=== PATIENT | male | born 1940 | race Caucasian/White ===

== ENCOUNTER → 2017-03-09 | Outpatient (CLI) | payer OTHER ==
[~2017-03-09] MED LIST: ACYC1CAP8 PO; ADVIN50050 INH; ALBU2SYP9 INH; CHOL1CAP PO; DOXA8TAB2 PO; ERYT250C PO; FLUO20CA35 PO; INSU100I SQ; LABE1TAB28 PO; MAGNESIUM CHLORIDE PO; MYCO180T PO; OMEG12006 PO; PANT40TA PO; POSA1TAB PO; PRED-301 PO; ROSU40TA PO; SODI650T8 PO; SULF1TAB92 PO; TACR0.5C3 PO; TOBR1NEB INH; [UNRECOGNIZED DRUG - CODE] SQ
[2017-03-09 14:47] LABS: URINE APPEARANCE CLOUDY (CLEAR); URINE BILIRUBIN NEG (NEG); URINE COLOR YELLOW; URINE EPITHELIAL CELL AUTO >30 /lpf (0-5); URINE NITRITE NEG (NEG); URINE SPECIFIC GRAVITY 1.021 (1.000-1.030); UROBILINOGEN NEG (NEG)
[2017-03-09 14:48] LABS: HEMATOCRIT 27.9 % (42-52); MEAN CELL VOLUME 104.1 fL (80-100); MEAN CORPUSCULAR HGB CONC 32.6 g/dl (32-36); MEAN PLATELET VOLUME 11.2 fL (7.4-10.4); PLATELET COUNT 232 K/uL (130-400); RED BLOOD COUNT 2.68 M/uL (4.7-6.1); WHITE BLOOD COUNT 5.87 K/uL (4.8-10.8)
[2017-03-09 14:51] LABS: MANUAL MICROSCOPIC REQUIRED? NO; REVIEW REQ? YES
[2017-03-09 15:21] LABS: BLOOD UREA NITROGEN 51 mg/dl (7-18); BUN/CREATININE RATIO 11.4 (10-20); CARBON DIOXIDE 24 mmol/L (21-32); CHLORIDE 107 mmol/L (98-107); FERRITIN 34.7 ng/ml (8.0-388.0); GLUCOSE 113 mg/dl (70-99); PHOSPHORUS 3.4 mg/dl (2.5-4.9); POTASSIUM 4.9 mmol/L (3.5-5.1); SODIUM 140 mmol/L (136-145); TOTAL IRON BINDING CAPACITY 326 mcg/dl (250-450)
[2017-03-09 15:27] LABS: URINE PROTIEN/CREAT RATIO 0.5 (0-0.2); URINE TOTAL PROTEIN 91.9 mg/dl (0-11.9)
== END | disposition home or self-care (01) ==
LOC: C.LAB1850 13:49
PROVIDERS: ATTEND Internal Medicine Nephrology
DX: N18.4 Chronic kidney disease, stage 4 (severe) (principal)

== ENCOUNTER → 2017-03-16 | Outpatient (CLI) | payer OTHER ==
[~2017-03-16] MED LIST changes: +PATIENT'S ALLERGY INFO NEEDS ENTERED SCH; +SODIUM CHLORIDE 0.9% 1000ML 1,000 ML IV SCH
--- NOTE | 2017-03-16 11:53 | DIAGNOSTIC IMAGING REPORT ---
RETROPERITONEAL COMPLETE, DUPLEX RENAL ARTERY HISTORY: 76 years-old Male 17.9 ADEEL (acute kidney injury)[id number] acute kidney injury. COMPARISON: None available. TECHNIQUE: Multiple real-time sonographic images of the bilateral kidneys and urinary bladder were obtained assessing grayscale appearance and color flow. Spectral and color Doppler waveform analysis was also obtained. FINDINGS: RIGHT KIDNEY: Length is 10.1 cm. Mild diffuse cortical thinning with increased renal parenchymal echogenicity is noted. No renal calculi, hydronephrosis or focal mass identified. LEFT KIDNEY: Length is 9.7 cm. Mild/moderate cortical thinning with increased echogenicity is also seen on the left. No renal calculi, hydronephrosis or focal mass identified. Urinary bladder is partially collapsed with bilateral ureteral jets documented. DUPLEX ANALYSIS: RIGHT: No evidence of renal artery stenosis. The main renal vein is patent. LEFT: No evidence renal artery stenosis. There is limited visualization of the renal artery. The main renal vein appears patent. Plug flow is noted within the aorta with peak systolic velocity of 88 cm/s. IMPRESSION: 1. Moderate cortical thinning with increased echogenicity of the bilateral kidneys suggests chronic medical renal disease. No hydronephrosis, renal calculi or focal mass identified. 2. No evidence of renal artery stenosis. 3. Partially collapsed urinary bladder lumen. The above report was generated using voice recognition software. It may contain grammatical, syntax or spelling errors. Electronically signed by: Nathaniel Dan M.D. 03/16/2017 11:51 AM Dictated Date/Time: 03/16/2017 11:46 AM
[2017-03-16 12:41] LABS: BLOOD UREA NITROGEN 51 mg/dl (7-18); BUN/CREATININE RATIO 11.4 (10-20); CALCIUM 8.9 mg/dl (8.5-10.1); CARBON DIOXIDE 20 mmol/L (21-32); CHLORIDE 108 mmol/L (98-107); GLUCOSE 116 mg/dl (70-99); PHOSPHORUS 3.4 mg/dl (2.5-4.9); POTASSIUM 4.7 mmol/L (3.5-5.1); SODIUM 140 mmol/L (136-145)
== END | disposition home or self-care (01) ==
LOC: C.ULTR 09:58
PROVIDERS: ATTEND Internal Medicine Nephrology
DX: N17.9 Acute kidney failure, unspecified (principal)

== ENCOUNTER → 2017-04-09 | Outpatient (CLI) | payer OTHER ==
[~2017-04-09] MED LIST changes: +ACYC-57 PO; -ACYC1CAP8 PO; -PATIENT'S ALLERGY INFO NEEDS ENTERED SCH; -SODIUM CHLORIDE 0.9% 1000ML 1,000 ML IV SCH
[2017-04-09 15:51] LABS: HEMATOCRIT 29.8 % (42-52); MEAN CELL VOLUME 107.6 fL (80-100); MEAN CORPUSCULAR HGB CONC 32.6 g/dl (32-36); MEAN PLATELET VOLUME 11.2 fL (7.4-10.4); PLATELET COUNT 183 K/uL (130-400); RED BLOOD COUNT 2.77 M/uL (4.7-6.1)
[2017-04-09 16:23] LABS: BLOOD UREA NITROGEN 43 mg/dl (7-18); BUN/CREATININE RATIO 12.7 (10-20); CALCIUM 8.4 mg/dl (8.5-10.1); CARBON DIOXIDE 26 mmol/L (21-32); CHLORIDE 110 mmol/L (98-107); CREATININE 3.39 mg/dl (0.60-1.40); GLUCOSE 101 mg/dl (70-99); POTASSIUM 3.6 mmol/L (3.5-5.1); SODIUM 143 mmol/L (136-145)
== END | disposition home or self-care (01) ==
LOC: C.LAB1850 14:52
PROVIDERS: ATTEND Internal Medicine Nephrology
DX: N18.5 Chronic kidney disease, stage 5 (principal)

== ENCOUNTER → 2017-05-28 | Day surgery (SDC) | payer OTHER ==
[2017-05-06 14:51] VITALS: BMI 24.0
--- NOTE | 2017-05-06 15:45 | PAT Medication Instructions ---
Service Date May 06, 2017. Current Home Medication List Acyclovir (Zovirax), 400 MG PO DAILY Albuterol Sulf (Ventolin), 2.5 MG INH Q12 Aspirin (Aspirin Ec), 81 MG PO QAM Azithromycin (Zithromax), 250 MG PO 3XWEEK Cholecalciferol (Kp Vitamin D), 1 CAP PO QAM Darbepoetin Jimenez-Polysorbate 8 (Aranesp Albumin Free), 0.3 ML SQ WK Doxazosin Mesylate (Cardura), 1 TAB PO HS Erythromycin Base (Erythromycin), 250 MG PO 3XWK Fluoxetine (Prozac), 20 MG PO QAM Fluticasone Prop/Salmeterol (Advair Diskus 500-50 Mcg/Dose), 1 INHA INH Q12 Furosemide (Lasix), 40 MG PO QAM Insulin Lispro (Human) (Humalog), Unknown Dose SQ AC PRN for BSG >140 Labetalol (Normodyne), 200 MG PO BID Montelukast Sodium (Singulair), 10 MG PO HS Mycophenolate Sodium (Myfortic), 3 TABS PO BID [place]-3 Fatty Acids ([place] 3), 2 CAP PO BID Pantoprazole (Protonix), 40 MG PO BID Posaconazole (Noxafil), 300 MG PO DAILY Prednisone (Prednisone), 5 MG PO QAM Rosuvastatin Calcium (Crestor), 40 MG PO HS Sulfamethoxazole-Trimethoprim (Bactrim 400MG/80MG), 1 TAB PO 2XWEEK Tacrolimus (Prograf), 0.5 MG PO QAM Tacrolimus (Prograf), 0.5 MG PO 3XWEEK Tobramycin (Bethkis), 300 MG INH Q12 [Slo Mag], 2 TAB PO QPM Medication Instructions For Your Scheduled Surgery -Continue as directed: Darbepoetin Jimenez-Polysorbate 8 (Aranesp Albumin Free), 0.3 ML SQ WK Azithromycin (Zithromax), 250 MG PO 3XWEEK Erythromycin Base (Erythromycin), 250 MG PO 3XWK Sulfamethoxazole-Trimethoprim (Bactrim 400MG/80MG), 1 TAB PO 2XWEEK Tacrolimus (Prograf), 0.5 MG PO 3XWEEK - Hold the following medications 2 weeks prior to surgery: [place]-3 Fatty Acids ([place] 3), 2 CAP PO BID - Contact your surgeon for instructions for: Aspirin (Aspirin Ec), 81 MG PO QAM - Hold the following medications the morning of surgery: Furosemide (Lasix), 40 MG PO QAM Cholecalciferol (Kp Vitamin D), 1 CAP PO QAM Insulin Lispro (Human) (Humalog), Unknown Dose SQ AC PRN for BSG >140 - Take the following medications the morning of surgery with a sip of water: Tobramycin (Bethkis), 300 MG INH Q12 Tacrolimus (Prograf), 0.5 MG PO QAM Prednisone (Prednisone), 5 MG PO QAM Pantoprazole (Protonix), 40 MG PO BID Mycophenolate Sodium (Myfortic), 3 TABS PO BID Fluoxetine (Prozac), 20 MG PO QAM Fluticasone Prop/Salmeterol (Advair Diskus 500-50 Mcg/Dose), 1 INHA INH Q12 Labetalol (Normodyne), 200 MG PO BID Acyclovir (Zovirax), 400 MG PO DAILY Albuterol Sulf (Ventolin), 2.5 MG INH Q12 - Take the following medications as scheduled the night before surgery: [Slo Mag], 2 TAB PO QPM Tobramycin (Bethkis), 300 MG INH Q12 Rosuvastatin Calcium (Crestor), 40 MG PO HS Posaconazole (Noxafil), 300 MG PO DAILY Mycophenolate Sodium (Myfortic), 3 TABS PO BID Fluticasone Prop/Salmeterol (Advair Diskus 500-50 Mcg/Dose), 1 INHA INH Q12 Labetalol (Normodyne), 200 MG PO BID Montelukast Sodium (Singulair), 10 MG PO HS Doxazosin Mesylate (Cardura), 1 TAB PO HS Albuterol Sulf (Ventolin), 2.5 MG INH Q12 If you have any questions please call us at [phone] or [phone] or [phone]
[2017-05-06 16:24] LABS: COMPLETE YES; EOS % 0.3 %; HEMATOCRIT 32.6 % (42-52); IG% 1.5 %; LYMPH ABS # 0.12 K/uL (1.2-3.4); MEAN CELL VOLUME 104.2 fL (80-100); MEAN CORPUSCULAR HEMOGLOBIN 34.2 pg (25-34); MEAN CORPUSCULAR HGB CONC 32.8 g/dl (32-36); MEAN PLATELET VOLUME 11.9 fL (7.4-10.4); MONO % 2.6 %; NEUT % 93.6 %; PLATELET COUNT 173 K/uL (130-400); RED BLOOD COUNT 3.13 M/uL (4.7-6.1); WHITE BLOOD COUNT 6.06 K/uL (4.8-10.8)
[2017-05-06 16:30] LABS: BUN/CREATININE RATIO 22.5 (10-20); CALCIUM 8.8 mg/dl (8.5-10.1); CREATININE 3.65 mg/dl (0.60-1.40); POTASSIUM 4.6 mmol/L (3.5-5.1)
[2017-05-06 16:40] LABS: INR 1.1 (0.9-1.1); PARTIAL THROMBOPLASTIN RATIO 0.9; PROTHROMBIN TIME (PATIENT) 11.5 SECONDS (9.0-12.0)
--- NOTE | 2017-05-06 17:04 | DIAGNOSTIC IMAGING REPORT ---
CHEST PREADMISSION(PA/LAT) HISTORY: Preop. COMPARISON: None. FINDINGS: Lucency within the right upper lung zone appears to be due to a large bulla. No definite pneumothorax. No pleural effusions. Interstitial thickening within the right mid to lower lung zone with mild elevation of the right hemidiaphragm. The left lung is clear. The heart is normal in size. An atrial septal closure device is noted. IMPRESSION: 1. Lucency within the right upper lung zone which is likely due to a large bulla. No definite pneumothorax. 2. Interstitial thickening within the right mid to lower lung zone which is age indeterminate due to the lack of a comparison study but is likely chronic. There is associated volume loss within the right hemithorax. Comparison to old studies will be helpful to evaluate for stability. Electronically signed by: Alexandro Frye M.D. 05/06/2017 5:02 PM Dictated Date/Time: 05/06/2017 4:59 PM
[~2017-05-28] VITALS: Ht 182.9 cm; Wt 80.9 kg
[~2017-05-28] MED LIST changes: +ASPI81TA28 PO; +ATROPINE SULFATE 0.1 MG/ML 5ML SYR IV PRN; +AZIT250T PO; +BUPIVACAINE/EPINEPHRINE 0.5% MPF 1:200,000 30 ML VIAL ONE; +CEFAZOLIN 2000MG IV PUSH 10 ML IV SCH; +EpHEDrine SULFATE INJ 50 MG/ML AMP IV PRN; +FENTANYL CITRATE INJ 50 MCG/1 ML 2 ML VIAL IV PRN; +FENTANYL CITRATE INJ 50 MCG/1 ML 2 ML VIAL ONE; +FRS/40 PO; +GELATIN SPONGE 12-7MM ONE; +HEPARIN SOD (PORCINE) 1000 UNIT/ML 10 ML VIAL ONE; +HydrALAZINE HCL 20 MG/ML VIAL ONE; +LIDOCAINE HCL 1% 20 ML VIAL ONE; +LIDOCAINE HCL 2% 2 ML VIAL (20MG/ML) ONE; +LIDOCAINE/EPINEPHRINE 1% 20 ML VIAL ONE; -MAGNESIUM CHLORIDE PO; +MIDAZOLAM HCL 1 MG/ML 2ML VIAL ONE; +MONT1TAB3 PO; +PROPOFOL IV EMULSION 10 MG/ML 20 ML VIAL IV ONE; +SLO MAG PO; -SODI650T8 PO; +SODIUM CHLORIDE 0.9% 1000ML 1,000 ML IV SCH; -SULF1TAB92 PO; +SULF400T7 PO; +THROMBIN FOR SOLN 20000 UNIT KIT ONE; +TRAM-10 PO; +TRAMADOL HCL 50 MG HOME PACK PO SCH
--- NOTE | 2017-05-28 06:04 | History and Physical ---
History & Physical Date of Service May 28, 2017. History & Physical CC: End stage renal disease HPI: Mr. 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 He does have renal insufficiency and may need dialysis in the future. He is here for evaluation for fistula placement. ALLERGIES: LEVOFLOXACIN, OXYCODONE. MEDICATIONS: Acyclovir, Advair Diskus, albuterol, Aranesp, and Aspir. He is also on azithromycin, Bactrim, Bethkis, Crestor, doxazosin, insulin, labetalol , Lovaza, Myfortic, Noxafil, pantoprazole, prednisone, magnesium, sodium bicarbonate, tacrolimus, vitamin D3. PAST MEDICAL HISTORY: Positive for high blood pressure, diabetes, stroke, kidney disease, and lung disease. PAST SURGICAL HISTORY: Include tonsillectomy, hernia repair, and lung transplant. He also had an eye removal in 1990, had a heart surgery in 2014 to replace a septal defect. FAMILY HISTORY: Positive for high blood pressure and cancer. REVIEW OF SYSTEMS: Ten systems reviewed. Positive findings are cold intolerance, irregular heartbeat, frequent cough, joint swelling of his legs, nausea, loss of appetite, diarrhea, occasional incontinence, ulcer in the second toe of right foot, and pain in the legs with walking. PHYSICAL EXAMINATION: The patient is awake, oriented x3. He is in no apparent distress. He has normal body habitus. Blood pressure is 172/82 on the left, 172/80 on the right. Head and neck within normal limits. I could not appreciate carotid bruits. Lungs: Distant breath sounds. Heart had a regular rate and rhythm. Abdominal exam is benign. Vascular exam of his radials, carotids, supratemporal arteries +2 bilaterally. Femorals are +2. Pedal pulses are +1 bilaterally. There is good capillary refill in both feet. Extremity exam shows a scar on the tip of the right second toe. No evidence of infection is noted. Neurologic exam is grossly intact. He does have good cephalic veins in both arms both by ultrasound and physical exam. IMPRESSION: 1. End-stage renal disease. 2. Right toe ulcer. PLAN AND RECOMMENDATIONS: At this point, we recommended a right wrist AV fistula being he is left-handed. He understood the risks, options, benefits and agreed to this procedure
[2017-05-28 12:20] VITALS: BP 190/94; PULSE 67; TEMP 36.5; O2SAT 95
[2017-05-28 12:54] VITALS: Ht 182.9 cm; Wt 80.9 kg
[2017-05-28 13:31] LABS: BUN/CREATININE RATIO 15.9 (10-20); CALCIUM 8.5 mg/dl (8.5-10.1); CREATININE 4.78 mg/dl (0.60-1.40); POTASSIUM 5.3 mmol/L (3.5-5.1)
--- NOTE | 2017-05-28 14:25 | History & Physical Bridge Note ---
H&P Re-Evaluation Bridge Note: I have examined the patient, reviewed the History & Physical and in the interval since the performance of the History & Physical I have noted the following changes of clinical significance: No changes noted
--- NOTE | 2017-05-28 16:07 | [facility] Post Operative Brief Note ---
Immediate Operative Summary Operative Date May 28, 2017. Pre-Operative Diagnosis End-stage renal disease. Post-Operative Diagnosis Same Procedure(s) Performed Right wrist anteriovenous fistula Surgeon Dr Oconnell Jack Winder Surgeon(s) Miroslava Ellison MD, Judith ESQUIVEL Estimated Blood Loss 5ml Findings good thrill Specimens none per surgeon Anesthesia MAC Complication(s) None Disposition Recovery Room / PACU
--- NOTE | 2017-05-28 16:11 | Discharge Instructions ---
Discharge Instructions Date of Service May 28, 2017. Visit Reason for Visit: End Stage Renal Disease Discharge Discharge Diagnosis / Problem: End stage renal disease Discharge Goals Goal(s): Therapeutic intervention Activity Recommendations Activity Limitations: per Instructions/Follow-up section Anesthesia . Post Anesthesia Instructions: If you have had General Anesthesia or IV Sedation: * Do not drive today. * Resume driving when surgeon permits. * Do not make important decisions or sign legal documents today. * Call surgeon for: 1. Temperature elevations greater than 101 degrees F. 2. Uncontrollable pain. 3. Excessive bleeding. 4. Persistent nausea and vomiting. 5. Medication intolerance (nausea, vomiting or rash). * For nausea and vomiting use only clear liquids such as: tea, soda, bouillon until nausea subsides, then gradually increase diet as tolerated. * If you have any concerns or questions, call your surgeon's office. If physician is unavailable and it is an emergency, call 911 or go to the nearest emergency room. . Instructions / Follow-Up Instructions / Follow-Up Call [phone] to schedule a follow up appointment if one not already scheduled. ACTIVITY RECOMMENDATIONS: See Above SPECIAL CARE INSTRUCTIONS: Call your doctor if: * Temperature above 101 degrees * Pain not relieved by pain medicine ordered * There is increased drainage or redness from any incision * You have any unanswered questions or concerns. Diet Recommendations Recommended Home Diet: resume previous diet Procedures Procedures Performed: Right wrist anteriovenous fistula Pending Studies Studies pending at discharge: no Medical Emergencies . Who to Call and When: Medical Emergencies: If at any time you feel your situation is an emergency, please call 911 immediately. . Non-Emergent Contact Non-Emergency issues call your: Surgeon . . "Provider Documentation" section prepared by Fran Oconnell. .
--- NOTE | 2017-05-28 16:22 | OPERATIVE REPORT ---
DATE OF OPERATION: 05/28/2017 PREOPERATIVE DIAGNOSIS: End-stage renal disease in need of permanent hemodialysis access. POSTOPERATIVE DIAGNOSIS: Same. PROCEDURE: Right upper extremity radiocephalic AV fistula creation. SURGEON: Dr. Fran Oconnell. GROCERY CHECKER: Dr. Miroslava Ellison and IRA Golden. ANESTHESIA: Local plus conscious sedation. INTRAVENOUS FLUIDS: 150 mL. URINE OUTPUT: Not recorded. COMPLICATIONS: None apparent. CONDITION: Stable to PACU. INDICATIONS: Mr. Bill is a 76-year-old male with end-stage renal disease, not yet on hemodialysis. He presents for placement of a permanent hemodialysis access. He was advised risks of having an AV fistula placed and he agreed to undergo the procedure. PROCEDURE: The patient was brought into the operative suite. He was prepped and draped in usual fashion. Timeout occurred. Local anesthetic with lidocaine was instilled on lateral aspect of his distal right arm. A vertical incision was made in between the cephalic vein and radial artery. Cephalic artery was dissected out. There appeared to be of adequate caliber. Next, the attention was turned to the radial artery. This was dissected out. This was found to be small; however, had appeared soft without significant calcification. It was decided that it would be adequate for fistula creation. Attention was returned to the vein. All branches were tied and the vein was transected distally. This was swung over to the radial artery. The vein was dilated with heparinized saline and found to be very distant easily. Angled bulldog clamps were applied to the radial artery. Arteriotomy was performed. The end of the vein was cut to size and an end-to-side anastomosis was made with 7-0 Prolene. Hemostasis was obtained. There was a good thrill in the graft. There was a distal pulse in the radial artery. The incision was then closed with running Vicryl sutures and subcuticular stitch. The patient tolerated the procedure well and was transferred to PACU in stable condition. Dr. Fran Oconnell was present and scrubbed for the entire case. I attest to the content of the Intraoperative Record and any orders documented therein. Any exceptions are noted below. [facility]
--- NOTE | 2017-05-28 16:35 | Anesthesiology Progress Note ---
Anesthesia Post Op Note Date & Time May 28, 2017 at 16:35 Vital Signs Pain Intensity: 0 Vital Signs Past 12 Hours Date Time Temp Pulse Resp B/P (MAP) Pulse Ox O2 Delivery O2 Flow Rate FiO2 05/28/17 16:25 36.0 66 18 155/75 99 Room Air 05/28/17 16:15 66 10 161/79 100 Oxymask 10 05/28/17 16:08 36.2 71 18 170/135 100 Oxymask 10 05/28/17 12:20 36.5 67 20 190/94 (126) 95 Room Air Notes Mental Status: alert / awake / arousable, participated in evaluation Pt Amnestic to Procedure: Yes Nausea / Vomiting: adequately controlled Pain: adequately controlled Airway Patency, RR, SpO2: stable & adequate BP & HR: stable & adequate Hydration State: stable & adequate Anesthetic Complications: no major complications apparent
[2017-05-28 16:40] VITALS: BP 162/75; PULSE 66; TEMP 36.6; O2SAT 99
== END ==
LOC: C.ACU 11:24
PROVIDERS: ATTEND Surgery Vascular Surgery
DX: N18.6 End stage renal disease (principal); L97.519 Non-pressure chronic ulcer of other part of right foot with unspecified severity; I10 Essential (primary) hypertension; E11.9 Type 2 diabetes mellitus without complications; Z86.73 Personal history of transient ischemic attack (TIA), and cerebral infarction without residual deficits; J98.4 Other disorders of lung; Z90.89 Acquired absence of other organs; Z94.2 Lung transplant status; Z90.01 Acquired absence of eye; Z79.4 Long term (current) use of insulin; I48.91 Unspecified atrial fibrillation; E78.00 Pure hypercholesterolemia, unspecified; Z95.0 Presence of cardiac pacemaker; K21.9 Gastro-esophageal reflux disease without esophagitis; Z79.82 Long term (current) use of aspirin; M19.90 Unspecified osteoarthritis, unspecified site

== ENCOUNTER → 2017-07-13 | Outpatient (CLI) | payer OTHER ==
[~2017-07-13] MED LIST changes: -ATROPINE SULFATE 0.1 MG/ML 5ML SYR IV PRN; -BUPIVACAINE/EPINEPHRINE 0.5% MPF 1:200,000 30 ML VIAL ONE; -CEFAZOLIN 2000MG IV PUSH 10 ML IV SCH; -EpHEDrine SULFATE INJ 50 MG/ML AMP IV PRN; -FENTANYL CITRATE INJ 50 MCG/1 ML 2 ML VIAL IV PRN; -FENTANYL CITRATE INJ 50 MCG/1 ML 2 ML VIAL ONE; -GELATIN SPONGE 12-7MM ONE; -HEPARIN SOD (PORCINE) 1000 UNIT/ML 10 ML VIAL ONE; -HydrALAZINE HCL 20 MG/ML VIAL ONE; -LIDOCAINE HCL 1% 20 ML VIAL ONE; -LIDOCAINE HCL 2% 2 ML VIAL (20MG/ML) ONE; -LIDOCAINE/EPINEPHRINE 1% 20 ML VIAL ONE; -MIDAZOLAM HCL 1 MG/ML 2ML VIAL ONE; -PROPOFOL IV EMULSION 10 MG/ML 20 ML VIAL IV ONE; -SODIUM CHLORIDE 0.9% 1000ML 1,000 ML IV SCH; -THROMBIN FOR SOLN 20000 UNIT KIT ONE; -TRAMADOL HCL 50 MG HOME PACK PO SCH
[2017-07-13 14:35] LABS: MEAN CELL VOLUME 107.3 fL (80-100); MEAN CORPUSCULAR HEMOGLOBIN 34.7 pg (25-34); MEAN CORPUSCULAR HGB CONC 32.4 g/dl (32-36); MEAN PLATELET VOLUME 11.6 fL (7.4-10.4); PLATELET COUNT 158 K/uL (130-400); RED CELL DISTRIBUTION WIDTH CV 13.8 % (11.5-14.5); RED CELL DISTRIBUTION WIDTH SD 54.4 fL (36.4-46.3); WHITE BLOOD COUNT 8.88 K/uL (4.8-10.8)
[2017-07-13 14:43] LABS: ALBUMIN 3.4 gm/dl (3.4-5.0); BLOOD UREA NITROGEN 60 mg/dl (7-18); CARBON DIOXIDE 23 mmol/L (21-32); CREATININE 3.22 mg/dl (0.60-1.40); GLUCOSE 103 mg/dl (70-99); POTASSIUM 5.2 mmol/L (3.5-5.1); SODIUM 138 mmol/L (136-145)
[2017-07-13 14:48] LABS: PHOSPHORUS 3.2 mg/dl (2.5-4.9); TRANSFERRIN 192 mg/dl (200-360)
== END | disposition home or self-care (01) ==
LOC: C.LAB1850 12:40
PROVIDERS: ATTEND Internal Medicine Nephrology
DX: E55.9 Vitamin D deficiency, unspecified (principal); N18.4 Chronic kidney disease, stage 4 (severe); D64.9 Anemia, unspecified

== ENCOUNTER → 2017-09-10 | Outpatient (CLI) | payer OTHER ==
[2017-09-10 15:05] LABS: ALBUMIN 3.6 gm/dl (3.4-5.0); BLOOD UREA NITROGEN 88 mg/dl (7-18); CALCIUM 8.9 mg/dl (8.5-10.1); CARBON DIOXIDE 21 mmol/L (21-32); CREATININE 3.23 mg/dl (0.60-1.40); GLUCOSE 88 mg/dl (70-99); PHOSPHORUS 3.8 mg/dl (2.5-4.9); POTASSIUM 4.2 mmol/L (3.5-5.1); SODIUM 137 mmol/L (136-145)
== END | disposition home or self-care (01) ==
LOC: C.LAB1850 13:17
PROVIDERS: ATTEND Internal Medicine Nephrology
DX: N18.4 Chronic kidney disease, stage 4 (severe) (principal); E55.9 Vitamin D deficiency, unspecified

== ENCOUNTER → 2018-01-05 | Outpatient (CLI) | payer OTHER ==
[~2018-01-05] MED LIST changes: -TRAM-10 PO
[2018-01-05 14:33] LABS: HEMATOCRIT 38.1 % (42-52); HEMOGLOBIN 12.3 g/dL (14.0-18.0)
== END | disposition home or self-care (01) ==
LOC: C.LAB1850 12:31
PROVIDERS: ATTEND Internal Medicine Nephrology
DX: D64.9 Anemia, unspecified (principal); N18.5 Chronic kidney disease, stage 5

== ENCOUNTER → 2018-02-11 | Outpatient (CLI) | payer OTHER ==
[2018-02-11 15:29] LABS: HEMATOCRIT 34.6 % (42-52); HEMOGLOBIN 11.4 g/dL (14.0-18.0); MEAN CELL VOLUME 106.1 fL (80-100); MEAN CORPUSCULAR HGB CONC 32.9 g/dl (32-36); MEAN PLATELET VOLUME 12.4 fL (7.4-10.4); PLATELET COUNT 148 K/uL (130-400); RED CELL DISTRIBUTION WIDTH CV 12.9 % (11.5-14.5)
[2018-02-11 15:42] LABS: ALBUMIN 3.3 gm/dl (3.4-5.0); BLOOD UREA NITROGEN 89 mg/dl (7-18); CALCIUM 8.8 mg/dl (8.5-10.1); CARBON DIOXIDE 25 mmol/L (21-32); GLUCOSE 120 mg/dl (70-99); PHOSPHORUS 3.9 mg/dl (2.5-4.9); POTASSIUM 3.7 mmol/L (3.5-5.1); SODIUM 140 mmol/L (136-145)
== END | disposition home or self-care (01) ==
LOC: C.LABBC 13:42
PROVIDERS: ATTEND Internal Medicine Nephrology
DX: N18.5 Chronic kidney disease, stage 5 (principal)

== ENCOUNTER 2018-10-04 07:38 | Inpatient (IN) ==
[~2018-10-04 07:38] MED LIST changes: -ACYC-57 PO; -ADVIN50050 INH; -ALBU2SYP9 INH; -ASPI81TA28 PO; -AZIT250T PO; -CHOL1CAP PO; -DOXA8TAB2 PO; -ERYT250C PO; -FLUO20CA35 PO; -FRS/40 PO; +HEPARIN (PORCINE) 1000 UNIT/ML 10 ML (CATH LAB USE ONLY) ONE; -INSU100I SQ; -LABE1TAB28 PO; +MIDAZOLAM HCL 1 MG/ML 2ML VIAL ONE; -MONT1TAB3 PO; -MYCO180T PO; +NITROGLYCERIN/D5W 100MCG/ML 20ML SYR ONE; +NiCARDipine HCL INJ 2.5 MG/ML 10 ML AMP ONE; -OMEG12006 PO; -PANT40TA PO; -POSA1TAB PO; -PRED-301 PO; -ROSU40TA PO; -SLO MAG PO; -SULF400T7 PO; -TACR0.5C3 PO; -TOBR1NEB INH; -[UNRECOGNIZED DRUG - CODE] SQ; +fentaNYL citrate 100 MCG/2 ML VIAL ONE
[2018-10-04] MEDS ORDERED: SODIUM CHLORIDE 0.9% 500 ML IV SCH (08:00)
[2018-10-04] MEDS ORDERED: MIDAZOLAM HCL 1 MG/ML 2ML VIAL ONE (08:02)
[2018-10-04] MEDS ORDERED: fentaNYL citrate 100 MCG/2 ML VIAL ONE (08:03)
[2018-10-04 08:15] LABS: Basophils # (auto) 0.04 K/uL (0-0.2); Basophils % (auto) 0.4 %; Eosinophils # (auto) 0.26 K/uL (0-0.5); Eosinophils % (auto) 2.7 %; Hematocrit (blood only) 36.3 % (42-52); Immature Granulocytes # (auto) 0.03 K/uL (0.00-0.02); Immature Granulocytes % (auto) 0.3 %; Lymphocytes # (auto) 1.85 K/uL (1.2-3.4); Lymphocytes % (auto) 18.9 %; Mean Corpuscular Hgb Conc 33.1 g/dL (32-36); Mean Corpuscular Volume 105.2 fL (80-100); Mean Platelet Volume 11.6 fL (7.4-10.4); Monocytes # (auto) 1.02 K/uL (0.11-0.59); Monocytes % (auto) 10.4 %; Neutrophils % (auto) 67.3 %; Platelet Count 190 K/uL (130-400); RDW Standard Deviation 53.4 fL (36.4-46.3); Red Blood Count 3.45 M/uL (4.7-6.1)
[2018-10-04 08:28] LABS: Partial Thromboplastin Ratio 0.8; Partial Thromboplastin Time 21.1 Seconds (21.0-31.0); Prothrombin Time 10.6 Seconds (9.0-12.0)
[2018-10-04] MEDS ORDERED: CLOPIDOGREL BISULFATE 300 MG TAB ONE (08:41)
[2018-10-04 08:43] LABS: Albumin Level 3.2 gm/dl (3.4-5.0); BUN Creatinine Ratio 11.9 (10-20); Calcium 10.8 mg/dl (8.5-10.1); Est GFR (African American) 26.2; Est GFR (Non-African American) 22.6; Magnesium 2.3 mg/dl (1.8-2.4); Potassium 3.8 mmol/L (3.5-5.1)
[2018-10-04 08:59] LABS: Albumin Globulin Ratio 0.8 (0.9-2); Bilirubin,Total 1.1 mg/dl (0.2-1); Globulin 3.9 gm/dl (2.5-4.0); Phosphorus 3.1 mg/dl (2.5-4.9); Total Protein 7.1 gm/dl (6.4-8.2); Troponin I 0.068 ng/ml (0-0.045)
[2018-10-04] MEDS ORDERED: ICU PROTOCOL FOR HYPERGLYCEMIA PRN ×2 (09:12→09:13)
--- NOTE | 2018-10-04 09:22 | Pre Anesthesia Assessment ---
Date of Service October 04, 2018 Pre Sedation Assessment Vital Signs Temp Pulse Resp BP Pulse Ox 10/04/18 07:47 100 10/04/18 07:35 37.8 C H 74 24 163/92 H 100 Cardiovascular RRR, no murmur, no edema Respiratory normal respiratory effort, lungs clear to auscultation Pre-Sedation Airway Assessment Smoking Status: Current every day smoker Hx Sleep Apnea: No Hx Difficult Intubation: No Short, Thick Neck: No Thyromental Distance: > or= 3.5 Finger Breadths Oral Cavity: + WNL Mallampati Class: III Procedure Planning Contraindications for Sedation: none Current Medications Reviewed: Yes Notes The planned sedation has been discussed with the patient. Informed Consent was obtained. I have identified the patient, determined the appropriateness of sedation and have assessed the patient immediately prior to the procedure. All medicine(s) and interventions are by my order.
--- NOTE | 2018-10-04 09:23 | Post Anesthesia Assessment ---
Date of Service October 04, 2018 Post Sedation Assessment Vital Signs Temp Pulse Resp BP Pulse Ox 10/04/18 07:47 100 10/04/18 07:35 37.8 C H 74 24 163/92 H 100 Recovery Score Activity: Moves 4 extremities Respiration: Deep Breath/Cough Circulation: +/-20% PreAnes Value Consciousness: Fully Awake Oxygen Saturation: O2 needed for >90% Discharge Sedation Level of Care: Fast Track Phase II Post Sedation Plan On clinical assessment, the patient appears to have tolerated the sedation without complications. Patient is recovering as anticipated. Patient will continue to be monitored by nursing and may be discharged when sedation discharge criteria are met per below protocol. Upon Completions of procedure and additional 15 minutes continue every 5 minute vital signs and the P.A.R. score; then discharge to a Phase I or Fast Track to Phase II per the following guidelines: * Discharge Patient to appropriate Phase II area if PAR is 8 or greater or return to pre- procedure baseline. The post - procedure orders will be as directed. * If PAR score is less than 8 or not return to pre-procedure baseline then patient will follow Phase I monitoring till PAR is reached for Phase II. The Phase I may be done in procedure room or may call to secure a Phase I area. * If naloxone or flumazenil are used for reversal, hold in Phase I for continued monitoring from when last reversal dose was given for a minimum of 60 minutes or longer pending the nurse and/or physician discretion of patient condition before discharge to Phase II. Please call the Sedation Physician to re-evaluate and complete post-note for discharge to Phase II area. Do NOT discharge from procedure sedation or Phase 1 until post- sedation evaluation note is complete by procedure /sedation MD Sedation Discharge Instructions to be given to the patient at discharge to home.
--- NOTE | 2018-10-04 09:30 | Cardiac Catheterization ---
Cardiac Cath Procedure Full Procedure Date October 04, 2018 Pre-Procedure Diagnosis Pre-Procedure Diagnosis: STEMI AUC Score AUC Score: 9 Post-Procedure Diagnosis Post-Procedure Diagnosis: Severe CAD, Successful PCI and Normal Intracardiac Pressures Procedure(s) Performed Procedure(s) Performed: Coronary Angiography, Left Heart Cath, Drug Eluting Stent and IVUS Sail Cutter Chidi Blair MD Printing Services Coordinator(s) De Luna Estimated Blood Loss Estimated Blood Loss: 15 Medication(s) Medication(s): Clopidogrel, Fentanyl, Heparin, Lidocaine 1%, Nicardipine, Nitroglycerin and Versed Summary of Findings Indication: STEMI/Heart Alert 77-year-old man with a history of single lung transplant for IPF in 2012, advanced chronic kidney disease with right upper extremity fistula in preparation for dialysis, coronary artery disease post prior PCI with stents to LAD and circumflex in 04/2018, prior PFO closure who presented with acute chest pain beginning several hours before arrival. EKG in route showed impressive anterior ST elevations and heart alert activated from the field. Access: 6 Fr right common femoral artery Catheters: EBU 3.5 guide; JR4, AR-1, pigtail diagnostics Findings: LM -luminal irregularities LAD - 30% proximal stenosis, patent proximal to mid prior stents, distal aspect of prior stent underexpanded. Immediately after prior stents 99% hazy stenosis just before takeoff of second diagonal. Mid, distal luminal irregularities as wraps around apex. CAN II flow in distal LAD, second diagonal. Circumflex -large caliber vessel, 20-30% mid segment disease, 30-40% disease in large OM 2 RCA -dominant, 50% ostial stenosis (no pressure dampening with catheter engagement), 40% mid segment disease. 30% distal disease. PDA, PLB is without significant disease LVEDP -15 -- PCI -- Antithrombotic therapy: Heparin, clopidogrel Procedure: Left main cannulated with EBU 3.5 guide and guide liner Mortar Carrier 50 wire passed across lesion into distal vessel Mid LAD lesion predilated with 2.0 compliant balloon Distal aspect of prior stent postdilated to high atmospheres with 3.0 NC balloon IVUS used to assess extent of disease inside stent and stent expansion. Dilated mid LAD lesion stented with 3.0 x 15 mm Jarrod drug-eluting stent. Proximal aspect of stent overlapped with distal aspect of prior stent Stent post-dilated with 3.0 noncompliant balloon IC vasodilators administered for spasm Post procedure CAN 3 flow, stent well expanded with minimal residual stenosis and no apparent cardiac complications. Arterial Closure: TR band Summary: 1. Anterior STEMI/subtotal occlusion of mid LAD just after prior stent 2. Moderate non-culprit coronary artery disease -50% ostial RCA 3. Normal intracardiac filling pressure 4. Successful PCI of mid LAD with single drug-eluting stent (3.0 x 15 mm Onyxoverlapped with distal aspect of prior stent). Recommendations: Admit to ICU for continued monitoring Loaded with clopidogrel 600 mg Continue dual-antiplatelet therapy for at least 1 year, likely indefinitely. Trend troponins until peak, Check Echo Consult cardiac Rehab Hemodynamics Rest Ao:: 182/93/131 Final Ao: 179/94/131 LV: 150/50 Recommendations Recommendations: PCI without planned CABG Specimens Specimens: None Radiation Exposure (mGy) 3804 Contrast (mls) 140 Fluids (cc crystalloids) Fluids (cc crystalloids): 31 Drains Drains: none Anesthesia moderate Procedural Complication(s) None Disposition ICU ACC Data: Mobile [employer] Cardiac Status Clinical evaluation leading to the procedure CAD Presenation: STEMI Anginal Classification: CCS IV Heart Failure: No Cardiogenic Shock within 24 Hours: No Cardiac Arrest within 24 Hours: No Imaging Studies Past 6 Months: No Stress Studies Past 6 Months: No Diagnostic Physicians Name: Chidi Blair MD Status: Emergency Closure Device Percutaneous Entry Location: Radial Closure Device: Radial Band Recommendations: PCI without planned CABG PCI Indication: Immediate PCI for STEMI First Noted: First EKG Lesion Segment Name: mid LAD Culprit Artery: Yes Stenosis Prior to Rx (%): 99 Chronic Total Occlusion: No IVUS: No FFR: No Pre-Procedure CAN Flow: 2 Previously Treated Lesion: Timeframe: 1-5 months Treated with Stent: Yes In- Stent Restenosis: Yes Stent Type: MITCHELL Yes Lesion Complexity: High/C Lesion Length (mm): 12 Thrombus Present: Yes Bifurcation Lesion: Yes Guidewire Across Lesion: Stenosis Post-Procedure (%): 0 Post-Procedure CAN Flow: 3 Devices(s) Deployed: Yes Yes Intraprocedure Events Significant Disection: No Perforation: No
[2018-10-04] MEDS ORDERED: GLUCOSE 10 TABS/TUBE PO PRN (09:37)
[2018-10-04] MEDS ORDERED: CARBOHYDRATES FOR HYPOGLYCEMIA PO PRN (09:37)
[2018-10-04] MEDS ORDERED: DEXTROSE 50% 50 ML SYRINGE IV PRN (09:37)
[2018-10-04] MEDS ORDERED: GLUCOSE 40% GEL 15 GM TUBE PO PRN (09:37)
[2018-10-04] MEDS ORDERED: GLUCAGON FOR INJ 1 MG VIAL SQ PRN (09:37)
[2018-10-04] MEDS ORDERED: ONDANSETRON INJ 2 MG/ML 2 ML VIAL IV PRN (09:45)
--- NOTE | 2018-10-04 09:53 | History & Physical Report ---
Date of Service October 04, 2018 Assessment & Plan (1) ST elevation (STEMI) myocardial infarction: Patient presented to the ER today with complaint of chest pain, left jaw pain, vomiting and diaphoresis. Was found to have STEMI. Initial troponin: 0.068. Patient was taken emergently to the [facility]. Cardiac cath: LAD - 30% proximal stenosis, patent proximal to mid prior stents, distal aspect of prior stent underexpanded. Immediately after prior stents 99% hazy stenosis just before takeoff of second diagonal. -Pt s/p stent to LAD -Admit to ICU for continued monitoring -Loaded with clopidogrel 600 mg -Continue aspirin and plavix for at least 1 year, likely indefinitely per cardiology. -Trend troponin -Check echo -Consult cardiology -Cardiac rehab consult (2) CAD (coronary artery disease): Hx CAD. S/P MITCHELL to LAD and circumflex in 05/2018. Follows with Dr Chopra -plavix, aspirin, statin, labetalol -further plan as above (3) Elevated temperature: Initial temperature in ER 37.8C. Reported that pt was diaphoretic with CP. Current temp: 36.9 Pt reports chronic diarrhea. Hx C-diff in 05/2018 and finished 14 day course of oral vancomycin. CXR: No significant change compared to the prior study. No acute process. Stable chronic changes within the right hemithorax as described above. -pending blood cultures -pending UA and urine culture -will monitor for any further diarrhea -monitor for further fevers -continue pt's prophylaxis antibiotics, antivirals (4) Paroxysmal atrial fibrillation: Off anticoagulation secondary to reported bleeding and anemia Current sinus rhythm -continue labetalol (5) Hyperglycemia: Hx hyperglycemia secondary to chronic steroid use A1c: 5.5 on 04/2018 -Hold home humalog sliding scale -Novolog sliding scale per protocol -A1c in am (6) HTN (hypertension): Current BP 151/84 -continue labetalol, cardura (7) CKD (chronic kidney disease) stage 5, GFR less than 15 ml/min: AV fistula in place. Not on HD yet. Follows with Dr Sterling Cr: 2.6. 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 [address] Rodriguez at [facility] Continue myfortic, tacrolimus, Advair, singulair, albuterol, inhaled tobramycin, prednisone, Bactrim, acyclovir, posaconazole, azithromycin (10) Hypomagnesemia: Chronic Magnesium: 2.3 -continue magnesium supplement (11) GERD (gastroesophageal reflux disease): -continue PPI (12) HLD (hyperlipidemia): Lipid panel on 07/25/18: total: 133, HDL: 54, LDL: 56, Triglycerides: 113 -Continue statin (13) Mood disorder: -Continue fluoxetine (14) Chronic anemia: Hgb: 12. Baseline 9-10 -monitor H&H (15) Thrombocytopenia: Chronic Plt: 190. Baseline ~140s -monitor CBC DVT Prophylaxis -SCDs Full Code as per discussion with pt Follows with Dr Lindo for routine care Pt was seen with Dr Beth. 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 Patient reports during the middle night started with anterior chest pain and left jaw pain with associated nausea and vomiting a couple of times. Also reports diaphoresis. Denies increased shortness of breath. Denies palpitations, dizziness. Pt with hx c-diff in 05/2018 and completed oral vancomycin. Patient reports chronic diarrhea with approximately 4 episodes daily. Denies fever/chills, HARRIS, syncope, vision changes, neck pain, orthopnea, cough, sore throat, choking, otalgia, rhinorrhea, abdominal pain, paresthesias, weakness, extremity edema, rashes, urinary symptoms. In ER pt found to have STEMI and was taken to the [facility] lab[facility]. Pt s/p stent to LAD and is in ICU and reports is currently CP free. Allergies Allergy/AdvReac Type Severity Reaction Status Date / Time levofloxacin Allergy Intermediate ANAPHYLAXIS Verified 10/03/18 11:27 oxycodone Allergy Intermediate ANAPHYLAXIS Verified 10/03/18 11:27 cat dander Allergy Unknown CHEST Verified 10/03/18 11:27 TIGHTNESS Home Medications Home Medications Medication Instructions Recorded Confirmed Type Bethkis 150 mg INHALATION Q12H 05/09/18 10/04/18 History Noxafil 300 mg PO HS 05/09/18 10/04/18 History acetaminophen [Tylenol Extra 500 mg PO Q6H PRN 05/09/18 10/04/18 History Strength] acyclovir 400 mg PO QAM 05/09/18 10/04/18 History albuterol sulfate 2.5 mg INHALATION BID 05/09/18 10/04/18 History aspirin 81 mg PO QAM 05/09/18 10/04/18 History azithromycin [Zithromax] 250 mg PO 3XWK 05/09/18 10/04/18 History calcitriol 0.25 mcg PO 3XWK 05/09/18 10/04/18 History cholecalciferol (vitamin D3) 1,000 unit PO QAM 05/09/18 10/04/18 History darbepoetin nicholas in polysorbat 1.01 ml SUBCUT WK 05/09/18 10/04/18 History doxazosin 8 mg PO QAM 05/09/18 10/04/18 History fluticasone propion-salmeterol 1 inh INHALATION Q12H 05/09/18 10/04/18 History [Advair Diskus] furosemide [Lasix] 40 mg PO QAM 05/09/18 10/04/18 History labetalol 100 mg PO BID 05/09/18 10/04/18 History montelukast [Singulair] 10 mg PO PM 05/09/18 10/04/18 History mycophenolate sodium [Myfortic] 360 mg PO BID 05/09/18 10/04/18 History omega-3 acid ethyl esters [Lovaza] 2 cap PO BID 05/09/18 10/04/18 History pantoprazole [Protonix] 40 mg PO BID 05/09/18 10/04/18 History prednisone 5 mg PO QAM 05/09/18 10/04/18 History rosuvastatin [Crestor] 40 mg PO HS 05/09/18 10/04/18 History sodium bicarbonate 650 mg PO BID 05/09/18 10/04/18 History sulfamethoxazole-trimethoprim 1 tab PO 2XWK 05/09/18 10/04/18 History [Bactrim] tacrolimus [Prograf] 0.5 mg PO BID 05/09/18 10/04/18 History clopidogrel 75 mg PO QAM 07/21/18 10/04/18 History ondansetron 4 mg disintegrating 4 mg PO TID PRN 08/10/18 10/04/18 History tablet insulin lispro (U- 100) 100 12 unit SUBCUT UD 10/03/18 10/04/18 History unit/mL subcutaneous pen fluoxetine 40 mg PO DAILY 10/04/18 10/04/18 History Past Med/Surg History Medical History Hyperglycemia (Chronic) Paroxysmal atrial fibrillation (Chronic) Idiopathic pulmonary fibrosis (Chronic) 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 GI CONCERNED AND FEELS SCOPE IS NECESSARY Surgical History S/P patent foramen ovale closure (Resolved) Lung transplant status (Chronic) Hx of heart artery stent (Chronic) S/P MITCHELL to LAD and circumflex after NSTEMI in 05/2018 History of cardiac cath [place]2 MAY 2018 [place] [facility] [place] Family History Father , in his seventies of cancer No problems noted. Mother , age 88 of CHF No problems noted. Daughter Age: 45 No problems noted. Son Age: 44 No problems noted. 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 Last drink Last night) Hx Substance Use: No well-balanced diet: daily or most days caffeine: Yes (1 cup in am) Review of Systems All systems reviewed & are unremarkable except as noted in HPI & below Physical Exam Vital Signs (Past 24 Hours): Last Vital Signs Temp 37.8 C H 10/04/18 07:35 Pulse 74 10/04/18 07:35 Resp 24 10/04/18 07:35 BP 163/92 H 10/04/18 07:35 Pulse Ox 100 10/04/18 07:47 Physical Exam: General: no acute distress, chronic ill appearing, non-toxic appearance, WDWN Head: normocephalic, atraumatic; Right forehead with erythema dry skin extending to right orbit (pt receiving radiation for squamous cell skin cancer) Eyes: L eye: PERRL, EOM's intact, conjunctiva non-injected, anicteric ENT: Hard of hearing, normal inspection external ears, nose, mucous membranes moist Neck: supple, trachea midline Lungs: no respiratory distress, scattered rhonchi to auscultation anteriorly, pt currently supine s/p cardiac cath to right groin. CV: RRR, no JVD, no pretibial edema Abd: normal BS, soft, non-tender Ext: no cyanosis, no calf tenderness Neuro: A&O x 3, no focal deficits noted, normal affect Skin: warm, dry, as above on face. R groin with dressing in place and is dry and intact Results & Data Laboratory Results Short CBC 10/04/18 Range/Units 07:53 WBC 9.80 (4.8-10.8) K/uL Hgb 12.0 L (14.0-18.0) g/dL Hct 36.3 L (42-52) % Plt Count 190 (130-400) K/uL BMP 10/04/18 07:53 Sodium 140 Potassium 3.8 Chloride 107 Carbon Dioxide 22 BUN 31 H Creatinine 2.63 H Glucose 148 H Calcium 10.8 H Cardiac Enzymes 10/04/18 Range/Units 07:53 Troponin I 0.068 H* (0-0.045) ng/ml Liver Function 10/04/18 Range/Units 07:53 Total Bilirubin 1.1 H (0.2-1) mg/dl AST 18 (15-37) U/L ALT 15 (12-78) U/L Alkaline Phosphatase 97 (45-117) U/L Albumin 3.2 L (3.4-5.0) gm/dl Diagnostic Findings CXR: IMPRESSION: No significant change compared to the prior study. No acute process. Stable chronic changes within the right hemithorax as described above. ECG Rhythm: sinus rhythm Findings: + ST elevation (septal, anterior, lateral) Supervising Physician Co-Signing Physician Notes Patient is a 77-year-old male with history of coronary artery disease status post PCI and other medical problems presents with history of retrosternal chest pain associated with left jaw pain, diaphoresis, nausea and vomiting. Patient was noted to have STEMI on EKG and was taken to cardiac [facility] emergently. Patient underwent cardiac catheterization and stent placement to LAD. Please review HPI for complete details of presentation. Patient is seen and examined at bedside. Patient is chronically appearing, no apparent distress after the cardiac catheterization. Normocephalic atraumatic, scattered rhonchi no auscultation, S1-S2, no murmur, no pedal edema. Patient is admitted in ICU for management of STEMI. Continue aspirin, Plavix, statin, beta-cally. Echo showed moderate concentric LVH, large area of severe hypokinesis to akinesis involving the entire septum and apex. EF is 30-35%. Trace aortic regurgitation, mild aortic root dilatation. Appreciate cardiology/critical care input. His Prozac is discontinued and started on Zoloft due to interaction with Plavix. I personally reviewed the record. Patient is interviewed and examined at bedside. Patient's care is coordinated with Bety Velazquez. Please refer to the documentation above for details of patient's presentation and for discussion of other issues. (1) ST elevation (STEMI) myocardial infarction Involved coronary artery: unspecified coronary artery Qualified Code(s): I21.3 - ST elevation (STEMI) myocardial infarction of unspecified site
[2018-10-04] MEDS ORDERED: SODIUM CHLORIDE 0.9% 1000ML 1,000 ML IV SCH (10:00)
--- NOTE | 2018-10-04 10:27 | Emergency Department Note ---
Entered by Fabi Child acting as a scribe for History of Present Illness General Chief complaint: Heart Alert Mode of arrival: EMS History of Present Illness Provider complaint: chest pain Onset (ago): hour(s) (several) Location: chest Radiation: non-radiation Pain Consistency: + constant Quality: + other (chest pain) Associated symptoms: + other (nausea, vomiting, diarrhea) Treatments prior to arrival: other (nitroglycerin, zofran) The patient is a 77 year old white male w/ PMHx of MT, HTN, Afib, diabetes, CVA, CKD, s/p lung transplant, s/p foramen ovale closure, s/p cardiac stent x2, who presents to the ED w/ CC of constant chest pain beginning several hours ago. He reports the pain is in the center of his chest, and does not radiate elsewhere. The patient reports nausea, vomiting, and diarrhea. 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 He reports the nitroglycerin did not improve his pain. I initiated a pre-hospital heart alert based on EKG that showed St elevations in V2 through V4. Home Medications Home Medications Medication Instructions Recorded Confirmed Type acetaminophen [Tylenol Extra 500 mg PO Q6H PRN 05/09/18 10/03/18 History Strength] acyclovir 400 mg PO QAM 05/09/18 10/03/18 History albuterol sulfate 2.5 mg INHALATION BID 05/09/18 10/03/18 History aspirin 81 mg PO QAM 05/09/18 10/03/18 History azithromycin [Zithromax] 250 mg PO 3XWK 05/09/18 10/03/18 History calcitriol 0.25 mcg PO 3XWK 05/09/18 10/03/18 History cholecalciferol (vitamin D3) 1,000 unit PO QAM 05/09/18 10/03/18 History darbepoetin nicholas in polysorbat 1.01 ml SUBCUT WK 05/09/18 10/03/18 History doxazosin 8 mg PO QAM 05/09/18 10/03/18 History fluoxetine [Prozac] 20 mg PO QAM 05/09/18 10/03/18 History fluticasone propion-salmeterol 1 inh INHALATION Q12H 05/09/18 10/03/18 History [Advair Diskus] furosemide [Lasix] 40 mg PO QAM 05/09/18 10/03/18 History labetalol 100 mg PO BID 05/09/18 10/03/18 History montelukast [Singulair] 10 mg PO PM 05/09/18 10/03/18 History mycophenolate sodium [Myfortic] 360 mg PO BID 05/09/18 10/03/18 History omega-3 acid ethyl esters [Lovaza] 2 cap PO BID 05/09/18 10/03/18 History pantoprazole [Protonix] 40 mg PO BID 05/09/18 10/03/18 History posaconazole [Noxafil] 300 mg PO HS 05/09/18 10/03/18 History prednisone 5 mg PO QAM 05/09/18 10/03/18 History rosuvastatin [Crestor] 40 mg PO HS 05/09/18 10/03/18 History sodium bicarbonate 650 mg PO BID 05/09/18 10/03/18 History sulfamethoxazole-trimethoprim 1 tab PO 2XWK 05/09/18 10/03/18 History [Bactrim] tacrolimus [Prograf] 0.5 mg PO BID 05/09/18 10/03/18 History tobramycin [Bethkis] 150 mg INHALATION Q12H 05/09/18 10/03/18 History clopidogrel 75 mg PO QAM 07/21/18 10/03/18 History acetazolamide ER 500 mg 500 mg PO BID 08/10/18 10/03/18 History capsule,extended release ondansetron 4 mg disintegrating 4 mg PO TID PRN 08/10/18 10/03/18 History tablet insulin lispro (U- 100) 100 12 unit SUBCUT UD 10/03/18 10/03/18 History unit/mL subcutaneous pen Allergies Allergy/AdvReac Type Severity Reaction Status Date / Time levofloxacin Allergy Intermediate ANAPHYLAXIS Verified 10/03/18 11:27 oxycodone Allergy Intermediate ANAPHYLAXIS Verified 10/03/18 11:27 cat dander Allergy Unknown CHEST Verified 10/03/18 11:27 TIGHTNESS Past Med/Surg History Medical History Idiopathic pulmonary fibrosis (Chronic) 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 GI CONCERNED AND FEELS SCOPE IS NECESSARY Surgical History S/P patent foramen ovale closure (Resolved) Lung transplant status (Chronic) Hx of heart artery stent (Chronic) S/P MITCHELL to LAD and circumflex after NSTEMI in 05/2018 History of cardiac cath STENTS X2 MAY 2018 (SEE [facility] [place] RECORD ) Family History Father , in his seventies of cancer No problems noted. Mother , age 88 of CHF No problems noted. Daughter Age: 45 No problems noted. Son Age: 44 No problems noted. Other No significant family history Social History Preferred Language: Macedonian Beliefs That Will Affect Care: None marital status: Current Living Situation: Spouse current occupational status: retired Feels Safe at Home: Yes Smoking Status: Current every day smoker Hx Alcohol Use: Yes Hx Substance Use: No well-balanced diet: daily or most days caffeine: Yes (1 cup in am) Review of Systems See HPI for pertinent positives & negatives. and A total of 10 systems reviewed and were otherwise negative Physical Exam Vital Signs Vital Signs - 24 hr 10/04/18 07:35 10/04/18 07:47 Temperature 37.8 C H Temperature Source Oral Sepsis Recent Fever Within 48 Hours No Sepsis New/Unexplained Change in Mental Status No Sepsis Action Taken by Nursing No Action Required Pulse Rate 74 Respiratory Rate 24 Respiratory Depth Normal Blood Pressure 163/92 H Blood Pressure Mean 115 Pulse Oximetry 100 100 Oxygen Delivery Method Nasal Cannula Nasal Cannula Oxygen Flow Rate 2 2 GENERAL: Moderate distress, in pain. EYE EXAM: Normal conjunctiva. PERRL, no anisocoria and EOM's grossly intact w/o pain. OROPHARYNX: Moist MM. NECK: Supple, no nuchal rigidity, no adenopathy, non-tender. No signs of meningismus. LUNGS: Clear to auscultation. Normal chest wall mechanics. HEART: NSR, no MRG. ABDOMEN: Epigastric discomfort. Abdomen soft, normo-active bowel sounds, no masses, no rebound or guarding. BACK: No CVA TTP. SKIN: No rashes and no bruising. UPPER EXTREMITIES: Upper extremities are grossly normal. LOWER EXTREMITIES: No pitting edema. No calf pain. NEURO EXAM: A and O x3. GCS 15. Moves all 4 extremities on command w/o issue. Course 0739: Past medical records reviewed. The patient was evaluated in room A1, and a complete history and physical examination were performed. 0749: I reviewed the patient's case with Dr. Blair, [facility] rn triage, at bedside. The patient will be taken to the catheterization lab. 0759: I discussed the patient's case with Dr. Cummings, [facility]. Consultations Consultation #1: Dr. Blair, [facility] rn triage Time: 07:49 Consultation #2: Dr. Cummings [facility] Time: 07:59 Administered Medications Discontinued Medications Clopidogrel Bisulfate (Plavix) Confirm Administered Dose 600 mg .ROUTE .STK-MED ONE Stop: 10/04/18 08:42 Last Admin: 10/04/18 09:02 Dose: 600 mg Documented by: [id number] Fentanyl Citrate (Fentanyl Citrate) Confirm Administered Dose 100 mcg .ROUTE .STK-MED ONE Stop: 10/04/18 07:38 Last Admin: 10/04/18 08:50 Dose: 100 mcg Documented by: [id number] Fentanyl Citrate (Fentanyl Citrate) Confirm Administered Dose 100 mcg .ROUTE .STK-MED ONE Stop: 10/04/18 08:04 Last Admin: 10/04/18 09:01 Dose: Not Given Documented by: [id number] Heparin Sodium (Porcine) (Heparin Iv Bolus (Occupational Health Nurse Manager Use Only)) Confirm Administered Dose 10,000 units .ROUTE .STK-MED ONE Stop: 10/04/18 07:38 Last Admin: 10/04/18 08:51 Dose: 11,000 units Documented by: [id number] Heparin Sodium/Sodium Chloride (Heparin/Nss 1000 Unit/500ml Flush Bag) Confirm Administered Dose 3,000 units IV .STK-MED ONE Stop: 10/04/18 07:39 Last Admin: 10/04/18 08:49 Dose: 3,000 units Documented by: [id number] Sodium Chloride (Nss) 500 mls @ 999 mls/hr IV .Q31M MARLYS Stop: 10/04/18 08:30 Last Admin: 10/04/18 10:01 Dose: Not Given Documented by: [id number] Midazolam HCl (Versed) Confirm Administered Dose 2 mg .ROUTE .STK-MED ONE Stop: 10/04/18 07:38 Last Admin: 10/04/18 08:51 Dose: 2 mg Documented by: [id number] Midazolam HCl (Versed) Confirm Administered Dose 2 mg .ROUTE .STK-MED ONE Stop: 10/04/18 08:03 Last Increment: 10/04/18 08:51 Dose: 1 mg Documented by: [id number] Nicardipine HCl (Cardene) Confirm Administered Dose 25 mg .ROUTE .STK-MED ONE Stop: 10/04/18 07:39 Last Admin: 10/04/18 08:49 Dose: 25 mg Documented by: [id number] Nitroglycerin/Dextrose (Nitroglycerin/D5w 100 Mcg/Ml 20ml Syringe) Confirm Administered Dose 2,000 mcg .ROUTE .STK-MED ONE Stop: 10/04/18 07:39 Last Admin: 10/04/18 08:50 Dose: 2,000 mcg Documented by: [id number] Medical Decision Making Medical Records Attestation: I reviewed the patient's medical records. Home Medications Current Medication List: was personally reviewed by me Laboratory Data Attestation: I reviewed the patient's lab results. Result diagrams: 10/04/18 07:53 10/04/18 07:53 Lab Results 10/04/18 10/04/18 10/04/18 Range/Units 07:17 07:53 07:53 WBC 9.80 (4.8-10.8) K/uL RBC 3.45 L (4.7-6.1) M/uL Hgb 12.0 L (14.0-18.0) g/dL Hct 36.3 L (42-52) % MCV 105.2 H (80-100) fL MCH 34.8 H (25-34) pg MCHC 33.1 (32-36) g/dL RDW Std Deviation 53.4 H (36.4-46.3) fL RDW Coeff of Ros 14.0 (11.5-14.5) % Plt Count 190 (130-400) K/uL MPV 11.6 H (7.4-10.4) fL Immature Gran % (Auto) 0.3 % Neut % (Auto) 67.3 % Lymph % (Auto) 18.9 % Ford % (Auto) 10.4 % Eos % (Auto) 2.7 % Baso % (Auto) 0.4 % Immature Gran # (Auto) 0.03 H (0.00-0.02) K/uL Neut # (Auto) 6.60 H (1.4-6.5) K/uL Lymph # (Auto) 1.85 (1.2-3.4) K/uL Ford # (Auto) 1.02 H (0.11-0.59) K/uL Eos # (Auto) 0.26 (0-0.5) K/uL Baso # (Auto) 0.04 (0-0.2) K/uL PT (9.0-12.0) Seconds INR (0.9-1.1) APTT (21.0-31.0) Seconds PTT Ratio Activ Coag Time Kaolin 252 H (94-140) SECONDS Sodium 140 (136-145) mmol/L Potassium 3.8 (3.5-5.1) mmol/L Chloride 107 (98-107) mmol/L Carbon Dioxide 22 (21-32) mmol/L Anion Gap 12.0 H (3-11) BUN 31 H (7-18) mg/dl Creatinine 2.63 H (0.6-1.4) mg/dl Est Cr Clr Drug Dosing 27.0 ml/min Est GFR ( Amer) 26.2 Est GFR (Non-Af Amer) 22.6 BUN/Creatinine Ratio 11.9 (10-20) Glucose 148 H (70-99) mg/dl Calcium 10.8 H (8.5-10.1) mg/dl Phosphorus 3.1 (2.5-4.9) mg/dl Magnesium 2.3 (1.8-2.4) mg/dl Total Bilirubin 1.1 H (0.2-1) mg/dl AST 18 (15-37) U/L ALT 15 (12-78) U/L Alkaline Phosphatase 97 (45-117) U/L Troponin I 0.068 H* (0-0.045) ng/ml Total Protein 7.1 (6.4-8.2) gm/dl Albumin 3.2 L (3.4-5.0) gm/dl Globulin 3.9 (2.5-4.0) gm/dl Albumin/Globulin Ratio 0.8 L (0.9-2) Lipase 220 (73-393) U/L 10/04/18 Range/Units 07:53 WBC (4.8-10.8) K/uL RBC (4.7-6.1) M/uL Hgb (14.0-18.0) g/dL Hct (42-52) % MCV (80-100) fL MCH (25-34) pg MCHC (32-36) g/dL RDW Std Deviation (36.4-46.3) fL RDW Coeff of Ros (11.5-14.5) % Plt Count (130-400) K/uL MPV (7.4-10.4) fL Immature Gran % (Auto) % Neut % (Auto) % Lymph % (Auto) % Ford % (Auto) % Eos % (Auto) % Baso % (Auto) % Immature Gran # (Auto) (0.00-0.02) K/uL Neut # (Auto) (1.4-6.5) K/uL Lymph # (Auto) (1.2-3.4) K/uL Ford # (Auto) (0.11-0.59) K/uL Eos # (Auto) (0-0.5) K/uL Baso # (Auto) (0-0.2) K/uL PT 10.6 (9.0-12.0) Seconds INR 1.0 (0.9-1.1) APTT 21.1 (21.0-31.0) Seconds PTT Ratio 0.8 Activ Coag Time Kaolin (94-140) SECONDS Sodium (136-145) mmol/L Potassium (3.5-5.1) mmol/L Chloride (98-107) mmol/L Carbon Dioxide (21-32) mmol/L Anion Gap (3-11) BUN (7-18) mg/dl Creatinine (0.6-1.4) mg/dl Est Cr Clr Drug Dosing ml/min Est GFR ( Amer) Est GFR (Non-Af Amer) BUN/Creatinine Ratio (10-20) Glucose (70-99) mg/dl Calcium (8.5-10.1) mg/dl Phosphorus (2.5-4.9) mg/dl Magnesium (1.8-2.4) mg/dl Total Bilirubin (0.2-1) mg/dl AST (15-37) U/L ALT (12-78) U/L Alkaline Phosphatase (45-117) U/L Troponin I (0-0.045) ng/ml Total Protein (6.4-8.2) gm/dl Albumin (3.4-5.0) gm/dl Globulin (2.5-4.0) gm/dl Albumin/Globulin Ratio (0.9-2) Lipase (73-393) U/L ECG Data Attestation: I personally reviewed and interpreted this ECG as follows: Indication: chest pain Rate (beats per minute): 79 Rhythm: normal sinus Findings: + other (normal intervals. ), + ST elevation (V2, V3, V4), + acute is chemic change and + left axis deviation Blood Pressure Blood Pressure Findings: Elevated blood pressure Blood Pressure Disposition: further management by hospitalist ANDREW Narrative The patient is a 77 year old white male w/ PMHx of MT, HTN, Afib, diabetes, CVA, CKD, s/p lung transplant, s/p foramen ovale closure, s/p cardiac stent x2, who presents to the ED w/ CC of constant chest pain beginning several hours ago. Etiologies such as shingles, musculoskeletal pain, pericarditis, myocarditis, cardiac ischemia, pericardial tamponade, pneumonia, pneumothorax, pleural effusion, hemothorax, pleurisy, aortic pathology, pulmonary embolism, intra- abdominal process, as well as others were considered. Patient was seen and evaluated the bedside. I did receive the prehospital EKG and made the patient a heart alert given the concern for ST changes in the anterior leads. Patient is a prior history of lung transplant hypertension hyperlipidemia and prior CAD status post stent x2. The patient is on aspirin and Plavix. The patient did receive 3 nitro in route and full dose aspirin. Upon assessment at the bedside the patient was still having chest pain associat ed nausea and vomiting. She is repeat EKG still shows ST changes. Patient was subsequently taken to the cardiac catheterization lab after the patient had been seen and evaluated by the information technology data analyst. They will order heparin as well as any other antiplatelet medication in the cardiac catheterization lab. Given that the patient was febrile on arrival blood cultures were also added in addition to other blood work. The patient was taken to cardiac catheterization lab prior to review of any blood work. Patient was subsequently taken to the cardiac catheterization lab. I did speak the on-call hospitalist who agreed to further evaluate treat the patient post cardiac catheterization. Impression & Plan ST elevation (STEMI) myocardial infarction, Chest pain, Fever, CKD (chronic kidney disease) stage 4, GFR 15-29 ml/min Critical Care Time I have personally spent greater than 35 minutes of critical care time in the direct management of this patient. This includes bedside care, interpretation of diagnostic studies, and testing, discussion with consultants, patient, and f amily members, and other required patient management activities. This 35 minutes is in excess of all separately billable procedures. Critical Care Time: Yes Total Critical Care Time: 35 Discharge Plan Visit Data *Final* Discharge Date/Time: 10/04/18 07:55 Chief Complaint: Heart Alert ED Provider: Braxton Tijerina Discharge Problem: ST elevation (STEMI) myocardial infarction, Chest pain, Fever, CKD (chronic kidney disease) stage 4, GFR 15-29 ml/min Patient Disposition: Being Evaluated by Surgeon Discharge Instructions Interventions: ED Discharge Assessment Last Done: 10/04/18 07:55 The scribe's documentation has been prepared under my direction and personally reviewed by me in its entirety. I confirm that the note above accurately reflects all work, treatment, procedures, and medical decision making performed by me.
[2018-10-04] MEDS ORDERED: TOBRAMYCIN INH SCH (10:45)
--- NOTE | 2018-10-04 10:51 | XRay Report ---
XR chest 1V portable HISTORY: Atypical chest pain. COMPARISON: Chest 05/09/2018. FINDINGS: No significant change in the chronic interstitial thickening within the right mid to lower lung zone with lucency at the right lung apex suggestive of bullous emphysema. There is stable volume loss within the right hemithorax. The heart is normal in size. The left lung is clear. No pleural ef fusions. IMPRESSION: No significant change compared to the prior study. No acute process. Stable chronic changes within th e right hemithorax as described above. Electronically signed by: Alexandro Frye M.D. 10/04/2018 10:50 AM
[2018-10-04] MEDS: LABETALOL HCL 100 MG TAB PO SCH ×2 (11:25→20:50)
[2018-10-04] MEDS: INSULIN ASPART 100 UNITS/ML 3 ML PEN SC SCH ×3 (11:38→20:56)
--- NOTE | 2018-10-04 12:57 | Critical Care Consultation ---
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 Need for ICU stay for post-PCI monitoring in an individual with s/p lung transplant on immunosuppressants. Neuro: Cam negative Cardiac/Vascular: Hx of CAD, HLD, HTN, paroxysmal afib, MO in 2018 with MITCHELL to LAD and Circumflex that is s/p post STEMI with successful PCI with MITCHELL to LAD. * Pulse with in normal limits 70s-80s and normal * Blood pressure and was hypertensive upon arrival to floor s/p PCI with systolic in the 150s-170s and diastolic values 79-106. But, had his home lebatolol dose restarted at 11:25am and had readings obtained this afternoon are WNL with 12:30pm 126/76 and 1:30pm 132/75. * Systolic readings support good contractility without signs of cardiogenic failure. * ASA 81mg PO qAM, Plavix 75mg PO qAM, Crestor 40mg PO qhs per cardiac recs. * Will monitor for signs of post MO cardiac complications. * Was off of his anticoagulation for paroxysmal afib because of reported bleeding and anemia. Currently in sinus rhythm. * Trop on presentation to ED prior to PCI was 0.068. Pulm: Lung transplant recipient in 2012 at [facility], following with Dr. Rodriguez at [facility]. H/O Idiopathic Pulmonary Fibrosis. * Continue treatment regimen which includes immunosuppressive medications. * Continue with myfortic, tacrolimus, advair, singulair, inhaled tobramycin, prednisone, bactrim, acyclovir, azithromycin. * Posaconazole not available by hospital pharmacy, however, spouse went home to get medication which is used for ppx for fungal infection. * Continue with home inhalers, Advair Diskus 500/50. Albuterol BID scheduled. 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 * Hx GERD, continue PPI Protonix 40mg PO BID * Diet: Heart healthy, carb consistent or DM2 Renal/electrolytes: * Reported Stage V CKD with AV fistula in place. * Electrolytes Na+, K+, Magnesium were WNL on ED labs. * ED labs this morning showed hypercalcemia with corrected mena of 11.44. :No das cath, urinating currently without difficulty Endo: DM II - ICU hyperglycemic protocol. A1C on 04/2018 was 5.5. * H/o hyperparathyroidism with elevated PTH intact on .19 of 91.5 per review of old EMR. ED labs this morning showed hypercalcemia with corrected mena of 11.44. Heme: History of chronic anemia, this morning Hgb =12. Baseline appears 9-10. * Platelets WNL 190. * Will continue to monitor for any signs of bleeding * Upon presentation to ED, WBC 9.8. On Pred, on immunosuppressants. 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 * Elevated temp this morning on presentation to ED of 37.8 degrees C. Suspect inflammatory cause from MO. However, concern for fever in an immunosuppressed individual. No recorded fevers since. * was able to bring Posaconazole from which is prophylactic treatment because of susceptibility for fungal infection. Our pharmacy does not have medication, will give home dose. * Continue with home Tobramycin 150mg inhaled BID * Continue with Zithromax 250mg M// prophylactic * Bactrim 1 tab PO Wednesday/ prophylactic Lines: peripheral lines intact DVT ppx: Dual anti-platelet therapy with plavix and ASA; SCDs. Resuscitation status: Full Code. Supervising Physician Co-Signing Physician Notes Dr. Calvo was resident physician during care of patient. I separately evaluate d patient for fleming portions of the history and the exam. I was present during the critical portion of medical decision making, and I discussed the case with the resident. I generally agree with the findings and plan. Patient was discussed with Dr. Chopra of cardiology, patient has significant drug drug interactions, with regards to Plavix versus Brilinta Dr. Chopra feels Plavix is better as he has been on this in the cardiac lesion is new and does not appear to be associated with failure of treatment. If we converted to Brilinta he would have different drug drug interactions and may require further modification of his therapy. He is on posaconazole which we do not carry this is a suppressive agent for previous Aspergillus infection. The family will be bringing that in for him to take while in the hospital. I have personally spent 40 minutes of critical care time in the direct management of this patient. This is a life/limb threatening event. This includes time spent evaluating patient, direct bedside care, chart review, placing orders, interpretation of diagnostic studies, discussion with consultants, patient, and/or family members regarding treatment decisions, as well as other required patient management activities. This time is exclusive of all separately billable procedures, and teaching time and separate from and in addition to any other critical care service time. There is a report for a fever, we do have blood cultures pending at this time. I have reviewed the chest x-ray dated October 04, 2018 and I reviewed the radiology report which was compared to May 09, 2018. No significant interval change. History of Present Illness Attending Physician: Dex Beth MD Allergies Allergy/AdvReac Type Severity Reaction Status Date / Time levofloxacin Allergy Intermediate ANAPHYLAXIS Verified 10/03/18 11:27 oxycodone Allergy Intermediate ANAPHYLAXIS Verified 10/03/18 11:27 cat dander Allergy Unknown CHEST Verified 10/03/18 11:27 TIGHTNESS Home Medications Home Medications Medication Instructions Recorded Confirmed Type Bethkis 150 mg INHALATION Q12H 05/09/18 10/04/18 History Noxafil 300 mg PO HS 05/09/18 10/04/18 History acetaminophen [Tylenol Extra 500 mg PO Q6H PRN 05/09/18 10/04/18 History Strength] acyclovir 400 mg PO QAM 05/09/18 10/04/18 History albuterol sulfate 2.5 mg INHALATION BID 05/09/18 10/04/18 History aspirin 81 mg PO QAM 05/09/18 10/04/18 History azithromycin [Zithromax] 250 mg PO 3XWK 05/09/18 10/04/18 History calcitriol 0.25 mcg PO 3XWK 05/09/18 10/04/18 History cholecalciferol (vitamin D3) 1,000 unit PO QAM 05/09/18 10/04/18 History darbepoetin nicholas in polysorbat 1.01 ml SUBCUT WK 05/09/18 10/04/18 History doxazosin 8 mg PO QAM 05/09/18 10/04/18 History fluticasone propion-salmeterol 1 inh INHALATION Q12H 05/09/18 10/04/18 History [Advair Diskus] furosemide [Lasix] 40 mg PO QAM 05/09/18 10/04/18 History labetalol 100 mg PO BID 05/09/18 10/04/18 History montelukast [Singulair] 10 mg PO PM 05/09/18 10/04/18 History mycophenolate sodium [Myfortic] 360 mg PO BID 05/09/18 10/04/18 History omega-3 acid ethyl esters [Lovaza] 2 cap PO BID 05/09/18 10/04/18 History pantoprazole [Protonix] 40 mg PO BID 05/09/18 10/04/18 History prednisone 5 mg PO QAM 05/09/18 10/04/18 History rosuvastatin [Crestor] 40 mg PO HS 05/09/18 10/04/18 History sodium bicarbonate 650 mg PO BID 05/09/18 10/04/18 History sulfamethoxazole-trimethoprim 1 tab PO 2XWK 05/09/18 10/04/18 History [Bactrim] tacrolimus [Prograf] 0.5 mg PO BID 05/09/18 10/04/18 History clopidogrel 75 mg PO QAM 07/21/18 10/04/18 History ondansetron 4 mg disintegrating 4 mg PO TID PRN 08/10/18 10/04/18 History tablet insulin lispro (U- 100) 100 12 unit SUBCUT UD 10/03/18 10/04/18 History unit/mL subcutaneous pen fluoxetine 40 mg PO DAILY 10/04/18 10/04/18 History Patient History Medical History Hyperglycemia (Chronic) Paroxysmal atrial fibrillation (Chronic) Idiopathic pulmonary fibrosis (Chronic) 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 GI CONCERNED AND FEELS SCOPE IS NECESSARY Surgical History S/P patent foramen ovale closure (Resolved) Lung transplant status (Chronic) Hx of heart artery stent (Chronic) S/P MITCHELL to LAD and circumflex after NSTEMI in 05/2018 History of cardiac cath STENTS X2 MAY 2018 (SEE [facility] RECORD ) Family History Father , in his seventies of cancer No problems noted. Mother , age 88 of CHF No problems noted. Daughter Age: 45 No problems noted. Son Age: 44 No problems noted. Other No significant family history Social History Preferred Language: Yoruba Communication Ability: Effective Ammonium Nitrate Crystallizer Required: No Beliefs That Will Affect Care: None marital status: Current Living Situation: Spouse current occupational status: retired Other Information That Helps Us Care for You: No Feels Safe at Home: Yes Safety Concerns: Feels Safe At This Time Smoking Status: Current every day smoker Hx Alcohol Use: Yes (3 drinks a day. Last drink Last night) Hx Substance Use: No well-balanced diet: daily or most days caffeine: Yes (1 cup in am) Review of Systems Respiratory: no dyspnea Physical Exam Vital Signs (Past 24 Hours): Last Vital Signs Temp 36.9 C 10/04/18 07:41 Pulse 76 10/04/18 12:30 Resp 18 10/04/18 12:30 BP 126/76 10/04/18 12:30 Pulse Ox 99 10/04/18 12:30 Constitutional: WD/WN, vitals as above cooperative and comfortable; no acute distress ENMT: erythema to right forehead from temporal to midline and from hairline to eyebrow with central linear old well healed scar consistent with history of moh's and radiation for SCC. Neck: normal visual inspection and trachea midline Cardiovascular: Rate/Rhythm: regular rate and regular rhythm distant heart sounds Gastrointestinal (Abdomen): Inspection/Auscultation: normal bowel sounds Percussion/Palpation: abdomen soft; abdomen nontender Neurologic: moves all extremities and awake Psychiatric: A+Ox3, euthymic affect Results & Data Laboratory Results Laboratory Results - last 24 hr 10/04/18 10/04/18 10/04/18 07:17 07:53 07:53 WBC 9.80 RBC 3.45 L Hgb 12.0 L Hct 36.3 L MCV 105.2 H MCH 34.8 H MCHC 33.1 RDW Std Deviation 53.4 H RDW Coeff of Ros 14.0 Plt Count 190 MPV 11.6 H Immature Gran % (Auto) 0.3 Neut % (Auto) 67.3 Lymph % (Auto) 18.9 Grand % (Auto) 10.4 Eos % (Auto) 2.7 Baso % (Auto) 0.4 Immature Gran # (Auto) 0.03 H Neut # (Auto) 6.60 H Lymph # (Auto) 1.85 Grand # (Auto) 1.02 H Eos # (Auto) 0.26 Baso # (Auto) 0.04 PT INR APTT PTT Ratio Activ Coag Time Kaolin 252 H Sodium 140 Potassium 3.8 Chloride 107 Carbon Dioxide 22 Anion Gap 12.0 H BUN 31 H Creatinine 2.63 H Est Cr Clr Drug Dosing 27.0 Est GFR ( Amer) 26.2 Est GFR (Non-Af Amer) 22.6 BUN/Creatinine Ratio 11.9 Glucose 148 H POC Glucose Calcium 10.8 H Phosphorus 3.1 Magnesium 2.3 Total Bilirubin 1.1 H AST 18 ALT 15 Alkaline Phosphatase 97 Troponin I 0.068 H* Total Protein 7.1 Albumin 3.2 L Globulin 3.9 Albumin/Globulin Ratio 0.8 L Lipase 220 Nasal Screen MRSA (PCR) 10/04/18 10/04/18 10/04/18 07:53 09:55 11:37 WBC RBC Hgb Hct MCV MCH MCHC RDW Std Deviation RDW Coeff of Ros Plt Count MPV Immature Gran % (Auto) Neut % (Auto) Lymph % (Auto) Grand % (Auto) Eos % (Auto) Baso % (Auto) Immature Gran # (Auto) Neut # (Auto) Lymph # (Auto) Grand # (Auto) Eos # (Auto) Baso # (Auto) PT 10.6 INR 1.0 APTT 21.1 PTT Ratio 0.8 Activ Coag Time Kaolin Sodium Potassium Chloride Carbon Dioxide Anion Gap BUN Creatinine Est Cr Clr Drug Dosing Est GFR ( Amer) Est GFR (Non-Af Amer) BUN/Creatinine Ratio Glucose POC Glucose 114 H Calcium Phosphorus Magnesium Total Bilirubin AST ALT Alkaline Phosphatase Troponin I Total Protein Albumin Globulin Albumin/Globulin Ratio Lipase Nasal Screen MRSA (PCR) Negative Medications Administered Sodium Chloride (Nss 1000ml) 1,000 mls @ 100 mls/hr IV .Q10H MARLYS Stop: 10/04/18 14:59 Last Admin: 10/04/18 10:49 Dose: 100 mls/hr Documented by: [id number] Insulin Aspart (Novolog Flexpen) 0 units SC ACHS MARLYS Stop: 11/03/18 11:29 Last Admin: 10/04/18 11:38 Dose: Not Given Documented by: [id number] Cosigned by: [id number] Labetalol HCl (Normodyne) 200 mg PO BID MARLYS Stop: 11/03/18 10:29 Last Admin: 10/04/18 11:25 Dose: 200 mg Documented by: [id number] Miscellaneous (Order Awaiting Action) 1 ea N/A QS MARLYS Stop: 11/03/18 15:59 Last Admin: 10/04/18 14:16 Dose: Not Given Documented by: [id number] Miscellaneous (Order Awaiting Action) 1 ea N/A QS MARLYS Stop: 11/03/18 15:59 Last Admin: 10/04/18 14:16 Dose: Not Given Documented by: [id number] Resident Activity Tracking Resident Involvement: Resident Care Provided Care Provided: Adult Hospital Medicine
--- NOTE | 2018-10-04 14:17 | Consultation Report ---
DATE OF CONSULTATION: 10/04/2018 INPATIENT CARDIOLOGY CONSULTATION CONSULTATION REQUESTED BY: Bety Weathers PA-C. REASON FOR CONSULTATION: Acute ST segment elevation myocardial infarction. HISTORY OF PRESENT ILLNESS: Mr. Bill is a very pleasant 77-year-old gentleman who normally follows with myself as an outpatient for his history of coronary artery disease and paroxysmal atrial fibrillation. He presented to [facility] early in the a.m. of 10/04/2018 with complaints of chest pain. The patient states he went to bed last night in his normal state of health when he woke up suddenly this morning with a sharp chest pain. He describes it as sharp pain going across his precordium with radiation up to his jaw. This was associated with some shortness of breath, diaphoresis, nausea, and vomiting. He also had some diarrhea with it. The patient was concerned because this was very similar in nature to the pain he had prior to his previous LAD stent in [place]; however, this pain seemed to be much more severe. His tried giving him nitroglycerin without any significant improvement and he was brought into the Emergency Department. In ____ Department, he was found to have an acute ST segment elevation myocardial infarction. He was taken emergently to the cardiac catheterization lab by Dr. Blair who was able to place a drug-eluting stent to the mid LAD just prior to his previous stent for a 99% occlusion. The patient has now been transferred to the intensive care unit. He is resting comfortably with his at his side and states he is now feeling much better and has not had any further chest discomfort since the catheterization. He has not yet received his normal morning meds though. PAST SURGICAL HISTORY: 1. Lung transplant. 2. PCI to the LAD and circumflex in the setting of a non-ST segment elevation myocardial infarction May 2018. 3. PFO status post closure. 4. Colonoscopy. 5. Left upper extremity fistula not yet used. MEDICAL ILLNESSES: 1. Coronary artery disease, status post non-ST segment elevation MA. 2. History of PFO, status post closure. 3. Paroxysmal atrial fibrillation. 4. History of GI bleed while on triple therapy. 5. Idiopathic pulmonary fibrosis, status post lung transplant. 6. Stage IV chronic kidney disease, not yet on hemodialysis. 7. GERD. 8. History of CVAs. 9. History of tobacco abuse. FAMILY HISTORY: Noncontributory. SOCIAL HISTORY: The patient is a former smoker. Drinks occasional alcohol. Denies any recreational drug use. He is and lives at home with his . REVIEW OF SYSTEMS: As per HPI. All other review of systems reviewed and negative at this time. ALLERGIES: 1. LEVOFLOXACIN. 2. OXYCODONE 3. CAT DANDER. MEDICATIONS AN OUTPATIENT: 1. Aspirin 81 mg daily. 2. Plavix 75 mg daily. 3. Labetalol 200 mg b.i.d. 4. Doxazosin 8 mg at bedtime. 5. Lasix 40 mg p.o. daily. 6. Protonix b.i.d. 7. Insulin as directed. 8. Crestor 40 mg daily. 9. Prozac daily. PHYSICAL EXAMINATION: VITALS: Temperature 37.8, pulse 82, respiratory rate 12, blood pressure 163/106. GENERAL: Awake, alert, oriented x3, in no acute distress, lying flat, feeling well. HEENT: Normocephalic, atraumatic. Pupils equal, round, reactive to light and accommodation. Extraocular muscles intact. Anicteric sclerae. Moist mucous membranes. Chronic red erythematous rash over his right orbit, unchanged. NECK: No JVD, no bruit. CARDIOVASCULAR: Regular. Positive S4. Normal S1 and S2. No S3. No murmurs or rubs. PULMONARY: Clear to auscultation bilaterally. No rales, rhonchi, or wheezing. ABDOMEN: Bowel sounds x4, soft. No rebound, guarding, tenderness. No organomegaly. EXTREMITIES: No clubbing, cyanosis or edema. +2 pedal pulses bilaterally. SKIN: Warm and dry. TEST RESULTS AND LABORATORY STUDIES OF SIGNIFICANCE: Sodium 140, potassium 3.8, BUN 31, creatinine 2.6, which is approximately his baseline creatinine. EKG upon presentation to the Emergency Room shows profound ST segment elevations across the anterior leads with tombstone appearing and reciprocal ST segment depressions in the inferior leads. Bedside echocardiogram is pending at this time. IMPRESSION: 1. Acute ST segment elevation myocardial infarction, status post PCI to the mid LAD. 2. History of coronary artery disease with previous LAD stenting along with stenting to the circumflex, May 2018. 3. History of idiopathic pulmonary fibrosis, status post double lung transplant. 4. Stage IV chronic kidney disease with left upper extremity fistula, not yet on dialysis. 5. Hypertension. 6. Dyslipidemia. 7. Diabetes. 8. Paroxysmal atrial fibrillation with a history of gastrointestinal bleed while on triple therapy. RECOMMENDATIONS: It was my pleasure to see Mr. Bill in consultation today. From a cardiac standpoint, the patient has already undergone successful PCI to the culprit lesion with great angiographic result. So at this point, we will reinstitute his oral medications. His blood pressure is elevated at this time as is heart rate, but he has not yet received his morning labetalol, so I will start that now. Ideally, I believe he would be better off on metoprolol for beta cally; however, given the acute event, I will hold off on making any changes at this juncture. Otherwise, we will need to follow his renal function very closely and consult nephrology, so we start seeing a significant downward trend, given his chronic history of stage IV chronic kidney disease. In regards to his history of paroxysmal atrial fibrillation, I am very hopeful that he will not go back in atrial fibrillation, given the fact he did have significant GI bleeding on triple anticoagulation in the past and we will follow him closely. The patient will be monitored in the intensive care unit for 24 hours and then transferred to telemetry for additional 48 afterwards.
[2018-10-04] MEDS: FLUTICASONE/SALMETEROL (ADVAIR) 500/50 INH 14 PUFF INH SCH ×2 (14:35→20:48)
[2018-10-04] MEDS: PANTOprazole 40 MG TAB PO SCH ×2 (15:20→20:51)
[2018-10-04 17:48] LABS: Appearance Urine Clear (Clear); Bacteria Urine Automated Negative (Negative); Bilirubin Urine Negative (Negative); Blood Urine 3+ (Negative); Color Urine Yellow; Epithelial Cell Urine Auto >30 /lpf (0-5); Glucose Urine UA Negative (Negative); Ketones Urine Negative (Negative); Leukocyte Esterase Urine Negative (Negative); Nitrite Urine Negative (Negative); Protein Urine 4+ (Negative); Specific Gravity Urine > 1.045 (1.000-1.030); Urobilinogen Urine Negative (Negative)
[2018-10-04] MEDS: ALBUTEROL 0.083% NEBU SOLN 3 ML VIAL INH SCH (20:01)
[2018-10-04] MEDS: ROSUVASTATIN CALCIUM 20 MG TAB PO SCH (20:48)
[2018-10-04] MEDS: MYCOPHENOLATE SODIUM 180 MG TAB PO SCH (20:49)
[2018-10-04] MEDS: POSACONAZOLE 100 MG PO SCH (20:50)
[2018-10-04] MEDS: TACROLIMUS 0.5 MG CAP PO SCH (20:51)
[2018-10-04] MEDS: MONTELUKAST SODIUM 10 MG TABLET PO SCH (20:52)
[2018-10-04] MEDS: SODIUM BICARBONATE 650 MG TAB PO SCH (20:52)
[2018-10-04] MEDS: TOBRAMYCIN SULFATE INH SCH (20:56)
[2018-10-04] MEDS ORDERED: LABETALOL HCL 100 MG TAB PO SCH (21:00)
[2018-10-05 04:22] LABS: Basophils # (auto) 0.03 K/uL (0-0.2); Basophils % (auto) 0.5 %; Eosinophils # (auto) 0.15 K/uL (0-0.5); Eosinophils % (auto) 2.6 %; Hematocrit (blood only) 31.1 % (42-52); Hemoglobin 10.2 g/dL (14.0-18.0); Immature Granulocytes # (auto) 0.01 K/uL (0.00-0.02); Immature Granulocytes % (auto) 0.2 %; Lymphocytes # (auto) 0.43 K/uL (1.2-3.4); Lymphocytes % (auto) 7.5 %; Mean Corpuscular Hgb Conc 32.8 g/dL (32-36); Mean Corpuscular Volume 105.1 fL (80-100); Monocytes # (auto) 1.05 K/uL (0.11-0.59); Monocytes % (auto) 18.4 %; Neutrophils # (auto) 4.04 K/uL (1.4-6.5); Neutrophils % (auto) 70.8 %; Platelet Count 144 K/uL (130-400); RDW Coefficient of Variation 14.3 % (11.5-14.5); RDW Standard Deviation 54.3 fL (36.4-46.3); Red Blood Count 2.96 M/uL (4.7-6.1); White Blood Count 5.71 K/uL (4.8-10.8)
[2018-10-05 04:47] LABS: BUN Creatinine Ratio 11.8 (10-20); Calcium 8.6 mg/dl (8.5-10.1); Creatinine Clr Calc Pharmacy 22.8 ml/min; Est GFR (Non-African American) 19.8; Phosphorus 4.3 mg/dl (2.5-4.9); Potassium 3.8 mmol/L (3.5-5.1)
--- NOTE | 2018-10-05 06:27 | Critical Care Progress Note ---
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 Need for ICU stay for post-PCI monitoring in an individual with s/p lung transplant on immunosuppressants. Neuro: Cam negative Cardiac/Vascular: Hx of CAD, HLD, HTN, paroxysmal afib, LA in 2018 with MITCHELL to LAD and Circumflex that is s/p post STEMI with successful PCI with MITCHELL to LAD. * Pulse with in normal limits * Blood pressure within normal limits * Systolic readings support good contractility without signs of cardiogenic failure. * ASA 81mg PO qAM, Plavix 75mg PO qAM, Crestor 40mg PO qhs per cardiac recs. * Will monitor for signs of post LA cardiac complications. * Was off of his anticoagulation for paroxysmal afib because of reported bleeding and anemia. Currently in sinus rhythm. * Trop on presentation to ED prior to PCI was 0.068. * Echocardiogram from 10/04/18 * LV normal in size; Moderate concentric LVH; EF=30-35% * Large area of severe hypokinesis to akinesis involving the entire septum and apex. There is mild expansion but no thinning of the myocardium. * Aortic valve sclerosis moderate, without significant aortic valve stenosis * Trace aortic regurg * Trace mitral regurg * Mild aortic root dilation Pulm: Lung transplant recipient in 2012 at [facility], following with Dr. Rodriguez at [facility]. H/O Idiopathic Pulmonary Fibrosis. * Continue treatment regimen which includes immunosuppressive medications. * Continue with myfortic, tacrolimus, advair, singulair, inhaled tobramycin, prednisone, bactrim, acyclovir, azithromycin. * Posaconazole not available by hospital pharmacy, however, spouse went home to get medication which is used for ppx for fungal infection. * Continue with home inhalers, Advair Diskus 500/50. Albuterol BID scheduled. 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 * Hx GERD, continue PPI Protonix 40mg PO BID * Diet: Heart healthy, carb consistent or DM2 Renal/electrolytes: * Reported Stage V CKD with AV fistula in place. * Electrolytes Na+, K+, Magnesium were WNL on ED labs. * ED labs this morning showed calcium within normal limits. :No das cath, urinating currently without difficulty Endo: DM II - ICU hyperglycemic protocol. A1C on 04/2018 was 5.5. * H/o hyperparathyroidism with elevated PTH intact on 07.22.18 of 91.5 per review of old EMR. Heme: History of chronic anemia, this morning Hgb =12. Baseline appears 9-10. * Platelets WNL 144. * Will continue to monitor for any signs of bleeding * Upon presentation to ED, WBC 9.8. On Pred, on immunosuppressants. 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 * Elevated temp this morning on presentation to ED of 37.8 degrees C. Suspect inflammatory cause from LA. However, concern for fever in an immunosuppressed individual. No recorded fevers since. * was able to bring Posaconazole from which is prophylactic treatment because of susceptibility for fungal infection. Our pharmacy does not have medication, will give home dose. * Continue with home Tobramycin 150mg inhaled BID * Continue with Zithromax 250mg // prophylactic * Bactrim 1 tab PO Wednesday/ prophylactic Lines: peripheral lines intact DVT ppx: Dual anti-platelet therapy with plavix and ASA; SCDs. Resuscitation status: Full Code. Stable for downgrade out of ICU. Supervising Physician Co-Signing Physician Notes Dr. Calvo was resident physician during care of patient. I separately evaluated patient for fleming portions of the history and the exam. I was present during the critical portion of medical decision making, and I discussed the case with the resident. I generally agree with the findings and plan. Patient was discussed on multidisciplinary rounds Holding labetalol per cardiology recommendations, mild ADEEL continue with normal medications. Supplemental potassium 40 M EQ's K-Dur today stable for downgrade out of the ICU. Echocardiogram reviewed Subjective Shaun states he is doing well this morning, is tolerating diet, no nausea, no vomiting, fever, chills, chest pain, shortness of breath, numbness. Physical Exam Vital Signs (Past 24 Hours): Last Vital Signs Temp 36.7 C 10/05/18 04:01 Pulse 74 10/05/18 04:31 Resp 25 H 10/05/18 04:31 BP 118/70 10/05/18 04:31 Pulse Ox 99 10/05/18 04:31 Constitutional: WD/WN, vitals as above cooperative and comfortable; no acute distress Neck: normal visual inspection and trachea midline Respiratory: normal respiratory effort, lungs clear to auscultation no respiratory distress Cardiovascular: Rate/Rhythm: regular rate and regular rhythm Gastrointestinal (Abdomen): Inspection/Auscultation: normal bowel sounds Percussion/Palpation: abdomen soft; abdomen nontender Neurologic: moves all extremities and awake Psychiatric: A+Ox3, euthymic affect Results & Data Laboratory Results Laboratory Results - last 24 hr 10/04/18 10/04/18 10/05/18 20:55 21:29 04:11 WBC 5.71 RBC 2.96 L Hgb 10.2 L Hct 31.1 L MCV 105.1 H MCH 34.5 H MCHC 32.8 RDW Std Deviation 54.3 H RDW Coeff of Ros 14.3 Plt Count 144 MPV 11.0 H Immature Gran % (Auto) 0.2 Neut % (Auto) 70.8 Lymph % (Auto) 7.5 Traverse % (Auto) 18.4 Eos % (Auto) 2.6 Baso % (Auto) 0.5 Immature Gran # (Auto) 0.01 Neut # (Auto) 4.04 Lymph # (Auto) 0.43 L Traverse # (Auto) 1.05 H Eos # (Auto) 0.15 Baso # (Auto) 0.03 Sodium Potassium Chloride Carbon Dioxide Anion Gap BUN Creatinine Est Cr Clr Drug Dosing Est GFR ( Amer) Est GFR (Non-Af Amer) BUN/Creatinine Ratio Glucose POC Glucose 117 H Estimat Average Glucose Hemoglobin A1c Calcium Phosphorus Magnesium Troponin I 63.800 H* Triglycerides Cholesterol LDL Cholesterol, Calc VLDL Cholesterol, Calc HDL Cholesterol Cholesterol/HDL Ratio 10/05/18 10/05/18 10/05/18 04:11 04:11 07:31 WBC RBC Hgb Hct MCV MCH MCHC RDW Std Deviation RDW Coeff of Ros Plt Count MPV Immature Gran % (Auto) Neut % (Auto) Lymph % (Auto) Traverse % (Auto) Eos % (Auto) Baso % (Auto) Immature Gran # (Auto) Neut # (Auto) Lymph # (Auto) Traverse # (Auto) Eos # (Auto) Baso # (Auto) Sodium 139 Potassium 3.8 Chloride 107 Carbon Dioxide 24 Anion Gap 8.0 BUN 35 H Creatinine 2.93 H D Est Cr Clr Drug Dosing 22.8 Est GFR ( Amer) 23.0 Est GFR (Non-Af Amer) 19.8 BUN/Creatinine Ratio 11.8 Glucose 118 H POC Glucose 126 H Estimat Average Glucose 111 Hemoglobin A1c 5.5 Calcium 8.6 D Phosphorus 4.3 D Magnesium 2.0 Troponin I Triglycerides 199 H Cholesterol 146 LDL Cholesterol, Calc 60 VLDL Cholesterol, Calc 40 HDL Cholesterol 46 Cholesterol/HDL Ratio 3 10/05/18 11:01 WBC RBC Hgb Hct MCV MCH MCHC RDW Std Deviation RDW Coeff of Ros Plt Count MPV Immature Gran % (Auto) Neut % (Auto) Lymph % (Auto) Traverse % (Auto) Eos % (Auto) Baso % (Auto) Immature Gran # (Auto) Neut # (Auto) Lymph # (Auto) Traverse # (Auto) Eos # (Auto) Baso # (Auto) Sodium Potassium Chloride Carbon Dioxide Anion Gap BUN Creatinine Est Cr Clr Drug Dosing Est GFR ( Amer) Est GFR (Non-Af Amer) BUN/Creatinine Ratio Glucose POC Glucose 173 H Estimat Average Glucose Hemoglobin A1c Calcium Phosphorus Magnesium Troponin I Triglycerides Cholesterol LDL Cholesterol, Calc VLDL Cholesterol, Calc HDL Cholesterol Cholesterol/HDL Ratio Medications Administered Acetaminophen (Tylenol) 650 mg PO Q4H PRN PRN Reason: Mild Pain (scale 1-3) Stop: 11/03/18 09:44 Last Admin: 10/05/18 14:43 Dose: 650 mg Documented by: [id number] Admin: 10/05/18 08:00 Dose: 650 mg Documented by: [id number] Acyclovir (Zovirax) 400 mg PO QAM [facility] Stop: 11/04/18 08:59 Last Admin: 10/05/18 07:51 Dose: 400 mg Documented by: [id number] Albuterol (Ventolin 0.083% 2.5mg/3ml) 2.5 mg INH BIDR [facility] Stop: 11/03/18 19:59 Last Admin: 10/05/18 07:22 Dose: 2.5 mg Documented by: [id number] Admin: 10/04/18 20:01 Dose: 2.5 mg Documented by: [id number] Aspirin (Ecotrin Ectab) 81 mg PO [facility] Stop: 11/04/18 08:59 Last Admin: 10/05/18 07:52 Dose: 81 mg Documented by: [id number] Azithromycin (Zithromax) 250 mg PO MoWeFr@0900 [facility] Stop: 11/04/18 08:59 Last Admin: 10/05/18 07:51 Dose: 250 mg Documented by: [id number] Calcitriol (Racaltrol) 0.25 mcg PO MoWeFr@0900 [facility] Stop: 11/04/18 08:59 Last Admin: 10/05/18 07:51 Dose: 0.25 mcg Documented by: [id number] Clopidogrel Bisulfate (Plavix) 75 mg PO [facility] Stop: 11/04/18 08:59 Last Admin: 10/05/18 07:52 Dose: 75 mg Documented by: [id number] Furosemide (Lasix) 40 mg PO [facility] Stop: 11/04/18 08:59 Last Admin: 10/05/18 07:52 Dose: 40 mg Documented by: [id number] Tobramycin Sulfate 150 mg/ (Syringe) 3.75 mls @ 0.033 mls/min INH BIDR [facility] Stop: 11/03/18 19:59 Last Admin: 10/05/18 07:23 Dose: 0.033 mls/min Documented by: [id number] Admin: 10/04/18 20:56 Dose: 0.033 mls/min Documented by: [id number] Insulin Aspart (Novolog Flexpen) 0 units SC ACHS [facility] Stop: 11/03/18 11:29 Last Admin: 10/05/18 17:30 Dose: 2 units Documented by: [id number] Cosigned by: [id number] Admin: 10/05/18 12:19 Dose: 2 units Documented by: [id number] Cosigned by: [id number] Admin: 10/05/18 07:45 Dose: Not Given Documented by: [id number] Cosigned by: [id number] Admin: 10/04/18 20:56 Dose: Not Given Documented by: [id number] Cosigned by: [id number] Admin: 10/04/18 17:07 Dose: 2 units Documented by: [id number] Cosigned by: [id number] Admin: 10/04/18 11:38 Dose: Not Given Documented by: [id number] Cosigned by: [id number] Metoprolol Succinate (Toprol Xl) 25 mg PO QAM [facility] Stop: 11/04/18 08:59 Last Admin: 10/05/18 08:54 Dose: 25 mg Documented by: [id number] Miscellaneous (Order Awaiting Action) 1 ea N/A QS [facility] Stop: 11/03/18 15:59 Last Admin: 10/05/18 15:30 Dose: Not Given Documented by: [id number] Admin: 10/05/18 07:45 Dose: Not Given Documented by: [id number] Admin: 10/04/18 22:18 Dose: Not Given Documented by: [id number] Admin: 10/04/18 14:16 Dose: Not Given Documented by: [id number] Montelukast Sodium (Singulair) 10 mg PO PM [facility] Stop: 11/03/18 20:59 Last Admin: 10/04/18 20:52 Dose: 10 mg Documented by: [id number] Mycophenolate Sodium (Myfortic) 360 mg PO BID [facility] Stop: 11/03/18 20:59 Last Admin: 10/05/18 07:51 Dose: 360 mg Documented by: [id number] Admin: 10/04/18 20:49 Dose: 360 mg Documented by: [id number] Pantoprazole Sodium (Protonix) 40 mg PO BID [facility] Stop: 11/03/18 20:59 Last Admin: 10/05/18 07:51 Dose: 40 mg Documented by: [id number] Admin: 10/04/18 20:51 Dose: 40 mg Documented by: [id number] Admin: 10/04/18 15:20 Dose: 40 mg Documented by: [id number] Posaconazole (Noxafil) 3 ea PO [facility] Stop: 11/03/18 20:59 Last Admin: 10/04/18 20:50 Dose: 3 ea Documented by: [id number] Prednisone (Prednisone) 5 mg PO QAM [facility] Stop: 11/04/18 08:59 Last Admin: 10/05/18 07:52 Dose: 5 mg Documented by: [id number] Rosuvastatin Calcium (Crestor) 40 mg PO HS [facility] Stop: 11/03/18 20:59 Last Admin: 10/04/18 20:48 Dose: 40 mg Documented by: [id number] Fluticasone/Salmeterol (Advair Diskus 500/50) 1 puffs INH Q12 [facility] Stop: 11/03/18 10:44 Last Admin: 10/05/18 07:52 Dose: 1 puffs Documented by: [id number] Admin: 10/04/18 20:48 Dose: 1 puffs Documented by: [id number] Admin: 10/04/18 14:35 Dose: 1 puffs Documented by: [id number] Sertraline HCl (Zoloft) 50 mg PO QAM [facility] Stop: 11/04/18 08:59 Last Admin: 10/05/18 07:52 Dose: 50 mg Documented by: [id number] Sodium Bicarbonate (Sodium Bicarbonate) 650 mg PO BID [facility] Stop: 11/03/18 20:59 Last Admin: 10/05/18 07:51 Dose: 650 mg Documented by: [id number] Admin: 10/04/18 20:52 Dose: 650 mg Documented by: [id number] Tacrolimus (Prograf) 0.5 mg PO BID [facility] Stop: 11/03/18 20:59 Last Admin: 10/05/18 07:52 Dose: 0.5 mg Documented by: [id number] Admin: 10/04/18 20:51 Dose: 0.5 mg Documented by: [id number] Vitamin D (Vitamin [facility]3) [facility] [place]: 11/04/18 08:59 Last Admin: 10/05/18 07:51 Dose: 1,000 units Documented by: [id number]
[2018-10-05] MEDS: ALBUTEROL 0.083% NEBU SOLN 3 ML VIAL INH SCH ×2 (07:22→19:13)
[2018-10-05] MEDS: TOBRAMYCIN SULFATE INH SCH ×2 (07:23→21:04)
[2018-10-05 07:32] LABS: Estimated Average Glucose 111 mg/dl; Hemoglobin A1C 5.5 % (4.5-5.6)
[2018-10-05] MEDS: INSULIN ASPART 100 UNITS/ML 3 ML PEN SC SCH ×4 (07:45→20:47)
[2018-10-05] MEDS: MYCOPHENOLATE SODIUM 180 MG TAB PO SCH ×2 (07:51→20:37)
[2018-10-05] MEDS: PANTOprazole 40 MG TAB PO SCH ×2 (07:51→20:42)
[2018-10-05] MEDS: CALCITRIOL 0.25 MCG CAPSULE PO SCH (07:51)
[2018-10-05] MEDS: CHOLECALCIFEROL 1,000 UNITS TAB PO SCH (07:51)
[2018-10-05] MEDS: ACYCLOVIR 400 MG TAB PO SCH (07:51)
[2018-10-05] MEDS: SODIUM BICARBONATE 650 MG TAB PO SCH ×2 (07:51→20:42)
[2018-10-05] MEDS: TACROLIMUS 0.5 MG CAP PO SCH ×2 (07:52→20:40)
[2018-10-05] MEDS: CLOPIDOGREL BISULFATE 75 MG TAB PO SCH (07:52)
[2018-10-05] MEDS: ASPIRIN 81 MG ECTAB PO SCH (07:52)
[2018-10-05] MEDS: predniSONE 5 MG TAB PO SCH (07:52)
[2018-10-05] MEDS: SERTRALINE HCL 50 MG TABLET PO SCH (07:52)
[2018-10-05] MEDS: FUROSEMIDE 40 MG TAB PO SCH (07:52)
[2018-10-05] MEDS: FLUTICASONE/SALMETEROL (ADVAIR) 500/50 INH 14 PUFF INH SCH ×2 (07:52→20:36)
[2018-10-05] MEDS: ACETAMINOPHEN 325 MG TAB PO PRN ×3 (08:00→23:16)
[2018-10-05] MEDS ORDERED: POTASSIUM CHLORIDE 20 MEQ TABCR PO SCH (08:45)
[2018-10-05] MEDS ORDERED: METOPROLOL SUCC 25MG EXT REL TAB PO SCH (09:00)
[2018-10-05] MEDS ORDERED: AZITHROMYCIN 250 MG TAB PO SCH (09:00)
[2018-10-05] MEDS ORDERED: DOXAZosin MESYLATE 4 MG TAB PO SCH ×2 (09:00→21:00)
[2018-10-05] MEDS ORDERED: FLUOXETINE HCL 20 MG CAP PO SCH (09:00)
--- NOTE | 2018-10-05 09:40 | Cardiology Progress Note ---
Date of Service October 05, 2018 Assessment & Plan (1) ST elevation (STEMI) myocardial infarction: pt remains symptom free s/p PCI EKG changes consistent with LAD STEMI evolution trop peaked at 69 concern was raised on interaction of prozac and plavix however, patient has been on combination and previous stents remain patent would be concerned to switch to Brillinta given his hx of GI bleed and drugs increased risk of bleeding as well as the cost of the med cont asa and plavix ok to d/c ICU and transfer to tele (2) CAD (coronary artery disease): previous stents patent (3) Paroxysmal atrial fibrillation: hx of significant GI bleed on triple therapy has remained in sinus cont dual antiplatelet therapy (4) HTN (hypertension): elevated initially but improved with resumption of labetalol in light of significant cardiomyopathy will now change labetalol to metoprolol succinate (5) Ischemic cardiomyopathy: (6) CKD (chronic kidney disease) stage 5, GFR less than 15 ml/min: creat rising follows with [facility] nephrology, will ask to follow along Subjective Review of Systems All systems reviewed & are unremarkable except as noted in HPI & below Pt seen and examined, oob in chair, states that he's feeling well. Denies cp, sob, palpitations, lightheadedness or dizziness. tele reviewed: sinus rhythm, ventricular ectopy initially but resolved with restarting beta cally. Physical Exam Vital Signs (Past 24 Hours): Last Vital Signs Temp 36.7 C 10/05/18 04:01 Pulse 68 10/05/18 07:24 Resp 14 10/05/18 07:24 BP 118/70 10/05/18 04:31 Pulse Ox 99 10/05/18 07:24 Physical Exam: General: Awake, alert and oriented x 3. No acute distress. HEENT: Normocephalic, atraumatic. Pupils equal, round and reactive to light and accommodation. Extraocular muscles are intact. Anicteric sclera. Moist mucous membranes. Neck: No JVD. No bruit. Cardiovascular: Regular. Positive S-4. Normal S-1 and S-2. No S-3. No murmurs or rubs. Pulmonary: Clear to auscultation B/L. No rales, rhonchi or wheezing Abdomen: Bowel sounds x 4, soft. No rebound, guarding or tenderness. No organomegaly. Extremities: No clubbing, cyanosis or edema. +2 pedal pulses bilaterally. Skin: Warm and dry. (1) ST elevation (STEMI) myocardial infarction Involved coronary artery: unspecified coronary artery Qualified Code(s): I21.3 - ST elevation (STEMI) myocardial infarction of unspecified site
--- NOTE | 2018-10-05 10:42 | Hospitalist Progress Note ---
Date of Service October 05, 2018 Assessment & Plan (1) ST elevation (STEMI) myocardial infarction: -admission on 09/24/18 for symptoms complaint of chest pain, left jaw pain, vomiting and diaphoresis and found to have ST Elevation myocardial infarction and patient was taken emergently to the [facility] and on cardiac cath was found to have Anterior STEMI/subtotal occlusion of mid LAD just after prior stent; Moderate non-culprit coronary artery disease (50% ostial RCA) and had PCI of mid LAD with single drug-eluting stent (3.0 x 15 mm Onyxoverlapped with distal aspect of prior stent) -patient received loading with clopidogrel 600 mg on 10/04/18 and recommended to continue clopidogrel 75 mg daily and aspirin 81 mg daily -due to concern for potential drug interactions with clopidogrel and home medication of fluoxetine 40 mg daily, the anti-depressant was switched to Zoloft (sertraline) 50 mg daily -continue aspirin and clopidogrel, cardiology service have switched patient's home dose labetalol to metoprolol succinate -continue statin (2) CAD (coronary artery disease): History of Coronary artery disease Ischemic cardiomyopathy -S/P MITCHELL to LAD and circumflex in 05/2018 -this hospital admission for ST elevation myocardial infarction with drug eluting stent to mid LAD, management as above -EF 30 to 35% (3) Elevated temperature: Initial temperature in ER 37.8C Reported that patient was diaphoretic with chest pain likely from myocardial infarction no signs of infection at this time and currently normal body temperatures (4) Paroxysmal atrial fibrillation: -Off anticoagulation secondary to reported bleeding and anemia in the past -10/04/18 to 10/05/18 sinus rhythm, ventricular ectopy initially but resolved with restarting beta cally -continue metoprolol as started by cardiology service (5) Hyperglycemia: History of hyperglycemia secondary to chronic steroid use HbA1c: 5.5 -Hold home humalog sliding scale -Novolog sliding scale per protocol -glucose controlled (6) HTN (hypertension): Essential Hypertension Blood pressure controlled -continue beta cally -continue home dose doxasozin 8 mg (7) CKD (chronic kidney disease) stage 5, GFR less than 15 ml/min: AV fistula in place. Not on HD yet. Follows with Dr Sterling Baseline 2.4-3.2 -Monitor renal functions -creatinine on 10/05/18 is 2.93 (8) Idiopathic pulmonary fibrosis: -history of lung transplant; S/P L lung transplant at [facility] in 2013. [address] Rodriguez at [facility] -Continue myfortic, tacrolimus, Advair, singulair, albuterol, inhaled tobramycin, prednisone, Bactrim, acyclovir, posaconazole, azithromycin (9) Lung transplant status: -history of lung transplant; S/P L lung transplant at [facility] in 2012. [address] Rodriguez at [facility] (10) Hypomagnesemia: Chronic Magnesium: 2 -continue magnesium supplement (11) GERD (gastroesophageal reflux disease): -continue PPI (12) HLD (hyperlipidemia): Lipid panel on 07/25/18: total: 133, HDL: 54, LDL: 56, Triglycerides: 113 -Continue statin (13) Mood disorder: -due to concern for potential drug interactions with clopidogrel and home medication of fluoxetine 40 mg daily, the anti-depressant was switched to Zoloft (sertraline) 50 mg daily (14) Chronic anemia: Baseline Hgb is 9 to 10 monitor H&H (15) Thrombocytopenia: Chronic Baseline ~140s DVT Prophylaxis -SCDs Full Code Subjective Patient seen and examined in the intensive care unit. Patient awake and alert and comfortable. denies chest pain. denies shortness of breath. breathing on room air. denies abdominal pain. no vomiting Physical Exam Vital Signs (Past 24 Hours): Last Vital Signs Temp 36.7 C 10/05/18 04:01 Pulse 68 10/05/18 07:24 Resp 14 10/05/18 07:24 BP 118/70 10/05/18 04:31 Pulse Ox 99 10/05/18 07:24 Constitutional: WD/WN, vitals as above Eyes: PERRL, conjunctivae normal, anicteric sclerae EOM intact bilaterally ENMT: external ear and nose normal, oropharynx normal Neck: normal visual inspection Respiratory: normal respiratory effort, lungs clear to auscultation Cardiovascular: Rate/Rhythm: regular rate and regular rhythm Gastrointestinal (Abdomen): normal bowel sounds, soft, nontender, no hepatosplenomegaly Musculoskeletal: Head/Neck/Chest: normocephalic and head atraumatic Skin: right groin cath site with dressing intact Neurologic: PERRL, EOMI, accommodation nl, no face palsy, no dysarthria CN's II-XI intact bilaterally Psychiatric: A+Ox3, euthymic affect (1) ST elevation (STEMI) myocardial infarction Involved coronary artery: unspecified coronary artery Qualified Code(s): I21.3 - ST elevation (STEMI) myocardial infarction of unspecified site
--- NOTE | 2018-10-05 12:25 | Nephrology Consultation ---
Date of Consultation October 05, 2018 Assessment & Plan (1) CKD (chronic kidney disease) stage 5, GFR less than 15 ml/min: -- Creatinine has increased since admission but remains within baseline range -- Volume status appears euvolemic -- Blood pressure is controlled -- Metabolic profile is otherwise acceptable -- Medications are appropriate for kidney function (no change in Prograf dosing) -- AVF is mature for use -- There is no emergent indication for ASE MASTER MECHANIC -- I/O's will be documented -- UA will be repeated -- No additional evaluation at this time -- Will monitor metabolic profile daily and continue to follow (2) ST elevation (STEMI) myocardial infarction: -- POD# 1 s/p PCI -- Symptoms resolved -- Medications appropriate for kidney function, labetalol switched to metoprolol and currently on dual antiplatelet therapy (3) CAD (coronary artery disease): -- Volume status acceptable -- No signs of decompensated CHF (4) Paroxysmal atrial fibrillation: -- Off anticoagulation secondary to reported bleeding and anemia in the past (5) HTN (hypertension): -- Treated with doxazosin and beta-cally therapy (6) Idiopathic pulmonary fibrosis: (7) Lung transplant status: -history of lung transplant; 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 Follow[address] with [address] Rodriguez at [facility] (8) Chronic anemia: -- Hgb stable -- No need for additional FELICIANO therapy at this time -- Will check iron profile with AM labs History of Present Illness Reason for Consultation: ADEEL/CKD Requesting Physician: Ángel Brown MD Attending Physician: Ángel Brown MD History of Present Illness Mr. Shaun Bill is a 77-year-old male with CKD IV-V. He follows in the nephrology clinic with Dr. Sterling. Shaun was seen in the clinic as recently as July 2018. Baseline creatinine has been 2.5-3.0 mg/dL. Metabolic profile has been acceptable. The patient has a well developed AVF which was placed by Dr. Oconnell in May 2017. He has not required dialysis. 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 Thankfully, he has done well with medical management. CKD has been attributed to a history of ATN as well as microvascular disease and calcineurin inhibitor nephropathy. Complications of his chronic kidney disease including anemia requiring FELICIANO therapy, as well as secondary parathyroidism. Medical history is notable for IPF. 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 He has a right eklutna lung. Immunotherapy includes MMF, prograf, and prednisone. Post transplant complications include recurrent pneumonia. 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 Shaun also has diabetes mellitus (no retinopathy or neuropathy), hypertension, a history of C diff colitis, facial SCC, as well as coronary artery disease. In April, he underwent PCI with MITCHELL placement to LAD and circumflex. Shaun presented to [facility] with a STEMI. HE underwent emergent catheterization without complications on October 04. PCI with MITCHELL to proximal LAD was performed. He is recovering in the ICU. Blood pressure has been acceptable. Overall, he feels well. Urine output is appropriate. Serum creatinine monet on admission from 2.5 to 2.9 mg/dL. Metabolic profile was notable for some hypercalcemia on calcitriol. Metabolic profile has been otherwise appropriate. Urine output is normal. UA demonstrated proteinuria and some RBC's. There were no WBC's or casts. Fluid balance is +800 ml for the admission. Allergies Allergy/AdvReac Type Severity Reaction Status Date / Time levofloxacin Allergy Intermediate ANAPHYLAXIS Verified 10/03/18 11:27 oxycodone Allergy Intermediate ANAPHYLAXIS Verified 10/03/18 11:27 cat dander Allergy Unknown CHEST Verified 10/03/18 11:27 TIGHTNESS Home Medications Home Medications Medication Instructions Recorded Confirmed Type Bethkis 150 mg INHALATION Q12H 05/09/18 10/04/18 History Noxafil 300 mg PO HS 05/09/18 10/04/18 History acetaminophen [Tylenol Extra 500 mg PO Q6H PRN 05/09/18 10/04/18 History Strength] acyclovir 400 mg PO QAM 05/09/18 10/04/18 History albuterol sulfate 2.5 mg INHALATION BID 05/09/18 10/04/18 History aspirin 81 mg PO QAM 05/09/18 10/04/18 History azithromycin [Zithromax] 250 mg PO 3XWK 05/09/18 10/04/18 History calcitriol 0.25 mcg PO 3XWK 05/09/18 10/04/18 History cholecalciferol (vitamin D3) 1,000 unit PO QAM 05/09/18 10/04/18 History darbepoetin nicholas in polysorbat 1.01 ml SUBCUT WK 05/09/18 10/04/18 History doxazosin 8 mg PO QAM 05/09/18 10/04/18 History fluticasone propion-salmeterol 1 inh INHALATION Q12H 05/09/18 10/04/18 History [Advair Diskus] furosemide [Lasix] 40 mg PO QAM 05/09/18 10/04/18 History labetalol 100 mg PO BID 05/09/18 10/04/18 History montelukast [Singulair] 10 mg PO PM 05/09/18 10/04/18 History mycophenolate sodium [Myfortic] 360 mg PO BID 05/09/18 10/04/18 History omega-3 acid ethyl esters [Lovaza] 2 cap PO BID 05/09/18 10/04/18 History pantoprazole [Protonix] 40 mg PO BID 05/09/18 10/04/18 History prednisone 5 mg PO QAM 05/09/18 10/04/18 History rosuvastatin [Crestor] 40 mg PO HS 05/09/18 10/04/18 History sodium bicarbonate 650 mg PO BID 05/09/18 10/04/18 History sulfamethoxazole-trimethoprim 1 tab PO 2XWK 05/09/18 10/04/18 History [Bactrim] tacrolimus [Prograf] 0.5 mg PO BID 05/09/18 10/04/18 History clopidogrel 75 mg PO QAM 07/21/18 10/04/18 History ondansetron 4 mg disintegrating 4 mg PO TID PRN 08/10/18 10/04/18 History tablet insulin lispro (U- 100) 100 12 unit SUBCUT UD 10/03/18 10/04/18 History unit/mL subcutaneous pen fluoxetine 40 mg PO DAILY 10/04/18 10/04/18 History Patient History Medical History Hyperglycemia (Chronic) Paroxysmal atrial fibrillation (Chronic) Idiopathic pulmonary fibrosis (Chronic) 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 GI CONCERNED AND FEELS SCOPE IS NECESSARY Surgical History S/P patent foramen ovale closure (Resolved) Lung transplant status (Chronic) Hx of heart artery stent (Chronic) S/P MITCHELL to LAD and circumflex after NSTEMI in 05/2018 History of cardiac cath STENTS X2 MAY 2018 (SEE [facility] [place]ORD ) Family History Father , in his seventies of cancer No problems noted. Mother , age 88 of CHF No problems noted. Daughter Age: 45 No problems noted. Son Age: 44 No problems noted. Other No significant family history Social History well-balanced diet: daily or most days caffeine: Yes (1 cup in am) Smoking Status: Current every day smoker second hand exposure: No substance use type: does not use Physical Exam Vital Signs (Past 24 Hours): Last Vital Signs Temp 36.7 C 10/05/18 04:01 Pulse 72 10/05/18 11:30 Resp 16 10/05/18 11:30 BP 122/55 L 10/05/18 11:21 Pulse Ox 99 10/05/18 11:01 Constitutional: well developed and + thin; no acute distress and not ill appearing Eyes: no scleral abnormality and no corneal abnormality ENMT: Mouth: no oral mucosal abnormality and oral mucous membranes not dry Neck: normal visual inspection and trachea midline Respiratory: normal respiratory effort Auscultation: lungs clear to auscultation bilaterally; no rales Cardiovascular: Rate/Rhythm: regular rate Heart Sounds: normal S1 and normal S2; no murmur and no cardiac rub Extremities: + AV fistula; no edema Gastrointestinal (Abdomen): Percussion/Palpation: abdomen soft; abdomen nontender Musculoskeletal: Extremities: no cyanosis, no clubbing and no petechiae Skin: normal turgor; no rashes Neurologic: Motor/Sensory: no tremor and no asterixis Psychiatric: Orientation: alert Affect: euthymic affect Results & Data Laboratory Results Laboratory Results - last 24 hr 10/04/18 10/04/18 10/04/18 15:50 16:41 17:35 WBC RBC Hgb Hct MCV MCH MCHC RDW Std Deviation RDW Coeff of Ros Plt Count MPV Immature Gran % (Auto) Neut % (Auto) Lymph % (Auto) [place] % (Auto) Eos % (Auto) Baso % (Auto) Immature Gran # (Auto) Neut # (Auto) Lymph # (Auto) [place] # (Auto) Eos # (Auto) Baso # (Auto) Sodium Potassium Chloride Carbon Dioxide Anion Gap BUN Creatinine Est Cr Clr Drug Dosing Est GFR ( Amer) Est GFR (Non-Af Amer) BUN/Creatinine Ratio Glucose POC Glucose 152 H Estimat Average Glucose Hemoglobin A1c Calcium Phosphorus Magnesium Troponin I 69.800 H* Triglycerides Cholesterol LDL Cholesterol, Calc VLDL Cholesterol, Calc HDL Cholesterol Cholesterol/HDL Ratio Urine Color Yellow Urine Appearance Clear Urine pH 5.0 Ur Specific [place] > 1.045 H Urine Protein 4+ H Urine Glucose (UA) Negative Urine Ketones Negative Urine Blood 3+ H Urine Nitrite Negative Urine Bilirubin Negative Urine Urobilinogen Negative Ur Leukocyte Esterase Negative Urine WBC (Auto) 1-5 Urine RBC (Auto) 5-10 H U Hyaline Cast (Auto) 5-10 H U Epithel Cells (Auto) >30 H Urine Bacteria (Auto) Negative 10/04/18 10/04/18 10/05/18 20:55 21:29 04:11 WBC 5.71 RBC 2.96 L Hgb 10.2 L Hct 31.1 L MCV 105.1 H MCH 34.5 H MCHC 32.8 RDW Std Deviation 54.3 H RDW Coeff of Ros 14.3 Plt Count 144 MPV 11.0 H Immature Gran % (Auto) 0.2 Neut % (Auto) 70.8 Lymph % (Auto) 7.5 [place] % (Auto) 18.4 Eos % (Auto) 2.6 Baso % (Auto) 0.5 Immature Gran # (Auto) 0.01 Neut # (Auto) 4.04 Lymph # (Auto) 0.43 L [place] # (Auto) 1.05 H Eos # (Auto) 0.15 Baso # (Auto) 0.03 Sodium Potassium Chloride Carbon Dioxide Anion Gap BUN Creatinine Est Cr Clr Drug Dosing Est GFR ( Amer) Est GFR (Non-Af Amer) BUN/Creatinine Ratio Glucose POC Glucose 117 H Estimat Average Glucose Hemoglobin A1c Calcium Phosphorus Magnesium Troponin I 63.800 H* Triglycerides Cholesterol LDL Cholesterol, Calc VLDL Cholesterol, Calc HDL Cholesterol Cholesterol/HDL Ratio Urine Color Urine Appearance Urine pH Ur Specific [place] Urine Protein Urine Glucose (UA) Urine Ketones Urine Blood Urine Nitrite Urine Bilirubin Urine Urobilinogen Ur Leukocyte Esterase Urine WBC (Auto) Urine RBC (Auto) U Hyaline Cast (Auto) U Epithel Cells (Auto) Urine Bacteria (Auto) 10/05/18 10/05/18 10/05/18 04:11 04:11 07:31 WBC RBC Hgb Hct MCV MCH MCHC RDW Std Deviation RDW Coeff of Ros Plt Count MPV Immature Gran % (Auto) Neut % (Auto) Lymph % (Auto) [place] % (Auto) Eos % (Auto) Baso % (Auto) Immature Gran # (Auto) Neut # (Auto) Lymph # (Auto) [place] # (Auto) Eos # (Auto) Baso # (Auto) Sodium 139 Potassium 3.8 Chloride 107 Carbon Dioxide 24 Anion Gap 8.0 BUN 35 H Creatinine 2.93 H D Est Cr Clr Drug Dosing 22.8 Est GFR ( Amer) 23.0 Est GFR (Non-Af Amer) 19.8 BUN/Creatinine Ratio 11.8 Glucose 118 H POC Glucose 126 H Estimat Average Glucose 111 Hemoglobin A1c 5.5 Calcium 8.6 D Phosphorus 4.3 D Magnesium 2.0 Troponin I Triglycerides 199 H Cholesterol 146 LDL Cholesterol, Calc 60 VLDL Cholesterol, Calc 40 HDL Cholesterol 46 Cholesterol/HDL Ratio 3 Urine Color Urine Appearance Urine pH Ur Specific [place] Urine Protein Urine Glucose (UA) Urine Ketones Urine Blood Urine Nitrite Urine Bilirubin Urine Urobilinogen Ur Leukocyte Esterase Urine WBC (Auto) Urine RBC (Auto) U Hyaline Cast (Auto) U Epithel Cells (Auto) Urine Bacteria (Auto) 10/05/18 11:01 WBC RBC Hgb Hct MCV MCH MCHC RDW Std Deviation RDW Coeff of Ros Plt Count MPV Immature Gran % (Auto) Neut % (Auto) Lymph % (Auto) [place] % (Auto) Eos % (Auto) Baso % (Auto) Immature Gran # (Auto) Neut # (Auto) Lymph # (Auto) [place] # (Auto) Eos # (Auto) Baso # (Auto) Sodium Potassium Chloride Carbon Dioxide Anion Gap BUN Creatinine Est Cr Clr Drug Dosing Est GFR ( Amer) Est GFR (Non-Af Amer) BUN/Creatinine Ratio Glucose POC Glucose 173 H Estimat Average Glucose Hemoglobin A1c Calcium Phosphorus Magnesium Troponin I Triglycerides Cholesterol LDL Cholesterol, Calc VLDL Cholesterol, Calc HDL Cholesterol Cholesterol/HDL Ratio Urine Color Urine Appearance Urine pH Ur Specific [place] Urine Protein Urine Glucose (UA) Urine Ketones Urine Blood Urine Nitrite Urine Bilirubin Urine Urobilinogen Ur Leukocyte Esterase Urine WBC (Auto) Urine RBC (Auto) U Hyaline Cast (Auto) U Epithel Cells (Auto) Urine Bacteria (Auto) (1) ST elevation (STEMI) myocardial infarction Involved coronary artery: unspecified coronary artery Qualified Code(s): I21.3 - ST elevation (STEMI) myocardial infarction of unspecified site
[2018-10-05] MEDS ORDERED: SODIUM CHLORIDE 0.9% 1000ML 250 ML IV ONE (14:48)
[2018-10-05] MEDS: ROSUVASTATIN CALCIUM 20 MG TAB PO SCH (20:38)
[2018-10-05] MEDS: POSACONAZOLE 100 MG PO SCH (20:39)
[2018-10-05] MEDS: MONTELUKAST SODIUM 10 MG TABLET PO SCH (20:41)
[2018-10-06] MEDS ORDERED: POTASSIUM CHLORIDE 20 MEQ TABCR PO STA (00:22)
[2018-10-06] MEDS ORDERED: MAGNESIUM SULFATE / D5W 1 GM/100 ML BAG IV ONE ×2 (00:22→01:10)
--- NOTE | 2018-10-06 00:33 | Hospitalist Progress Note ---
Date of Service October 06, 2018 Subjective Made aware by RN of transient wide-complex rhythm on telemetry strip, possible torsades as per RN. Patient asymptomatic as per RN EKG showed QTC greater than 600 AP Wide-complex tachycardia Prolonged QT A.m. beta-cally now Magnesium 2 g IV now check electrolytes Hold maintenance Azithromycin (antibacterial prophylaxis for lung transplant immunosuppression regimen) Consider Doxycycline replacement pending discussion with patient's [facility] transplant specialists. Would relay to AM provider. Results & Data Vital Signs (Past 12 Hours) Vital Signs Temp Pulse Pulse Pulse Resp BP Pulse Ox 10/06/18 00:24 36.8 C 77 19 143/71 H 97 10/06/18 00:03 36.4 C L 80 20 140/70 98 10/05/18 19:31 36.6 C 92 H 18 128/72 94 10/05/18 19:16 71 16 97 10/05/18 15:51 36.4 C L 71 20 130/71 100 10/05/18 15:15 68 10/05/18 14:24 99 10/05/18 12:38 36.3 C L 73 20 127/74 97
[2018-10-06 00:42] LABS: Eosinophils # (auto) 0.06 K/uL (0-0.5); Eosinophils % (auto) 1.1 %; Hematocrit (blood only) 29.2 % (42-52); Hemoglobin 9.6 g/dL (14.0-18.0); Immature Granulocytes # (auto) 0.01 K/uL (0.00-0.02); Immature Granulocytes % (auto) 0.2 %; Lymphocytes # (auto) 0.63 K/uL (1.2-3.4); Lymphocytes % (auto) 11.4 %; Mean Corpuscular Hgb Conc 32.9 g/dL (32-36); Mean Corpuscular Volume 103.5 fL (80-100); Mean Platelet Volume 10.8 fL (7.4-10.4); Monocytes # (auto) 0.47 K/uL (0.11-0.59); Monocytes % (auto) 8.5 %; Neutrophils # (auto) 4.34 K/uL (1.4-6.5); Neutrophils % (auto) 78.8 %; Platelet Count 134 K/uL (130-400); RDW Coefficient of Variation 14.1 % (11.5-14.5); RDW Standard Deviation 53.3 fL (36.4-46.3); Red Blood Count 2.82 M/uL (4.7-6.1); White Blood Count 5.51 K/uL (4.8-10.8)
[2018-10-06] MEDS: METOPROLOL SUCC 25MG EXT REL TAB PO SCH ×3 (00:53→20:35)
[2018-10-06 01:01] LABS: BUN Creatinine Ratio 13.4 (10-20); Calcium 8.3 mg/dl (8.5-10.1); Creatinine Clr Calc Pharmacy 21.4 ml/min; Est GFR (African American) 21.2; Est GFR (Non-African American) 18.3; Magnesium 1.8 mg/dl (1.8-2.4)
[2018-10-06 01:07] LABS: Phosphorus 2.9 mg/dl (2.5-4.9)
[2018-10-06] MEDS: TOBRAMYCIN SULFATE INH SCH ×2 (07:04→19:56)
[2018-10-06 08:02] LABS: BUN Creatinine Ratio 12.1 (10-20); Calcium 8.8 mg/dl (8.5-10.1); Creatinine Clr Calc Pharmacy 20.6 ml/min; Est GFR (African American) 20.3; Est GFR (Non-African American) 17.5; Magnesium 2.6 mg/dl (1.8-2.4); Potassium 4.3 mmol/L (3.5-5.1)
[2018-10-06] MEDS: ACETAMINOPHEN 325 MG TAB PO PRN ×3 (08:18→20:43)
[2018-10-06] MEDS: CHOLECALCIFEROL 1,000 UNITS TAB PO SCH (08:18)
[2018-10-06] MEDS: CLOPIDOGREL BISULFATE 75 MG TAB PO SCH (08:18)
[2018-10-06] MEDS: FLUTICASONE/SALMETEROL (ADVAIR) 500/50 INH 14 PUFF INH SCH ×2 (08:19→20:36)
[2018-10-06] MEDS: SERTRALINE HCL 50 MG TABLET PO SCH (08:19)
[2018-10-06] MEDS: FUROSEMIDE 40 MG TAB PO SCH (08:19)
[2018-10-06] MEDS: ACYCLOVIR 400 MG TAB PO SCH (08:19)
[2018-10-06] MEDS: SULFA/TRIMETH 400/80MG TAB PO SCH (08:19)
[2018-10-06] MEDS: SODIUM BICARBONATE 650 MG TAB PO SCH ×2 (08:19→20:35)
[2018-10-06] MEDS: MYCOPHENOLATE SODIUM 180 MG TAB PO SCH ×2 (08:19→20:35)
[2018-10-06] MEDS: TACROLIMUS 0.5 MG CAP PO SCH ×2 (08:19→20:37)
[2018-10-06] MEDS: ASPIRIN 81 MG ECTAB PO SCH (08:19)
[2018-10-06] MEDS: PANTOprazole 40 MG TAB PO SCH ×2 (08:20→20:35)
[2018-10-06] MEDS: predniSONE 5 MG TAB PO SCH (08:20)
[2018-10-06] MEDS: INSULIN ASPART 100 UNITS/ML 3 ML PEN SC SCH ×4 (08:25→21:13)
--- NOTE | 2018-10-06 10:22 | Nephrology Progress Note ---
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 -- I/O's will be documented -- Will monitor metabolic profile daily and continue to follow (2) ST elevation (STEMI) myocardial infarction: -- POD# 2 s/p PCI -- Symptoms resolved -- Medications appropriate for kidney function, labetalol switched to metoprolol and currently on dual antiplatelet therapy (3) CAD (coronary artery disease): -- Volume status acceptable -- No signs of decompensated CHF (4) Paroxysmal atrial fibrillation: -- Off anticoagulation secondary to reported bleeding and anemia in the past (5) HTN (hypertension): -- Treated with doxazosin and beta-cally therapy (6) Idiopathic pulmonary fibrosis: (7) Lung transplant status: -- History of lung transplant; S/P L lung transplant at [facility] in 2012. Follow[address] Rodriguez at [facility] (8) Chronic anemia: -- Hgb stable -- No need for additional FELICIANO therapy at this time -- Will check iron profile with AM labs Subjective Wide complex tachycardia noted on monitor overnight. Shaun states that he was asymptomatic. He denies chest pain or palpitations. He denies shortness of breath. QTc noted to be prolonged. Azithromycin held. 2 gm IV magnesium provided. Shaun feels well this morning. Review of Systems Review of Systems: All systems reviewed & are unremarkable except as noted in HPI & below Physical Exam Constitutional: well developed and + thin; no acute distress and not ill appearing Eyes: no scleral abnormality and no corneal abnormality ENMT: Mouth: no oral mucosal abnormality and oral mucous membranes not dry Neck: normal visual inspection and trachea midline Respiratory: normal respiratory effort Auscultation: lungs clear to auscultation bilaterally; no rales Cardiovascular: Rate/Rhythm: regular rate Heart Sounds: normal S1 and normal S2; no murmur and no cardiac rub Extremities: + AV fistula; no edema Gastrointestinal (Abdomen): Percussion/Palpation: abdomen soft; abdomen nontender Musculoskeletal: Extremities: no cyanosis, no clubbing and no petechiae Skin: normal turgor; no rashes Neurologic: Motor/Sensory: no tremor and no asterixis Psychiatric: Orientation: alert Affect: euthymic affect Results & Data Vital Signs (Past 12 Hours) Vital Signs Temp Pulse Pulse Resp BP Pulse Ox 10/06/18 07:27 36.4 C L 72 16 144/69 H 98 10/06/18 07:05 84 18 95 10/06/18 03:50 36.4 C L 97 H 18 134/72 99 10/06/18 00:24 36.8 C 77 19 143/71 H 97 10/06/18 00:03 36.4 C L 80 20 140/70 98 Laboratory Results Laboratory Results - last 24 hr 10/05/18 10/05/18 10/05/18 11:01 16:40 20:30 WBC RBC Hgb Hct MCV MCH MCHC RDW Std Deviation RDW Coeff of Ros Plt Count MPV Immature Gran % (Auto) Neut % (Auto) Lymph % (Auto) [place] % (Auto) Eos % (Auto) Baso % (Auto) Immature Gran # (Auto) Neut # (Auto) Lymph # (Auto) [place] # (Auto) Eos # (Auto) Baso # (Auto) Sodium Potassium Chloride Carbon Dioxide Anion Gap BUN Creatinine Est Cr Clr Drug Dosing Est GFR ( Amer) Est GFR (Non-Af Amer) BUN/Creatinine Ratio Glucose POC Glucose 173 H 136 H 197 H Calcium Phosphorus Magnesium 10/06/18 10/06/18 10/06/18 00:27 00:27 07:24 WBC 5.51 RBC 2.82 L Hgb 9.6 L Hct 29.2 L MCV 103.5 H MCH 34.0 MCHC 32.9 RDW Std Deviation 53.3 H RDW Coeff of Ros 14.1 Plt Count 134 MPV 10.8 H Immature Gran % (Auto) 0.2 Neut % (Auto) 78.8 Lymph % (Auto) 11.4 [place] % (Auto) 8.5 Eos % (Auto) 1.1 Baso % (Auto) 0.0 Immature Gran # (Auto) 0.01 Neut # (Auto) 4.34 Lymph # (Auto) 0.63 L [place] # (Auto) 0.47 Eos # (Auto) 0.06 Baso # (Auto) 0.00 Sodium 139 Potassium 4.0 Chloride 108 H Carbon Dioxide 23 Anion Gap 8.0 BUN 42 H Creatinine 3.13 H Est Cr Clr Drug Dosing 21.4 Est GFR ( Amer) 21.2 Est GFR (Non-Af Amer) 18.3 BUN/Creatinine Ratio 13.4 Glucose 133 H POC Glucose 122 H Calcium 8.3 L Phosphorus 2.9 D Magnesium 1.8 10/06/18 07:35 WBC RBC Hgb Hct MCV MCH MCHC RDW Std Deviation RDW Coeff of Ros Plt Count MPV Immature Gran % (Auto) Neut % (Auto) Lymph % (Auto) [place] % (Auto) Eos % (Auto) Baso % (Auto) Immature Gran # (Auto) Neut # (Auto) Lymph # (Auto) [place] # (Auto) Eos # (Auto) Baso # (Auto) Sodium 141 Potassium 4.3 Chloride 110 H Carbon Dioxide 21 Anion Gap 10.0 BUN 39 H Creatinine 3.25 H Est Cr Clr Drug Dosing 20.6 Est GFR ( Amer) 20.3 Est GFR (Non-Af Amer) 17.5 BUN/Creatinine Ratio 12.1 Glucose 116 H POC Glucose Calcium 8.8 Phosphorus Magnesium 2.6 H (1) ST elevation (STEMI) myocardial infarction Involved coronary artery: unspecified coronary artery Qualified Code(s): I21.3 - ST elevation (STEMI) myocardial infarction of unspecified site
--- NOTE | 2018-10-06 10:29 | Ultrasound Report ---
RENAL ULTRASOUND HISTORY: Acute kidney injury. COMPARISON: Renal ultrasound 03/16/2017. FINDINGS: Right kidney: 9.7 cm. No hydronephrosis. Moderate cortical thinning which has progressed. Normal jh icomedullary differentiation. Left kidney: 9.6 cm. No hydronephrosis. Moderate cortical thinning is again noted. There is a 2.4 x 2 .3 x 1.9 cm exophytic lesion which does not represent a simple cyst. This contains internal echoes an d possible calcification. Bladder: No bladder wall thickening. The bilateral ureteral jets were identified. IMPRESSION: 1. There is a 2.4 x 2.3 x 1.9 cm complex exophytic lesion within the left kidney. This was not descri bed on the prior studies and could represent a renal mass. Dedicated renal CT or renal MRI is recomme nded for further evaluation. 2. No hydronephrosis. 3. Moderate cortical renal thinning. 4. These findings were called/faxed to the referring physician's office following dictation. Electronically signed by: Alexandro Frye M.D. 10/06/2018 10:28 AM
--- NOTE | 2018-10-06 11:00 | Cardiology Progress Note ---
Date of Service October 06, 2018 Assessment & Plan (1) ST elevation (STEMI) myocardial infarction: pt remains symptom free s/p PCI EKG changes consistent with LAD STEMI evolution trop peaked at 69 concern was raised on interaction of prozac and plavix however, patient has been on combination and previous stents remain patent would be concerned to switch to Brillinta given his hx of GI bleed and drugs increased risk of bleeding as well as the cost of the med cont asa and plavix asymptomatic, sustained ventricular tachycardia last PM no further episodes after given magnesium and metoprolol obviously, this is a concern with LAD STEMI and resultant reduced EF no role for ICD given timeline unable to provide antiarrhythmics give QT prolongation my office will arrange for [employer] rep to fit patient will increase metoprolol to 25mg bid cont to monitor on tele (2) CAD (coronary artery disease): previous stents patent (3) Paroxysmal atrial fibrillation: hx of significant GI bleed on triple therapy has remained in sinus cont dual antiplatelet therapy (4) HTN (hypertension): elevated initially but improved with resumption of labetalol in light of significant cardiomyopathy will now change labetalol to metoprolol succinate (5) Ischemic cardiomyopathy: (6) CKD (chronic kidney disease) stage 5, GFR less than 15 ml/min: creat rising nephrology following Subjective Pt seen and examined, events of overnight reviewed. Pt states that he feels well. No complaints overnight. Denies cp, sob, palpitations, lightheadedness or dizziness. tele reviewed: sinus rhythm with run of NSVT (questionable Torsades pattern) at 0009 Review of Systems Review of Systems: All systems reviewed & are unremarkable except as noted in HPI & below Physical Exam Physical Exam: General: Awake, alert and oriented x 3. No acute distress. HEENT: Normocephalic, atraumatic. Pupils equal, round and reactive to light and accommodation. Extraocular muscles are intact. Anicteric sclera. Moist mucous membranes. Neck: No JVD. No bruit. Cardiovascular: Regular. Positive S-4. Normal S-1 and S-2. No S-3. No murmurs or rubs. Pulmonary: Clear to auscultation B/L. No rales, rhonchi or wheezing Abdomen: Bowel sounds x 4, soft. No rebound, guarding or tenderness. No organomegaly. Extremities: No clubbing, cyanosis or edema. +2 pedal pulses bilaterally. Skin: Warm and dry. Results & Data Vital Signs (Past 12 Hours) Vital Signs Temp Pulse Pulse Resp BP Pulse Ox 10/06/18 07:27 36.4 C L 72 16 144/69 H 98 10/06/18 07:05 84 18 95 10/06/18 03:50 36.4 C L 97 H 18 134/72 99 10/06/18 00:24 36.8 C 77 19 143/71 H 97 10/06/18 00:03 36.4 C L 80 20 140/70 98 (1) ST elevation (STEMI) myocardial infarction Involved coronary artery: unspecified coronary artery Qualified Code(s): I21.3 - ST elevation (STEMI) myocardial infarction of unspecified site
[2018-10-06] MEDS: LEVALBUTEROL TARTRATE 15 GM HFA.AER.AD INH SCH ×2 (12:19→20:36)
--- NOTE | 2018-10-06 16:21 | Hospitalist Progress Note ---
Date of Service October 06, 2018 Assessment & Plan (1) ST elevation (STEMI) myocardial infarction: -admission on 09/24/18 for symptoms complaint of chest pain, left jaw pain, vomiting and diaphoresis and found to have ST Elevation myocardial infarction and patient was taken emergently to the [facility] and on cardiac cath was found to have Anterior STEMI/subtotal occlusion of mid LAD just after prior stent; Moderate non-culprit coronary artery disease (50% ostial RCA) and had PCI of mid LAD with single drug-eluting stent (3.0 x 15 mm Onyxoverlapped with distal aspect of prior stent) -patient received loading with clopidogrel 600 mg on 10/04/18 and recommended to continue clopidogrel 75 mg daily and aspirin 81 mg daily -due to concern for potential drug interactions with clopidogrel and home medication of fluoxetine 40 mg daily, the anti-depressant was switched to Zoloft (sertraline) daily on this admission -continue aspirin and clopidogrel, continue metoprolol succinate 25 mg BID -continue statin (2) CAD (coronary artery disease): History of Coronary artery disease Ischemic cardiomyopathy -S/P MITCHELL to LAD and circumflex in 05/2018 -this hospital admission for ST elevation myocardial infarction with drug eluting stent to mid LAD, management as above -EF 30 to 35% (3) Elevated temperature: Initial temperature in ER 37.8C Reported that patient was diaphoretic with chest pain likely from myocardial infarction no signs of infection at this time and currently normal body temperatures (4) Paroxysmal atrial fibrillation: Paroxysmal atrial fibrillation Nonsustained ventricular tachycardia/Prolonged QTC on EKG -Off anticoagulation secondary to reported bleeding and anemia in the past -continue metoprolol as started by cardiology service -concern for nonsustained ventricular tachycardia overnight between 10/05/18 to 10/06/18 and because of prolonged QTC, azithromycin stopped, will also lower the dose of Zoloft (sertraline) from 50 mg to 25 mg starting on 10/07/18 -will monitor QTC daily for now (5) Hyperglycemia: History of hyperglycemia secondary to chronic steroid use HbA1c: 5.5 -Hold home humalog sliding scale -Novolog sliding scale per protocol -glucose controlled (6) HTN (hypertension): Essential Hypertension Blood pressure controlled -continue beta cally -continue home dose doxasozin 8 mg (7) CKD (chronic kidney disease) stage 5, GFR less than 15 ml/min: AV fistula in place. Not on HD yet. 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 Follow[address] Rodriguez at [facility] -Continue myfortic, tacrolimus, Advair, singulair, albuterol,prednisone, Bactrim, acyclovir, posaconazole, inhaled tobramycin is nonformulary and patient can use if brought from home -holding off azithromycin for now because of prolonged QTc, have phone numbers to patient's lung transplant medical team at [facility] and attempting to contact to discuss about holding off azithromycin; patient's provided phone numbers of [phone] and [phone] and medical team awaiting call back from their medical coordinator or Dr. 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 -holding off azithromycin for now because of prolonged QTc, have phone numbers to patient's lung transplant medical team at [facility] and attempting to contact to discuss about holding off azithromycin; patient's provided phone numbers of [phone] and [phone] and medical team awaiting call back from their medical coordinator or Dr. Vandana Rodriguez (10) Hypomagnesemia: serum magnesium 1.8 on 10/06/18 and after IV supplementation is 2.6. (11) GERD (gastroesophageal reflux disease): -continue PPI (12) HLD (hyperlipidemia): Lipid panel on 07/25/18: total: 133, HDL: 54, LDL: 56, Triglycerides: 113 -Continue statin (13) Mood disorder: -due to concern for potential drug interactions with clopidogrel and home medication of fluoxetine 40 mg daily, the anti-depressant was switched to Zoloft (sertraline) on this admission -will give Zoloft as lower dose starting on 10/07/18 to minimize potential interaction with QTC (14) Chronic anemia: Baseline Hgb is 9 to 10 monitor H&H (15) Thrombocytopenia: Chronic Baseline ~140s DVT Prophylaxis -SCDs Full Code Subjective episode of nonsustained tachyardia overnight. EKG noted to have prolonged QTC and azithromycin held. supplementary IV magnesium was given because serum magnesium was 1.8 at the time. Patient has been asymptomatic and generally in normal sinus rhythm. denies chest pain. on room air denies shortness of breath. no vomiting, no abdomen pain Physical Exam Constitutional: WD/WN, vitals as above Eyes: PERRL, conjunctivae normal, anicteric sclerae EOM intact bilaterally ENMT: external ear and nose normal, oropharynx normal Neck: normal visual inspection Respiratory: normal respiratory effort, lungs clear to auscultation Cardiovascular: Rate/Rhythm: regular rate and regular rhythm Gastrointestinal (Abdomen): normal bowel sounds, soft, nontender, no hepatosplenomegaly Musculoskeletal: Head/Neck/Chest: normocephalic and head atraumatic Neurologic: PERRL, EOMI, accommodation nl, no face palsy, no dysarthria CN's II-XI intact bilaterally Psychiatric: A+Ox3, euthymic affect Results & Data Vital Signs (Past 12 Hours) Vital Signs Temp Pulse Pulse Pulse Resp BP Pulse Ox 10/06/18 16:00 36.4 C L 68 20 133/74 98 10/06/18 11:10 36.3 C L 67 20 146/72 H 97 10/06/18 08:00 66 10/06/18 07:27 36.4 C L 72 16 144/69 H 98 10/06/18 07:05 84 18 95 (1) ST elevation (STEMI) myocardial infarction Involved coronary artery: unspecified coronary artery Qualified Code(s): I21.3 - ST elevation (STEMI) myocardial infarction of unspecified site
[2018-10-06] MEDS: MONTELUKAST SODIUM 10 MG TABLET PO SCH (20:36)
[2018-10-06] MEDS: ROSUVASTATIN CALCIUM 20 MG TAB PO SCH (20:36)
[2018-10-06] MEDS: POSACONAZOLE 100 MG PO SCH (20:37)
[2018-10-07] MEDS: TOBRAMYCIN SULFATE INH SCH ×2 (06:56→19:42)
[2018-10-07 07:07] LABS: Hemoglobin 9.4 g/dL (14.0-18.0); Mean Corpuscular Hgb Conc 32.4 g/dL (32-36); Mean Corpuscular Volume 105.8 fL (80-100); Platelet Count 149 K/uL (130-400); RDW Coefficient of Variation 14.1 % (11.5-14.5); RDW Standard Deviation 54.2 fL (36.4-46.3); Red Blood Count 2.74 M/uL (4.7-6.1); White Blood Count 6.64 K/uL (4.8-10.8)
[2018-10-07 07:40] LABS: Albumin Level 3.1 gm/dl (3.4-5.0); BUN Creatinine Ratio 11.9 (10-20); Calcium 8.6 mg/dl (8.5-10.1); Creatinine Clr Calc Pharmacy 18.7 ml/min; Est GFR (African American) 18.1; Est GFR (Non-African American) 15.6; Magnesium 2.4 mg/dl (1.8-2.4); Potassium 4.2 mmol/L (3.5-5.1)
[2018-10-07 07:44] LABS: Albumin Globulin Ratio 0.9 (0.9-2); Bilirubin,Total 0.5 mg/dl (0.2-1); Ferritin 114.9 ng/ml (8-388); Globulin 3.3 gm/dl (2.5-4.0); Total Protein 6.4 gm/dl (6.4-8.2)
[2018-10-07] MEDS ORDERED: SODIUM CHLORIDE 0.9% 1000ML 250 ML IV ONE (07:49)
[2018-10-07] MEDS: FLUTICASONE/SALMETEROL (ADVAIR) 500/50 INH 14 PUFF INH SCH ×2 (08:01→20:08)
[2018-10-07] MEDS: predniSONE 5 MG TAB PO SCH (08:02)
[2018-10-07] MEDS: ACYCLOVIR 400 MG TAB PO SCH (08:02)
[2018-10-07] MEDS: PANTOprazole 40 MG TAB PO SCH ×2 (08:02→20:10)
[2018-10-07] MEDS: SERTRALINE HCL 50 MG TABLET PO SCH (08:02)
[2018-10-07] MEDS: ASPIRIN 81 MG ECTAB PO SCH (08:03)
[2018-10-07] MEDS: METOPROLOL SUCC 25MG EXT REL TAB PO SCH (08:04)
[2018-10-07] MEDS: CHOLECALCIFEROL 1,000 UNITS TAB PO SCH (08:04)
[2018-10-07] MEDS: TACROLIMUS 0.5 MG CAP PO SCH ×2 (08:04→20:12)
[2018-10-07] MEDS: CLOPIDOGREL BISULFATE 75 MG TAB PO SCH (08:04)
[2018-10-07] MEDS: MYCOPHENOLATE SODIUM 180 MG TAB PO SCH ×2 (08:04→20:09)
[2018-10-07] MEDS: SODIUM BICARBONATE 650 MG TAB PO SCH ×2 (08:04→20:11)
[2018-10-07] MEDS: LEVALBUTEROL TARTRATE 15 GM HFA.AER.AD INH SCH ×2 (08:05→20:11)
[2018-10-07] MEDS: INSULIN ASPART 100 UNITS/ML 3 ML PEN SC SCH ×4 (08:08→21:35)
--- NOTE | 2018-10-07 08:52 | Cardiology Progress Note ---
Date of Service October 07, 2018 Assessment & Plan (1) ST elevation (STEMI) myocardial infarction: pt remains symptom free s/p PCI EKG changes consistent with LAD STEMI evolution trop peaked at 69 concern was raised on interaction of prozac and plavix however, patient has been on combination and previous stents remain patent would be concerned to switch to Brillinta given his hx of GI bleed and drugs increased risk of bleeding as well as the cost of the med cont asa and plavix asymptomatic, sustained ventricular tachycardia, resolved no further episodes after given magnesium and metoprolol obviously, this is a concern with LAD STEMI and resultant reduced EF no role for ICD given timeline unable to provide antiarrhythmics give QT prolongation my office will arrange for [facility] rep to fit patient will increase metoprolol to 50mg bid cont to monitor on tele from cardiac standpoint likely able to d/c tomorrow, obviously will need to see renal function as well (2) CAD (coronary artery disease): previous stents patent (3) Paroxysmal atrial fibrillation: hx of significant GI bleed on triple therapy has remained in sinus cont dual antiplatelet therapy HGB trending down? no obvious sign of bleed (4) HTN (hypertension): improving elevated this AM will increase metoprolol to 50bid obviously unable to add: acei, arb, spironolactone could consider hydralazine/nitrates should bp rise and hr decrease (5) Ischemic cardiomyopathy: (6) CKD (chronic kidney disease) stage 5, GFR less than 15 ml/min: creat rising nephrology following Subjective Pt seen and examined, events of overnight reviewed. Pt states that he feels well. No complaints overnight. Denies cp, sob, palpitations, lightheadedness or dizziness. tele reviewed: sinus rhythm without arrhythmia or significant ectopy. Review of Systems Review of Systems: All systems reviewed & are unremarkable except as noted in HPI & below Physical Exam Physical Exam: General: Awake, alert and oriented x 3. No acute distress. HEENT: Normocephalic, atraumatic. Pupils equal, round and reactive to light and accommodation. Extraocular muscles are intact. Anicteric sclera. Moist mucous membranes. Neck: No JVD. No bruit. Cardiovascular: Regular. Positive S-4. Normal S-1 and S-2. No S-3. No murmurs or rubs. Pulmonary: Clear to auscultation B/L. No rales, rhonchi or wheezing Abdomen: Bowel sounds x 4, soft. No rebound, guarding or tenderness. No organomegaly. Extremities: No clubbing, cyanosis or edema. +2 pedal pulses bilaterally. Skin: Warm and dry. Results & Data Vital Signs (Past 12 Hours) Vital Signs Temp Pulse Pulse Resp BP Pulse Ox 10/07/18 07:59 36.5 C 86 22 164/75 H 100 10/07/18 06:56 63 14 98 10/07/18 04:07 36.3 C L 68 18 142/65 H 98 10/06/18 23:49 74 10/06/18 23:46 36.8 C 75 17 136/66 97 (1) ST elevation (STEMI) myocardial infarction Involved coronary artery: unspecified coronary artery Qualified Code(s): I21.3 - ST elevation (STEMI) myocardial infarction of unspecified site
[2018-10-07] MEDS ORDERED: METOPROLOL SUCC 25MG EXT REL TAB PO SCH (09:00)
--- NOTE | 2018-10-07 10:08 | Nephrology Progress Note ---
Date of Service October 07, 2018 Assessment & Plan (1) CKD (chronic kidney disease) stage 5, GFR less than 15 ml/min: -- Creatinine with continued slight rise, 3.5 mg/dL today, consistent with ATN on CKD -- Volume status remains euvolemic -- Blood pressure is acceptable -- Metabolic profile is otherwise within normal limits -- Medications are appropriate for kidney function -- AVF is mature for use -- There is no emergent indication for [facility]CILL[facility] SPECIALIST -- I/O's will be documented -- Will monitor metabolic profile daily and continue to follow (2) ST elevation (STEMI) myocardial infarction: -- POD# 3 s/p PCI -- Possible DC home tomorrow from cardiac standpoint per report (3) CAD (coronary artery disease): -- Volume status acceptable -- No signs of decompensated CHF (4) Paroxysmal atrial fibrillation: -- Off anticoagulation secondary to reported bleeding and anemia in the past (5) HTN (hypertension): -- Treated with doxazosin and beta-cally therapy (6) Idiopathic pulmonary fibrosis: (7) Lung transplant status: -- History of lung transplant; 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 Follows with [address] Rodriguez at [facility] (8) Chronic anemia: -- Hgb stable -- Tsat slightly low, 200 mg IV Venofer daily started today Subjective No acute events overnight. Shaun denies chest pain or palpitations. No dyspnea. No additional events on Tele overnight. Voiding urine without difficulty. Out of bed with PT this morning. Ambulating with walker. Review of Systems Review of Systems: All systems reviewed & are unremarkable except as noted in HPI & below Physical Exam Constitutional: well developed and + thin; no acute distress and not ill appearing Eyes: no scleral abnormality and no corneal abnormality ENMT: Mouth: no oral mucosal abnormality and oral mucous membranes not dry Neck: normal visual inspection and trachea midline Respiratory: normal respiratory effort Auscultation: lungs clear to auscultation bilaterally; no rales Cardiovascular: Rate/Rhythm: regular rate Heart Sounds: normal S1 and normal S2; no murmur and no cardiac rub Extremities: + AV fistula; no edema Gastrointestinal (Abdomen): Percussion/Palpation: abdomen soft; abdomen nontender Musculoskeletal: Extremities: no cyanosis, no clubbing and no petechiae Skin: normal turgor; no rashes Neurologic: Motor/Sensory: no tremor and no asterixis Psychiatric: Orientation: alert Affect: euthymic affect Results & Data Vital Signs (Past 12 Hours) Vital Signs Temp Pulse Pulse Resp BP Pulse Ox 10/07/18 08:05 72 10/07/18 07:59 36.5 C 86 22 164/75 H 100 10/07/18 06:56 63 14 98 10/07/18 04:07 36.3 C L 68 18 142/65 H 98 10/06/18 23:49 74 10/06/18 23:46 36.8 C 75 17 136/66 97 Laboratory Results Laboratory Results - last 24 hr 10/06/18 10/06/18 10/06/18 11:33 16:34 21:00 WBC RBC Hgb Hct MCV MCH MCHC RDW Std Deviation RDW Coeff of Ros Plt Count MPV Sodium Potassium Chloride Carbon Dioxide Anion Gap BUN Creatinine Est Cr Clr Drug Dosing Est GFR ( Amer) Est GFR (Non-Af Amer) BUN/Creatinine Ratio Glucose POC Glucose 146 H 197 H 144 H Calcium Magnesium Iron TIBC Transferrin Transferrin % Sat Ferritin Total Bilirubin AST ALT Alkaline Phosphatase Total Protein Albumin Globulin Albumin/Globulin Ratio 10/07/18 10/07/18 10/07/18 06:46 06:46 07:22 WBC 6.64 RBC 2.74 L Hgb 9.4 L Hct 29.0 L MCV 105.8 H MCH 34.3 H MCHC 32.4 RDW Std Deviation 54.2 H RDW Coeff of Ros 14.1 Plt Count 149 MPV 11.0 H Sodium 139 Potassium 4.2 Chloride 109 H Carbon Dioxide 20 L Anion Gap 10.0 BUN 42 H Creatinine 3.57 H D Est Cr Clr Drug Dosing 18.7 Est GFR ( Amer) 18.1 Est GFR (Non-Af Amer) 15.6 BUN/Creatinine Ratio 11.9 Glucose 106 H POC Glucose 122 H Calcium 8.6 Magnesium 2.4 Iron 43 TIBC 235 L Transferrin 192 L Transferrin % Sat 16 L Ferritin 114.9 Total Bilirubin 0.5 AST 50 H ALT 20 Alkaline Phosphatase 70 Total Protein 6.4 Albumin 3.1 L Globulin 3.3 Albumin/Globulin Ratio 0.9 (1) ST elevation (STEMI) myocardial infarction Involved coronary artery: unspecified coronary artery Qualified Code(s): I21.3 - ST elevation (STEMI) myocardial infarction of unspecified site
[2018-10-07] MEDS: IRON SUCROSE 100 MG in 0.9 % SODIUM CHLORIDE 100 ML IV SCH (10:30)
[2018-10-07 13:08] LABS: Calcium 8.8 mg/dl (8.5-10.1); Creatinine Clr Calc Pharmacy 19.7 ml/min; Est GFR (African American) 19.2; Est GFR (Non-African American) 16.6; Potassium 4.5 mmol/L (3.5-5.1)
--- NOTE | 2018-10-07 18:48 | Hospitalist Progress Note ---
Date of Service October 07, 2018 Assessment & Plan (1) ST elevation (STEMI) myocardial infarction: -admission on 09/24/18 for symptoms complaint of chest pain, left jaw pain, vomiting and diaphoresis and found to have ST Elevation myocardial infarction and patient was taken emergently to the [facility] and on cardiac cath was found to have Anterior STEMI/subtotal occlusion of mid LAD just after prior stent; Moderate non-culprit coronary artery disease (50% ostial RCA) and had PCI of mid LAD with single drug-eluting stent (3.0 x 15 mm Onyxoverlapped with distal aspect of prior stent) -patient received loading with clopidogrel 600 mg on 10/04/18 and recommended to continue clopidogrel 75 mg daily and aspirin 81 mg daily -due to concern for potential drug interactions with clopidogrel and home medication of fluoxetine 40 mg daily, the anti-depressant was switched to Zoloft (sertraline) daily on this admission -continue aspirin and clopidogrel, metoprolol succinate 50 mg BID -continue statin -EF 30 to 35% -patient awaiting Life Vest as recommended by cardiology service before hospital discharge (2) CAD (coronary artery disease): History of Coronary artery disease Ischemic cardiomyopathy -S/P MITCHELL to LAD and circumflex in 05/2018 -this hospital admission for ST elevation myocardial infarction with drug eluting stent to mid LAD, management as above (3) Elevated temperature: Initial temperature in ER 37.8C Reported that patient was diaphoretic with chest pain likely from myocardial infarction no signs of infection at this time and currently normal body temperatures (4) Paroxysmal atrial fibrillation: Paroxysmal atrial fibrillation Nonsustained ventricular tachycardia/Prolonged QTC on EKG -Off anticoagulation secondary to reported bleeding and anemia in the past -continue metoprolol as started by cardiology service -concern for nonsustained ventricular tachycardia overnight between 10/05/18 to 10/06/18 and because of prolonged QTC, azithromycin stopped, lowered the dose of Zoloft (sertraline) from 50 mg to 25 mg starting on 10/07/18 -QTC less prolonged on 10/07/18 (5) Hyperglycemia: History of hyperglycemia secondary to chronic steroid use HbA1c: 5.5 -Hold home humalog sliding scale -Novolog sliding scale per protocol -glucose controlled (6) HTN (hypertension): Essential Hypertension Blood pressure controlled -continue beta cally -continue home dose doxasozin 8 mg (7) CKD (chronic kidney disease) stage 5, GFR less than 15 ml/min: AV fistula in place. Not on HD yet. 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 [address] Vandana Rodriguez at [facility], phone numbers of [phone] and [phone] for transplant center at [facility] -Continue myfortic, tacrolimus, Advair, singulair, albuterol,prednisone, Bactrim, acyclovir, posaconazole, inhaled tobramycin is nonformulary and patient can use if brought from home -holding off azithromycin for now because of prolonged QTc, -have spoke with [facility] administrative coordinator Ambar Cruz and discussed that azithromycin being held at this time and that patient will need close follow up with transplant team after this hospital admission (9) Lung transplant status: management as above (10) Hypomagnesemia: serum magnesium 1.8 on 10/06/18 and after IV supplementation is 2.6. (11) GERD (gastroesophageal reflux disease): -continue PPI (12) HLD (hyperlipidemia): Lipid panel on 07/25/18: total: 133, HDL: 54, LDL: 56, Triglycerides: 113 -Continue statin (13) Mood disorder: -due to concern for potential drug interactions with clopidogrel and home medication of fluoxetine 40 mg daily, the anti-depressant was switched to Zoloft (sertraline) on this admission -Zoloft as lower dose starting on 10/07/18 to minimize potential interaction with QTC (14) Chronic anemia: Baseline Hgb is 9 to 10 monitor H&H (15) Thrombocytopenia: Chronic Baseline ~140s DVT Prophylaxis -SCDs Full Code Subjective breathing on room air. denies chest pain. denies abdomen pain. telemetry is stable. no vomiting. no lightheadedness Physical Exam Constitutional: WD/WN, vitals as above Eyes: PERRL, conjunctivae normal, anicteric sclerae EOM intact bilaterally ENMT: external ear and nose normal, oropharynx normal Neck: normal visual inspection Respiratory: normal respiratory effort, lungs clear to auscultation Cardiovascular: Rate/Rhythm: regular rate and regular rhythm Gastrointestinal (Abdomen): normal bowel sounds, soft, nontender, no hepatosplenomegaly Musculoskeletal: Head/Neck/Chest: normocephalic and head atraumatic Neurologic: PERRL, EOMI, accommodation nl, no face palsy, no dysarthria CN's II-XI intact bilaterally Psychiatric: A+Ox3, euthymic affect Results & Data Vital Signs (Past 12 Hours) Vital Signs Temp Pulse Pulse Pulse Resp BP Pulse Ox 10/07/18 15:16 36.5 C 68 19 134/61 96 10/07/18 12:00 36.7 C 68 16 135/70 98 10/07/18 08:05 72 10/07/18 07:59 36.5 C 86 22 164/75 H 100 10/07/18 06:56 63 14 98 (1) ST elevation (STEMI) myocardial infarction Involved coronary artery: unspecified coronary artery Qualified Code(s): I21.3 - ST elevation (STEMI) myocardial infarction of unspecified site
[2018-10-07] MEDS: ROSUVASTATIN CALCIUM 20 MG TAB PO SCH (20:09)
[2018-10-07] MEDS: MONTELUKAST SODIUM 10 MG TABLET PO SCH (20:10)
[2018-10-07] MEDS: POSACONAZOLE 100 MG PO SCH (20:12)
[2018-10-07] MEDS ORDERED: METOPROLOL SUCC 50MG EXT REL TAB PO SCH (21:00)
[2018-10-08] MEDS ORDERED: XOPENEX/ATROVENT 1.25mg/0.5MG NEB COMBO NEB STA (06:07)
[2018-10-08 06:11] LABS: Hematocrit (blood only) 28.7 % (42-52); Hemoglobin 9.3 g/dL (14.0-18.0); Mean Corpuscular Hgb Conc 32.4 g/dL (32-36); Mean Corpuscular Volume 106.7 fL (80-100); Mean Platelet Volume 11.3 fL (7.4-10.4); Platelet Count 159 K/uL (130-400); RDW Coefficient of Variation 14.2 % (11.5-14.5); RDW Standard Deviation 54.9 fL (36.4-46.3); Red Blood Count 2.69 M/uL (4.7-6.1); White Blood Count 6.87 K/uL (4.8-10.8)
[2018-10-08] MEDS ORDERED: IPRATROPIUM BROMIDE NEB SOLN 0.02% 2.5 ML VIAL INH STA (06:11)
[2018-10-08] MEDS ORDERED: LEVALBUTEROL 1.25MG/0.5ML NEB INH STA (06:11)
[2018-10-08] MEDS ORDERED: methylPREDNISolone 20 MG in SYRINGE 0 ML IV STA (06:30)
[2018-10-08 06:39] LABS: BUN Creatinine Ratio 12.6 (10-20); Calcium 8.6 mg/dl (8.5-10.1); Creatinine Clr Calc Pharmacy 19.2 ml/min; Est GFR (African American) 18.6; Est GFR (Non-African American) 16.1; Magnesium 2.2 mg/dl (1.8-2.4); Potassium 4.1 mmol/L (3.5-5.1)
[2018-10-08] MEDS: METOPROLOL SUCC 50MG EXT REL TAB PO SCH ×2 (06:48→21:03)
[2018-10-08] MEDS: NITROGLYCERIN SL 0.4 MG/TAB TAB SL PRN ×2 (06:53→10:57)
[2018-10-08] MEDS ORDERED: TRAMADOL HCL 50 MG TABLET PO PRN (06:55)
--- NOTE | 2018-10-08 06:55 | Hospitalist Progress Note ---
Date of Service October 08, 2018 Assessment & Plan (1) Acute hypoxemic respiratory failure: Secondary to COPD/ILD exacerbation Supplemental O2 Doxycycline, nebs, Solu-Medrol 1 dose now May require increased daily prednisone dose pending response. Will relay to AM provider. Subjective Made aware by RN of patient complaints of dyspnea around 6 AM. O2 sats 85 on room air, patient noted be tachypneic. Bilateral coarse lung sounds as per RN. 2-day history of dry cough symptoms as per patient. Around 6:30 AM patient complained of midsternal chest pain, not relieved by 3 doses of nitroglycerin. Upon further query, patient says he gets "this chest discomfort from interstitial lung disease attack." Physical Exam Physical Exam: GENERAL: uncomfortable, anxious, tachypneic, minimal respiratory distress, hard of hearing SKIN: Pallor , warm HEENT: pale palpebral conjunctivae, no ptosis, dry buccal mucosa NECK : Supple, no tenderness CHEST : Decreased breath sounds right, bilateral rhonchi , no tenderness HEART : Diminished S1,S2, no obvious murmurs ABDOMEN: Some distention, nontender EXTREMITIES : minimal LE swelling/tenderness, no other conspicuous deformities noted NEUROLOGIC : Coherent, no facial asymmetry, no other gross focality except for mild hearing impairment Results & Data Vital Signs (Past 12 Hours) Vital Signs Temp Pulse Resp BP Pulse Ox 10/08/18 06:39 30 H 168/81 H 10/08/18 06:20 77 16 96 10/08/18 03:55 37.1 C 70 18 137/67 98 10/08/18 00:17 36.8 C 69 21 150/69 H 99 10/07/18 19:48 36.3 C L 72 19 157/79 H 98 10/07/18 19:42 79 16 98 Laboratory Results Chest x-ray showed infiltrate right similar to 10/04 CXR EKG as per my interpretation : Rate 75, NSR, first-degree block T wave flattening lateral leads, ST elevation, anterior leads (Of note, ST elevation present on most of patient's EKGs taken during confinement even without symptoms.)
[2018-10-08] MEDS: HYDROmorphone INJ 0.5 MG/0.5 ML SYR IV PRN (07:01)
--- NOTE | 2018-10-08 07:04 | XRay Report ---
XR chest 1V portable CLINICAL HISTORY: sob COMPARISON STUDY: 10/04/2018 FINDINGS: The heart remains enlarged. There is pulmonary emphysema. There are extensive right mid and lower lung zone airspace opacities. There is right hilar prominence. The findings remain similar to the prior study. IMPRESSION: 1. Stable right hilar and paramediastinal fullness. 2. Stable extensive right mid and lower lung zone interstitial airspace opacities 3. Right upper lung zone bullous emphysema Electronically signed by: Bon Ariza M.D. 10/08/2018 7:03 AM
[2018-10-08] MEDS: TOBRAMYCIN SULFATE INH SCH ×2 (07:13→19:07)
[2018-10-08] MEDS ORDERED: DOXYCYCLINE HYCLATE 100 MG in DEXTROSE 5% 100 ML IV STA (07:20)
[2018-10-08 07:26] LABS: HCO3 ABG 20 mmol/L (19-24); PCO2 ABG 33 mmHg (35-46); PO2 ABG 83 mm/Hg (80-95)
[2018-10-08 07:28] LABS: Allen Test Pos (Pos)
[2018-10-08] MEDS: LEVALBUTEROL 1.25MG/0.5ML NEB INH SCH ×3 (07:39→19:02)
[2018-10-08] MEDS: IPRATROPIUM BROMIDE NEB SOLN 0.02% 2.5 ML VIAL INH SCH ×3 (07:39→19:02)
[2018-10-08] MEDS: SERTRALINE HCL 50 MG TABLET PO SCH (07:46)
[2018-10-08] MEDS: PANTOprazole 40 MG TAB PO SCH ×2 (07:46→21:03)
[2018-10-08] MEDS: CLOPIDOGREL BISULFATE 75 MG TAB PO SCH (07:46)
[2018-10-08] MEDS: ACYCLOVIR 400 MG TAB PO SCH (07:47)
[2018-10-08] MEDS: predniSONE 5 MG TAB PO SCH (07:47)
[2018-10-08] MEDS: CHOLECALCIFEROL 1,000 UNITS TAB PO SCH (07:47)
[2018-10-08] MEDS: SODIUM BICARBONATE 650 MG TAB PO SCH ×2 (07:48→21:03)
[2018-10-08] MEDS: FLUTICASONE/SALMETEROL (ADVAIR) 500/50 INH 14 PUFF INH SCH ×2 (07:48→20:59)
[2018-10-08] MEDS: TACROLIMUS 0.5 MG CAP PO SCH ×2 (07:48→21:02)
[2018-10-08] MEDS: ASPIRIN 81 MG ECTAB PO SCH (07:48)
[2018-10-08] MEDS: MYCOPHENOLATE SODIUM 180 MG TAB PO SCH ×2 (07:48→21:01)
[2018-10-08] MEDS: LEVALBUTEROL TARTRATE 15 GM HFA.AER.AD INH SCH ×2 (07:51→21:04)
[2018-10-08] MEDS: INSULIN ASPART 100 UNITS/ML 3 ML PEN SC SCH ×4 (08:30→21:04)
--- NOTE | 2018-10-08 10:59 | Cardiology Progress Note ---
Date of Service October 08, 2018 Assessment & Plan (1) ST elevation (STEMI) myocardial infarction: once again with chest discomfort and sob, similar to presentation EKG showing evolutionary changes of anterior STEMI, no benefit at this time chest xray this AM reported as stable echo unlikely to be beneficial at this time given recent LAD STEMI question would be if symptoms are cardiac or pulmonary in nature concerned about lungs given hx of transplant, will order stat CT of chest without contrast if any significant abnormalities would transfer to [facility] transplant center if no abnormality on chest ct would likely have to repeat cardiac cath unfortunately further dye load will only worsen renal function that has already been declining (2) CAD (coronary artery disease): previous stents patent (3) Paroxysmal atrial fibrillation: hx of significant GI bleed on triple therapy has remained in sinus cont dual antiplatelet therapy HGB trending down? no obvious sign of bleed receiving iron supplementation (4) HTN (hypertension): controlled today (5) Ischemic cardiomyopathy: (6) CKD (chronic kidney disease) stage 5, GFR less than 15 ml/min: nephrology following Subjective Pt seen and examined, significant events overnight. Developed chest pain early this AM along with sob. States that the chest pain is similar to the pain that he presented with initially. Discomfort now only slight but still significantly sob. No improvement with nebs. tele reviewed: sinus rhythm without arrhythmia. Review of Systems Review of Systems: All systems reviewed & are unremarkable except as noted in HPI & below Physical Exam Physical Exam: General: Awake, alert and oriented x 3. No acute distress. HEENT: Normocephalic, atraumatic. Pupils equal, round and reactive to light and accommodation. Extraocular muscles are intact. Anicteric sclera. Moist mucous membranes. Neck: No JVD. No bruit. Cardiovascular: Regular. Positive S-4. Normal S-1 and S-2. No S-3. No murmurs or rubs. Pulmonary: Coarse with diffuse rhonchi Abdomen: Bowel sounds x 4, soft. No rebound, guarding or tenderness. No o rganomegaly. Extremities: No clubbing, cyanosis or edema. +2 pedal pulses bilaterally. Skin: Warm and dry. Results & Data Vital Signs (Past 12 Hours) Vital Signs Temp Pulse Pulse Resp BP Pulse Ox 10/08/18 08:00 77 10/08/18 07:13 75 20 94 10/08/18 06:58 117/69 04/20/19 06:50 134/73 10/08/18 06:45 152/77 H 10/08/18 06:39 30 H 168/81 H 10/08/18 06:20 77 16 96 10/08/18 03:55 37.1 C 70 18 137/67 98 10/08/18 00:17 36.8 C 69 21 150/69 H 99 (1) ST elevation (STEMI) myocardial infarction Involved coronary artery: unspecified coronary artery Qualified Code(s): I21.3 - ST elevation (STEMI) myocardial infarction of unspecified site
[2018-10-08] MEDS ORDERED: NITROGLYCERIN 2% OINTMENT 30GM TUBE EXT ONE (11:04)
[2018-10-08] MEDS ORDERED: FUROSEMIDE 10 MG/ML 10 ML VIAL IV ONE (11:04)
[2018-10-08] MEDS ORDERED: NITROGLYCERIN 2% OINTMENT 30GM TUBE ONE (11:06)
--- NOTE | 2018-10-08 11:13 | Nephrology Progress Note ---
Date of Service October 08, 2018 Assessment & Plan (1) CKD (chronic kidney disease) stage 5, GFR less than 15 ml/min: -- Creatinine stable at 3.4 (baseline has been ~ 3.0). Volume status & electrolyte balance remain acceptable. No acute indication for HD today -- AVF is mature for use -- Will monitor metabolic profile daily and continue to follow (2) ST elevation (STEMI) myocardial infarction: -- POD# 4 s/p PCI -- Patient to be fitted for Life Vest today (3) CAD (coronary artery disease): -- Volume status acceptable -- No signs of decompensated CHF (4) Paroxysmal atrial fibrillation: -- Off anticoagulation secondary to reported bleeding and anemia in the past (5) HTN (hypertension): -- Treated with doxazosin and beta-cally therapy (6) Idiopathic pulmonary fibrosis: (7) Lung transplant status: -- History of lung transplant; 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 [address] Rodriguez at [facility] (8) Chronic anemia: -- Hgb stable -- Tsat slightly low, 200 mg IV Venofer daily started 10/07 Subjective Mr. Pantoja was seen & examined in the PCU this morning. He reports continued chest discomfort at rest. He is scheduled to be fitted for a life vest this afternoon Review of Systems Constitutional: no fever Respiratory: no dyspnea Cardiovascular: + chest pain at rest Gastrointestinal: no diarrhea/loose stools Genitourinary: + urinary hesitancy Physical Exam Constitutional: + ill appearing Neck: trachea midline, no thyromegaly Respiratory: normal respiratory effort, lungs clear to auscultation Cardiovascular: Rate/Rhythm: regular rate and regular rhythm Gastrointestinal (Abdomen): normal bowel sounds, soft, nontender, no hepatosplenomegaly Results & Data Vital Signs (Past 12 Hours) Vital Signs Temp Pulse Pulse Resp BP Pulse Ox 10/08/18 10:58 81 168/81 H 92 10/08/18 08:00 77 10/08/18 07:13 75 20 94 10/08/18 06:58 117/69 10/08/18 06:50 134/73 10/08/18 06:45 152/77 H 10/08/18 06:39 30 H 168/81 H 10/08/18 06:20 77 16 96 10/08/18 03:55 37.1 C 70 18 137/67 98 10/08/18 00:17 36.8 C 69 21 150/69 H 99 Laboratory Tests 10/04/18 10/08/18 10/08/18 21:29 05:40 05:40 WBC 6.87 Hgb 9.3 L Hct 28.7 L Plt Count 159 Sodium 142 Potassium 4.1 Chloride 113 H Carbon Dioxide 20 L BUN 44 H Creatinine 3.49 H Glucose 100 H Troponin I 63.800 H* 10/08/18 07:04 WBC Hgb Hct Plt Count Sodium Potassium Chloride Carbon Dioxide BUN Creatinine Glucose Troponin I 13.900 H* (1) ST elevation (STEMI) myocardial infarction Involved coronary artery: unspecified coronary artery Qualified Code(s): I21.3 - ST elevation (STEMI) myocardial infarction of unspecified site
[2018-10-08] MEDS ORDERED: FUROSEMIDE 80 MG in SYRINGE 0 ML IV ONE (11:15)
[2018-10-08] MEDS: IRON SUCROSE 100 MG in 0.9 % SODIUM CHLORIDE 100 ML IV SCH (11:36)
--- NOTE | 2018-10-08 11:40 | CT Scan Report ---
CT chest wo con CLINICAL HISTORY: Shortness of breath. History of lung transplantation. COMPARISON STUDY: Chest x-ray dated 10/08/2018 CT DOSE: 458.28 mGy.cm TECHNIQUE: CT of the thorax was performed from the thoracic inlet to the lung bases. Images are revi ewed in the axial, sagittal, and coronal planes. IV contrast was not administered for this examinatio n. A dose lowering technique was utilized adhering to the principles of ALARA. FINDINGS: Thyroid: Imaged portions of the thyroid gland are normal in appearance. Thoracic aorta: The thoracic aorta is normal in course and caliber, noting standard 3 vessel arch jatin martin. Heart: The heart is mildly enlarged. There are moderately extensive coronary artery calcifications. Lungs and pleural spaces: There are small bilateral pleural effusions. There is right lung volume los s. There is extensive right lung interstitial lung disease with traction bronchiectasis and honeycomb ing. There is a 12 cm right apical bulla. There are multiple subcentimeter left lung nodules, several of which demonstrate associated groundglass halo. There are also scattered left lung groundglass opa cities. Mediastinum: There are mildly enlarged mediastinal lymph nodes measuring up to 12 mm in short axis. Dyan: There is no pathologic hilar adenopathy given the limitations of a noncontrast study Axilla: There is no pathologic axillary lymphadenopathy Upper abdomen: There is a hiatal hernia. Skeletal structures: There are no lytic or blastic osseous lesions. IMPRESSION: 1. 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 Right lung volume loss 3. 12 cm right apical bulla 4. Mild mediastinal lymphadenopathy 5. Numerous left lung pulmonary nodules, some of which demonstrate a groundglass halo. In addition th ere are scattered pure groundglass opacities. The findings are likely infectious, although post trans plantation lymphoproliferative disease cannot be excluded given history of a prior lung transplantati on. Atypical organisms must be considered. Clinical and radiographic follow-up is advocated. Electronically signed by: Bon Ariza M.D. 10/08/2018 11:38 AM
[2018-10-08] MEDS ORDERED: XOPENEX/ATROVENT 1.25mg/0.5MG NEB COMBO NEB SCH (12:00)
[2018-10-08] MEDS ORDERED: NiCARDipine HCL INJ 2.5 MG/ML 10 ML AMP ONE (12:12)
[2018-10-08] MEDS ORDERED: HEPARIN (PORCINE) 1000 UNIT/ML 10 ML (CATH LAB USE ONLY) ONE (12:12)
[2018-10-08] MEDS: ACETAMINOPHEN 325 MG TAB PO PRN (12:13)
[2018-10-08] MEDS ORDERED: fentaNYL citrate 100 MCG/2 ML VIAL ONE (12:13)
[2018-10-08] MEDS ORDERED: NITROGLYCERIN/D5W 100MCG/ML 20ML SYR ONE (12:13)
[2018-10-08] MEDS ORDERED: MIDAZOLAM HCL 1 MG/ML 2ML VIAL ONE (12:13)
--- NOTE | 2018-10-08 12:25 | Pre Anesthesia Assessment ---
Date of Service October 08, 2018 Pre Sedation Assessment Vital Signs Temp Pulse Pulse Resp BP Pulse Ox 10/08/18 10:58 81 168/81 H 92 10/08/18 08:00 77 10/08/18 07:13 75 20 94 10/08/18 06:58 117/69 10/08/18 06:50 134/73 10/08/18 06:45 152/77 H 10/08/18 06:39 30 H 168/81 H 10/08/18 06:20 77 16 96 10/08/18 03:55 37.1 C 70 18 137/67 98 10/08/18 00:17 36.8 C 69 21 150/69 H 99 10/07/18 19:48 36.3 C L 72 19 157/79 H 98 10/07/18 19:42 79 16 98 10/07/18 15:16 36.5 C 68 19 134/61 96 Cardiovascular + tachycardic Respiratory + respiratory distress Pre-Sedation Airway Assessment Smoking Status: Current every day smoker Hx Sleep Apnea: No Hx Difficult Intubation: No Short, Thick Neck: No Thyromental Distance: > or= 3.5 Finger Breadths Oral Cavity: + WNL Mallampati Class: III Procedure Planning Contraindications for Sedation: none Current Medications Reviewed: Yes Notes The planned sedation has been discussed with the patient. Informed Consent was obtained. I have identified the patient, determined the appropriateness of sedation and have assessed the patient immediately prior to the procedure. All medicine(s) and interventions are by my order.
--- NOTE | 2018-10-08 13:08 | Post Anesthesia Assessment ---
Date of Service October 08, 2018 Post Sedation Assessment Vital Signs Temp Pulse Pulse Resp BP Pulse Ox 10/08/18 10:58 81 168/81 H 92 10/08/18 08:00 77 10/08/18 07:13 75 20 94 10/08/18 06:58 117/69 10/08/18 06:50 134/73 10/08/18 06:45 152/77 H 10/08/18 06:39 30 H 168/81 H 10/08/18 06:20 77 16 96 10/08/18 03:55 37.1 C 70 18 137/67 98 10/08/18 00:17 36.8 C 69 21 150/69 H 99 10/07/18 19:48 36.3 C L 72 19 157/79 H 98 10/07/18 19:42 79 16 98 10/07/18 15:16 36.5 C 68 19 134/61 96 Recovery Score Activity: Moves 4 extremities Respiration: Deep Breath/Cough Circulation: +/-20% PreAnes Value Consciousness: Fully Awake Oxygen Saturation: O2 needed for >90% Discharge Sedation Level of Care: Fast Track Phase II Post Sedation Plan On clinical assessment, the patient appears to have tolerated the sedation without complications. Patient is recovering as anticipated. Patient will continue to be monitored by nursing and may be discharged when sedation discharge criteria are met per below protocol. Upon Completions of procedure and additional 15 minutes continue every 5 minute vital signs and the P.A.R. score; then discharge to a Phase I or Fast Track to Phase II per the following guidelines: * Discharge Patient to appropriate Phase II area if PAR is 8 or greater or return to pre- procedure baseline. The post - procedure orders will be as directed. * If PAR score is less than 8 or not return to pre-procedure baseline then patient will follow Phase I monitoring till PAR is reached for Phase II. The Phase I may be done in procedure room or may call to secure a Phase I area. * If naloxone or flumazenil are used for reversal, hold in Phase I for continued monitoring from when last reversal dose was given for a minimum of 60 minutes or longer pending the nurse and/or physician discretion of patient condition before discharge to Phase II. Please call the Sedation Physician to re-evaluate and complete post-note for discharge to Phase II area. Do NOT discharge from procedure sedation or Phase 1 until post- sedation evaluation note is complete by procedure /sedation MD Sedation Discharge Instructions to be given to the patient at discharge to home.
--- NOTE | 2018-10-08 13:08 | Cardiac Catheterization ---
Cardiac Cath Procedure Full Procedure Date October 08, 2018 Pre-Procedure Diagnosis Pre-Procedure Diagnosis: Acute Coronary Syndrome AUC Score AUC Score: 8 Post-Procedure Diagnosis Post-Procedure Diagnosis: Moderate CAD and Normal Intracardiac Pressures Procedure(s) Performed Procedure(s) Performed: Coronary Angiography and Left Heart Cath [facility] Chidi Blair MD Medical Instrument Technician(s) Wilberto Estimated Blood Loss Estimated Blood Loss: 5 Medication(s) Medication(s): Fentanyl, Lidocaine 1% and Versed Summary of Findings Indication: Heart Alert/Recurrent dyspnea and chest pain 77-year-old man with a history of single lung transplant for IPF in 2012, advanced chronic kidney disease with right upper extremity fistula in preparation for dialysis, prior PFO closure and CAD post Anterior STEMI 4 days ago treated with repeat MITCHELL to LAD who returned with recurrent chest pain and shortness of breath. Access: 6 Fr left common femoral artery Catheters: JL4, JR 4 Findings: LM -luminal irregularities LAD - 30-40% proximal stenosis, patent proximal to mid prior stents. Mid, distal luminal irregularities as wraps around apex. 2nd diagonal widely patent Circumflex -large caliber vessel, 20-30% mid segment disease, 30-40% disease in large OM 2 RCA -dominant, 50% ostial stenosis (no pressure dampening with catheter engagement), 40% mid segment disease. 30% distal disease. PDA, PLB is without significant disease LVEDP -12 Arterial Closure: Mynx/Manual hold Summary: 1. Moderate non-obstructive coronary artery disease - Widely patent prior LAD stents - 50% ostial RCA 2. Normal intracardiac filling pressure Recommendations: Return to telemetry for further evaluation of non-cardiac causes of acute dyspnea. Continue current DAPT likely indefinitely Hemodynamics Rest Ao:: 124/55/86 Final Ao: 143/64/97 LV: 137/12 Recommendations Recommendations: Medical Therapy and/or Counseling Specimens Specimens: None Radiation Exposure (mGy) 898 Contrast (mls) 70 Fluids (cc crystalloids) Fluids (cc crystalloids): 10 Drains Drains: none Anesthesia moderate Procedural Complication(s) None Disposition PCU ACC Data: [place] [place] Cardiac Status Clinical evaluation leading to the procedure CAD Presenation: Non STEMI Anginal Classification: CCS IV Heart Failure: No Cardiogenic Shock within 24 Hours: No Cardiac Arrest within 24 Hours: No Imaging Studies Past 6 Months: Yes Stress Studies Past 6 Months: No Diagnostic Physicians Name: Chidi Blair MD Status: Elective Closure Device Percutaneous Entry Location: Femoral Closure Device: Mynx Recommendations: Medical Therapy and/or Counseling Intraprocedure Events Significant Disection: No Perforation: No
[2018-10-08] MEDS ORDERED: SODIUM CHLORIDE 0.9% 1000ML 1,000 ML IV SCH (13:15)
--- NOTE | 2018-10-08 19:25 | Hospitalist Progress Note ---
Date of Service October 08, 2018 Assessment & Plan (1) ST elevation (STEMI) myocardial infarction: ST elevation (STEMI) myocardial infarction: -admission on 09/24/18 for symptoms complaint of chest pain, left jaw pain, vomiting and diaphoresis and found to have ST Elevation myocardial infarction and patient was taken emergently to the [facility] and on cardiac cath was found to have Anterior STEMI/subtotal occlusion of mid LAD just after prior stent; Moderate non-culprit coronary artery disease (50% ostial RCA) and had PCI of mid LAD with single drug-eluting stent (3.0 x 15 mm Onyxoverlapped with distal aspect of prior stent) and subsequent ejection fraction of 30 to 35% because of the ischemic myopathy and ischemic CAD -hospital course complicated by: Paroxysmal atrial fibrillation Nonsustained ventricular tachycardia and Prolonged QTC on EKG (concern for nonsustained ventricular tachycardia overnight between 10/05/18 to 10/06/18 and because of prolonged QTC, azithromycin stopped, lowered the dose of Zoloft (sertraline) from 50 mg to 25 mg starting on 10/07/18) and also complicated by episode on 10/08/18 of of recurrent chest pain and dyspnea (a second cardiac cath on 10/08/18 did not find evidence of re-infarction) -will continue aspirin and clopidogrel, metoprolol succinate 50 mg BID, will need Life Vest -will hold off further Lasix at this time Idiopathic pulmonary fibrosis history of left neeta transplant in 2012 right lung with fibrosis -Continue myfortic, tacrolimus, Advair, singulair, albuterol,prednisone, Bactrim, acyclovir, posaconazole -inhaled tobramycin is nonformulary and patient can use if brought from home -azithromycin was stopped on this hospital stay because of prolonged QTC -Follows with Dr. Vandana Rodriguez at [facility], phone numbers of [phone] and [phone] for transplant center at [facility]; hospitalist had spoken with [facility] corporate safety coordinator Ambar Cruz and discussed that azithromycin being held at this time and that patient will need close follow up with transplant team after this hospital admission -because of episode of chest pain and hypoxia on 10/08/[address] scan of the lungs was performed 1. 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 Right lung volume loss 3. 12 cm right apical bulla 4. Mild mediastinal lymphadenopathy 5. Numerous left lung pulmonary nodules, some of which demonstrate a groundglass halo. In addition there are scattered pure groundglass opacities. -doxycycline in place of azithromycin as respiratory antibiotic started on 10/08/18 CKD (chronic kidney disease) stage 5, GFR less than 15 ml/min: AV fistula in place. Not on HD yet. Follows with Dr Sterling Baseline 2.4-3.2 -Monitor renal functions -creatinine on 10/06/18 is 3.25 -creatinine on 10/07/18 as 3.57 and lasix was held and 250 cc of normal saline given with repeat creatinine 3.4 -creatinine 2.49 on 10/08/18 -continue to monitor creatinine with lasix held Essential Hypertension Blood pressure controlled -continue beta cally -continue home dose doxasozin 8 mg History of hyperglycemia secondary to chronic steroid use HbA1c: 5.5 -Hold home humalog sliding scale -Novolog sliding scale per protocol -glucose controlled Hypomagnesemia: resolved GERD (gastroesophageal reflux disease): -continue PPI Mood disorder: -due to concern for potential drug interactions with clopidogrel and home medication of fluoxetine 40 mg daily, the anti-depressant was switched to Zoloft (sertraline) on this admission -Zoloft as lower dose starting on 10/07/18 to minimize potential interaction with QTC Chronic anemia: stable Thrombocytopenia: improved DVT ppx: SCDs Full Code Subjective patient breathing on room air. sleepy but awake for physical exam. denies pain. no acute complaints. no shortness of breath at this time Physical Exam Constitutional: WD/WN, vitals as above Eyes: PERRL, conjunctivae normal, anicteric sclerae EOM intact bilaterally ENMT: external ear and nose normal, oropharynx normal Neck: normal visual inspection Respiratory: normal respiratory effort Cardiovascular: Rate/Rhythm: regular rhythm and + bradycardic Gastrointestinal (Abdomen): normal bowel sounds, soft, nontender, no hepatosplenomegaly Musculoskeletal: Head/Neck/Chest: normocephalic and head atraumatic Neurologic: PERRL, EOMI, accommodation nl, no face palsy, no dysarthria CN's II-XI intact bilaterally Psychiatric: A+Ox3, euthymic affect Results & Data Vital Signs (Past 12 Hours) Vital Signs Temp Pulse Pulse Resp BP Pulse Ox 10/08/18 19:03 60 16 96 10/08/18 17:53 36.7 C 71 18 138/78 93 10/08/18 16:53 36.7 C 67 18 138/78 93 10/08/18 15:53 36.5 C 72 17 139/74 93 10/08/18 15:39 36.3 C L 78 18 130/67 99 10/08/18 14:53 36.7 C 85 16 149/69 H 95 10/08/18 14:23 36.6 C 74 17 146/79 H 96 10/08/18 13:58 73 18 98 10/08/18 13:53 36.7 C 73 16 146/76 H 94 10/08/18 13:38 36.5 C 76 18 153/78 H 93 10/08/18 13:23 36.5 C 73 18 146/73 H 95 10/08/18 13:08 36.2 C L 79 18 164/76 H 96 10/08/18 10:58 81 168/81 H 92 10/08/18 08:00 77 (1) ST elevation (STEMI) myocardial infarction Involved coronary artery: unspecified coronary artery Qualified Code(s): I21.3 - ST elevation (STEMI) myocardial infarction of unspecified site
[2018-10-08] MEDS: ROSUVASTATIN CALCIUM 20 MG TAB PO SCH (21:02)
[2018-10-08] MEDS: POSACONAZOLE 100 MG PO SCH (21:02)
[2018-10-08] MEDS: MONTELUKAST SODIUM 10 MG TABLET PO SCH (21:03)
[2018-10-08] MEDS: DOXYCYCLINE HYCLATE 100 MG CAP PO SCH (21:04)
[2018-10-09] MEDS: LEVALBUTEROL 1.25MG/0.5ML NEB INH SCH ×2 (01:45→06:57)
[2018-10-09] MEDS: IPRATROPIUM BROMIDE NEB SOLN 0.02% 2.5 ML VIAL INH SCH ×2 (01:45→06:57)
[2018-10-09 06:12] LABS: Hematocrit (blood only) 27.2 % (42-52); Hemoglobin 8.9 g/dL (14.0-18.0); Mean Corpuscular Hgb Conc 32.7 g/dL (32-36); Mean Corpuscular Volume 104.2 fL (80-100); Mean Platelet Volume 11.3 fL (7.4-10.4); Platelet Count 160 K/uL (130-400); RDW Coefficient of Variation 14.4 % (11.5-14.5); Red Blood Count 2.61 M/uL (4.7-6.1); White Blood Count 7.96 K/uL (4.8-10.8)
[2018-10-09 06:52] LABS: BUN Creatinine Ratio 13.7 (10-20); Calcium 8.3 mg/dl (8.5-10.1); Creatinine Clr Calc Pharmacy 19.2 ml/min; Est GFR (African American) 18.6; Est GFR (Non-African American) 16.1
[2018-10-09] MEDS: TOBRAMYCIN SULFATE INH SCH ×2 (06:58→19:11)
[2018-10-09] MEDS: FLUTICASONE/SALMETEROL (ADVAIR) 500/50 INH 14 PUFF INH SCH ×2 (07:59→19:47)
[2018-10-09] MEDS: ACYCLOVIR 400 MG TAB PO SCH (08:00)
[2018-10-09] MEDS: METOPROLOL SUCC 50MG EXT REL TAB PO SCH ×2 (08:00→19:49)
[2018-10-09] MEDS: CHOLECALCIFEROL 1,000 UNITS TAB PO SCH (08:00)
[2018-10-09] MEDS: ASPIRIN 81 MG ECTAB PO SCH (08:00)
[2018-10-09] MEDS: DOXYCYCLINE HYCLATE 100 MG CAP PO SCH ×2 (08:00→19:50)
[2018-10-09] MEDS: PANTOprazole 40 MG TAB PO SCH ×2 (08:00→19:49)
[2018-10-09] MEDS: TACROLIMUS 0.5 MG CAP PO SCH ×2 (08:00→19:50)
[2018-10-09] MEDS: MYCOPHENOLATE SODIUM 180 MG TAB PO SCH ×2 (08:00→19:50)
[2018-10-09] MEDS: CLOPIDOGREL BISULFATE 75 MG TAB PO SCH (08:00)
[2018-10-09] MEDS: SODIUM BICARBONATE 650 MG TAB PO SCH ×2 (08:01→19:48)
[2018-10-09] MEDS: LEVALBUTEROL TARTRATE 15 GM HFA.AER.AD INH SCH (08:01)
[2018-10-09] MEDS: INSULIN ASPART 100 UNITS/ML 3 ML PEN SC SCH ×4 (08:05→21:01)
[2018-10-09] MEDS: SERTRALINE HCL 50 MG TABLET PO SCH (08:07)
--- NOTE | 2018-10-09 09:01 | Hospitalist Progress Note ---
Date of Service October 09, 2018 Assessment & Plan (1) ST elevation (STEMI) myocardial infarction: ST elevation (STEMI) myocardial infarction: -admission on 09/24/18 for symptoms complaint of chest pain, left jaw pain, vomiting and diaphoresis and found to have ST Elevation myocardial infarction and patient was taken emergently to the [facility] and on cardiac cath was found to have Anterior STEMI/subtotal occlusion of mid LAD just after prior stent; Moderate non-culprit coronary artery disease (50% ostial RCA) and had PCI of mid LAD with single drug-eluting stent (3.0 x 15 mm Onyxoverlapped with distal aspect of prior stent) and subsequent ejection fraction of 30 to 35% because of the ischemic myopathy and ischemic CAD -hospital course complicated by: Paroxysmal atrial fibrillation Nonsustained ventricular tachycardia and Prolonged QTC on EKG (concern for nonsustained ventricular tachycardia overnight between 10/05/18 to 10/06/18 and because of prolonged QTC, azithromycin stopped, lowered the dose of Zoloft (sertraline) from 50 mg to 25 mg starting on 10/07/18) and also complicated by episode on 10/08/18 of of recurrent chest pain and dyspnea a second cardiac cath on 10/08/18 did not find evidence of re-infarction review of telemetry that patient has been in atrial fibrillation since 1:30 PM on 10/08/18 and the timing coincides after the second cardiac cath on this admission - heart rate controlled; Prolong QTC above 500 but less than 600 -will continue aspirin and clopidogrel, metoprolol succinate 50 mg BID, will need Life Vest ([employer] phone number [phone]) -will hold off further Lasix at this time Idiopathic pulmonary fibrosis history of left neeta transplant in 2012 right lung with fibrosis -Continue myfortic, tacrolimus, Advair, singulair, albuterol,prednisone, Bactrim, acyclovir, posaconazole -inhaled tobramycin is nonformulary and patient can use if brought from home -azithromycin was stopped on this hospital stay because of prolonged QTC -Follows with Dr. Vandana Rodriguez at [facility], phone numbers of [phone] and [phone] for transplant center at [facility]; hospitalist had spoken with [facility] medical records coordinator Ambar Cruz and discussed that azithromycin being held at this time and that patient will need close follow up with transplant team after this hospital admission -because of episode of chest pain and hypoxia on 10/08/[address] scan of the lungs was performed 1. 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 Right lung volume loss 3. 12 cm right apical bulla 4. Mild mediastinal lymphadenopathy 5. Numerous left lung pulmonary nodules, some of which demonstrate a groundglass halo. In addition there are scattered pure groundglass opacities. -doxycycline in place of azithromycin as respiratory antibiotic started on 10/08/18 -given that hypoxia has resolved and patient breathing comfortably, the plan at this time is likely to have patient remain on doxycycline antibiotic until follow up with his lung transplant pulmonary team at [facility] CKD (chronic kidney disease) stage 5, GFR less than 15 ml/min: AV fistula in place. Not on HD yet. Follows with Dr Sterling Baseline 2.4-3.2 -Monitor renal functions -creatinine on 10/06/18 is 3.25 -creatinine on 10/07/18 as 3.57 and lasix was held and 250 cc of normal saline given with repeat creatinine 3.4 -creatinine 3.49 on 10/08/18 -creatinine stable at 3.49 on 10/09/18 -continue to monitor creatinine with lasix held Essential Hypertension Blood pressure controlled -continue beta cally -continue home dose doxasozin 8 mg History of hyperglycemia secondary to chronic steroid use HbA1c: 5.5 -Hold home humalog sliding scale -Novolog sliding scale per protocol -glucose controlled Hypomagnesemia: resolved GERD (gastroesophageal reflux disease): -continue PPI Mood disorder: -due to concern for potential drug interactions with clopidogrel and home medication of fluoxetine 40 mg daily, the anti-depressant was switched to Zoloft (sertraline) on this admission -Zoloft as lower dose starting on 10/07/18 to minimize potential interaction with QTC Chronic anemia: stable Thrombocytopenia: improved DVT ppx: SCDs Full Code Subjective review of telemetry that patient has been in atrial fibrillation since 1:30 PM but heart rate is regular. this timing coincides after the second cardiac cath on this admission. Patient otherwise comfortable this morning and breathing comf ortably on room air. denies chest pain or shortness of breath. no abdomen pain. no vomiting Physical Exam Constitutional: WD/WN, vitals as above Eyes: PERRL, conjunctivae normal, anicteric sclerae EOM intact bilaterally ENMT: external ear and nose normal, oropharynx normal Neck: normal visual inspection Respiratory: normal respiratory effort Auscultation: + crackles (mild crackles of right lung) Cardiovascular: Rate/Rhythm: regular rate Gastrointestinal (Abdomen): normal bowel sounds, soft, nontender, no hepatosplenomegaly Musculoskeletal: Head/Neck/Chest: normocephalic and head atraumatic Neurologic: PERRL, EOMI, accommodation nl, no face palsy, no dysarthria CN's II-XI intact bilaterally Psychiatric: A+Ox3, euthymic affect Results & Data Vital Signs (Past 12 Hours) Vital Signs Temp Pulse Resp BP Pulse Ox 10/09/18 07:10 36.4 C L 70 22 156/75 H 99 10/09/18 06:58 44 L 16 99 10/09/18 03:39 36.4 C L 74 20 128/77 100 10/09/18 01:46 71 20 98 10/08/18 23:25 36.6 C 69 20 143/61 H 100 (1) ST elevation (STEMI) myocardial infarction Involved coronary artery: unspecified coronary artery Qualified Code(s): I21.3 - ST elevation (STEMI) myocardial infarction of unspecified site
[2018-10-09] MEDS: IRON SUCROSE 100 MG in 0.9 % SODIUM CHLORIDE 100 ML IV SCH (10:00)
--- NOTE | 2018-10-09 10:41 | Nephrology Progress Note ---
Date of Service October 09, 2018 Assessment & Plan (1) CKD (chronic kidney disease) stage 5, GFR less than 15 ml/min: -- Creatinine stable at 3.4 (baseline has been ~ 3.0). Volume status & electrolyte balance remain acceptable. No acute indication for HD today -- AVF has + bruit (placed 06/[address] Oconnell) -- Will monitor metabolic profile daily and continue to follow (2) ST elevation (STEMI) myocardial infarction: -- POD# 5 s/p PCI. Cardiac catheterization 10/08 revealed moderate ASCVD -- Patient to be fitted for Life Vest (3) CAD (coronary artery disease): -- Volume status acceptable -- No signs of decompensated CHF (4) Paroxysmal atrial fibrillation: -- Off anticoagulation secondary to reported bleeding and anemia in the past (5) HTN (hypertension): -- Treated with doxazosin and beta-cally therapy (6) Idiopathic pulmonary fibrosis: (7) Lung transplant status: -- History of lung transplant; S/P L lung transplant at [facility] in [address]. [address] Rodriguez at [facility] (8) Chronic anemia: -- Hgb stable -- Tsat slightly low, 200 mg IV Venofer daily started 10/07 Subjective Mr. Bill was seen & examined in the PCU this morning. He had chest pain yesterday and underwent cardiac catheterization. He did not require PCI. This morning Mr. Bill is free of chest discomfort. He voices no new medical concerns. Review of Systems Constitutional: no fever Respiratory: no dyspnea Cardiovascular: no chest pain Genitourinary: no urinary hesitancy Physical Exam Constitutional: + ill appearing Neck: trachea midline, no thyromegaly Respiratory: normal respiratory effort, lungs clear to auscultation Cardiovascular: Rate/Rhythm: regular rate and regular rhythm Gastrointestinal (Abdomen): normal bowel sounds, soft, nontender, no hepatosplenomegaly Results & Data Vital Signs (Past 12 Hours) Vital Signs Temp Pulse Resp BP Pulse Ox 10/09/18 07:10 36.4 C L 70 22 156/75 H 99 10/09/18 06:58 44 L 16 99 10/09/18 03:39 36.4 C L 74 20 128/77 100 10/09/18 01:46 71 20 98 10/08/18 23:25 36.6 C 69 20 143/61 H 100 Laboratory Results Laboratory Tests 10/07/18 10/09/18 10/09/18 06:46 05:46 05:46 WBC 7.96 Hgb 8.9 L Hct 27.2 L Plt Count 160 Sodium 144 Potassium 4.0 Chloride 114 H Carbon Dioxide 20 L BUN 48 H Creatinine 3.49 H Glucose 115 H Transferrin % Sat 16 L Ferritin 114.9 (1) ST elevation (STEMI) myocardial infarction Involved coronary artery: unspecified coronary artery Qualified Code(s): I21.3 - ST elevation (STEMI) myocardial infarction of unspecified site
--- NOTE | 2018-10-09 11:38 | Cardiology Progress Note ---
Date of Service October 09, 2018 Assessment & Plan (1) ST elevation (STEMI) myocardial infarction: repeat cardiac cath on 10/08 unremarkable unclear source of symptoms but now resolved will cont asa, plavix, crestor metoprolol obviously cannot start acei/arb at this time if bp remains elevated would start hydralazine/nitrates for LifeVest likely d/c in AM from cardiac standpoint will repeat a limited echo prior to discharge to assess wall motion (2) CAD (coronary artery disease): previous stents patent (3) Paroxysmal atrial fibrillation: hx of significant GI bleed on triple therapy has remained in sinus cont dual antiplatelet therapy HGB trending down? no obvious sign of bleed receiving iron supplementation (4) HTN (hypertension): controlled today (5) Ischemic cardiomyopathy: (6) CKD (chronic kidney disease) stage 5, GFR less than 15 ml/min: luckily, creat stable today nephrology following Subjective Pt seen and examined, states that he feels well. Breathing improved after cardiac cath yesterday. No recurrence of chest heaviness either. Feels as though he could go home today. LifeVest rep coming in today to fit patient. tele reviewed: sinus rhythm without arrhythmia or signficant ectopy. Review of Systems Review of Systems: All systems reviewed & are unremarkable except as noted in HPI & below Physical Exam Physical Exam: General: Awake, alert and oriented x 3. No acute distress. HEENT: Normocephalic, atraumatic. Pupils equal, round and reactive to light and accommodation. Extraocular muscles are intact. Anicteric sclera. Moist mucous membranes. Neck: No JVD. No bruit. Cardiovascular: Regular. Positive S-4. Normal S-1 and S-2. No S-3. No murmurs or rubs. Pulmonary: Clear to auscultation B/L. No rales, rhonchi or wheezing Abdomen: Bowel sounds x 4, soft. No rebound, guarding or tenderness. No organomegaly. Extremities: No clubbing, cyanosis or edema. +2 pedal pulses bilaterally. Skin: Warm and dry. Results & Data Vital Signs (Past 12 Hours) Vital Signs Temp Pulse Resp BP Pulse Ox 10/09/18 11:21 36.6 C 55 L 18 145/64 H 95 10/09/18 07:10 36.4 C L 70 22 156/75 H 99 10/09/18 06:58 44 L 16 99 10/09/18 03:39 36.4 C L 74 20 128/77 100 10/09/18 01:46 71 20 98 (1) ST elevation (STEMI) myocardial infarction Involved coronary artery: unspecified coronary artery Qualified Code(s): I21.3 - ST elevation (STEMI) myocardial infarction of unspecified site
[2018-10-09] MEDS: ACETAMINOPHEN 325 MG TAB PO PRN (17:06)
[2018-10-09] MEDS ORDERED: NAPHAZOLIN/PHENIRAMIN OPH SOLN 75 DROPS/5 ML BTL OP PRN (17:14)
[2018-10-09] MEDS: MONTELUKAST SODIUM 10 MG TABLET PO SCH (19:49)
[2018-10-09] MEDS: ROSUVASTATIN CALCIUM 20 MG TAB PO SCH (19:51)
[2018-10-09] MEDS: POSACONAZOLE 100 MG PO SCH (19:52)
[2018-10-10] MEDS ORDERED: ALBUT/IPRATROP 3MG/0.5MG NEB 3 ML VIAL NEB PRN (01:57)
[2018-10-10] MEDS ORDERED: LEVALBUTEROL 1.25MG/0.5ML NEB NEB PRN (02:05)
[2018-10-10] MEDS: NITROGLYCERIN SL 0.4 MG/TAB TAB SL PRN (03:08)
[2018-10-10] MEDS: HYDROmorphone INJ 0.5 MG/0.5 ML SYR IV PRN (03:17)
[2018-10-10] MEDS: NITROGLYCERIN 2% OINTMENT 30GM TUBE EXT SCH ×4 (03:29→20:32)
[2018-10-10] MEDS ORDERED: ONDANSETRON INJ 2 MG/ML 2 ML VIAL IV PRN (03:47)
--- NOTE | 2018-10-10 06:34 | XRay Report ---
XR chest 1V portable HISTORY: 77 years-old Male sob acute shortness of breath COMPARISON: Chest radiograph and CT chest 10/08/2018 TECHNIQUE: Portable AP view of the chest FINDINGS: Cardiomediastinal and hilar silhouettes are unchanged. Electronic devices are noted overlying the mid chest. No pneumothorax, or overt pulmonary edema. Trace pleural effusions. Bolus emphysema redemonst rated. Mild interstitial coarsening throughout the right lung redemonstrated. Extensive mixed interst itial and alveolar opacities throughout the right lung appear unchanged. Degenerative changes are not ed about the shoulders and spine. IMPRESSION: 1. Bullous emphysema. 2. Extensive mixed interstitial and alveolar opacities throughout the right lung appear unchanged. 3. Trace bilateral pleural effusions persist. The above report was generated using voice recognition software. It may contain grammatical, syntax o r spelling errors. Electronically signed by: Nathaniel Dan M.D. 10/10/2018 6:32 AM
[2018-10-10] MEDS: TOBRAMYCIN SULFATE INH SCH ×2 (07:13→18:59)
[2018-10-10] MEDS ORDERED: LEVALBUTEROL 1.25MG/0.5ML NEB NEB SCH (07:15)
[2018-10-10] MEDS ORDERED: methylPREDNISolone 40 MG in SYRINGE 0 ML IV STA (07:25)
--- NOTE | 2018-10-10 08:43 | Hospitalist Progress Note ---
Date of Service October 10, 2018 Assessment & Plan (1) ST elevation (STEMI) myocardial infarction: ST elevation (STEMI) myocardial infarction: -admission on 09/24/18 for symptoms complaint of chest pain, left jaw pain, vomiting and diaphoresis and found to have ST Elevation myocardial infarction and patient was taken emergently to the [facility] and on cardiac cath was found to have Anterior STEMI/subtotal occlusion of mid LAD just after prior stent; Moderate non-culprit coronary artery disease (50% ostial RCA) and had PCI of mid LAD with single drug-eluting stent (3.0 x 15 mm Onyxoverlapped with distal aspect of prior stent) and subsequent ejection fraction of 30 to 35% because of the ischemic myopathy and ischemic CAD -hospital course complicated by: Paroxysmal atrial fibrillation Nonsustained ventricular tachycardia and Prolonged QTC on EKG (concern for nonsustained ventricular tachycardia overnight between 10/05/18 to 10/06/18 and because of prolonged QTC, azithromycin stopped, lowered the dose of Zoloft (sertraline) from 50 mg to 25 mg starting on 10/07/18) and also complicated by episode on 10/08/18 of of recurrent chest pain and dyspnea a second cardiac cath on 10/08/18 did not find evidence of re-infarction review of telemetry that patient has been in atrial fibrillation since 1:30 PM on 10/08/18 and the timing coincides after the second cardiac cath on this admission - heart rate controlled; Prolong QTC above 500 but less than 600 -has been on aspirin and clopidogrel, metoprolol succinate 50 mg BID -fitted with Life Vest ([employer] phone number [phone]) starting 10/09/18 -at night of 10/10/18 and to AM of 10/11/18: patient had symptoms of chest pain an d became tachypneic. continues to be in atrial fibrillation with heart rate controlled. Patient required supplementary oxygen and plans fro BIPAP but as per nursing patient only able to put of BIPAP in the AM. from nocturnalist. Blood pressure also noted to be high with the respiratory distress. Patient did receive a stat dose nitro. Patient on BIPAP this AM with labored breathing. Able to speak in full sentences. denies acute pain currently. 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 Vandana Rodriguez at [facility], phone numbers of [phone] and [phone] for transplant center at [facility]; hospitalist had spoken with [facility] edi coordinator Ambar Cruz and discussed that azithromycin being held at this time and that patient will need close follow up with transplant team after this hospital admission -because of episode of chest pain and hypoxia on 10/08/[address] scan of the lungs was performed 1. 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 Right lung volume loss 3. 12 cm right apical bulla 4. Mild mediastinal lymphadenopathy 5. Numerous left lung pulmonary nodules, some of which demonstrate a groundglass halo. In addition there are scattered pure groundglass opacities. -doxycycline in place of azithromycin as respiratory antibiotic started on 10/08/18 -possible aspiration pneumonia to left lung 10/10/18 and with respiratory distress and will send to ICU for further management of respiratory status with BIPAP, high risk for intubation, solumedrol 40 mg IV x 1 ordered CKD (chronic kidney disease) stage 5, GFR less than 15 ml/min: AV fistula in place. Not on HD yet. Follows with Dr Sterling Baseline 2.4-3.2 -Monitor renal functions -creatinine on 10/06/18 is 3.25 -creatinine on 10/07/18 as 3.57 and lasix was held and 250 cc of normal saline given with repeat creatinine 3.4 -creatinine 3.49 on 10/08/18 -creatinine stable at 3.49 on 10/09/18 -follow renal function Essential Hypertension -continue beta cally -continue home dose doxasozin 8 mg -may need additional anti-hypertensive medications if blood pressure still high once breathing is stable, will need further management of blood pressure in ICU History of hyperglycemia secondary to chronic steroid use HbA1c: 5.5 -Hold home humalog sliding scale -Novolog sliding scale per protocol -glucose controlled History of skin malignancy -gets radiation treatment to forehead from [facility] radiation oncology -hold radiation therapy for now History of right eye prosthetic Hypomagnesemia: resolved GERD (gastroesophageal reflux disease): -continue PPI Mood disorder: -due to concern for potential drug interactions with clopidogrel and home medication of fluoxetine 40 mg daily, the anti-depressant was switched to Zoloft (sertraline) on this admission -Zoloft as lower dose starting on 10/07/18 to minimize potential interaction with QTC Chronic anemia: stable Thrombocytopenia: improved DVT ppx: SCDs Full Code Subjective Overnight as per nocturnalist, patient had symptoms of chest pain and became tachypneic. continues to be in atrial fibrillation with heart rate controlled. Patient required supplementary oxygen and plans fro BIPAP but as per nursing patient only able to put of BIPAP in the AM. from nocturnalist. Blood pressure also noted to be high with the respiratory distress. Patient did receive a stat dose nitro. Patient on BIPAP this AM with labored breathing. Able to speak in full sentences. denies acute pain currently. Discussed case with ICU physician on further management of respiratory status, possible that patient had an aspira tion pneumonia to left lung, high risk for intubation, will need further blood pressure management. Physical Exam Constitutional: WD/WN, vitals as above Eyes: PERRL, conjunctivae normal, anicteric sclerae EOM intact bilaterally ENMT: external ear and nose normal, oropharynx normal Neck: normal visual inspection Respiratory: + labored breathing Auscultation: + crackles (mild crackles of right lung) Cardiovascular: Rate/Rhythm: regular rate Gastrointestinal (Abdomen): normal bowel sounds, soft, nontender, no hepatosplenomegaly Musculoskeletal: Head/Neck/Chest: normocephalic and head atraumatic Neurologic: PERRL, EOMI, accommodation nl, no face palsy, no dysarthria CN's II-XI intact bilaterally Psychiatric: A+Ox3, euthymic affect Results & Data Vital Signs (Past 12 Hours) Vital Signs Temp Pulse Pulse Resp BP Pulse Ox 10/10/18 07:16 92 H 28 H 92 10/10/18 06:55 44 H 90 10/10/18 06:53 36.7 C 92 H 44 H 195/98 H 83 L 10/10/18 03:05 37.2 C 85 35 H 199/92 H 99 10/10/18 02:49 84 38 H 100 10/10/18 00:00 68 10/09/18 23:49 36.7 C 74 23 170/67 H 95 10/09/18 21:00 72 (1) ST elevation (STEMI) myocardial infarction Involved coronary artery: unspecified coronary artery Qualified Code(s): I21.3 - ST elevation (STEMI) myocardial infarction of unspecified site
[2018-10-10 08:50] LABS: Hemoglobin 9.7 g/dL (14.0-18.0); Mean Corpuscular Hgb Conc 32.3 g/dL (32-36); Mean Corpuscular Volume 106.8 fL (80-100); Mean Platelet Volume 11.3 fL (7.4-10.4); Platelet Count 165 K/uL (130-400); RDW Coefficient of Variation 14.4 % (11.5-14.5); RDW Standard Deviation 56.3 fL (36.4-46.3); Red Blood Count 2.81 M/uL (4.7-6.1); White Blood Count 11.05 K/uL (4.8-10.8)
[2018-10-10] MEDS: INSULIN ASPART 100 UNITS/ML 3 ML PEN SC SCH ×4 (08:50→20:39)
[2018-10-10 08:52] LABS: HCO3 ABG 18 mmol/L (19-24); Oxygen Saturation ABG 93.1 % (90-95); PCO2 ABG 32 mmHg (35-46); PO2 ABG 70 mm/Hg (80-95); pH ABG 7.37 (7.35-7.45)
[2018-10-10 08:53] LABS: Allen Test Pos (Pos)
[2018-10-10 09:13] LABS: BUN Creatinine Ratio 16.8 (10-20); Calcium 8.5 mg/dl (8.5-10.1); Creatinine Clr Calc Pharmacy 22.1 ml/min; Est GFR (African American) 22.1; Est GFR (Non-African American) 19.1; Potassium 3.7 mmol/L (3.5-5.1)
[2018-10-10 09:23] LABS: Troponin I 3.85 ng/ml (0-0.045)
[2018-10-10] MEDS: METOPROLOL SUCC 50MG EXT REL TAB PO SCH (09:48)
[2018-10-10] MEDS: CHOLECALCIFEROL 1,000 UNITS TAB PO SCH (09:48)
[2018-10-10] MEDS: ACYCLOVIR 400 MG TAB PO SCH (09:48)
[2018-10-10] MEDS: CLOPIDOGREL BISULFATE 75 MG TAB PO SCH (09:48)
[2018-10-10] MEDS: ASPIRIN 81 MG ECTAB PO SCH (09:48)
[2018-10-10] MEDS: SODIUM BICARBONATE 650 MG TAB PO SCH ×2 (09:48→20:32)
[2018-10-10] MEDS: predniSONE 5 MG TAB PO SCH (09:48)
[2018-10-10] MEDS: SULFA/TRIMETH 400/80MG TAB PO SCH (09:49)
[2018-10-10] MEDS: MYCOPHENOLATE SODIUM 180 MG TAB PO SCH ×2 (09:49→20:32)
[2018-10-10] MEDS: DOXYCYCLINE HYCLATE 100 MG CAP PO SCH ×2 (09:50→20:33)
[2018-10-10] MEDS: FLUTICASONE/SALMETEROL (ADVAIR) 500/50 INH 14 PUFF INH SCH ×2 (09:50→20:31)
[2018-10-10] MEDS: TACROLIMUS 0.5 MG CAP PO SCH ×2 (09:50→20:31)
[2018-10-10] MEDS: PANTOprazole 40 MG TAB PO SCH ×2 (09:50→20:32)
[2018-10-10] MEDS: SERTRALINE HCL 50 MG TABLET PO SCH (09:51)
--- NOTE | 2018-10-10 09:56 | Nephrology Progress Note ---
Date of Service October 10, 2018 Assessment & Plan (1) CKD (chronic kidney disease) stage 5, GFR less than 15 ml/min: -- Creatinine stable (baseline has been ~ 3.0). Volume status & electrolyte balance remain acceptable. No acute indication for HD today -- AVF has + bruit (placed 06/[address] Oconnell) -- Will monitor metabolic profile daily and continue to follow (2) ST elevation (STEMI) myocardial infarction: -- POD# 6 s/p PCI. Cardiac catheterization 10/08 revealed moderate ASCVD -- Patient has been fitted for Life Vest (3) CAD (coronary artery disease): -- Volume status acceptable -- No signs of decompensated CHF (4) Paroxysmal atrial fibrillation: -- Off anticoagulation secondary to reported bleeding and anemia in the past (5) HTN (hypertension): -- Treated with doxazosin and beta-cally therapy -- Agree w/ adding IV NTG or hydralazine while in ICU (6) Idiopathic pulmonary fibrosis: (7) Lung transplant status: -- History of lung transplant; S/P L lung transplant at [facility] in 2012. [address] Rodriguez at [facility] -- Possible aspiration pneumonia requiring transfer to ICU 10/10 (8) Chronic anemia: -- Hgb stable -- Tsat slightly low, 200 mg IV Venofer daily started 10/07 (9) S/P admission to ICU (intensive care unit): -- Transferred to ICU this am due to respiratory distress, possible aspiration. Plan of care discussed w/ primary service and Cardiology. 30 min critical care time provided Subjective Mr. Pantoja was seen & examined in the ICU this morning. Plan of care discussed w/ primary service and Cardiology. Mr. Pantoja became acutely tachypneic this morning. There is concern that he may have suffered aspiration into his lungs. He is currently on BiPAP therapy w/ Life Vest in place. Review of Systems Review of Systems: Patient was unable to participate in ROS Physical Exam Constitutional: + ill appearing On BiPAP Neck: trachea midline, no thyromegaly Respiratory: + tachypneic Cardiovascular: Rate/Rhythm: regular rhythm and + tachycardic Extremities: + AV fistula (+ bruit); no edema Gastrointestinal (Abdomen): normal bowel sounds, soft, nontender, no hepatosplenomegaly Results & Data Vital Signs (Past 12 Hours) Vital Signs Temp Pulse Pulse Resp BP Pulse Ox 10/10/18 09:06 85 37 H 94 10/10/18 09:02 80 37 H 95 10/10/18 08:00 97 H 10/10/18 07:35 83 35 H 96 10/10/18 07:16 92 H 28 H 92 10/10/18 06:55 44 H 90 10/10/18 06:53 36.7 C 92 H 44 H 195/98 H 83 L 10/10/18 03:05 37.2 C 85 35 H 199/92 H 99 10/10/18 02:49 84 38 H 100 10/10/18 00:00 68 10/09/18 23:49 36.7 C 74 23 170/67 H 95 Laboratory Results Laboratory Tests 10/10/18 10/10/18 08:36 08:36 WBC 11.05 H Hgb 9.7 L Hct 30.0 L Plt Count 165 Sodium 142 Potassium 3.7 Chloride 113 H Carbon Dioxide 18 L BUN 51 H Creatinine 3.03 H D Glucose 143 H Diagnostic Findings CXR 10/10: 1. Bullous emphysema. 2. Extensive mixed interstitial and alveolar opacities throughout the right lung appear unchanged. 3. Trace bilateral pleural effusions persist. (1) ST elevation (STEMI) myocardial infarction Involved coronary artery: unspecified coronary artery Qualified Code(s): I21.3 - ST elevation (STEMI) myocardial infarction of unspecified site
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
[2018-10-10] MEDS: LEVALBUTEROL 1.25MG/0.5ML NEB NEB SCH ×2 (14:20→19:00)
--- NOTE | 2018-10-10 15:26 | Cardiology Progress Note ---
Date of Service October 10, 2018 Assessment & Plan (1) ST elevation (STEMI) myocardial infarction: repeat cardiac cath on 10/08 unremarkable will cont asa, plavix, crestor metoprolol obviously cannot start acei/arb at this time if bp remains elevated would start hydralazine/nitrates LifeVest to be worn upon discharge. no significant change on limited echo today (2) CAD (coronary artery disease): previous stents patent (3) Paroxysmal atrial fibrillation: hx of significant GI bleed on triple therapy now in afib rates controlled QT has normalized will start sotalol in attempt at rhythm control given desire to remain off anticoagulation will follow QT closely obviously, would not use amio given idiopathic pulmonary fibrosis (4) HTN (hypertension): controlled today (5) Ischemic cardiomyopathy: (6) CKD (chronic kidney disease) stage 5, GFR less than 15 ml/min: luckily, creat stable today nephrology following Subjective Pt seen and examined, events of this AM reviewed. Currently resting comfortable on NC. States that he's feeling well. Denies cp, sob, palpitations, lightheadedness or dizziness. tele reviewed: atrial fibrillation rate controlled. Review of Systems Review of Systems: All systems reviewed & are unremarkable except as noted in HPI & below Physical Exam Physical Exam: General: Awake, alert and oriented x 3. No acute distress. HEENT: Normocephalic, atraumatic. Pupils equal, round and reactive to light and accommodation. Extraocular muscles are intact. Anicteric sclera. Moist mucous membranes. Neck: No JVD. No bruit. Cardiovascular: irregularly irregular, unable to appreciate murmur, rub or gallop. Pulmonary: Coarse diffusely. no rales or wheezing Abdomen: Bowel sounds x 4, soft. No rebound, guarding or tenderness. No organomegaly. Extremities: No clubbing, cyanosis or edema. +2 pedal pulses bilaterally. Skin: Warm and dry. Results & Data Vital Signs (Past 12 Hours) Vital Signs Temp Pulse Pulse Resp BP BP Pulse Ox 10/10/18 14:20 80 28 H 94 10/10/18 14:00 84 24 151/83 H 94 10/10/18 13:00 77 18 151/85 H 93 10/10/18 12:00 37.2 C 73 24 150/82 H 94 10/10/18 11:00 79 20 149/75 H 92 10/10/18 10:05 78 35 H 91 10/10/18 10:00 86 32 H 150/83 H 90 10/10/18 09:30 37.2 C 84 165/85 H 92 10/10/18 09:06 85 37 H 94 10/10/18 09:02 80 37 H 95 10/10/18 08:00 97 H 10/10/18 07:35 83 35 H 96 10/10/18 07:16 92 H 28 H 92 10/10/18 06:55 44 H 90 10/10/18 06:53 36.7 C 92 H 44 H 195/98 H 83 L (1) ST elevation (STEMI) myocardial infarction Involved coronary artery: unspecified coronary artery Qualified Code(s): I21.3 - ST elevation (STEMI) myocardial infarction of unspecified site
[2018-10-10] MEDS: POSACONAZOLE 100 MG PO SCH (20:32)
[2018-10-10] MEDS: MONTELUKAST SODIUM 10 MG TABLET PO SCH (20:32)
[2018-10-10] MEDS: ROSUVASTATIN CALCIUM 20 MG TAB PO SCH (20:32)
[2018-10-10] MEDS: SOTALOL HCL 80 MG TAB PO SCH (20:32)
[2018-10-11] MEDS: LEVALBUTEROL 1.25MG/0.5ML NEB NEB SCH ×4 (02:03→19:46)
[2018-10-11] MEDS: NITROGLYCERIN 2% OINTMENT 30GM TUBE EXT SCH ×3 (03:39→16:29)
[2018-10-11 04:42] LABS: Hematocrit (blood only) 27.7 % (42-52); Mean Corpuscular Hgb Conc 32.5 g/dL (32-36); Mean Corpuscular Volume 104.5 fL (80-100); Mean Platelet Volume 11.7 fL (7.4-10.4); Platelet Count 180 K/uL (130-400); RDW Coefficient of Variation 14.4 % (11.5-14.5); RDW Standard Deviation 54.7 fL (36.4-46.3); Red Blood Count 2.65 M/uL (4.7-6.1)
[2018-10-11 05:02] LABS: BUN Creatinine Ratio 17.7 (10-20); Blood Urea Nitrogen 56 mg/dl (7-18); Calcium 8.4 mg/dl (8.5-10.1); Carbon Dioxide 21 mmol/L (21-32); Chloride 110 mmol/L (98-107); Creatinine Clr Calc Pharmacy 20.9 ml/min; Est GFR (African American) 20.7; Est GFR (Non-African American) 17.8; Glucose 136 mg/dl (70-99); Potassium 4.1 mmol/L (3.5-5.1); Sodium 138 mmol/L (136-145)
[2018-10-11 05:06] LABS: NT Pro B Type Natriuretic Pept > 35000 pg/ml (0-1800)
[2018-10-11] MEDS: FLUTICASONE/SALMETEROL (ADVAIR) 500/50 INH 14 PUFF INH SCH ×2 (07:46→20:27)
[2018-10-11] MEDS: ASPIRIN 81 MG ECTAB PO SCH (07:53)
[2018-10-11] MEDS: CLOPIDOGREL BISULFATE 75 MG TAB PO SCH (07:53)
[2018-10-11] MEDS: PANTOprazole 40 MG TAB PO SCH ×2 (07:54→20:30)
[2018-10-11] MEDS: ACYCLOVIR 400 MG TAB PO SCH (07:54)
[2018-10-11] MEDS: TACROLIMUS 0.5 MG CAP PO SCH ×2 (07:54→20:29)
[2018-10-11] MEDS: MYCOPHENOLATE SODIUM 180 MG TAB PO SCH ×2 (07:55→20:28)
[2018-10-11] MEDS: predniSONE 5 MG TAB PO SCH (07:55)
[2018-10-11] MEDS: SOTALOL HCL 80 MG TAB PO SCH (07:55)
[2018-10-11] MEDS: SERTRALINE HCL 50 MG TABLET PO SCH (07:56)
[2018-10-11] MEDS: CHOLECALCIFEROL 1,000 UNITS TAB PO SCH (07:56)
[2018-10-11] MEDS: DOXYCYCLINE HYCLATE 100 MG CAP PO SCH ×2 (07:56→20:29)
[2018-10-11] MEDS: SODIUM BICARBONATE 650 MG TAB PO SCH ×2 (07:56→20:28)
[2018-10-11] MEDS: INSULIN ASPART 100 UNITS/ML 3 ML PEN SC SCH ×4 (08:01→20:22)
--- NOTE | 2018-10-11 09:55 | Nephrology Progress Note ---
Date of Service October 11, 2018 Assessment & Plan (1) CKD (chronic kidney disease) stage 5, GFR less than 15 ml/min: -- Creatinine stable (baseline has been ~ 3.0). Volume status & electrolyte balance remain acceptable. No acute indication for HD today -- AVF has + bruit (placed 06/[address] Oconnell) -- Will monitor metabolic profile daily and continue to follow (2) ST elevation (STEMI) myocardial infarction: -- POD# 7 s/p PCI. Cardiac catheterization 10/08 revealed moderate ASCVD -- Patient has been fitted for Life Vest (3) Paroxysmal atrial fibrillation: -- Off anticoagulation secondary to reported bleeding and anemia in the past (4) HTN (hypertension): -- Treated with doxazosin and beta-cally therapy (5) Lung transplant status: -- History of IPF requiring L lung transplant at [facility] in [address]. [address] Rodriguez at [facility] -- Possible aspiration pneumonia requiring transfer to ICU 10/10 (6) Chronic anemia: -- Hgb stable -- Tsat slightly low, 200 mg IV Venofer daily started 10/07 Subjective Mr. Bill was seen and examined in the ICU this morning. He was sitting up in a chair breathing comfortably on high flow nasal cannula. He has a life vest in place. Mr. Bill currently denies fever, angina, productive cough or uremic symptoms. Review of Systems Constitutional: no fever Respiratory: no dyspnea Cardiovascular: no chest pain Gastrointestinal: no abdominal pain and no diarrhea/loose stools Physical Exam Constitutional: + ill appearing Neck: trachea midline, no thyromegaly Respiratory: normal respiratory effort, lungs clear to auscultation normal respiratory effort Cardiovascular: Rate/Rhythm: + tachycardic and + irregularly irregular Extremities: + AV fistula (+ bruit); no edema Gastrointestinal (Abdomen): normal bowel sounds, soft, nontender, no hepatosplenomegaly Results & Data Vital Signs (Past 12 Hours) Vital Signs Temp Pulse Pulse Resp BP Pulse Ox 10/11/18 07:34 62 26 H 100 10/11/18 05:00 61 61 31 H 150/75 H 99 10/11/18 04:00 36.7 C 66 66 20 145/71 H 90 10/11/18 03:00 37 C 69 69 24 137/60 93 10/11/18 02:04 66 18 96 10/11/18 02:00 61 61 22 106/67 92 10/11/18 01:00 62 62 25 H 100/54 L 98 10/11/18 00:00 36.8 C 61 61 31 H 104/54 L 98 10/10/18 23:00 55 L 55 L 16 127/66 97 10/10/18 22:00 56 L 56 L 17 136/69 94 Laboratory Results Laboratory Tests 10/11/18 10/11/18 04:25 04:25 WBC 9.70 Hgb 9.0 L Hct 27.7 L Plt Count 180 Sodium 138 Potassium 4.1 Chloride 110 H Carbon Dioxide 21 BUN 56 H Creatinine 3.20 H Glucose 136 H (1) ST elevation (STEMI) myocardial infarction Involved coronary artery: unspecified coronary artery Qualified Code(s): I21.3 - ST elevation (STEMI) myocardial infarction of unspecified site
--- NOTE | 2018-10-11 10:48 | Cardiology Progress Note ---
Date of Service October 11, 2018 Assessment & Plan (1) ST elevation (STEMI) myocardial infarction: repeat cardiac cath on 10/08 unremarkable will cont asa, plavix, crestor metoprolol obviously cannot start acei/arb at this time if bp remains elevated would start hydralazine/nitrates LifeVest to be worn upon discharge. no significant change on limited echo today (2) CAD (coronary artery disease): previous stents patent (3) Paroxysmal atrial fibrillation: hx of significant GI bleed on triple therapy now in afib rates controlled unfortunately, QTc has significantly increased had adjusted dose of sotalol for renal function, however, given QT prolongation will hold for now very hesitant to start anticoagulation given hx of GIB and need for uninterrupted dual antiplatelets (4) HTN (hypertension): controlled today (5) Ischemic cardiomyopathy: (6) CKD (chronic kidney disease) stage 5, GFR less than 15 ml/min: luckily, creat stable today nephrology following Subjective Pt seen and examined, oob in chair on high flow O2. States that he feels well. No sob, cp, palpitations, lightheadedness or dizziness. tele reviewed: afib rate controlled EKG: afib with QTc increased to 489ms from 408ms on 10/10 Review of Systems Review of Systems: All systems reviewed & are unremarkable except as noted in HPI & below Physical Exam Physical Exam: General: Awake, alert and oriented x 3. No acute distress. HEENT: Normocephalic, atraumatic. Pupils equal, round and reactive to light and accommodation. Extraocular muscles are intact. Anicteric sclera. Moist mucous membranes. Neck: No JVD. No bruit. Cardiovascular: irregularly irregular, unable to appreciate murmur, rub or gallop. Pulmonary: scattered rhonchi without wheeze or rales Abdomen: Bowel sounds x 4, soft. No rebound, guarding or tenderness. No organomegaly. Extremities: No clubbing, cyanosis or edema. +2 pedal pulses bilaterally. Skin: Warm and dry. Results & Data Vital Signs (Past 12 Hours) Vital Signs Temp Pulse Pulse Pulse Resp BP BP 10/11/18 09:00 63 10/11/18 08:02 64 129/63 10/11/18 08:00 36.4 C L 64 10/11/18 07:34 62 26 H 10/11/18 07:02 57 L 10/11/18 05:00 61 61 31 H 150/75 H 10/11/18 04:00 36.7 C 66 66 20 145/71 H 10/11/18 03:00 37 C 69 69 24 137/60 10/11/18 02:04 66 18 10/11/18 02:00 61 61 22 106/67 10/11/18 01:00 62 62 25 H 100/54 L 10/11/18 00:00 36.8 C 61 61 31 H 104/54 L 10/10/18 23:00 55 L 55 L 16 127/66 Pulse Ox 10/11/18 09:00 99 10/11/18 08:02 84 L 10/11/18 08:00 10/11/18 07:34 100 10/11/18 07:02 100 10/11/18 05:00 99 10/11/18 04:00 90 10/11/18 03:00 93 10/11/18 02:04 96 10/11/18 02:00 92 10/11/18 01:00 98 10/11/18 00:00 98 10/10/18 23:00 97 (1) ST elevation (STEMI) myocardial infarction Involved coronary artery: unspecified coronary artery Qualified Code(s): I21.3 - ST elevation (STEMI) myocardial infarction of unspecified site
[2018-10-11] MEDS: TOBRAMYCIN SULFATE INH SCH ×2 (14:26→20:00)
--- NOTE | 2018-10-11 16:33 | Hospitalist Progress Note ---
Date of Service October 11, 2018 Assessment & Plan (1) ST elevation (STEMI) myocardial infarction: ST elevation (STEMI) myocardial infarction: -admission on 09/24/18 for symptoms complaint of chest pain, left jaw pain, vomiting and diaphoresis and found to have ST Elevation myocardial infarction and patient was taken emergently to the [facility] and on cardiac cath was found to have Anterior STEMI/subtotal occlusion of mid LAD just after prior stent; Moderate non-culprit coronary artery disease (50% ostial RCA) and had PCI of mid LAD with single drug-eluting stent (3.0 x 15 mm Onyxoverlapped with distal aspect of prior stent) and subsequent ejection fraction of 30 to 35% because of the ischemic myopathy and ischemic CAD -hospital course complicated by: Paroxysmal atrial fibrillation Nonsustained ventricular tachycardia and Prolonged QTC on EKG (concern for nonsustained ventricular tachycardia overnight between 10/05/18 to 10/06/18 and because of prolonged QTC, azithromycin stopped, lowered the dose of Zoloft (sertraline) from 50 mg to 25 mg starting on 10/07/18) and also complicated by episode on 10/08/18 of of recurrent chest pain and dyspnea a second cardiac cath on 10/08/18 did not find evidence of re-infarction review of telemetry that patient has been in atrial fibrillation since 1:30 PM on 10/08/18 and the timing coincides after the second cardiac cath on this admission - heart rate controlled; Prolong QTC above 500 but less than 600 -has been on aspirin and clopidogrel, metoprolol succinate 50 mg BID -fitted with Life Vest ([employer] phone number [phone]) starting 10/09/18 -at night of 10/10/18 and to AM of 10/11/18: patient had symptoms of chest pain and became tachypneic. continues to be in atrial fibrillation with heart rate controlled. Patient required supplementary oxygen and plans fro BIPAP but as per nursing patient only able to put of BIPAP in the AM. patient was further managed in the ICU -10/11/18: aspiration pneumonia/pneumonitis to left lung 10/10/18 and with respiratory distress and was sent to the ICU, would continue doxycycline and adjust antibiotics based on clinical status and future lung imaging; patient on nasal cannula but not in distress can be transferred out of ICU Acute respiratory failure with hypoxia -multifactorial ST elevation (STEMI) myocardial infarction Idiopathic pulmonary fibrosis with fibrosis of right lung Transplanted left lung with aspiration pneumonia/pneumonitis -patient on room air at home, will need to determine whether patient needs home oxygen after medical stability Idiopathic pulmonary fibrosis history of left lung transplant in 2012 right lung with fibrosis -Continue myfortic, tacrolimus, Advair, singulair, albuterol,prednisone, Bactrim, acyclovir, posaconazole -inhaled tobramycin were given in hospital stay as part of patient's home medications -azithromycin was stopped on this hospital stay because of prolonged QTC -Follows with Dr. Vandana Rodriguez at [facility], phone numbers of [phone] and [phone] for transplant center at [facility]; hospitalist had spoken with [facility] early childhood services coordinator Ambar Cruz and discussed that azithromycin being held at this time and that patient will need close follow up with transplant team after this hospital admission -because of episode of chest pain and hypoxia on 10/08/[address] scan of the lungs was performed 1. 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 Right lung volume loss 3. 12 cm right apical bulla 4. Mild mediastinal lymphadenopathy 5. Numerous left lung pulmonary nodules, some of which demonstrate a groundglass halo. In addition there are scattered pure groundglass opacities. -doxycycline in place of azithromycin as respiratory antibiotic started on 10/08/18 -aspiration pneumonia/pneumonitis to left lung 10/10/18 and with respiratory distress and was sent to the ICU, would continue doxycycline and adjust antibiotics based on clinical status and future lung imaging CKD (chronic kidney disease) stage 5, GFR less than 15 ml/min: AV fistula in place. Not on HD yet. Follows with Dr Sterling Baseline 2.4-3.2 currently creatinine at baseline Essential Hypertension -continue beta claly -continue home dose doxasozin 8 mg -avoiding CRISSY inhibitor for now due to renal function, will defer to cardiology service on blood pressure medications and if further diuretic needed as ejection fraction is 30 to 35% History of hyperglycemia secondary to chronic steroid use HbA1c: 5.5 -Hold home humalog sliding scale -Novolog sliding scale per protocol -glucose controlled History of skin malignancy -gets radiation treatment to forehead from [facility] radiation oncology -hold radiation therapy for now History of right eye prosthetic Hypomagnesemia: resolved GERD (gastroesophageal reflux disease): -continue PPI Mood disorder: -due to concern for potential drug interactions with clopidogrel and home medication of fluoxetine 40 mg daily, the anti-depressant was switched to Zoloft (sertraline) on this admission -Zoloft as lower dose starting on 10/07/18 to minimize potential interaction with QTC Chronic anemia: stable Thrombocytopenia: improved DVT ppx: [facility]CD[facility] phone number: [phone] Full Code Subjective patient on nasal cannula. has Lifevest. watching TV comfortably while in ICU. denies acute pain. no vomiting. no lightheadedness. no dizziness Physical Exam Constitutional: WD/WN, vitals as above Eyes: PERRL, conjunctivae normal, anicteric sclerae EOM intact bilaterally ENMT: external ear and nose normal, oropharynx normal Neck: normal visual inspection Respiratory: normal respiratory effort, lungs clear to auscultation + labored breathing Auscultation: + crackles (mild crackles of right lung) Cardiovascular: Rate/Rhythm: regular rate Gastrointestinal (Abdomen): normal bowel sounds, soft, nontender, no hepatosplenomegaly Musculoskeletal: Head/Neck/Chest: normocephalic and head atraumatic Neurologic: PERRL, EOMI, accommodation nl, no face palsy, no dysarthria CN's II-XI intact bilaterally Psychiatric: A+Ox3, euthymic affect Results & Data Vital Signs (Past 12 Hours) Vital Signs Temp Pulse Pulse Pulse Resp BP BP 10/11/18 16:18 55 L 10/11/18 14:00 55 L 28 H 10/11/18 13:00 60 25 H 10/11/18 12:00 36.5 C 67 10/11/18 11:00 59 L 10/11/18 10:00 61 10/11/18 09:00 63 10/11/18 08:02 64 129/63 10/11/18 08:00 36.4 C L 64 10/11/18 07:34 62 26 H 10/11/18 07:02 57 L 10/11/18 05:00 61 61 31 H 150/75 H Pulse Ox 10/11/18 16:18 10/11/18 14:00 100 10/11/18 13:00 94 10/11/18 12:00 10/11/18 11:00 99 10/11/18 10:00 95 10/11/18 09:00 99 10/11/18 08:02 84 L 10/11/18 08:00 10/11/18 07:34 100 10/11/18 07:02 100 10/11/18 05:00 99 (1) ST elevation (STEMI) myocardial infarction Involved coronary artery: unspecified coronary artery Qualified Code(s): I21. 3 - ST elevation (STEMI) myocardial infarction of unspecified site
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
[2018-10-11] MEDS ORDERED: LEVALBUTEROL HCL 1.25 MG/3 ML NEB NEB PRN (19:57)
[2018-10-11] MEDS: POSACONAZOLE 100 MG PO SCH (20:27)
[2018-10-11] MEDS: ROSUVASTATIN CALCIUM 20 MG TAB PO SCH (20:28)
[2018-10-11] MEDS: MONTELUKAST SODIUM 10 MG TABLET PO SCH (20:28)
[2018-10-11] MEDS: LEVALBUTEROL HCL 1.25 MG/3 ML NEB NEB SCH (21:23)
[2018-10-12] MEDS: LEVALBUTEROL HCL 1.25 MG/3 ML NEB NEB SCH ×4 (01:32→19:54)
--- NOTE | 2018-10-12 06:31 | XRay Report ---
XR chest 1V portable HISTORY: 77 years-old Male sob acute shortness of breath COMPARISON: Chest radiograph 10/10/2018 TECHNIQUE: Portable AP view of the chest FINDINGS: Cardiomediastinal and hilar silhouettes are unchanged. Electronic devices are again noted projecting over the chest. Severe bullous emphysema redemonstrated. Suggestion of trace pleural effusions. Mixed interstitial and alveolar opacities throughout the right lung appear unchanged. Mild chronic interst itial coarsening throughout the left lung. Degenerative changes of the shoulders and spine. No pneumo thorax identified. IMPRESSION: 1. Severe bullous emphysema. 2. Mixed interstitial and alveolar opacities throughout the right lung appear unchanged. 3. Trace pleural effusions. The above report was generated using voice recognition software. It may contain grammatical, syntax o r spelling errors. Electronically signed by: Nathaniel Dan M.D. 10/12/2018 6:30 AM
[2018-10-12 07:14] LABS: Hematocrit (blood only) 29.4 % (42-52); Hemoglobin 9.5 g/dL (14.0-18.0); Mean Corpuscular Hgb Conc 32.3 g/dL (32-36); Mean Corpuscular Volume 104.3 fL (80-100); Mean Platelet Volume 11.6 fL (7.4-10.4); Platelet Count 204 K/uL (130-400); RDW Coefficient of Variation 14.3 % (11.5-14.5); RDW Standard Deviation 54.3 fL (36.4-46.3); Red Blood Count 2.82 M/uL (4.7-6.1); White Blood Count 9.41 K/uL (4.8-10.8)
[2018-10-12] MEDS: TOBRAMYCIN SULFATE INH SCH ×2 (07:20→20:07)
[2018-10-12 07:38] LABS: Calcium 8.9 mg/dl (8.5-10.1); Est GFR (African American) 18.4; Est GFR (Non-African American) 15.9; Potassium 3.9 mmol/L (3.5-5.1)
[2018-10-12] MEDS: INSULIN ASPART 100 UNITS/ML 3 ML PEN SC SCH ×3 (08:00→19:19)
[2018-10-12] MEDS ORDERED: SOTALOL HCL 80 MG TAB PO SCH ×2 (09:00)
[2018-10-12] MEDS ORDERED: SODIUM CHLORIDE 0.9% 1000ML 1,000 ML IV SCH (10:30)
--- NOTE | 2018-10-12 10:36 | Nephrology Progress Note ---
Date of Service October 12, 2018 Assessment & Plan (1) CKD (chronic kidney disease) stage 5, GFR less than 15 ml/min: -- Creatinine has risen from 3.0 to 3.5. Patient appears clinically volume contracted (poor skin turgor, dry MM). Pulmonary exam is difficult to interpret due to lung transplant. Patient does have bibasilar raled. CXR film reviewed today does show prominent pulmonary vasculature but this is improved compared to prior images. Will provide 1 L 0.9NS today and recheck PRP in am -- AVF has + bruit (placed 06/[address] Oconnell) (2) ST elevation (STEMI) myocardial infarction: -- POD# 8 s/p PCI. Cardiac catheterization 10/08 revealed moderate ASCVD -- Patient is wearing Life Vest due to LVEF 30 - 35% (3) Paroxysmal atrial fibrillation: -- Off anticoagulation secondary to reported bleeding and anemia in the past (4) HTN (hypertension): -- Treated with doxazosin and beta-cally therapy (5) Lung transplant status: -- History of IPF requiring L lung transplant at [facility] in [address]. [address] Rodriguez at [facility] -- Possible aspiration pneumonia requiring transfer to ICU 10/10 (6) Chronic anemia: -- Hgb stable -- Tsat slightly low, 200 mg IV Venofer daily started 10/07. Will d/c Venofer after next dose (1 g infusion completed) Subjective Mr. Bill was seen & examined in his hospital room this morning. He was acutely dyspneic overnight. This morning he is breathing comfortably on BiPAP therapy. Review of Systems Constitutional: no fever Respiratory: no cough and no chest congestion Cardiovascular: no chest pain at rest Gastrointestinal: no diarrhea/loose stools Physical Exam Constitutional: + ill appearing Neck: trachea midline, no thyromegaly Respiratory: normal respiratory effort, lungs clear to auscultation normal respiratory effort Cardiovascular: Rate/Rhythm: + tachycardic and + irregularly irregular Extremities: + AV fistula (+ bruit); no edema Gastrointestinal (Abdomen): normal bowel sounds, soft, nontender, no hepatosplenomegaly Results & Data Vital Signs (Past 12 Hours) Vital Signs Temp Pulse Pulse Resp BP Pulse Ox 10/12/18 07:12 62 62 32 H 94 10/12/18 06:53 36.4 C L 66 22 168/72 H 98 10/12/18 05:02 67 34 H 97 10/12/18 04:47 76 22 88 L 10/12/18 04:30 83 L 10/12/18 04:00 36.6 C 71 24 172/77 H 80 L 10/12/18 01:32 76 16 95 10/11/18 23:10 36.8 C 62 18 147/72 H 95 Laboratory Results Laboratory Tests 10/12/18 10/12/18 06:35 06:35 WBC 9.41 Hgb 9.5 L Hct 29.4 L Plt Count 204 Sodium 140 Potassium 3.9 Chloride 110 H Carbon Dioxide 19 L BUN 70 H Creatinine 3.52 H D Glucose 103 H (1) ST elevation (STEMI) myocardial infarction Involved coronary artery: unspecified coronary artery Qualified Code(s): I21.3 - ST elevation (STEMI) myocardial infarction of unspecified site
--- NOTE | 2018-10-12 12:00 | Cardiology Progress Note ---
Date of Service October 12, 2018 Assessment & Plan (1) ST elevation (STEMI) myocardial infarction: repeat cardiac cath on 10/08 unremarkable will cont asa, plavix, crestor metoprolol obviously cannot start acei/arb at this time if bp remains elevated would start hydralazine/nitrates LifeVest to be worn upon discharge. no significant change on limited echo today (2) CAD (coronary artery disease): previous stents patent (3) Paroxysmal atrial fibrillation: hx of significant GI bleed on triple therapy luckily has converted to sinus rhythm may consider sotalol 40mg daily if renal function improves but will hold off for now (4) HTN (hypertension): elevated today but has been labile will cont to monitor for now would use hydralzine and nitrates if remains elevated (5) Ischemic cardiomyopathy: (6) CKD (chronic kidney disease) stage 5, GFR less than 15 ml/min: luckily, creat stable today nephrology following Subjective Pt seen and examined, events of early this AM reviewed with nursing staff. Pt currently on bipap but states still having some difficulty breathing. Denies cp, palpitations, lightheadedness or dizziness. tele reviewed: converted to sinus, QTc of 465 Review of Systems Review of Systems: All systems reviewed & are unremarkable except as noted in HPI & below Physical Exam Physical Exam: General: Awake, alert and oriented x 3. No acute distress. HEENT: Normocephalic, atraumatic. Pupils equal, round and reactive to light and accommodation. Extraocular muscles are intact. Anicteric sclera. Moist mucous membranes. Neck: No JVD. No bruit. Cardiovascular: Regular. Positive S-4. Normal S-1 and S-2. No S-3. 3/6 mid to late systolic ejection murmur, greatest at the right sternal border, second intercostal space with radiation to the bilateral carotids. No rubs. Pulmonary: Poor air movement, scattered rhonchi diffusely Abdomen: Bowel sounds x 4, soft. No rebound, guarding or tenderness. No organomegaly. Extremities: No clubbing, cyanosis or edema. +2 pedal pulses bilaterally. Skin: Warm and dry. Results & Data Vital Signs (Past 12 Hours) Vital Signs Temp Pulse Pulse Resp BP Pulse Ox 10/12/18 07:12 62 62 32 H 94 10/12/18 06:53 36.4 C L 66 22 168/72 H 98 10/12/18 05:02 67 34 H 97 10/12/18 04:47 76 22 88 L 10/12/18 04:30 83 L 10/12/18 04:00 36.6 C 71 24 172/77 H 80 L 10/12/18 01:32 76 16 95 (1) ST elevation (STEMI) myocardial infarction Involved coronary artery: unspecified coronary artery Qualified Code(s): I21.3 - ST elevation (STEMI) myocardial infarction of unspecified site
--- NOTE | 2018-10-12 12:27 | Pulmonology Progress Note ---
Date of Service October 12, 2018 Assessment & Plan (1) Acute hypoxemic respiratory failure: Impression: 1. Acute on chronic hypoxic respiratory failure. The onset of deterioration was so quick to account for cardiac event. The patient had the symptoms after he had a breakfast. Patient is known to have a history of GERD. 2. Aspiration pneumonitis. 3. 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 4. Pulmonary fibrosis, status post single left-sided lung transplant 6 years ago, on mycophenolate, prednisone and Prograf. 5. Chronic kidney disease, at baseline GFR. 6. The patient is on chronic prophylactic acyclovir and azithromycin and voriconazole. 7. ST elevation NE status post PCI with MITCHELL to LAD. Plan: 1. The patient seems to relapse again with increasing shortness of breath, he had positive JVP, it is concerning for volume overload, chest x-ray continued to show pulmonary vascular congestion, however the patient does have reticulonodul ar pattern in his transplanted lung, also concerning for atypical infection versus lymphoproliferative disease. 2. Continue alternating BiPAP with oxygen. 3. Appreciate Dr. Flo Chopra's input. 4. Continue oral intake. 5. Continue post PCI medications. 6. The patient has been maintained on doxycycline twice daily, it can be stopped, this is likely chemical aspiration. 7. Continue immunotherapy and antibiotics for prophylaxis. 8. He would benefit from bronchoscopy, however he is on Plavix. He started to have blood-tinged sputum. I am concerned about his transplanted lung, [facility] hoscopy cannot be done under the circumstances given his increased oxygen requirement as well as blood-tinged sputum. 9. Elevated BNP is likely related to renal failure. 10. Consider referral to a transplant center. 11. Discussed with the nursing staff. 12. I will start the patient on higher dose of steroids for IPF and interstitial lung disease, bronchoscopy and evaluation of the left lung is ideal but cannot be done with the Plavix on board, he is high at high risk for postprocedure complication. 13. Discontinue prednisone and restarted once he completed his course of IV systemic steroids. 14. Obtain ABG. Thank you, will follow. Subjective The patient did have an uneventful night where he had episodes of hypoxia and tachypnea requiring placing him on the BiPAP. He denies any chest pain. When I saw him today he is comfortable on the BiPAP although his low settings were adequate to control his symptoms. Also saturation on the BiPAP was 94% on 35%. His respiratory rate has been variable but in the range of 30. No fever reported. He is negative balance in fluid. Review of Systems Review of Systems: Review of system was difficult however the patient continued to have shortness of breath, he denies any pain, no heartburn, denies any aspiration, the rest of his review of system including 10 systems was otherwise unremarkable. Physical Exam Physical Exam: Vital signs are stable, S1-S2 regular rate and rhythm, he is in normal sinus rhythm, he does have history of paroxysmal A. fib, crackles bilaterally, positive JVD, abdomen is benign, no edema. Neurologically he is intact. No oral lesion. Blood-tinged sputum was noted. Results & Data Vital Signs (Past 12 Hours) Vital Signs Temp Pulse Pulse Resp BP Pulse Ox 10/12/18 07:12 62 62 32 H 94 10/12/18 06:53 36.4 C L 66 22 168/72 H 98 10/12/18 05:02 67 34 H 97 10/12/18 04:47 76 22 88 L 10/12/18 04:30 83 L 10/12/18 04:00 36.6 C 71 24 172/77 H 80 L 10/12/18 01:32 76 16 95 Laboratory Results Labs were reviewed which showed no leukocytosis, hematocrit has been stable. BUN and creatinine slightly elevated since yesterday, but chronically elevated with creatinine range of 3.
[2018-10-12 12:41] LABS: HCO3 ABG 18 mmol/L (19-24); Oxygen Saturation ABG 92.4 % (90-95); PCO2 ABG 28 mmHg (35-46); PO2 ABG 68 mm/Hg (80-95); pH ABG 7.43 (7.35-7.45)
[2018-10-12 12:43] LABS: Allen Test Pos (Pos)
--- NOTE | 2018-10-12 13:01 | Hospitalist Progress Note ---
Date of Service October 12, 2018 Assessment & Plan (1) ST elevation (STEMI) myocardial infarction: ST elevation (STEMI) myocardial infarction: -Admitted for symptoms of chest pain, left jaw pain, vomiting and diaphoresis and found to have ST Elevation myocardial infarction and patient was taken emergently to the [facility]. -Cardiac cath: 10/04/18 -Anterior STEMI/subtotal occlusion of mid LAD just after prior stent; Moderate non-culprit coronary artery disease (50% ostial RCA) and had PCI of mid LAD with single drug-eluting stent (3.0 x 15 mm Onyxoverlapped with distal aspect of prior stent) and subsequent ejection fraction of 30 to 35% because of the ischemic myopathy and ischemic CAD -Hospital course complicated by: Paroxysmal atrial fibrillation Nonsustained ventricular tachycardia and Prolonged QTC on EKG (concern for nonsustained ventricular tachycardia overnight between 10/05/18 to 10/06/18 and because of prolonged QTC, azithromycin stopped, lowered the dose of Zoloft (sertraline) from 50 mg to 25 mg starting on 10/07/18) and also complicated by - Episode on 10/08/18 of of recurrent chest pain and dyspnea a second cardiac cath on 10/08/18 did not find evidence of re-infarction Review of telemetry that patient has been in atrial fibrillation since 1:30 PM on 10/08/18 and the timing coincides after the second cardiac cath on this admission - heart rate controlled; Prolonged QTC above 500 but less than 600 -Has been on aspirin and clopidogrel, metoprolol succinate 50 mg BID -Fitted with Life Vest ([employer] phone number [phone]) starting 10/09/18 -At night of 10/10/18 and to AM of 10/11/18: patient had symptoms of chest pain and became tachypneic. continues to be in atrial fibrillation with heart rate controlled. Patient required supplementary oxygen and plans for BIPAP but as per nursing patient only able to put of BIPAP in the AM. Patient was further managed in the ICU -10/11/18: aspiration pneumonia/pneumonitis to left lung 10/10/18 and with respiratory distress and was sent to the ICU--> on doxycycline, off BIPAP --> Transfered out of ICU on 10/11/18 Acute respiratory failure with hypoxia in setting of left lung transplant Improved and now again deteriorating. Overnight hypoxic , now on BIPAP. Discussed at length with pulmonary- Possible fluid overload (received IVF) , Post transplant Lymphoproliferative disease. Probable aspiration, STEMI -Transfer to higher level of care- [facility] [place] [facility] (Lung transplant was done by Dr Rodriguez) -Salon Manager discussed with pulmonary/cc physician = patient accepted to ICU by Dr Coombs -On BIPAP now. 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 Vandana Rodriguez at [facility], phone numbers of [phone] and [phone] for transplant center at [facility]; hospitalist had spoken with [facility] field care coordinator Ambar Crzu and discussed that azithromycin being held at this time and that patient will need close follow up with transplant team after this hospital admission -Because of episode of chest pain and hypoxia on 10/08/[address] scan of the lungs was performed 1. 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 Right lung volume loss 3. 12 cm right apical bulla 4. Mild mediastinal lymphadenopathy 5. Numerous left lung pulmonary nodules, some of which demonstrate a groundglass halo. In addition there are scattered pure groundglass opacities. -Doxycycline in place of azithromycin as respiratory antibiotic started on 10/08/18 -Aspiration pneumonia/pneumonitis to left lung 10/10/18 and with respiratory distress and was sent to the ICU, transferred back to Floor yesterday CKD (chronic kidney disease) stage 5, GFR less than 15 ml/min: AV fistula in place. Not on HD yet. Follows with Dr Sterling Baseline 2.4-3.2, today up to 3.52 Essential Hypertension -continue beta cally -continue home dose doxasozin 8 mg -avoiding CRISSY inhibitor for now due to renal function, will defer to cardiology service on blood pressure medications and if further diuretic needed as ejection fraction is 30 to 35% History of hyperglycemia secondary to chronic steroid use HbA1c: 5.5 -Hold home humalog sliding scale -Novolog sliding scale per protocol -glucose controlled History of skin malignancy -gets radiation treatment to forehead from [facility] radiation oncology -hold radiation therapy for now History of right eye prosthetic Hypomagnesemia: resolved GERD (gastroesophageal reflux disease): -continue PPI Mood disorder: -due to concern for potential drug interactions with clopidogrel and home medication of fluoxetine 40 mg daily, the anti-depressant was switched to Zoloft (sertraline) on this admission -Zoloft as lower dose starting on 10/07/18 to minimize potential interaction with QTC Chronic anemia: stable Thrombocytopenia: improved DVT ppx: SCDs phone number: [phone] Full Code Disposition Discussed with pulmonary at length- Concerned about Post lung transplant lymphoproliferative disease and with multiple comorbitidities, overnight deterioration, recommends transfer to [facility] = Dr Clark. -Decision made to transfer to [facility] . Patient accepted by Dr Miky Apodaca for ICU admission after case was discussed by our cane feeder with accepting physician. Subjective Patient had episodes of hypoxia and tachypnea overnight requiring BIPAP. On BIPAP now. SaO2 94% on 35%. Lethargic but arousable and able to answer questions. Denies any chest pain. No fever, chills Physical Exam Physical Exam: General: Lethargic, on BIPAP Neck: No JVD Cardiovascular: irregularly irregular, unable to appreciate murmur, rub or gallop. Pulmonary: Bilateral crackles + Abdomen: Bowel sounds x 4, soft. No rebound, guarding or tenderness. No organomegaly. Extremities: No clubbing, cyanosis or edema. +2 pedal pulses bilaterally. Results & Data Vital Signs (Past 12 Hours) Vital Signs Temp Pulse Pulse Resp BP Pulse Ox 10/12/18 07:12 62 62 32 H 94 10/12/18 06:53 36.4 C L 66 22 168/72 H 98 10/12/18 05:02 67 34 H 97 10/12/18 04:47 76 22 88 L 10/12/18 04:30 83 L 10/12/18 04:00 36.6 C 71 24 172/77 H 80 L 10/12/18 01:32 76 16 95 (1) ST elevation (STEMI) myocardial infarction Involved coronary artery: unspecified coronary artery Qualified Code(s): I21.3 - ST elevation (STEMI) myocardial infarction of unspecified site
[2018-10-12] MEDS ORDERED: methylPREDNISolone 40 MG in SYRINGE 0 ML IV SCH (14:00)
[2018-10-12] MEDS: FLUTICASONE/SALMETEROL (ADVAIR) 500/50 INH 14 PUFF INH SCH (14:57)
[2018-10-12] MEDS: SERTRALINE HCL 50 MG TABLET PO SCH (14:58)
[2018-10-12] MEDS: CHOLECALCIFEROL 1,000 UNITS TAB PO SCH (14:58)
[2018-10-12] MEDS: CLOPIDOGREL BISULFATE 75 MG TAB PO SCH (14:58)
[2018-10-12] MEDS: ACYCLOVIR 400 MG TAB PO SCH (14:58)
[2018-10-12] MEDS: PANTOprazole 40 MG TAB PO SCH (14:58)
[2018-10-12] MEDS: TACROLIMUS 0.5 MG CAP PO SCH (14:58)
[2018-10-12] MEDS: SODIUM BICARBONATE 650 MG TAB PO SCH (14:59)
[2018-10-12] MEDS: MYCOPHENOLATE SODIUM 180 MG TAB PO SCH (14:59)
[2018-10-12] MEDS: DOXYCYCLINE HYCLATE 100 MG CAP PO SCH (14:59)
[2018-10-12] MEDS: ASPIRIN 81 MG ECTAB PO SCH (15:16)
[2018-10-12] MEDS: CALCITRIOL 0.25 MCG CAPSULE PO SCH (15:16)
--- NOTE | 2018-10-12 15:47 | Discharge Summary ---
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 Patient reports during the middle night started with anterior chest pain and left jaw pain with associated nausea and vomiting a couple of times. Also reports diaphoresis. Denies increased shortness of breath. Denies palpitations, dizziness. Pt with hx c-diff in 05/2018 and completed oral vancomycin. Patient reports chronic diarrhea with approximately 4 episodes daily. Denies fever/chills, HARRIS, syncope, vision changes, neck pain, orthopnea, cough, sore throat, choking, otalgia, rhinorrhea, abdominal pain, paresthesias, weakness, extremity edema, rashes, uri nary symptoms. In ER pt found to have STEMI and was taken to the boat laborer. Pt s/p stent to LAD and is in ICU and reports is currently CP free. Principal Diagnosis 1. STEMI S/P Cardiac cath- PCI with 1 MITCHELL in mid LAD 2. Ischemic CMP with EF 30-35% 2. Paroxsymal Atrial fibrillation 3. Acute hypoxic respiratory failure, multifactorial Secondary diagnosis on discharge 1. Pulmonary fibrosis, Bilateral 2. Hx of left lung transplant 3. Hypomagnesemia 4. Hx of right eye prosthetic 5. GERD 6. Mood disorder 7. HTN 8. Chronic anemia 9. Thrombocytopenia Discharge Exam General: Awake, alert now Neck: No JVD Cardiovascular: irregularly irregular, unable to appreciate murmur, rub or gallop. Pulmonary: Bilateral crackles + Abdomen: Bowel sounds x 4, soft. No rebound, guarding or tenderness. No organomegaly. Extremities: No clubbing, cyanosis or edema. +2 pedal pulses bilaterally. Discharge Data Allergies Allergy/AdvReac Type Severity Reaction Status Date / Time levofloxacin Allergy Intermediate ANAPHYLAXIS Verified 10/03/18 11:27 oxycodone Allergy Intermediate ANAPHYLAXIS Verified 10/03/18 11:27 cat dander Allergy Unknown CHEST Verified 10/03/18 11:27 TIGHTNESS Consultations 10/04/18 07:59 ED Decision to Admit Stat 10/04/18 09:12 Consult Case Management - Discharge Planning Routine 10/04/18 09:13 Consult Fluorescent Lighting Model Maker Routine 10/04/18 09:19 Consult Cardiology Routine 10/04/18 09:48 Consult Cardiac Rehabilitation Routine 10/05/18 09:40 Consult Nephrology Routine 10/10/18 08:29 Consult Fluorescent Lighting Model Maker Stat Procedures Performed Operation Date: 10/04/18 07:30 Actual Procedures p Aspiration/PCI w/MITCHELL for Stemi - Devin Blair MD s IVUS Coronary Single Vessel - Devin Blair MD s Cineradiography w/Routine Exam - Devin Blair MD s Cath, Left with Cors and Vent(Not Applicable) - Devin Blair MD Operation Date: 10/08/18 12:00 Actual Procedures p Cath, Left with Cors and Vent - Devin Blair MD s Cineradiography w/Routine Exam - Devin Blair MD Ordered Studies 10/04/18 07:33 CL Cath Imgs for PACS use only Stat 10/04/18 14:15 CL IVUS Coronary Single Vessel Routine 10/06/18 08:24 US renal/blad retro comp Routine 10/08/18 10:48 CT chest wo con Stat 10/08/18 12:16 CL Cath Imgs for PACS use only Stat Hospital Course (1) ST elevation (STEMI) myocardial infarction: ST elevation (STEMI) myocardial infarction: -Admitted for symptoms of chest pain, left jaw pain, vomiting and diaphoresis and found to have ST Elevation myocardial infarction and patient was taken emergently to the [facility] [facility]. -Cardiac cath: 10/04/18 -Anterior STEMI/subtotal occlusion of mid LAD just after prior stent; Moderate non-culprit coronary artery disease (50% ostial RCA) and had PCI of mid LAD with single drug-eluting stent (3.0 x 15 mm Onyxoverlapped with distal aspect of prior stent) and subsequent ejection fraction of 30 to 35% because of the ischemic myopathy and ischemic CAD -Hospital course complicated by: Paroxysmal atrial fibrillation Nonsustained ventricular tachycardia and Prolonged QTC on EKG (concern for nonsustained ventricular tachycardia overnight between 10/05/18 to 10/06/18 and because of prolonged QTC, azithromycin stopped, lowered the dose of Zoloft (sertraline) from 50 mg to 25 mg starting on 10/07/18) and also complicated by - Episode on 10/08/18 of of recurrent chest pain and dyspnea a second cardiac cath on 10/08/18 did not find evidence of re-infarction Review of telemetry that patient has been in atrial fibrillation since 1:30 PM on 10/08/18 and the timing coincides after the second cardiac cath on this admission - heart rate controlled; Prolonged QTC above 500 but less than 600 -Has been on aspirin and clopidogrel, metoprolol succinate 50 mg BID -Fitted with Life Vest ([employer] phone number [phone]) starting 10/09/18 -At night of 10/10/18 and to AM of 10/11/18: patient had symptoms of chest pain and became tachypneic. continues to be in atrial fibrillation with heart rate controlled. Patient required supplementary oxygen and plans for BIPAP but as per nursing patient only able to put of BIPAP in the AM. Patient was further managed in the ICU -10/11/18: aspiration pneumonia/pneumonitis to left lung 10/10/18 and with respiratory distress and was sent to the ICU--> on doxycycline, off BIPAP --> Transfered out of ICU on 10/11/18 Acute respiratory failure with hypoxia in setting of left lung transplant Improved and now again deteriorating. Overnight hypoxic , now on BIPAP. Discussed at length with pulmonary- Possible fluid overload (received IVF) , Post transplant Lymphoproliferative disease. Probable aspiration, STEMI -Transfer to higher level of care- [facility] ICU (Lung transplant was done by Dr Rodriguez) -Fluorescent Lighting Model Maker discussed with pulmonary/cc physician = patient accepted to ICU by Dr Coombs -On BIPAP now. 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 Vandana Rodriguez at [facility], phone numbers of [phone] and [phone] for transplant center at [facility]; hospitalist had spoken with [facility] fitness plan coordinator Ambar Cruz and discussed that azithromycin being held at this time and that patient will need close follow up with transplant team after this hospital admission -Because of episode of chest pain and hypoxia on 10/08/[address] scan of the lungs was performed 1. 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 Right lung volume loss 3. 12 cm right apical bulla 4. Mild mediastinal lymphadenopathy 5. Numerous left lung pulmonary nodules, some of which demonstrate a groundglass halo. In addition there are scattered pure groundglass opacities. -Doxycycline in place of azithromycin as respiratory antibiotic started on 10/08/18 -Aspiration pneumonia/pneumonitis to left lung 10/10/18 and with respiratory distress and was sent to the ICU, transferred back to Floor yesterday CKD (chronic kidney disease) stage 5, GFR less than 15 ml/min: AV fistula in place. Not on HD yet. Follows with Dr Sterling Baseline 2.4-3.2, today up to 3.52 Essential Hypertension -continue beta cally -continue home dose doxasozin 8 mg -avoiding CRISSY inhibitor for now due to renal function, will defer to cardiology service on blood pressure medications and if further diuretic needed as ejection fraction is 30 to 35% History of hyperglycemia secondary to chronic steroid use HbA1c: 5.5 -Hold home humalog sliding scale -Novolog sliding scale per protocol -glucose controlled History of skin malignancy -gets radiation treatment to forehead from [facility] radiation oncology -hold radiation therapy for now History of right eye prosthetic Hypomagnesemia: resolved GERD (gastroesophageal reflux disease): -continue PPI Mood disorder: -due to concern for potential drug interactions with clopidogrel and home medication of fluoxetine 40 mg daily, the anti-depressant was switched to Zoloft (sertraline) on this admission -Zoloft as lower dose starting on 10/07/18 to minimize potential interaction with QTC Chronic anemia: stable Thrombocytopenia: improved DVT ppx: SCDs phone number: [phone] Full Code Disposition Discussed with pulmonary at length- Concerned about Post lung transplant lymp hoproliferative disease and with multiple comorbitidities, overnight deterioration, recommends transfer to [facility] = Dr Clark. -Decision made to transfer to [facility] . Patient accepted by Dr Miky Apodaca for ICU admission after case was discussed by our furnace process plant operator with accepting physician. Discussed about the benefits and risk of transfer to by bedside Total Time Total Time Spent Total Time Spent (In Minutes): 55 minutes Discharge Plan Discharge Items Patient Disposition: Transfer Acute Care Hospital Reason For Visit: CP, S/P STENT Discharge Diagnosis: Acute respiratory failure, ST elevation (STEMI) myocardial infarction, Ischemic cardiomyopathy, Paroxysmal atrial fibrillation, Prolonged QTC on EKG, Idiopathic pulmonary fibrosis, history of left lung transplant, CKD (chronic kidney disease) stage 5 GFR less than 15 ml/min Discharge Goals: Therapeutic intervention Activity: As commented below Activity Comment: bed rest Non-emergency contact: Primary Care Provider Call non-emergency contact if: your symptoms worsen Follow-up/Referrals: Carlton Lindo DO [Primary Care Provider] - Diet: Carb Consistent or DM2, Heart Healthy and Low Sodium (2gm) Addtl Provider Instructions: Follow up with [facility] lung transplant clinic 10/13/2018 1:10 PM Provider Carlton Lindo DO Department [facility] 11/04/2018 8:30 AM Provider Scotty Chopra Jr., DO Department Cardiology, [facility] 11/08/2018 3:20 PM Provider Carlton Lindo DO Department [facility] Prescriptions: New doxycycline hyclate 100 mg Capsule 100 mg PO BID 30 Days Qty: 60 RF: 0 sodium bicarbonate 650 mg Tablet 650 mg PO BID 30 Days Qty: 60 RF: 0 pantoprazole 40 mg Tablet,Delayed Release (Dr/Ec) 40 mg PO BID 30 Days Qty: 60 RF: 0 sertraline 50 mg Tablet 25 mg PO QAM 30 Days Qty: 15 RF: 0 Continued acyclovir 400 mg Tablet 400 mg PO QAM RF: 0 aspirin 81 mg Tablet,Delayed Release (Dr/Ec) 81 mg PO QAM RF: 0 cholecalciferol (vitamin D3) 1,000 unit Capsule 1,000 unit PO QAM RF: 0 albuterol sulfate 2.5 mg/0.5 mL Solution For Nebulization 2.5 mg INHALATION BID RF: 0 furosemide [Lasix] 40 mg Tablet 40 mg PO QAM RF: 0 acetaminophen [Tylenol Extra Strength] 500 mg Tablet 500 mg PO Q6H PRN (Reason: Pain) RF: 0 fluticasone propion-salmeterol [Advair Diskus] 500-50 mcg/dose Blister With Device 1 inh INHALATION Q12H RF: 0 doxazosin 4 mg Tablet 8 mg PO QAM RF: 0 montelukast [Singulair] 10 mg Tablet 10 mg PO PM RF: 0 calcitriol 0.25 mcg Capsule 0.25 mcg PO 3XWK RF: 0 tacrolimus [Prograf] 0.5 mg Capsule 0.5 mg PO BID RF: 0 rosuvastatin [Crestor] 40 mg Tablet 40 mg PO HS RF: 0 mycophenolate sodium [Myfortic] 180 mg Tablet,Delayed Release (Dr/Ec) 360 mg PO BID RF: 0 omega-3 acid ethyl esters [Lovaza] 1 gram Capsule 2 cap PO BID RF: 0 labetalol 100 mg Tablet 100 mg PO BID RF: 0 darbepoetin nicholas in polysorbat 60 mcg/mL Solution 1.01 ml subcut WK RF: 0 fluoxetine 40 mg Capsule 40 mg PO DAILY RF: 0 magnesium 250 mg Tablet 250 mg PO DAILY RF: 0 clopidogrel 75 mg Tablet 75 mg PO QAM RF: 0 Discontinued ondansetron 4 mg tablet,disintegrating 4 mg PO TID PRN (Reason: Nausea) RF: 0 azithromycin [Zithromax] 250 mg Tablet 250 mg PO 3XWK RF: 0 sulfamethoxazole-trimethoprim [Bactrim] 400-80 mg Tablet 1 tab PO 2XWK RF: 0 prednisone 5 mg Tablet 5 mg PO QAM RF: 0 sodium bicarbonate 650 mg Tablet 650 mg PO BID RF: 0 pantoprazole [Protonix] 40 mg Tablet,Delayed Release (Dr/Ec) 40 mg PO BID RF: 0 Noxafil 100 mg Tablet,Delayed Release (Dr/Ec) 300 mg PO HS RF: 0 Bethkis 300 mg/4 mL Solution For Nebulization 150 mg INHALATION Q12H RF: 0 insulin lispro [Humalog KwikPen Insulin] 100 unit/mL insulin pen 12 unit SUBCUT UD RF: 0 cyclobenzaprine 5 mg Tablet 5 mg PO BID PRN (Reason: Muscle Spasm) RF: 0 Stand-Alone Forms: [facility] Discharge Orders: Discharge Order (Routine); Ordered 10/12/18 Ordered By: Teodora Campos Admission Data Admit Date/Time: 10/04/18 09:12 Attending Provider: Teodora Campos Admit Provider: Dex Beth Primary Care Provider: Carlton Lindo. Other Providers: Dex Beth ; Rodo Montano ; Beto Briseno ; Lauren Sterling ; Vero Oakes ; Ángel Brown Service: Telemetry
[2018-10-12 19:26] VITALS: BP 143/67; TEMP 98.6
[2018-10-12 19:57] VITALS: O2SAT 95
[2018-10-12 21:29] VITALS: PULSE 68
== END 2018-10-12 21:05 | disposition short-term general hospital (02) | DRG 246 ==
LOC: ED 07:38 → CC 07:55 → SUATTDRO 09:12 → 1E 09:30 → 2S 10-05 13:06 → 1E 10-10 08:54 → 2S 10-11 19:18

== ENCOUNTER 2018-10-27 11:42 | Inpatient (IN) ==
[2018-10-27] MEDS ORDERED: FUROSEMIDE 40 MG/4 ML VIAL IV STA (12:17)
--- NOTE | 2018-10-27 12:49 | XRay Report ---
XR chest 1V portable CLINICAL HISTORY: Dyspnea COMPARISON STUDY: 10/12/2018 FINDINGS: The heart remains enlarged. There is radiographic evidence of emphysema. There is a large r ight upper lobe bleb. There are chronic right mid and lower lung zone airspace opacities. There is a small right pleural effusion. The left lung is clear.[ There is chronic enlargement of the right pulm onary artery. IMPRESSION: 1. Cardiomegaly 2. Bullous emphysema on the right 3. Extensive chronic right mid and lower lung zone airspace opacities 4. Evidence of pulmonary arterial hypertension on the right 5. The left lung remains clear Electronically signed by: Bon Ariza M.D. 10/27/2018 12:48 PM
[2018-10-27 12:54] LABS: Basophils # (auto) 0.02 K/uL (0-0.2); Basophils % (auto) 0.4 %; Eosinophils # (auto) 0.22 K/uL (0-0.5); Eosinophils % (auto) 4.2 %; Hematocrit (blood only) 27.9 % (42-52); Hemoglobin 9.2 g/dL (14.0-18.0); Immature Granulocytes # (auto) 0.01 K/uL (0.00-0.02); Immature Granulocytes % (auto) 0.2 %; Lymphocytes # (auto) 0.32 K/uL (1.2-3.4); Lymphocytes % (auto) 6.2 %; Mean Corpuscular Volume 104.9 fL (80-100); Mean Platelet Volume 11.3 fL (7.4-10.4); Monocytes # (auto) 0.64 K/uL (0.11-0.59); Monocytes % (auto) 12.3 %; Neutrophils # (auto) 3.98 K/uL (1.4-6.5); Neutrophils % (auto) 76.7 %; Platelet Count 128 K/uL (130-400); RDW Coefficient of Variation 15.1 % (11.5-14.5); RDW Standard Deviation 57.6 fL (36.4-46.3); Red Blood Count 2.66 M/uL (4.7-6.1); White Blood Count 5.19 K/uL (4.8-10.8)
[2018-10-27 13:05] LABS: Partial Thromboplastin Ratio 0.9; Partial Thromboplastin Time 24.2 Seconds (21.0-31.0); Prothrombin Time 10.6 Seconds (9.0-12.0)
[2018-10-27 13:13] LABS: Alanine Aminotransferase 17 U/L (12-78); Aspartate Aminotransferase 16 U/L (15-37); BUN Creatinine Ratio 13.1 (10-20); Blood Urea Nitrogen 35 mg/dl (7-18); Calcium 8.6 mg/dl (8.5-10.1); Carbon Dioxide 19 mmol/L (21-32); Chloride 115 mmol/L (98-107); Est GFR (African American) 25.5; Glucose 84 mg/dl (70-99); Magnesium 1.7 mg/dl (1.8-2.4); Sodium 144 mmol/L (136-145)
[2018-10-27 13:20] LABS: Alkaline Phosphatase 81 U/L (45-117); Bilirubin,Total 0.6 mg/dl (0.2-1); NT Pro B Type Natriuretic Pept > 35000 pg/ml (0-1800); Phosphorus 3.4 mg/dl (2.5-4.9); Troponin I 0.126 ng/ml (0-0.045)
[2018-10-27 14:36] LABS: Appearance Urine Clear (Clear); Bacteria Urine Automated Negative (Negative); Bilirubin Urine Negative (Negative); Blood Urine Negative (Negative); Color Urine Yellow; Glucose Urine UA Negative (Negative); Ketones Urine Negative (Negative); Leukocyte Esterase Urine Negative (Negative); Nitrite Urine Negative (Negative); Protein Urine 1+ (Negative); RBC Urine Automated 0-4 /hpf (0-4); Specific Gravity Urine 1.015 (1.000-1.030); Urobilinogen Urine Negative (Negative); WBC Urine Automated 0 /hpf (0-5)
--- NOTE | 2018-10-27 15:43 | History & Physical Report ---
Date of Service October 27, 2018 Assessment & Plan (1) Volume overload: Pt presented to ER with c/o increased bilateral ankle edema today. Pt denies increased SOB from baseline, denies orthopnea, CP. Does not think gained weight No rales noted on lung exam -In ER pt given lasix 40mg IV -cardiology consult -nephrology consult for assistance with further diuretic recommendations -monitor bmp (2) Elevated troponin: Hx CAD s/p MITCHELL to LAD 05/2018, and MITCHELL to LAD 09/2018 Troponin: 0.126. Hx troponin 13.9, 63 prior admission with his MT. No CP EKG with new T wave inversions lateral leads -cardiology consult, appreciate recommendations: Believe T wave inversions in the lateral precordial leads is likely in evolution of his previously noted MT. He does not have any symptoms suggestive of recurrent ischemic event at present. -trend troponin -pending echo -continue aspirin, plavix, statin, labetalol -would appreciate cardiology input on pt's labetalol vs metoprolol that was previously started during last admission and pt then placed back on labetalol (3) SOB (shortness of breath): Chronic SOB Pt denies any increased SOB. Cough clear sputum. 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 Not on dialysis yet. Patient follows with Dr. Sterling Cr: 2.69. Baseline~3-3.5 -Monitor renal functions -Avoid nephrotoxic agents and possible (7) Hyperglycemia: History hyperglycemia secondary to chronic steroid use A1c 5.5 on 09/2017 -Hold home Humalog sliding scale -NovoLog sliding scale per protocol (8) HTN (hypertension): BP elevated in ER -Continue labetalol, Cardura -Monitor BP (9) Idiopathic pulmonary fibrosis: S/P left lung transplant at [facility] in 2012. [address] Rodriguez at [facility] -Continue mycophenolate, tacrolimus, Advair, singular, albuterol, inhaled tobramycin, prednisone, Bactrim, acyclovir, posaconazole, azithromycin (10) GERD (gastroesophageal reflux disease): (11) Mood disorder: During last admission patient fluoxetine was changed to Zoloft. Patient developed prolonged QTC and Zoloft dosage was decreased. Patient states since been restarted back on fluoxetine (12) Chronic anemia: Hgb: 9.2. Baseline~9-10 PLT: 128. Baseline~140s -Monitor CBC DVT Prophylaxis -SCDs Full Code as per discussion with pt Follows with Dr Lindo for routine care Pt was seen with Dr Basurto. 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 Hx hospitalization at [facility] on 10/04/18. Had complicated hospital course. Pt with NSTEMI with stent to LAD on 10/04/18. During hospital course his fluoxetine was switched to zoloft 50mg daily secondary to medication interaction. He developed prolonged QTc and concern for nonsustained Vtach and his prophylactic zithromax was held and doxycycline was started and zoloft was decreased to 25mg daily. His labetalol was changed to metoprolol succinate. 10/08/18 developed hypoxia, 10/10/18 developed acute respiratory failure, afib and possible aspiration, 10/12/18 hypoxic again and possible fluid overload, post transplant lymphoproliferative disease. Pt was transferred to [facility] on 10/12/18 and reports discharged on 10/17/18. (Unable to review discharge summary at this time) Since hospital discharge, pt is back on labetalol and fluoxetine. Pt resumed zithromax on 10/24/18 per lung transplant team recommendations. Pt has home health couple of times a week. Nurse visit today and was concerned with increased LE edema and thought pt more SOB and had worsening lung sounds. He reports that he has been weighing himself a couple of times a week and hasn't noticed weight changes. Pt states today he has noticed BLE edema. Pt reports chronic SOB with exertion which is worse some days. Feels he is at his baseline breathing. Denies orthopnea. Has had cough x 2 weeks initially nonproductive and now productive clear sputum. Reports 3-5 episodes of watery diarrhea for past couple of days. Reports chronic very soft stools but not usually watery. Denies any firing from [employer]. Pt reports has had generalized weakness since initial MT in 05/2018. He has had home PT twice week for past couple of weeks and feels is tolerating and able to participate in PT exercises. Denies fever/chills, diaphoresis, N/V, HARRIS, dizziness, syncope, vision changes, neck pain, CP, palpitations, hemoptysis, sore throat, choking, otalgia, rhinorrhea, abdominal pain, rashes, urinary symptoms. Allergies Allergy/AdvReac Type Severity Reaction Status Date / Time levofloxacin Allergy Intermediate ANAPHYLAXIS Verified 10/27/18 12:18 oxycodone Allergy Intermediate ANAPHYLAXIS Verified 10/27/18 12:18 cat dander Allergy Unknown CHEST Verified 10/27/18 12:18 TIGHTNESS Home Medications Home Medications Medication Instructions Recorded Confirmed Type acetaminophen [Tylenol Extra 500 mg PO Q6H PRN 05/09/18 10/27/18 History Strength] acyclovir 400 mg PO QAM 05/09/18 10/27/18 History albuterol sulfate 2.5 mg INHALATION BID 05/09/18 10/27/18 History aspirin 81 mg PO QAM 05/09/18 10/27/18 History cholecalciferol (vitamin D3) 1,000 unit PO QAM 05/09/18 10/27/18 History doxazosin 8 mg PO QAM 05/09/18 10/27/18 History fluticasone propion-salmeterol 1 inh INHALATION Q12H 05/09/18 10/27/18 History [Advair Diskus] furosemide [Lasix] 40 mg PO QAM 05/09/18 10/27/18 History labetalol 100 mg PO BID 05/09/18 10/27/18 History montelukast [Singulair] 10 mg PO HS 05/09/18 10/27/18 History mycophenolate sodium [Myfortic] 360 mg PO BID 05/09/18 10/27/18 History omega-3 acid ethyl esters [Lovaza] 2 cap PO BID 05/09/18 10/27/18 History rosuvastatin [Crestor] 40 mg PO HS 05/09/18 10/27/18 History tacrolimus [Prograf] 0.5 mg PO BID 05/09/18 10/27/18 History clopidogrel 75 mg PO QAM 07/21/18 10/27/18 History fluoxetine 40 mg PO QAM 10/04/18 10/27/18 History pantoprazole 40 mg PO BID 30 Days #60 tab 10/12/18 10/27/18 Rx azithromycin 250 mg tablet 250 mg PO QAM 10/19/18 10/27/18 History insulin lispro (U- 100) 100 See Rx Instructions SQ TID PRN 10/19/18 10/27/18 History unit/mL subcutaneous pen magnesium 71.5 mg (magnesium 143 mg PO QAM 10/19/18 10/27/18 History chloride) tablet,delayed release posaconazole 100 mg tablet,delayed 300 mg PO TID 10/19/18 10/27/18 History release prednisone 5 mg tablet 5 mg PO QAM 10/19/18 10/27/18 History sodium bicarbonate 650 mg tablet 650 mg PO TID tab 10/19/18 10/27/18 History epoetin nicholas [Epogen] 0 unit SUBCUT MONTHLY 10/27/18 10/27/18 History sulfamethoxazole-trimethoprim 1 tab PO 2XWK 10/27/18 10/27/18 History tobramycin with nebulizer 150 mg INHALATION Q12H 10/27/18 10/27/18 History Past Med/Surg History Medical History Hyperglycemia (Chronic) Paroxysmal atrial fibrillation (Chronic) Idiopathic pulmonary fibrosis (Chronic) 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 GI CONCERNED AND FEELS SCOPE IS NECESSARY Surgical History S/P patent foramen ovale closure (Resolved) Lung transplant status (Chronic) Hx of heart artery stent (Chronic) S/P MITCHELL to LAD and circumflex after NSTEMI in 05/2018 History of cardiac cath STENTS X2 MAY 2018 (SEE [facility] RECORD ) Family History Father , in his seventies of cancer No problems noted. Mother , age 88 of CHF No problems noted. Daughter Age: 45 No problems noted. Son Age: 44 No problems noted. 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 Last drink Last night) Alcohol type: hard liquor Hx Substance Use: No caffeine: Yes (1 cup in am) Review of Systems Review of Systems: All systems reviewed & are unremarkable except as noted in HPI & below Physical Exam Physical Exam: General: no acute distress, chronic ill appearing, WDWN Head: normocephalic, atraumatic Eyes: EOM's intact, conjunctiva non-injected, anicteric ENT: normal inspection external ears, nose, mucous membranes moist Neck: supple, trachea midline, non-tender Lungs: no respiratory distress, coarse breath sounds scattered throughout right lung, appears clear to left lung CV: irregularly irregular, no JVD, + edema bilateral ankles and feet 1-2+ Abd: normal BS, soft, non-tender Ext: no cyanosis, no calf tenderness Neuro: A&O x 3, no focal deficits noted, normal affect Skin: warm, dry, right forehead and periorbital with erythema dry skin (pt receiving radiation for squamous cell carncinoma) Results & Data Vital Signs (Past 12 Hours) Vital Signs Temp Pulse Resp BP Pulse Ox 10/27/18 14:10 79 27 H 97 10/27/18 14:02 86 24 100 10/27/18 13:50 69 19 99 10/27/18 13:40 79 25 H 99 10/27/18 13:30 75 17 99 10/27/18 13:20 78 12 99 10/27/18 13:10 83 23 97 10/27/18 13:00 71 27 H 98 10/27/18 12:50 74 19 98 10/27/18 12:40 70 16 99 10/27/18 12:31 87 21 96 10/27/18 12:17 96 10/27/18 11:45 37.1 C 94 H 20 183/66 H 95 10/27/18 11:42 98 Laboratory Results Short CBC 10/27/18 10/27/18 10/27/18 Range/Units 12:42 12:42 18:46 WBC 5.19 (4.8-10.8) K/uL Hgb 9.2 L (14.0-18.0) g/dL Hct 27.9 L (42-52) % Plt Count 128 L (130-400) K/uL Troponin I 0.126 H* 0.119 H* (0-0.045) ng/ml BMP 10/27/18 12:42 Sodium 144 Potassium 4.0 Chloride 115 H Carbon Dioxide 19 L BUN 35 H Creatinine 2.69 H Glucose 84 Calcium 8.6 Cardiac Enzymes 10/27/18 10/27/18 Range/Units 12:42 18:46 Troponin I 0.126 H* 0.119 H* (0-0.045) ng/ml Liver Function 10/27/18 Range/Units 12:42 Total Bilirubin 0.6 (0.2-1) mg/dl AST 16 (15-37) U/L ALT 17 (12-78) U/L Alkaline Phosphatase 81 (45-117) U/L Albumin 3.0 L (3.4-5.0) gm/dl Urine 05/09/19 Range/Units 14:10 Urine Color Yellow Urine Appearance Clear (Clear) Urine pH 5.0 (4.5-7.5) Ur Specific [place] 1.015 (1.000-1.030) Urine Protein 1+ H (Negative) Urine Glucose (UA) Negative (Negative) Diagnostic Findings CXR: IMPRESSION: 1. Cardiomegaly 2. Bullous emphysema on the right 3. Extensive chronic right mid and lower lung zone airspace opacities 4. Evidence of pulmonary arterial hypertension on the right 5. The left lung remains clear ECG Rate (beats per minute): 68 Rhythm: atrial fibrillation Findings: + T-wave inversion (Anterolateral) Supervising Physician Co-Signing Physician Notes I have seen and examined the patient and have discussed the case with the provider above. I agree with the assessment and plan as stated with the following exceptions. Mr. Bill is hemodynamically stable and afebrile and is mentating well. He is in no acute distressed and is not hypoxic or tachypneic. He appears volume up on exam with some rhonchi on lung exam and LE edema that is new. BNP is >35275, also. He has been taking Lasix as outpatient but has progressed renal disease. Appreciate Nephro recs for fluid management. Cards consulted. TTE appears unchanged if not slightly improved. Apprec assistance with medication changes to optimize HFrEF. Pt is wearing a life vest, and his rn resource nurse has told him no bronchoscopy to figure out what is happening in his lungs until the heart condition is treated/improved. Otherwise, cont with plan as stated above. DO Sb Active issues: Systolic heart failure exacerbation CKD Stage 4 Demand ischemia PAF Diarrhea SCC of face with ongoing XRT IPF s/p L lung transplant on immunosuppressant therapy (1) Volume overload Hypervolemia type: unspecified Qualified Code(s): E87.70 - Fluid overload, u nspecified
[2018-10-27] MEDS ORDERED: TOBRAMYCIN INH SCH (17:07)
[2018-10-27] MEDS ORDERED: CARBOHYDRATES FOR HYPOGLYCEMIA PO PRN (17:07)
[2018-10-27] MEDS ORDERED: GLUCAGON FOR INJ 1 MG VIAL SQ PRN (17:07)
[2018-10-27] MEDS ORDERED: GLUCOSE 40% GEL 15 GM TUBE PO PRN (17:07)
[2018-10-27] MEDS ORDERED: [UNRECOGNIZED DRUG - OTHER] INH SCH (17:07)
[2018-10-27] MEDS ORDERED: ACETAMINOPHEN 325 MG TAB PO PRN (17:07)
[2018-10-27] MEDS ORDERED: DEXTROSE 50% 50 ML SYRINGE IV PRN (17:07)
[2018-10-27] MEDS ORDERED: GLUCOSE 10 TABS/TUBE PO PRN (17:07)
--- NOTE | 2018-10-27 17:31 | Cardiology Consultation ---
Date of Consultation October 27, 2018 Assessment & Plan (1) Volume overload: Patient with a history of ischemic cardiomyopathy, new recent decline in LVEF at the time of LAD territory myocardial infarction in September,, with ejection fraction in the range of 30-35%, also stage IV -V CKD. He is not on dialysis, he is a previously placed AV fistula. His creatinine today of 2.69 is actually improved compared to his discharge creatinine of 3.5 to on 10/12/2018, and improved compared to the follow-up performed as an outpatient on 10/21/2018 which was 3.05. Patient denies any history suggestive of angina, states he came to the emergency room due to no edema. He has been taking furosemide 40 mg by mouth daily at home. He is hypertensive in the emergency room. A bedside echocardiogram was performed revealing ongoing findings of LAD territory wall motion abnormality. Overall LV systolic function is perhaps improved to a very subtle degree but is still within the range of 30 to 35%. I believe the EKG findings now include T wave inversions in the lateral precordial leads is likely in evolution of his previously noted [place]. He does not have any symptoms suggestive of recurrent ischemic event at present. Agree with conservative dose of furosemide 40 mg IV x1 now already ordered by located within [facility] emergency room provider. Recommend nephrology consult for assistance in diuretic dosing moving forward as his kidney function is tenuous. (2) Ischemic cardiomyopathy: Continue prior to hospital dosing of aspirin and clopidogrel. Continue labetalol and rosuvastatin. (3) Paroxysmal atrial fibrillation: Patient is currently in rate controlled atrial fibrillation. Was in sinus rhythm on EKG last admission. He reportedly had significant gastrointestinal bleeding while on triple therapy with anticoagulant plus aspirin and clopidogrel in the past per his chart. He therefore is not on anticoagulation therapy. We will continue his current medications. He also has a history of prior PFO closure, no significant intracardiac shunt noted on 2D and Doppler imaging on his echocardiogram today. History of Present Illness Attending Physician: Teodora Campos History of Present Illness Shaun Bill is a 77 year old male seen in cardiology consultation per the [facility] of lower extremity edema and abnormal EKG. The patient's primary business development assistant is Dr Alaina Chopra of our practice. The patient has a history of complex coronary heart disease with ischemic cardiomyopathy, LVEF in the range of 30-35% in September,. He also has a history of idiopathic pulmonary fibrosis with past left lung transplant in 2013 at [facility]. He has a stage IV- V chronic kidney disease, not yet on hemodialysis and follows with [facility] nephrology. The patient underwent prior uppercase coronary intervention to the left anterior descending coronary artery and circumflex and setting of a non-ST segment elevation myocardial infarction in May,. He presented to the emergency department at [facility] in the fans clerk hours of 10/04/2018 with complaints of chest discomfort. At that time the patient was found to have an acute ST segment elevation myocardial infarction and was taken to the cardiac catheterization laboratory in emergent fashion by Dr. Blair with findings of a 99% subtotal occlusion of the mid LAD just distal to the previously placed stent. He underwent successful PCI of the mid LAD receiving a single drug-eluting stent that overlapped with the distal aspect of the prior mid LAD stent. A 50% ostial RCA stenosis was noted. On 10/08 he had recurrent chest discomfort, this prompted repeat cardiac catheterization on 10/08/2018 with findings of widely patent prior LAD stents and 50% ostial RCA stenosis unchanged compared to the prior procedure on 10/04/2018. The patient was found to have new left ventricular systolic function with LAD territory wall motion abnormality extending to the apex and ejection fraction of 30-35%. A LifeVest was placed during that hospital stay. The patient's creatinine on 09/24/2018 was 2.63, this peaked at 3.57. The patient developed progressive shortness of breath during his hospital stay ultimately prompting transfer to [facility] where his prior lung transplant took place on 10/12/2018. The patient was hospitalized there is from 10/12/2018 until 10/17/2018 and his pulmonary status was optimized prior to discharge. The patient presents the emergency room today accompanied by his spouse. He describes a stable degree of exertional shortness of breath that is unchanged compared to his prior baseline over the last few weeks. New today or findings of ankle and pedal edema the per the patient and his spouse were new having come up overnight. He had been seen by home health and there were concerns about his breath sounds as well as is no edema. The patient proceeded with a telephone consultation with his support analyst, and ultimately came to the emergency room for further assessment. He denied any chest discomfort or symptoms reminiscent of the angina that prompted his recent cardiac catheterization. Allergies Allergy/AdvReac Type Severity Reaction Status Date / Time levofloxacin Allergy Intermediate ANAPHYLAXIS Verified 10/27/18 12:18 oxycodone Allergy Intermediate ANAPHYLAXIS Verified 10/27/18 12:18 cat dander Allergy Unknown CHEST Verified 10/27/18 12:18 TIGHTNESS Home Medications Home Medications Medication Instructions Recorded Confirmed Type acetaminophen [Tylenol Extra 500 mg PO Q6H PRN 05/09/18 10/27/18 History Strength] acyclovir 400 mg PO QAM 05/09/18 10/27/18 History albuterol sulfate 2.5 mg INHALATION BID 05/09/18 10/27/18 History aspirin 81 mg PO QAM 05/09/18 10/27/18 History cholecalciferol (vitamin D3) 1,000 unit PO QAM 05/09/18 10/27/18 History doxazosin 8 mg PO QAM 05/09/18 10/27/18 History fluticasone propion-salmeterol 1 inh INHALATION Q12H 05/09/18 10/27/18 History [Advair Diskus] furosemide [Lasix] 40 mg PO QAM 05/09/18 10/27/18 History labetalol 100 mg PO BID 05/09/18 10/27/18 History montelukast [Singulair] 10 mg PO HS 05/09/18 10/27/18 History mycophenolate sodium [Myfortic] 360 mg PO BID 05/09/18 10/27/18 History omega-3 acid ethyl esters [Lovaza] 2 cap PO BID 05/09/18 10/27/18 History rosuvastatin [Crestor] 40 mg PO HS 05/09/18 10/27/18 History tacrolimus [Prograf] 0.5 mg PO BID 05/09/18 10/27/18 History clopidogrel 75 mg PO QAM 07/21/18 10/27/18 History fluoxetine 40 mg PO QAM 10/04/18 10/27/18 History pantoprazole 40 mg PO BID 30 Days #60 tab 10/12/18 10/27/18 Rx azithromycin 250 mg tablet 250 mg PO QAM 10/19/18 10/27/18 History insulin lispro (U- 100) 100 See Rx Instructions SQ TID PRN 10/19/18 10/27/18 History unit/mL subcutaneous pen magnesium 71.5 mg (magnesium 143 mg PO QAM 10/19/18 10/27/18 History chloride) tablet,delayed release posaconazole 100 mg tablet,delayed 300 mg PO TID 10/19/18 10/27/18 History release prednisone 5 mg tablet 5 mg PO QAM 10/19/18 10/27/18 History sodium bicarbonate 650 mg tablet 650 mg PO TID tab 10/19/18 10/27/18 History epoetin nicholas [Epogen] 0 unit SUBCUT MONTHLY 10/27/18 10/27/18 History sulfamethoxazole-trimethoprim 1 tab PO 2XWK 10/27/18 10/27/18 History tobramycin with nebulizer 150 mg INHALATION Q12H 10/27/18 10/27/18 History Patient History Medical History Hyperglycemia (Chronic) Paroxysmal atrial fibrillation (Chronic) Idiopathic pulmonary fibrosis (Chronic) 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 GI CONCERNED AND FEELS SCOPE IS NECESSARY Surgical History S/P patent foramen ovale closure (Resolved) Lung transplant status (Chronic) Hx of heart artery stent (Chronic) S/P MITCHELL to LAD and circumflex after NSTEMI in 05/2018 History of cardiac cath STENTS X2 MAY 2018 (SEE [facility] [place] [place] RECORD ) Family History Father , in his seventies of cancer No problems noted. Mother , age 88 of CHF No problems noted. Daughter Age: 45 No problems noted. Son Age: 44 No problems noted. Other No significant family history Social History Preferred Language: Marshallese Communication Ability: Effective Vocational Training Teacher Required: No Beliefs That Will Affect Care: None marital status: Current Living Situation: Spouse current occupational status: retired Feels Safe at Home: Yes Smoking Status: Former smoker Tobacco Type: cigarettes Cigarettes Per Day: HX OF BRIEF SOCIAL USE WHILE IN , QUIT 45 YEARS AGO Do You Dip or Chew Tobacco: No Smoking End Date: 1972 Second Hand Exposure: No Hx Alcohol Use: Yes (3 drinks a day. Last drink Last night) Alcohol type: hard liquor Hx Substance Use: No caffeine: Yes (1 cup in am) Physical Exam Constitutional: + ill appearing (Chronically ill in appearance); no acute distress Eyes: Right sclera/pupil laterally displaced with disconjugate gaze Respiratory: Coarse breath sounds in the right lung, left lung (transplanted lung) is clear to auscultation Cardiovascular: Rate/Rhythm: regular rate Heart Sounds: no murmur E xtremities: + edema (1-2+ lower leg/ankle/pedal edema) Gastrointestinal (Abdomen): normal bowel sounds, soft, nontender, no hepatosplenomegaly Neurologic: moves all extremities; no focal motor deficits Conversant, follows commands Results & Data Vital Signs (Past 12 Hours) Vital Signs Temp Pulse Resp BP Pulse Ox 10/27/18 15:55 176/89 H 10/27/18 15:30 74 17 10/27/18 15:20 72 15 100 10/27/18 15:10 80 19 100 10/27/18 15:00 95 H 17 87 L 10/27/18 14:50 68 21 97 10/27/18 14:40 70 17 99 10/27/18 14:30 81 15 98 10/27/18 14:20 84 24 98 10/27/18 14:15 77 21 170/82 H 100 10/27/18 14:10 79 27 H 97 10/27/18 14:02 86 24 100 10/27/18 13:50 69 19 99 10/27/18 13:40 79 25 H 99 10/27/18 13:30 75 17 99 10/27/18 13:20 78 12 99 10/27/18 13:10 83 23 97 10/27/18 13:00 71 27 H 98 10/27/18 12:50 74 19 98 10/27/18 12:40 70 16 99 10/27/18 12:31 87 21 96 10/27/18 12:17 96 10/27/18 11:45 37.1 C 94 H 20 183/66 H 95 10/27/18 11:42 98 Laboratory Results Cardiac Enzymes 10/27/18 Range/Units 12:42 AST 16 (15-37) U/L Troponin I 0.126 H* (0-0.045) ng/ml Coagulation 10/27/18 Range/Units 12:42 PT 10.6 (9.0-12.0) Seconds APTT 24.2 (21.0-31.0) Seconds CBC 10/27/18 Range/Units 12:42 WBC 5.19 (4.8-10.8) K/uL RBC 2.66 L (4.7-6.1) M/uL Hgb 9.2 L (14.0-18.0) g/dL Hct 27.9 L (42-52) % Plt Count 128 L (130-400) K/uL Neut # (Auto) 3.98 (1.4-6.5) K/uL Lymph # (Auto) 0.32 L (1.2-3.4) K/uL Lake # (Auto) 0.64 H (0.11-0.59) K/uL Eos # (Auto) 0.22 (0-0.5) K/uL Baso # (Auto) 0.02 (0-0.2) K/uL Comprehensive Metabolic Panel 10/27/18 Range/Units 12:42 Sodium 144 (136-145) mmol/L Potassium 4.0 (3.5-5.1) mmol/L Chloride 115 H (98-107) mmol/L Carbon Dioxide 19 L (21-32) mmol/L BUN 35 H (7-18) mg/dl Creatinine 2.69 H (0.6-1.4) mg/dl Glucose 84 (70-99) mg/dl Calcium 8.6 (8.5-10.1) mg/dl AST 16 (15-37) U/L ALT 17 (12-78) U/L Alkaline Phosphatase 81 (45-117) U/L Total Protein 6.0 L (6.4-8.2) gm/dl Albumin 3.0 L (3.4-5.0) gm/dl Intake and Output 10/27/18 10/27/18 10/27/18 06:59 14:59 22:59 Other: Weight 81 kg Patient Weight 10/28/18 06:59 Weight 81 kg Diagnostic Findings EKG performed 10/27/2018 at 1219: Atrial fibrillation at 60 bpm, age-indeterminate anterior infarction pattern, deep T wave inversions in the anterior precordial leads as well as V5 and V6. Compared to the prior tracing which are reviewed from 10/12/2018 atrial fibrillation is replaced sinus rhythm, T wave inversion inversions previously noted in the anterior precordial leads V2 and V3, and are now noted in V4 V5 is well. (1) Volume overload Hypervolemia type: unspecified Qualified Code(s): E87.70 - Fluid overload, unspecified
[2018-10-27] MEDS ORDERED: MAGNESIUM SULFATE / D5W 1 GM/100 ML BAG IV ONE (18:00)
[2018-10-27] MEDS ORDERED: SULFA/TRIMETH 400/80MG TAB PO SCH (18:15)
--- NOTE | 2018-10-27 18:17 | Emergency Department Note ---
Entered by Otoniel Campos acting as a scribe for History of Present Illness General Chief complaint: Shortness of Breath/Dyspnea Stated complaint: SOB, RETAINING FLUIDS, VOMITING Time Seen by Provider: 10/27/18 12:06 Source: patient Limitations: no limitations History of Present Illness Onset (ago): day(s) 1 Location: chest Pain Consistency: + intermittent Relieved By: + none Associated symptoms: + denies other symptoms (blood in vomit, gaining weight), + cough and + other (swelling in legs); no chest pain The patient is a 77 white male w/ PMHx CAD s/p PCI and MITCHELL to LAD and circumflex for NSTEMI in 05/2018, H/O GI bleed on triple therapy, PFO s/p closure, idiopathic pulmonary fibrosis s/p L lung transplant in 2012 at [facility], CKD V no yet on HD, GERD, H/O CVA, Diabetes, chronic anemia, 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 The patient states he was in the bathroom yesterday and started to get sick. He states he vomited once and denies blood in the vomit. He states had has some abdominal pain but denies any abdominal pain right now. He notes he has a cough sometimes that produces white phlegm. The patient notes he is retaining water and states he has some swelling in his legs. He states he takes 40 mg of Lasixs in the morning. He states his home nurse said he had some wheezing this morning. The patient denies chest pain, taking any medicine today, gaining weight, and using oxygen. The patient notes he wears a life vest and states he did not receive any shocks from the vest. The patient states he received radiation for his skin cancer. He states he had a CT scan which showed something in his left kidney. Home Medications Home Medications Medication Instructions Recorded Confirmed Type acetaminophen [Tylenol Extra 500 mg PO Q6H PRN 05/09/18 10/27/18 History Strength] acyclovir 400 mg PO QAM 05/09/18 10/27/18 History albuterol sulfate 2.5 mg INHALATION BID 05/09/18 10/27/18 History aspirin 81 mg PO QAM 05/09/18 10/27/18 History cholecalciferol (vitamin D3) 1,000 unit PO QAM 05/09/18 10/27/18 History doxazosin 8 mg PO QAM 05/09/18 10/27/18 History fluticasone propion-salmeterol 1 inh INHALATION Q12H 05/09/18 10/27/18 History [Advair Diskus] furosemide [Lasix] 40 mg PO QAM 05/09/18 10/27/18 History labetalol 100 mg PO BID 05/09/18 10/27/18 History montelukast [Singulair] 10 mg PO HS 05/09/18 10/27/18 History mycophenolate sodium [Myfortic] 360 mg PO BID 05/09/18 10/27/18 History omega-3 acid ethyl esters [Lovaza] 2 cap PO BID 05/09/18 10/27/18 History rosuvastatin [Crestor] 40 mg PO HS 05/09/18 10/27/18 History tacrolimus [Prograf] 0.5 mg PO BID 05/09/18 10/27/18 History clopidogrel 75 mg PO QAM 07/21/18 10/27/18 History fluoxetine 40 mg PO QAM 10/04/18 10/27/18 History pantoprazole 40 mg PO BID 30 Days #60 tab 10/12/18 10/27/18 Rx azithromycin 250 mg tablet 250 mg PO QAM 10/19/18 10/27/18 History insulin lispro (U- 100) 100 See Rx Instructions SQ TID PRN 10/19/18 10/27/18 History unit/mL subcutaneous pen magnesium 71.5 mg (magnesium 143 mg PO QAM 10/19/18 10/27/18 History chloride) tablet,delayed release posaconazole 100 mg tablet,delayed 300 mg PO TID 10/19/18 10/27/18 History release prednisone 5 mg tablet 5 mg PO QAM 10/19/18 10/27/18 History sodium bicarbonate 650 mg tablet 650 mg PO TID tab 10/19/18 10/27/18 History epoetin nicholas [Epogen] 0 unit SUBCUT MONTHLY 10/27/18 10/27/18 History sulfamethoxazole-trimethoprim 1 tab PO 2XWK 10/27/18 10/27/18 History tobramycin with nebulizer 150 mg INHALATION Q12H 10/27/18 10/27/18 History Allergies Allergy/AdvReac Type Severity Reaction Status Date / Time levofloxacin Allergy Intermediate ANAPHYLAXIS Verified 10/27/18 12:18 oxycodone Allergy Intermediate ANAPHYLAXIS Verified 10/27/18 12:18 cat dander Allergy Unknown CHEST Verified 10/27/18 12:18 TIGHTNESS Past Med/Surg History Medical History Hyperglycemia (Chronic) Paroxysmal atrial fibrillation (Chronic) Idiopathic pulmonary fibrosis (Chronic) 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 GI CONCERNED AND FEELS SCOPE IS NECESSARY Surgical History S/P patent foramen ovale closure (Resolved) Lung transplant status (Chronic) Hx of heart artery stent (Chronic) S/P MITCHELL to LAD and circumflex after NSTEMI in 05/2018 History of cardiac cath STENTS X2 MAY 2018 (SEE [facility] RECORD ) Family History Father , in his seventies of cancer No problems noted. Mother , age 88 of CHF No problems noted. Daughter Age: 45 No problems noted. Son Age: 44 No problems noted. Other No significant family history Social History Preferred Language: [place] Communication Ability: Effective House Builder Required: No Beliefs That Will Affect Care: None marital status: Current Living Situation: Spouse current occupational status: retired Feels Safe at Home: Yes Smoking Status: Former smoker Tobacco Type: cigarettes Cigarettes Per Day: HX OF BRIEF SOCIAL USE WHILE IN , QUIT 45 YEARS AGO Do You Dip or Chew Tobacco: No Smoking End Date: 1973 Second Hand Exposure: No Hx Alcohol Use: Yes (3 drinks a day. Last drink Last night) Alcohol type: hard liquor Hx Substance Use: No caffeine: Yes (1 cup in am) Review of Systems See HPI for pertinent positives & negatives. and A total of 10 systems reviewed and were otherwise negative Physical Exam Vital Signs Vital Signs - 24 hr 10/27/18 12:40 10/27/18 12:50 10/27/18 13:00 Temperature Temperature Source Pulse Rate 70 74 71 Pulse Rate [Right Radial] Pulse Rate from SpO2 Sensor 75 69 72 Pulse Rhythm [Right Radial] Pulse Strength [Right Radial] Respiratory Rate 16 19 27 H Respiratory Effort / Characteristics Respiratory Depth Respiratory Pattern Blood Pressure Blood Pressure [Left Arm] Blood Pressure Mean Blood Pressure Mean [Left Arm] Blood Pressure Position [Left Arm] Pulse Oximetry 99 98 98 Oxygen Delivery Method 10/27/18 13:10 10/27/18 13:20 10/27/18 13:30 Temperature Temperature Source Pulse Rate 83 78 75 Pulse Rate [Right Radial] Pulse Rate from SpO2 Sensor 81 76 66 Pulse Rhythm [Right Radial] Pulse Strength [Right Radial] Respiratory Rate 23 12 17 Respiratory Effort / Characteristics Respiratory Depth Respiratory Pattern Blood Pressure Blood Pressure [Left Arm] Blood Pressure Mean Blood Pressure Mean [Left Arm] Blood Pressure Position [Left Arm] Pulse Oximetry 97 99 99 Oxygen Delivery Method 10/27/18 13:40 10/27/18 13:50 10/27/18 14:02 Temperature Temperature Source Pulse Rate 79 69 86 Pulse Rate [Right Radial] Pulse Rate from SpO2 Sensor 81 72 87 Pulse Rhythm [Right Radial] Pulse Strength [Right Radial] Respiratory Rate 25 H 19 24 Respiratory Effort / Characteristics Respiratory Depth Respiratory Pattern Blood Pressure Blood Pressure [Left Arm] Blood Pressure Mean Blood Pressure Mean [Left Arm] Blood Pressure Position [Left Arm] Pulse Oximetry 99 99 100 Oxygen Delivery Method 10/27/18 14:10 10/27/18 14:15 10/27/18 14:20 Temperature Temperature Source Pulse Rate 79 77 84 Pulse Rate [Right Radial] Pulse Rate from SpO2 Sensor 78 79 85 Pulse Rhythm [Right Radial] Pulse Strength [Right Radial] Respiratory Rate 27 H 21 24 Respiratory Effort / Characteristics Respiratory Depth Respiratory Pattern Blood Pressure 170/82 H Blood Pressure [Left Arm] Blood Pressure Mean 111 Blood Pressure Mean [Left Arm] Blood Pressure Position [Left Arm] Pulse Oximetry 97 100 98 Oxygen Delivery Method 10/27/18 14:30 10/27/18 14:36 10/27/18 14:40 Temperature Temperature Source Pulse Rate 81 70 Pulse Rate [Right Radial] Pulse Rate from SpO2 Sensor 80 70 Pulse Rhythm [Right Radial] Pulse Strength [Right Radial] Respiratory Rate 15 17 Respiratory Effort / Characteristics Respiratory Depth Respiratory Pattern Blood Pressure Blood Pressure [Left Arm] Blood Pressure Mean Blood Pressure Mean [Left Arm] Blood Pressure Position [Left Arm] Pulse Oximetry 98 99 Oxygen Delivery Method Room Air 10/27/18 14:50 10/27/18 15:00 10/27/18 15:10 Temperature Temperature Source Pulse Rate 68 95 H 80 Pulse Rate [Right Radial] Pulse Rate from SpO2 Sensor 67 81 79 Pulse Rhythm [Right Radial] Pulse Strength [Right Radial] Respiratory Rate 21 17 19 Respiratory Effort / Characteristics Respiratory Depth Respiratory Pattern Blood Pressure Blood Pressure [Left Arm] Blood Pressure Mean Blood Pressure Mean [Left Arm] Blood Pressure Position [Left Arm] Pulse Oximetry 97 87 L 100 Oxygen Delivery Method 10/27/18 15:20 10/27/18 15:30 10/27/18 15:55 Temperature Temperature Source Pulse Rate 72 74 Pulse Rate [Right Radial] Pulse Rate from SpO2 Sensor 73 Pulse Rhythm [Right Radial] Pulse Strength [Right Radial] Respiratory Rate 15 17 Respiratory Effort / Characteristics Respiratory Depth Respiratory Pattern Blood Pressure 176/89 H Blood Pressure [Left Arm] Blood Pressure Mean 118 Blood Pressure Mean [Left Arm] Blood Pressure Position [Left Arm] Pulse Oximetry 100 Oxygen Delivery Method 10/27/18 17:50 10/27/18 19:15 10/27/18 19:20 Temperature 36.6 C Temperature Source Oral Pulse Rate 71 Pulse Rate [Right Radial] 76 89 Pulse Rate from SpO2 Sensor Pulse Rhythm [Right Radial] Pulse Strength [Right Radial] Respiratory Rate 16 18 Respiratory Effort / Characteristics Non-Labored Spontaneous Non-Labored Respiratory Depth Normal Respiratory Pattern Regular Blood Pressure Blood Pressure [Left Arm] 186/79 H Blood Pressure Mean Blood Pressure Mean [Left Arm] 114 Blood Pressure Position [Left Arm] Pulse Oximetry 96 94 Oxygen Delivery Method Room Air Room Air 10/27/18 20:00 10/27/18 20:03 10/27/18 22:45 Temperature 36.9 C Temperature Source Oral Pulse Rate Pulse Rate [Right Radial] 76 74 Pulse Rate from SpO2 Sensor Pulse Rhythm [Right Radial] Pulse Strength [Right Radial] Respiratory Rate 16 18 Respiratory Effort / Characteristics Non-Labored Spontaneous SOB on Exertion Non-Labored Respiratory Depth Normal Respiratory Pattern Regular Blood Pressure Blood Pressure [Left Arm] 161/80 H Blood Pressure Mean Blood Pressure Mean [Left Arm] 107 Blood Pressure Position [Left Arm] Pulse Oximetry 98 100 Oxygen Delivery Method Room Air Room Air 10/27/18 22:57 10/28/18 00:00 10/28/18 00:15 Temperature Temperature Source Pulse Rate 85 Pulse Rate [Right Radial] 87 85 Pulse Rate from SpO2 Sensor Pulse Rhythm [Right Radial] Regular Pulse Strength [Right Radial] Normal Respiratory Rate Respiratory Effort / Characteristics Respiratory Depth Respiratory Pattern Blood Pressure Blood Pressure [Left Arm] 170/79 H 158/69 H Blood Pressure Mean Blood Pressure Mean [Left Arm] 109 98 Blood Pressure Position [Left Arm] Lying Lying Pulse Oximetry Oxygen Delivery Method 10/28/18 03:54 10/28/18 07:18 10/28/18 07:35 Temperature 37.5 C 36.6 C Temperature Source Oral Oral Pulse Rate Pulse Rate [Right Radial] 86 78 77 Pulse Rate from SpO2 Sensor Pulse Rhythm [Right Radial] Regular Pulse Strength [Right Radial] Normal Respiratory Rate 22 16 18 Respiratory Effort / Characteristics Non-Labored SOB on Exertion Non-Labored Spontaneous Respiratory Depth Normal Respiratory Pattern Regular Blood Pressure Blood Pressure [Left Arm] 158/63 H 168/72 H Blood Pressure Mean Blood Pressure Mean [Left Arm] 94 104 Blood Pressure Position [Left Arm] Lying Lying Pulse Oximetry 98 98 98 Oxygen Delivery Method Room Air Room Air Room Air 10/28/18 08:00 10/28/18 11:35 Temperature 36.3 C L Temperature Source Oral Pulse Rate Pulse Rate [Right Radial] 67 Pulse Rate from SpO2 Sensor Pulse Rhythm [Right Radial] Pulse Strength [Right Radial] Respiratory Rate 18 Respiratory Effort / Characteristics Non-Labored Spontaneous SOB on Exertion Respiratory Depth Normal Respiratory Pattern Blood Pressure Blood Pressure [Left Arm] 123/67 Blood Pressure Mean Blood Pressure Mean [Left Arm] 85 Blood Pressure Position [Left Arm] Lying Pulse Oximetry 100 Oxygen Delivery Method Room Air Room Air GENERAL: Well appearing, well nourished, NAD, non-toxic. EYE EXAM: Normal conjunctiva. PERRL, no anisocoria and EOM's grossly intact w/o pain. OROPHARYNX: Moist mucous membranes. Normal dentition. NECK: Supple, no nuchal rigidity, no adenopathy, non-tender. no signs of meningismus. LUNGS: Clear to auscultation. Normal chest wall mechanics. Some crackles at base of lungs. HEART: NSR, no MRG. CHEST: Life vest in place. ABDOMEN: Abdomen soft, non-tender, normo-active bowel sounds, no masses, no rebound or guarding. BACK: No CVA TTP. SKIN: No rashes and no bruising. UPPER EXTREMITIES: Upper extremities are grossly normal. LOWER EXTREMITIES: No calf pain. 2-3+ lower extremity edema. Negative mathew's sign. NEURO EXAM: Cranial nerves II-XII grossly intact, normal speech. Moves all 4 extremities on command w/o issue. Course 1209: The patient was evaluated in room C11B, and a complete history and physical examination were performed. 1355: I spoke with Humaira Weathers and Dr. Basurto will admit the patient for further evaluation. 1405: I spoke with Dr. Howard, cardiology. He states he will review the patient's records and will see the patient. 1422: I reevaluated the patient. I told the patient he will be admitted and he agrees with the plan. Administered Medications Acetaminophen (Tylenol) 650 mg PO Q4H PRN PRN Reason: Pain or Fever Stop: 11/26/18 17:06 Last Admin: 10/28/18 02:01 Dose: 650 mg Documented by: [id number] Acyclovir (Zovirax) [address] [facility] Stop: 11/27/18 08:59 Last Admin: 10/28/18 08:37 Dose: 400 mg Documented by: [id number] Albuterol (Ventolin 0.5% 2.5mg/0.5ml) 2.5 mg INH BIDR [facility] Stop: 11/26/18 19:59 Last Admin: 10/28/18 07:08 Dose: 2.5 mg Documented by: [id number] Admin: 10/27/18 19:14 Dose: 2.5 mg Documented by: [id number] Aspirin (Ecotrin Ectab) 81 mg PO QAM [facility] Stop: 11/27/18 08:59 Last Admin: 10/28/18 08:37 Dose: 81 mg Documented by: [id number] Azithromycin (Zithromax) 250 mg PO MoWeFr@0900 [facility] Stop: 11/27/18 08:59 Last Admin: 10/28/18 08:37 Dose: 250 mg Documented by: [id number] Clopidogrel Bisulfate (Plavix) 75 mg PO QAM [facility] Stop: 11/27/18 08:59 Last Admin: 10/28/18 08:37 Dose: 75 mg Documented by: [id number] Doxazosin Mesylate (Cardura) 8 mg PO QAM [facility] Stop: 11/27/18 08:59 Last Admin: 10/28/18 08:37 Dose: 8 mg Documented by: [id number] Fish Oil ([place]-3 (Purified Fish Oil)) 2 gm PO BID [facility] Stop: 11/26/18 20:59 Last Admin: 10/28/18 08:37 Dose: 2 gm Documented by: [id number] Admin: 10/27/18 21:32 Dose: 2 gm Documented by: [id number] Fluox[facility] ([facility]zac) [facility] Stop: 11/27/18 08:59 Last Admin: 10/28/18 08:37 Dose: 40 mg Documented by: [id number] Tobramycin Sulfate 150 mg/ (Syringe) 3.75 mls @ 0.033 mls/min INH Q12R [facility] Stop: 11/26/18 19:59 Last Admin: 10/28/18 07:18 Dose: 0.033 mls/min Documented by: [id number] Admin: 10/27/18 20:02 Dose: 0.033 mls/min Documented by: [id number] Promethazine HCl 12.5 mg/ (Sodium Chloride) 50.5 mls @ 202 mls/hr IV Q6H PRN PRN Reason: Nausea And Vomiting Stop: 11/27/18 00:56 Last Infusion: 10/28/18 02:00 Dose: 0 mls/hr Documented by: [id number] Admin: 10/28/18 01:27 Dose: 202 mls/hr Documented by: [id number] Insulin Aspart (Novolog Flexpen) 0 units SC ACHS [facility] Stop: 11/26/18 17:59 Last Admin: 10/28/18 08:38 Dose: 3 units Documented by: [id number] Cosigned by: [id number] Admin: 10/27/18 21:40 Dose: Not Given Documented by: [id number] Cosigned by: [id number] Admin: 10/27/18 19:48 Dose: Not Given Documented by: [id number] Cosigned by: [id number] Labetalol HCl (Normodyne) 100 mg PO BID [facility] Stop: 11/26/18 20:59 Last Admin: 10/28/18 08:37 Dose: 100 mg Documented by: [id number] Admin: 10/27/18 21:35 Dose: 100 mg Documented by: [id number] Magnesium Chloride (Slow-Mag) 64 [facility] Stop: 11/27/18 08:59 Last Admin: 10/28/18 08:36 Dose: 64 mg Documented by: [id number] Miscellaneous (Order Awaiting Action) 1 ea N/A QS [facility] Stop: 11/27/18 00:00 Last Admin: 10/28/18 08:27 Dose: Not Given Documented by: [id number] Admin: 10/28/18 00:28 Dose: Not Given Documented by: [id number] Montelukast Sodium (Singulair) 10 mg PO [facility] Stop: 11/26/18 20:59 Last Admin: 10/27/18 21:36 Dose: 10 mg Documented by: [id number] Mycophenolate Sodium (Myfortic) 360 mg PO BID [facility] Stop: 11/26/18 20:59 Last Admin: 10/28/18 08:37 Dose: 360 mg Documented by: [id number] Admin: 10/27/18 21:34 Dose: 360 mg Documented by: [id number] Pantoprazole Sodium (Protonix) 40 mg PO BID [facility] Stop: 11/26/18 20:59 Last Admin: 10/28/18 08:38 Dose: 40 mg Documented by: [id number] Admin: 10/27/18 21:32 Dose: 40 mg Documented by: [id number] Prednisone (Prednisone) [address] [facility] Stop: 11/27/18 08:59 Last Admin: 10/28/18 08:37 Dose: 5 mg Documented by: [id number] Rosuvastatin Calcium (Crestor) 40 mg PO [facility] Stop: 11/26/18 20:59 Last Admin: 10/27/18 21:34 Dose: 40 mg Documented by: [id number] Fluticasone/Salmeterol (Advair Diskus 500/50) 1 puffs INH Q12H [facility] Stop: 11/26/18 20:59 Last Admin: 10/28/18 08:36 Dose: 1 puffs Documented by: [id number] Admin: 10/27/18 21:30 Dose: 1 puffs Documented by: [id number] Sodium Bicarbonate (Sodium Bicarbonate) 650 mg PO TID [facility] Stop: 11/26/18 20:59 Last Admin: 10/28/18 08:38 Dose: 650 mg Documented by: [id number] Admin: 10/27/18 21:31 Dose: 650 mg Documented by: [id number] Tacrolimus (Prograf) 0.5 mg PO BID [facility] Stop: 11/26/18 20:59 Last Admin: 10/28/18 08:38 Dose: 0.5 mg Documented by: [id number] Admin: 10/27/18 21:31 Dose: 0.5 mg Documented by: [id number] Torsemide (Demadex) 10 mg PO QAM [facility] Stop: 11/27/18 10:29 Last Admin: 10/28/18 11:19 Dose: 10 mg Documented by: [id number] Trimethoprim/Sulfamethoxazole (Septra 400/80mg Tab) 1 tab PO MoTh@0900 [facility] Stop: 11/26/18 18:14 Last Admin: 10/27/18 19:50 Dose: 1 tab Documented by: [id number] Vitamin D (Vitamin D3) 1,000 units PO QAM [facility] Stop: 11/27/18 08:59 Last Admin: 10/28/18 08:38 Dose: 1,000 units Documented by: [id number] Discontinued Medications Epoetin Nicholas (Procrit) 4,000 units SQ ONE ONE Stop: 10/28/18 10:27 Last Admin: 10/28/18 12:28 Dose: 4,000 units Documented by: [id number] Furosemide (Lasix) 40 mg IV NOW STA Stop: 10/27/18 12:18 Last Admin: 10/27/18 13:00 Dose: 40 mg Documented by: [id number] Hydralazine HCl (Hydralazine Hcl) 10 mg IV NOW STA Stop: 10/27/18 23:01 Last Admin: 10/27/18 23:15 Dose: 10 mg Documented by: [id number] Magnesium Sulfate/Dextrose (Magnesium Sulfate / D5w) 1 gm in 100 mls @ 100 mls/hr IV ONE ONE Stop: 10/27/18 18:59 Last Infusion: 10/27/18 20:20 Dose: 0 mls/hr Documented by: [id number] Admin: 10/27/18 18:43 Dose: 100 mls/hr Documented by: [id number] Potassium Chloride (Klor-Con M10) 10 meq PO NOW STA Stop: 10/28/18 10:03 Last Admin: 10/28/18 11:18 Dose: 10 meq Documented by: [id number] Medical Decision Making Medical Records Attestation: I reviewed the patient's medical records. Home Medications Current Medication List: was personally reviewed by me Laboratory Data Attestation: I reviewed the patient's lab results. Result diagrams: 10/28/18 07:23 10/28/18 07:23 Lab Results 10/27/18 10/27/18 10/27/18 Range/Units 12:42 12:42 12:42 WBC 5.19 (4.8-10.8) K/uL RBC 2.66 L (4.7-6.1) M/uL Hgb 9.2 L (14.0-18.0) g/dL Hct 27.9 L (42-52) % MCV 104.9 H (80-100) fL MCH 34.6 H (25-34) pg MCHC 33.0 (32-36) g/dL RDW Std Deviation 57.6 H (36.4-46.3) fL RDW Coeff of Ros 15.1 H (11.5-14.5) % Plt Count 128 L (130-400) K/uL MPV 11.3 H (7.4-10.4) fL Immature Gran % (Auto) 0.2 % Neut % (Auto) 76.7 % Lymph % (Auto) 6.2 % Gordon % (Auto) 12.3 % Eos % (Auto) 4.2 % Baso % (Auto) 0.4 % Immature Gran # (Auto) 0.01 (0.00-0.02) K/uL Neut # (Auto) 3.98 (1.4-6.5) K/uL Lymph # (Auto) 0.32 L (1.2-3.4) K/uL Gordon # (Auto) 0.64 H (0.11-0.59) K/uL Eos # (Auto) 0.22 (0-0.5) K/uL Baso # (Auto) 0.02 (0-0.2) K/uL PT 10.6 (9.0-12.0) Seconds INR 1.0 (0.9-1.1) APTT 24.2 (21.0-31.0) Seconds PTT Ratio 0.9 Sodium 144 (136-145) mmol/L Potassium 4.0 (3.5-5.1) mmol/L Chloride 115 H (98-107) mmol/L Carbon Dioxide 19 L (21-32) mmol/L Anion Gap 10.0 (3-11) BUN 35 H (7-18) mg/dl Creatinine 2.69 H (0.6-1.4) mg/dl Est Cr Clr Drug Dosing Not Reportable Est GFR ( Amer) 25.5 Est GFR (Non-Af Amer) 22.0 BUN/Creatinine Ratio 13.1 (10-20) Glucose 84 (70-99) mg/dl POC Glucose (70-99) Calcium 8.6 (8.5-10.1) mg/dl Phosphorus 3.4 (2.5-4.9) mg/dl Magnesium 1.7 L (1.8-2.4) mg/dl Total Bilirubin 0.6 (0.2-1) mg/dl AST 16 (15-37) U/L ALT 17 (12-78) U/L Alkaline Phosphatase 81 (45-117) U/L Troponin I 0.126 H* (0-0.045) ng/ml NT-Pro-B Natriuret Pep > 42497 H (0-1800) pg/ml Total Protein 6.0 L (6.4-8.2) gm/dl Albumin 3.0 L (3.4-5.0) gm/dl Globulin 3.0 (2.5-4.0) gm/dl Albumin/Globulin Ratio 1.0 (0.9-2) Urine Color Urine Appearance (Clear) Urine pH (4.5-7.5) Ur Specific [place] (1.000-1.030) Urine Protein (Negative) Urine Glucose (UA) (Negative) Urine Ketones (Negative) Urine Blood (Negative) Urine Nitrite (Negative) Urine Bilirubin (Negative) Urine Urobilinogen (Negative) Ur Leukocyte Esterase (Negative) Urine WBC (Auto) (0-5) /hpf Urine RBC (Auto) (0-4) /hpf U Hyaline Cast (Auto) (0-5) /lpf U Epithel Cells (Auto) (0-5) /lpf Urine Bacteria (Auto) (Negative) Stl C. diff Tox B Gene (Neg) Stl C.difficile Tox A&B (Negative) 10/27/18 10/27/18 10/27/18 Range/Units 14:10 17:26 18:46 WBC (4.8-10.8) K/uL RBC (4.7-6.1) M/uL Hgb (14.0-18.0) g/dL Hct (42-52) % MCV (80-100) fL MCH (25-34) pg MCHC (32-36) g/dL RDW Std Deviation (36.4-46.3) fL RDW Coeff of Ros (11.5-14.5) % Plt Count (130-400) K/uL MPV (7.4-10.4) fL Immature Gran % (Auto) % Neut % (Auto) % Lymph % (Auto) % Gordon % (Auto) % Eos % (Auto) % Baso % (Auto) % Immature Gran # (Auto) (0.00-0.02) K/uL Neut # (Auto) (1.4-6.5) K/uL Lymph # (Auto) (1.2-3.4) K/uL Gordon # (Auto) (0.11-0.59) K/uL Eos # (Auto) (0-0.5) K/uL Baso # (Auto) (0-0.2) K/uL PT (9.0-12.0) Seconds INR (0.9-1.1) APTT (21.0-31.0) Seconds PTT Ratio Sodium (136-145) mmol/L Potassium (3.5-5.1) mmol/L Chloride (98-107) mmol/L Carbon Dioxide (21-32) mmol/L Anion Gap (3-11) BUN (7-18) mg/dl Creatinine (0.6-1.4) mg/dl Est Cr Clr Drug Dosing Est GFR ( Amer) Est GFR (Non-Af Amer) BUN/Creatinine Ratio (10-20) Glucose (70-99) mg/dl POC Glucose 87 (70-99) Calcium (8.5-10.1) mg/dl Phosphorus (2.5-4.9) mg/dl Magnesium (1.8-2.4) mg/dl Total Bilirubin (0.2-1) mg/dl AST (15-37) U/L ALT (12-78) U/L Alkaline Phosphatase (45-117) U/L Troponin I 0.119 H* (0-0.045) ng/ml NT-Pro-B Natriuret Pep (0-1800) pg/ml Total Protein (6.4-8.2) gm/dl Albumin (3.4-5.0) gm/dl Globulin (2.5-4.0) gm/dl Albumin/Globulin Ratio (0.9-2) Urine Color Yellow Urine Appearance Clear (Clear) Urine pH 5.0 (4.5-7.5) Ur Specific [place] 1.015 (1.000-1.030) Urine Protein 1+ H (Negative) Urine Glucose (UA) Negative (Negative) Urine Ketones Negative (Negative) Urine Blood Negative (Negative) Urine Nitrite Negative (Negative) Urine Bilirubin Negative (Negative) Urine Urobilinogen Negative (Negative) Ur Leukocyte Esterase Negative (Negative) Urine WBC (Auto) 0 (0-5) /hpf Urine RBC (Auto) 0-4 (0-4) /hpf U Hyaline Cast (Auto) 1-5 (0-5) /lpf U Epithel Cells (Auto) 10-20 H (0-5) /lpf Urine Bacteria (Auto) Negative (Negative) Stl C. diff Tox B Gene (Neg) Stl C.difficile Tox A&B (Negative) 10/27/18 10/27/18 10/28/18 Range/Units 19:44 20:45 00:12 WBC (4.8-10.8) K/uL RBC (4.7-6.1) M/uL Hgb (14.0-18.0) g/dL Hct (42-52) % MCV (80-100) fL MCH (25-34) pg MCHC (32-36) g/dL RDW Std Deviation (36.4-46.3) fL RDW Coeff of Ros (11.5-14.5) % Plt Count (130-400) K/uL MPV (7.4-10.4) fL Immature Gran % (Auto) % Neut % (Auto) % Lymph % (Auto) % Gordon % (Auto) % Eos % (Auto) % Baso % (Auto) % Immature Gran # (Auto) (0.00-0.02) K/uL Neut # (Auto) (1.4-6.5) K/uL Lymph # (Auto) (1.2-3.4) K/uL Gordon # (Auto) (0.11-0.59) K/uL Eos # (Auto) (0-0.5) K/uL Baso # (Auto) (0-0.2) K/uL PT (9.0-12.0) Seconds INR (0.9-1.1) APTT (21.0-31.0) Seconds PTT Ratio Sodium (136-145) mmol/L Potassium (3.5-5.1) mmol/L Chloride (98-107) mmol/L Carbon Dioxide (21-32) mmol/L Anion Gap (3-11) BUN (7-18) mg/dl Creatinine (0.6-1.4) mg/dl Est Cr Clr Drug Dosing Est GFR ( Amer) Est GFR (Non-Af Amer) BUN/Creatinine Ratio (10-20) Glucose (70-99) mg/dl POC Glucose 110 H (70-99) Calcium (8.5-10.1) mg/dl Phosphorus (2.5-4.9) mg/dl Magnesium (1.8-2.4) mg/dl Total Bilirubin (0.2-1) mg/dl AST (15-37) U/L ALT (12-78) U/L Alkaline Phosphatase (45-117) U/L Troponin I 0.123 H* (0-0.045) ng/ml NT-Pro-B Natriuret Pep (0-1800) pg/ml Total Protein (6.4-8.2) gm/dl Albumin (3.4-5.0) gm/dl Globulin (2.5-4.0) gm/dl Albumin/Globulin Ratio (0.9-2) Urine Color Urine Appearance (Clear) Urine pH (4.5-7.5) Ur Specific [place] (1.000-1.030) Urine Protein (Negative) Urine Glucose (UA) (Negative) Urine Ketones (Negative) Urine Blood (Negative) Urine Nitrite (Negative) Urine Bilirubin (Negative) Urine Urobilinogen (Negative) Ur Leukocyte Esterase (Negative) Urine WBC (Auto) (0-5) /hpf Urine RBC (Auto) (0-4) /hpf U Hyaline Cast (Auto) (0-5) /lpf U Epithel Cells (Auto) (0-5) /lpf Urine Bacteria (Auto) (Negative) Stl C. diff Tox B Gene Positive Cdiff Gene H (Neg) Stl C.difficile Tox A&B Negative Cdiff Toxin (Negative) 10/28/18 10/28/18 10/28/18 Range/Units 00:20 07:23 07:23 WBC 4.39 L (4.8-10.8) K/uL RBC 2.45 L (4.7-6.1) M/uL Hgb 8.6 L (14.0-18.0) g/dL Hct 25.5 L (42-52) % MCV 104.1 H (80-100) fL MCH 35.1 H (25-34) pg MCHC 33.7 (32-36) g/dL RDW Std Deviation 56.5 H (36.4-46.3) fL RDW Coeff of Ros 15.0 H (11.5-14.5) % Plt Count 113 L (130-400) K/uL MPV 10.4 (7.4-10.4) fL Immature Gran % (Auto) % Neut % (Auto) % Lymph % (Auto) % Gordon % (Auto) % Eos % (Auto) % Baso % (Auto) % Immature Gran # (Auto) (0.00-0.02) K/uL Neut # (Auto) (1.4-6.5) K/uL Lymph # (Auto) (1.2-3.4) K/uL Gordon # (Auto) (0.11-0.59) K/uL Eos # (Auto) (0-0.5) K/uL Baso # (Auto) (0-0.2) K/uL PT (9.0-12.0) Seconds INR (0.9-1.1) APTT (21.0-31.0) Seconds PTT Ratio Sodium 141 (136-145) mmol/L Potassium 3.4 L (3.5-5.1) mmol/L Chloride 111 H (98-107) mmol/L Carbon Dioxide 20 L (21-32) mmol/L Anion Gap 10.0 (3-11) BUN 34 H (7-18) mg/dl Creatinine 2.91 H (0.6-1.4) mg/dl Est Cr Clr Drug Dosing 24.1 Est GFR ( Amer) 23.2 Est GFR (Non-Af Amer) 20.0 BUN/Creatinine Ratio 11.5 (10-20) Glucose 107 H (70-99) mg/dl POC Glucose 109 H (70-99) Calcium 8.4 L (8.5-10.1) mg/dl Phosphorus (2.5-4.9) mg/dl Magnesium 1.7 L (1.8-2.4) mg/dl Total Bilirubin (0.2-1) mg/dl AST (15-37) U/L ALT (12-78) U/L Alkaline Phosphatase (45-117) U/L Troponin I (0-0.045) ng/ml NT-Pro-B Natriuret Pep (0-1800) pg/ml Total Protein (6.4-8.2) gm/dl Albumin (3.4-5.0) gm/dl Globulin (2.5-4.0) gm/dl Albumin/Globulin Ratio (0.9-2) Urine Color Urine Appearance (Clear) Urine pH (4.5-7.5) Ur Specific [place] (1.000-1.030) Urine Protein (Negative) Urine Glucose (UA) (Negative) Urine Ketones (Negative) Urine Blood (Negative) Urine Nitrite (Negative) Urine Bilirubin (Negative) Urine Urobilinogen (Negative) Ur Leukocyte Esterase (Negative) Urine WBC (Auto) (0-5) /hpf Urine RBC (Auto) (0-4) /hpf U Hyaline Cast (Auto) (0-5) /lpf U Epithel Cells (Auto) (0-5) /lpf Urine Bacteria (Auto) (Negative) Stl C. diff Tox B Gene (Neg) Stl C.difficile Tox A&B (Negative) 10/28/18 10/28/18 Range/Units 07:33 11:33 WBC (4.8-10.8) K/uL RBC (4.7-6.1) M/uL Hgb (14.0-18.0) g/dL Hct (42-52) % MCV (80-100) fL MCH (25-34) pg MCHC (32-36) g/dL RDW Std Deviation (36.4-46.3) fL RDW Coeff of Ros (11.5-14.5) % Plt Count (130-400) K/uL MPV (7.4-10.4) fL Immature Gran % (Auto) % Neut % (Auto) % Lymph % (Auto) % Gordon % (Auto) % Eos % (Auto) % Baso % (Auto) % Immature Gran # (Auto) (0.00-0.02) K/uL Neut # (Auto) (1.4-6.5) K/uL Lymph # (Auto) (1.2-3.4) K/uL Gordon # (Auto) (0.11-0.59) K/uL Eos # (Auto) (0-0.5) K/uL Baso # (Auto) (0-0.2) K/uL PT (9.0-12.0) Seconds INR (0.9-1.1) APTT (21.0-31.0) Seconds PTT Ratio Sodium (136-145) mmol/L Potassium (3.5-5.1) mmol/L Chloride (98-107) mmol/L Carbon Dioxide (21-32) mmol/L Anion Gap (3-11) BUN (7-18) mg/dl Creatinine (0.6-1.4) mg/dl Est Cr Clr Drug Dosing Est GFR ( Amer) Est GFR (Non-Af Amer) BUN/Creatinine Ratio (10-20) Glucose (70-99) mg/dl POC Glucose 122 H 144 H (70-99) Calcium (8.5-10.1) mg/dl Phosphorus (2.5-4.9) mg/dl Magnesium (1.8-2.4) mg/dl Total Bilirubin (0.2-1) mg/dl AST (15-37) U/L ALT (12-78) U/L Alkaline Phosphatase (45-117) U/L Troponin I (0-0.045) ng/ml NT-Pro-B Natriuret Pep (0-1800) pg/ml Total Protein (6.4-8.2) gm/dl Albumin (3.4-5.0) gm/dl Globulin (2.5-4.0) gm/dl Albumin/Globulin Ratio (0.9-2) Urine Color Urine Appearance (Clear) Urine pH (4.5-7.5) Ur Specific [place] (1.000-1.030) Urine Protein (Negative) Urine Glucose (UA) (Negative) Urine Ketones (Negative) Urine Blood (Negative) Urine Nitrite (Negative) Urine Bilirubin (Negative) Urine Urobilinogen (Negative) Ur Leukocyte Esterase (Negative) Urine WBC (Auto) (0-5) /hpf Urine RBC (Auto) (0-4) /hpf U Hyaline Cast (Auto) (0-5) /lpf U Epithel Cells (Auto) (0-5) /lpf Urine Bacteria (Auto) (Negative) Stl C. diff Tox B Gene (Neg) Stl C.difficile Tox A&B (Negative) Imaging Data Radiologist's Impression: Radiology results as stated below per my review and the radiologist's interpretation: XR chest 1V portable CLINICAL HISTORY: Dyspnea COMPARISON STUDY: 10/12/2018 FINDINGS: The heart remains enlarged. There is radiographic evidence of emphysema. There is a large right upper lobe bleb. There are chronic right mid and lower lung zone airspace opacities. There is a small right pleural effusion. The left lung is clear.[ There is chronic enlargement of the right pulmonary artery. IMPRESSION: 1. Cardiomegaly 2. Bullous emphysema on the right 3. Extensive chronic right mid and lower lung zone airspace opacities 4. Evidence of pulmonary arterial hypertension on the right 5. The left lung remains clear Electronically signed by: Bon Ariza M.D. 10/27/2018 12:48 PM ECG Data Attestation: I personally reviewed and interpreted this ECG as follows: Indication: SOB/dyspnea Rate (beats per minute): 68 Rhythm: atrial fibrillation Findings: + T-wave inversion (anteriorally and laterally and in the high la teral) Comparison ECG Date: from (10/12/18) Change: the following changes noted (worsenning of T wave invesions in lateral and high lateral leads) Blood Pressure Blood Pressure Findings: Elevated blood pressure Blood Pressure Disposition: further management by hospitalist ANDREW Narrative The patient is a 77 white male w/ PMHx CAD s/p PCI and MITHCELL to LAD and circumflex for NSTEMI in 05/2018, H/O GI bleed on triple therapy, PFO s/p closure, idiopathic pulmonary fibrosis s/p L lung transplant in 2012 at [facility], CKD V no yet on HD, GERD, H/O CVA, Diabetes, chronic anemia, 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 Differential diagnosis: Etiologies such as infections, reactive airway disease, COPD, pneumonia, pleural effusion, pulmonary edema, ARDS, pneumothorax, CHF, cardiac ischemia, cardiac tamponade, dysrhythmia, anemia, pulmonary embolism, musculoskeletal, gastrointestinal process, as well as others were entertained. Patient was seen and evaluated the bedside. The patient was relating that he was told by his home health nurse this that he was retaining some fluid. The patient does not appear to be in extremis. The patient was recently admitted to this hospital after a STEMI and then was actually transferred to [facility] for further evaluation and care. The patient does have a LifeVest in place. Unsure as to whether or not the patient is just had poor cardiac f unction or if this was just given the recent STEMI and concern for possible recurrence of V. fib or V. tach prior to having an AICD placed. The patient states that he has had no shocks administered. The patient states that he believes his weights have been the same. The patient states his been compliant with his medications. Patient does have a right upper extremity AV fistula which has not yet been used but the patient does have a prior history of CKD stage V. The patient believes he has been urinating okay. The patient does appear to have some fairly clear breath sounds but may be some scant crackles at the bases. Patient's EKG does show may be worsening the patient does have an elevated troponin but the patient does have a known history of CHF CKD. Patient's troponin is much improved compared to when he was transferred to [facility] given the patient's prior STEMI and cardiac catheterization. Patient does have an elevated BNP. Patient was given Lasix IV. Given the patient's multiple medical comorbidities associated worsening T wave inversions positive troponin and fluid retention with CKD I believe he would benefit further inpatient treatment. Also of note the patient is currently in A. fib and the patient has had bouts of paroxysmal A. fib but is not on anticoagulant medication. Patient has a prior history of GI bleed but the patient certainly does have an elevated chads 2 vasc, further discussion of anticoagulant medication will need to be had. Patient is already on dual antiplatelet therapy given the patient's recent STEMI and stent placement. I did speak to the hospitalist as well as the brand specialist who will evaluate the patient. Patient was admitted to medicine service. Impression & Plan Volume overload, CKD (chronic kidney disease), SOB (shortness of breath) Discharge Plan Visit Data *Final* Discharge Date/Time: 10/27/18 16:24 Chief Complaint: Shortness of Breath/Dyspnea Stated Complaint: SOB, RETAINING FLUIDS, VOMITING ED Provider: Braxton Tijerina Discharge Problem: Volume overload, CKD (chronic kidney disease), SOB (shortness of breath) Patient Disposition: Admitted As Inpatient Discharge Instructions Interventions: ED Discharge Assessment Last Done: 10/27/18 16:24 Discharge Problem: Volume overload Qualifiers: Hypervolemia type: unspecified Qualified Code(s): E87.70 - Fluid overload, unspecified The scribe's documentation has been prepared under my direction and personally reviewed by me in its entirety. I confirm that the note above accurately r eflects all work, treatment, procedures, and medical decision making performed by me.
[2018-10-27] MEDS: ALBUTEROL 0.5% NEB SOLN 2.5 MG/0.5 ML VIAL INH SCH (19:14)
[2018-10-27] MEDS: TOBRAMYCIN SULFATE INH SCH ×2 (19:15→20:02)
[2018-10-27] MEDS: INSULIN ASPART 100 UNITS/ML 3 ML PEN SC SCH ×2 (19:48→21:40)
[2018-10-27] MEDS ORDERED: MONTELUKAST SODIUM 10 MG TABLET PO SCH (21:00)
[2018-10-27] MEDS ORDERED: ROSUVASTATIN CALCIUM 20 MG TAB PO SCH (21:00)
[2018-10-27] MEDS: FLUTICASONE/SALMETEROL (ADVAIR) 500/50 INH 14 PUFF INH SCH (21:30)
[2018-10-27] MEDS: TACROLIMUS 0.5 MG CAP PO SCH (21:31)
[2018-10-27] MEDS: SODIUM BICARBONATE 650 MG TAB PO SCH (21:31)
[2018-10-27] MEDS: OMEGA-3 (PURIFIED FISH OIL) 1 GM CAP PO SCH (21:32)
[2018-10-27] MEDS: PANTOprazole 40 MG TAB PO SCH (21:32)
[2018-10-27] MEDS: MYCOPHENOLATE SODIUM 180 MG TAB PO SCH (21:34)
[2018-10-27] MEDS: LABETALOL HCL 100 MG TAB PO SCH (21:35)
[2018-10-27 22:05] LABS: Cdiff Antigen Positive; Cdiff Toxin A+B Negative Cdiff Toxin (Negative)
[2018-10-27] MEDS ORDERED: HydrALAZINE HCL 20 MG/ML VIAL IV STA (23:00)
[2018-10-28] MEDS ORDERED: PROMETHAZINE HCL 12.5 MG in SODIUM CHLORIDE 0.9% 50 ML IV PRN (00:57)
[2018-10-28] MEDS: ALBUTEROL 0.5% NEB SOLN 2.5 MG/0.5 ML VIAL INH SCH (07:08)
[2018-10-28] MEDS: TOBRAMYCIN SULFATE INH SCH (07:18)
[2018-10-28 07:33] LABS: Hematocrit (blood only) 25.5 % (42-52); Hemoglobin 8.6 g/dL (14.0-18.0); Mean Corpuscular Hgb Conc 33.7 g/dL (32-36); Mean Corpuscular Volume 104.1 fL (80-100); Mean Platelet Volume 10.4 fL (7.4-10.4); Platelet Count 113 K/uL (130-400); RDW Standard Deviation 56.5 fL (36.4-46.3); Red Blood Count 2.45 M/uL (4.7-6.1); White Blood Count 4.39 K/uL (4.8-10.8)
--- NOTE | 2018-10-28 07:44 | Hospitalist Progress Note ---
Date of Service October 28, 2018 Assessment & Plan (1) Clostridium difficile colitis: Diarrhea for few days and now C diff came back positive (new diagnosis) -Vancomycin 250 mg po qid- Start today -Probiotic start today (2) Volume overload: VOLUME OVERLOAD IN SETTING OF HX OF ISCHEMIC CARDIOMYOPATHY Pt presented to ER with c/o increased bilateral ankle edema. Pt denies increased SOB from baseline, denies orthopnea, CP. Does not think gained weight. No rales noted on lung exam -S/P IV Lasix 40 mg x 1 dose in ED. (Home regimen: Lasix 40 mg daily) -Echo - EF 30-35%, improved EF compared to prior Echo. Cardiology recommends repeat echocardiogram in 3 months to assess EF/AICD placement follow-up with cardiology outpatient -Cardiology on board- appreciate inputs. Recommended Nephro assistance for diuretic mx -Nephrology consulted- Discussed case with them - recommends torsemide 10 mg on discharge -Cleared by cardiology and nephrology for discharge (3) Ischemic cardiomyopathy: Mx as above -EF 30-35% per Echo this admission -On Labetalol, Not on ACEI due to CKD. Not on evidence beta cally secondary to comorbidities and skilled nursing tolerance to labetolol (4) Elevated troponin: ELEVATED TROPONIN Hx CAD s/p MITCHELL to LAD 05/2018, and MITCHELL to LAD 09/2018 Troponin: 0.126. Hx troponin 13.9, 63 prior admission with his VT. No chest pain EKG with new T wave inversions lateral leads -Cardiology consult, appreciate recommendations: Believe T wave inversions in the lateral precordial leads is likely in evolution of his previously noted VT. He does not have any symptoms suggestive of recurrent ischemic event at present. -Continue aspirin, plavix, statin, labetalol (5) SOB (shortness of breath): Chronic SOB Pt denies any increased SOB. Cough clear sputum. No fever, no leukocytosis, CXR with chronic right mid and lower lung opacities -continue home nebulizers and advair (6) Paroxysmal atrial fibrillation: Rate Controlled A fib Not on anticoagulation secondary to reported GI bleeding on triple therapy -Continue with Labetalol (7) CKD (chronic kidney disease): CKD 4-5 Has AV fistula. Not on dialysis yet. Patient follows with Dr. Sterling Cr: 2.69. 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 (11) Idiopathic pulmonary fibrosis: S/P left lung transplant at [facility] in 2012. Follow[address] with Dr Rodriguez at [facility] -Continue mycophenolate, tacrolimus, Advair, singular, albuterol, inhaled tobramycin, prednisone, Bactrim, acyclovir, posaconazole, azithromycin -- Persistent concerning airspace opacities in the base and mid right lung -- Biopsy/BAL deferred due to dual antiplatelet therapy -- Close follow up with transplant will be necessary, prior concern for possible PTLP disorder -- Pulmonary inputs appreciated- no additional inputs. Follow up with transplant center outpatient (12) GERD (gastroesophageal reflux disease): (13) Mood disorder: During last admission patient fluoxetine was changed to Zoloft. Patient developed prolonged QTC and Zoloft dosage was decreased. -Patient states since been restarted back on fluoxetine (14) Chronic anemia: Hgb: 9.2. Baseline~9-10 PLT: 128. Baseline~140s -Monitor CBC DVT Prophylaxis -SCDs Full Code as per discussion with pt DISPOSITION Observation status change to inpatient status Plan was to dc home as cleared by nephrology and cardiology, however, c diff came back positive- so will hold off discharge Updated by bedside Follows with Dr Lindo for routine care Subjective Patient denies any worsening of shortness of breath from baseline. Bilateral lower extremity swelling is stable. Denies any worsening of cough, sputum production. No chest pain, fever, chills. Complains of feeling tired as did not get sleep overnight Not on oxygen, saturating well. Physical Exam Physical Exam: Constitutional + ill appearing (Chronically ill in appearance); no acute distress Eyes Right sclera/pupil laterally displaced with disconjugate gaze Respiratory Coarse breath sounds in the right lung, left lung (transplanted lung) is clear to auscultation Cardiovascular Rate/Rhythm: regular rate Heart Sounds: no murmur Extremities: + edema (1-2+ lower leg/ankle/pedal edema) Gastrointestinal (Abdomen) normal bowel sounds, soft, nontender, no hepatosplenomegaly Neurologic moves all extremities; no focal motor deficits Conversant, follows commands Results & Data Vital Signs (Past 12 Hours) Vital Signs Temp Pulse Pulse Resp BP Pulse Ox 10/28/18 07:35 36.6 C 77 18 168/72 H 98 10/28/18 07:18 78 16 98 10/28/18 03:54 37.5 C 86 22 158/63 H 98 10/28/18 00:15 85 158/69 H 10/28/18 00:00 85 10/27/18 22:57 87 170/79 H 10/27/18 22:45 36.9 C 74 18 161/80 H 100 10/27/18 20:03 76 16 98 (1) Volume overload Hypervolemia type: unspecified Qualified Code(s): E87.70 - Fluid overload, unspecified
[2018-10-28 08:13] LABS: BUN Creatinine Ratio 11.5 (10-20); Calcium 8.4 mg/dl (8.5-10.1); Creatinine Clr Calc Pharmacy 24.1 ml/min; Est GFR (African American) 23.2; Magnesium 1.7 mg/dl (1.8-2.4); Potassium 3.4 mmol/L (3.5-5.1)
[2018-10-28] MEDS: FLUTICASONE/SALMETEROL (ADVAIR) 500/50 INH 14 PUFF INH SCH (08:36)
[2018-10-28] MEDS: MYCOPHENOLATE SODIUM 180 MG TAB PO SCH (08:37)
[2018-10-28] MEDS: OMEGA-3 (PURIFIED FISH OIL) 1 GM CAP PO SCH (08:37)
[2018-10-28] MEDS: LABETALOL HCL 100 MG TAB PO SCH (08:37)
[2018-10-28] MEDS: SODIUM BICARBONATE 650 MG TAB PO SCH ×2 (08:38→12:56)
[2018-10-28] MEDS: TACROLIMUS 0.5 MG CAP PO SCH (08:38)
[2018-10-28] MEDS: INSULIN ASPART 100 UNITS/ML 3 ML PEN SC SCH ×2 (08:38→12:37)
[2018-10-28] MEDS: PANTOprazole 40 MG TAB PO SCH (08:38)
--- NOTE | 2018-10-28 08:55 | Consultation Report ---
DATE OF CONSULTATION: 10/28/2018 PULMONARY CONSULTATION TIME: 8:15 a.m. REPORT OF CONSULTATION: The patient was seen in room 220. He is a 77-year-old male who came to the Emergency Room yesterday because of swelling in his hands and his feet. The patient is not the best historian. He is also hard of hearing, which makes communication somewhat difficult. He has hearing aids, but they are not in currently. He states that he is not more short of breath than normal. He has had a cough for a few weeks. The cough was generally dry. Then for a few days, he expectorated small quantities of white mucus. Now, it is dry again. He denies hemoptysis. He denies having any recent chest pains. He denies chills, fevers or sweats. He indicates that his swelling, he believes, is better today. Mr. Bill has a very complex history. From a pulmonary perspective, he has a history of idiopathic pulmonary fibrosis. A lung transplantation was done at [facility] in 2012. He apparently has done overall quite well since that time. He was a smoker many years ago, but quit smoking at about age 32. He did smoke 1-1/2 to 2 packs per day for about 10 years. The patient was hospitalized at [facility] from 10/04/2018 until 10/12/2018. He came in with chest pain, nausea and vomiting. He was found to have an FL and he had an Emergency stent done involving the LAD. His ejection fraction was found to be 30-35%. He was also found to have a prolonged QTc. Later on during his hospital stay, he was felt to have likely aspirated to the left lung which is his transplanted lung. He was subsequently transferred to [facility] where he was from 10/12/2018 until 10/17/2018. The patient was unable to give me any significant details of that hospital stay. He seems quite certain that they did not do bronchoscopy when he was there. Part of the reason for transfer is that he had some multiple small ground-glass nodules in the left lung. PAST SURGICAL HISTORY: 1. Lung transplant in 2012. 2. Cardiac stents. 3. Right prosthetic eye. PAST MEDICAL HISTORY: 1. Coronary artery disease. 2. FL. 3. GI bleeding. 4. PFO. 5. IPF. 6. Chronic kidney disease. 7. GERD. 8. CVA suggested by scanning. 9. Diabetes mellitus. 10. Hyperlipidemia. 11. Anemia. 12. Squamous cell carcinoma of the skin. 13. Glaucoma. 14. Pancreatic pseudocyst. 15. Paroxysmal atrial fibrillation. 16. Thrombocytopenia. 17. C. diff. SOCIAL HISTORY: Tobacco as noted above, 1-1/2-2 packs per day for 10 years. ETOH - 2-3 alcoholic beverages per day. FAMILY HISTORY: Father in his 70s, cancer. Mother at age 88, CHF. 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 ALLERGIES: 1. LEVOFLOXACIN. 2. OXYCODONE. 3. CAT DANDER. MEDICATIONS AT HOME: 1. Acyclovir. 2. Albuterol by nebulizer b.i.d. 3. Aspirin 81 mg daily. 4. Azithromycin. 5. Vitamin D3. 6. Clopidogrel. 7. Doxazosin. 8. Epogen. 9. Duloxetine. 10. Advair. 11. Furosemide. 12. Insulin. 13. Labetalol 100 mg b.i.d. 14. Magnesium supplement. 15. Montelukast. 16. Mycophenolate 360 mg b.i.d. 17. Lovaza. 18. Pantoprazole. 19. Posaconazole 300 mg t.i.d. 20. Prednisone 5 mg daily. 21. Crestor 40 mg at bedtime. 22. Sodium bicarbonate 650 mg t.i.d. 23. Bactrim 2 times per week. 24. Prograf 0.5 b.i.d. 25. Tobramycin via nebulizer 150 mg q. 12 hours. REVIEW OF SYSTEMS: Energy level is low. The patient has a right prosthetic eye. He states he has glaucoma in the left eye. Some degree of chronic nasal congestion. Denies trouble swallowing. Reportedly, he had nausea or vomiting at home, but denies it now. He has been having loose stools for several weeks. He was C. diff positive remotely, but not recently. Peripheral edema as noted above. Some slow urinary stream. Review of systems is otherwise negative. PHYSICAL EXAMINATION: GENERAL: The patient is a 77-year-old male who was cooperative, alert and oriented. He was hard of hearing, making communication difficult. VITAL SIGNS: Temperature is 36.6. He has had no fevers since admission. Cardiac rate was 77 per minute. Rhythm was regular. Blood pressure 168/72. HEENT: Eye exam shows a prosthetic right eye. Left pupil reacts. Nares mildly congested. Mouth exam unremarkable. NECK: Palpation of the neck reveals no lymph nodes or masses. CHEST: The patient has an external defibrillator device. Respiratory rate currently 18 breaths per minute. LUNGS: The breath sounds are well heard bilaterally. Rales at the right base. Saturation at the time of my exam 97% on room air at rest. There was no accessory muscle use. ABDOMEN: Soft. Bowel sounds were present and were normal. There was no tenderness to palpation or masses. EXTREMITIES: Reveals +1 ankle and foot edema bilaterally. No hand edema was noted. No cyanosis or clubbing. LABORATORY DATA: White count is 4.39. Hemoglobin 8.6. Platelets 113,000. The platelet count when he was hospitalized in September was 204,000 on 10/12/2018. Coags are unremarkable. Electrolytes show sodium 141, potassium 3.4, chloride 111, bicarbonate 20. BUN is 34 with a creatinine of 2.91. Magnesium is low at 1.7. Calcium 8.4. Troponins are mildly elevated up to 0.123. ProBNP was greater than 35,000. Urinalysis shows +1 protein, otherwise negative. C. diff was positive for the gene, but negative for C. diff toxin. Chest x-ray done yesterday shows the left lung appears clear. He has a large bullous in the right upper lung field. There is extensive chronic interstitial disease in the right mid and lower lung field. IMPRESSION: 1. History of idiopathic pulmonary fibrosis. 2. Status post left lung transplant, 2012. 3. Ischemic cardiomyopathy with volume overload. 4. History of multiple pulmonary nodules on the left lung seen at time of CAT scan done in September 2018. COMMENTS AND RECOMMENDATIONS: The patient's respiratory status seems stable at present. He has an excellent oxygen status on room air. He is not complaining. I believe he is on his baseline pulmonary medicines. I have no specific new suggestions at present. I am quite certain the transplant people will follow him very closely regarding the nodule seen on the left lung previously. He is not acting like he has acute infection at present. The extremely high ProBNP would be compatible with the volume overload suspected.
[2018-10-28] MEDS ORDERED: MAGNESIUM CHLORIDE 64MG DELAYED REL TAB PO SCH (09:00)
[2018-10-28] MEDS ORDERED: FLUOXETINE HCL 20 MG CAP PO SCH (09:00)
[2018-10-28] MEDS ORDERED: predniSONE 5 MG TAB PO SCH (09:00)
[2018-10-28] MEDS ORDERED: CHOLECALCIFEROL 1,000 UNITS TAB PO SCH (09:00)
[2018-10-28] MEDS ORDERED: DOXAZosin MESYLATE 4 MG TAB PO SCH (09:00)
[2018-10-28] MEDS ORDERED: ASPIRIN 81 MG ECTAB PO SCH (09:00)
[2018-10-28] MEDS ORDERED: CLOPIDOGREL BISULFATE 75 MG TAB PO SCH (09:00)
[2018-10-28] MEDS ORDERED: AZITHROMYCIN 250 MG TAB PO SCH (09:00)
[2018-10-28] MEDS ORDERED: ACYCLOVIR 400 MG TAB PO SCH (09:00)
[2018-10-28] MEDS ORDERED: POTASSIUM CHLORIDE 10 MEQ TABCR PO STA (10:02)
--- NOTE | 2018-10-28 10:05 | Cardiology Progress Note ---
Date of Service October 28, 2018 Assessment & Plan (1) Volume overload: Lower extremity edema significantly improved having received 40 mg of IV furosemide yesterday. Discussed with nephrology, will transition from furosemide 40 mg p.o. daily as outpatient to torsemide 10 mg p.o. daily Low-dose potassium supplementation ordered this morning. Volume overload likely combination of his underlying kidney disease plus ischemic cardiomyopathy. (2) Ischemic cardiomyopathy: Relatively well compensated now. Described a stable degree of baseline dyspnea when I discussed things with him yesterday. Given recent drug-eluting stent to the LAD for ST segment elevation microinfarction, continue dual antiplatelet therapy with aspirin and clopidogrel. Continue labetalol. It appears that this is been his chronic beta-cally treatment he has done well and is clinically. Not on evidence-based beta-cally such as carvedilol, metoprolol succinate due to his other comorbidities and long-standing tolerance of labetalol. Fluid transitioning to metoprolol succinate. I think this would likely be a better agent than carvedilol in order to focus on a cardiac specific beta-cally instead of the nonselective carvedilol. I think it is better to make one medication change at a time and the torsemide is the most important medication change at present. Permit mild degree of hypertension given his renal insufficiency. Continue rosuvastatin. (3) Paroxysmal atrial fibrillation: Rate controlled atrial fibrillation noted. Due to his renal insufficiency his NOT a candidate for sotalol or dofetilide. Due to his lung disease, he is NOT a candidate for amiodarone. -Previous gastrointestinal bleeding on anticoagulation and requires dual antiplatelet therapy due to his recent ST segment elevation [place] therefore he is not on Coumadin. He is not a candidate for direct oral anticoagulant given underlying renal disease, also bleeding problems. -Stable for discharge from cardiac perspective , follow up with Dr Chopra. Continue Life Vest. Plan for reassessment of LVEF 3 months post [place] for determination of indication/candidacy for implanted AICD. I do have concerns about proceeding with an AICD due to infection risk given his multiple comorbidities. I am not certain if implanted AICD went improve the prognosis for this patient with multiple problems. (4) Idiopathic pulmonary fibrosis: (5) Lung transplant status: (6) CKD (chronic kidney disease) stage 5, GFR less than 15 ml/min: Subjective Chief complaint: Follow-up lower extremity edema Subjective: Patient states that he felt well overnight last night. He noted significant subjective urinary output after his dose of IV furosemide. His ankle and pedal edema is much improved today. He denies any chest discomfort or palpitations. Physical Exam Constitutional: + ill appearing (Chronically ill in appearance, without acute distress) Eyes: Disconjugate gaze of his right eye, erythema noted surrounding the right eye and forehead and orbit area where patient is apparently receiving radiation therapy Respiratory: Coarse breath sounds right lung, clear left lung Cardiovascular: Rate/Rhythm: + irregularly irregular Heart Sounds: no murmur Vessels: no JVD Extremities: + edema (Trace ankle and pedal edema, improved compared to 10/27/2018) Gastrointestinal (Abdomen): normal bowel sounds, soft, nontender, no hepatosplenomegaly Neurologic: moves all extremities and + focal motor deficit Conversant, follows commands Results & Data Vital Signs (Past 12 Hours) Vital Signs Temp Pulse Pulse Resp BP Pulse Ox 10/28/18 07:35 36.6 C 77 18 168/72 H 98 10/28/18 07:18 78 16 98 10/28/18 03:54 37.5 C 86 22 158/63 H 98 10/28/18 00:15 85 158/69 H 10/28/18 00:00 85 10/27/18 22:57 87 170/79 H 10/27/18 22:45 36.9 C 74 18 161/80 H 100 Laboratory Results Cardiac Enzymes 10/27/18 10/27/18 10/28/18 Range/Units 12:42 18:46 00:12 AST 16 (15-37) U/L Troponin I 0.126 H* 0.119 H* 0.123 H* (0-0.045) ng/ml Coagulation 10/27/18 Range/Units 12:42 PT 10.6 (9.0-12.0) Seconds APTT 24.2 (21.0-31.0) Seconds CBC 10/27/18 10/28/18 Range/Units 12:42 07:23 WBC 5.19 4.39 L (4.8-10.8) K/uL RBC 2.66 L 2.45 L (4.7-6.1) M/uL Hgb 9.2 L 8.6 L (14.0-18.0) g/dL Hct 27.9 L 25.5 L (42-52) % Plt Count 128 L 113 L (130-400) K/uL Neut # (Auto) 3.98 (1.4-6.5) K/uL Lymph # (Auto) 0.32 L (1.2-3.4) K/uL Refugio # (Auto) 0.64 H (0.11-0.59) K/uL Eos # (Auto) 0.22 (0-0.5) K/uL Baso # (Auto) 0.02 (0-0.2) K/uL Comprehensive Metabolic Panel 10/27/18 10/28/18 Range/Units 12:42 07:23 Sodium 144 141 (136-145) mmol/L Potassium 4.0 3.4 L (3.5-5.1) mmol/L Chloride 115 H 111 H (98-107) mmol/L Carbon Dioxide 19 L 20 L (21-32) mmol/L BUN 35 H 34 H (7-18) mg/dl Creatinine 2.69 H 2.91 H (0.6-1.4) mg/dl Glucose 84 107 H (70-99) mg/dl Calcium 8.6 8.4 L (8.5-10.1) mg/dl AST 16 (15-37) U/L ALT 17 (12-78) U/L Alkaline Phosphatase 81 (45-117) U/L Total Protein 6.0 L (6.4-8.2) gm/dl Albumin 3.0 L (3.4-5.0) gm/dl Intake and Output 10/27/18 10/28/18 10/28/18 22:59 06:59 14:59 Intake Total 100 / 550.5 450.5 / 550.5 Output Total 275 / 900 625 / 900 Balance -175 / -349.5 -174.5 / -349.5 Intake: IV 100 / 150.5 50.5 / 150.5 MAGNESIUM SULFATE / D5W 1 gm In 100 / 100 100 ml @ 100 mls/hr IV ONE ONE Rx#:[id number] Phenergan 12.5 mg In Nss 50 ml 50.5 / 50.5 @ 202 mls/hr IV Q6H PRN Rx#: [id number] Oral 400 / 400 Output: Urine 275 / 900 625 / 900 Other: Weight 80.4 kg 78.9 kg Diagnostic Findings EKG this morning 10/28/2018 reveals sinus rhythm with first-degree AV block OH interval 314 ms, T wave inversions consistent with evolution of previously documented anterior ST segment elevation microinfarction in September,. The corrected QT interval is noted to be prolonged at 520 ms, but I think this is just due to the morphology of the T waves and is not chemical sales representative of an inherited or acquired prolonged QT syndrome. (1) Volume overload Hypervolemia type: unspecified Qualified Code(s): E87.70 - Fluid overload, unspecified
--- NOTE | 2018-10-28 10:10 | Nephrology Consultation ---
Date of Consultation October 28, 2018 Assessment & Plan (1) CKD (chronic kidney disease) stage 5, GFR less than 15 ml/min: -- Creatinine has increased since admission but remains within baseline range -- Volume status is improving with diuretics -- Blood pressure is acceptable -- Metabolic profile is otherwise acceptable -- Medications are appropriate for kidney function (no change in Prograf dosing) -- AVF is mature for use -- There is no emergent indication for dialysis -- I/O's will be documented -- UA will be repeated -- No additional evaluation at this time -- Will monitor metabolic profile daily and continue to follow -- Patient should be stable for discharge once he is breathing comfortably and on an oral diuretic (2) Ischemic cardiomyopathy: -- Volume status improving with diuretics -- LAD WMA persists -- LVEF slightly improved at 30-35% -- Improving following 40 mg IV furosemide yesterday -- Will switch to PO torsemide today (3) S/P drug eluting coronary stent placement: -- Status post PCI in September -- Remains on dual antiplatelet therapy -- Symptoms resolved -- Cardiology following -- TTE reviewed (4) Paroxysmal atrial fibrillation: -- Off anticoagulation secondary to reported bleeding and anemia in the past -- Unclear why metoprolol was switched back to labetalol, discussed with cardiology this morning -- Appears to be tolerating rhythm fairly well at this time (5) Lung transplant status: -- S/P L lung transplant at [facility] in 2012. Follow[address] Rodriguez at [facility] -- Persistent concerning airspace opacities in the base and mid right lung -- Pulmonary consult appreciated -- Biopsy/BAL deferred due to dual antiplatelet therapy -- Close follow up with transplant will be necessary, prior concern for possible PTLP disorder -- Remains on Myfortic and prograf -- Given recent SCC, question whether sirolimus may be alternative consideration (6) Idiopathic pulmonary fibrosis: (7) Chronic anemia: -- Hgb slightly lower -- Will provide additional Epogen dose today -- Iron profile updated during admission in September History of Present Illness Reason for Consultation: ADEEL/CKD Requesting Physician: Teodora Campos Attending Physician: Teodora Campos History of Present Illness Mr. Shaun Bill is a 77-year-old male with CKD IV-V. He follows in the nephrology clinic with Dr. Sterling. Shaun was seen in the clinic as recently as earlier this month. Baseline creatinine has been 2.5-3.0 mg/dL. Metabolic profile has been acceptable. The patient has a well developed AVF which was placed by Dr. Oconnell in May 2017. He has not required dialysis. 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 CKD has been attributed to a history of ATN as well as microvascular disease and calcineurin inhibitor nephropathy. Complications of his chronic kidney disease including anemia requiring FELICIANO therapy, as well as secondary hyperparathyroidism. Medical history is notable for IPF. 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 He has a right tulalip lung. Immunotherapy includes MMF, prograf, and prednisone. Post transplant complications include recurrent pneumonia. 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 Shaun also has diabetes mellitus (no retinopathy or neuropathy), hypertension, a history of C diff colitis, facial SCC, as well as coronary artery disease. In April, he underwent PCI with MITCHELL placement to LAD and circumflex. He presented to [facility] in September 2018 with a STEMI and was taken to the cardiac catheterization with findings of a 99% subtotal occlusion of the mid LAD just distal to the previously placed stent. He underwent successful PCI of the mid LAD receiving a single drug-eluting stent that overlapped with the distal aspect of the prior mid LAD stent. A 50% ostial RCA stenosis was noted. On 10/08 he had recurrent chest discomfort, this prompted repeat cardiac catheterization on 10/08/2018 with findings of widely patent prior LAD stents and 50% ostial RCA stenosis unchanged compared to the prior procedure on 10/04/2018. The patient's creatinine peaked at 3.57 in September. The patient developed progressive shortness of breath during his hospital stay ultimately prompting transfer to [facility] where his prior lung transplant took place on 10/12/2018. The patient was hospitalized there is from 10/12/2018 until 10/17/2018. Serum creatinine monet on admission from 2.5 to 2.9 mg/dL. Metabolic profile was notable for some hypercalcemia on calcitriol. Metabolic profile has been otherwise appropriate. Urine output is normal. UA demonstrated proteinuria and some RBC's. There were no WBC's or casts. Fluid balance is -450 ml for the admi ssion. Shaun is feeling significantly improved in terms of his presenting symptoms today. He hopes to be discharged home soon. He has not had fevers or chills. Allergies Allergy/AdvReac Type Severity Reaction Status Date / Time levofloxacin Allergy Intermediate ANAPHYLAXIS Verified 10/27/18 12:18 oxycodone Allergy Intermediate ANAPHYLAXIS Verified 10/27/18 12:18 cat dander Allergy Unknown CHEST Verified 10/27/18 12:18 TIGHTNESS Home Medications Home Medications Medication Instructions Recorded Confirmed Type acetaminophen [Tylenol Extra 500 mg PO Q6H PRN 05/09/18 10/27/18 History Strength] acyclovir 400 mg PO QAM 05/09/18 10/27/18 History albuterol sulfate 2.5 mg INHALATION BID 05/09/18 10/27/18 History aspirin 81 mg PO QAM 05/09/18 10/27/18 History cholecalciferol (vitamin D3) 1,000 unit PO QAM 05/09/18 10/27/18 History doxazosin 8 mg PO QAM 05/09/18 10/27/18 History fluticasone propion-salmeterol 1 inh INHALATION Q12H 05/09/18 10/27/18 History [Advair Diskus] furosemide [Lasix] 40 mg PO QAM 05/09/18 10/27/18 History labetalol 100 mg PO BID 05/09/18 10/27/18 History montelukast [Singulair] 10 mg PO HS 05/09/18 10/27/18 History mycophenolate sodium [Myfortic] 360 mg PO BID 05/09/18 10/27/18 History omega-3 acid ethyl esters [Lovaza] 2 cap PO BID 05/09/18 10/27/18 History rosuvastatin [Crestor] 40 mg PO HS 05/09/18 10/27/18 History tacrolimus [Prograf] 0.5 mg PO BID 05/09/18 10/27/18 History clopidogrel 75 mg PO QAM 07/21/18 10/27/18 History fluoxetine 40 mg PO QAM 10/04/18 10/27/18 History pantoprazole 40 mg PO BID 30 Days #60 tab 10/12/18 10/27/18 Rx azithromycin 250 mg tablet 250 mg PO QAM 10/19/18 10/27/18 History insulin lispro (U- 100) 100 See Rx Instructions SQ TID PRN 10/19/18 10/27/18 History unit/mL subcutaneous pen magnesium 71.5 mg (magnesium 143 mg PO QAM 10/19/18 10/27/18 History chloride) tablet,delayed release posaconazole 100 mg tablet,delayed 300 mg PO TID 10/19/18 10/27/18 History release prednisone 5 mg tablet 5 mg PO QAM 10/19/18 10/27/18 History sodium bicarbonate 650 mg tablet 650 mg PO TID tab 10/19/18 10/27/18 History epoetin nicholas [Epogen] 0 unit SUBCUT MONTHLY 10/27/18 10/27/18 History sulfamethoxazole-trimethoprim 1 tab PO 2XWK 10/27/18 10/27/18 History tobramycin with nebulizer 150 mg INHALATION Q12H 10/27/18 10/27/18 History Patient History Medical History Hyperglycemia (Chronic) Paroxysmal atrial fibrillation (Chronic) Idiopathic pulmonary fibrosis (Chronic) 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 GI CONCERNED AND FEELS SCOPE IS NECESSARY Surgical History S/P patent foramen ovale closure (Resolved) Lung transplant status (Chronic) Hx of heart artery stent (Chronic) S/P MITCHELL to LAD and circumflex after NSTEMI in 05/2018 History of cardiac cath STENTS X2 MAY 2018 ([facility] [place] RECORD ) Family History Father , in his seventies of cancer No problems noted. Mother , age 88 of CHF No problems noted. Daughter Age: 45 No problems noted. Son Age: 44 No problems noted. Other No significant family history Social History Preferred Language: Congolese Communication Ability: Effective Staffing Consultant Required: No Beliefs That Will Affect Care: None marital status: Current Living Situation: Spouse current occupational status: retired Feels Safe at Home: Yes Smoking Status: Former smoker Tobacco Type: cigarettes Cigarettes Per Day: HX OF BRIEF SOCIAL USE WHILE IN , QUIT 45 YEARS AGO Do You Dip or Chew Tobacco: No Smoking End Date: 1972 Second Hand Exposure: No Hx Alcohol Use: Yes (3 drinks a day. Last drink Last night) Alcohol type: hard liquor Hx Substance Use: No caffeine: Yes (1 cup in am) Review of Systems Review of Systems: All systems reviewed & are unremarkable except as noted in HPI & below Physical Exam Constitutional: well developed; no acute distress Eyes: no conjunctival abnormality and no scleral abnormality ENMT: Mouth: no oral mucosal abnormality and oral mucous membranes not dry Neck: normal visual inspection and trachea midline Respiratory: normal respiratory effort Auscultation: + diminished lung sounds and + crackles Cardiovascular: Rate/Rhythm: + irregularly irregular Heart Sounds: normal S1 and normal S2; no murmur Extremities: + edema Gastrointestinal (Abdomen): Percussion/Palpation: abdomen soft; abdomen nontender Musculoskeletal: Extremities: no cyanosis and no clubbing Skin: normal turgor; no rashes Neurologic: Motor/Sensory: no tremor and no asterixis Psychiatric: Orientation: alert and oriented x 3 Affect: euthymic affect Results & Data Vital Signs (Past 12 Hours) Vital Signs Temp Pulse Pulse Resp BP Pulse Ox 10/28/18 07:35 36.6 C 77 18 168/72 H 98 10/28/18 07:18 78 16 98 10/28/18 03:54 37.5 C 86 22 158/63 H 98 10/28/18 00:15 85 158/69 H 10/28/18 00:00 85 10/27/18 22:57 87 170/79 H 10/27/18 22:45 36.9 C 74 18 161/80 H 100
[2018-10-28] MEDS ORDERED: EPOETIN ALFA 4,000 UNIT/ML VIAL SQ ONE (10:26)
[2018-10-28] MEDS ORDERED: TORSEMIDE 10 MG TAB PO SCH (10:30)
[2018-10-28 11:35] VITALS: BP 123/67; PULSE 67; TEMP 97.3; O2SAT 100
[2018-10-28] MEDS ORDERED: SACCHAROMYCES BOULARDII 250 MG CAP PO SCH (14:00)
--- NOTE | 2018-10-28 15:54 | Hospitalist Progress Note ---
Date of Service October 28, 2018 Assessment & Plan (1) Volume overload: VOLUME OVERLOAD IN SETTING OF HX OF ISCHEMIC CARDIOMYOPATHY Pt presented to ER with c/o increased bilateral ankle edema. Pt denies increased SOB from baseline, denies orthopnea, CP. Does not think gained weight. No rales noted on lung exam -S/P IV Lasix 40 mg x 1 dose in ED. (Home regimen: Lasix 40 mg daily) -Echo - EF 30-35%, improved EF compared to prior Echo. Cardiology recommends repeat echocardiogram in 3 months to assess EF/AICD placement follow-up with cardiology outpatient -Cardiology on board- appreciate inputs. Recommended Nephro assistance for diuretic mx -Nephrology consulted- Discussed case with them - recommends torsemide 10 mg on discharge -Cleared by cardiology and nephrology for discharge (2) Ischemic cardiomyopathy: Mx as above -EF 30-35% per Echo this admission -On Labetalol, Not on ACEI due to CKD. Not on evidence beta cally secondary to comorbidities and terminal worker tolerance to labetolol (3) Elevated troponin: ELEVATED TROPONIN Hx CAD s/p MITCHELL to LAD 05/2018, and MITCHELL to LAD 09/2018 Troponin: 0.126. Hx troponin 13.9, 63 prior admission with his HI. No chest pain EKG with new T wave inversions lateral leads -Cardiology consult, appreciate recommendations: Believe T wave inversions in the lateral precordial leads is likely in evolution of his previously noted HI. He does not have any symptoms suggestive of recurrent ischemic event at present. -Continue aspirin, plavix, statin, labetalol (4) SOB (shortness of breath): Chronic SOB Pt denies any increased SOB. Cough clear sputum. No fever, no leukocytosis, CXR with chronic right mid and lower lung opacities -continue home nebulizers and advair (5) Clostridium difficile carrier: For diarrhea, c diff done- GENE +VE, TOXIN neg Per patient, , no diarrhea Has prior hx of c diff (6) Paroxysmal atrial fibrillation: Rate Controlled A fib Not on anticoagulation secondary to reported GI bleeding on triple therapy -Continue with Labetalol (7) CKD (chronic kidney disease): CKD 4-5 Has AV fistula. Not on dialysis yet. Patient follows with Dr. Sterling Cr: 2.69. Baseline ~3-3.5 -Avoid nephrotoxic agents and possible (8) Hyperglycemia: History hyperglycemia secondary to chronic steroid use A1c 5.5 on 09/2017 -Hold home Humalog sliding scale -NovoLog sliding scale per protocol (9) HTN (hypertension): BP elevated -Continue, Cardluca Labetolol -Monitor BP (10) Squamous cell carcinoma of skin of scalp: Received radiation rx regularly Radiation oncology called as they wanted to take him for his routine rx today-- okay to go ahead with it. Rx completed (11) Idiopathic pulmonary fibrosis: S/P left lung transplant at [facility] in 2012. Follow[address] with [address] Rodriguez at [facility] -Continue mycophenolate, tacrolimus, Advair, singular, albuterol, inhaled tobramycin, prednisone, Bactrim, acyclovir, posaconazole, azithromycin -- Persistent concerning airspace opacities in the base and mid right lung -- Biopsy/BAL deferred due to dual antiplatelet therapy -- Close follow up with transplant will be necessary, prior concern for possible PTLP disorder -- Pulmonary inputs appreciated- no additional inputs. Follow up with transplant center outpatient (12) GERD (gastroesophageal reflux disease): (13) Mood disorder: During last admission patient fluoxetine was changed to Zoloft. Patient developed prolonged QTC and Zoloft dosage was decreased. -Patient states since been restarted back on fluoxetine (14) Chronic anemia: Hgb: 9.2. Baseline~9-10 PLT: 128. Baseline~140s -Monitor CBC DVT Prophylaxis -SCDs Full Code as per discussion with pt DISPOSITION Observation status changed to inpatient status Cleared for discharge by nephrology, cardiology C diff toxin is negative and gene +ve with no diarrhea Eager to be discharged Ok to discharge home Updated by bedside Follows with Dr Lindo for routine care Subjective Patient denies any worsening of shortness of breath from baseline. Bilateral lower extremity swelling is stable. Denies any worsening of cough, sputum production. No chest pain, fever, chills. No diarrhea Complains of feeling tired as did not get sleep overnight Not on oxygen, saturating well. Results & Data Vital Signs (Past 12 Hours) Vital Signs Temp Pulse Resp BP Pulse Ox 10/28/18 11:35 36.3 C L 67 18 123/67 100 10/28/18 07:35 36.6 C 77 18 168/72 H 98 10/28/18 07:18 78 16 98 10/28/18 03:54 37.5 C 86 22 158/63 H 98 (1) Volume overload Hypervolemia type: unspecified Qualified Code(s): E87.70 - Fluid overload, unspecified
--- NOTE | 2018-10-28 15:58 | Discharge Summary ---
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 Hx hospitalization at [facility] on 10/04/18. Had complicated hospital course. Pt with NSTEMI with stent to LAD on 10/04/18. During hospital course his fluoxetine was switched to zoloft 50mg daily secondary to medication interaction. He developed prolonged QTc and concern for nonsustained Vtach and his prophylactic zithromax was held and doxycycline was started and zoloft was decreased to 25mg daily. His labetalol was changed to metoprolol succinate. 10/08/18 developed hypoxia, 10/10/18 developed acute respiratory failure, afib and possible aspiration, 10/12/18 hypoxic again and possible fluid overload, post transplant lymphoproliferative disease. Pt was transferred to [facility] on 10/12/18 and reports discharged on 10/17/18. (Unable to review discharge summary at this time) Since hospital discharge, pt is back on labetalol and fluoxetine. Pt resumed zithromax on 10/24/18 per lung transplant team recommendations. Pt has home health couple of times a week. Nurse visit today and was concerned with increased LE edema and thought pt more SOB and had worsening lung sounds. He reports that he has been weighing himself a couple of times a week and hasn't noticed weight changes. Pt states today he has noticed BLE edema. Pt reports chronic SOB with exertion which is worse some days. Feels he is at his baseline breathing. Denies orthopnea. Has had cough x 2 weeks initially nonproductive and now productive clear sputum. Reports 3-5 episodes of watery diarrhea for past couple of days. Reports chronic very soft stools but not usually watery. Denies any firing from lifevest. Pt reports has had generalized weakness since initial SC in 05/2018. He has had home PT twice week for past couple of weeks and feels is tolerating and able to participate in PT exercises. Denies fever/chills, diaphoresis, N/V, HARRIS, dizziness, syncope, vision changes, neck pain, CP, palpitations, hemoptysis, sore throat, choking, otalgia, rhinorrhea, abdominal pain, rashes, urinary symptoms. Principal Diagnosis 1 Mild volume overload/CHF exacerbation (systolic) in setting of ischemic cardiomyopathy Secondary diagnoses on discharge 1. Ischemic cardiomyopathy with LifeVest 2. 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 Atrial fibrillation, paroxysmal 4. Hypertension 5. Squamous cell carcinoma of skin of scalp 6. GERD 7. Left lung transplant 8. Mood disorder 9. Chronic anemia Discharge Exam Constitutional + ill appearing (Chronically ill in appearance); no acute distress Eyes Right sclera/pupil laterally displaced with disconjugate gaze Respiratory Coarse breath sounds in the right lung, left lung (transplanted lung) is clear to auscultation Cardiovascular Rate/Rhythm: regular rate Heart Sounds: no murmur Extremities: + edema (1-2+ lower leg/ankle/pedal edema) Gastrointestinal (Abdomen) normal bowel sounds, soft, nontender, no hepatosplenomegaly Neurologic moves all extremities; no focal motor deficits Conversant, follows commands Discharge Data Allergies Allergy/AdvReac Type Severity Reaction Status Date / Time levofloxacin Allergy Intermediate ANAPHYLAXIS Verified 10/27/18 12:18 oxycodone Allergy Intermediate ANAPHYLAXIS Verified 10/27/18 12:18 cat dander Allergy Unknown CHEST Verified 10/27/18 12:18 TIGHTNESS Consultations 10/27/18 14:02 ED Decision to Admit Stat 10/27/18 17:07 Consult Cardiology Routine Consult Case Management - Discharge Planning Routine Consult Nephrology Routine Consult Pulmonology Routine Hospital Course (1) Volume overload: VOLUME OVERLOAD IN SETTING OF HX OF ISCHEMIC CARDIOMYOPATHY Pt presented to ER with c/o increased bilateral ankle edema. Pt denies increased SOB from baseline, denies orthopnea, CP. Does not think gained weight. No rales noted on lung exam -S/P IV Lasix 40 mg x 1 dose in ED. (Home regimen: Lasix 40 mg daily) -Echo - EF 30-35%, improved EF compared to prior Echo. Cardiology recommends repeat echocardiogram in 3 months to assess EF/AICD placement follow-up with cardiology outpatient -Cardiology on board- appreciate inputs. Recommended Nephro assistance for diuretic mx -Nephrology consulted- Discussed case with them - recommends torsemide 10 mg on discharge -Cleared by cardiology and nephrology for discharge (2) Ischemic cardiomyopathy: Mx as above -EF 30-35% per Echo this admission -On Labetalol, Not on ACEI due to CKD. Not on evidence beta cally secondary to comorbidities and correction tolerance to labetolol (3) Elevated troponin: ELEVATED TROPONIN Hx CAD s/p MITCHELL to LAD 05/2018, and MITCHELL to LAD 09/2018 Troponin: 0.126. Hx troponin 13.9, 63 prior admission with his SC. No chest pain EKG with new T wave inversions lateral leads -Cardiology consult, appreciate recommendations: Believe T wave inversions in the lateral precordial leads is likely in evolution of his previously noted SC. He does not have any symptoms suggestive of recurrent ischemic event at present. -Continue aspirin, plavix, statin, labetalol (4) SOB (shortness of breath): Chronic SOB Pt denies any increased SOB. Cough clear sputum. No fever, no leukocytosis, CXR with chronic right mid and lower lung opacities -continue home nebulizers and advair (5) Clostridium difficile carrier: For diarrhea, c diff done- GENE +VE, TOXIN neg Per patient, , no diarrhea Has prior hx of c diff (6) Paroxysmal atrial fibrillation: Rate Controlled A fib Not on anticoagulation secondary to reported GI bleeding on triple therapy -Continue with Labetalol (7) CKD (chronic kidney disease): CKD 4-5 Has AV fistula. Not on dialysis yet. Patient follows with Dr. Sterling Cr: 2.69. Baseline ~3-3.5 -Avoid nephrotoxic agents and possible (8) Hyperglycemia: History hyperglycemia secondary to chronic steroid use A1c 5.5 on 09/2017 -Hold home Humalog sliding scale -NovoLog sliding scale per protocol (9) HTN (hypertension): BP elevated -Continue, Kenyetta Whelan -Monitor BP (10) Squamous cell carcinoma of skin of scalp: Received radiation rx regularly Radiation oncology called as they wanted to take him for his routine rx today-- okay to go ahead with it. Rx completed (11) Idiopathic pulmonary fibrosis: S/P left lung transplant at [facility] in 2012. [address] Rodriguez at [facility] -Continue mycophenolate, tacrolimus, Advair, singular, albuterol, inhaled tobramycin, prednisone, Bactrim, acyclovir, posaconazole, azithromycin -- Persistent concerning airspace opacities in the base and mid right lung -- Biopsy/BAL deferred due to dual antiplatelet therapy -- Close follow up with transplant will be necessary, prior concern for possible PTLP disorder -- Pulmonary inputs appreciated- no additional inputs. Follow up with transplant center outpatient (12) GERD (gastroesophageal reflux disease): (13) Mood disorder: During last admission patient fluoxetine was changed to Zoloft. Patient developed prolonged QTC and Zoloft dosage was decreased. -Patient states since been restarted back on fluoxetine (14) Chronic anemia: Hgb: 9.2. Baseline~9-10 PLT: 128. Baseline~140s -Monitor CBC DVT Prophylaxis -SCDs Full Code as per discussion with pt DISPOSITION Observation status changed to inpatient status Cleared for discharge by nephrology, cardiology C diff toxin is negative and gene +ve with no diarrhea Eager to be discharged Ok to discharge home Updated by bedside Follows with Dr Lindo for routine care Total Time Total Time Spent Total Time Spent (In Minutes): 25 minutes Discharge Plan Discharge Items Patient Disposition: Home - Self-Care Reason For Visit: CHF EXAC Discharge Diagnosis: Mild volume overload Discharge Goals: Decrease discomfort Activity: Resume your previous activity Non-emergency contact: Primary Care Provider Call non-emergency contact if: your symptoms worsen Follow-up/Referrals: Carlton Lindo, [Primary Care Provider] - Diet: Heart Healthy Fluids: 1800ml (7 cups) Addtl Provider Instructions: MEDICATION CHANGES New medication- Torsemide 10 mg daily Prescriptions: New torsemide 10 mg Tablet 10 mg PO QAM 30 Days Qty: 30 RF: 0 Continued insulin lispro [Humalog KwikPen Insulin] 100 unit/mL insulin pen See Patient Comments SQ TID PRN (Reason: .) RF: 0 Slow-Mag 71.5 mg tablet,delayed release (DR/EC) 143 mg PO QAM RF: 0 posaconazole 100 mg tablet,delayed release (DR/EC) 300 mg PO TID RF: 0 prednisone 5 mg tablet 5 mg PO QAM RF: 0 sodium bicarbonate 650 mg tablet 650 mg PO TID RF: 0 azithromycin 250 mg tablet 250 mg PO QAM RF: 0 acyclovir 400 mg Tablet 400 mg PO QAM RF: 0 aspirin 81 mg Tablet,Delayed Release (Dr/Ec) 81 mg PO QAM RF: 0 cholecalciferol (vitamin D3) 1,000 unit Capsule 1,000 unit PO QAM RF: 0 albuterol sulfate 2.5 mg/0.5 mL Solution For Nebulization 2.5 mg INHALATION BID RF: 0 furosemide [Lasix] 40 mg Tablet 40 mg PO QAM RF: 0 acetaminophen [Tylenol Extra Strength] 500 mg Tablet 500 mg PO Q6H PRN (Reason: Pain) RF: 0 fluticasone propion-salmeterol [Advair Diskus] 500-50 mcg/dose Blister With Device 1 inh INHALATION Q12H RF: 0 doxazosin 4 mg Tablet 8 mg PO QAM RF: 0 montelukast [Singulair] 10 mg Tablet 10 mg PO HS RF: 0 tacrolimus [Prograf] 0.5 mg Capsule 0.5 mg PO BID RF: 0 rosuvastatin [Crestor] 40 mg Tablet 40 mg PO HS RF: 0 mycophenolate sodium [Myfortic] 180 mg Tablet,Delayed Release (Dr/Ec) 360 mg PO BID RF: 0 omega-3 acid ethyl esters [Lovaza] 1 gram Capsule 2 cap PO BID RF: 0 labetalol 100 mg Tablet 100 mg PO BID RF: 0 fluoxetine 40 mg Capsule 40 mg PO QAM RF: 0 pantoprazole 40 mg Tablet,Delayed Release (Dr/Ec) 40 mg PO BID 30 Days Qty: 60 RF: 0 clopidogrel 75 mg Tablet 75 mg PO QAM RF: 0 sulfamethoxazole-trimethoprim 400-80 mg Tablet 1 tab PO 2XWK RF: 0 Epogen 10,000 unit/mL Solution subcut MONTHLY RF: 0 tobramycin with nebulizer 300 mg/5 mL Solution For Nebulization 150 mg INHALATION Q12H RF: 0 Stand-Alone Forms: [facility] Discharge Orders: Discharge Order (Routine); Ordered 10/28/18 Ordered By: Teodora Campos Admission Data Admit Date/Time: 10/28/18 13:57 Attending Provider: Teodora Campos Admit Provider: Teresa Basurto Primary Care Provider: Carlton Lindo Other Providers: Corey Jfafe ; Scott Howard ; Teresa Basurto ; Doug Burnett Service: Telemetry Medical Other Interventions: Discharge Summary Assessment (RN) Last Done: 10/28/18 16:00
[2018-10-28] MEDS ORDERED: VANCOMYCIN HCL 125 MG/2.5ML SOLN PO SCH (18:00)
[2018-10-28] MEDS ORDERED: RASPBERRY SYRUP 5 ML UDP PO SCH (18:00)
== END 2018-10-28 16:40 | disposition home health service (06) | DRG 303 ==
LOC: ED 11:42 → 2S 11:42

== ENCOUNTER 2019-02-08 10:26 | Inpatient (IN) ==
[2019-02-08] MEDS ORDERED: SODIUM CHLORIDE 0.9% 250 ML IV ONE (10:40)
[2019-02-08 11:23] LABS: Basophils # (auto) 0.03 K/uL (0-0.2); Basophils % (auto) 0.3 %; Eosinophils # (auto) 0.16 K/uL (0-0.5); Eosinophils % (auto) 1.6 %; Hematocrit (blood only) 33.5 % (42-52); Hemoglobin 11.4 g/dL (14.0-18.0); Immature Granulocytes # (auto) 0.02 K/uL (0.00-0.02); Immature Granulocytes % (auto) 0.2 %; Lymphocytes # (auto) 0.75 K/uL (1.2-3.4); Lymphocytes % (auto) 7.7 %; Mean Platelet Volume 11.5 fL (7.4-10.4); Monocytes # (auto) 1.19 K/uL (0.11-0.59); Monocytes % (auto) 12.2 %; Neutrophils # (auto) 7.63 K/uL (1.4-6.5); Platelet Count 141 K/uL (130-400); RDW Coefficient of Variation 13.9 % (11.5-14.5); Red Blood Count 3.19 M/uL (4.7-6.1); White Blood Count 9.78 K/uL (4.8-10.8)
[2019-02-08 11:36] LABS: INR 1.1 (0.9-1.1); Partial Thromboplastin Time 27.3 Seconds (21.0-31.0); Prothrombin Time 10.8 Seconds (9.0-12.0)
[2019-02-08 11:40] LABS: Albumin Level 3.1 gm/dl (3.4-5.0); BUN Creatinine Ratio 13.4 (10-20); Calcium 8.5 mg/dl (8.5-10.1); Creatinine Clr Calc Pharmacy 24.4 ml/min; Est GFR (African American) 24.3; Potassium 3.5 mmol/L (3.5-5.1)
[2019-02-08 11:42] LABS: Magnesium 1.5 mg/dl (1.8-2.4); Phosphorus 2.4 mg/dl (2.5-4.9)
[2019-02-08 11:48] LABS: Albumin Globulin Ratio 0.9 (0.9-2); Bilirubin,Total 1.6 mg/dl (0.2-1); Globulin 3.4 gm/dl (2.5-4.0); Total Protein 6.5 gm/dl (6.4-8.2); Troponin I 0.078 ng/ml (0-0.045)
--- NOTE | 2019-02-08 12:54 | Ultrasound Report ---
US hemodialysis access HISTORY: 78 years-old Male eval for thrombosed fistula acute right arm pain and swelling extending f rom the medial elbow to the mid forearm. Right upper extremity fistula COMPARISON: None available TECHNIQUE: Multiple real time sonographic images of the right upper extremity were obtained assessing grayscale appearance, color and spectral flow FINDINGS: Arterial venous fistula of the right upper extremity is noted which appears to be involving the radia l artery and cephalic vein. No significantly elevated peak systolic velocities within the fistula to suggest high-grade stenosis. The fistula appears patent. There is occlusive thrombus noted in one of the 2. Brachial veins of the upper arm. The other brachial vein demonstrates nonocclusive thrombus of the upper arm. Moderate subcutaneous edema. Mild stranding about the proximal right subclavian vein without occlusive thrombus identified. IMPRESSION: 1. Patent arteriovenous fistula of the right upper extremity. 2. Occlusive and nonocclusive deep venous thrombi of the brachial veins. The above report was generated using voice recognition software. It may contain grammatical, syntax o r spelling errors. Electronically signed by: Nathaniel Dan M.D. 02/08/2019 12:53 PM
[2019-02-08] MEDS ORDERED: Heparin IV Standard *NO* Bolus IV ONE (14:44)
[2019-02-08] MEDS ORDERED: HEPARIN SODIUM/DEXTROSE 25,000 UNITS/500 ML BAG IV SCH (14:45)
--- NOTE | 2019-02-08 15:24 | XRay Report ---
XR chest 1V portable CLINICAL HISTORY: Atypical chest pain COMPARISON STUDY: 10/27/2018 FINDINGS: There is right-sided bullous emphysema. There is right-sided volume loss. There is very sli ght improvement in the right mid to lower lung zone airspace opacities. The left lung is clear. There is minor blunting of the right lateral costophrenic angle. IMPRESSION: 1. Slight improvement in the right mid to lower lung zone airspace opacities 2. Right-sided bullous emphysema Electronically signed by: Bon Ariza M.D. 02/08/2019 3:23 PM
--- NOTE | 2019-02-08 16:40 | History & Physical Report ---
Date of Service February 08, 2019 Assessment & Plan (1) Deep vein thrombosis (DVT) of brachial vein of right upper extremity: Pt presented with c/o RUE edema and erythema x 2 days. H/O AV fistula to right arm. Not on dialysis yet. Pt with complex PMH. Reported hx GI bleed on triple therapy in past. US RUE: 1. Patent arteriovenous fistula of the right upper extremity. 2. Occlusive and nonocclusive deep venous thrombi of the brachial veins. No current signs of bleeding -In ER Heparin IV started -Low dose Heparin -Will hold on starting Coumadin tonight and monitor pt for any signs of bleeding while on Heparin. Pt would not be a candidate for NOAC secondary to CKD -Continue PPI BID -Closely monitor (2) Atrial fibrillation: H/O Paroxysmal atrial fibrillation Was not on anticoagulation secondary to hx GI bleed in past on triple therapy Current rate controlled, asymptomatic -Continue metoprolol -Current on heparin IV secondary to RUE DVT (3) CAD (coronary artery disease): (4) Elevated troponin: Chronic elevated troponin Hx CAD s/p MITCHELL to LAD 05/2018, and MITCHELL to LAD 09/2018 Troponin: 0.078. This has improved from previous admission 10/2018 with troponin: 0.126. No CP, SOB EKG a-fib without acute ST elevations Recent echo 12/2018 showed improved EF of 55% -continue aspirin, plavix, statin, metoprolol (Spoke to Dr Howard and recommends pt continue Plavix, Aspirin since recent stent placement) (5) Diarrhea: Chronic intermittent diarrhea. 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 reports chronic intermittent diarrhea -Replace magnesium sulfate IV -Will hold oral supplement and monitor diarrhea status -monitor magnesium level (7) Ischemic cardiomyopathy: H/O ischemic cardiomyopathy after NE 09/2018. EF was 30% and was wearing lifevest. Repeat echo 12/2018 with EF: 55% and no further use of lifevest Appears euvolemic. No CP, increased LE edema -Continue lasix (8) CKD (chronic kidney disease): CKD IV-V. Has AV fistula. Not on HD yet. Follows with Dr Sterling Cr: 2.78. Baseline ~3 -Monitor renal functions -Avoid nephrotoxic agents when possible (9) Hyperglycemia: H/O hyperglycemic secondary to chronic steroid use A1c: 5.5 on 11/23/18 Random glucose 122 in ER -Hold home Humalog sliding scale -Novolog sliding scale per protocol (10) Chronic anemia: H/H: 11.4/33.5. Baseline Hgb ~9-10 -Monitor CBC -Closely monitor for signs of bleeding while on Heparin IV (11) Idiopathic pulmonary fibrosis: S/P Left lung transplant in 2012 at [facility]. Follows with Dr Rodriguez at [facility] -Continue mycophenolate, tacrolimus, Advair, albuterol, inhaled tobramycin, prednisone, Singulair, Bactrim, acyclovir, posaconazole, azithromycin (12) HTN (hypertension): BP stable -Continue metoprolol, doxazosin (13) GERD (gastroesophageal reflux disease): -Continue PPI BID (14) Mood disorder: -Continue fluoxetine DVT Prophylaxis -On IV Heparin Full Code as per discussion with pt Follows with Dr Carlton Lindo for routine care Pt was seen and care coordinated with Dr Beth. See addendum History of Present Illness Chief Complaint: Right arm pain and swelling Primary Care Provider: Carlton Lindo, Pt is 77 y/o M with complex PMH including PAF not on anticoagulation secondary to h/o reported GI bleed on triple therapy, NSTEMI in 05/2018 with MITCHELL to LAD and circumflex, NSTEMI 10/04/18 s/p stent to LAD with ischemic cardiomyopathy with EF: 30%, now with EF 55% on echo in 12/2018 and no longer on lifevest, PFO s/p closure, idiopathic pulmonary fibrosis s/p L lung transplant in 2012 at [facility], CKD V not yet on HD, GERD, h/o CVA, diabetes, chronic anemia, squamous cell skin cancer s/p Moh's and radiation, glaucoma, pancreatic mass s/p biopsy pseudocyst presented to ER with c/o RUE edema and pain. Pt states 2 days ago started with right arm pain from elbow to forearm. Today with noted edema and redness of right forearm and pain to entire arm with any type of movement. Pt denies any injury or trauma. H/O AV fistula to right arm (not in use as not on dialysis). Denies paresthesias. Pt on Plavix and aspirin with h/o NSTEMI with stent to LAD on 10/04/18. Pt with recent hospitalization 10/2018 for CHF and reports since has not had any increased LE edema and denies SOB. Pt reports chronic nausea. Reports always has nausea in mornings and some days improves throughout the day and sometimes has continuous nausea. Pt reports he often takes his morning medicines late in day secondary to nausea and admits that he also often does not take morning medication doses. States that did not take his medications for past 2 days. He reports his nausea feels like his baseline and doesn't feel that it is worse. He also reports chronic poor appetite. Denies any vomiting. Pt reports chronic watery diarrhea and some days has several episodes daily. Denies melena, hematochezia, hematuria, epistaxis. Denies any cough recently. Feels breathing is at his baseline. Denies fever/chills, diaphoresis, HARRIS, dizziness, syncope, vision changes, neck pain, CP, SOB, palpitations, hemoptysis, sore throat, choking, otalgia, rhinorrhea, abdominal pain, rashes, urinary symptoms. Allergies Allergy/AdvReac Type Severity Reaction Status Date / Time levofloxacin Allergy Intermediate ANAPHYLAXIS Verified 02/08/19 11:10 oxycodone Allergy Intermediate ANAPHYLAXIS Verified 02/08/19 11:10 cat dander Allergy Unknown CHEST Verified 02/08/19 11:10 TIGHTNESS Home Medications Home Medications Medication Instructions Recorded Confirmed Type acetaminophen [Tylenol Extra 500 mg PO Q6H PRN 05/09/18 02/08/19 History Strength] acyclovir 400 mg PO BID 05/09/18 02/08/19 History albuterol sulfate 2.5 mg INHALATION BID 05/09/18 02/08/19 History aspirin 81 mg PO QAM 05/09/18 02/08/19 History cholecalciferol (vitamin D3) 1,000 unit PO QAM 05/09/18 02/08/19 History doxazosin 8 mg PO PM 05/09/18 02/08/19 History fluticasone propion-salmeterol 1 inh INHALATION Q12H 05/09/18 02/08/19 History [Advair Diskus] furosemide [Lasix] 40 mg PO QAM 05/09/18 02/08/19 History montelukast [Singulair] 10 mg PO HS 05/09/18 02/08/19 History mycophenolate sodium [Myfortic] 180 mg PO BID 05/09/18 02/08/19 History omega-3 acid ethyl esters [Lovaza] 2 cap PO BID 05/09/18 02/08/19 History rosuvastatin [Crestor] 40 mg PO HS 05/09/18 02/08/19 History tacrolimus [Prograf] 0.5 mg PO BID 05/09/18 02/08/19 History clopidogrel 75 mg PO QAM 07/21/18 02/08/19 History fluoxetine 40 mg PO QAM 10/04/18 02/08/19 History azithromycin 250 mg tablet 250 mg PO 3XWK 10/19/18 02/08/19 History insulin lispro (U- 100) 100 See Rx Instructions SQ TID PRN 10/19/18 02/08/19 History unit/mL subcutaneous pen magnesium 71.5 mg (magnesium 143 mg PO QAM 10/19/18 02/08/19 History chloride) tablet,delayed release posaconazole 100 mg tablet,delayed 300 mg PO TID 10/19/18 02/08/19 History release prednisone 5 mg tablet 5 mg PO QAM 10/19/18 02/08/19 History sulfamethoxazole-trimethoprim 1 tab PO 2XWK 10/27/18 02/08/19 History tobramycin with nebulizer 150 mg INHALATION Q12H 10/27/18 02/08/19 History cyclobenzaprine 5 mg PO TID PRN 02/08/19 02/08/19 History darbepoetin nicholas in polysorbat 40 mcg SUBCUT WK 02/08/19 02/08/19 History metoprolol succinate [Toprol XL] 100 mg PO DAILY 02/08/19 02/08/19 History ondansetron HCl [Zofran] 4 mg PO Q8H 02/08/19 02/08/19 History pantoprazole 40 mg PO BID 02/08/19 02/08/19 History sodium bicarbonate 1,300 mg PO TID 02/08/19 02/08/19 History Past Med/Surg History Social History Preferred Language: [place] Communication Ability: Effective Telecommunication Tower Technician Required: No Beliefs That Will Affect Care: None marital status: Current Living Situation: Spouse current occupational status: retired Other Information That Helps Us Care for You: No Feels Safe at Home: Yes Safety Concerns: Feels Safe At This Time Smoking Status: Former smoker Tobacco Type: cigarettes ; Cigarettes Per Day: HX OF BRIEF SOCIAL USE WHILE IN , QUIT 45 YEARS AGO ; Do You Dip or Chew Tobacco: No ; Smoking End Date: 1974 ; Second Hand Exposure: No ; Hx Alcohol Use: Yes (3 drinks a day) Alcohol type: hard liquor Hx Substance Use: No caffeine: Yes (1 cup in am) Review of Systems Review of Systems: All systems reviewed & are unremarkable except as noted in HPI & below Physical Exam Physical Exam: General: no acute distress, chronic ill appearing, WDWN Head: normocephalic, atraumatic Eyes:irregular pupil and rightward gaze right eye, conjunctiva non-injected, anicteric ENT: normal inspection external ears, nose, mucous membranes moist Neck: supple, trachea midline, non-tender Lungs: no respiratory distress, coarse breath sounds scattered throughout CV: irregularly irregular, rate: 92, no JVD, no pre-tibial edema Abd: normal BS, soft, non-tender Ext:RUE: Right upper arm: +edema and erythema noted from elbow distally to wrist, +edema to fingers, limited raising, flexion and extension of right arm secondary to discomfort. +tenderness to palpation upper arm and forearm, ROM fi ngers intact, +AV fistula, distal pulses intact, brisk capillary refill; no calf tenderness Neuro: A&O to person, place, month, year, no focal deficits noted, normal affect Skin: warm, dry Results & Data Vital Signs (Past 12 Hours) Vital Signs Temp Pulse Pulse Resp BP BP Pulse Ox 02/08/19 16:00 80 17 104/65 02/08/19 15:30 87 19 104/67 02/08/19 15:09 101 H 106 H 22 118/66 118/66 96 02/08/19 15:01 103 H 20 103/59 L 02/08/19 15:00 96 H 19 02/08/19 14:31 79 28 H 141/84 H 98 02/08/19 14:05 75 18 129/69 96 02/08/19 14:00 92 H 28 H 129/69 100 02/08/19 13:30 74 29 H 121/72 98 02/08/19 13:11 85 22 126/85 97 02/08/19 13:00 93 H 30 H 126/85 100 02/08/19 12:55 91 H 24 136/73 98 02/08/19 12:37 88 18 02/08/19 11:24 91 H 17 99 02/08/19 11:17 89 99 02/08/19 10:41 36.9 C 92 H 20 121/66 98 02/08/19 10:34 82 20 121/66 99 Laboratory Results Short CBC 02/08/19 Range/Units 11:04 WBC 9.78 (4.8-10.8) K/uL Hgb 11.4 L (14.0-18.0) g/dL Hct 33.5 L (42-52) % Plt Count 141 (130-400) K/uL BMP 02/08/19 11:04 Sodium 138 Potassium 3.5 Chloride 105 Carbon Dioxide 22 BUN 37 H Creatinine 2.78 H Glucose 122 H Calcium 8.5 Cardiac Enzymes 02/08/19 Range/Units 11:04 Troponin I 0.078 H* (0-0.045) ng/ml Liver Function 02/08/19 Range/Units 11:04 Total Bilirubin 1.6 H (0.2-1) mg/dl AST 14 L (15-37) U/L ALT 17 (12-78) U/L Alkaline Phosphatase 83 (45-117) U/L Albumin 3.1 L (3.4-5.0) gm/dl Diagnostic Findings US RUE: IMPRESSION: 1. Patent arteriovenous fistula of the right upper extremity. 2. Occlusive and nonocclusive deep venous thrombi of the brachial veins. CXR: IMPRESSION: 1. Slight improvement in the right mid to lower lung zone airspace opacities 2. Right-sided bullous emphysema ECG Rate (beats per minute): 95 Rhythm: atrial fibrillation Supervising Physician Co-Signing Physician Notes Patient is a 78-year-old male with history of paroxysmal atrial fibrillation, coronary artery disease, CKD, idiopathic pulmonary fibrosis S/P left lung transplant and other medical problems presents with history of right upper extremity swelling, erythema, pain associated with decreased range of movement secondary to pain since 2 days duration. He denies any trauma. He also admits to have chronic diarrhea which has been intermittent. Please review HPI for complete details of presentation. Currently patient is not on any anticoagulation for paroxysmal atrial fibrillation secondary to history of GI bleed in the past. Right upper extremity Doppler studies suggestive of patent a rteriovenous fistula, occlusive and nonocclusive deep vein thrombosis of the brachial veins. On exam patient is chronically appearing, no apparent distress, normocephalic atraumatic, lungs--coarse breath sounds, irregularly irregular rhythm, no murmur, abdomen soft nontender, right upper extremity swelling, tenderness, erythema, decreased AROM, grossly no other focal neurological deficits. Patient is admitted for management of acute right upper extremity DVT. After explaining the risks versus benefits of using anticoagulation with the patient and family, patient is started on IV heparin for anticoagulation. Patient is not a candidate for NOAC secondary to renal insufficiency. Monitor H&H while on IV heparin. If no bleeding issues, consider starting on Coumadin. Patient is also on aspirin, Plavix for coronary artery disease. Chronic diarrhea likely secondary to magnesium supplements, CellCept. Given history of C. difficile, will check stool studies to rule out C. difficile. Hold magnesium supplements for now. I personally reviewed the record. Patient is interviewed and examined at bedside. Patient's care is coordinated with Bety Weathers PA-C. Please refer to the documentation above for details of patient's presentation and for discussion of other issues.
--- NOTE | 2019-02-08 16:57 | Emergency Department Note ---
Entered by Teodora Garibay acting as a scribe for Timmy Dotson MD History of Present Illness General Chief complaint: Arm Pain Time Seen by Provider: 02/08/19 10:32 Source: patient and family History of Present Illness Provider complaint: right arm pain Onset (ago): day(s) 1 Location: upper extremity and right Pain Consistency: + other (episode) Maximum Pain Intensity: 8 Exacerbated By: + movement Associated symptoms: + denies other symptoms (dialysis treatments) and + other (fistla in right arm, nausea, increased swelling in right arm); no chest pain The patient is a 78 year old male who presents to the ED with complaints of an episode of right arm pain that started 1 day ago. Per , the patient states that the arm pain yesterday was an 8/10 so they iced and elevated it. The patients said that yesterday night, the patients right arm become increasingly swollen. The patient notes that he has a fistula in his arm for precautionary reasons and denies ever receiving dialysis treatments. Per , the patient has also been complaining of nausea recently. The patient notes that the pain is exacerbated with movement. The patient denies chest pain. Home Medications Home Medications Medication Instructions Recorded Confirmed Type acetaminophen [Tylenol Extra 500 mg PO Q6H PRN 05/09/18 02/08/19 History Strength] acyclovir 400 mg PO BID 05/09/18 02/08/19 History albuterol sulfate 2.5 mg INHALATION BID 05/09/18 02/08/19 History aspirin 81 mg PO QAM 05/09/18 02/08/19 History cholecalciferol (vitamin D3) 1,000 unit PO QAM 05/09/18 02/08/19 History doxazosin 8 mg PO PM 05/09/18 02/08/19 History fluticasone propion-salmeterol 1 inh INHALATION Q12H 05/09/18 02/08/19 History [Advair Diskus] furosemide [Lasix] 40 mg PO QAM 05/09/18 02/08/19 History montelukast [Singulair] 10 mg PO HS 05/09/18 02/08/19 History mycophenolate sodium [Myfortic] 180 mg PO BID 05/09/18 02/08/19 History omega-3 acid ethyl esters [Lovaza] 2 cap PO BID 05/09/18 02/08/19 History rosuvastatin [Crestor] 40 mg PO HS 05/09/18 02/08/19 History tacrolimus [Prograf] 0.5 mg PO BID 05/09/18 02/08/19 History clopidogrel 75 mg PO QAM 07/21/18 02/08/19 History fluoxetine 40 mg PO QAM 10/04/18 02/08/19 History azithromycin 250 mg tablet 250 mg PO 3XWK 10/19/18 02/08/19 History insulin lispro (U- 100) 100 See Rx Instructions SQ TID PRN 10/19/18 02/08/19 History unit/mL subcutaneous pen magnesium 71.5 mg (magnesium 143 mg PO QAM 10/19/18 02/08/19 History chloride) tablet,delayed release posaconazole 100 mg tablet,delayed 300 mg PO TID 10/19/18 02/08/19 History release prednisone 5 mg tablet 5 mg PO QAM 10/19/18 02/08/19 History sulfamethoxazole-trimethoprim 1 tab PO 2XWK 10/27/18 02/08/19 History tobramycin with nebulizer 150 mg INHALATION Q12H 10/27/18 02/08/19 History cyclobenzaprine 5 mg PO TID PRN 02/08/19 02/08/19 History darbepoetin nicholas in polysorbat 40 mcg SUBCUT WK 02/08/19 02/08/19 History metoprolol succinate [Toprol XL] 100 mg PO DAILY 02/08/19 02/08/19 History ondansetron HCl [Zofran] 4 mg PO Q8H 02/08/19 02/08/19 History pantoprazole 40 mg PO BID 02/08/19 02/08/19 History sodium bicarbonate 1,300 mg PO TID 02/08/19 02/08/19 History Allergies Allergy/AdvReac Type Severity Reaction Status Date / Time levofloxacin Allergy Intermediate ANAPHYLAXIS Verified 02/08/19 11:10 oxycodone Allergy Intermediate ANAPHYLAXIS Verified 02/08/19 11:10 cat dander Allergy Unknown CHEST Verified 02/08/19 11:10 TIGHTNESS Past Med/Surg History Medical History Hyperglycemia (Chronic) Paroxysmal atrial fibrillation (Chronic) Idiopathic pulmonary fibrosis (Chronic) 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 GI CONCERNED AND FEELS SCOPE IS NECESSARY Surgical History S/P patent foramen ovale closure (Resolved) Lung transplant status (Chronic) Hx of heart artery stent (Chronic) S/P MITCHELL to LAD and circumflex after NSTEMI in 05/2018 History of cardiac cath STENTS X2 MAY 2018 (SEE [facility] [place]ORD ) Family History Father , in his seventies of cancer No problems noted. Mother , age 88 of CHF No problems noted. Daughter Age: 45 No problems noted. Son Age: 44 No problems noted. Other No significant family history Social History Preferred Language: Moroccan Communication Ability: Effective County Bailiff Required: No Beliefs That Will Affect Care: None marital status: Current Living Situation: Spouse current occupational status: retired Other Information That Helps Us Care for You: No Feels Safe at Home: Yes Safety Concerns: Feels Safe At This Time Smoking Status: Former smoker Tobacco Type: cigarettes ; Cigarettes Per Day: HX OF BRIEF SOCIAL USE WHILE IN , QUIT 45 YEARS AGO ; Do You Dip or Chew Tobacco: No ; Smoking End Date: 1974 ; Second Hand Exposure: No ; Hx Alcohol Use: Yes (3 drinks a day) Alcohol type: hard liquor Hx Substance Use: No caffeine: Yes (1 cup in am) Review of Systems See HPI for pertinent positives & negatives. and A total of 10 systems reviewed and were otherwise negative Physical Exam Vital Signs Vital Signs - 24 hr 02/08/19 10:34 02/08/19 10:41 02/08/19 11:17 Temperature 36.9 C Temperature Source Oral Sepsis Recent Fever Within 48 Hours No Sepsis New/Unexplained Change in Mental Status No Sepsis Action Taken by Nursing No Action Required Pulse Rate 82 92 H 89 Pulse Rate [Left] Pulse Rate from SpO2 Sensor 84 Respiratory Rate 20 20 Respiratory Effort / Characteristics Non-Labored Spontaneous Respiratory Depth Normal Respiratory Pattern Blood Pressure 121/66 121/66 Blood Pressure [Left Arm] Blood Pressure Mean 84 84 Blood Pressure Mean [Left Arm] Blood Pressure Position Lying Blood Pressure Position [Left Arm] Pulse Oximetry 99 98 99 Oxygen Delivery Method Room Air Room Air 02/08/19 11:24 02/08/19 12:37 02/08/19 12:55 Temperature Temperature Source Sepsis Recent Fever Within 48 Hours Sepsis New/Unexplained Change in Mental Status Sepsis Action Taken by Nursing Pulse Rate 91 H 88 91 H Pulse Rate [Left] Pulse Rate from SpO2 Sensor 93 H 88 Respiratory Rate 17 18 24 Respiratory Effort / Characteristics Respiratory Depth Respiratory Pattern Blood Pressure 136/73 Blood Pressure [Left Arm] Blood Pressure Mean 94 Blood Pressure Mean [Left Arm] Blood Pressure Position Blood Pressure Position [Left Arm] Pulse Oximetry 99 98 Oxygen Delivery Method 02/08/19 13:00 02/08/19 13:11 02/08/19 13:30 Temperature Temperature Source Sepsis Recent Fever Within 48 Hours Sepsis New/Unexplained Change in Mental Status Sepsis Action Taken by Nursing Pulse Rate 93 H 74 Pulse Rate [Left] 85 Pulse Rate from SpO2 Sensor 90 75 Respiratory Rate 30 H 22 29 H Respiratory Effort / Characteristics Spontaneous Respiratory Depth Respiratory Pattern Blood Pressure 126/85 121/72 Blood Pressure [Left Arm] 126/85 Blood Pressure Mean 98 88 Blood Pressure Mean [Left Arm] 98 Blood Pressure Position Blood Pressure Position [Left Arm] Lying Pulse Oximetry 100 97 98 Oxygen Delivery Method Room Air 02/08/19 14:00 02/08/19 14:05 02/08/19 14:31 Temperature Temperature Source Sepsis Recent Fever Within 48 Hours Sepsis New/Unexplained Change in Mental Status Sepsis Action Taken by Nursing Pulse Rate 92 H 79 Pulse Rate [Left] 75 Pulse Rate from SpO2 Sensor 88 79 Respiratory Rate 28 H 18 28 H Respiratory Effort / Characteristics Non-Labored Spontaneous Respiratory Depth Normal Respiratory Pattern Blood Pressure 129/69 141/84 H Blood Pressure [Left Arm] 129/69 Blood Pressure Mean 89 103 Blood Pressure Mean [Left Arm] 89 Blood Pressure Position Blood Pressure Position [Left Arm] Lying Pulse Oximetry 100 96 98 Oxygen Delivery Method Room Air 02/08/19 15:00 02/08/19 15:01 02/08/19 15:09 Temperature Temperature Source Sepsis Recent Fever Within 48 Hours Sepsis New/Unexplained Change in Mental Status Sepsis Action Taken by Nursing Pulse Rate 96 H 103 H 101 H Pulse Rate [Left] 106 H Pulse Rate from SpO2 Sensor Respiratory Rate 19 20 22 Respiratory Effort / Characteristics Non-Labored Spontaneous Respiratory Depth Respiratory Pattern Blood Pressure 103/59 L 118/66 Blood Pressure [Left Arm] 118/66 Blood Pressure Mean 73 83 Blood Pressure Mean [Left Arm] 83 Blood Pressure Position Blood Pressure Position [Left Arm] Lying Pulse Oximetry 96 Oxygen Delivery Method Room Air 02/08/19 15:30 02/08/19 15:54 02/08/19 16:00 Temperature Temperature Source Sepsis Recent Fever Within 48 Hours Sepsis New/Unexplained Change in Mental Status Sepsis Action Taken by Nursing Pulse Rate 87 80 Pulse Rate [Left] Pulse Rate from SpO2 Sensor Respiratory Rate 19 17 Respiratory Effort / Characteristics Non-Labored Spontaneous Respiratory Depth Normal Respiratory Pattern Regular Blood Pressure 104/67 104/65 Blood Pressure [Left Arm] Blood Pressure Mean 79 78 Blood Pressure Mean [Left Arm] Blood Pressure Position Blood Pressure Position [Left Arm] Pulse Oximetry Oxygen Delivery Method Room Air 02/08/19 16:30 Temperature Temperature Source Sepsis Recent Fever Within 48 Hours Sepsis New/Unexplained Change in Mental Status Sepsis Action Taken by Nursing Pulse Rate 87 Pulse Rate [Left] Pulse Rate from SpO2 Sensor Respiratory Rate 25 H Respiratory Effort / Characteristics Respiratory Depth Respiratory Pattern Blood Pressure 98/59 L Blood Pressure [Left Arm] Blood Pressure Mean 72 Blood Pressure Mean [Left Arm] Blood Pressure Position Blood Pressure Position [Left Arm] Pulse Oximetry Oxygen Delivery Method GENERAL: Awake, alert, chronically ill-appearing, in no distress HENT: Normocephalic, atraumatic. Oropharynx with dry mucous membranes and otherwise unremarkable. . EYES: Normal conjunctiva. Sclera non-icteric. NECK: Supple. No nuchal rigidity. FROM. No JVD. RESPIRATORY: Clear to auscultation bilaterally. CARDIAC: Regular rate, normal rhythm. Extremities warm and well perfused. Pulses equal. Right forearm AV fistula with thrill. ABDOMEN: Soft, non-distended. No tenderness to palpation. No rebound or guarding. No masses. RECTAL: Deferred. MUSCULOSKELETAL: Swelling, tenderness and erythema to right distal medial upper arm. Distal PMS intact. Chest examination reveals no tenderness. The back is symmetrical on inspection without obvious abnormality. There is no CVA tenderness to palpation. No joint edema. LOWER EXTREMITIES: Calves are equal size bilaterally and non-tender. No edema. No discoloration. NEURO: Normal sensorium. No sensory or motor deficits noted. SKIN: No rash or jaundice noted. Course 1035: Past medical records reviewed. The patient was evaluated in room B5. A complete history and physical exam was performed. 1048. [facility]: I discussed the patient's case with Dr. Raymond Ortiz, Hospitalist. he will evaluate the patient for further management. Consultations Consultation #1: [facility] Time: 10:48 Consultation #2: I discussed the patient's case with Dr. Raymond Ortiz, Hospitalist. he will evaluate the patient for further management. Time: 14:40 Administered Medications Acetaminophen (Tylenol) 650 mg PO Q4H PRN PRN Reason: Pain or Fever Stop: 03/10/19 17:20 Last Admin: 02/08/19 21:02 Dose: 650 mg Documented by: [id number] Acyclovir (Zovirax) 400 mg PO BID MARLYS; Protocol Stop: 03/10/19 20:59 Last Admin: 02/08/19 21:08 Dose: 400 mg Documented by: [id number] Albuterol (Ventolin 0.083% 2.5mg/3ml) 2.5 mg INH BIDR [facility]LYS Stop: 03/10/19 18:59 Last Admin: 02/08/19 20:03 Dose: 2.5 mg Documented by: [id number] Doxazosin Mesylate (Cardura) 8 mg PO PM [facility] Stop: 03/10/19 20:59 Last Admin: 02/08/19 21:07 Dose: 8 mg Documented by: [id number] Heparin Sodium/Dextrose (Heparin Sodium/Dextrose) 25,000 units in 500 mls @ 19 mls/hr IV .Q24H MARLYS; Protocol Stop: 03/10/19 17:44 Last Admin: 02/08/19 17:43 Dose: 950 units/hr, 19 mls/hr Documented by: [id number] Cosigned by: [id number] Insulin Aspart (Novolog Flexpen) 0 units SC ACHS [facility] Stop: 03/10/19 20:59 Last Admin: 02/08/19 21:24 Dose: Not Given Documented by: [id number] Cosigned by: [id number] Montelukast Sodium (Singulair) 10 mg PO HS [facility] Stop: 03/10/19 20:59 Last Admin: 02/08/19 21:08 Dose: 10 mg Documented by: [id number] Non-Formulary Medication (Posaconazole) 300 mg PO TID [facility] Stop: 03/10/19 20:59 Last Admin: 02/08/19 21:44 Dose: Not Given Documented by: [id number] Non-Formulary Medication (Mycophenolate Sodium [Myfortic]) 180 mg PO BID [facility] Stop: 03/10/19 20:59 Last Admin: 02/08/19 21:43 Dose: Not Given Documented by: [id number] Pantoprazole Sodium (Protonix) 40 mg PO BID [facility] Stop: 03/10/19 20:59 Last Admin: 02/08/19 21:08 Dose: 40 mg Documented by: [id number] Rosuvastatin Calcium (Crestor) 40 mg PO HS [facility] Stop: 03/10/19 20:59 Last Admin: 02/08/19 21:05 Dose: 40 mg Documented by: [id number] Fluticasone/Salmeterol (Advair Diskus 500/50) 1 puffs INH BID [facility] Stop: 03/10/19 20:59 Last Admin: 02/08/19 21:04 Dose: 1 puffs Documented by: [id number] Sodium Bicarbonate (Sodium Bicarbonate) 1,300 mg PO TID [facility] Stop: 03/10/19 20:59 Last Admin: 02/08/19 21:06 Dose: 1,300 mg Documented by: [id number] Tacrolimus (Prograf) 0.5 mg PO BID [facility] Stop: 03/10/19 20:59 Last Admin: 02/08/19 21:06 Dose: 0.5 mg Documented by: [id number] Discontinued Medications Heparin Sodium/Dextrose () 1 ea IV ONE ONE; Protocol Stop: 02/08/19 14:45 Last Admin: 02/08/19 16:25 Dose: Not Given Documented by: [id number] Heparin Sodium/Dextrose () 1 ea IV NOW STA; Protocol Stop: 02/08/19 14:40 Last Admin: 02/08/19 16:25 Dose: Not Given Documented by: [id number] Sodium Chloride (Nss) 250 mls @ 999 mls/hr IV .Q16M ONE Stop: 02/08/19 10:55 Last Infusion: 02/08/19 11:46 Dose: 0 mls/hr Documented by: [id number] Admin: 02/08/19 11:23 Dose: 999 mls/hr Documented by: [id number] Heparin Sodium/Dextrose (Heparin Sodium/Dextrose) 25,000 units in 500 mls @ 0.02 mls/hr IV .Q24H [facility]LYS; Protocol Stop: 03/10/19 14:44 Last Titration: 02/08/19 18:02 Dose: 0 units/hr, 0 mls/hr Documented by: [id number] Cosigned by: [id number] Titration: 02/08/19 17:40 Dose: 0 units/hr, 0 mls/hr Documented by: [id number] Cosigned by: [id number] Admin: 02/08/19 16:24 Dose: 1,400 units/hr, 28 mls/hr Documented by: [id number] Cosigned by: [id number] Magnesium Sulfate/Dextrose (Magnesium Sulfate / D5w) 1 gm in 100 mls @ 100 mls/hr IV Q1H [facility] Stop: 02/08/19 19:59 Last Infusion: 02/08/19 20:58 Dose: 0 mls/hr Documented by: [id number] Admin: 02/08/19 19:38 Dose: 100 mls/hr Documented by: [id number] Infusion: 02/08/19 19:31 Dose: 100 mls/hr Documented by: [id number] Admin: 02/08/19 18:31 Dose: 100 mls/hr Documented by: [id number] Non-Formulary Medication (Tobramycin With Nebulizer) 150 mg INH Q12H [facility] Stop: 03/10/19 17:20 Last Admin: 02/08/19 18:23 Dose: Not Given Documented by: [id number] Medical Decision Making Differential Diagnosis Differential diagnosis: Etiologies such as DVT, vascular ischemia, radiculopathy, fracture, hematoma/contusion, myositis, abscess, septic arthritis cellulitis, joint effusion, trauma, lymphedema, idiopathic, CHF, as well as others were entertained. Medical Records Attestation: I reviewed the patient's medical records. Home Medications Current Medication List: was personally reviewed by me Laboratory Data Attestation: I reviewed the patient's lab results. Result diagrams: 02/08/19 11:04 02/08/19 11:04 Lab Results 02/08/19 02/08/19 02/08/19 Range/Units 11:04 11:04 11:04 WBC 9.78 (4.8-10.8) K/uL RBC 3.19 L (4.7-6.1) M/uL Hgb 11.4 L (14.0-18.0) g/dL Hct 33.5 L (42-52) % MCV 105.0 H (80-100) fL MCH 35.7 H (25-34) pg MCHC 34.0 (32-36) g/dL RDW Std Deviation 53.0 H (36.4-46.3) fL RDW Coeff of Ros 13.9 (11.5-14.5) % Plt Count 141 (130-400) K/uL MPV 11.5 H (7.4-10.4) fL Immature Gran % (Auto) 0.2 % Neut % (Auto) 78.0 % Lymph % (Auto) 7.7 % [place] % (Auto) 12.2 % Eos % (Auto) 1.6 % Baso % (Auto) 0.3 % Immature Gran # (Auto) 0.02 (0.00-0.02) K/uL Neut # (Auto) 7.63 H (1.4-6.5) K/uL Lymph # (Auto) 0.75 L (1.2-3.4) K/uL [place] # (Auto) 1.19 H (0.11-0.59) K/uL Eos # (Auto) 0.16 (0-0.5) K/uL Baso # (Auto) 0.03 (0-0.2) K/uL PT 10.8 (9.0-12.0) Seconds INR 1.1 (0.9-1.1) APTT 27.3 (21.0-31.0) Seconds PTT Ratio 1.0 Sodium 138 (136-145) mmol/L Potassium 3.5 (3.5-5.1) mmol/L Chloride 105 (98-107) mmol/L Carbon Dioxide 22 (21-32) mmol/L Anion Gap 11.0 (3-11) BUN 37 H (7-18) mg/dl Creatinine 2.78 H (0.6-1.4) mg/dl Est Cr Clr Drug Dosing 24.4 ml/min Est GFR ( Amer) 24.3 Est GFR (Non-Af Amer) 21.0 BUN/Creatinine Ratio 13.4 (10-20) Glucose 122 H (70-99) mg/dl Calcium 8.5 (8.5-10.1) mg/dl Phosphorus (2.5-4.9) mg/dl Magnesium (1.8-2.4) mg/dl Total Bilirubin 1.6 H (0.2-1) mg/dl AST 14 L (15-37) U/L ALT 17 (12-78) U/L Alkaline Phosphatase 83 (45-117) U/L Troponin I 0.078 H* (0-0.045) ng/ml Total Protein 6.5 (6.4-8.2) gm/dl Albumin 3.1 L (3.4-5.0) gm/dl Globulin 3.4 (2.5-4.0) gm/dl Albumin/Globulin Ratio 0.9 (0.9-2) Lipase 146 (73-393) U/L 02/08/19 Range/Units 11:04 WBC (4.8-10.8) K/uL RBC (4.7-6.1) M/uL Hgb (14.0-18.0) g/dL Hct (42-52) % MCV (80-100) fL MCH (25-34) pg MCHC (32-36) g/dL RDW Std Deviation (36.4-46.3) fL RDW Coeff of Ros (11.5-14.5) % Plt Count (130-400) K/uL MPV (7.4-10.4) fL Immature Gran % (Auto) % Neut % (Auto) % Lymph % (Auto) % [place] % (Auto) % Eos % (Auto) % Baso % (Auto) % Immature Gran # (Auto) (0.00-0.02) K/uL Neut # (Auto) (1.4-6.5) K/uL Lymph # (Auto) (1.2-3.4) K/uL [place] # (Auto) (0.11-0.59) K/uL Eos # (Auto) (0-0.5) K/uL Baso # (Auto) (0-0.2) K/uL PT (9.0-12.0) Seconds INR (0.9-1.1) APTT (21.0-31.0) Seconds PTT Ratio Sodium (136-145) mmol/L Potassium (3.5-5.1) mmol/L Chloride (98-107) mmol/L Carbon Dioxide (21-32) mmol/L Anion Gap (3-11) BUN (7-18) mg/dl Creatinine (0.6-1.4) mg/dl Est Cr Clr Drug Dosing ml/min Est GFR ( Amer) Est GFR (Non-Af Amer) BUN/Creatinine Ratio (10-20) Glucose (70-99) mg/dl Calcium (8.5-10.1) mg/dl Phosphorus 2.4 L (2.5-4.9) mg/dl Magnesium 1.5 L (1.8-2.4) mg/dl Total Bilirubin (0.2-1) mg/dl AST (15-37) U/L ALT (12-78) U/L Alkaline Phosphatase (45-117) U/L Troponin I (0-0.045) ng/ml Total Protein (6.4-8.2) gm/dl Albumin (3.4-5.0) gm/dl Globulin (2.5-4.0) gm/dl Albumin/Globulin Ratio (0.9-2) Lipase (73-393) U/L Imaging Data Radiologist's Impression: Radiology results as stated below per my review and the radiologist's interpretation: US hemodialysis access HISTORY: 78 years-old Male eval for thrombosed fistula acute right arm pain and swelling extending from the medial elbow to the mid forearm. Right upper extremity fistula COMPARISON: None available TECHNIQUE: Multiple real time sonographic images of the right upper extremity w ere obtained assessing grayscale appearance, color and spectral flow FINDINGS: Arterial venous fistula of the right upper extremity is noted which appears to be involving the radial artery and cephalic vein. No significantly elevated peak systolic velocities within the fistula to suggest high-grade stenosis. The fistula appears patent. There is occlusive thrombus noted in one of the 2. Brachial veins of the upper arm. The other brachial vein demonstrates nonocclusive thrombus of the upper arm. Moderate subcutaneous edema. Mild stranding about the proximal right subclavian vein without occlusive thrombus identified. IMPRESSION: 1. Patent arteriovenous fistula of the right upper extremity. 2. Occlusive and nonocclusive deep venous thrombi of the brachial veins. The above report was generated using voice recognition software. It may contain grammatical, syntax or spelling errors. Electronically signed by: Nathaniel Dan M.D. 02/08/2019 12:53 PM ECG Data Attestation: I personally reviewed and interpreted this ECG as follows: Indication: other (arm pain) Rate (beats per minute): 95 Rhythm: atrial flutter (with variable AV block) Findings: + nonspecific-ST abn and + left axis deviation; no ST depression, no ST elevation and no acute ischemic change Blood Pressure Blood Pressure Findings: Normal blood pressure Blood Pressure Disposition: did not require urgent referral MDM Narrative The patient is a pleasant 78 y/o gentleman with a pmhx of CKD s/p right radio- cephalic AV fistula for possible future use, PAF not on AC 2/2 h/o GIB, ICM EF 30%, pulmonary fibrosis s/p lung transplantation who presents to the emergency department with worsening right upper arm swelling and pain that began last night per HPI. On arrival the patient is chronically ill appearing but in NAD, AFVSS. On exam the patient exhibits swelling, erythema, and warmth or distal, medial right upper arm. Thrill of radio-cephalic AV fistula initially difficulty to locate but was found. EKG demonstrates baseline afib without overt acute ischemia. CXR with improved RLL opacities. WBC wnl. H/H 11.4/33.5 improved from recent. Cr. 2.7 within baseline range. Troponin 0.078 similar to prior chronic elevations. US of patients RUE demonstrates patent AV fistula but with occlusive DVT of 1 of 2 brachial veins. Case d/w Judith Nunn, vascular surgery PAC and there are not concerns for fistula related to proximal DVT. Given patient's extensive comorbidities will admit patient for further management. Initial treatment for DVT initiated with Heparin gtt without bolus. Case was discussed with Humaira Weathers, [facility], who evaluate the patient for admission. Impression & Plan DVT (deep venous thrombosis), CKD (chronic kidney disease) Discharge Plan Visit Data *Final* Discharge Date/Time: 02/08/19 18:02 Chief Complaint: Arm Pain ED Provider: Timmy Dotson Discharge Problem: DVT (deep venous thrombosis), CKD (chronic kidney disease) Patient Disposition: Admitted As Inpatient Discharge Instructions Interventions: ED Discharge Assessment Last Done: 02/08/19 18:02 The scribe's documentation has been prepared under my direction and personally reviewed by me in its entirety. I confirm that the note above accurately reflects all work, treatment, procedures, and medical decision making performed by me.
[2019-02-08] MEDS ORDERED: GLUCAGON FOR INJ 1 MG VIAL SQ PRN (17:21)
[2019-02-08] MEDS ORDERED: CARBOHYDRATES FOR HYPOGLYCEMIA PO PRN (17:21)
[2019-02-08] MEDS ORDERED: GLUCOSE 10 TABS/TUBE PO PRN (17:21)
[2019-02-08] MEDS ORDERED: CYCLOBENZAPRINE HCL 5 MG TAB PO PRN (17:21)
[2019-02-08] MEDS ORDERED: Heparin IV Low Dose *NO* Bolus IV ONE (17:21)
[2019-02-08] MEDS ORDERED: DEXTROSE 50% 50 ML SYRINGE IV PRN (17:21)
[2019-02-08] MEDS ORDERED: TOBRAMYCIN INH SCH (17:21)
[2019-02-08] MEDS ORDERED: GLUCOSE 40% GEL 15 GM TUBE PO PRN (17:21)
[2019-02-08] MEDS ORDERED: [UNRECOGNIZED DRUG - OTHER] INH SCH (17:21)
[2019-02-08] MEDS: HEPARIN SODIUM/DEXTROSE 25,000 UNITS/500 ML BAG IV SCH (17:43)
[2019-02-08] MEDS: MAGNESIUM SULFATE / D5W 1 GM/100 ML BAG IV SCH ×2 (18:31→19:38)
[2019-02-08] MEDS: ALBUTEROL 0.083% NEBU SOLN 3 ML VIAL INH SCH (20:03)
[2019-02-08] MEDS ORDERED: NON-FORMULARY MEDICATION (Omega-3 Acid Ethyl Esters [Lovaza] 2 CAP) PO SCH (21:00)
[2019-02-08] MEDS: ACETAMINOPHEN 325 MG TAB PO PRN (21:02)
[2019-02-08] MEDS ORDERED: SODIUM CHLORIDE 0.9% 250 ML IV PRN (21:02)
[2019-02-08] MEDS: FLUTICASONE/SALMETEROL (ADVAIR) 500/50 INH 14 PUFF INH SCH (21:04)
[2019-02-08] MEDS: ROSUVASTATIN CALCIUM 20 MG TAB PO SCH (21:05)
[2019-02-08] MEDS: TACROLIMUS 0.5 MG CAP PO SCH (21:06)
[2019-02-08] MEDS: SODIUM BICARBONATE 650 MG TAB PO SCH (21:06)
[2019-02-08] MEDS: DOXAZosin MESYLATE 4 MG TAB PO SCH (21:07)
[2019-02-08] MEDS: ACYCLOVIR 400 MG TAB PO SCH (21:08)
[2019-02-08] MEDS: PANTOprazole 40 MG TAB PO SCH (21:08)
[2019-02-08] MEDS: MONTELUKAST SODIUM 10 MG TABLET PO SCH (21:08)
[2019-02-08] MEDS: INSULIN ASPART 100 UNITS/ML 3 ML PEN SC SCH (21:24)
[2019-02-08] MEDS: MYCOPHENOLATE SODIUM 180 MG PO SCH (21:43)
[2019-02-08] MEDS: POSACONAZOLE 300 MG PO SCH (21:44)
[2019-02-09 00:28] LABS: Partial Thromboplastin Ratio 2.1
[2019-02-09 00:37] LABS: Partial Thromboplastin Time 56.5 Seconds (21.0-31.0)
[2019-02-09] MEDS: HEPARIN SODIUM/DEXTROSE 25,000 UNITS/500 ML BAG IV SCH ×2 (06:59→17:41)
[2019-02-09] MEDS: ALBUTEROL 0.083% NEBU SOLN 3 ML VIAL INH SCH ×2 (07:09→19:32)
[2019-02-09] MEDS: TOBRAMYCIN SULFATE INH SCH ×2 (07:09→19:32)
[2019-02-09 07:36] LABS: Hematocrit (blood only) 30.5 % (42-52); Hemoglobin 10.2 g/dL (14.0-18.0); Mean Corpuscular Hgb Conc 33.4 g/dL (32-36); Mean Corpuscular Volume 104.5 fL (80-100); Mean Platelet Volume 11.8 fL (7.4-10.4); Platelet Count 152 K/uL (130-400); RDW Coefficient of Variation 14.2 % (11.5-14.5); Red Blood Count 2.92 M/uL (4.7-6.1); White Blood Count 6.47 K/uL (4.8-10.8)
[2019-02-09 08:16] LABS: BUN Creatinine Ratio 13.7 (10-20); Calcium 8.5 mg/dl (8.5-10.1); Creatinine Clr Calc Pharmacy 23.1 ml/min; Est GFR (African American) 23.8; Est GFR (Non-African American) 20.5; Magnesium 2.4 mg/dl (1.8-2.4); Potassium 3.2 mmol/L (3.5-5.1)
[2019-02-09 08:20] LABS: Partial Thromboplastin Time 53.3 Seconds (21.0-31.0)
[2019-02-09 08:25] LABS: Phosphorus 3.7 mg/dl (2.5-4.9)
[2019-02-09] MEDS: FLUTICASONE/SALMETEROL (ADVAIR) 500/50 INH 14 PUFF INH SCH ×2 (08:33→20:49)
[2019-02-09] MEDS: INSULIN ASPART 100 UNITS/ML 3 ML PEN SC SCH ×4 (08:34→20:54)
[2019-02-09] MEDS: SULFA/TRIMETH 400/80MG TAB PO SCH (08:36)
[2019-02-09] MEDS: FLUOXETINE HCL 20 MG CAP PO SCH (08:36)
[2019-02-09] MEDS: CHOLECALCIFEROL 1,000 UNITS TAB PO SCH (08:36)
[2019-02-09] MEDS: predniSONE 5 MG TAB PO SCH (08:36)
[2019-02-09] MEDS: METOPROLOL SUCC 50MG EXT REL TAB PO SCH (08:37)
[2019-02-09] MEDS: FUROSEMIDE 40 MG TAB PO SCH (08:37)
[2019-02-09] MEDS: PANTOprazole 40 MG TAB PO SCH ×2 (08:38→20:57)
[2019-02-09] MEDS: ACYCLOVIR 400 MG TAB PO SCH ×2 (08:38→20:58)
[2019-02-09] MEDS: TACROLIMUS 0.5 MG CAP PO SCH ×2 (08:38→20:57)
[2019-02-09] MEDS: CLOPIDOGREL BISULFATE 75 MG TAB PO SCH (08:38)
[2019-02-09] MEDS: SODIUM BICARBONATE 650 MG TAB PO SCH ×3 (08:39→20:57)
[2019-02-09] MEDS: ASPIRIN 81 MG ECTAB PO SCH (09:29)
[2019-02-09] MEDS ORDERED: POSACONAZOLE 300 MG PO SCH ×2 (12:30→21:00)
[2019-02-09] MEDS ORDERED: MYCOPHENOLATE SODIUM 180 MG PO SCH ×2 (12:30→21:00)
--- NOTE | 2019-02-09 16:11 | Hospitalist Progress Note ---
Date of Service February 09, 2019 Assessment & Plan (1) Deep vein thrombosis (DVT) of brachial vein of right upper extremity: Pt presented with c/o RUE edema and erythema x 2 days. H/O AV fistula to right arm. Not on dialysis yet. Pt with complex PMH. Reported hx GI bleed on triple therapy in past. US RUE: 1. Patent arteriovenous fistula of the right upper extremity. 2. Occlusive and nonocclusive deep venous thrombi of the brachial veins. No current signs of bleeding Patient started on IV heparin weight-based protocol -Patient also on dual antiplatelet aspirin and Plavix for recent coronary artery stent placement Prior history of GI bleed We will start with low-dose Coumadin tomorrow and gradually increase dose for goal INR of 23 Patient cannot be on NOAC's/or go home with Lovenox bridge therapy secondary to advanced CKD (2) Atrial fibrillation: H/O Paroxysmal atrial fibrillation Was not on anticoagulation secondary to hx GI bleed in past on triple therapy Current rate controlled, asymptomatic -Continue metoprolol -Current on heparin IV secondary to RUE DVT Will start on low-dose Coumadin tomorrow Watch closely for evidence of bleeding: Counseling provided to patient by nursing with any evidence of dark stool (3) CAD (coronary artery disease): Recent MITCHELL stent to LAD on 09/2018 Continue dual antiplatelet aspirin and Plavix_needs uninterrupted therapy for 12 months On IV heparin for right upper extremity extensive DVT (4) Elevated troponin: Chronic elevated troponin Hx CAD s/p MITCHELL to LAD 05/2018, and MITCHELL to LAD 09/2018 Chronically elevated troponin, the setting of advanced CKD No CP, SOB EKG a-fib without acute ST elevations Recent echo 12/2018 showed improved EF of 55% -continue aspirin, plavix, statin, metoprolol (Spoke to Dr Howard and recommends pt to be continued Plavix, Aspirin since recent stent placement) (5) Diarrhea: -Report of loose bowel movement today Chronic intermittent diarrhea. 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 EF was 30% and was wearing lifevest. Repeat echo 12/2018 with EF: 55% and no further use of lifevest Appears euvolemic. No CP, increased LE edema -Continue lasix (8) CKD (chronic kidney disease): CKD IV-V. Has AV fistula. Not on HD yet. Follows with Dr Sterling Cr: 2.78. Baseline ~3 -Monitor renal functions -Avoid nephrotoxic agents when possible (9) Hyperglycemia: H/O hyperglycemic secondary to chronic steroid use A1c: 5.5 on 11/23/18 Random glucose 122 in ER -Hold home Humalog sliding scale -Novolog sliding scale per protocol (10) Chronic anemia: H/H: 11.4/33.5. Baseline Hgb ~9-10 -Monitor CBC -Closely monitor for signs of bleeding while on Heparin IV (11) Idiopathic pulmonary fibrosis: S/P Left lung transplant in 2012 at [facility]. Follows with Dr Rodriguez at [facility] -Continue mycophenolate, tacrolimus, Advair, albuterol, inhaled tobramycin, prednisone, Singulair, Bactrim, acyclovir, posaconazole, azithromycin (12) HTN (hypertension): BP stable -Continue metoprolol, doxazosin (13) GERD (gastroesophageal reflux disease): -Continue PPI BID (14) Mood disorder: -Continue fluoxetine DVT Prophylaxis -On IV Heparin Full Code as per discussion with pt Follows with Dr Carlton Lindo for routine care Disposition: Lives at home with , PT OT evaluation will be requested prior to discharge To discharge home when medically stable Patient will need to follow-up with anticoagulation clinic for monitoring of PT/INR Subjective Continues to have significant swelling erythema on right arm more pronounced on elbow area Denies of any pain or discomfort No fever or chills, no shortness of breath Tolerating IV heparin well Bleeding complication noted Physical Exam Constitutional: WD/WN, vitals as above no acute distress Eyes: + eyes dysmorphic (Right eye distorted, smaller size possible secondary to prior trauma) ENMT: external ear and nose normal, oropharynx normal Neck: trachea midline, no thyromegaly Respiratory: normal respiratory effort, lungs clear to auscultation Cardiovascular: RRR, no murmur, no edema Gastrointestinal (Abdomen): normal bowel sounds, soft, nontender, no hepatosplenomegaly Musculoskeletal: Diffusely swelled up right arm, with surrounding erythema, Increased warmth or tenderness appreciated Neurologic: PERRL, EOMI, accommodation nl, no face palsy, no dysarthria Psychiatric: A+Ox3, euthymic affect Results & Data Vital Signs (Past 12 Hours) Vital Signs Temp Pulse Pulse Resp BP Pulse Ox 02/09/19 15:59 66 02/09/19 15:41 36.4 C L 70 18 123/73 97 02/09/19 11:21 36.6 C 79 18 105/66 96 02/09/19 07:33 77 02/09/19 07:11 71 20 98 02/09/19 07:06 36.6 C 69 18 171/79 H 97
[2019-02-09] MEDS: POSACONAZOLE 300 MG PO SCH ×2 (16:49→20:55)
[2019-02-09] MEDS: MYCOPHENOLATE SODIUM 180 MG PO SCH ×2 (16:49→20:55)
[2019-02-09] MEDS ORDERED: WARFARIN SOD 1 MG TAB PO STA (18:29)
[2019-02-09] MEDS: DOXAZosin MESYLATE 4 MG TAB PO SCH (20:50)
[2019-02-09] MEDS: ROSUVASTATIN CALCIUM 20 MG TAB PO SCH (20:50)
[2019-02-09] MEDS: MONTELUKAST SODIUM 10 MG TABLET PO SCH (20:58)
[2019-02-10 06:26] LABS: Hematocrit (blood only) 28.8 % (42-52); Hemoglobin 9.7 g/dL (14.0-18.0); Mean Corpuscular Hgb Conc 33.7 g/dL (32-36); Mean Corpuscular Volume 105.1 fL (80-100); Mean Platelet Volume 11.9 fL (7.4-10.4); Platelet Count 150 K/uL (130-400); RDW Coefficient of Variation 14.1 % (11.5-14.5); RDW Standard Deviation 53.2 fL (36.4-46.3); Red Blood Count 2.74 M/uL (4.7-6.1); White Blood Count 7.09 K/uL (4.8-10.8)
[2019-02-10 06:47] LABS: Partial Thromboplastin Ratio 2.2; Prothrombin Time 10.3 Seconds (9.0-12.0)
[2019-02-10] MEDS: ALBUTEROL 0.083% NEBU SOLN 3 ML VIAL INH SCH ×2 (07:01→19:14)
[2019-02-10] MEDS: TOBRAMYCIN SULFATE INH SCH ×2 (07:01→19:51)
[2019-02-10 07:04] LABS: Partial Thromboplastin Time 59.8 Seconds (21.0-31.0)
[2019-02-10] MEDS: METOPROLOL SUCC 50MG EXT REL TAB PO SCH (07:58)
[2019-02-10] MEDS: CHOLECALCIFEROL 1,000 UNITS TAB PO SCH (07:58)
[2019-02-10] MEDS: FUROSEMIDE 40 MG TAB PO SCH (07:58)
[2019-02-10] MEDS: CLOPIDOGREL BISULFATE 75 MG TAB PO SCH (07:58)
[2019-02-10] MEDS: PANTOprazole 40 MG TAB PO SCH ×2 (07:58→21:43)
[2019-02-10] MEDS: FLUOXETINE HCL 20 MG CAP PO SCH (07:59)
[2019-02-10] MEDS: ACYCLOVIR 400 MG TAB PO SCH ×2 (07:59→21:43)
[2019-02-10] MEDS: ASPIRIN 81 MG ECTAB PO SCH (07:59)
[2019-02-10] MEDS: SODIUM BICARBONATE 650 MG TAB PO SCH ×3 (07:59→21:43)
[2019-02-10] MEDS: AZITHROMYCIN 250 MG TAB PO SCH (07:59)
[2019-02-10] MEDS: predniSONE 5 MG TAB PO SCH (08:00)
[2019-02-10] MEDS: MYCOPHENOLATE SODIUM 180 MG PO SCH ×2 (08:00→21:40)
[2019-02-10] MEDS: FLUTICASONE/SALMETEROL (ADVAIR) 500/50 INH 14 PUFF INH SCH ×2 (08:00→21:38)
[2019-02-10] MEDS: TACROLIMUS 0.5 MG CAP PO SCH ×2 (08:00→21:43)
[2019-02-10] MEDS: INSULIN ASPART 100 UNITS/ML 3 ML PEN SC SCH ×4 (08:01→21:41)
--- NOTE | 2019-02-10 10:24 | Hospitalist Progress Note ---
Date of Service February 10, 2019 Assessment & Plan (1) Deep vein thrombosis (DVT) of brachial vein of right upper extremity: Pt presented with c/o RUE edema and erythema x 2 days. Pt with complex PMH. Reported hx GI bleed in past. Risk factor for right upper extremity DVT: Status post AV fistula to right arm.( Not on dialysis yet. ) US RUE: 1. Patent arteriovenous fistula of the right upper extremity. 2. Occlusive and nonocclusive deep venous thrombi of the brachial veins. Patient started on IV heparin weight-based protocol Started on low-dose Coumadin 1 mg daily/and gradually increase dose for goal INR of 23 -Patient also needs to be on uninterrupted dual antiplatelet aspirin and Plavix for recent coronary artery stent placement(09/2018) Prior history of GI bleed Monitor very closely for any evidence of bleeding or blood loss Patient cannot be on NOAC's/or go home with Lovenox bridge therapy secondary to advanced CKD (2) Atrial fibrillation: H/O Paroxysmal atrial fibrillation Was not on anticoagulation secondary to hx GI bleed in past Already on dual antiplatelet therapy: Aspirin and Plavix for MITCHELL PTCA/CAD Currently rate controlled, asymptomatic -Continue metoprolol -Current on heparin IV secondary to RUE DVT Started on low-dose Coumadin Watch closely for evidence of bleeding: Counseling provided to patient notifying nursing with any evidence of dark stool (3) CAD (coronary artery disease): Recent MITCHELL stent to LAD on 09/2018 Continue dual antiplatelet aspirin and Plavix_needs uninterrupted therapy for 12 months On IV heparin for right upper extremity extensive DVT Started on Coumadin: Very high risk for bleeding We will continue to follow H&H very closely Given right upper extremity provoked DVT: AV fistula on right arm Patient possibly will need to just 3 months of anticoagulation (4) Elevated troponin: Chronic elevated troponin Hx CAD s/p MITCHELL to LAD 05/2018, and MITCHELL to LAD 09/2018 Chronically elevated troponin, the setting of advanced CKD No CP, SOB EKG a-fib without acute ST elevations Recent echo 12/2018 showed improved EF of 55% -continue aspirin, plavix, statin, metoprolol (anticoagulation was discussed with cardiology Dr Howard and recommends pt to be continued Plavix, Aspirin since recent stent placement) (5) Diarrhea: No report of loose bowel movement today Chronic intermittent diarrhea. 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 EF was 30% and was wearing lifevest. Repeat echo 12/2018 with EF: 55% and no further use of lifevest Appears euvolemic. No CP, increased LE edema -Continue lasix (8) CKD (chronic kidney disease): CKD IV-V. Has AV fistula. Not on HD yet. Follows with Dr Sterling Cr: 2.78. Baseline ~3 -Monitor renal functions -Avoid nephrotoxic agents when possible (9) Hyperglycemia: H/O hyperglycemic secondary to chronic steroid use A1c: 5.5 on 11/23/18 Random glucose 122 in ER -Hold home Humalog sliding scale -Novolog sliding scale per protocol (10) Chronic anemia: H/H: 11.4/33.5. Baseline Hgb ~9-10 -Monitor CBC Hemoglobin 9.7 today, gradual decline in hemoglobin noted since admission -10-9 0.7 -Closely monitor for signs of bleeding while on Heparin IV (11) Idiopathic pulmonary fibrosis: S/P Left lung transplant in 2012 at [facility]. Follows with Dr Rodriguez at [facility] -Patient is continued with mycophenolate, tacrolimus, Advair, albuterol, inhaled tobramycin(change to IV as [facility] pharmacy does not have inhaled formulation), prednisone, Singulair, Bactrim, acyclovir, posaconazole, azithromycin Mr. London was worried about starting on Coumadin, concern about his drug reaction with his transplant meds Patient is on multiple antirejection meds/prophylactic antibiotics/antifungals : Antifungal posaconazole-does have drug drug interaction with Coumadin, which can lead to elevated INR Will need very close monitoring of PT/INR and Coumadin dosing anticoagulation clinic [facility] lung transplant center contactedper patient's request Spoke with client care coordinator on #[phone] Plan of care discussed with Dr.Silpa Rodriguez -Lung transplant Physician Okay with the Coumadin, Recommends close monitoring for bleeding complication: Secondary to dual antiplatelet and Coumadin Patient's current records, H&P, imaging, progress notes: Will be faxed to [facility] lung transplant center Fax number #[phone] Attention to: Dr.Sipa Rodriguez (12) HTN (hypertension): BP stable -Continue metoprolol, doxazosin (13) GERD (gastroesophageal reflux disease): -Continue PPI BID (14) Mood disorder: -Continue fluoxetine DVT Prophylaxis -On IV Heparin/Coumadin Full Code as per discussion with pt Follows with Dr Carlton Lindo for routine care Disposition: Lives at home with , PT OT evaluation requested To discharge home when medically stable Patient will need to follow-up with anticoagulation clinic at [facility] for monitoring of PT/INR/coumadin dosing Coumadin clinic will be updated Plan of care discussed with patient's today, updated Subjective Right upper extremity swelling, erythema has improved since yesterday, Minimal swelling on the right arm, still have significant amount of swelling on the need lower arm below the antecubital region On IV heparin bridge, started on very low dose of Coumadin 1 mg p.o. daily yesterday No evidence of bleeding: No black starry stool, no epistaxis no hematemesis or melena noted Patient denies of any complain /feels right arm pain has improved Physical Exam Constitutional: WD/WN, vitals as above no acute distress Eyes: + eyes dysmorphic (Right eye distorted, smaller size possible secondary to prior trauma) ENMT: external ear and nose normal, oropharynx normal Neck: trachea midline, no thyromegaly Respiratory: normal respiratory effort, lungs clear to auscultation Cardiovascular: RRR, no murmur, no edema Gastrointestinal (Abdomen): normal bowel sounds, soft, nontender, no hepatosplenomegaly Musculoskeletal: Extremities: + upper extremity abnormal to inspection (upper ext swelling and erythema ) Right Neurologic: PERRL, EOMI, accommodation nl, no face palsy, no dysarthria Psychiatric: A+Ox3, euthymic affect Results & Data Vital Signs (Past 12 Hours) Vital Signs Temp Pulse Pulse Resp BP Pulse Ox 02/10/19 09:00 61 02/10/19 07:30 67 18 181/90 H 99 02/10/19 07:01 68 18 99 02/10/19 03:15 36.7 C 72 20 158/74 H 97 02/10/19 00:42 71
[2019-02-10] MEDS: WARFARIN SOD 1 MG TAB PO SCH (15:42)
[2019-02-10] MEDS: HEPARIN SODIUM/DEXTROSE 25,000 UNITS/500 ML BAG IV SCH (18:39)
[2019-02-10] MEDS: DOXAZosin MESYLATE 4 MG TAB PO SCH (21:38)
[2019-02-10] MEDS: ROSUVASTATIN CALCIUM 20 MG TAB PO SCH (21:40)
[2019-02-10] MEDS: POSACONAZOLE 300 MG PO SCH (21:42)
[2019-02-10] MEDS: MONTELUKAST SODIUM 10 MG TABLET PO SCH (21:43)
[2019-02-11] MEDS: ALBUTEROL 0.083% NEBU SOLN 3 ML VIAL INH SCH ×2 (07:22→19:07)
[2019-02-11] MEDS: TOBRAMYCIN SULFATE INH SCH ×2 (07:22→19:21)
[2019-02-11 07:55] LABS: Partial Thromboplastin Ratio 1.9; Prothrombin Time 10.5 Seconds (9.0-12.0)
[2019-02-11 07:57] LABS: Partial Thromboplastin Time 51.1 Seconds (21.0-31.0)
[2019-02-11] MEDS: FLUTICASONE/SALMETEROL (ADVAIR) 500/50 INH 14 PUFF INH SCH ×2 (08:59→20:21)
[2019-02-11] MEDS: ACYCLOVIR 400 MG TAB PO SCH ×2 (09:00→21:08)
[2019-02-11] MEDS: CLOPIDOGREL BISULFATE 75 MG TAB PO SCH (09:00)
[2019-02-11] MEDS: METOPROLOL SUCC 50MG EXT REL TAB PO SCH (09:00)
[2019-02-11] MEDS: CHOLECALCIFEROL 1,000 UNITS TAB PO SCH (09:00)
[2019-02-11] MEDS: predniSONE 5 MG TAB PO SCH (09:02)
[2019-02-11] MEDS: PANTOprazole 40 MG TAB PO SCH ×2 (09:02→21:07)
[2019-02-11] MEDS: ASPIRIN 81 MG ECTAB PO SCH (09:04)
[2019-02-11] MEDS: FUROSEMIDE 40 MG TAB PO SCH (09:04)
[2019-02-11] MEDS: TACROLIMUS 0.5 MG CAP PO SCH ×2 (09:05→20:22)
[2019-02-11] MEDS: SODIUM BICARBONATE 650 MG TAB PO SCH ×3 (09:07→20:22)
[2019-02-11] MEDS: FLUOXETINE HCL 20 MG CAP PO SCH (09:07)
[2019-02-11] MEDS: INSULIN ASPART 100 UNITS/ML 3 ML PEN SC SCH ×4 (09:08→21:06)
[2019-02-11] MEDS: MYCOPHENOLATE SODIUM 180 MG PO SCH ×2 (09:15→21:08)
--- NOTE | 2019-02-11 15:34 | Hospitalist Progress Note ---
Date of Service February 11, 2019 Assessment & Plan (1) Deep vein thrombosis (DVT) of brachial vein of right upper extremity: Pt presented with c/o RUE edema and erythema x 2 days. US RUE: 1. Patent arteriovenous fistula of the right upper extremity. 2. Occlusive and nonocclusive deep venous thrombi of the brachial veins. Risk factor for right upper extremity DVT: Status post AV fistula to right arm.( Not on dialysis yet. ) Patient started on IV heparin weight-based protocol Started on low-dose Coumadin 1 mg daily/and gradually increase dose for goal INR of 23 -Patient also needs to be on uninterrupted dual antiplatelet aspirin and Plavix for recent coronary artery stent placement(09/2018) Prior history of GI bleed Monitor very closely for any evidence of bleeding or blood loss Patient cannot be on NOAC's/or go home with Lovenox bridge therapy secondary to advanced CKD (2) CAD (coronary artery disease): Recent MITCHELL stent to LAD on 09/2018 Continue dual antiplatelet aspirin and Plavix_needs uninterrupted therapy for 12 months On IV heparin for right upper extremity extensive DVT Started on Coumadin: Very high risk for bleeding We will continue to follow H&H very closely Given right upper extremity provoked DVT: AV fistula on right arm Patient possibly will need to just 3 months of anticoagulation (3) Idiopathic pulmonary fibrosis: S/P Left lung transplant in 2012 at [facility]. Follows with Dr Rodriguez at [facility] -Patient is continued with mycophenolate, tacrolimus, Advair, albuterol, inhaled tobramycin(change to IV as [facility] pharmacy does not have inhaled formulation), prednisone, Singulair, Bactrim, acyclovir, posaconazole, azithromycin Mr. London was worried about starting on Coumadin, concern about his drug reaction with his transplant meds Patient is on multiple antirejection meds/prophylactic antibiotics/antifungals : Antifungal posaconazole-does have drug drug interaction with Coumadin, which can lead to elevated INR Will need very close monitoring of PT/INR and Coumadin dosing anticoagulation clinic [facility] lung transplant center contactedper patient's request Spoke with digital asset coordinator on #[phone] Plan of care discussed with Dr.Silpa Rodriguez -Lung transplant Physician Okay with the Coumadin, Recommends close monitoring for bleeding complication: Secondary to dual antiplatelet and Coumadin Patient's current records, H&P, imaging, progress notes: Will be faxed to [facility] lung transplant center Fax number #[phone] Attention to: Dr.Sipa Rodriguez (4) Atrial fibrillation: H/O Paroxysmal atrial fibrillation Was not on anticoagulation secondary to hx GI bleed in past Already on dual antiplatelet therapy: Aspirin and Plavix for for drug-eluting coronary artery stent placed on September 2018 Currently rate controlled, asymptomatic -Continue metoprolol - on heparin IV secondary to RUE DVT Started on low-dose Coumadin Watch closely for evidence of bleeding: Counseling provided to patient notifying nursing with any evidence of dark stool (5) GERD (gastroesophageal reflux disease): -Continue PPI BID (6) HTN (hypertension): BP stable -Continue metoprolol, doxazosin (7) Elevated troponin: Chronic elevated troponin Hx CAD s/p MITCHELL to LAD 05/2018, and MITCHELL to LAD 09/2018 Chronically elevated troponin, the setting of advanced CKD No CP, SOB EKG a-fib without acute ST elevations Recent echo 12/2018 showed improved EF of 55% -continue aspirin, plavix, statin, metoprolol (anticoagulation was discussed with cardiology Dr Howard and recommends pt to be continued Plavix, Aspirin since recent stent placement) (8) Diarrhea: Resolved, Chronic intermittent diarrhea. 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 EF was 30% and was wearing lifevest. Repeat echo 12/2018 with EF: 55% and no further use of lifevest Appears euvolemic. No CP, increased LE edema -Continue lasix (11) CKD (chronic kidney disease): CKD IV-V. Has AV fistula. Not on HD yet. Follows with Dr Sterling Cr: 2.78. Baseline ~3 -Monitor renal functions -Avoid nephrotoxic agents when possible (12) Hyperglycemia: H/O hyperglycemic secondary to chronic steroid use A1c: 5.5 on 11/23/18 -Novolog sliding scale per protocol (13) Chronic anemia: H/H: 11.4/33.5. Baseline Hgb ~9-10 -Monitor CBC Hemoglobin 9.7 today, gradual decline in hemoglobin noted since admission 0.7 -Closely monitor for signs of bleeding while on Heparin IV and Coumadin (14) Mood disorder: -Continue fluoxetine DVT Prophylaxis -On IV Heparin/Coumadin Full Code as per discussion with pt Follows with Dr Carlton Lindo for routine care Disposition: Lives at home with , PT OT evaluation requested To discharge home when medically stable Patient will need to follow-up with anticoagulation clinic at [facility] for monitoring of PT/INR/coumadin dosing Coumadin clinic will be updated Plan of care discussed with patient's today, updated Subjective Patient feels well, denies of any discomfort, no bleeding complication so far, IV heparin and Coumadin Wants to know when he can be discharged home Right arm still has swelling, improved since admission, no tenderness, no increased warmth No complaint of shortness of breath, no hypoxia Fever chills Review of Systems Review of Systems: All systems reviewed & are unremarkable except as noted in HPI & below Physical Exam Constitutional: WD/WN, vitals as above no acute distress Eyes: + eyes dysmorphic (Right eye distorted, smaller size possible secondary to prior trauma) ENMT: external ear and nose normal, oropharynx normal Neck: trachea midline, no thyromegaly Respiratory: normal respiratory effort, lungs clear to auscultation Cardiovascular: RRR, no murmur, no edema Gastrointestinal (Abdomen): normal bowel sounds, soft, nontender, no hepatosplenomegaly Musculoskeletal: Extremities: + upper extremity abnormal to inspection (upper ext swelling and erythema ) Right Neurologic: PERRL, EOMI, accommodation nl, no face palsy, no dysarthria Psychiatric: A+Ox3, euthymic affect Results & Data Vital Signs (Past 12 Hours) Vital Signs Temp Pulse Resp BP Pulse Ox 02/11/19 15:20 36.8 C 71 20 125/71 97 02/11/19 11:45 36.9 C 66 22 141/71 H 98 02/11/19 07:27 36.7 C 60 21 180/74 H 100 02/11/19 07:24 61 16 98 (1) Deep vein thrombosis (DVT) of brachial vein of right upper extremity Chronicity: acute Qualified Code(s): I82.621 - Acute embolism and thrombosis of deep veins of right upper extremity (2) Atrial fibrillation Atrial fibrillation type: paroxysmal Qualified Code(s): I48.0 - Paroxysmal atrial fibrillation (3) CAD (coronary artery disease) Coronary Disease-Associated Artery/Lesion type: ambler artery [place] vs. transplanted heart: ambler heart Associated angina: without angina Qualified Code(s): I25.10 - Atherosclerotic heart disease of ambler coronary artery without angina pectoris (4) HTN (hypertension) Hypertension type: unspecified Qualified Code(s): I10 - Essential (primary) hypertension (5) GERD (gastroesophageal reflux disease) Esophagitis presence: esophagitis presence not specified Qualified Code(s): K21.9 - Gastro-esophageal reflux disease without esophagitis
[2019-02-11] MEDS: WARFARIN SOD 1 MG TAB PO SCH (15:36)
[2019-02-11] MEDS: HEPARIN SODIUM/DEXTROSE 25,000 UNITS/500 ML BAG IV SCH (18:40)
[2019-02-11] MEDS: ROSUVASTATIN CALCIUM 20 MG TAB PO SCH (20:23)
[2019-02-11] MEDS: DOXAZosin MESYLATE 4 MG TAB PO SCH (20:23)
[2019-02-11] MEDS: MONTELUKAST SODIUM 10 MG TABLET PO SCH (20:23)
[2019-02-11] MEDS: POSACONAZOLE 300 MG PO SCH (20:24)
[2019-02-12] MEDS: ALBUTEROL 0.083% NEBU SOLN 3 ML VIAL INH SCH ×2 (07:23→19:17)
[2019-02-12] MEDS: FLUTICASONE/SALMETEROL (ADVAIR) 500/50 INH 14 PUFF INH SCH ×2 (08:50→20:16)
[2019-02-12] MEDS: PANTOprazole 40 MG TAB PO SCH ×2 (08:51→20:12)
[2019-02-12] MEDS: ACYCLOVIR 400 MG TAB PO SCH ×2 (08:51→20:13)
[2019-02-12] MEDS: predniSONE 5 MG TAB PO SCH (08:52)
[2019-02-12] MEDS: FUROSEMIDE 40 MG TAB PO SCH (08:52)
[2019-02-12] MEDS: CHOLECALCIFEROL 1,000 UNITS TAB PO SCH (08:53)
[2019-02-12] MEDS: SODIUM BICARBONATE 650 MG TAB PO SCH ×3 (08:53→20:14)
[2019-02-12] MEDS: ASPIRIN 81 MG ECTAB PO SCH (08:53)
[2019-02-12] MEDS: FLUOXETINE HCL 20 MG CAP PO SCH (08:53)
[2019-02-12] MEDS: MYCOPHENOLATE SODIUM 180 MG PO SCH ×2 (08:54→20:17)
[2019-02-12] MEDS: TACROLIMUS 0.5 MG CAP PO SCH ×2 (08:55→20:14)
[2019-02-12] MEDS: INSULIN ASPART 100 UNITS/ML 3 ML PEN SC SCH ×4 (08:59→20:19)
[2019-02-12] MEDS: CLOPIDOGREL BISULFATE 75 MG TAB PO SCH (10:02)
[2019-02-12] MEDS: METOPROLOL SUCC 50MG EXT REL TAB PO SCH (10:02)
[2019-02-12] MEDS: MAGNESIUM CHLORIDE 64MG DELAYED REL TAB PO SCH (10:03)
[2019-02-12 10:06] LABS: Hematocrit (blood only) 29.5 % (42-52); Hemoglobin 9.7 g/dL (14.0-18.0); Mean Corpuscular Hgb Conc 32.9 g/dL (32-36); Mean Corpuscular Volume 107.3 fL (80-100); Mean Platelet Volume 11.3 fL (7.4-10.4); Platelet Count 163 K/uL (130-400); RDW Coefficient of Variation 14.6 % (11.5-14.5); RDW Standard Deviation 56.6 fL (36.4-46.3); Red Blood Count 2.75 M/uL (4.7-6.1); White Blood Count 5.43 K/uL (4.8-10.8)
[2019-02-12 10:20] LABS: Partial Thromboplastin Ratio 1.6; Partial Thromboplastin Time 44.6 Seconds (21.0-31.0); Prothrombin Time 10.6 Seconds (9.0-12.0)
[2019-02-12] MEDS ORDERED: HEPARIN IV BOLUS 3,000 UNITS in SYRINGE 0 ML IV ONE (10:45)
[2019-02-12] MEDS: TOBRAMYCIN SULFATE INH SCH ×2 (11:37→19:48)
--- NOTE | 2019-02-12 14:51 | Hospitalist Progress Note ---
Date of Service February 12, 2019 Assessment & Plan (1) Deep vein thrombosis (DVT) of brachial vein of right upper extremity: Pt presented with c/o RUE edema and erythema x 2 days. US RUE: 1. Patent arteriovenous fistula of the right upper extremity. 2. Occlusive and nonocclusive deep venous thrombi of the brachial veins. Risk factor for right upper extremity DVT: Status post AV fistula to right arm.( Not on dialysis yet. ) Patient started on IV heparin weight-based protocol Was started on low-dose Coumadin 1 mg daily/and gradually increase dose for goal INR of 23 INR remains 1. For last 2 days With no bleeding complication, H&H remained stable We will give extra 3 mg of Coumadin: Total 4 mg p.o. dose today Repeat INR in a.m. Continue to titrate Coumadin dose, with caution to avoid possible bleeding complication with rapid anticoagulant High risk for bleeding: -As patient on dual antiplatelet aspirin and Plavix for recent coronary artery stent placement(09/2018) Prior history of GI bleed Monitor very closely for any evidence of bleeding or blood loss Patient cannot be on NOAC's/or go home with Lovenox bridge therapy secondary to advanced CKD (2) CAD (coronary artery disease): Recent MITCHELL stent to LAD on 09/2018 Continue dual antiplatelet aspirin and Plavix_needs uninterrupted therapy for 12 months On IV heparin for right upper extremity extensive DVT Started on Coumadin: Very high risk for bleeding We will continue to follow H&H very closely Given right upper extremity provoked DVT: AV fistula on right arm Patient possibly will need to just 3 months of anticoagulation (3) Idiopathic pulmonary fibrosis: S/P Left lung transplant in 2012 at [facility]. Follows with Dr Rodriguez at [facility] -Patient is continued with mycophenolate, tacrolimus, Advair, albuterol, inhaled tobramycin(change to IV as [facility] pharmacy does not have inhaled formulation), prednisone, Singulair, Bactrim, acyclovir, posaconazole, azithromycin Mr. London was worried about starting on Coumadin, concern about his drug reaction with his transplant meds Patient is on multiple antirejection meds/prophylactic antibiotics/antifungals : Antifungal posaconazole-does have drug drug interaction with Coumadin, which can lead to elevated INR Will need very close monitoring of PT/INR and Coumadin dosing anticoagulation clinic [facility] lung transplant center contactedper patient's request Spoke with sales and marketing coordinator on #[phone] Plan of care discussed with Dr.Silpa Rodriguez -Lung transplant Physician Okay with the Coumadin, Recommends close monitoring for bleeding complication: Secondary to dual antiplatelet and Coumadin Patient's current records, H&P, imaging, progress notes: Will be faxed to [facility] lung transplant center Fax number #[phone] Attention to: Dr.Sipa Rodriguez (4) Atrial fibrillation: H/O Paroxysmal atrial fibrillation Was not on anticoagulation secondary to hx GI bleed in past Already on dual antiplatelet therapy: Aspirin and Plavix for for drug-eluting coronary artery stent placed on September 2018 Currently rate controlled, asymptomatic -Continue metoprolol - on heparin IV secondary to RUE DVT Started on low-dose Coumadin Watch closely for evidence of bleeding: Counseling provided to patient notifying nursing with any evidence of dark stool (5) GERD (gastroesophageal reflux disease): -Continue PPI BID (6) HTN (hypertension): BP stable -Continue metoprolol, doxazosin (7) Elevated troponin: Chronic elevated troponin Hx CAD s/p MITCHELL to LAD 05/2018, and MITCHELL to LAD 09/2018 Chronically elevated troponin, the setting of advanced CKD No CP, SOB EKG a-fib without acute ST elevations Recent echo 12/2018 showed improved EF of 55% -continue aspirin, plavix, statin, metoprolol (anticoagulation was discussed with cardiology Dr Howard and recommends pt to be continued Plavix, Aspirin since recent stent placement) (8) Diarrhea: Resolved, Chronic intermittent diarrhea. 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 EF was 30% and was wearing lifevest. Repeat echo 12/2018 with EF: 55% and no further use of lifevest Appears euvolemic. No CP, increased LE edema -Continue lasix (11) CKD (chronic kidney disease): CKD IV-V. Has AV fistula. Not on HD yet. Follows with Dr Sterling Cr: 2.78. Baseline ~3 -Monitor renal functions -Avoid nephrotoxic agents when possible (12) Hyperglycemia: H/O hyperglycemic secondary to chronic steroid use A1c: 5.5 on 11/23/18 -Novolog sliding scale per protocol (13) Chronic anemia: H/H: 11.4/33.5. Baseline Hgb ~9-10 -Monitor CBC Hemoglobin 9.7 today, gradual decline in hemoglobin noted since admission 04-30-9 0.7 -Closely monitor for signs of bleeding while on Heparin IV and Coumadin (14) Mood disorder: -Continue fluoxetine DVT Prophylaxis -On IV Heparin/Coumadin Full Code as per discussion with pt Follows with Dr Carlton Lindo for routine care Disposition: Lives at home with , PT OT evaluation requested To discharge home when INR therapeutic Patient will need to follow-up with anticoagulation clinic at [facility] for monitoring of PT/INR/coumadin dosing Coumadin clinic will be updated Plan of care discussed with patient's today, updated Subjective No complaint of chest pain shortness of breath no fever chills, Right arm swelling and pain gradually improving No bleeding complication on Coumadin and IV heparin bridge Physical Exam Constitutional: WD/WN, vitals as above no acute distress Eyes: + eyes dysmorphic (Right eye distorted, smaller size possible secondary to prior trauma) ENMT: external ear and nose normal, oropharynx normal Neck: trachea midline, no thyromegaly Respiratory: normal respiratory effort, lungs clear to auscultation Cardiovascular: RRR, no murmur, no edema Gastrointestinal (Abdomen): normal bowel sounds, soft, nontender, no hepatosplenomegaly Musculoskeletal: Extremities: + upper extremity abnormal to inspection (upper ext swelling and erythema ) Right Neurologic: PERRL, EOMI, accommodation nl, no face palsy, no dysarthria Psychiatric: A+Ox3, euthymic affect Results & Data Vital Signs (Past 12 Hours) Vital Signs Temp Pulse Resp BP BP Pulse Ox 02/12/19 12:12 36.7 C 64 18 126/78 99 02/12/19 08:30 37 C 64 17 160/77 H 99 02/12/19 07:23 60 14 98 02/12/19 03:00 36.8 C 62 18 145/70 H 98 (1) CAD (coronary artery disease) Associated angina: without angina Coronary Disease-Associated Artery/Lesion type: [place] artery [place] vs. transplanted heart: [place] heart Qualified Code(s): I25.10 - Atherosclerotic heart disease of [place] coronary artery without angina pectoris (2) Atrial fibrillation Atrial fibrillation type: paroxysmal Qualified Code(s): I48.0 - Paroxysmal atrial fibrillation (3) Deep vein thrombosis (DVT) of brachial vein of right upper extremity Chronicity: acute Qualified Code(s): I82.621 - Acute embolism and thrombosis of deep veins of right upper extremity (4) GERD (gastroesophageal reflux disease) Esophagitis presence: esophagitis presence not specified Qualified Code(s): K21.9 - Gastro-esophageal reflux disease without esophagitis (5) HTN (hypertension) Hypertension type: unspecified Qualified Code(s): I10 - Essential (primary) hypertension
[2019-02-12] MEDS: WARFARIN SOD 1 MG TAB PO SCH (16:54)
[2019-02-12 17:18] LABS: Partial Thromboplastin Ratio 3.2
[2019-02-12 17:24] LABS: Partial Thromboplastin Time 85.4 Seconds (21.0-31.0)
[2019-02-12] MEDS ORDERED: WARFARIN SOD 3 MG TAB PO ONE (18:00)
[2019-02-12] MEDS: HEPARIN SODIUM/DEXTROSE 25,000 UNITS/500 ML BAG IV SCH ×2 (18:08→18:53)
[2019-02-12] MEDS: MONTELUKAST SODIUM 10 MG TABLET PO SCH (20:15)
[2019-02-12] MEDS: DOXAZosin MESYLATE 4 MG TAB PO SCH (20:15)
[2019-02-12] MEDS: POSACONAZOLE 300 MG PO SCH (20:15)
[2019-02-12] MEDS: ROSUVASTATIN CALCIUM 20 MG TAB PO SCH (20:16)
[2019-02-12] MEDS: ACETAMINOPHEN 325 MG TAB PO PRN (20:22)
[2019-02-13 00:54] LABS: Partial Thromboplastin Ratio 1.8
[2019-02-13 01:04] LABS: Partial Thromboplastin Time 49.8 Seconds (21.0-31.0)
[2019-02-13 06:29] LABS: Hematocrit (blood only) 27.1 % (42-52); Hemoglobin 9.1 g/dL (14.0-18.0)
[2019-02-13 06:48] LABS: INR 1.1 (0.9-1.1); Partial Thromboplastin Ratio 4.3; Prothrombin Time 11.1 Seconds (9.0-12.0)
[2019-02-13 06:52] LABS: Partial Thromboplastin Time 116.7 Seconds (21.0-31.0)
[2019-02-13] MEDS: ALBUTEROL 0.083% NEBU SOLN 3 ML VIAL INH SCH ×2 (06:57→19:15)
[2019-02-13] MEDS: TOBRAMYCIN SULFATE INH SCH ×2 (06:58→19:15)
[2019-02-13] MEDS: PANTOprazole 40 MG TAB PO SCH ×2 (08:09→21:02)
[2019-02-13] MEDS: METOPROLOL SUCC 50MG EXT REL TAB PO SCH (08:09)
[2019-02-13] MEDS: CLOPIDOGREL BISULFATE 75 MG TAB PO SCH (08:09)
[2019-02-13] MEDS: FLUOXETINE HCL 20 MG CAP PO SCH (08:10)
[2019-02-13] MEDS: MAGNESIUM CHLORIDE 64MG DELAYED REL TAB PO SCH (08:10)
[2019-02-13] MEDS: ACYCLOVIR 400 MG TAB PO SCH ×2 (08:10→21:03)
[2019-02-13] MEDS: TACROLIMUS 0.5 MG CAP PO SCH ×2 (08:11→21:02)
[2019-02-13] MEDS: SODIUM BICARBONATE 650 MG TAB PO SCH ×3 (08:11→21:03)
[2019-02-13] MEDS: ASPIRIN 81 MG ECTAB PO SCH (08:11)
[2019-02-13] MEDS: AZITHROMYCIN 250 MG TAB PO SCH (08:11)
[2019-02-13] MEDS: predniSONE 5 MG TAB PO SCH (08:12)
[2019-02-13] MEDS: FUROSEMIDE 40 MG TAB PO SCH (08:13)
[2019-02-13] MEDS: FLUTICASONE/SALMETEROL (ADVAIR) 500/50 INH 14 PUFF INH SCH ×2 (08:13→21:01)
[2019-02-13] MEDS: MYCOPHENOLATE SODIUM 180 MG PO SCH ×2 (08:14→21:07)
[2019-02-13] MEDS: SULFA/TRIMETH 400/80MG TAB PO SCH (08:16)
[2019-02-13] MEDS: CHOLECALCIFEROL 1,000 UNITS TAB PO SCH (08:16)
[2019-02-13] MEDS: INSULIN ASPART 100 UNITS/ML 3 ML PEN SC SCH ×4 (08:27→21:08)
[2019-02-13 14:24] LABS: Partial Thromboplastin Ratio 1.2; Partial Thromboplastin Time 31.3 Seconds (21.0-31.0)
[2019-02-13] MEDS ORDERED: HEPARIN IV BOLUS 4,500 UNITS in SYRINGE 0 ML IV ONE (15:00)
[2019-02-13] MEDS: WARFARIN SOD 1 MG TAB PO SCH (15:56)
[2019-02-13] MEDS ORDERED: WARFARIN SOD 3 MG TAB PO ONE (17:41)
--- NOTE | 2019-02-13 18:02 | Hospitalist Progress Note ---
Date of Service February 13, 2019 Assessment & Plan (1) Deep vein thrombosis (DVT) of brachial vein of right upper extremity: Pt presented with c/o RUE edema and erythema x 2 days. US RUE: 1. Patent arteriovenous fistula of the right upper extremity. 2. Occlusive and nonocclusive deep venous thrombi of the brachial veins. Risk factor for right upper extremity DVT: Status post AV fistula to right arm.( Not on dialysis yet. ) Patient started on IV heparin weight-based protocol Was started on low-dose Coumadin 1 mg daily/and gradually increase dose for goal INR of 23 INR remains subtheraputic With no bleeding complication, H&H remained stable pt given extra 3 mg of Coumadin: Total 4 mg p.o. dose \ Continue to titrate Coumadin dose, with caution to avoid possible bleeding complication with rapid anticoagulant High risk for bleeding: -As patient on dual antiplatelet aspirin and Plavix for recent coronary artery stent placement(09/2018) Prior history of GI bleed Monitor very closely for any evidence of bleeding or blood loss Patient cannot be on NOAC's/or go home with Lovenox bridge therapy secondary to advanced CKD (2) CAD (coronary artery disease): Recent MITCHELL stent to LAD on 09/2018 Continue dual antiplatelet aspirin and Plavix_needs uninterrupted therapy for 12 months On IV heparin for right upper extremity extensive DVT Started on Coumadin: Very high risk for bleeding We will continue to follow H&H very closely Given right upper extremity provoked DVT: AV fistula on right arm Patient possibly will need to just 3 months of anticoagulation (3) Idiopathic pulmonary fibrosis: S/P Left lung transplant in 2012 at [facility]. Follows with Dr Rodriguez at [facility] -Patient is continued with mycophenolate, tacrolimus, Advair, albuterol, inhaled tobramycin(change to IV as [facility] pharmacy does not have inhaled formulation), prednisone, Singulair, Bactrim, acyclovir, posaconazole, azithromycin Mr. London was worried about starting on Coumadin, concern about his drug reaction with his transplant meds Patient is on multiple antirejection meds/prophylactic antibiotics/antifungals : Antifungal posaconazole-does have drug drug interaction with Coumadin, which can lead to elevated INR Will need very close monitoring of PT/INR and Coumadin dosing anticoagulation clinic [facility] lung transplant center contactedper patient's request Spoke with learning center coordinator on #[phone] Plan of care discussed with Dr.Silpa Rodriguez -Lung transplant Physician Okay with the Coumadin, Recommends close monitoring for bleeding complication: Secondary to dual antiplatelet and Coumadin Patient's current records, H&P, imaging, progress notes: Will be faxed to [facility] lung transplant center Fax number #[phone] Attention to: Dr.Sipa Rodriguez (4) Atrial fibrillation: H/O Paroxysmal atrial fibrillation Was not on anticoagulation secondary to hx GI bleed in past Already on dual antiplatelet therapy: Aspirin and Plavix for for drug-eluting coronary artery stent placed on September 2018 Currently rate controlled, asymptomatic -Continue metoprolol - on heparin IV secondary to RUE DVT Started on low-dose Coumadin Watch closely for evidence of bleeding: Counseling provided to patient notifying nursing with any evidence of dark stool (5) GERD (gastroesophageal reflux disease): -Continue PPI BID (6) HTN (hypertension): BP stable -Continue metoprolol, doxazosin (7) Elevated troponin: Chronic elevated troponin Hx CAD s/p MITCHELL to LAD 05/2018, and MITCHELL to LAD 09/2018 Chronically elevated troponin, the setting of advanced CKD No CP, SOB EKG a-fib without acute ST elevations Recent echo 12/2018 showed improved EF of 55% -continue aspirin, plavix, statin, metoprolol (anticoagulation was discussed with cardiology Dr Howard and recommends pt to be continued Plavix, Aspirin since recent stent placement) (8) Diarrhea: Resolved, Chronic intermittent diarrhea. 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 EF was 30% and was wearing lifevest. Repeat echo 12/2018 with EF: 55% and no further use of lifevest Appears euvolemic. No CP, increased LE edema -Continue lasix (11) CKD (chronic kidney disease): CKD IV-V. Has AV fistula. Not on HD yet. Follows with Dr Sterling Cr: 2.78. Baseline ~3 -Monitor renal functions -Avoid nephrotoxic agents when possible (12) Hyperglycemia: H/O hyperglycemic secondary to chronic steroid use A1c: 5.5 on 11/23/18 -Novolog sliding scale per protocol (13) Chronic anemia: H/H: 11.4/33.5. Baseline Hgb ~9-10 -Monitor CBC gradual decline noted in hemoglobin noted since admission 04-30-9.7 -Closely monitor for signs of bleeding while on Heparin IV and Coumadin (14) Mood disorder: -Continue fluoxetine DVT Prophylaxis -On IV Heparin/Coumadin Full Code as per discussion with pt Follows with Dr Carlton Lindo for routine care Disposition: Lives at home with , independent in ADL's To discharge home when INR therapeutic Patient will need to follow-up with anticoagulation clinic at [facility] for monitoring of PT/INR/coumadin dosing Coumadin clinic updated Plan of care discussed with patient's today, updated Subjective has been doing well no bleeding complication noted while on IV heparin bridge and Coumadin therapy rt arm swelling has continued to improve no fever or chills eager to be discharged home Physical Exam Constitutional: WD/WN, vitals as above no acute distress Eyes: + eyes dysmorphic (Right eye distorted, smaller size possible secondary to prior trauma) ENMT: external ear and nose normal, oropharynx normal Neck: trachea midline, no thyromegaly Respiratory: normal respiratory effort, lungs clear to auscultation Cardiovascular: RRR, no murmur, no edema Gastrointestinal (Abdomen): normal bowel sounds, soft, nontender, no hepatosplenomegaly Musculoskeletal: Extremities: + upper extremity abnormal to inspection (upper ext swelling and erythema ) Right Neurologic: PERRL, EOMI, accommodation nl, no face palsy, no dysarthria Psychiatric: A+Ox3, euthymic affect Results & Data Vital Signs (Past 12 Hours) Vital Signs Temp Pulse Pulse Resp BP BP Pulse Ox 02/13/19 15:04 36.5 C 97 H 18 137/80 90 02/13/19 12:00 36.3 C L 64 20 168/77 H 99 02/13/19 07:11 36.8 C 61 18 197/83 H 97 02/13/19 06:59 61 18 97 (1) CAD (coronary artery disease) Associated angina: without angina Coronary Disease-Associated Artery/Lesion type: [place] artery [place] vs. transplanted heart: [place] heart Qualified Code(s): I25.10 - Atherosclerotic heart disease of [place] coronary artery without angina pectoris (2) Atrial fibrillation Atrial fibrillation type: paroxysmal Qualified Code(s): I48.0 - Paroxysmal atrial fibrillation (3) Deep vein thrombosis (DVT) of brachial vein of right upper extremity Chronicity: acute Qualified Code(s): I82.621 - Acute embolism and thrombosis of deep veins of right upper extremity (4) GERD (gastroesophageal reflux disease) Esophagitis presence: esophagitis presence not specified Qualified Code(s): K21.9 - Gastro-esophageal reflux disease without esophagitis (5) HTN (hypertension) Hypertension type: unspecified Qualified Code(s): I10 - Essential (primary) hypertension
[2019-02-13] MEDS: DOXAZosin MESYLATE 4 MG TAB PO SCH (21:01)
[2019-02-13] MEDS: MONTELUKAST SODIUM 10 MG TABLET PO SCH (21:02)
[2019-02-13] MEDS: ROSUVASTATIN CALCIUM 20 MG TAB PO SCH (21:05)
[2019-02-13] MEDS: POSACONAZOLE 300 MG PO SCH (21:10)
[2019-02-13 21:47] LABS: Partial Thromboplastin Ratio 1.9
[2019-02-13 21:48] LABS: Partial Thromboplastin Time 50.4 Seconds (21.0-31.0)
[2019-02-14] MEDS: HEPARIN SODIUM/DEXTROSE 25,000 UNITS/500 ML BAG IV SCH (01:34)
[2019-02-14 05:08] LABS: Hematocrit (blood only) 27.3 % (42-52); Hemoglobin 9.4 g/dL (14.0-18.0)
[2019-02-14 05:30] LABS: Partial Thromboplastin Ratio 1.3; Partial Thromboplastin Time 35.3 Seconds (21.0-31.0)
[2019-02-14] MEDS ORDERED: HEPARIN IV BOLUS 4,500 UNITS in SYRINGE 0 ML IV ONE (06:15)
[2019-02-14] MEDS: ALBUTEROL 0.083% NEBU SOLN 3 ML VIAL INH SCH (07:04)
[2019-02-14] MEDS: TOBRAMYCIN SULFATE INH SCH (07:04)
[2019-02-14] MEDS: INSULIN ASPART 100 UNITS/ML 3 ML PEN SC SCH ×2 (08:33→13:16)
[2019-02-14] MEDS: FLUTICASONE/SALMETEROL (ADVAIR) 500/50 INH 14 PUFF INH SCH (08:34)
[2019-02-14] MEDS: CHOLECALCIFEROL 1,000 UNITS TAB PO SCH (08:35)
[2019-02-14] MEDS: CLOPIDOGREL BISULFATE 75 MG TAB PO SCH (08:35)
[2019-02-14] MEDS: MAGNESIUM CHLORIDE 64MG DELAYED REL TAB PO SCH (08:35)
[2019-02-14] MEDS: PANTOprazole 40 MG TAB PO SCH (08:35)
[2019-02-14] MEDS: ASPIRIN 81 MG ECTAB PO SCH (08:36)
[2019-02-14] MEDS: FLUOXETINE HCL 20 MG CAP PO SCH (08:36)
[2019-02-14] MEDS: ACYCLOVIR 400 MG TAB PO SCH (08:36)
[2019-02-14] MEDS: TACROLIMUS 0.5 MG CAP PO SCH (08:36)
[2019-02-14] MEDS: SODIUM BICARBONATE 650 MG TAB PO SCH ×2 (08:36→13:18)
[2019-02-14] MEDS: predniSONE 5 MG TAB PO SCH (08:36)
[2019-02-14] MEDS: FUROSEMIDE 40 MG TAB PO SCH (08:37)
[2019-02-14] MEDS: MYCOPHENOLATE SODIUM 180 MG PO SCH (08:38)
[2019-02-14] MEDS: METOPROLOL SUCC 50MG EXT REL TAB PO SCH (09:38)
[2019-02-14 11:43] VITALS: BP 150/69; TEMP 97.7; O2SAT 100
[2019-02-14 12:49] LABS: INR 1.2 (0.9-1.1); Prothrombin Time 12.4 Seconds (9.0-12.0)
[2019-02-14 12:53] LABS: Partial Thromboplastin Time 80.8 Seconds (21.0-31.0)
[2019-02-14] MEDS ORDERED: WARFARIN SOD 2.5 MG TAB PO ONE (13:29)
[2019-02-14 15:38] VITALS: PULSE 97
--- NOTE | 2019-02-14 18:14 | Discharge Summary ---
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 Pt states 2 days ago started with right arm pain from elbow to forearm. Today with noted edema and redness of right forearm and pain to entire arm with any type of movement. Pt denies any injury or trauma. H/O AV fistula to right arm (not in use as not on dialysis). Denies paresthesias. Pt on Plavix and aspirin with h/o NSTEMI with stent to LAD on 10/04/18. Pt with recent hospitalization 10/2018 for CHF and reports since has not had any increased LE edema and denies SOB. Pt reports chronic nausea. Reports always has nausea in mornings and some days improves throughout the day and sometimes has continuous nausea. Pt reports he often takes his morning medicines late in day secondary to nausea and admits that he also often does not take morning medication doses. States that did not take his medications for past 2 days. He reports his nausea feels like his baseline and doesn't feel that it is worse. He also reports chronic poor appetite. Denies any vomiting. Pt reports chronic watery diarrhea and some days has several episodes daily. Denies melena, hematochezia, hematuria, epistaxis. Denies any cough recently. Feels breathing is at his baseline. Denies fever/chills, diaphoresis, HARRIS, dizziness, syncope, vision changes, neck pain, CP, SOB, palpitations, hemoptysis, sore throat, choking, otalgia, rhinorrhea, abdominal pain, rashes, urinary symptoms. Principal Diagnosis RIGHT UPPER EXT DVT /HX OF LUNG TRANSPLANT /CHRONIC KIDNEY DISEASE /CORONARY ARTERY DISEASE WITH STENT PLACEMENT Discharge Data Allergies Allergy/AdvReac Type Severity Reaction Status Date / Time levofloxacin Allergy Intermediate ANAPHYLAXIS Verified 02/08/19 11:10 oxycodone Allergy Intermediate ANAPHYLAXIS Verified 02/08/19 11:10 cat dander Allergy Unknown CHEST Verified 02/08/19 11:10 TIGHTNESS Consultations 02/08/19 14:44 ED Decision to Admit Stat 02/08/19 17:21 Consult Case Management - Discharge Planning Routine Ordered Studies 02/08/19 10:43 US hemodialysis access Stat Hospital Course (1) Deep vein thrombosis (DVT) of brachial vein of right upper extremity: Pt presented with c/o RUE edema and erythema x 2 days. US RUE: 1. Patent arteriovenous fistula of the right upper extremity. 2. Occlusive and nonocclusive deep venous thrombi of the brachial veins. Risk factor for right upper extremity DVT: Status post AV fistula to right arm.( Not on dialysis yet. ) Patient started on IV heparin weight-based protocol Was started on low-dose Coumadin 1 mg daily/and gradually increase dose for goal INR of 23 INR remains subtheraputic With no bleeding complication, H&H remained stable pt given extra 3 mg of Coumadin: Total 4 mg p.o. dose \ Continue to titrate Coumadin dose, with caution to avoid possible bleeding complication with rapid anticoagulant High risk for bleeding: -As patient on dual antiplatelet aspirin and Plavix for recent coronary artery stent placement(09/2018) Prior history of GI bleed Monitor very closely for any evidence of bleeding or blood loss Patient cannot be on NOAC's/or go home with Lovenox bridge therapy secondary to advanced CKD Discussed with the [facility] coagulation clinic, patient's INR 1.2 today Given right upper extremity DVT, low risk for thromboembolism Patient has been on therapeutic PTT with IV heparin for last 6 days, Safe to discharge home with p.o. Coumadin, Patient will be discharged with Coumadin 2.5 mg daily Coumadin clinic at [facility], to repeat lab in next 1-2 days and adjust Coumadin dose as indicated She is stable to be discharged home today (2) CAD (coronary artery disease): Recent MITCHELL stent to LAD on 09/2018 Continue dual antiplatelet aspirin and Plavix_needs uninterrupted therapy for 12 months On IV heparin for right upper extremity extensive DVT Started on Coumadin: Very high risk for bleeding H&H has been stable Patient is discharged home today with oral Coumadin only, continue aspirin and Plavix Will be followed very closely by [facility] anticoagulation clinic at [facility] Given right upper extremity provoked DVT: AV fistula on right arm Patient possibly will need to just 3 months of anticoagulation (3) Idiopathic pulmonary fibrosis: S/P Left lung transplant in [address] [facility]. Follows with Dr Rodriguez at [facility] -Patient is continued with mycophenolate, tacrolimus, Advair, albuterol, inhaled tobramycin(change to IV as [facility] pharmacy does not have inhaled formulation), prednisone, Singulair, Bactrim, acyclovir, posaconazole, azithromycin Mr. London was worried about starting on Coumadin, concern about his drug reaction with his transplant meds Patient is on multiple antirejection meds/prophylactic antibiotics/antifungals : Antifungal posaconazole-does have drug drug interaction with Coumadin, which can lead to elevated INR Will need very close monitoring of PT/INR and Coumadin dosing anticoagulation clinic [facility] lung transplant center contactedper patient's request Spoke with pharmacy intake coordinator on #[phone] Plan of care discussed with Dr.Silpa Rodriguez -Lung transplant Physician Okay with the Coumadin, Recommends close monitoring for bleeding complication: Secondary to dual antiplatelet and Coumadin Patient's current records, H&P, imaging, progress notes: Will be faxed to [facility] lung transplant center Fax number #[phone] Attention to: Dr.Sipa Rodriguez (4) Atrial fibrillation: H/O Paroxysmal atrial fibrillation Was not on anticoagulation secondary to hx GI bleed in past Already on dual antiplatelet therapy: Aspirin and Plavix for for drug-eluting coronary artery stent placed on September 2018 Currently rate controlled, asymptomatic -Continue metoprolol -Was treated with IV heparin, for right upper extremity DVT We will discontinue IV heparin Patient discharged on low-dose of Coumadin Close follow-up for PT/INR, and repeat CBC as an outpatient to assess for stability of hemoglobin, and anticoagulation monitoring (5) GERD (gastroesophageal reflux disease): -Continue PPI BID No evidence of GI bleed during hospital admission (6) HTN (hypertension): BP stable -Continue metoprolol, doxazosin (7) Elevated troponin: Chronic elevated troponin Hx CAD s/p MITCHELL to LAD 05/2018, and MITCHELL to LAD 09/2018 Chronically elevated troponin, the setting of advanced CKD No CP, SOB EKG a-fib without acute ST elevations Recent echo 12/2018 showed improved EF of 55% -continue aspirin, plavix, statin, metoprolol (anticoagulation was discussed with cardiology Dr Howard and recommends pt to be continued Plavix, Aspirin since recent stent placement) (8) Diarrhea: Resolved, Chronic intermittent diarrhea. 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 difficile toxin assay negative (9) Hypomagnesemia: Elected (10) Ischemic cardiomyopathy: H/O ischemic cardiomyopathy after MN 09/2018. EF was 30% and was wearing lifevest. Repeat echo 12/2018 with EF: 55% and no further use of lifevest Appears euvolemic. No CP, increased LE edema -Continue lasix (11) CKD (chronic kidney disease): CKD IV-V. Has AV fistula. Not on HD yet. Follows with Dr Sterling Cr: 2.78. Baseline ~3 Creatinine at approximate baseline Not a candidate for Lovenox bridge, or no active secondary to advanced CKD -Avoid nephrotoxic agents when possible (12) Hyperglycemia: H/O hyperglycemic secondary to chronic steroid use A1c: 5.5 on 11/23/18 -Novolog sliding scale per protocol (13) Chronic anemia: H/H: 11.4/33.5. Baseline Hgb ~9-10 - gradual decline noted in hemoglobin noted since admission 11-10-9.7 -No evidence of bleeding noted while on IV heparin and Coumadin Discharged on low-dose p.o. Coumadin only, Repeat CBC on 02/17/2019 with hospital follow-up clinic visit (14) Mood disorder: -Continue fluoxetine DVT Prophylaxis -On IV Heparin/Coumadin Full Code as per discussion with pt Follows with Dr Carlton Cline for routine care Disposition: Lives at home with , independent in ADL's Crowe is discharged home today anticoagulation clinic at [facility] updated for monitoring of PT/INR/coumadin dosing Total Time Total Time Spent Total Time Spent (In Minutes): Approximately 45 minutes Total Time Includes: Examination of the Patient, Discharge Planning, Medication Reconciliation and Communication With Other Providers Discharge Plan Discharge Items Patient Disposition: Home - Self-Care Reason For Visit: RUE DVT Discharge Diagnosis: RIGHT UPPER EXT DVT /HX OF LUNG TRANSPLANT /CHRONIC KIDNEY DISEASE /CORONARY ARTERY DISEASE WITH STENT PLACEMENT Discharge Goals: Decrease discomfort, Diagnostic testing and Therapeutic intervention Activity: Resume your previous activity Non-emergency contact: Primary Care Provider Call non-emergency contact if: you have any medication questions Follow-up/Referrals: Carlton Cline DO [Primary Care Provider] - 02/17/19 11:10 am Diet: Heart Healthy Other Ambulatory Orders: Complete Blood Count no Diff (Routine) Timeframe: [id number] Location: Determined by Patient Ordered By: Vee Urbina Provider Instructions: HOSPITAL FOLLOW UP WITH DR CLINE ON Wednesday02/17/2019 @ 11:10 am anticoagulation /coumadin clinic follow up IN 2 DAYS , CLINIC WILL CALL WITH APPOINTMENT TIME Prescriptions: New warfarin [Coumadin] 2.5 mg tablet 2.5 mg PO DAILY Qty: 30 RF: 0 Continued insulin lispro [Humalog KwikPen Insulin] 100 unit/mL insulin pen See Patient Comments SQ TID PRN (Reason: .) RF: 0 Slow-Mag 71.5 mg tablet,delayed release (DR/EC) 143 mg PO QAM RF: 0 posaconazole 100 mg tablet,delayed release (DR/EC) 300 mg PO DAILY RF: 0 prednisone 5 mg tablet 5 mg PO QAM RF: 0 azithromycin 250 mg tablet 250 mg PO 3XWK RF: 0 acyclovir 400 mg Tablet 400 mg PO BID RF: 0 aspirin 81 mg Tablet,Delayed Release (Dr/Ec) 81 mg PO QAM RF: 0 cholecalciferol (vitamin D3) 1,000 unit Capsule 1,000 unit PO QAM RF: 0 albuterol sulfate 2.5 mg/0.5 mL Solution For Nebulization 2.5 mg INHALATION BID RF: 0 furosemide [Lasix] 40 mg Tablet 40 mg PO QAM RF: 0 acetaminophen [Tylenol Extra Strength] 500 mg Tablet 500 mg PO Q6H PRN (Reason: Pain) RF: 0 fluticasone propion-salmeterol [Advair Diskus] 500-50 mcg/dose Blister With Device 1 inh INHALATION Q12H RF: 0 doxazosin 4 mg Tablet 8 mg PO PM RF: 0 montelukast [Singulair] 10 mg Tablet 10 mg PO HS RF: 0 tacrolimus [Prograf] 0.5 mg Capsule 0.5 mg PO BID RF: 0 rosuvastatin [Crestor] 40 mg Tablet 40 mg PO HS RF: 0 mycophenolate sodium [Myfortic] 180 mg Tablet,Delayed Release (Dr/Ec) 180 mg PO BID RF: 0 omega-3 acid ethyl esters [Lovaza] 1 gram Capsule 2 cap PO BID RF: 0 fluoxetine 40 mg Capsule 40 mg PO QAM RF: 0 ondansetron HCl [Zofran] 4 mg Tablet 4 mg PO Q8H RF: 0 metoprolol succinate [Toprol XL] 100 mg Tablet Extended Release 24 Hr 100 mg PO DAILY RF: 0 pantoprazole 40 mg Tablet,Delayed Release (Dr/Ec) 40 mg PO BID RF: 0 cyclobenzaprine 5 mg Tablet 5 mg PO TID PRN (Reason: Muscle Spasm) RF: 0 darbepoetin nicholas in polysorbat 40 mcg/0.4 mL Syringe 40 mcg subcut WK RF: 0 sodium bicarbonate 650 mg Tablet 1,300 mg PO TID RF: 0 clopidogrel 75 mg Tablet 75 mg PO QAM RF: 0 sulfamethoxazole-trimethoprim 400-80 mg Tablet 1 tab PO 2XWK RF: 0 tobramycin with nebulizer 300 mg/5 mL Solution For Nebulization 150 mg INHALATION Q12H RF: 0 Stand-Alone Forms: [facility]/Other Patient Handouts: Anticoagulants, Coumadin Discharge Orders: Discharge Order (Routine); Ordered 02/14/19 Ordered By: Vee Hui Admission Data Admit Date/Time: 02/08/19 16:35 Attending Provider: Vee Hui Admit Provider: Dex Beth Primary Care Provider: Carlton Cline Other Providers: Dex Beth Service: Telemetry Medical Other Interventions: Discharge Summary Assessment (RN) Last Done: 02/14/19 15:37 DC Date/Time DO NOT enter until pt leaves facility: 02/14/19 15:55
== END 2019-02-14 15:55 | disposition home or self-care (01) | DRG 300 ==
LOC: ED 10:26 → 2N 16:35
DX: N18.4 Chronic kidney disease, stage 4 (severe); J84.112 Idiopathic pulmonary fibrosis; K52.9 Noninfective gastroenteritis and colitis, unspecified; I25.10 Atherosclerotic heart disease of native coronary artery without angina pectoris; T38.0X5A Adverse effect of glucocorticoids and synthetic analogues, initial encounter; F39 Unspecified mood [affective] disorder; E83.42 Hypomagnesemia; I48.0 Paroxysmal atrial fibrillation; Z95.5 Presence of coronary angioplasty implant and graft; K21.9 Gastro-esophageal reflux disease without esophagitis; Z79.02 Long term (current) use of antithrombotics/antiplatelets; R73.9 Hyperglycemia, unspecified; Z79.52 Long term (current) use of systemic steroids; Z94.2 Lung transplant status; I25.5 Ischemic cardiomyopathy; Z79.4 Long term (current) use of insulin; I12.9 Hypertensive chronic kidney disease with stage 1 through stage 4 chronic kidney disease, or unspecified chronic kidney disease; Z79.899 Other long term (current) drug therapy; I82.621 Acute embolism and thrombosis of deep veins of right upper extremity; Z79.82 Long term (current) use of aspirin

== ENCOUNTER 2019-09-27 12:39 | Inpatient (IN) ==
--- NOTE | 2019-09-27 12:59 | Emergency Department Note ---
History of Present Illness General Chief complaint: Chest Pain Time Seen by Provider: 09/27/19 12:44 Source: patient and EMS Mode of arrival: EMS Limitations: no limitations History of Present Illness Maximum Pain Intensity: 2 This patient comes in by EMS. He does have a history of significant lung disease with a lung transplant, has shortness of breath and chest pain which started today. He has been in his house isolated for the last month and has had no travel or outside exposure, therefore Covid is highly unlikely. He has had a cough but no fever or chills. No GI symptoms. Upon arrival in the ambulance they put oxygen on him and now he feels better. He has no acute lower extremity edema. No fall or trauma. No blood or black colors in his stool Home Medications Home Medications Medication Instructions Recorded Confirmed Type albuterol sulfate 2.5 mg CONTINUOUS NEBULIZATION BID 03/02/19 09/27/19 History ml clopidogrel 75 mg tablet 75 mg PO DAILY #30 tab 03/02/19 09/27/19 History doxazosin 4 mg tablet 8 mg PO HS tab 03/02/19 09/27/19 History fluoxetine 20 mg capsule 40 mg PO DAILY cap 03/02/19 09/27/19 History fluticasone 500 mcg-salmeterol 50 1 puffs INH Q12H 03/02/19 09/27/19 History mcg/dose blistr powdr for inhalation furosemide 40 mg tablet 40 mg PO DAILY #30 tab 03/02/19 09/27/19 History insulin lispro 100 unit/mL 0 - 140 sliding scale dose SUBCUT 03/02/19 09/27/19 History subcutaneous solution TID PRN ml magnesium chloride 71.5 mg 143 mg PO DAILY tab 03/02/19 09/27/19 History (magnesium chloride) tablet,delayed release montelukast 10 mg tablet 10 mg PO DAILY tab 03/02/19 09/27/19 History mycophenolate sodium 180 mg 180 mg PO BID tab 03/02/19 09/27/19 History tablet,delayed release pantoprazole 40 mg tablet,delayed 40 mg PO BID tab 03/02/19 09/27/19 History release rosuvastatin 40 mg tablet 40 mg PO HS #90 tab 03/02/19 09/27/19 History tacrolimus 0.5 mg capsule 0.5 mg PO BID cap 03/02/19 09/27/19 History acetaminophen [Tylenol Extra 500 mg PO Q6H PRN 04/21/19 09/27/19 History Strength] aspirin [Aspir-81] 81 mg PO DAILY 04/21/19 09/27/19 History azithromycin [Zithromax] 250 mg PO MOWEFR 04/21/19 09/27/19 History metoprolol succinate [Toprol XL] 100 mg PO DAILY 04/21/19 09/27/19 History omega-3 acid ethyl esters [Lovaza] 2 cap PO BID 04/21/19 09/27/19 History posaconazole [Noxafil] 300 mg PO DAILY 04/21/19 09/27/19 History prednisone 5 mg PO DAILY 04/21/19 09/27/19 History tobramycin 150 mg INHALATION Q12H 04/21/19 09/27/19 History cyclobenzaprine 5 mg tablet 5 mg PO TID PRN 07/04/19 09/27/19 History sodium bicarbonate 650 mg tablet 1,300 mg PO TID #60 tab 07/04/19 09/27/19 History acyclovir 400 mg PO BID 09/27/19 09/27/19 History darbepoetin nicholas in polysorbat 60 mcg SUBCUT MO 09/27/19 09/27/19 History [Aranesp (in polysorbate)] sulfamethoxazole-trimethoprim 1 tab PO MOTH 09/27/19 09/27/19 History [Bactrim] Allergies Allergy/AdvReac Type Severity Reaction Status Date / Time levofloxacin Allergy Intermediate ANAPHYLAXIS Verified 09/27/19 14:18 oxycodone Allergy Intermediate ANAPHYLAXIS Verified 09/27/19 14:18 cat dander Allergy Unknown CHEST Verified 09/27/19 14:18 TIGHTNESS Past Med/Surg History Medical History Arthritis (Chronic) Chronic a-fib (Chronic) Chronic anemia (Chronic) Chronic diarrhea PT HAS BEEN SEEN AND EVALUATED BY GI FOR C-DIFF (NEGATIVE). 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 Mother , age 88 of CHF No problems noted. Daughter Age: 46 No problems noted. Son Age: 45 No problems noted. Other No significant family history Social History Preferred Language: [place] Communication Ability: Effective [employer] Required: No Beliefs That Will Affect Care: None marital status: Current Living Situation: Spouse current occupational status: retired Other Information That Helps Us Care for You: No Feels Safe at Home: Yes Safety Concerns: Feels Safe At This Time Smoking Status: Former smoker Tobacco Type: cigarettes ; Cigarettes Per Day: HX OF BRIEF SOCIAL USE WHILE IN , QUIT 45 YEARS AGO ; Second Hand Exposure: No ; Hx Alcohol Use: Yes (few drinks a week) Alcohol type: hard liquor Hx Substance Use: No caffeine: Yes (1 cup in am) Review of Systems A total of 10 systems reviewed and were otherwise negative Physical Exam Vital Signs Vital Signs - 24 hr 09/27/19 12:45 09/27/19 12:50 09/27/19 12:53 Temperature 36.7 C Temperature Source Oral Pulse Rate 55 L 53 L Pulse Rate from SpO2 Sensor 55 L 53 L Respiratory Rate 23 27 H Respiratory Effort / Characteristics Non-Labored Respiratory Depth Normal Respiratory Pattern Regular Blood Pressure 182/88 H Blood Pressure Mean 118 Blood Pressure Position Lying Pulse Oximetry 94 94 94 Oxygen Delivery Method Nasal Cannula Nasal Cannula Oxygen Flow Rate 3 3 Sepsis Recent Fever Within 48 Hours No Sepsis Action Taken by Nursing No Action Required 09/27/19 13:00 09/27/19 13:01 09/27/19 13:30 Temperature Temperature Source Pulse Rate 53 L 53 L 54 L Pulse Rate from SpO2 Sensor 54 L 53 L 54 L Respiratory Rate 28 H 28 H 30 H Respiratory Effort / Characteristics Respiratory Depth Respiratory Pattern Blood Pressure 186/82 H 180/82 H Blood Pressure Mean 134 119 Blood Pressure Position Pulse Oximetry 96 96 92 Oxygen Delivery Method Oxygen Flow Rate Sepsis Recent Fever Within 48 Hours Sepsis Action Taken by Nursing 09/27/19 13:31 09/27/19 14:00 09/27/19 14:01 Temperature Temperature Source Pulse Rate 54 L 54 L 53 L Pulse Rate from SpO2 Sensor 54 L 54 L 54 L Respiratory Rate 23 36 H 29 H Respiratory Effort / Characteristics Respiratory Depth Respiratory Pattern Blood Pressure 192/99 H Blood Pressure Mean 139 Blood Pressure Position Pulse Oximetry 92 95 95 Oxygen Delivery Method Oxygen Flow Rate Sepsis Recent Fever Within 48 Hours Sepsis Action Taken by Nursing 09/27/19 14:42 09/27/19 15:00 09/27/19 15:01 Temperature Temperature Source Pulse Rate 61 54 L 64 Pulse Rate from SpO2 Sensor 55 L 53 L 53 L Respiratory Rate 23 23 Respiratory Effort / Characteristics Respiratory Depth Respiratory Pattern Blood Pressure 202/89 H Blood Pressure Mean 150 Blood Pressure Position Pulse Oximetry 93 98 98 Oxygen Delivery Method Oxygen Flow Rate Sepsis Recent Fever Within 48 Hours Sepsis Action Taken by Nursing 09/27/19 15:02 Temperature Temperature Source Pulse Rate 54 L Pulse Rate from SpO2 Sensor 54 L Respiratory Rate 19 Respiratory Effort / Characteristics Respiratory Depth Respiratory Pattern Blood Pressure Blood Pressure Mean Blood Pressure Position Pulse Oximetry 99 Oxygen Delivery Method Oxygen Flow Rate Sepsis Recent Fever Within 48 Hours Sepsis Action Taken by Nursing General: Well developed well nourished chronically ill appearing in no acute distress, breathing comfortably on room air. Normal speech HEENT: Normal cephalic atraumatic. Pupils are equal round and reactive to light. Extraocular movements are intact. Oropharynx is pink with moist mucous membranes. No swelling of the mouth lips or tongue. Neck: Supple with a midline trachea. No meningeal signs or stiffness, no JVD or bruits. No Stridor. Chest: Rhonbchi to auscultation bilaterally. No increased work of breathing. Heart: Regular rate and rhythm without murmurs or gallops. Abdomen: Soft nontender, nondistended without rebound guarding or rigidity. Extremities: No cyanosis clubbing or edema. No calf tenderness or assymetry Spine/Back. Non tender to palpation. No CVA tenderness Skin: Good turgor without rashes. Neurologic exam: Cranial nerves two through 12 are intact. Motor and sensation are intact and symmetrical throughout. Course Administered Medications Discontinued Medications Magnesium Sulfate/Dextrose (Magnesium Sulfate / D5w) 1 gm in 100 mls @ 100 mls/hr IV ONE ONE Stop: 09/27/19 15:17 Last Infusion: 09/27/19 16:00 Dose: 0 mls/hr Documented by: [id number] Admin: 09/27/19 14:46 Dose: 100 mls/hr Documented by: [id number] Impression & Plan Chest pain, Lung transplant status, CKD (chronic kidney disease) stage 5, GFR less than 15 ml/min, Hypomagnesemia, SOB (shortness of breath), CHF (congestive heart failure), Elevated troponin I level Discharge Plan Visit Data *Final* Discharge Date/Time: 09/27/19 16:22 Chief Complaint: Chest Pain ED Provider: Rodo Jain Discharge Problem: Chest pain, Lung transplant status, CKD (chronic kidney disease) stage 5, GFR less than 15 ml/min, Hypomagnesemia, SOB (shortness of breath), CHF (congestive heart failure), Elevated troponin I level Patient Disposition: Admitted As Inpatient Discharge Instructions Interventions: ED Discharge Assessment Last Done: 09/27/19 16:22 Medical Decision Making Differential Diagnosis Includes but is not limited to: CHF, pneumonia, sepsis, coronavirus, cardiac disease, electrolyte or metabolic abnormality, arrhythmia Medical Records Attestation: I reviewed the patient's medical records. Home Medications Current Medication List: was personally reviewed by me Laboratory Data Attestation: I reviewed the patient's lab results. Result diagrams: 09/27/19 12:55 09/27/19 12:55 Lab Results 09/27/19 09/27/19 09/27/19 Range/Units 12:55 12:55 12:55 WBC 8.80 (4.8-10.8) K/uL RBC 2.76 L (4.7-6.1) M/uL Hgb 10.0 L (14.0-18.0) g/dL Hct 30.8 L (42-52) % MCV 111.6 H (80-100) fL MCH 36.2 H (25-34) pg MCHC 32.5 (32-36) g/dL RDW Std Deviation 59.2 H (36.4-46.3) fL RDW Coeff of Ros 14.8 H (11.5-14.5) % Plt Count 173 (130-400) K/uL MPV 12.1 H (7.4-10.4) fL Immature Gran % (Auto) 0.2 % Neut % (Auto) 77.3 % Lymph % (Auto) 7.2 % [place] % (Auto) 11.6 % Eos % (Auto) 3.4 % Baso % (Auto) 0.3 % Immature Gran # (Auto) 0.02 (0.00-0.02) K/uL Neut # (Auto) 6.80 H (1.4-6.5) K/uL Lymph # (Auto) 0.63 L (1.2-3.4) K/uL [place] # (Auto) 1.02 H (0.11-0.59) K/uL Eos # (Auto) 0.30 (0-0.5) K/uL Baso # (Auto) 0.03 (0-0.2) K/uL Macrocytosis Present PT 11.3 (9.0-12.0) Seconds INR 1.1 (0.9-1.1) APTT 25.6 (21.0-31.0) Seconds PTT Ratio 0.9 Sodium 141 (136-145) mmol/L Potassium 4.1 (3.5-5.1) mmol/L Chloride 109 H (98-107) mmol/L Carbon Dioxide 24 (21-32) mmol/L Anion Gap 8.0 (3-11) BUN 40 H (7-18) mg/dl Creatinine 4.08 H (0.6-1.4) mg/dl Est Cr Clr Drug Dosing 17.1 ml/min Est GFR ( Amer) 15.3 Est GFR (Non-Af Amer) 13.2 BUN/Creatinine Ratio 9.8 L (10-20) Glucose 123 H (70-99) mg/dl Lactate (0.4-2.0) mmol/L Calcium 9.3 (8.5-10.1) mg/dl Magnesium 1.5 L (1.8-2.4) mg/dl Total Bilirubin 0.5 (0.2-1) mg/dl AST 10 L (15-37) U/L ALT 14 (12-78) U/L Alkaline Phosphatase 76 (45-117) U/L Troponin I (0-0.045) ng/ml NT-Pro-B Natriuret Pep (0-1800) pg/ml Total Protein 6.4 (6.4-8.2) gm/dl Albumin 3.1 L (3.4-5.0) gm/dl Globulin 3.3 (2.5-4.0) gm/dl Albumin/Globulin Ratio 0.9 (0.9-2) Procalcitonin (0-0.5) ng/ml 09/27/19 09/27/19 09/27/19 Range/Units 12:55 13:22 15:04 WBC (4.8-10.8) K/uL RBC (4.7-6.1) M/uL Hgb (14.0-18.0) g/dL Hct (42-52) % MCV (80-100) fL MCH (25-34) pg MCHC (32-36) g/dL RDW Std Deviation (36.4-46.3) fL RDW Coeff of Ros (11.5-14.5) % Plt Count (130-400) K/uL MPV (7.4-10.4) fL Immature Gran % (Auto) % Neut % (Auto) % Lymph % (Auto) % [place] % (Auto) % Eos % (Auto) % Baso % (Auto) % Immature Gran # (Auto) (0.00-0.02) K/uL Neut # (Auto) (1.4-6.5) K/uL Lymph # (Auto) (1.2-3.4) K/uL [place] # (Auto) (0.11-0.59) K/uL Eos # (Auto) (0-0.5) K/uL Baso # (Auto) (0-0.2) K/uL Macrocytosis PT (9.0-12.0) Seconds INR (0.9-1.1) APTT (21.0-31.0) Seconds PTT Ratio Sodium (136-145) mmol/L Potassium (3.5-5.1) mmol/L Chloride (98-107) mmol/L Carbon Dioxide (21-32) mmol/L Anion Gap (3-11) BUN (7-18) mg/dl Creatinine (0.6-1.4) mg/dl Est Cr Clr Drug Dosing ml/min Est GFR ( Amer) Est GFR (Non-Af Amer) BUN/Creatinine Ratio (10-20) Glucose (70-99) mg/dl Lactate 1.9 (0.4-2.0) mmol/L Calcium (8.5-10.1) mg/dl Magnesium (1.8-2.4) mg/dl Total Bilirubin (0.2-1) mg/dl AST (15-37) U/L ALT (12-78) U/L Alkaline Phosphatase (45-117) U/L Troponin I 0.070 H* (0-0.045) ng/ml NT-Pro-B Natriuret Pep > 34591 H (0-1800) pg/ml Total Protein (6.4-8.2) gm/dl Albumin (3.4-5.0) gm/dl Globulin (2.5-4.0) gm/dl Albumin/Globulin Ratio (0.9-2) Procalcitonin 2.56 H (0-0.5) ng/ml Imaging Data Radiologist's Impression: Chest x-ray: Emphysematous changes, chronic interstitial lung disease, cannot rule out infiltrate in the base. Please refer to radiology report ECG Data Attestation: I personally reviewed and interpreted this ECG as follows: Indication: + chest pain Rate (beats per minute): 53 Rhythm: + sinus bradycardia ECG Intervals/blocks: + First degree AV block and + Normal QT ECG [place]: + Left axis deviation ECG ST segments: + T-wave inversions (nonspecidic ant/lat) ECG Findings: no Q waves and no PACs Comparison ECG Date: from (02/09/19) Change: the following changes noted (QRS increased) Blood Pressure Blood Pressure Findings: Elevated blood pressure Blood Pressure Disposition: elevated BP felt to be situational MDM Narrative This patient comes in as described above. He was placed in room C10. He was brought in after having chest pain shortness of breath. The this seems to have resolved after being placed on supplemental oxygen. He does have very complex medical history with a lung transplant he has had a cough. He is afebrile here and on the hypertensive side. IV access was established and blood work was obtained. chest x-ray, EKG, and multiple blood testing was obtained. He was reassessed frequently. EKG shows no acute STEMI. He does have some nonspecific T wave abnormalities. Chest x-ray shows emphysematous changes. There is some chronic interstitial lung disease. Infiltrate cannot be ruled out. He has no fever. His initial troponin was only mildly elevated at 0.07 which is about his baseline he tends to run mildly elevated and this is actually lower. His BNP was significantly elevated however and I do think he has a congestive heart failure/fluid overload component. There is no acute electrolyte or metabolic abnormalities with exception of renal insufficiency/failure and hypomagnesemia. His creatinine is 4. Is normally in the mid threes. With his magnesium 1.5, I did give him 1 g IV. His symptoms could be from fluid component or potentially infectious component or related to his underlying lung disease or rejection. I do think he needs to be admitted/observe for further treatment and evaluation. Continous cardiac monitoring- due to shortness of breath and chest pain, he was placed on a continuous laboratory monitor with a rate of 52. Discharge Problem: Chest pain Qualifiers: Chest pain type: precordial pain Qualified Code(s): R07.2 - Precordial pain CHF (congestive heart failure) Qualifiers: Heart failure type: unspecified Heart failure chronicity: unspecified Qualified Code(s): I50.9 - Heart failure, unspecified
--- NOTE | 2019-09-27 13:07 | XRay Report ---
XR chest 1V portable CLINICAL HISTORY: SEPSIS COMPARISON STUDY: 02/08/2019 FINDINGS: The heart remains enlarged. There is right lung volume loss. There is pulmonary emphysema. There are chronic right lower lung zone airspace opacities. There is chronic blunting of the right la teral costophrenic angle. There is slight elevation of the left lung interstitium. Diagnostic conside rations include mild congestive failure versus an interstitial inflammatory process.[ IMPRESSION: 1. Cardiomegaly 2. Bullous emphysema 3. Chronic interstitial right lung disease 4. Slight elevation of the left lung interstitium. Diagnostic considerations include mild congestive failure versus an interstitial inflammatory process ACT 112: Negative or not required by law. Electronically signed by: Bon Ariza M.D. 09/27/2019 1:06 PM
[2019-09-27 13:14] LABS: Basophils # (auto) 0.03 K/uL (0-0.2); Basophils % (auto) 0.3 %; Eosinophils % (auto) 3.4 %; Hematocrit (blood only) 30.8 % (42-52); Immature Granulocytes # (auto) 0.02 K/uL (0.00-0.02); Immature Granulocytes % (auto) 0.2 %; Lymphocytes # (auto) 0.63 K/uL (1.2-3.4); Lymphocytes % (auto) 7.2 %; Mean Corpuscular Hemoglobin 36.2 pg (25-34); Mean Corpuscular Hgb Conc 32.5 g/dL (32-36); Mean Corpuscular Volume 111.6 fL (80-100); Mean Platelet Volume 12.1 fL (7.4-10.4); Monocytes # (auto) 1.02 K/uL (0.11-0.59); Monocytes % (auto) 11.6 %; Neutrophils % (auto) 77.3 %; Platelet Count 173 K/uL (130-400); RDW Coefficient of Variation 14.8 % (11.5-14.5); RDW Standard Deviation 59.2 fL (36.4-46.3); Red Blood Count 2.76 M/uL (4.7-6.1)
[2019-09-27 13:20] LABS: INR 1.1 (0.9-1.1); Partial Thromboplastin Ratio 0.9; Partial Thromboplastin Time 25.6 Seconds (21.0-31.0); Prothrombin Time 11.3 Seconds (9.0-12.0)
[2019-09-27 13:23] LABS: Albumin Level 3.1 gm/dl (3.4-5.0); BUN Creatinine Ratio 9.8 (10-20); Calcium 9.3 mg/dl (8.5-10.1); Creatinine Clr Calc Pharmacy 17.1 ml/min; Est GFR (African American) 15.3; Est GFR (Non-African American) 13.2; Magnesium 1.5 mg/dl (1.8-2.4); Potassium 4.1 mmol/L (3.5-5.1)
[2019-09-27 13:25] LABS: Albumin Globulin Ratio 0.9 (0.9-2); Bilirubin,Total 0.5 mg/dl (0.2-1); Globulin 3.3 gm/dl (2.5-4.0); Total Protein 6.4 gm/dl (6.4-8.2)
[2019-09-27 13:50] LABS: Macrocytosis Present
[2019-09-27] MEDS ORDERED: MAGNESIUM SULFATE / D5W 1 GM/100 ML BAG IV ONE (14:18)
[2019-09-27 15:59] LABS: NT Pro B Type Natriuretic Pept > 35000 pg/ml (0-1800)
[2019-09-27] MEDS ORDERED: FUROSEMIDE 40 MG/4 ML VIAL IV STA (16:05)
[2019-09-27] MEDS ORDERED: POLYETHYLENE (MIRALAX) 17 GM PACK PO PRN (16:42)
[2019-09-27] MEDS ORDERED: GLUCAGON FOR INJ 1 MG VIAL SQ PRN (16:42)
[2019-09-27] MEDS ORDERED: ONDANSETRON INJ 2 MG/ML 2 ML VIAL IV PRN (16:42)
[2019-09-27] MEDS ORDERED: DEXTROSE 50% 50 ML SYRINGE IV PRN (16:42)
[2019-09-27] MEDS ORDERED: GLUCOSE 10 TABS/TUBE PO PRN (16:42)
[2019-09-27] MEDS ORDERED: CARBOHYDRATES FOR HYPOGLYCEMIA PO PRN (16:42)
[2019-09-27] MEDS ORDERED: NITROGLYCERIN SL 0.4 MG/TAB TAB SL PRN (16:42)
[2019-09-27] MEDS ORDERED: GLUCOSE 40% GEL 15 GM TUBE PO PRN (16:42)
[2019-09-27] MEDS ORDERED: ACETAMINOPHEN 325 MG TAB PO PRN (16:42)
--- NOTE | 2019-09-27 16:42 | CT Scan Report ---
CT SCAN OF THE CHEST WITHOUT IV CONTRAST CLINICAL HISTORY: Hypoxia. Lung transplant. Interstitial lung disease. COMPARISON STUDY: Chest x-ray dated 09/27/2019. Chest CT dated 10/08/2018. Abdominal MRI dated 9. TECHNIQUE: CT scan of the thorax was performed from the thoracic inlet to the upper abdomen. Images are reviewed in the axial, sagittal, and coronal planes. IV contrast was not administered for this ex amination as per the referring clinician. A dose lowering technique was utilized [facility] DOSE: 384.40 mGy.cm FINDINGS: Thyroid: Atrophic and heterogeneous. Thoracic aorta: There is mild atherosclerotic calcification of the thoracic aorta, which is normal in caliber and demonstrates standard 3-vessel arch anatomy. Heart: The heart is enlarged and without pericardial effusion. An atrial septal closure device is not ed. The coronary arteries are densely calcified. There is diminished attenuation of the cardiac blood pool as compared to the myocardium suggesting anemia. The pulmonary arteries are dilated suggesting pulmonary artery hypertension. Lungs and pleural spaces: Postoperative change is noted at the right lung base. Changes of advanced i nterstitial lung disease are seen in the right mid to lower lung with extensive subpleural reticulati on, groundglass opacities, honeycombing, and traction bronchiectasis. A large bleb at the right apex is unchanged from previous. The presumed left lung transplant shows no evidence of interstitial lung disease. Groundglass consolidation is seen throughout the left lung, with mild associated intralobula r septal thickening. There are small to moderate pleural effusions, left larger than right with assoc iated atelectasis. Mediastinum: There are numerous subcentimeter mediastinal lymph nodes. Dyan: Not well assessed without IV contrast. Axillae: There is no axillary lymphadenopathy. Upper abdomen: There is a fat-containing supraumbilical hernia. A small hiatal hernia is noted. A 2.4 cm cystic lesion in the pancreatic head is similar to previous. This was better assessed on the 2019 MRI. Skeletal structures: The skeletal structures are osteopenic. Degenerative change is noted in the shou lders and thoracic spine. No lytic or blastic bony lesions are seen. Soft tissues: Gynecomastia is noted. IMPRESSION: 1. Cardiomegaly. Intralobular septal thickening throughout the left lung suggests a component of jania estive failure. 2. Groundglass consolidation is seen throughout the left lung. This could represent pulmonary edema a nd/or an infectious/inflammatory pneumonitis. Clinical correlation will be essential. 3. Small to moderate pleural effusions, left larger than right. 4. Changes of advanced interstitial lung disease are present in the right lung with evidence of previ ous surgery. 5. Additional findings as above. ACT 112: Negative or not required by law. Electronically signed by: George Gastelum M.D. 09/27/2019 4:40 PM
[2019-09-27] MEDS ORDERED: TOBRAMYCIN INH SCH (16:45)
--- NOTE | 2019-09-27 16:56 | History & Physical Report ---
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 difficile who presents to ED secondary to chest pain and shortness of breath x5 hours. Chest pain has resolved with nitro per pt. Hypoxic requiring 3L of O2 via NC. 1st troponin elevated at .070, which is baseline for pt. No ST or t wave changes noted on EKG Pt significantly hypertensive in setting of ESRD. Chest CT: 1. Cardiomegaly. Intralobular septal thickening throughout the left lung suggests a component of congestive failure. 2. Groundglass consolidation is seen throughout the left lung. This could represent pulmonary edema and/or an infectious/inflammatory pneumonitis. Clinical correlation will be essential. 3. Small to moderate pleural effusions, left larger than right. 4. Changes of advanced interstitial lung disease are present in the right lung with evidence of previous surgery. Sx likely in setting of acute on chronic CHF with pulmonary edema (pt with hx of HFrEF with a repeat echo 12/29/2018 showing return of normal EF 55-60%) other possible etiologies include ACS, PE, inflammatory pneumonitis admit to PCU Stat Lasix 80mg IV x 1 now trend troponin x 3 obtain echocardiogram consult cardiology and nephrology Spoke with Dr. Jade De La Cruz to discuss CT results - Feels likely etiology Pulm edema in setting of HTN urgency vs infectious pneumonitis in setting of immunosuppression. Pt low risk for dat novel covid due to no known exposure and pt has been at home. Ground glass opacities also seen on previous CT. Recommending starting broad spectrum antibiotics Start Vanco/zosyn sputum culture repeat CXR in a.m. UE b/l venous doppler pt with hx of DVT (4) CKD (chronic kidney disease) stage 5, GFR less than 15 ml/min: Patient with acute on chronic CKD stage V Baseline creatinine 3-3.5, he does have matured AV fistula BUN/creatinine 40 and 4.[address] Burnett - discussed case with him give IV lasix 80mg x 1 now (5) HTN (hypertension): Hypertensive URGENCY Patient significantly hypertensive in ED Likely in setting of volume overload and end-stage renal disease IV Lasix 80 mg x 1 now continue metoprolol and cardura (6) Hypomagnesemia: received 1g IV mag sulfated in ED given renal fxn will repeat mag in a.m. and replete as needed (7) Diabetes mellitus, type II: Last A1C in [employer] 5.5 09/2018 obtain A1C in a.m. insulin sliding scale per protocol (8) Idiopathic pulmonary fibrosis: History of left lung transplant in 2012 On tacrolimus, mycophenolate and prednisone Check tacrolimus and mycophenolate levels Continue Advair, tobramycin neb lower threshold to consult pulm if no improvement with diuresis (9) Lung transplant status: History of left lung transplant in 2012 On tacrolimus, mycophenolate and prednisone Check tacrolimus and mycophenolate levels Continue Advair, tobramycin neb (10) Paroxysmal atrial fibrillation: hx of PAF off OAC due to hx of GIB continue metoprolol (11) Hyperparathyroidism: continue calcitriol (12) Chronic anemia: H/H stable at 10/30.8 on aranesp weekly (13) HLD (hyperlipidemia): continue lovaza (14) DVT prophylaxis: SQ Heparin Disposition: admit to PCU Follow up: PCP Dr. Lindo upon discharge Pt was seen and examined in collaboration with Dr. Stoner, please see addendum Admission and Anticipated Discharge Date Admission Date: September 27, 2019 History of Present Illness Chief Complaint: Chest pain and shortness of breath x5 hours. Primary Care Provider: Carlton Lindo DO This is a 78-year-old male who has a complex medical history including status post left lung transplant in 2013 on chronic immunosuppressive therapy, CAD, history of ischemic cardiomyopathy with improved EF to 55 to 60%, ESRD with mature right AV fistula currently not on hemodialysis, anemia of chronic disease, PAF, history of DVT, history of CVA, HTN, HLD, hyperparathyroidism, history of C. difficile who presents to ED secondary to chest pain and shortness of breath x5 hours. He was in his normal state of health until today when he developed precordial chest pain. Pain was nonradiating, rated 6/10, described as stabbing, improved with nitro, nothing made it worse. He did have associated shortness of breath. He also admits to a cough that started today that was productive. He denies any recent fever, chills, sweats, lightheadedness, dizziness, syncope, palpitations, nausea, vomiting, abdominal pain. He does still produce urine and denies any dysuria, increased urgency or frequency. He moved his bowels just prior to my arrival he denies melena or hematochezia. He monitors his weight daily and denies any weight gain or weight loss. He denies any lower extremity edema, orthopnea or PND. His appetite is otherwise been okay. He complains of feeling similar to when he had a heart attack. He did not take any of his medications today. In ED patient was significantly hypertensive, 200/100 upon my evaluation. He was on 3 L of O2 maintaining a saturation of 92%. His heart rate was 52. He was afebrile. Lab work notable for WBC 8.8, H&H 10.0 and 30.8, platelet 173, BUN 40, creatinine 4.08, glucose 123, lactic acid 1.9, troponin .070, mag 1.5. Chest x-ray revealed cardiomegaly, bullous emphysema, chronic interstitial right lung disease, mild congestive failure versus interstitial inflammatory process. In ED he received 1g mag sulfate. Allergies Allergy/AdvReac Type Severity Reaction Status Date / Time levofloxacin Allergy Intermediate ANAPHYLAXIS Verified 09/27/19 14:18 oxycodone Allergy Intermediate ANAPHYLAXIS Verified 09/27/19 14:18 cat dander Allergy Unknown CHEST Verified 09/27/19 14:18 TIGHTNESS Home Medications Home Medications Medication Instructions Recorded Confirmed Type albuterol sulfate 2.5 mg CONTINUOUS NEBULIZATION BID 03/02/19 09/27/19 History ml clopidogrel 75 mg tablet 75 mg PO DAILY #30 tab 03/02/19 09/27/19 History doxazosin 4 mg tablet 8 mg PO HS tab 03/02/19 09/27/19 History fluoxetine 20 mg capsule 40 mg PO DAILY cap 03/02/19 09/27/19 History fluticasone 500 mcg-salmeterol 50 1 puffs INH Q12H 03/02/19 09/27/19 History mcg/dose blistr powdr for inhalation furosemide 40 mg tablet 40 mg PO DAILY #30 tab 03/02/19 09/27/19 History insulin lispro 100 unit/mL 0 - 140 sliding scale dose SUBCUT 03/02/19 09/27/19 History subcutaneous solution TID PRN ml magnesium chloride 71.5 mg 143 mg PO DAILY tab 03/02/19 09/27/19 History (magnesium chloride) tablet,delayed release montelukast 10 mg tablet 10 mg PO DAILY tab 03/02/19 09/27/19 History mycophenolate sodium 180 mg 180 mg PO BID tab 03/02/19 09/27/19 History tablet,delayed release pantoprazole 40 mg tablet,delayed 40 mg PO BID tab 03/02/19 09/27/19 History release rosuvastatin 40 mg tablet 40 mg PO HS #90 tab 03/02/19 09/27/19 History tacrolimus 0.5 mg capsule 0.5 mg PO BID cap 03/02/19 09/27/19 History acetaminophen [Tylenol Extra 500 mg PO Q6H PRN 04/21/19 09/27/19 History Strength] aspirin [Aspir-81] 81 mg PO DAILY 04/21/19 09/27/19 History azithromycin [Zithromax] 250 mg PO MOWEFR 04/21/19 09/27/19 History metoprolol succinate [Toprol XL] 100 mg PO DAILY 04/21/19 09/27/19 History omega-3 acid ethyl esters [Lovaza] 2 cap PO BID 04/21/19 09/27/19 History posaconazole [Noxafil] 300 mg PO DAILY 04/21/19 09/27/19 History prednisone 5 mg PO DAILY 04/21/19 09/27/19 History tobramycin 150 mg INHALATION Q12H 04/21/19 09/27/19 History cyclobenzaprine 5 mg tablet 5 mg PO TID PRN 07/04/19 09/27/19 History sodium bicarbonate 650 mg tablet 1,300 mg PO TID #60 tab 07/04/19 09/27/19 History acyclovir 400 mg PO BID 09/27/19 09/27/19 History darbepoetin nicholas in polysorbat 60 mcg SUBCUT MO 09/27/19 09/27/19 History [Aranesp (in polysorbate)] sulfamethoxazole-trimethoprim 1 tab PO MOTH 09/27/19 09/27/19 History [Bactrim] Past Med/Surg History Medical History Arthritis (Chronic) Chronic a-fib (Chronic) Chronic anemia (Chronic) Chronic diarrhea PT HAS BEEN SEEN AND EVALUATED BY GI FOR C-DIFF (NEGATIVE). GI CONCERNED AND FEELS SCOPE IS NECESSARY CKD (chronic kidney disease) stage 5, GFR less than 15 ml/min (Chronic) Diabetes mellitus, type II (Chronic) GERD (gastroesophageal reflux disease) (Chronic) Glaucoma (Chronic) H/O: CVA (cerebrovascular accident) (Chronic) HLD (hyperlipidemia) (Chronic) HTN (hypertension) (Chronic) Hyperglycemia (Chronic) Hyperparathyroidism (Chronic) Idiopathic pulmonary fibrosis (Chronic) Mood disorder (Chronic) Myocardial infarction (Acute) Paroxysmal atrial fibrillation (Chronic) Renal lesion Squamous cell carcinoma of skin of scalp (Chronic) Thrombocytopenia (Chronic) Surgical History History of cardiac cath STENTS X2 MAY 2018 (SEE [facility] [place]ORD ) Hx of heart artery stent (Chronic) S/P MITCHELL to LAD and circumflex after NSTEMI in 05/2018 Lung transplant status (Chronic) S/P patent foramen ovale closure (Resolved) Family History Father , in his seventies of cancer No problems noted. Mother , age 88 of CHF No problems noted. Daughter Age: 46 No problems noted. Son Age: 45 No problems noted. Other No significant family history Social History Preferred Language: Lithuanian Communication Ability: [employer] Required: No Beliefs That Will Affect Care: None marital status: Current Living Situation: Spouse current occupational status: retired Other Information That Helps Us Care for You: No Feels Safe at Home: Yes Safety Concerns: Feels Safe At This Time Smoking Status: Former smoker Tobacco Type: cigarettes ; Cigarettes Per Day: HX OF BRIEF SOCIAL USE WHILE IN , QUIT 45 YEARS AGO ; Second Hand Exposure: No ; Hx Alcohol Use: Yes (few drinks a week) Alcohol type: hard liquor Hx Substance Use: No caffeine: Yes (1 cup in am) Review of Systems 2 Review of Systems: All systems reviewed & are unremarkable except as noted in HPI & below Physical Exam Physical Exam: Constitutional: Chronically ill-appearing male, WD/WN vitals as above, NAD, sitting up in bed, hard of hearing, answers questions appropriately Head: Normocephalic, Atraumatic Eyes: PERRL, conjunctivae normal, anicteric sclerae ENMT: external ear and nose normal, oropharynx normal Neck: trachea midline, no thyromegaly normal visual inspection Respiratory: Increased respiratory effort, lungs clear to auscultation, no wheeze, rales, rhonchi. On O2 via NC 3L, no accessory muscle use Cardiovascular: Bradycardic rate, regular rhythm, no murmur, no edema Vessels: no JVD appreciated or carotid bruit , right radial AV fistula Chest: normal inspection of chest Abdomen: normal bowel sounds, soft, nontender, no hepatosplenomegaly Musculoskeletal: no cyanosis or clubbing, extremities motor strength 5/5 Skin: no rashes, warm and dry normal turgor Neurologic: PERRL, EOMI, accommodation nl, no face palsy, no dysarthria CN's II-XI intact bilaterally and moves all extremities Psychiatric: A+Ox3, euthymic affect Lymphatic: no cervical or axillary lymphadenopathy : deferred Results & Data Results & Data ([facility]) Vital Signs (Past 12 Hours) Vital Signs Temp Pulse Resp BP Pulse Ox 09/27/19 16:01 54 L 95 09/27/19 16:00 54 L 27 H 202/100 H 94 09/27/19 15:31 53 L 20 96 09/27/19 15:30 53 L 24 196/91 H 96 09/27/19 15:02 54 L 19 99 09/27/19 15:01 64 23 202/89 H 98 09/27/19 15:00 54 L 23 98 09/27/19 14:42 61 93 09/27/19 14:01 53 L 29 H 95 09/27/19 14:00 54 L 36 H 192/99 H 95 09/27/19 13:31 54 L 23 92 09/27/19 13:30 54 L 30 H 180/82 H 92 09/27/19 13:01 53 L 28 H 96 09/27/19 13:00 53 L 28 H 186/82 H 96 09/27/19 12:53 94 09/27/19 12:50 53 L 27 H 94 09/27/19 12:45 36.7 C 55 L 23 182/88 H 94 Laboratory Results Short CBC 09/27/19 09/27/19 09/27/19 Range/Units 12:55 12:55 15:04 WBC 8.80 (4.8-10.8) K/uL Hgb 10.0 L (14.0-18.0) g/dL Hct 30.8 L (42-52) % Plt Count 173 (130-400) K/uL Lymph # (Auto) 0.63 L (1.2-3.4) K/uL Creatinine 4.08 H (0.6-1.4) mg/dl Troponin I 0.070 H* (0-0.045) ng/ml NT-Pro-B Natriuret Pep > 18329 H (0-1800) pg/ml Albumin/Globulin Ratio 0.9 (0.9-2) BMP 09/27/19 12:55 Sodium 141 Potassium 4.1 Chloride 109 H Carbon Dioxide 24 BUN 40 H Creatinine 4.08 H Glucose 123 H Calcium 9.3 Cardiac Enzymes 09/27/19 Range/Units 15:04 Troponin I 0.070 H* (0-0.045) ng/ml Liver Function 09/27/19 Range/Units 12:55 Total Bilirubin 0.5 (0.2-1) mg/dl AST 10 L (15-37) U/L ALT 14 (12-78) U/L Alkaline Phosphatase 76 (45-117) U/L Albumin 3.1 L (3.4-5.0) gm/dl Diagnostic Findings Chest CT: IMPRESSION: 1. Cardiomegaly. Intralobular septal thickening throughout the left lung suggests a component of congestive failure. 2. Groundglass consolidation is seen throughout the left lung. This could represent pulmonary edema and/or an infectious/inflammatory pneumonitis. Clinical correlation will be essential. 3. Small to moderate pleural effusions, left larger than right. 4. Changes of advanced interstitial lung disease are present in the right lung with evidence of previous surgery. 5. Additional findings as above. CXR: IMPRESSION: 1. Cardiomegaly 2. Bullous emphysema 3. Chronic interstitial right lung disease 4. Slight elevation of the left lung interstitium. Diagnostic considerations include mild congestive failure versus an interstitial inflammatory process Medications Administered Discontinued Medications Magnesium Sulfate/Dextrose (Magnesium Sulfate / D5w) 1 gm in 100 mls @ 100 mls/hr IV ONE ONE Stop: 09/27/19 15:17 Last Infusion: 09/27/19 16:00 Dose: 0 mls/hr Documented by: [id number] Admin: 09/27/19 14:46 Dose: 100 mls/hr Documented by: [id number] ECG Indication: bradycardia Rate (beats per minute): 52 Additional Comments: wide QRS, LAD, compared to previous ecg 2018 with dec rate by 44 bpm Code Status & VTE Plan Code Status Full Code VTE Prophylaxis Plan VTE Prophylaxis will be ordered: Yes Supervising Physician Co-Signing Physician Notes Pt seen and examined by me, care coordinated w/ Mikaela Chawla PA-C, pls refer to her note above for further detail. Pt is a 78 y/o male with a complex medical history, s/p left lung transplant in 2012 (at [facility]) on chronic immunosuppressive therapy , hx of multiple infections and multiple bronchoscopies, CAD s/p MITCHELL to LAD (09/2018), history of ischemic cardiomyopathy with improved EF to 55% on last echo, ESRD with mature right AV fistula currently not on hemodialysis, anemia secondary to advanced CKD, PAF, history of DVT (b/l LE and more recently RUE), HTN,hx of recurrent C. diff. colitis who presents to ED secondary to chest pain and shortness of breath. Pt took nitro at home which seemed to help w/ CP. Troponin mildly (but chronically) elevated, in the setting of CKD. Currently pt on 3L of suppl. O2 satting 96%. Pt is sitting up in bed, in NAD. Per nursing staff in ED pt short of breath w/ mild exertion such as walking to the bathroom. Currently able to speak in full sentences. Mild bibasillary rhonchi/crackles noted, no wheezing, good resp. effort. Heart sounds regular, no murmur noted. Abdomen soft, nontender, nondistended. LE 1+ pitting edema b/l. Moves extremities spontaneously. Skin is warm and well perfused. Hx of prior DVT, concern for PE. will obtain US of RUE. in the setting of CKD, try to avoid contrast/ CT PE. Pulmonary edema on chest imaging, discussed imaging w/ pulm. and case also discussed w/ nephrology. Pt received IV lasix on admission. Procal elevated, in the setting of immunosuppression started on broad spectrum Abx. Echo ordered, hx of CAD and ICMO, now w/ pulm. edema and chest pain. Update: called by US - RUE DVT noted - started on IV heparin. Pt already on ASA and plavix and hx of GI bleed, will need to closely monitor for bleeding. Kylee Stoner MD (1) CHF (congestive heart failure) Heart failure chronicity: unspecified Heart failure type: unspecified Qualified Code(s): I50.9 - Heart failure, unspecified (2) Chest pain Chest pain type: precordial pain Qualified Code(s): R07.2 - Precordial pain (3) HTN (hypertension) Hypertension type: unspecified Qualified Code(s): I10 - Essential (primary) hypertension
[2019-09-27] MEDS ORDERED: PIPERACILL/TAZOBAC CONSULT ACTIVE PRN (17:28)
[2019-09-27] MEDS ORDERED: VANCOMYCIN CONSULT ACTIVE PRN (17:28)
[2019-09-27] MEDS: INSULIN ASPART 100 UNITS/ML 3 ML PEN SC SCH ×2 (17:42→20:29)
[2019-09-27] MEDS ORDERED: FUROSEMIDE 80 MG in SYRINGE 0 ML IV STA (17:50)
[2019-09-27] MEDS ORDERED: HydrALAZINE HCL 20 MG/ML VIAL IV ONE (17:55)
[2019-09-27] MEDS ORDERED: PIPERACILLIN/TAZOBACTAM 3.375 GM in DEXTROSE 5% 100 ML IV ONE (18:00)
[2019-09-27] MEDS: DOXAZosin MESYLATE 4 MG TAB PO SCH (18:03)
[2019-09-27] MEDS ORDERED: VANCOMYCIN HCL 2,000 MG in SODIUM CHLORIDE 0.9% 500 ML IV SCH (18:30)
[2019-09-27 18:34] LABS: Appearance Urine Clear (Clear); Bacteria Urine Automated Negative (Negative); Bilirubin Urine Negative (Negative); Blood Urine Negative (Negative); Color Urine Yellow; Epithelial Cell Urine Auto 20-30 /lpf (0-5); Glucose Urine UA Negative (Negative); Ketones Urine Negative (Negative); Leukocyte Esterase Urine Negative (Negative); Nitrite Urine Negative (Negative); Protein Urine 3+ (Negative); RBC Urine Automated 0-4 /hpf (0-4); Specific Gravity Urine 1.021 (1.000-1.030); Urobilinogen Urine Negative (Negative); pH Urine 6.5 (4.5-7.5)
[2019-09-27] MEDS ORDERED: HydrALAZINE HCL 20 MG/ML VIAL IV PRN (19:18)
[2019-09-27] MEDS: TOBRAMYCIN SULFATE INH SCH (19:23)
[2019-09-27] MEDS: ALBUT/IPRATROP 3MG/0.5MG NEB 3 ML VIAL NEB SCH (19:23)
[2019-09-27] MEDS ORDERED: DOXAZosin MESYLATE 4 MG TAB PO SCH (21:00)
[2019-09-27] MEDS ORDERED: Heparin IV Standard *NO* Bolus IV SCH (21:04)
[2019-09-27] MEDS: SODIUM BICARBONATE 650 MG TAB PO SCH (21:29)
[2019-09-27] MEDS: ROSUVASTATIN CALCIUM 20 MG TAB PO SCH (21:29)
[2019-09-27] MEDS: TACROLIMUS 0.5 MG CAP PO SCH (21:30)
[2019-09-27] MEDS: PANTOprazole 40 MG TAB PO SCH (21:30)
[2019-09-27] MEDS: OMEGA-3 (PURIFIED FISH OIL) 1 GM CAP PO SCH (21:30)
[2019-09-27] MEDS: MYCOPHENOLATE SODIUM 180 MG TAB PO SCH (21:30)
[2019-09-27] MEDS: ACYCLOVIR 400 MG TAB PO SCH (21:31)
[2019-09-27] MEDS: HEPARIN SODIUM/DEXTROSE 25,000 UNITS/500 ML BAG IV SCH (21:38)
--- NOTE | 2019-09-27 21:40 | Ultrasound Report ---
ULTRASOUND RIGHT UPPER EXTREMITY VENOUS CLINICAL HISTORY: Right arm pain. COMPARISON STUDY: No priors. TECHNIQUE: Real-time, grayscale, and color Doppler sonography of the deep veins of the right upper ex tremity is performed. Compression and augmentation were utilized. FINDINGS: There is nearly occlusive to occlusive to deep venous thrombosis identified within branches of the right brachial vein. Superficial venous thrombus is present in the cephalic vein within the a ntecubital fossa extending the forearm. Superficial venous thrombus approaches the dialysis fistula i n the forearm. The fistula itself appears patent. The right internal jugular and axillary veins are p atent and normally compressible. Normal venous waveforms and augmentation are seen within the right s ubclavian vein. The basilic vein is clear. The visualized radial vein is patent. The ulnar vein was n ot visualized. IMPRESSION: 1. There is nearly occlusive to occlusive deep venous thrombosis identified within branches of the br achial vein. 2. Occlusive superficial venous thrombus is present within the cephalic vein in the antecubital fossa extending into the forearm. See above. ACT 112: Negative or not required by law. Electronically signed by: George Gastelum M.D. 09/27/2019 9:38 PM
[2019-09-27] MEDS ORDERED: HEPARIN SOD 5,000 UNIT/0.5 ML VIAL SQ SCH (22:00)
[2019-09-27 22:55] LABS: BUN Creatinine Ratio 9.8 (10-20); Calcium 9.2 mg/dl (8.5-10.1); Creatinine Clr Calc Pharmacy 17.4 ml/min; Est GFR (African American) 15.6; Est GFR (Non-African American) 13.4; Magnesium 1.8 mg/dl (1.8-2.4); Phosphorus 2.8 mg/dl (2.5-4.9); Potassium 4.1 mmol/L (3.5-5.1)
[2019-09-27] MEDS: [UNRECOGNIZED DRUG - OTHER] SCH (23:06)
[2019-09-28 00:27] LABS: Troponin I 0.063 ng/ml (0-0.045)
[2019-09-28] MEDS: PIPERACILLIN/TAZOBACTAM 3.375 GM in DEXTROSE 5% 100 ML IV SCH ×2 (03:16→13:21)
[2019-09-28 04:07] LABS: Basophils # (auto) 0.03 K/uL (0-0.2); Basophils % (auto) 0.4 %; Eosinophils # (auto) 0.38 K/uL (0-0.5); Eosinophils % (auto) 4.7 %; Hematocrit (blood only) 31.1 % (42-52); Hemoglobin 10.2 g/dL (14.0-18.0); Immature Granulocytes # (auto) 0.02 K/uL (0.00-0.02); Immature Granulocytes % (auto) 0.2 %; Lymphocytes # (auto) 0.44 K/uL (1.2-3.4); Lymphocytes % (auto) 5.4 %; Mean Corpuscular Hemoglobin 36.2 pg (25-34); Mean Corpuscular Hgb Conc 32.8 g/dL (32-36); Mean Corpuscular Volume 110.3 fL (80-100); Mean Platelet Volume 12.2 fL (7.4-10.4); Monocytes # (auto) 1.02 K/uL (0.11-0.59); Monocytes % (auto) 12.6 %; Neutrophils # (auto) 6.19 K/uL (1.4-6.5); Neutrophils % (auto) 76.7 %; Platelet Count 176 K/uL (130-400); RDW Coefficient of Variation 14.8 % (11.5-14.5); RDW Standard Deviation 58.7 fL (36.4-46.3); Red Blood Count 2.82 M/uL (4.7-6.1); White Blood Count 8.08 K/uL (4.8-10.8)
[2019-09-28 04:24] LABS: Partial Thromboplastin Ratio 4.2
[2019-09-28 04:25] LABS: BUN Creatinine Ratio 9.7 (10-20); Calcium 8.9 mg/dl (8.5-10.1); Est GFR (African American) 16.3; Magnesium 1.7 mg/dl (1.8-2.4); Potassium 3.9 mmol/L (3.5-5.1)
[2019-09-28 04:32] LABS: Troponin I 0.079 ng/ml (0-0.045)
[2019-09-28 04:38] LABS: Macrocytosis Present; Ovalocytes 1+
[2019-09-28 05:41] LABS: Estimated Average Glucose 111 mg/dl; Hemoglobin A1C 5.5 % (4.5-5.6)
[2019-09-28] MEDS: ALBUT/IPRATROP 3MG/0.5MG NEB 3 ML VIAL NEB SCH ×4 (06:58→19:10)
[2019-09-28] MEDS: TOBRAMYCIN SULFATE INH SCH ×2 (06:58→19:09)
--- NOTE | 2019-09-28 07:56 | XRay Report ---
XR chest 1V portable HISTORY: 78 years-old Male repeat follow-up study in a patient with sepsis COMPARISON: Chest radiograph and chest CT 09/27/2019 TECHNIQUE: Portable AP view of the chest FINDINGS: Cardiac silhouette is enlarged, unchanged. Pulmonary vascular congestion with interstitial coarsening . Multifocal alveolar opacities of the right lung have slightly progressed. Alveolar opacities of the left lung base also progressed. Small pleural effusions. Severe bullous emphysema with little parenc hyma of the right upper lung. Degenerative changes of the shoulders and spine. IMPRESSION: 1. Cardiomegaly with pulmonary edema. 2. Multifocal alveolar opacities of the right lung with additional airspace disease of the left lung base has mildly progressed from comparison. 3. Unchanged pleural effusions. 4. Large bulla of the right upper lung redemonstrated. ACT 112: Negative or not required by law. The above report was generated using voice recognition software. It may contain grammatical, syntax o r spelling errors. Electronically signed by: Nathaniel Dan M.D. 09/28/2019 7:54 AM
[2019-09-28] MEDS: [UNRECOGNIZED DRUG - OTHER] SCH ×2 (08:01→16:51)
[2019-09-28] MEDS: INSULIN ASPART 100 UNITS/ML 3 ML PEN SC SCH ×4 (08:01→21:46)
[2019-09-28] MEDS: FLUTICASONE/VILANTEROL 200/25MCG 14 PUFFS/INHALER INH SCH (08:02)
[2019-09-28] MEDS: MAGNESIUM CHLORIDE 64MG DELAYED REL TAB PO SCH (08:06)
[2019-09-28] MEDS: METOPROLOL SUCC 50MG EXT REL TAB PO SCH (08:06)
[2019-09-28] MEDS: CLOPIDOGREL BISULFATE 75 MG TAB PO SCH (08:06)
[2019-09-28] MEDS: FLUOXETINE HCL 20 MG CAP PO SCH (08:06)
[2019-09-28] MEDS: OMEGA-3 (PURIFIED FISH OIL) 1 GM CAP PO SCH ×2 (08:07→21:22)
[2019-09-28] MEDS: MYCOPHENOLATE SODIUM 180 MG TAB PO SCH ×2 (08:07→21:22)
[2019-09-28] MEDS: PANTOprazole 40 MG TAB PO SCH ×2 (08:07→21:22)
[2019-09-28] MEDS: predniSONE 5 MG TAB PO SCH (08:07)
[2019-09-28] MEDS: ACYCLOVIR 400 MG TAB PO SCH ×2 (08:07→21:22)
[2019-09-28] MEDS: TACROLIMUS 0.5 MG CAP PO SCH ×2 (08:07→21:22)
[2019-09-28] MEDS: SODIUM BICARBONATE 650 MG TAB PO SCH ×3 (08:07→21:22)
--- NOTE | 2019-09-28 08:42 | Hospitalist Progress Note ---
Date of Service September 28, 2019 Assessment & Plan (1) Chest pain: likely secondary Hypertensive urgency, not ACS - CP resolved on admission - trop. mildly elevated (chronic) in setting of CKD - echo ordered and reviewed w/ cardiology, appreciate their input - pt initially received prn hydralazine and IV lasix - now started on amlodipine - BP much improved now, no recurrent complaint of chest pain (2) Hypoxia: (3) CHF (congestive heart failure): Acute hypoxic respiratory failure - multiple etiologies Pulmonary edema in setting of hypertensive urgency Acute on chronic systolic HF Concern for poss. 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 difficile colitis (recurrent) who presented to ED secondary to chest pain and shortness of breath. Initially on 6L of suppl. O2 via EMS, then down to 3L of suppl. O2 in the ED. Chest pain has resolved with nitro per pt. Hypoxic requiring 3L of O2 via NC. 1st troponin elevated at .070, which is baseline for pt. No ST or t wave changes noted on EKG Pt significantly hypertensive in setting of ESRD. Chest CT: 1. Cardiomegaly. Intralobular septal thickening throughout the left lung suggests a component of congestive failure. 2. Groundglass consolidation is seen throughout the left lung. This could represent pulmonary edema and/or an infectious/inflammatory pneumonitis. Clinical correlation will be essential. 3. Small to moderate pleural effusions, left larger than right. 4. Changes of advanced interstitial lung disease are present in the right lung with evidence of previous surgery. Sx likely in setting of acute on chronic CHF with pulmonary edema (pt with hx of HFrEF with a repeat echo 12/29/2018 showing return of normal EF 55%) Gave Lasix 80mg IV on admission and x2 today Cardiology and nephrology consulted Spoke with Dr. Hansen (Pulmonary) to discuss CT results - Feels likely etiology Pulm edema in setting of HTN urgency vs infectious pneumonitis in setting of immunosuppression. Pt low risk for dat novel COVID due to no known exposure and pt has been at home. Ground glass opacities also seen on previous CT. Recommending starting broad spectrum antibiotics Started Vanco/zosyn - given pt is improving and his med. hx, recommend 7-10 days of Abx therapy sputum culture RUE Brachial vein DVT - prior hx of RUE DVT, and b/l LE DVT - most recently treated for 3 months w/ warfarin - started on IV heparin - given pt is on ASA and plavix and has prior hx of GI bleed, will d/c ASA - plan for initiation of warfarin, will discuss w/ pharmacy if other options such as DOACs would be more appropriate/ not interact w/ pt's other medications (4) CKD (chronic kidney disease) stage 5, GFR less than 15 ml/min: Patient with acute on chronic CKD stage V Baseline creatinine 3-3.5, he does have matured AV fistula BUN/creatinine 40 and 4.08 Consulted nephrology, Dr. Burnett - case discussed on admission gave IV lasix 80mg x 1 on admission and x2 today plan to restart home 40 mg daily dose (5) HTN (hypertension): Hypertensive URGENCY Patient significantly hypertensive in ED Likely in setting of volume overload, end-stage renal disease, and CHF IV Lasix 80 mg and prn hydralazine on admission continue metoprolol and cardura Started amlodipine - pt's BP much improved (6) Hypomagnesemia: received 1g IV mag sulfated in ED monitor and replete as needed (7) Diabetes mellitus, type II: Last A1C in [employer] 5.5 09/2018 obtain A1C in a.m. insulin sliding scale per protocol (8) Idiopathic pulmonary fibrosis: History of left lung transplant in 2012 On tacrolimus, mycophenolate and prednisone Check tacrolimus and mycophenolate levels Continue Advair, tobramycin [facility] lower threshold to consult pulm if no improvement with diuresis (9) Lung transplant status: History of left lung transplant in 2013 On tacrolimus, mycophenolate and prednisone Check tacrolimus and mycophenolate levels Continue Advair, tobramycin neb [facility] contacted (10) Paroxysmal atrial fibrillation: hx of pAFib/ Aflutter off OAC due to hx of GIB continue metoprolol - now on IV heparin for RUE DVT, plan to start PO AC (11) Hyperparathyroidism: continue calcitriol (12) Chronic anemia: H/H stable at 10/30.8 on aranesp weekly (13) HLD (hyperlipidemia): continue lovaza (14) DVT prophylaxis: SQ Heparin Disposition: admit to PCU Follow up: PCP Dr. Lindo upon discharge Admission and Anticipated Discharge Date Admission Date: September 27, 2019 Subjective Pt is sitting up in bed, in NAD, on NC. Says he feels better, denies any chest pain.Still feels short of breath with mild exertion. Denies any fever, chills,abd. pain, nausea, vomiting. Review of Systems Review of Systems: All systems reviewed & are unremarkable except as noted in HPI & below Constitutional: no fever and no chills Respiratory: + dyspnea and + dyspnea on exertion; no cough Cardiovascular: no chest pain and no palpitations Gastrointestinal: no abdominal pain, no nausea and no vomiting Physical Exam Physical Exam: Constitutional: Chronically ill-appearing elderly male, sitting up in bed, in NAD, on NC Head: Normocephalic, Atraumatic Eyes: PERRL, conjunctivae normal, anicteric sclerae ENMT: external ear and nose normal, oropharynx normal Neck: trachea midline, no thyromegaly normal visual inspection Respiratory: normal respiratory effort, mild bibasilar rhonchi. crackles, no wheezing, on O2 via NC 2L, no accessory muscle use Cardiovascular: bradycardic, regular, no murmur, no edema Vessels: no JVD appreciated or carotid bruit , right radial AV fistula Chest: normal inspection of chest Abdomen: normal bowel sounds, soft, nontender, nondistended Musculoskeletal: no cyanosis or clubbing, extremities motor strength 5/5 Skin: no rashes, warm and dry normal turgor Neurologic: PERRL, EOMI, accommodation nl, no face palsy, no dysarthria CN's II-XI intact bilaterally and moves all extremities Psychiatric: A+Ox3, euthymic affect Results & Data Results & Data ([facility]) Vital Signs (Past 12 Hours) Vital Signs Temp Pulse Resp BP Pulse Ox 09/28/19 07:14 36.1 C L 55 L 19 187/80 H 100 09/28/19 07:00 58 L 18 98 09/28/19 04:20 36.8 C 55 L 20 174/72 H 98 09/27/19 23:22 36.6 C 55 L 22 154/66 H 97 Laboratory Results 09/28/19 09/28/19 09/28/19 Range/Units 07:28 03:41 03:41 WBC (4.8-10.8) K/uL RBC (4.7-6.1) M/uL Hgb (14.0-18.0) g/dL Hct (42-52) % MCV (80-100) fL MCH (25-34) pg MCHC (32-36) g/dL RDW Std Deviation (36.4-46.3) fL RDW Coeff of Ros (11.5-14.5) % Plt Count (130-400) K/uL MPV (7.4-10.4) fL Immature Gran % (Auto) % Neut % (Auto) % Lymph % (Auto) % Isabella % (Auto) % Eos % (Auto) % Baso % (Auto) % Immature Gran # (Auto) (0.00-0.02) K/uL Neut # (Auto) (1.4-6.5) K/uL Lymph # (Auto) (1.2-3.4) K/uL Isabella # (Auto) (0.11-0.59) K/uL Eos # (Auto) (0-0.5) K/uL Baso # (Auto) (0-0.2) K/uL Macrocytosis Ovalocytes PT (9.0-12.0) Seconds INR (0.9-1.1) APTT 117.0 H* (21.0-31.0) Seconds PTT Ratio 4.2 Sodium (136-145) mmol/L Potassium (3.5-5.1) mmol/L Chloride (98-107) mmol/L Carbon Dioxide (21-32) mmol/L Anion Gap (3-11) BUN (7-18) mg/dl Creatinine (0.6-1.4) mg/dl Est Cr Clr Drug Dosing ml/min Est GFR ( Amer) Est GFR (Non-Af Amer) BUN/Creatinine Ratio (10-20) Glucose (70-99) mg/dl POC Glucose 133 H (70-99) mg/dl Estimat Average Glucose mg/dl Hemoglobin A1c (4.5-5.6) % Lactate (0.4-2.0) mmol/L Calcium (8.5-10.1) mg/dl Phosphorus (2.5-4.9) mg/dl Magnesium (1.8-2.4) mg/dl Total Bilirubin (0.2-1) mg/dl AST (15-37) U/L ALT (12-78) U/L Alkaline Phosphatase (45-117) U/L Troponin I (0-0.045) ng/ml NT-Pro-B Natriuret Pep (0-1800) pg/ml Total Protein (6.4-8.2) gm/dl Albumin (3.4-5.0) gm/dl Globulin (2.5-4.0) gm/dl Albumin/Globulin Ratio (0.9-2) Procalcitonin (0-0.5) ng/ml Urine Color Urine Appearance (Clear) Urine pH (4.5-7.5) Ur Specific [place] (1.000-1.030) Urine Protein (Negative) Urine Glucose (UA) (Negative) Urine Ketones (Negative) Urine Blood (Negative) Urine Nitrite (Negative) Urine Bilirubin (Negative) Urine Urobilinogen (Negative) Ur Leukocyte Esterase (Negative) Urine WBC (Auto) (0-5) /hpf Urine RBC (Auto) (0-4) /hpf U Hyaline Cast (Auto) (0-5) /lpf U Epithel Cells (Auto) (0-5) /lpf Urine Bacteria (Auto) (Negative) Nasal Screen MRSA (PCR) (Negative) Random Vancomycin 15.7 mcg/ml Mycophenolic Acid MPA Glucuronide Tacrolimus 09/28/19 09/28/19 09/28/19 Range/Units 03:41 03:41 03:41 WBC 8.08 (4.8-10.8) K/uL RBC 2.82 L (4.7-6.1) M/uL Hgb 10.2 L (14.0-18.0) g/dL Hct 31.1 L (42-52) % MCV 110.3 H (80-100) fL MCH 36.2 H (25-34) pg MCHC 32.8 (32-36) g/dL RDW Std Deviation 58.7 H (36.4-46.3) fL RDW Coeff of Ros 14.8 H (11.5-14.5) % Plt Count 176 (130-400) K/uL MPV 12.2 H (7.4-10.4) fL Immature Gran % (Auto) 0.2 % Neut % (Auto) 76.7 % Lymph % (Auto) 5.4 % Isabella % (Auto) 12.6 % Eos % (Auto) 4.7 % Baso % (Auto) 0.4 % Immature Gran # (Auto) 0.02 (0.00-0.02) K/uL Neut # (Auto) 6.19 (1.4-6.5) K/uL Lymph # (Auto) 0.44 L (1.2-3.4) K/uL Isabella # (Auto) 1.02 H (0.11-0.59) K/uL Eos # (Auto) 0.38 (0-0.5) K/uL Baso # (Auto) 0.03 (0-0.2) K/uL Macrocytosis Present Ovalocytes 1+ PT (9.0-12.0) Seconds INR (0.9-1.1) APTT (21.0-31.0) Seconds PTT Ratio Sodium 138 (136-145) mmol/L Potassium 3.9 (3.5-5.1) mmol/L Chloride 106 (98-107) mmol/L Carbon Dioxide 27 (21-32) mmol/L Anion Gap 5.0 (3-11) BUN 38 H (7-18) mg/dl Creatinine 3.88 H (0.6-1.4) mg/dl Est Cr Clr Drug Dosing 18.0 ml/min Est GFR ( Amer) 16.3 Est GFR (Non-Af Amer) 14.0 BUN/Creatinine Ratio 9.7 L (10-20) Glucose 137 H (70-99) mg/dl POC Glucose (70-99) mg/dl Estimat Average Glucose mg/dl Hemoglobin A1c (4.5-5.6) % Lactate (0.4-2.0) mmol/L Calcium 8.9 (8.5-10.1) mg/dl Phosphorus (2.5-4.9) mg/dl Magnesium 1.7 L (1.8-2.4) mg/dl Total Bilirubin (0.2-1) mg/dl AST (15-37) U/L ALT (12-78) U/L Alkaline Phosphatase (45-117) U/L Troponin I 0.079 H* Cancelled (0-0.045) ng/ml NT-Pro-B Natriuret Pep (0-1800) pg/ml Total Protein (6.4-8.2) gm/dl Albumin (3.4-5.0) gm/dl Globulin (2.5-4.0) gm/dl Albumin/Globulin Ratio (0.9-2) Procalcitonin (0-0.5) ng/ml Urine Color Urine Appearance (Clear) Urine pH (4.5-7.5) Ur Specific [place] (1.000-1.030) Urine Protein (Negative) Urine Glucose (UA) (Negative) Urine Ketones (Negative) Urine Blood (Negative) Urine Nitrite (Negative) Urine Bilirubin (Negative) Urine Urobilinogen (Negative) Ur Leukocyte Esterase (Negative) Urine WBC (Auto) (0-5) /hpf Urine RBC (Auto) (0-4) /hpf U Hyaline Cast (Auto) (0-5) /lpf U Epithel Cells (Auto) (0-5) /lpf Urine Bacteria (Auto) (Negative) Nasal Screen MRSA (PCR) (Negative) Random Vancomycin mcg/ml Mycophenolic Acid MPA Glucuronide Tacrolimus 09/28/19 09/27/19 09/27/19 Range/Units 03:41 22:21 20:08 WBC (4.8-10.8) K/uL RBC (4.7-6.1) M/uL Hgb (14.0-18.0) g/dL Hct (42-52) % MCV (80-100) fL MCH (25-34) pg MCHC (32-36) g/dL RDW Std Deviation (36.4-46.3) fL RDW Coeff of Ros (11.5-14.5) % Plt Count (130-400) K/uL MPV (7.4-10.4) fL Immature Gran % (Auto) % Neut % (Auto) % Lymph % (Auto) % Isabella % (Auto) % Eos % (Auto) % Baso % (Auto) % Immature Gran # (Auto) (0.00-0.02) K/uL Neut # (Auto) (1.4-6.5) K/uL Lymph # (Auto) (1.2-3.4) K/uL Isabella # (Auto) (0.11-0.59) K/uL Eos # (Auto) (0-0.5) K/uL Baso # (Auto) (0-0.2) K/uL Macrocytosis Ovalocytes PT (9.0-12.0) Seconds INR (0.9-1.1) APTT (21.0-31.0) Seconds PTT Ratio Sodium 139 (136-145) mmol/L Potassium 4.1 (3.5-5.1) mmol/L Chloride 107 (98-107) mmol/L Carbon Dioxide 26 (21-32) mmol/L Anion Gap 6.0 (3-11) BUN 39 H (7-18) mg/dl Creatinine 4.02 H (0.6-1.4) mg/dl Est Cr Clr Drug Dosing 17.4 ml/min Est GFR ( Amer) 15.6 Est GFR (Non-Af Amer) 13.4 BUN/Creatinine Ratio 9.8 L (10-20) Glucose 142 H (70-99) mg/dl POC Glucose 137 H (70-99) mg/dl Estimat Average Glucose 111 mg/dl Hemoglobin A1c 5.5 (4.5-5.6) % Lactate (0.4-2.0) mmol/L Calcium 9.2 (8.5-10.1) mg/dl Phosphorus 2.8 (2.5-4.9) mg/dl Magnesium 1.8 (1.8-2.4) mg/dl Total Bilirubin (0.2-1) mg/dl AST (15-37) U/L ALT (12-78) U/L Alkaline Phosphatase (45-117) U/L Troponin I 0.063 H* (0-0.045) ng/ml NT-Pro-B Natriuret Pep (0-1800) pg/ml Total Protein (6.4-8.2) gm/dl Albumin (3.4-5.0) gm/dl Globulin (2.5-4.0) gm/dl Albumin/Globulin Ratio (0.9-2) Procalcitonin (0-0.5) ng/ml Urine Color Urine Appearance (Clear) Urine pH (4.5-7.5) Ur Specific [place] (1.000-1.030) Urine Protein (Negative) Urine Glucose (UA) (Negative) Urine Ketones (Negative) Urine Blood (Negative) Urine Nitrite (Negative) Urine Bilirubin (Negative) Urine Urobilinogen (Negative) Ur Leukocyte Esterase (Negative) Urine WBC (Auto) (0-5) /hpf Urine RBC (Auto) (0-4) /hpf U Hyaline Cast (Auto) (0-5) /lpf U Epithel Cells (Auto) (0-5) /lpf Urine Bacteria (Auto) (Negative) Nasal Screen MRSA (PCR) (Negative) Random Vancomycin mcg/ml Mycophenolic Acid MPA Glucuronide Tacrolimus 09/27/19 09/27/19 09/27/19 Range/Units 20:04 18:39 18:39 WBC (4.8-10.8) K/uL RBC (4.7-6.1) M/uL Hgb (14.0-18.0) g/dL Hct (42-52) % MCV (80-100) fL MCH (25-34) pg MCHC (32-36) g/dL RDW Std Deviation (36.4-46.3) fL RDW Coeff of Ros (11.5-14.5) % Plt Count (130-400) K/uL MPV (7.4-10.4) fL Immature Gran % (Auto) % Neut % (Auto) % Lymph % (Auto) % Isabella % (Auto) % Eos % (Auto) % Baso % (Auto) % Immature Gran # (Auto) (0.00-0.02) K/uL Neut # (Auto) (1.4-6.5) K/uL Lymph # (Auto) (1.2-3.4) K/uL Isabella # (Auto) (0.11-0.59) K/uL Eos # (Auto) (0-0.5) K/uL Baso # (Auto) (0-0.2) K/uL Macrocytosis Ovalocytes PT (9.0-12.0) Seconds INR (0.9-1.1) APTT (21.0-31.0) Seconds PTT Ratio Sodium (136-145) mmol/L Potassium (3.5-5.1) mmol/L Chloride (98-107) mmol/L Carbon Dioxide (21-32) mmol/L Anion Gap (3-11) BUN (7-18) mg/dl Creatinine (0.6-1.4) mg/dl Est Cr Clr Drug Dosing ml/min Est GFR ( Amer) Est GFR (Non-Af Amer) BUN/Creatinine Ratio (10-20) Glucose (70-99) mg/dl POC Glucose (70-99) mg/dl Estimat Average Glucose mg/dl Hemoglobin A1c (4.5-5.6) % Lactate (0.4-2.0) mmol/L Calcium (8.5-10.1) mg/dl Phosphorus (2.5-4.9) mg/dl Magnesium (1.8-2.4) mg/dl Total Bilirubin (0.2-1) mg/dl AST (15-37) U/L ALT (12-78) U/L Alkaline Phosphatase (45-117) U/L Troponin I 0.074 H* (0-0.045) ng/ml NT-Pro-B Natriuret Pep (0-1800) pg/ml Total Protein (6.4-8.2) gm/dl Albumin (3.4-5.0) gm/dl Globulin (2.5-4.0) gm/dl Albumin/Globulin Ratio (0.9-2) Procalcitonin (0-0.5) ng/ml Urine Color Urine Appearance (Clear) Urine pH (4.5-7.5) Ur Specific [place] (1.000-1.030) Urine Protein (Negative) Urine Glucose (UA) (Negative) Urine Ketones (Negative) Urine Blood (Negative) Urine Nitrite (Negative) Urine Bilirubin (Negative) Urine Urobilinogen (Negative) Ur Leukocyte Esterase (Negative) Urine WBC (Auto) (0-5) /hpf Urine RBC (Auto) (0-4) /hpf U Hyaline Cast (Auto) (0-5) /lpf U Epithel Cells (Auto) (0-5) /lpf Urine Bacteria (Auto) (Negative) Nasal Screen MRSA (PCR) (Negative) Random Vancomycin mcg/ml Mycophenolic Acid Pending MPA Glucuronide Pending Tacrolimus Pending 09/27/19 09/27/19 09/27/19 Range/Units 18:00 18:00 17:01 WBC (4.8-10.8) K/uL RBC (4.7-6.1) M/uL Hgb (14.0-18.0) g/dL Hct (42-52) % MCV (80-100) fL MCH (25-34) pg MCHC (32-36) g/dL RDW Std Deviation (36.4-46.3) fL RDW Coeff of Ros (11.5-14.5) % Plt Count (130-400) K/uL MPV (7.4-10.4) fL Immature Gran % (Auto) % Neut % (Auto) % Lymph % (Auto) % Isabella % (Auto) % Eos % (Auto) % Baso % (Auto) % Immature Gran # (Auto) (0.00-0.02) K/uL Neut # (Auto) (1.4-6.5) K/uL Lymph # (Auto) (1.2-3.4) K/uL Isabella # (Auto) (0.11-0.59) K/uL Eos # (Auto) (0-0.5) K/uL Baso # (Auto) (0-0.2) K/uL Macrocytosis Ovalocytes PT (9.0-12.0) Seconds INR (0.9-1.1) APTT (21.0-31.0) Seconds PTT Ratio Sodium (136-145) mmol/L Potassium (3.5-5.1) mmol/L Chloride (98-107) mmol/L Carbon Dioxide (21-32) mmol/L Anion Gap (3-11) BUN (7-18) mg/dl Creatinine (0.6-1.4) mg/dl Est Cr Clr Drug Dosing ml/min Est GFR ( Amer) Est GFR (Non-Af Amer) BUN/Creatinine Ratio (10-20) Glucose (70-99) mg/dl POC Glucose 131 H (70-99) mg/dl Estimat Average Glucose mg/dl Hemoglobin A1c (4.5-5.6) % Lactate (0.4-2.0) mmol/L Calcium (8.5-10.1) mg/dl Phosphorus (2.5-4.9) mg/dl Magnesium (1.8-2.4) mg/dl Total Bilirubin (0.2-1) mg/dl AST (15-37) U/L ALT (12-78) U/L Alkaline Phosphatase (45-117) U/L Troponin I (0-0.045) ng/ml NT-Pro-B Natriuret Pep (0-1800) pg/ml Total Protein (6.4-8.2) gm/dl Albumin (3.4-5.0) gm/dl Globulin (2.5-4.0) gm/dl Albumin/Globulin Ratio (0.9-2) Procalcitonin (0-0.5) ng/ml Urine Color Yellow Urine Appearance Clear (Clear) Urine pH 6.5 (4.5-7.5) Ur Specific [place] 1.021 (1.000-1.030) Urine Protein 3+ H (Negative) Urine Glucose (UA) Negative (Negative) Urine Ketones Negative (Negative) Urine Blood Negative (Negative) Urine Nitrite Negative (Negative) Urine Bilirubin Negative (Negative) Urine Urobilinogen Negative (Negative) Ur Leukocyte Esterase Negative (Negative) Urine WBC (Auto) 1-5 (0-5) /hpf Urine RBC (Auto) 0-4 (0-4) /hpf U Hyaline Cast (Auto) 1-5 (0-5) /lpf U Epithel Cells (Auto) 20-30 H (0-5) /lpf Urine Bacteria (Auto) Negative (Negative) Nasal Screen MRSA (PCR) Negative (Negative) Random Vancomycin mcg/ml Mycophenolic Acid MPA Glucuronide Tacrolimus 09/27/19 09/27/19 09/27/19 Range/Units 15:04 13:22 12:55 WBC (4.8-10.8) K/uL RBC (4.7-6.1) M/uL Hgb (14.0-18.0) g/dL Hct (42-52) % MCV (80-100) fL MCH (25-34) pg MCHC (32-36) g/dL RDW Std Deviation (36.4-46.3) fL RDW Coeff of Ros (11.5-14.5) % Plt Count (130-400) K/uL MPV (7.4-10.4) fL Immature Gran % (Auto) % Neut % (Auto) % Lymph % (Auto) % Isabella % (Auto) % Eos % (Auto) % Baso % (Auto) % Immature Gran # (Auto) (0.00-0.02) K/uL Neut # (Auto) (1.4-6.5) K/uL Lymph # (Auto) (1.2-3.4) K/uL Isabella # (Auto) (0.11-0.59) K/uL Eos # (Auto) (0-0.5) K/uL Baso # (Auto) (0-0.2) K/uL Macrocytosis Ovalocytes PT (9.0-12.0) Seconds INR (0.9-1.1) APTT (21.0-31.0) Seconds PTT Ratio Sodium (136-145) mmol/L Potassium (3.5-5.1) mmol/L Chloride (98-107) mmol/L Carbon Dioxide (21-32) mmol/L Anion Gap (3-11) BUN (7-18) mg/dl Creatinine (0.6-1.4) mg/dl Est Cr Clr Drug Dosing ml/min Est GFR ( Amer) Est GFR (Non-Af Amer) BUN/Creatinine Ratio (10-20) Glucose (70-99) mg/dl POC Glucose (70-99) mg/dl Estimat Average Glucose mg/dl Hemoglobin A1c (4.5-5.6) % Lactate 1.9 (0.4-2.0) mmol/L Calcium (8.5-10.1) mg/dl Phosphorus (2.5-4.9) mg/dl Magnesium (1.8-2.4) mg/dl Total Bilirubin (0.2-1) mg/dl AST (15-37) U/L ALT (12-78) U/L Alkaline Phosphatase (45-117) U/L Troponin I 0.070 H* (0-0.045) ng/ml NT-Pro-B Natriuret Pep > 70952 H (0-1800) pg/ml Total Protein (6.4-8.2) gm/dl Albumin (3.4-5.0) gm/dl Globulin (2.5-4.0) gm/dl Albumin/Globulin Ratio (0.9-2) Procalcitonin 2.56 H (0-0.5) ng/ml Urine Color Urine Appearance (Clear) Urine pH (4.5-7.5) Ur Specific [place] (1.000-1.030) Urine Protein (Negative) Urine Glucose (UA) (Negative) Urine Ketones (Negative) Urine Blood (Negative) Urine Nitrite (Negative) Urine Bilirubin (Negative) Urine Urobilinogen (Negative) Ur Leukocyte Esterase (Negative) Urine WBC (Auto) (0-5) /hpf Urine RBC (Auto) (0-4) /hpf U Hyaline Cast (Auto) (0-5) /lpf U Epithel Cells (Auto) (0-5) /lpf Urine Bacteria (Auto) (Negative) Nasal Screen MRSA (PCR) (Negative) Random Vancomycin mcg/ml Mycophenolic Acid MPA Glucuronide Tacrolimus 09/27/19 09/27/19 09/27/19 Range/Units 12:55 12:55 12:55 WBC 8.80 (4.8-10.8) K/uL RBC 2.76 L (4.7-6.1) M/uL Hgb 10.0 L (14.0-18.0) g/dL Hct 30.8 L (42-52) % MCV 111.6 H (80-100) fL MCH 36.2 H (25-34) pg MCHC 32.5 (32-36) g/dL RDW Std Deviation 59.2 H (36.4-46.3) fL RDW Coeff of Ros 14.8 H (11.5-14.5) % Plt Count 173 (130-400) K/uL MPV 12.1 H (7.4-10.4) fL Immature Gran % (Auto) 0.2 % Neut % (Auto) 77.3 % Lymph % (Auto) 7.2 % Isabella % (Auto) 11.6 % Eos % (Auto) 3.4 % Baso % (Auto) 0.3 % Immature Gran # (Auto) 0.02 (0.00-0.02) K/uL Neut # (Auto) 6.80 H (1.4-6.5) K/uL Lymph # (Auto) 0.63 L (1.2-3.4) K/uL Isabella # (Auto) 1.02 H (0.11-0.59) K/uL Eos # (Auto) 0.30 (0-0.5) K/uL Baso # (Auto) 0.03 (0-0.2) K/uL Macrocytosis Present Ovalocytes PT 11.3 (9.0-12.0) Seconds INR 1.1 (0.9-1.1) APTT 25.6 (21.0-31.0) Seconds PTT Ratio 0.9 Sodium 141 (136-145) mmol/L Potassium 4.1 (3.5-5.1) mmol/L Chloride 109 H (98-107) mmol/L Carbon Dioxide 24 (21-32) mmol/L Anion Gap 8.0 (3-11) BUN 40 H (7-18) mg/dl Creatinine 4.08 H (0.6-1.4) mg/dl Est Cr Clr Drug Dosing 17.1 ml/min Est GFR ( Amer) 15.3 Est GFR (Non-Af Amer) 13.2 BUN/Creatinine Ratio 9.8 L (10-20) Glucose 123 H (70-99) mg/dl POC Glucose (70-99) mg/dl Estimat Average Glucose mg/dl Hemoglobin A1c (4.5-5.6) % Lactate (0.4-2.0) mmol/L Calcium 9.3 (8.5-10.1) mg/dl Phosphorus (2.5-4.9) mg/dl Magnesium 1.5 L (1.8-2.4) mg/dl Total Bilirubin 0.5 (0.2-1) mg/dl AST 10 L (15-37) U/L ALT 14 (12-78) U/L Alkaline Phosphatase 76 (45-117) U/L Troponin I (0-0.045) ng/ml NT-Pro-B Natriuret Pep (0-1800) pg/ml Total Protein 6.4 (6.4-8.2) gm/dl Albumin 3.1 L (3.4-5.0) gm/dl Globulin 3.3 (2.5-4.0) gm/dl Albumin/Globulin Ratio 0.9 (0.9-2) Procalcitonin (0-0.5) ng/ml Urine Color Urine Appearance (Clear) Urine pH (4.5-7.5) Ur Specific [place] (1.000-1.030) Urine Protein (Negative) Urine Glucose (UA) (Negative) Urine Ketones (Negative) Urine Blood (Negative) Urine Nitrite (Negative) Urine Bilirubin (Negative) Urine Urobilinogen (Negative) Ur Leukocyte Esterase (Negative) Urine WBC (Auto) (0-5) /hpf Urine RBC (Auto) (0-4) /hpf U Hyaline Cast (Auto) (0-5) /lpf U Epithel Cells (Auto) (0-5) /lpf Urine Bacteria (Auto) (Negative) Nasal Screen MRSA (PCR) (Negative) Random Vancomycin mcg/ml Mycophenolic Acid MPA Glucuronide Tacrolimus Medications Administered Current Inpatient Medications Acetaminophen (Tylenol) 650 mg PO Q4H PRN PRN Reason: Pain or Fever Stop: 10/27/19 16:41 Acyclovir (Zovirax) 400 mg PO BID [facility] Stop: 10/27/19 20:59 Last Admin: 09/28/19 08:07 Dose: 400 mg Documented by: Albuterol (Duoneb) 3 ml NEB QIDR [facility] Stop: 10/27/19 18:59 Last Admin: 09/28/19 06:58 Dose: 3 ml Documented by: Aspirin (Ecotrin Ectab) 81 mg PO DAILY [facility] Stop: 10/28/19 08:59 Last Admin: 09/28/19 08:06 Dose: 81 mg Documented by: Clopidogrel Bisulfate (Plavix) 75 mg PO DAILY [facility] Stop: 10/28/19 08:59 Last Admin: 09/28/19 08:06 Dose: 75 mg Documented by: Dextrose (Dextrose 50%) 25 - 50 ml IV UD PRN; Protocol PRN Reason: Hypoglycemia Protocol Stop: 10/27/19 16:41 Doxazosin Mesylate (Cardura) 8 mg PO HS [facility] Stop: 10/27/19 17:59 Last Admin: 09/27/19 18:03 Dose: 8 mg Documented by: Fish Oil (Cash-3 (Purified Fish Oil)) 1 gm PO BID [facility] Stop: 10/27/19 20:59 Last Admin: 09/28/19 08:07 Dose: 1 gm Documented by: Fluoxetine HCl (Prozac) 40 mg PO DAILY [facility] Stop: 10/28/19 08:59 Last Admin: 09/28/19 08:06 Dose: 40 mg Documented by: Fluticasone/Vilanterol (Breo Ellipta 200/25 Mcg Inh) 1 puffs INH DAILY [facility] Stop: 10/28/19 08:59 Last Admin: 09/28/19 08:02 Dose: 1 puffs Documented by: Glucagon (Glucagen) 1 mg SQ UD PRN; Protocol PRN Reason: Hypoglycemia Protocol Stop: 10/27/19 16:41 Glucose (Dex4 Glucose) 4 - 8 tabs PO UD PRN; Protocol PRN Reason: Hypoglycemia Protocol Stop: 10/27/19 16:41 Glucose (Glucose 40%) 15 - 30 gm PO UD PRN; Protocol PRN Reason: Hypoglycemia Protocol Stop: 10/27/19 16:41 Heparin Sodium (Porcine) (Heparin Sodium (Porcine)) 5,000 units SQ Q8 [facility] Stop: 10/27/19 21:59 Last Admin: 09/27/19 21:13 Dose: Not Given Documented by: Hydralazine HCl (Hydralazine Hcl) 5 mg IV Q4H PRN PRN Reason: SBP> 175 Stop: 10/27/19 19:17 Last Admin: 09/27/19 21:38 Dose: 5 mg Documented by: Tobramycin Sulfate 150 mg/ (Syringe) 3.75 mls @ 0.033 mls/min INH Q12R [facility] Stop: 10/27/19 18:59 Last Admin: 09/28/19 06:58 Dose: 0.033 mls/min Documented by: Piperacillin Sod/Tazobactam (Sod 3.375 gm/ Dextrose) 115 mls @ 28.75 mls/hr IV Q12H [facility]; Protocol Stop: 10/05/19 01:59 Last Infusion: 09/28/19 07:38 Dose: Infused Documented by: Heparin Sodium/Dextrose (Heparin Sodium/Dextrose) 25,000 units in 500 mls @ 24 mls/hr IV .[id number] [facility]; Protocol Stop: 10/27/19 21:14 Last Titration: 09/28/19 07:07 Dose: 1,200 units/hr, 24 mls/hr Documented by: Insulin Aspart (Novolog Flexpen) 0 units SC ACHS [facility] Stop: 10/27/19 16:41 Last Admin: 09/28/19 08:01 Dose: 2 units Documented by: Magnesium Chloride (Slow-Mag) 64 mg PO DAILY [facility] Stop: 10/28/19 08:59 Last Admin: 09/28/19 08:06 Dose: 64 mg Documented by: Metoprolol Succinate (Toprol Xl) 100 mg PO DAILY [facility] Stop: 10/28/19 08:59 Last Admin: 09/28/19 08:06 Dose: 100 mg Documented by: Miscellaneous (Carbohydrates For Hypoglycemia) 15 - 30 gm PO UD PRN PRN Reason: Hypoglycemia Protocol Stop: 10/27/19 16:41 Miscellaneous (Order Awaiting Action) 1 ea N/A QS [facility] Stop: 10/28/19 00:00 Last Admin: 09/28/19 08:01 Dose: Not Given Documented by: Miscellaneous Information (Consult) 1 ea N/A UD PRN PRN Reason: Consult Stop: 10/27/19 17:27 Miscellaneous Information (Consult) 1 ea N/A UD PRN PRN Reason: Consult Stop: 10/27/19 17:27 Montelukast Sodium (Singulair) 10 mg PO QPM [facility] Stop: 10/28/19 20:59 Mycophenolate Sodium (Myfortic) 180 mg PO BID [facility] Stop: 10/27/19 20:59 Last Admin: 09/28/19 08:07 Dose: 180 mg Documented by: Nitroglycerin (Nitrostat) 0.4 mg SL UD PRN PRN Reason: Chest Pain Stop: 10/27/19 16:41 Ondansetron HCl (Zofran) 4 mg IV Q6H PRN PRN Reason: Nausea Stop: 10/27/19 16:41 Pantoprazole Sodium (Protonix) 40 mg PO BID [facility] Stop: 10/27/19 20:59 Last Admin: 09/28/19 08:07 Dose: 40 mg Documented by: Polyethylene Glycol (Miralax Powder Packet) 17 gm PO DAILY PRN PRN Reason: Constipation Stop: 10/27/19 16:41 Prednisone (Prednisone) 5 mg PO DAILY [facility] Stop: 10/28/19 08:59 Last Admin: 09/28/19 08:07 Dose: 5 mg Documented by: Rosuvastatin Calcium (Crestor) 40 mg PO HS [facility] Stop: 10/27/19 20:59 Last Admin: 09/27/19 21:29 Dose: 40 mg Documented by: Sodium Bicarbonate (Sodium Bicarbonate) 1,300 mg PO TID [facility] Stop: 10/27/19 20:59 Last Admin: 09/28/19 08:07 Dose: 1,300 mg Documented by: Tacrolimus (Prograf) 0.5 mg PO BID [facility] Stop: 10/27/19 20:59 Last Admin: 09/28/19 08:07 Dose: 0.5 mg Documented by: Trimethoprim/Sulfamethoxazole (Septra 400/80mg Tab) 1 tab PO MoTh@0900 [facility] Stop: 10/28/19 08:59 (1) CHF (congestive heart failure) Heart failure chronicity: unspecified Heart failure type: unspecified Qualified Code(s): I50.9 - Heart failure, unspecified (2) Chest pain Chest pain type: precordial pain Qualified Code(s): R07.2 - Precordial pain (3) HTN (hypertension) Hypertension type: unspecified Qualified Code(s): I10 - Essential (primary) hypertension
[2019-09-28] MEDS ORDERED: ASPIRIN 81 MG ECTAB PO SCH (09:00)
[2019-09-28] MEDS ORDERED: AMLODIPINE BESYLATE 5 MG TAB PO ONE ×2 (09:21→13:18)
[2019-09-28] MEDS ORDERED: VANCOMYCIN HCL 1,000 MG in SODIUM CHLORIDE 0.9% 250 ML IV ONE (09:30)
[2019-09-28] MEDS ORDERED: FUROSEMIDE 80 MG in SYRINGE 0 ML IV ONE ×2 (10:45→17:00)
--- NOTE | 2019-09-28 10:47 | Electrocardiogram Report ---
Test Reason : Blood Pressure : / mmHG Vent. Rate : 053 BPM Atrial Rate : 053 BPM P-R Int : 360 ms QRS Dur : 126 ms QT Int : 506 ms P-R-T Axes : 000 -34 081 degrees QTc Int : 474 ms Poor data quality, interpretation may be adversely affected Sinus rhythm with 1st degree A-V block IVCD of LBBB type Left axis deviation Abnormal ECG When compared with ECG of 09-FEB-2019 09:36, IVCD is now present Vent. rate has decreased BY 44 BPM Confirmed by Yaya Dalton ([id number]) on 09/28/2019 10:47:03 AM Referred By: REFERRED SELF Confirmed By:Yaya Dalton
[2019-09-28 11:35] LABS: Partial Thromboplastin Ratio 3.5
[2019-09-28 11:48] LABS: Hepatitis B Surface Ab Quant < 3.10 mIU/mL (>or=10mIU/mL Immune); Hepatitis B Surface Antibody Non-Immune
[2019-09-28 11:59] LABS: Hepatitis B Surface Antigen Neg (Neg)
[2019-09-28 12:01] LABS: Partial Thromboplastin Time 97.2 Seconds (21.0-31.0)
--- NOTE | 2019-09-28 12:35 | Electrocardiogram Report ---
Test Reason : Blood Pressure : / mmHG Vent. Rate : 055 BPM Atrial Rate : 220 BPM P-R Int : 000 ms QRS Dur : 124 ms QT Int : 512 ms P-R-T Axes : 158 -39 080 degrees QTc Int : 489 ms Atrial flutter with 4:1 A-V conduction Left axis deviation Left ventricular hypertrophy with QRS widening and repolarization abnormality Abnormal ECG When compared with ECG of 27-SEP-2019 12:50, Probably No significant change (prior rhythm likely aflutter as well) Confirmed by Jann Ley ([id number]) on 09/28/2019 12:34:47 PM Referred By: REFERRED SELF Confirmed By:Jann Ley
[2019-09-28] MEDS: HEPARIN SODIUM/DEXTROSE 25,000 UNITS/500 ML BAG IV SCH ×2 (14:30→18:14)
--- NOTE | 2019-09-28 14:33 | Cardiology Consultation ---
Date of Consultation September 28, 2019 Assessment & Plan (1) Chest pain: Given the clinical context of believe Mr. London was suffering from hypertensive urgency that resulted in chest discomfort. So at this time I have given him a total of 10 mg of amlodipine p.o. today and will follow his BP. I do not believe this represents an acute ischemic event and no further testing is necessary at this time. Given the finding of upper extremity DVTs there is also a possibility for pulmonary emboli, however, he is already been started on heparin and will be bridged to Coumadin. Given the fact he is can receive anticoagulation at this point I doubt that any further work-up will be beneficial given the fact it would not change his medical management. (2) Pulmonary edema: Likely contributing to his shortness of breath. Received IV Lasix in the ER and will give another dose this afternoon. 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 At this point it appears he would benefit from lifelong anticoagulation for recurrent DVTs. He does carry history of GI bleed while on triple therapy in the past so I will discontinue his aspirin at this time. (4) Lung transplant status: Stable (5) Ischemic cardiomyopathy: Transient. Echocardiogram from October 2018 showed a similar pattern however cardiac catheterization prior to that showed widely patent LAD stents. 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 I do not believe there will be any benefit from repeating a cardiac catheterization at this time and he will be continued to be treated with goal- directed medical therapy. History of Present Illness Reason for Consultation: chest pain Requesting Physician: Dr. Stoner Attending Physician: Dain Stoner MD History of Present Illness It was my pleasure to see Mr. Bill in consultation today September 28, 2019. He is a very pleasant yet very medically complex 78-year-old gentleman who follows closely with myself as an outpatient. He presents to [facility] on 09/27/2019 with complaints of chest pain and shortness of breath. The patient states he has been in his normal state of health lately and actually had a telemedicine visit with me on the third which time he was doing well. However this morning woke up with a sharp/pressure sensation across his left precordium and he felt short of breath. His became concerned and brought him into the emergency department for further evaluation. In the ER he was found to have volume overload on his chest CT and his blood pressure was significantly elevated with 200 mmHg systolic. He was given a dose of sublingual nitroglycerin by his and his chest pain resolved. He has not had any recurrences of his pain again overnight. He states he is been compliant with his medications as an outpatient as of late without any other issues. PAST MEDICAL HISTORY: 1. 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 Coronary artery disease status post PCI to the LAD on 2 separate occasions along with a PCI to the circumflex in the setting of a non ST segment elevation DE 3. History of PFO status post closure 4. History of GI bleed while on triple therapy 5. Stage 4 chronic kidney disease status post fistula not yet on dialysis 6. History of CVAs 7. GERD 8. Post-op lung transplant atrial fibrillation 9.Transientischemic cardiomyopathy status post LAD infarct EF 30 to 35%, resolved. Most recent EF of 55%. 10. Upper extremity DVT status post 3 months of warfarin anticoagulation Allergies Allergy/AdvReac Type Severity Reaction Status Date / Time levofloxacin Allergy Intermediate ANAPHYLAXIS Verified 09/27/19 14:18 oxycodone Allergy Intermediate ANAPHYLAXIS Verified 09/27/19 14:18 cat dander Allergy Unknown CHEST Verified 09/27/19 14:18 TIGHTNESS Home Medications Home Medications Medication Instructions Recorded Confirmed Type albuterol sulfate 2.5 mg CONTINUOUS NEBULIZATION BID 03/02/19 09/27/19 History ml clopidogrel 75 mg tablet 75 mg PO DAILY #30 tab 03/02/19 09/27/19 History doxazosin 4 mg tablet 8 mg PO HS tab 03/02/19 09/27/19 History fluoxetine 20 mg capsule 40 mg PO DAILY cap 03/02/19 09/27/19 History fluticasone 500 mcg-salmeterol 50 1 puffs INH Q12H 03/02/19 09/27/19 History mcg/dose blistr powdr for inhalation furosemide 40 mg tablet 40 mg PO DAILY #30 tab 03/02/19 09/27/19 History insulin lispro 100 unit/mL 0 - 140 sliding scale dose SUBCUT 03/02/19 09/27/19 History subcutaneous solution TID PRN ml magnesium chloride 71.5 mg 143 mg PO DAILY tab 03/02/19 09/27/19 History (magnesium chloride) tablet,delayed release montelukast 10 mg tablet 10 mg PO DAILY tab 03/02/19 09/27/19 History mycophenolate sodium 180 mg 180 mg PO BID tab 03/02/19 09/27/19 History tablet,delayed release pantoprazole 40 mg tablet,delayed 40 mg PO BID tab 03/02/19 09/27/19 History release rosuvastatin 40 mg tablet 40 mg PO HS #90 tab 03/02/19 09/27/19 History tacrolimus 0.5 mg capsule 0.5 mg PO BID cap 03/02/19 09/27/19 History acetaminophen [Tylenol Extra 500 mg PO Q6H PRN 04/21/19 09/27/19 History Strength] aspirin [Aspir-81] 81 mg PO DAILY 04/21/19 09/27/19 History azithromycin [Zithromax] 250 mg PO MOWEFR 04/21/19 09/27/19 History metoprolol succinate [Toprol XL] 100 mg PO DAILY 04/21/19 09/27/19 History omega-3 acid ethyl esters [Lovaza] 2 cap PO BID 04/21/19 09/27/19 History posaconazole [Noxafil] 300 mg PO DAILY 04/21/19 09/27/19 History prednisone 5 mg PO DAILY 04/21/19 09/27/19 History tobramycin 150 mg INHALATION Q12H 04/21/19 09/27/19 History cyclobenzaprine 5 mg tablet 5 mg PO TID PRN 07/04/19 09/27/19 History sodium bicarbonate 650 mg tablet 1,300 mg PO TID #60 tab 07/04/19 09/27/19 History acyclovir 400 mg PO BID 09/27/19 09/27/19 History darbepoetin nicholas in polysorbat 60 mcg SUBCUT MO 09/27/19 09/27/19 History [Aranesp (in polysorbate)] sulfamethoxazole-trimethoprim 1 tab PO MOTH 09/27/19 09/27/19 History [Bactrim] Patient History Medical History Arthritis (Chronic) Chronic a-fib (Chronic) Chronic anemia (Chronic) Chronic diarrhea PT HAS BEEN SEEN AND EVALUATED BY GI FOR C-DIFF (NEGATIVE). GI CONCERNED AND FEELS SCOPE IS NECESSARY CKD (chronic kidney disease) stage 5, GFR less than 15 ml/min (Chronic) Diabetes mellitus, type II (Chronic) GERD (gastroesophageal reflux disease) (Chronic) Glaucoma (Chronic) H/O: CVA (cerebrovascular accident) (Chronic) HLD (hyperlipidemia) (Chronic) HTN (hypertension) (Chronic) Hyperglycemia (Chronic) Hyperparathyroidism (Chronic) Idiopathic pulmonary fibrosis (Chronic) Mood disorder (Chronic) Myocardial infarction (Acute) Paroxysmal atrial fibrillation (Chronic) Renal lesion Squamous cell carcinoma of skin of scalp (Chronic) Thrombocytopenia (Chronic) Surgical History History of cardiac cath STENTS X2 MAY 2018 (SEE [facility] RECORD ) Hx of heart artery stent (Chronic) S/P MITCHELL to LAD and circumflex after NSTEMI in 05/2018 Lung transplant status (Chronic) S/P patent foramen ovale closure (Resolved) Family History Father , in his seventies of cancer No problems noted. Mother , age 88 of CHF No problems noted. Daughter Age: 46 No problems noted. Son Age: 45 No problems noted. Other No significant family history Social History Preferred Language: Bangladeshi Communication Ability: Effective Internet Application Developer Required: No Beliefs That Will Affect Care: None marital status: Current Living Situation: Spouse current occupational status: retired Other Information That Helps Us Care for You: No Feels Safe at Home: Yes Safety Concerns: Feels Safe At This Time Smoking Status: Former smoker Tobacco Type: cigarettes ; Cigarettes Per Day: HX OF BRIEF SOCIAL USE WHILE IN , QUIT 45 YEARS AGO ; Second Hand Exposure: No ; Hx Alcohol Use: Yes (few drinks a week) Alcohol type: hard liquor Hx Substance Use: No caffeine: Yes (1 cup in am) Review of Systems Review of Systems: All systems reviewed & are unremarkable except as noted in HPI & below Physical Exam Physical Exam: General: Awake, alert and oriented x 3. No acute distress. HEENT: Normocephalic, atraumatic. Pupils equal, round and reactive to light and accommodation. Extraocular muscles are intact. Anicteric sclera. Moist mucous membranes. Neck: No JVD. No bruit. Cardiovascular: Regular. Positive S-4. Normal S-1 and S-2. No S-3. No murmurs or rubs. Pulmonary: Poor air movement on the right with scattered crackles at the left base. Abdomen: Bowel sounds x 4, soft. No rebound, guarding or tenderness. No organomegaly. Extremities: No clubbing, cyanosis or edema. +2 pedal pulses bilaterally. Skin: Warm and dry. Results & Data ([facility]) Vital Signs (Past 12 Hours) Vital Signs Temp Pulse Pulse Resp BP BP Pulse Ox 09/28/19 12:29 76 160/68 H 09/28/19 11:00 36.6 C 60 16 168/85 H 97 09/28/19 10:51 66 18 97 09/28/19 08:00 55 L 09/28/19 07:14 36.1 C L 55 L 19 187/80 H 100 09/28/19 07:00 58 L 18 98 09/28/19 04:20 36.8 C 55 L 20 174/72 H 98 (1) Chest pain Chest pain type: precordial pain Qualified Code(s): R07.2 - Precordial pain (2) Deep vein thrombosis (DVT) of brachial vein of right upper extremity Chronicity: acute Qualified Code(s): I82.621 - Acute embolism and thrombosis of deep veins of right upper extremity
--- NOTE | 2019-09-28 15:04 | Pharmacy Report ---
Pharmacy Abx Dose Short Note - Date of Service September 28, 2019 - Assessment & Plan Assessment * Mr Bill is a 78 year old M receiving Vanc/Zosyn for treatment of pneumonia. * PMH is significant for DM, CKD, CHF, pulmonary fibrosis, s/p lung transplant in 2012, immunosuppressant medications. * MRSA nasal swab negative, blood cultures pending * Will dose vancomycin based upon random levels for now, in the setting of significant renal impairment. Plan Vancomycin * Vanc 2000mg x1 dose in ED * Random level this mornin.7 mcg/mL indicated that patient was ready for a re-dose * Vanc 1000mg x1 dose this morning * Will assess another random level with AM labs tomorrow and re-dose when appropriate. * Goal trough level for pulmonary infection: 15-20 mcg/mL Zosyn 3.375gm IV x1 dose over 30 min, then 3.375gm IV q12h (as recommended for CrCl <20mL/min) Pharmacy will continue to follow and will adjust dose/frequency as necessary. Thank you.
--- NOTE | 2019-09-28 16:06 | Nephrology Consultation ---
Date of Consultation September 28, 2019 Assessment & Plan (1) ADEEL (acute kidney injury): Non-oliguric. Metabolic profile otherwise within normal limits. Volume status acceptable. No emergent indication for dialysis. Agree with continued use of furosemide to encourage a net negative fluid balance . Restart furosemide 40 mg daily and monitor. Elevation in serum creatinine likely secondary to accelerated hypertension. BP has improved with diuresis and adjustment in antihypertensives. Appreciated cardiology consultation. (2) CKD (chronic kidney disease): Baseline creatinine 3.5 mg/dL. Follows with Dr. Sterling. AVF mature for use. (3) Anemia secondary to renal failure: Hgb stable. On FELICIANO as outpatient. Elevated MCV, may benefit from B vitamin supplementation. (4) Lung transplant status: No emergent indication to check [place] level at this time. History of Present Illness Reason for Consultation: AK/CKD Attending Physician: Dain Stoner MD History of Present Illness Mr. Shaun Bill is a 78-year-old male with CKD IV-V. He follows in the nephrology clinic with Dr. Sterling. Shaun was most recently seen in the clinic in June. Baseline creatinine has been ~3.4 mg/dL. Metabolic profile has been acceptable otherwise. He has a mature AVF which was placed by Dr. Oconnell in May 2017. He has not required dialysis. 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 CKD has been attributed to a history of ATN as well as microvascular disease and calcineurin inhibitor nephropathy. Complications of his chronic kidney disease including anemia requiring FELICIANO therapy, as well as secondary hyperparathyroidism. Medical history is notable for IPF. 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 He has a right rincon lung. Immunotherapy includes MMF, prograf, and prednisone. Post transplant complications include recurrent pneumonia. 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 Shaun also has diabetes mellitus (no retinopathy or neuropathy), hypertension, a history of C diff colitis, facial SCC, as well as coronary artery disease. In April 2018, he underwent PCI with MITCHELL placement to LAD and circumflex. He presented to [facility] in September 2018 with a STEMI and was taken to the cardiac catheterization with findings of a 99% subtotal occlusion of the mid LAD just distal to the previously placed stent. He underwent successful PCI of the mid LAD receiving a single drug-eluting stent that overlapped with the distal aspect of the prior mid LAD stent. A 50% ostial RCA stenosis was noted. On 10/08 he had recurrent chest discomfort, this prompted repeat cardiac catheterization on 10/08/2018 with findings of widely patent prior LAD stents and 50% ostial RCA stenosis unchanged compared to the prior procedure on 10/04/2018. Shaun developed progressive shortness of breath during his hospital stay ultimately prompting transfer to [facility] where his prior lung transplant took place on 10/12/2018. He was hospitalized at [facility] from 10/12/2018 until 10/17/2018. Medical history is also notable for an UE DVT. Follow up evaluation obtained during this admission demonstrated nearly occlusive to occlusive deep venous thrombosis identified within branches of the brachial vein. Also of note are occlusive superficial venous thrombus is present within the cephalic vein in the antecubital fossa extending into the forearm. AVF is narrow in diameter but patent. Shaun presented to [facility] yesterday after experiencing a sudden onset of chest pain and shortness of breath. He was found to have accelerated hypertension. No acute EKG changes noted. CT chest demonstrated ground glass consolidation is throughout the left lung as well as small to moderate pleural effusions, left larger than right, and advanced interstitial lung disease in the right lung. I saw Shaun yesterday evening. The patient was re-evaluated this morning. He has symptomatically improved following IV furosemide 80 mg yesterday as well as adjustment of antihypertensives including amlodipine. He has been placed on a heparin gtt. Allergies Allergy/AdvReac Type Severity Reaction Status Date / Time levofloxacin Allergy Intermediate ANAPHYLAXIS Verified 09/27/19 14:18 oxycodone Allergy Intermediate ANAPHYLAXIS Verified 09/27/19 14:18 cat dander Allergy Unknown CHEST Verified 09/27/19 14:18 TIGHTNESS Home Medications Home Medications Medication Instructions Recorded Confirmed Type albuterol sulfate 2.5 mg CONTINUOUS NEBULIZATION BID 03/02/19 09/27/19 History ml clopidogrel 75 mg tablet 75 mg PO DAILY #30 tab 03/02/19 09/27/19 History doxazosin 4 mg tablet 8 mg PO HS tab 03/02/19 09/27/19 History fluoxetine 20 mg capsule 40 mg PO DAILY cap 03/02/19 09/27/19 History fluticasone 500 mcg-salmeterol 50 1 puffs INH Q12H 03/02/19 09/27/19 History mcg/dose blistr powdr for inhalation furosemide 40 mg tablet 40 mg PO DAILY #30 tab 03/02/19 09/27/19 History insulin lispro 100 unit/mL 0 - 140 sliding scale dose SUBCUT 03/02/19 09/27/19 History subcutaneous solution TID PRN ml magnesium chloride 71.5 mg 143 mg PO DAILY tab 03/02/19 09/27/19 History (magnesium chloride) tablet,delayed release montelukast 10 mg tablet 10 mg PO DAILY tab 03/02/19 09/27/19 History mycophenolate sodium 180 mg 180 mg PO BID tab 03/02/19 09/27/19 History tablet,delayed release pantoprazole 40 mg tablet,delayed 40 mg PO BID tab 03/02/19 09/27/19 History release rosuvastatin 40 mg tablet 40 mg PO HS #90 tab 03/02/19 09/27/19 History tacrolimus 0.5 mg capsule 0.5 mg PO BID cap 03/02/19 09/27/19 History acetaminophen [Tylenol Extra 500 mg PO Q6H PRN 04/21/19 09/27/19 History Strength] aspirin [Aspir-81] 81 mg PO DAILY 04/21/19 09/27/19 History azithromycin [Zithromax] 250 mg PO MOWEFR 04/21/19 09/27/19 History metoprolol succinate [Toprol XL] 100 mg PO DAILY 04/21/19 09/27/19 History omega-3 acid ethyl esters [Lovaza] 2 cap PO BID 04/21/19 09/27/19 History posaconazole [Noxafil] 300 mg PO DAILY 04/21/19 09/27/19 History prednisone 5 mg PO DAILY 04/21/19 09/27/19 History tobramycin 150 mg INHALATION Q12H 04/21/19 09/27/19 History cyclobenzaprine 5 mg tablet 5 mg PO TID PRN 07/04/19 09/27/19 History sodium bicarbonate 650 mg tablet 1,300 mg PO TID #60 tab 07/04/19 09/27/19 History acyclovir 400 mg PO BID 09/27/19 09/27/19 History darbepoetin nicholas in polysorbat 60 mcg SUBCUT MO 09/27/19 09/27/19 History [Aranesp (in polysorbate)] sulfamethoxazole-trimethoprim 1 tab PO MOTH 09/27/19 09/27/19 History [Bactrim] Patient History Medical History Arthritis (Chronic) Chronic a-fib (Chronic) Chronic anemia (Chronic) Chronic diarrhea PT HAS BEEN SEEN AND EVALUATED BY GI FOR C-DIFF (NEGATIVE). 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 Mother , age 88 of CHF No problems noted. Daughter Age: 46 No problems noted. Son Age: 45 No problems noted. Other No significant family history Social History Preferred Language: Khmer Communication Ability: Effective Stop Attacher Required: No Beliefs That Will Affect Care: None marital status: Current Living Situation: Spouse current occupational status: retired Other Information That Helps Us Care for You: No Feels Safe at Home: Yes Safety Concerns: Feels Safe At This Time Smoking Status: Former smoker Tobacco Type: cigarettes ; Cigarettes Per Day: HX OF BRIEF SOCIAL USE WHILE IN , QUIT 45 YEARS AGO ; Second Hand Exposure: No ; Hx Alcohol Use: Yes (few drinks a week) Alcohol type: hard liquor Hx Substance Use: No caffeine: Yes (1 cup in am) Review of Systems Review of Systems: All systems reviewed & are unremarkable except as noted in HPI & below Physical Exam Physical Exam: Limited due to COVID pandemic. Constitutional: well developed; no acute distress Eyes: + anicteric sclerae ENMT: Mouth: oral mucous membranes not dry Neck: normal visual inspection and trachea midline Respiratory: normal respiratory effort Cardiovascular: Vessels: no JVD Extremities: + AV fistula Skin: + turgor decreased Results & Data Vital Signs (Past 12 Hours) Vital Signs Temp Pulse Pulse Resp BP BP Pulse Ox 09/28/19 15:46 36.7 C 58 L 19 132/76 99 09/28/19 15:20 65 09/28/19 15:13 61 14 99 09/28/19 12:29 76 160/68 H 09/28/19 11:00 36.6 C 60 16 168/85 H 97 09/28/19 10:51 66 18 97 09/28/19 08:00 55 L 09/28/19 07:14 36.1 C L 55 L 19 187/80 H 100 09/28/19 07:00 58 L 18 98 09/28/19 04:20 36.8 C 55 L 20 174/72 H 98 Laboratory Results Laboratory Results - last 24 hr 09/27/19 09/27/19 09/27/19 12:55 18:00 18:00 WBC RBC Hgb Hct MCV MCH MCHC RDW Std Deviation RDW Coeff of Ros Plt Count MPV Immature Gran % (Auto) Neut % (Auto) Lymph % (Auto) Elliott % (Auto) Eos % (Auto) Baso % (Auto) Immature Gran # (Auto) Neut # (Auto) Lymph # (Auto) Elliott # (Auto) Eos # (Auto) Baso # (Auto) Macrocytosis Ovalocytes APTT PTT Ratio Sodium Potassium Chloride Carbon Dioxide Anion Gap BUN Creatinine Est Cr Clr Drug Dosing Est GFR ( Amer) Est GFR (Non-Af Amer) BUN/Creatinine Ratio Glucose POC Glucose Estimat Average Glucose Hemoglobin A1c Calcium Phosphorus Magnesium Troponin I Procalcitonin 2.56 H Urine Color Yellow Urine Appearance Clear Urine pH 6.5 Ur Specific [place] 1.021 Urine Protein 3+ H Urine Glucose (UA) Negative Urine Ketones Negative Urine Blood Negative Urine Nitrite Negative Urine Bilirubin Negative Urine Urobilinogen Negative Ur Leukocyte Esterase Negative Urine WBC (Auto) 1-5 Urine RBC (Auto) 0-4 U Hyaline Cast (Auto) 1-5 U Epithel Cells (Auto) 20-30 H Urine Bacteria (Auto) Negative Nasal Screen MRSA (PCR) Negative Random Vancomycin Mycophenolic Acid MPA Glucuronide Tacrolimus Hep Bs Antigen Hep Bs Antibody Hep Bs Antibody, Quant 09/27/19 09/27/19 09/27/19 18:39 18:39 20:04 WBC RBC Hgb Hct MCV MCH MCHC RDW Std Deviation RDW Coeff of Ros Plt Count MPV Immature Gran % (Auto) Neut % (Auto) Lymph % (Auto) Elliott % (Auto) Eos % (Auto) Baso % (Auto) Immature Gran # (Auto) Neut # (Auto) Lymph # (Auto) Elliott # (Auto) Eos # (Auto) Baso # (Auto) Macrocytosis Ovalocytes APTT PTT Ratio Sodium Potassium Chloride Carbon Dioxide Anion Gap BUN Creatinine Est Cr Clr Drug Dosing Est GFR ( Amer) Est GFR (Non-Af Amer) BUN/Creatinine Ratio Glucose POC Glucose Estimat Average Glucose Hemoglobin A1c Calcium Phosphorus Magnesium Troponin I 0.074 H* Procalcitonin Urine Color Urine Appearance Urine pH Ur Specific [place] Urine Protein Urine Glucose (UA) Urine Ketones Urine Blood Urine Nitrite Urine Bilirubin Urine Urobilinogen Ur Leukocyte Esterase Urine WBC (Auto) Urine RBC (Auto) U Hyaline Cast (Auto) U Epithel Cells (Auto) Urine Bacteria (Auto) Nasal Screen MRSA (PCR) Random Vancomycin Mycophenolic Acid Pending MPA Glucuronide Pending Tacrolimus Hep Bs Antigen Hep Bs Antibody Hep Bs Antibody, Quant 09/27/19 09/27/19 09/28/19 20:08 22:21 03:41 WBC RBC Hgb Hct MCV MCH MCHC RDW Std Deviation RDW Coeff of Ros Plt Count MPV Immature Gran % (Auto) Neut % (Auto) Lymph % (Auto) Elliott % (Auto) Eos % (Auto) Baso % (Auto) Immature Gran # (Auto) Neut # (Auto) Lymph # (Auto) Elliott # (Auto) Eos # (Auto) Baso # (Auto) Macrocytosis Ovalocytes APTT PTT Ratio Sodium 139 Potassium 4.1 Chloride 107 Carbon Dioxide 26 Anion Gap 6.0 BUN 39 H Creatinine 4.02 H Est Cr Clr Drug Dosing 17.4 Est GFR ( Amer) 15.6 Est GFR (Non-Af Amer) 13.4 BUN/Creatinine Ratio 9.8 L Glucose 142 H POC Glucose 137 H Estimat Average Glucose 111 Hemoglobin A1c 5.5 Calcium 9.2 Phosphorus 2.8 Magnesium 1.8 Troponin I 0.063 H* Procalcitonin Urine Color Urine Appearance Urine pH Ur Specific [place] Urine Protein Urine Glucose (UA) Urine Ketones Urine Blood Urine Nitrite Urine Bilirubin Urine Urobilinogen Ur Leukocyte Esterase Urine WBC (Auto) Urine RBC (Auto) U Hyaline Cast (Auto) U Epithel Cells (Auto) Urine Bacteria (Auto) Nasal Screen MRSA (PCR) Random Vancomycin Mycophenolic Acid MPA Glucuronide Tacrolimus Hep Bs Antigen Hep Bs Antibody Hep Bs Antibody, Quant 09/28/19 09/28/19 09/28/19 03:41 03:41 03:41 WBC 8.08 RBC 2.82 L Hgb 10.2 L Hct 31.1 L MCV 110.3 H MCH 36.2 H MCHC 32.8 RDW Std Deviation 58.7 H RDW Coeff of Ros 14.8 H Plt Count 176 MPV 12.2 H Immature Gran % (Auto) 0.2 Neut % (Auto) 76.7 Lymph % (Auto) 5.4 Elliott % (Auto) 12.6 Eos % (Auto) 4.7 Baso % (Auto) 0.4 Immature Gran # (Auto) 0.02 Neut # (Auto) 6.19 Lymph # (Auto) 0.44 L Elliott # (Auto) 1.02 H Eos # (Auto) 0.38 Baso # (Auto) 0.03 Macrocytosis Present Ovalocytes 1+ APTT PTT Ratio Sodium 138 Potassium 3.9 Chloride 106 Carbon Dioxide 27 Anion Gap 5.0 BUN 38 H Creatinine 3.88 H Est Cr Clr Drug Dosing 18.0 Est GFR ( Amer) 16.3 Est GFR (Non-Af Amer) 14.0 BUN/Creatinine Ratio 9.7 L Glucose 137 H POC Glucose Estimat Average Glucose Hemoglobin A1c Calcium 8.9 Phosphorus Magnesium 1.7 L Troponin I Cancelled 0.079 H* Procalcitonin Urine Color Urine Appearance Urine pH Ur Specific [place] Urine Protein Urine Glucose (UA) Urine Ketones Urine Blood Urine Nitrite Urine Bilirubin Urine Urobilinogen Ur Leukocyte Esterase Urine WBC (Auto) Urine RBC (Auto) U Hyaline Cast (Auto) U Epithel Cells (Auto) Urine Bacteria (Auto) Nasal Screen MRSA (PCR) Random Vancomycin Mycophenolic Acid MPA Glucuronide Tacrolimus Hep Bs Antigen Hep Bs Antibody Hep Bs Antibody, Quant 09/28/19 09/28/19 09/28/19 03:41 03:41 07:28 WBC RBC Hgb Hct MCV MCH MCHC RDW Std Deviation RDW Coeff of Ros Plt Count MPV Immature Gran % (Auto) Neut % (Auto) Lymph % (Auto) Elliott % (Auto) Eos % (Auto) Baso % (Auto) Immature Gran # (Auto) Neut # (Auto) Lymph # (Auto) Elliott # (Auto) Eos # (Auto) Baso # (Auto) Macrocytosis Ovalocytes APTT 117.0 H* PTT Ratio 4.2 Sodium Potassium Chloride Carbon Dioxide Anion Gap BUN Creatinine Est Cr Clr Drug Dosing Est GFR ( Amer) Est GFR (Non-Af Amer) BUN/Creatinine Ratio Glucose POC Glucose 133 H Estimat Average Glucose Hemoglobin A1c Calcium Phosphorus Magnesium Troponin I Procalcitonin Urine Color Urine Appearance Urine pH Ur Specific [place] Urine Protein Urine Glucose (UA) Urine Ketones Urine Blood Urine Nitrite Urine Bilirubin Urine Urobilinogen Ur Leukocyte Esterase Urine WBC (Auto) Urine RBC (Auto) U Hyaline Cast (Auto) U Epithel Cells (Auto) Urine Bacteria (Auto) Nasal Screen MRSA (PCR) Random Vancomycin 15.7 Mycophenolic Acid MPA Glucuronide Tacrolimus Hep Bs Antigen Hep Bs Antibody Hep Bs Antibody, Quant 09/28/19 09/28/19 09/28/19 11:01 11:01 11:14 WBC RBC Hgb Hct MCV MCH MCHC RDW Std Deviation RDW Coeff of Ros Plt Count MPV Immature Gran % (Auto) Neut % (Auto) Lymph % (Auto) Elliott % (Auto) Eos % (Auto) Baso % (Auto) Immature Gran # (Auto) Neut # (Auto) Lymph # (Auto) Elliott # (Auto) Eos # (Auto) Baso # (Auto) Macrocytosis Ovalocytes APTT 97.2 H* PTT Ratio 3.5 Sodium Potassium Chloride Carbon Dioxide Anion Gap BUN Creatinine Est Cr Clr Drug Dosing Est GFR ( Amer) Est GFR (Non-Af Amer) BUN/Creatinine Ratio Glucose POC Glucose 129 H Estimat Average Glucose Hemoglobin A1c Calcium Phosphorus Magnesium Troponin I Procalcitonin Urine Color Urine Appearance Urine pH Ur Specific [place] Urine Protein Urine Glucose (UA) Urine Ketones Urine Blood Urine Nitrite Urine Bilirubin Urine Urobilinogen Ur Leukocyte Esterase Urine WBC (Auto) Urine RBC (Auto) U Hyaline Cast (Auto) U Epithel Cells (Auto) Urine Bacteria (Auto) Nasal Screen MRSA (PCR) Random Vancomycin Mycophenolic Acid MPA Glucuronide Tacrolimus Hep Bs Antigen Neg Hep Bs Antibody Non-Immune Hep Bs Antibody, Quant < 3.10 L 09/28/19 16:18 WBC RBC Hgb Hct MCV MCH MCHC RDW Std Deviation RDW Coeff of Ros Plt Count MPV Immature Gran % (Auto) Neut % (Auto) Lymph % (Auto) Elliott % (Auto) Eos % (Auto) Baso % (Auto) Immature Gran # (Auto) Neut # (Auto) Lymph # (Auto) Elliott # (Auto) Eos # (Auto) Baso # (Auto) Macrocytosis Ovalocytes APTT PTT Ratio Sodium Potassium Chloride Carbon Dioxide Anion Gap BUN Creatinine Est Cr Clr Drug Dosing Est GFR ( Amer) Est GFR (Non-Af Amer) BUN/Creatinine Ratio Glucose POC Glucose 151 H Estimat Average Glucose Hemoglobin A1c Calcium Phosphorus Magnesium Troponin I Procalcitonin Urine Color Urine Appearance Urine pH Ur Specific [place] Urine Protein Urine Glucose (UA) Urine Ketones Urine Blood Urine Nitrite Urine Bilirubin Urine Urobilinogen Ur Leukocyte Esterase Urine WBC (Auto) Urine RBC (Auto) U Hyaline Cast (Auto) U Epithel Cells (Auto) Urine Bacteria (Auto) Nasal Screen MRSA (PCR) Random Vancomycin Mycophenolic Acid MPA Glucuronide Tacrolimus Hep Bs Antigen Hep Bs Antibody Hep Bs Antibody, Quant PG Care Time/CCT Total # of Minutes Spent Total Time Spent with Patient: Total time spent is greater than 50% in coordination of care (as documented) at patient's floor/unit and/or counseling patient: Coding Level of Care Code 57981 Inpt Consult Level 4 Diagnoses ADEEL (acute kidney injury) N17.9 CKD (chronic kidney disease) N18.9 Chronic kidney disease stage: unspecified stage Anemia secondary to renal failure D63.1 Lung transplant status Z94.2 (1) CKD (chronic kidney disease) Chronic kidney disease stage: unspecified stage Qualified Code(s): N18.9 - Chronic kidney disease, unspecified
[2019-09-28] MEDS ORDERED: FUROSEMIDE 40 MG in SYRINGE 0 ML IV ONE (17:21)
[2019-09-28 17:45] LABS: Partial Thromboplastin Ratio 1.6; Partial Thromboplastin Time 44.7 Seconds (21.0-31.0)
[2019-09-28] MEDS ORDERED: HEPARIN IV BOLUS 3,000 UNITS in SYRINGE 0 ML IV ONE (18:15)
[2019-09-28] MEDS: ROSUVASTATIN CALCIUM 20 MG TAB PO SCH (21:22)
[2019-09-28] MEDS: MONTELUKAST SODIUM 10 MG TABLET PO SCH (21:22)
[2019-09-28] MEDS: DOXAZosin MESYLATE 4 MG TAB PO SCH (21:22)
[2019-09-29 00:57] LABS: Partial Thromboplastin Ratio 4.1
[2019-09-29 01:03] LABS: Partial Thromboplastin Time 113.3 Seconds (21.0-31.0)
[2019-09-29] MEDS: [UNRECOGNIZED DRUG - OTHER] SCH ×3 (01:25→17:02)
[2019-09-29] MEDS: PIPERACILLIN/TAZOBACTAM 3.375 GM in DEXTROSE 5% 100 ML IV SCH ×2 (02:44→14:44)
[2019-09-29] MEDS: ALBUT/IPRATROP 3MG/0.5MG NEB 3 ML VIAL NEB SCH ×4 (07:11→19:01)
[2019-09-29] MEDS: TOBRAMYCIN SULFATE INH SCH ×2 (07:11→19:00)
[2019-09-29] MEDS: INSULIN ASPART 100 UNITS/ML 3 ML PEN SC SCH ×4 (08:05→21:50)
[2019-09-29] MEDS: FLUTICASONE/VILANTEROL 200/25MCG 14 PUFFS/INHALER INH SCH (08:06)
[2019-09-29] MEDS: TACROLIMUS 0.5 MG CAP PO SCH ×2 (08:11→21:00)
[2019-09-29] MEDS: ACYCLOVIR 400 MG TAB PO SCH ×2 (08:11→21:01)
[2019-09-29] MEDS: PANTOprazole 40 MG TAB PO SCH ×2 (08:11→21:00)
[2019-09-29] MEDS: MYCOPHENOLATE SODIUM 180 MG TAB PO SCH ×2 (08:11→21:00)
[2019-09-29] MEDS: CLOPIDOGREL BISULFATE 75 MG TAB PO SCH (08:12)
[2019-09-29] MEDS: FLUOXETINE HCL 20 MG CAP PO SCH (08:12)
[2019-09-29] MEDS: AMLODIPINE BESYLATE 5 MG TAB PO SCH (08:12)
[2019-09-29] MEDS: METOPROLOL SUCC 50MG EXT REL TAB PO SCH (08:12)
[2019-09-29] MEDS: MAGNESIUM CHLORIDE 64MG DELAYED REL TAB PO SCH (08:12)
[2019-09-29] MEDS: OMEGA-3 (PURIFIED FISH OIL) 1 GM CAP PO SCH ×2 (08:13→21:00)
[2019-09-29] MEDS: predniSONE 5 MG TAB PO SCH (08:13)
[2019-09-29 08:38] LABS: Albumin Level 2.8 gm/dl (3.4-5.0); BUN Creatinine Ratio 10.2 (10-20); Calcium 8.6 mg/dl (8.5-10.1); Est GFR (African American) 15.8; Est GFR (Non-African American) 13.6; Magnesium 1.8 mg/dl (1.8-2.4); Potassium 3.6 mmol/L (3.5-5.1)
[2019-09-29 08:43] LABS: Partial Thromboplastin Ratio 2.5
[2019-09-29 08:47] LABS: Phosphorus 3.4 mg/dl (2.5-4.9)
[2019-09-29 08:49] LABS: Partial Thromboplastin Time 69.3 Seconds (21.0-31.0)
[2019-09-29] MEDS ORDERED: FUROSEMIDE 40 MG TAB PO SCH (09:00)
[2019-09-29] MEDS: SODIUM BICARBONATE 650 MG TAB PO SCH ×3 (09:34→21:01)
--- NOTE | 2019-09-29 09:48 | Hospitalist Progress Note ---
Date of Service September 29, 2019 Assessment & Plan (1) Chest pain: likely secondary to Hypertensive urgency, not ACS - CP resolved on admission - trop. mildly elevated (chronic) in setting of CKD - echo ordered and reviewed w/ cardiology, appreciate their input - pt initially received prn hydralazine and IV lasix - now started on amlodipine - BP improved but still hypertensive, hydralazine 10 mg every 8 hours initiated - no recurrent complaint of chest pain (2) Hypoxia: (3) CHF (congestive heart failure): Acute hypoxic respiratory failure - multiple etiologies Pulmonary edema in setting of hypertensive urgency Acute on chronic systolic HF Concern for poss. 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 difficile colitis (recurrent) who presented to ED secondary to chest pain and shortness of breath. Initially on 6L of suppl. O2 via EMS, then down to 3L of suppl. O2 in the ED. Chest pain has resolved with nitro per pt. Hypoxic requiring 3L of O2 via NC. 1st troponin elevated at .070, which is baseline for pt. No ST or t wave changes noted on EKG Pt significantly hypertensive in setting of ESRD. Chest CT: 1. Cardiomegaly. Intralobular septal thickening throughout the left lung suggests a component of congestive failure. 2. Groundglass consolidation is seen throughout the left lung. This could represent pulmonary edema and/or an infectious/inflammatory pneumonitis. Clinical correlation will be essential. 3. Small to moderate pleural effusions, left larger than right. 4. Changes of advanced interstitial lung disease are present in the right lung with evidence of previous surgery. Sx likely in setting of acute on chronic CHF with pulmonary edema (pt with hx of HFrEF with a repeat echo 12/29/2018 showing return of normal EF 55%) Gave Lasix 80mg IV on admission and x2 the next day Cardiology and nephrology consulted Spoke with Dr. Hansen (Pulmonary) to discuss CT results - Feels likely etiology Pulm edema in setting of HTN urgency vs infectious pneumonitis in setting of immunosuppression. Pt low risk for dat novel COVID due to no known exposure and pt has been at home. Ground glass opacities also seen on previous CT. Recommending starting broad spectrum antibiotics Started Vanco/zosyn - given pt is improving and his med. hx, recommend 7-10 days of Abx therapy sputum culture - ordered Clinically patient much improved, currently on room air, also not hypoxic with ambulation [facility] lung transplant center contacted, discussed with Dr. Lyndon Washington, who is aware about patient's admission Per nephrology, now on 80 mg p.o. Lasix twice daily RUE Brachial vein DVT - prior hx of RUE DVT, and b/l LE DVT - most recently treated for 3 months w/ warfarin - started on IV heparin - given pt is on ASA and plavix and has prior hx of GI bleed, will d/c ASA (discussed w/ cardiology) - plan for initiation of warfarin, discussed this with pharmacy, lung transplant physician at [facility], as well as cardiology and nephrology here at [facility] -Monitor for bleeding (4) CKD (chronic kidney disease) stage 5, GFR less than 15 ml/min: Patient with acute on chronic CKD stage V Baseline creatinine 3.5, he does have matured AV fistula BUN/creatinine 40 and 4.08 Consulted nephrology, Dr. Burnett - case discussed on admission gave IV lasix 80mg x 1 on admission and x2 the next day Plan to start Lasix 80 mg twice daily per nephrology (5) HTN (hypertension): Hypertensive URGENCY Patient significantly hypertensive in ED Likely in setting of volume overload, end-stage renal disease, and CHF IV Lasix 80 mg and prn hydralazine on admission continue metoprolol and cardura Started amlodipine - pt's BP improved, but patient still hypertensive, hydrala zine 10 mg 3 times daily initiated (6) Hypomagnesemia: received 1g IV mag sulfated in ED monitor and replete as needed (7) Diabetes mellitus, type II: Last A1C in [place] 5.5 09/2018 obtain A1C in a.m. insulin sliding scale per protocol (8) Idiopathic pulmonary fibrosis: History of left lung transplant in 2012 On tacrolimus, mycophenolate and prednisone Check tacrolimus and mycophenolate levels Continue Advair, tobramycin neb lower threshold to consult pulm if no improvement with diuresis (9) Lung transplant status: History of left lung transplant in 2013 On tacrolimus, mycophenolate and prednisone Check tacrolimus and mycophenolate levels Continue Advair, tobramycin neb Transplant Center at [facility] contacted (10) Paroxysmal atrial fibrillation: hx of pAFib/ Aflutter off OAC due to hx of GIB continue metoprolol - now on IV heparin for RUE DVT, plan to start PO AC (11) Hyperparathyroidism: continue calcitriol (12) Chronic anemia: H/H stable at 10/30.8 on aranesp weekly (13) HLD (hyperlipidemia): continue lovaza (14) DVT prophylaxis: SQ Heparin Disposition: admit to PCU Follow up: PCP Dr. Lindo upon discharge Admission and Anticipated Discharge Date Admission Date: September 27, 2019 Subjective Patient sitting up in chair, eating, in no acute distress, breathing comfortably on room air. Denies any chest pain, shortness of breath, fevers, chills, abdominal pain, nausea or vomiting. He is inquiring about going home. Concerned that patient is still dyspneic on slight exertion, he was not hypoxic with ambulation. Patient is on IV heparin, plan to start a small dose of warfarin today. This was discussed with pharmacy, lung transplant physician at [facility], as well as cardiology and nephrology consulted here at [facility]. For nephrology, started p.o. Lasix 80 mg twice daily. Patient hypertensive today, despite starting amlodipine, hydralazine initiated 10 mg 3 times daily. Review of Systems Review of Systems: All systems reviewed & are unremarkable except as noted in HPI & below Constitutional: no fever and no chills Respiratory: + cough (dry/ improved) and + dyspnea on exertion; no dyspnea Cardiovascular: no chest pain, no palpitations and no edema Gastrointestinal: no abdominal pain, no nausea and no vomiting Physical Exam Physical Exam: Constitutional: Chronically ill-appearing elderly male, sitting up in bed, in NAD, breathing comfortably on room air Head: Normocephalic, Atraumatic Eyes: PERRL, conjunctivae normal, anicteric sclerae ENMT: external ear and nose normal, oropharynx normal Neck: trachea midline, no thyromegaly normal visual inspection Respiratory: normal respiratory effort, mild bibasilar rhonchi. crackles, no wheezing, no accessory muscle use Cardiovascular: regular, soft syst. murmur, no edema Vessels: no JVD appreciated or carotid bruit , right radial AV fistula Chest: normal inspection of chest Abdomen: normal bowel sounds, soft, nontender, nondistended Musculoskeletal: no cyanosis or clubbing, extremities motor strength 5/5, moves extremities spontaneously Skin: no rashes, warm and dry normal turgor Neurologic: PERRL, EOMI, accommodation nl, no face palsy, no dysarthria CN's II-XI intact bilaterally and moves all extremities Psychiatric: A+Ox3, euthymic affect Results & Data Results & Data ([facility]) Vital Signs (Past 12 Hours) Vital Signs Temp Pulse Pulse Resp BP Pulse Ox 09/29/19 08:17 36.5 C 66 22 176/76 H 96 09/29/19 07:45 69 09/29/19 07:41 36.2 C L 66 16 176/76 H 96 09/29/19 07:15 68 20 96 09/29/19 04:05 36.4 C L 78 24 156/85 H 93 09/28/19 23:36 36.4 C L 85 22 137/75 95 Laboratory Results 09/29/19 09/29/19 09/29/19 Range/Units 08:01 07:53 07:53 APTT 69.3 H* (21.0-31.0) Seconds PTT Ratio 2.5 Sodium 139 (136-145) mmol/L Potassium 3.6 (3.5-5.1) mmol/L Chloride 104 (98-107) mmol/L Carbon Dioxide 26 (21-32) mmol/L Anion Gap 9.0 (3-11) BUN 40 H (7-18) mg/dl Creatinine 3.97 H (0.6-1.4) mg/dl Est Cr Clr Drug Dosing 17.0 ml/min Est GFR ( Amer) 15.8 Est GFR (Non-Af Amer) 13.6 BUN/Creatinine Ratio 10.2 (10-20) Glucose 107 H (70-99) mg/dl POC Glucose (70-99) mg/dl Calcium 8.6 (8.5-10.1) mg/dl Phosphorus 3.4 (2.5-4.9) mg/dl Magnesium 1.8 (1.8-2.4) mg/dl Albumin 2.8 L (3.4-5.0) gm/dl Random Vancomycin 19.6 mcg/ml Tacrolimus Hep Bs Antigen (Neg) Hep Bs Antibody Hep Bs Antibody, Quant (>or=10mIU/mL Immune) mIU/mL 09/29/19 09/29/19 09/28/19 Range/Units 07:39 00:10 19:46 APTT 113.3 H* (21.0-31.0) Seconds PTT Ratio 4.1 Sodium (136-145) mmol/L Potassium (3.5-5.1) mmol/L Chloride (98-107) mmol/L Carbon Dioxide (21-32) mmol/L Anion Gap (3-11) BUN (7-18) mg/dl Creatinine (0.6-1.4) mg/dl Est Cr Clr Drug Dosing ml/min Est GFR ( Amer) Est GFR (Non-Af Amer) BUN/Creatinine Ratio (-20) Glucose (70-99) mg/dl POC Glucose 110 H 127 H (70-99) mg/dl Calcium (8.5-10.1) mg/dl Phosphorus (2.5-4.9) mg/dl Magnesium (1.8-2.4) mg/dl Albumin (3.4-5.0) gm/dl Random Vancomycin mcg/ml Tacrolimus Hep Bs Antigen (Neg) Hep Bs Antibody Hep Bs Antibody, Quant (>or=10mIU/mL Immune) mIU/mL 09/28/19 09/28/19 09/28/19 Range/Units 17:28 16:18 11:14 APTT 44.7 H (21.0-31.0) Seconds PTT Ratio 1.6 Sodium (136-145) mmol/L Potassium (3.5-5.1) mmol/L Chloride (98-107) mmol/L Carbon Dioxide (21-32) mmol/L Anion Gap (3-11) BUN (7-18) mg/dl Creatinine (0.6-1.4) mg/dl Est Cr Clr Drug Dosing ml/min Est GFR ( Amer) Est GFR (Non-Af Amer) BUN/Creatinine Ratio (-20) Glucose (70-99) mg/dl POC Glucose 151 H 129 H (70-99) mg/dl Calcium (8.5-10.1) mg/dl Phosphorus (2.5-4.9) mg/dl Magnesium (1.8-2.4) mg/dl Albumin (3.4-5.0) gm/dl Random Vancomycin mcg/ml Tacrolimus Hep Bs Antigen (Neg) Hep Bs Antibody Hep Bs Antibody, Quant (>or=10mIU/mL Immune) mIU/mL 09/28/19 09/28/19 09/27/19 Range/Units 11:01 11:01 20:04 APTT 97.2 H* (21.0-31.0) Seconds PTT Ratio 3.5 Sodium (136-145) mmol/L Potassium (3.5-5.1) mmol/L Chloride (98-107) mmol/L Carbon Dioxide (21-32) mmol/L Anion Gap (3-11) BUN (7-18) mg/dl Creatinine (0.6-1.4) mg/dl Est Cr Clr Drug Dosing ml/min Est GFR ( Amer) Est GFR (Non-Af Amer) BUN/Creatinine Ratio (10-20) Glucose (70-99) mg/dl POC Glucose (70-99) mg/dl Calcium (8.5-10.1) mg/dl Phosphorus (2.5-4.9) mg/dl Magnesium (1.8-2.4) mg/dl Albumin (3.4-5.0) gm/dl Random Vancomycin mcg/ml Tacrolimus Hep Bs Antigen Neg (Neg) Hep Bs Antibody Non-Immune Hep Bs Antibody, Quant < 3.10 L (>or=10mIU/mL Immune) mIU/mL Medications Administered Current Inpatient Medications Acetaminophen (Tylenol) 650 mg PO Q4H PRN PRN Reason: Pain or Fever Stop: 10/27/19 16:41 Acyclovir (Zovirax) 400 mg PO BID [facility] Stop: 10/27/19 20:59 Last Admin: 09/29/19 08:11 Dose: 400 mg Documented by: Albuterol (Duoneb) 3 ml NEB QIDR [facility] Stop: 10/27/19 18:59 Last Admin: 09/29/19 07:11 Dose: 3 ml Documented by: Amlodipine Besylate (Norvasc) 10 mg PO QAM [facility] Stop: 10/29/19 08:59 Last Admin: 09/29/19 08:12 Dose: 10 mg Documented by: Clopidogrel Bisulfate (Plavix) 75 mg PO DAILY [facility] Stop: 10/28/19 08:59 Last Admin: 09/29/19 08:12 Dose: 75 mg Documented by: Dextrose (Dextrose 50%) 25 - 50 ml IV UD PRN; Protocol PRN Reason: Hypoglycemia Protocol Stop: 10/27/19 16:41 Doxazosin Mesylate (Cardura) 8 mg PO HS [facility] Stop: 10/27/19 17:59 Last Admin: 09/28/19 21:22 Dose: 8 mg Documented by: Fish Oil (Abernathy-3 (Purified Fish Oil)) 1 gm PO BID [facility] Stop: 10/27/19 20:59 Last Admin: 09/29/19 08:13 Dose: 1 gm Documented by: Fluoxetine HCl (Prozac) 40 mg PO DAILY [facility] Stop: 10/28/19 08:59 Last Admin: 09/29/19 08:12 Dose: 40 mg Documented by: Fluticasone/Vilanterol (Breo Ellipta 200/25 Mcg Inh) 1 puffs INH DAILY [facility] Stop: 10/28/19 08:59 Last Admin: 09/29/19 08:06 Dose: 1 puffs Documented by: Glucagon (Glucagen) 1 mg SQ UD PRN; Protocol PRN Reason: Hypoglycemia Protocol Stop: 10/27/19 16:41 Glucose (Dex4 Glucose) 4 - 8 tabs PO UD PRN; Protocol PRN Reason: Hypoglycemia Protocol Stop: 10/27/19 16:41 Glucose (Glucose 40%) 15 - 30 gm PO UD PRN; Protocol PRN Reason: Hypoglycemia Protocol Stop: 10/27/19 16:41 Heparin Sodium (Porcine) (Heparin Sodium (Porcine)) 5,000 units SQ Q8 [facility] Stop: 10/27/19 21:59 Last Admin: 09/27/19 21:13 Dose: Not Given Documented by: Hydralazine HCl (Hydralazine Hcl) 5 mg IV Q4H PRN PRN Reason: SBP> 175 Stop: 10/27/19 19:17 Last Admin: 09/27/19 21:38 Dose: 5 mg Documented by: Tobramycin Sulfate 150 mg/ (Syringe) 3.75 mls @ 0.033 mls/min INH Q12R [facility] Stop: 10/27/19 18:59 Last Admin: 09/29/19 07:11 Dose: 0.033 mls/min Documented by: Piperacillin Sod/Tazobactam (Sod 3.375 gm/ Dextrose) 115 mls @ 28.75 mls/hr IV Q12H [facility]; Protocol Stop: 10/05/19 01:59 Last Infusion: 09/29/19 06:42 Dose: Infused Documented by: Heparin Sodium/Dextrose (Heparin Sodium/Dextrose) 25,000 units in 500 mls @ 19 mls/hr IV .Q24H [facility]; Protocol Stop: 10/27/19 21:14 Last Titration: 09/29/19 09:26 Dose: 850 units/hr, 17 mls/hr Documented by: Insulin Aspart (Novolog Flexpen) 0 units SC ACHS [facility] Stop: 10/27/19 16:41 Last Admin: 09/29/19 08:05 Dose: 2 units Documented by: Magnesium Chloride (Slow-Mag) 64 mg PO DAILY [facility] Stop: 10/28/19 08:59 Last Admin: 09/29/19 08:12 Dose: 64 mg Documented by: Metoprolol Succinate (Toprol Xl) 100 mg PO DAILY [facility] Stop: 10/28/19 08:59 Last Admin: 09/29/19 08:12 Dose: 100 mg Documented by: Miscellaneous (Carbohydrates For Hypoglycemia) 15 - 30 gm PO UD PRN PRN Reason: Hypoglycemia Protocol Stop: 10/27/19 16:41 Miscellaneous (Order Awaiting Action) 1 ea N/A QS [facility] Stop: 10/28/19 00:00 Last Admin: 09/29/19 08:05 Dose: Not Given Documented by: Miscellaneous Information (Consult) 1 ea N/A UD PRN PRN Reason: Consult Stop: 10/27/19 17:27 Miscellaneous Information (Consult) 1 ea N/A UD PRN PRN Reason: Consult Stop: 10/27/19 17:27 Montelukast Sodium (Singulair) 10 mg PO QPM [facility] Stop: 10/28/19 20:59 Last Admin: 09/28/19 21:22 Dose: 10 mg Documented by: Mycophenolate Sodium (Myfortic) 180 mg PO BID [facility] Stop: 10/27/19 20:59 Last Admin: 09/29/19 08:11 Dose: 180 mg Documented by: Nitroglycerin (Nitrostat) 0.4 mg SL UD PRN PRN Reason: Chest Pain Stop: 10/27/19 16:41 Ondansetron HCl (Zofran) 4 mg IV Q6H PRN PRN Reason: Nausea Stop: 10/27/19 16:41 Pantoprazole Sodium (Protonix) 40 mg PO BID [facility] Stop: 10/27/19 20:59 Last Admin: 09/29/19 08:11 Dose: 40 mg Documented by: Polyethylene Glycol (Miralax Powder Packet) 17 gm PO DAILY PRN PRN Reason: Constipation Stop: 10/27/19 16:41 Prednisone (Prednisone) 5 mg PO DAILY [facility] Stop: 10/28/19 08:59 Last Admin: 09/29/19 08:13 Dose: 5 mg Documented by: Rosuvastatin Calcium (Crestor) 40 mg PO HS [facility] Stop: 10/27/19 20:59 Last Admin: 09/28/19 21:22 Dose: 40 mg Documented by: Sodium Bicarbonate (Sodium Bicarbonate) 1,300 mg PO TID [facility] Stop: 10/27/19 20:59 Last Admin: 09/29/19 09:34 Dose: 1,300 mg Documented by: Tacrolimus (Prograf) 0.5 mg PO BID [facility] Stop: 10/27/19 20:59 Last Admin: 09/29/19 08:11 Dose: 0.5 mg Documented by: Trimethoprim/Sulfamethoxazole (Septra 400/80mg Tab) 1 tab PO MoTh@0900 [facility] Stop: 10/28/19 08:59 (1) CHF (congestive heart failure) Heart failure chronicity: unspecified Heart failure type: unspecified Qualified Code(s): I50.9 - Heart failure, unspecified (2) Chest pain Chest pain type: precordial pain Qualified Code(s): R07.2 - Precordial pain (3) HTN (hypertension) Hypertension type: unspecified Qualified Code(s): I10 - Essential (primary) hypertension
[2019-09-29] MEDS ORDERED: POTASSIUM CHLORIDE 10 MEQ TABCR PO STA (09:53)
--- NOTE | 2019-09-29 10:05 | Pharmacy Report ---
Pharmacy Abx Dose Short Note - Date of Service September 29, 2019 - Assessment & Plan Assessment * Mr Bill is a 78 year old M receiving Vanc/Zosyn for treatment of pneumonia. * PMH is significant for DM, CKD, CHF, pulmonary fibrosis, s/p lung transplant in 2012, immunosuppressant medications. * MRSA nasal swab negative, blood cultures negative thus far * Vancomycin dosing is based upon random levels for now, in the setting of significant renal impairment. Plan Vancomycin * Random level this mornin.6 mcg/mL, indicating that re-dose is needed today * Vanc 750mg x1 dose this morning * Will assess another random level with AM labs tomorrow and re-dose when appropriate. * Goal trough level for pulmonary infection: 15-20 mcg/mL Zosyn 3.375gm IV x1 dose over 30 min, then 3.375gm IV q12h (as recommended for CrCl <20mL/min) Pharmacy will continue to follow and will adjust dose/frequency as necessary. Thank you.
[2019-09-29] MEDS ORDERED: VANCOMYCIN HCL 750 MG in SODIUM CHLORIDE 0.9% 250 ML IV ONE (10:30)
[2019-09-29] MEDS: HydrALAZINE 10 MG TAB PO SCH ×3 (12:16→21:00)
--- NOTE | 2019-09-29 13:17 | Nephrology Progress Note ---
Date of Service September 29, 2019 Assessment & Plan (1) ADEEL (acute kidney injury): Non-oliguric. Metabolic profile otherwise within normal limits. Volume status remains acceptable. Appropriate UOP in response to diuretics. Creatinine stable. There is no emergent indication to start dialysis at this time. Agree with continued use of furosemide to encourage a net negative fluid balance. 80 mg IV x 2 doses provided yesterday. I would suggest that we convert to furosemide 80 mg PO twice daily today. Continue to document strict I/O's and check daily weights. A metabolic profile will be repeated tomorrow AM. Elevation in serum creatinine likely secondary to accelerated hypertension. BP has improved with diuresis and adjustment in antihypertensives. Plan of care was reviewed with cardiology this morning. A low dose hydralazine 10 mg TID will be added today and titrated as needed to maintain BP control. Additional hydralazine can be provided as needed for any additional accelerated BP readings. Mr. Bill remains on a heparin gtt for UE DVT with plan to convert to warfarin versus Eliquis given renal dysfunction. If Eliquis were to be used, I would consider geriatric (2.5 mg twice daily) dosing. I defer to cardiology and Dr. Chopra suggested that warfarin may be a better option and I concur. (2) CKD (chronic kidney disease): Baseline creatinine 3.5 mg/dL. Follows with Dr. Sterling. AVF mature for use. US reviewed yesterday. Noted that UE DVT does not affect the AVF. (3) Anemia secondary to renal failure: Hgb stable. On FELICIANO as outpatient. Elevated MCV, may benefit from B vitamin supplementation. (4) Lung transplant status: No emergent indication to check [place] level at this time. Subjective No acute events overnight. Overall, Shaun feels well. He denies any additional chest pain. He denies any dyspnea at rest. No lightheadedness or dizziness. Appetite is good. I discussed the patient's condition in detail with the nurse and Dr. Chopra. Review of Systems Review of Systems: All systems reviewed & are unremarkable except as noted in HPI & below Physical Exam Physical Exam: Limited due to COVID 19 pandemic. Constitutional: well developed; no acute distress Eyes: + anicteric sclerae ENMT: Mouth: oral mucous membranes not dry Neck: normal visual inspection and trachea midline Respiratory: normal respiratory effort Cardiovascular: Vessels: no JVD Extremities: + AV fistula Skin: + turgor decreased Results & Data Vital Signs (Past 12 Hours) Vital Signs Temp Pulse Pulse Resp BP Pulse Ox 09/29/19 12:42 36.5 C 81 20 138/88 96 09/29/19 11:41 98 09/29/19 10:51 71 16 97 09/29/19 08:17 36.5 C 66 22 176/76 H 96 09/29/19 07:45 69 09/29/19 07:41 36.2 C L 66 16 176/76 H 96 09/29/19 07:15 68 20 96 09/29/19 04:05 36.4 C L 78 24 156/85 H 93 Laboratory Results Laboratory Results - last 24 hr 09/27/19 09/28/19 09/28/19 20:04 16:18 17:28 APTT 44.7 H PTT Ratio 1.6 Sodium Potassium Chloride Carbon Dioxide Anion Gap BUN Creatinine Est Cr Clr Drug Dosing Est GFR ( Amer) Est GFR (Non-Af Amer) BUN/Creatinine Ratio Glucose POC Glucose 151 H Calcium Phosphorus Magnesium Albumin Random Vancomycin Tacrolimus 09/28/19 09/29/19 09/29/19 19:46 00:10 07:39 APTT 113.3 H* PTT Ratio 4.1 Sodium Potassium Chloride Carbon Dioxide Anion Gap BUN Creatinine Est Cr Clr Drug Dosing Est GFR ( Amer) Est GFR (Non-Af Amer) BUN/Creatinine Ratio Glucose POC Glucose 127 H 110 H Calcium Phosphorus Magnesium Albumin Random Vancomycin Tacrolimus 09/29/19 09/29/19 09/29/19 07:53 07:53 08:01 APTT 69.3 H* PTT Ratio 2.5 Sodium 139 Potassium 3.6 Chloride 104 Carbon Dioxide 26 Anion Gap 9.0 BUN 40 H Creatinine 3.97 H Est Cr Clr Drug Dosing 17.0 Est GFR ( Amer) 15.8 Est GFR (Non-Af Amer) 13.6 BUN/Creatinine Ratio 10.2 Glucose 107 H POC Glucose Calcium 8.6 Phosphorus 3.4 Magnesium 1.8 Albumin 2.8 L Random Vancomycin 19.6 Tacrolimus 09/29/19 11:44 APTT PTT Ratio Sodium Potassium Chloride Carbon Dioxide Anion Gap BUN Creatinine Est Cr Clr Drug Dosing Est GFR ( Amer) Est GFR (Non-Af Amer) BUN/Creatinine Ratio Glucose POC Glucose 143 H Calcium Phosphorus Magnesium Albumin Random Vancomycin Tacrolimus PG Care Time/CCT Total # of Minutes Spent Total Time Spent with Patient: Total time spent is greater than 50% in coordination of care (as documented) at patient's floor/unit and/or counseling patient: Coding Level of Care Code 83280 Subseq Hosp Care Lvl 3 Diagnoses ADEEL (acute kidney injury) N17.9 CKD (chronic kidney disease) N18.9 Chronic kidney disease stage: unspecified stage Anemia secondary to renal failure D63.1 Lung transplant status Z94.2 (1) CKD (chronic kidney disease) Chronic kidney disease stage: unspecified stage Qualified Code(s): N18.9 - Chronic kidney disease, unspecified
[2019-09-29] MEDS ORDERED: FUROSEMIDE 80 MG TAB PO ONE ×2 (14:50→21:00)
--- NOTE | 2019-09-29 15:28 | Cardiology Progress Note ---
Date of Service September 29, 2019 Assessment & Plan (1) Chest pain: Given the clinical context of believe Mr. London was suffering from hypertensive urgency that resulted in chest discomfort. No recurrence of chest discomfort since amlodipine started. Unfortunately, BP remains elevated despite addition of amlodipine 10 mg. We will start hydralazine 10 mg p.o. every 8 hours for further BP management and titrate upwards as needed. (2) Pulmonary edema: Clinically improved. 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 At this point it appears he would benefit from lifelong anticoagulation for recurrent DVTs. He does carry history of GI bleed while on triple therapy in the past so I will discontinue his aspirin at this time. Given his significantly reduced GFR there is a significant concern for bleeding with DOAC therapy, so, I believe the most prudent course of action would be to restart Coumadin and bridge with heparin. (4) Lung transplant status: Stable (5) Ischemic cardiomyopathy: Transient. Echocardiogram from October 2018 showed a similar pattern however cardiac catheterization prior to that showed widely patent LAD stents. 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 I do not believe there will be any benefit from repeating a cardiac catheterization at this time and he will be continued to be treated with goal- directed medical therapy. Subjective Patient seen and examined out of bed in chair. States that he feels well. Shortness of breath has improved and his oxygen has been DC'd. Denies any recurrent chest pain or palpitations, lightheadedness, dizziness or syncope. Has diuresed well overnight. Telemetry reviewed: Review of Systems Review of Systems: All systems reviewed & are unremarkable except as noted in HPI & below Physical Exam Physical Exam: General: Awake, alert and oriented x 3. No acute distress. HEENT: Normocephalic, atraumatic. Pupils equal, round and reactive to light and accommodation. Extraocular muscles are intact. Anicteric sclera. Moist mucous membranes. Neck: No JVD. No bruit. Cardiovascular: Regular. Positive S-4. Normal S-1 and S-2. No S-3. 3/6 mid to late systolic ejection murmur, greatest at the right sternal border, second intercostal space with radiation to the bilateral carotids. No rubs. Pulmonary: Clear to auscultation bilaterally. No rales, rhonchi, or wheezing. Abdomen: Bowel sounds x 4, soft. No rebound, guarding or tenderness. No organomegaly. Extremities: No clubbing, cyanosis or edema. +2 pedal pulses bilaterally. Skin: Warm and dry. 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
[2019-09-29 16:11] LABS: Partial Thromboplastin Ratio 1.7
[2019-09-29 16:55] LABS: Partial Thromboplastin Time 46.2 Seconds (21.0-31.0)
[2019-09-29] MEDS: HEPARIN SODIUM/DEXTROSE 25,000 UNITS/500 ML BAG IV SCH (17:02)
[2019-09-29] MEDS: WARFARIN SOD 2 MG TAB PO SCH (17:20)
[2019-09-29 20:49] LABS: BUN Creatinine Ratio 10.1 (10-20); Calcium 8.4 mg/dl (8.5-10.1); Creatinine Clr Calc Pharmacy 17.2 ml/min; Est GFR (African American) 16.1; Est GFR (Non-African American) 13.9; Potassium 4.4 mmol/L (3.5-5.1)
[2019-09-29] MEDS: MONTELUKAST SODIUM 10 MG TABLET PO SCH (21:00)
[2019-09-29] MEDS: ROSUVASTATIN CALCIUM 20 MG TAB PO SCH (21:01)
[2019-09-29] MEDS: DOXAZosin MESYLATE 4 MG TAB PO SCH (21:01)
[2019-09-30] MEDS: [UNRECOGNIZED DRUG - OTHER] SCH ×3 (01:59→16:29)
[2019-09-30] MEDS: PIPERACILLIN/TAZOBACTAM 3.375 GM in DEXTROSE 5% 100 ML IV SCH (01:59)
[2019-09-30] MEDS: HydrALAZINE 10 MG TAB PO SCH ×3 (06:43→20:19)
[2019-09-30] MEDS: TOBRAMYCIN SULFATE INH SCH ×2 (06:55→19:16)
[2019-09-30] MEDS: ALBUT/IPRATROP 3MG/0.5MG NEB 3 ML VIAL NEB SCH ×4 (06:55→19:16)
[2019-09-30 07:09] LABS: INR 1.1 (0.9-1.1); Prothrombin Time 11.7 Seconds (9.0-12.0)
[2019-09-30 07:23] LABS: Partial Thromboplastin Ratio 1.5; Partial Thromboplastin Time 42.3 Seconds (21.0-31.0)
[2019-09-30 07:28] LABS: BUN Creatinine Ratio 9.6 (10-20); Calcium 8.7 mg/dl (8.5-10.1); Creatinine Clr Calc Pharmacy 17.3 ml/min; Est GFR (African American) 16.1; Est GFR (Non-African American) 13.9; Magnesium 1.7 mg/dl (1.8-2.4); Potassium 3.5 mmol/L (3.5-5.1)
[2019-09-30] MEDS: INSULIN ASPART 100 UNITS/ML 3 ML PEN SC SCH ×4 (07:56→20:32)
[2019-09-30] MEDS: SODIUM BICARBONATE 650 MG TAB PO SCH ×3 (07:59→20:18)
[2019-09-30] MEDS: OMEGA-3 (PURIFIED FISH OIL) 1 GM CAP PO SCH ×2 (07:59→20:19)
[2019-09-30] MEDS: TACROLIMUS 0.5 MG CAP PO SCH ×2 (08:00→20:21)
[2019-09-30] MEDS ORDERED: HEPARIN IV BOLUS 3,000 UNITS in SYRINGE 0 ML IV ONE (08:00)
[2019-09-30] MEDS: PANTOprazole 40 MG TAB PO SCH ×2 (08:00→20:20)
[2019-09-30] MEDS: MAGNESIUM CHLORIDE 64MG DELAYED REL TAB PO SCH (08:01)
[2019-09-30] MEDS: AMLODIPINE BESYLATE 5 MG TAB PO SCH (08:01)
[2019-09-30] MEDS: METOPROLOL SUCC 50MG EXT REL TAB PO SCH (08:02)
[2019-09-30] MEDS: predniSONE 5 MG TAB PO SCH (08:03)
[2019-09-30] MEDS: FLUOXETINE HCL 20 MG CAP PO SCH (08:03)
[2019-09-30] MEDS: FUROSEMIDE 80 MG TAB PO SCH ×2 (08:04→16:29)
[2019-09-30] MEDS: CLOPIDOGREL BISULFATE 75 MG TAB PO SCH (08:04)
[2019-09-30] MEDS: ACYCLOVIR 400 MG TAB PO SCH ×2 (08:04→20:21)
[2019-09-30] MEDS: FLUTICASONE/VILANTEROL 200/25MCG 14 PUFFS/INHALER INH SCH (08:05)
[2019-09-30] MEDS: MYCOPHENOLATE SODIUM 180 MG TAB PO SCH ×2 (08:05→20:20)
--- NOTE | 2019-09-30 08:10 | Hospitalist Progress Note ---
Date of Service September 30, 2019 Assessment & Plan (1) Chest pain: likely secondary to Hypertensive urgency, not ACS - CP resolved on admission - trop. mildly elevated (chronic) in setting of CKD - echo ordered and reviewed w/ cardiology, appreciate their input - pt initially received prn hydralazine and IV lasix - now started on amlodipine - BP improved but still hypertensive, hydralazine 10 mg every 8 hours initiated - no recurrent complaint of chest pain (2) Hypoxia: (3) CHF (congestive heart failure): Acute hypoxic respiratory failure - multiple etiologies Pulmonary edema in setting of hypertensive urgency Acute on chronic systolic HF Concern for poss. 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 difficile colitis (recurrent) who presented to ED secondary to chest pain and shortness of breath. Initially on 6L of suppl. O2 via EMS, then down to 3L of suppl. O2 in the ED. Chest pain has resolved with nitro per pt. Hypoxic requiring 3L of O2 via NC. 1st troponin elevated at .070, which is baseline for pt. No ST or t wave changes noted on EKG Pt significantly hypertensive in setting of ESRD. Chest CT: 1. Cardiomegaly. Intralobular septal thickening throughout the left lung suggests a component of congestive failure. 2. Groundglass consolidation is seen throughout the left lung. This could represent pulmonary edema and/or an infectious/inflammatory pneumonitis. Clinical correlation will be essential. 3. Small to moderate pleural effusions, left larger than right. 4. Changes of advanced interstitial lung disease are present in the right lung with evidence of previous surgery. Sx likely in setting of acute on chronic CHF with pulmonary edema (pt with hx of HFrEF with a repeat echo 12/29/2018 showing return of normal EF 55%) Gave Lasix 80mg IV on admission and x2 the next day Cardiology and nephrology consulted Spoke with Dr. Hansen (Pulmonary) to discuss CT results - Feels likely etiology Pulm edema in setting of HTN urgency vs infectious pneumonitis in setting of immunosuppression. Pt low risk for dat novel COVID due to no known exposure and pt has been at home. Ground glass opacities also seen on previous CT. Recommending starting broad spectrum antibiotics Started Vanco/zosyn - given pt is improving and his med. hx, recommend 7-10 days of Abx therapy sputum culture - ordered Clinically patient much improved, currently on room air, also not hypoxic with ambulation [facility] lung transplant [facility] contacted, discussed with Dr. Lyndon Washington, who is aware about patient's admission Per nephrology, now on 80 mg p.o. Lasix twice daily RUE Brachial vein DVT - prior hx of RUE DVT, and b/l LE DVT - most recently treated for 3 months w/ warfarin - started on IV heparin - given pt is on ASA and plavix and has prior hx of GI bleed, d/c 'ed ASA (discussed w/ cardiology) - plan for initiation of warfarin, discussed this with pharmacy, lung transplant physician at [facility], as well as cardiology and nephrology here at [facility] -Monitor for bleeding (4) CKD (chronic kidney disease) stage 5, GFR less than 15 ml/min: Patient with acute on chronic CKD stage V Baseline creatinine 3.5, he does have matured AV fistula BUN/creatinine 40 and 4.08 Consulted nephrology, Dr. Burnett - case discussed on admission gave IV lasix 80mg x 1 on admission and x2 the next day Lasix 80 mg twice daily per nephrology (5) HTN (hypertension): Hypertensive URGENCY Patient significantly hypertensive in ED Likely in setting of volume overload, end-stage renal disease, and CHF IV Lasix 80 mg and prn hydralazine on admission continue metoprolol and cardura Started amlodipine - pt's BP improved, but patient still hypertensive, hydralazine 10 mg 3 times daily initiated (6) Hypomagnesemia: received 1g IV mag sulfated in ED monitor and replete as needed (7) Diabetes mellitus, type II: Last A1C in [place] 5.5 09/2018 obtain A1C in a.m. insulin sliding scale per protocol (8) Idiopathic pulmonary fibrosis: History of left lung transplant in 2012 On tacrolimus, mycophenolate and prednisone Check tacrolimus and mycophenolate levels Continue Advair, tobramycin neb lower threshold to consult pulm if no improvement with diuresis (9) Lung transplant status: History of left lung transplant in 2013 On tacrolimus, mycophenolate and prednisone Check tacrolimus and mycophenolate levels Continue Advair, tobramycin neb Transplant Center at [facility] contacted (10) Paroxysmal atrial fibrillation: hx of pAFib/ Aflutter off OAC due to hx of GIB continue metoprolol - now on IV heparin for RUE DVT, plan to start PO AC (11) Hyperparathyroidism: continue calcitriol (12) Chronic anemia: H/H stable at 10/30.8 on aranesp weekly (13) HLD (hyperlipidemia): continue lovaza (14) DVT prophylaxis: SQ Heparin Disposition: admit to PCU Follow up: PCP Dr. Lindo upon discharge Admission and Anticipated Discharge Date Admission Date: September 27, 2019 Subjective Patient sitting in bed, in no acute distress. He is alert and oriented, and answers questions appropriately. He says that he did not have a good night, he was hallucinating, had some bad dreams about [place]. At this moment he felt that it could have been due to hydralazine. Explained that unfortunately this can happen in the hospital especially at night. He currently denies any chest pain, shortness of breath, abdominal pain, nausea or vomiting. He also denies any blood in the stool. Started warfarin, cont. IV heparin. Hydralazine added to amlodipine for better BP control. Switch Abx to PO Augmentin. Review of Systems Review of Systems: All systems reviewed & are unremarkable except as noted in HPI & below Constitutional: no fever and no chills Respiratory: no cough and no dyspnea Cardiovascular: no chest pain, no palpitations and no edema Gastrointestinal: no abdominal pain, no nausea, no vomiting, no blood in stools and no melena Physical Exam Physical Exam: Constitutional: Chronically ill-appearing elderly male, sitting up in bed, in NAD, breathing comfortably on room air Head: Normocephalic, Atraumatic Eyes: PERRL, conjunctivae normal, anicteric sclerae ENMT: external ear and nose normal, oropharynx normal Neck: trachea midline, no thyromegaly normal visual inspection Respiratory: normal respiratory effort, mild rhonchi b/l, no crackles, no wheezing, no accessory muscle use Cardiovascular: regular, soft syst. murmur, no edema Vessels: no JVD appreciated or carotid bruit , right radial AV fistula Chest: normal inspection of chest Abdomen: normal bowel sounds, soft, nontender, nondistended Musculoskeletal: no cyanosis or clubbing, extremities motor strength 5/5, moves extremities spontaneously Skin: no rashes, warm and dry normal turgor Neurologic: PERRL, EOMI, accommodation nl, no face palsy, no dysarthria CN's II-XI intact bilaterally and moves all extremities Psychiatric: A+Ox3, euthymic affect Results & Data Results & Data ([facility]) Vital Signs (Past 12 Hours) Vital Signs Temp Pulse Resp BP Pulse Ox 09/30/19 06:59 81 18 98 09/30/19 03:59 36.6 C 77 17 146/72 H 96 09/30/19 01:04 36.6 C 80 17 118/66 99 Laboratory Results 09/30/19 09/30/19 09/30/19 Range/Units 07:36 06:23 06:23 PT 11.7 (9.0-12.0) Seconds INR 1.1 (0.9-1.1) APTT 42.3 H (21.0-31.0) Seconds PTT Ratio 1.5 Sodium (136-145) mmol/L Potassium (3.5-5.1) mmol/L Chloride (98-107) mmol/L Carbon Dioxide (21-32) mmol/L Anion Gap (3-11) BUN (7-18) mg/dl Creatinine (0.6-1.4) mg/dl Est Cr Clr Drug Dosing ml/min Est GFR ( Amer) Est GFR (Non-Af Amer) BUN/Creatinine Ratio (10-20) Glucose (70-99) mg/dl POC Glucose 128 H (70-99) mg/dl Calcium (8.5-10.1) mg/dl Phosphorus (2.5-4.9) mg/dl Magnesium (1.8-2.4) mg/dl Albumin (3.4-5.0) gm/dl Specimen Hemolysis Random Vancomycin mcg/ml 09/30/19 09/30/19 09/29/19 Range/Units 06:23 06:23 20:11 PT (9.0-12.0) Seconds INR (0.9-1.1) APTT (21.0-31.0) Seconds PTT Ratio Sodium 138 137 (136-145) mmol/L Potassium 3.5 D 4.4 D (3.5-5.1) mmol/L Chloride 105 104 (98-107) mmol/L Carbon Dioxide 27 26 (21-32) mmol/L Anion Gap 6.0 7.0 (3-11) BUN 37 H 39 H (7-18) mg/dl Creatinine 3.91 H 3.92 H (0.6-1.4) mg/dl Est Cr Clr Drug Dosing 17.3 17.2 ml/min Est GFR ( Amer) 16.1 16.1 Est GFR (Non-Af Amer) 13.9 13.9 BUN/Creatinine Ratio 9.6 L 10.1 (10-20) Glucose 110 H 130 H (70-99) mg/dl POC Glucose (70-99) mg/dl Calcium 8.7 8.4 L (8.5-10.1) mg/dl Phosphorus (2.5-4.9) mg/dl Magnesium 1.7 L (1.8-2.4) mg/dl Albumin (3.4-5.0) gm/dl Specimen Hemolysis Random Vancomycin 22.6 mcg/ml 09/29/19 09/29/19 09/29/19 Range/Units 20:08 16:15 15:44 PT (9.0-12.0) Seconds INR (0.9-1.1) APTT 46.2 H* (21.0-31.0) Seconds PTT Ratio 1.7 Sodium (136-145) mmol/L Potassium (3.5-5.1) mmol/L Chloride (98-107) mmol/L Carbon Dioxide (21-32) mmol/L Anion Gap (3-11) BUN (7-18) mg/dl Creatinine (0.6-1.4) mg/dl Est Cr Clr Drug Dosing ml/min Est GFR ( Amer) Est GFR (Non-Af Amer) BUN/Creatinine Ratio (10-20) Glucose (70-99) mg/dl POC Glucose 140 H 204 H (70-99) mg/dl Calcium (8.5-10.1) mg/dl Phosphorus (2.5-4.9) mg/dl Magnesium (1.8-2.4) mg/dl Albumin (3.4-5.0) gm/dl Specimen Hemolysis Random Vancomycin mcg/ml 09/29/19 09/29/19 09/29/19 Range/Units 11:44 08:01 07:53 PT (9.0-12.0) Seconds INR (0.9-1.1) APTT 69.3 H* (21.0-31.0) Seconds PTT Ratio 2.5 Sodium (136-145) mmol/L Potassium (3.5-5.1) mmol/L Chloride (98-107) mmol/L Carbon Dioxide (21-32) mmol/L Anion Gap (3-11) BUN (7-18) mg/dl Creatinine (0.6-1.4) mg/dl Est Cr Clr Drug Dosing ml/min Est GFR ( Amer) Est GFR (Non-Af Amer) BUN/Creatinine Ratio (-20) Glucose (70-99) mg/dl POC Glucose 143 H (70-99) mg/dl Calcium (8.5-10.1) mg/dl Phosphorus (2.5-4.9) mg/dl Magnesium (1.8-2.4) mg/dl Albumin (3.4-5.0) gm/dl Specimen Hemolysis Random Vancomycin 19.6 mcg/ml 09/29/19 Range/Units 07:53 PT (9.0-12.0) Seconds INR (0.9-1.1) APTT (21.0-31.0) Seconds PTT Ratio Sodium 139 (136-145) mmol/L Potassium 3.6 (3.5-5.1) mmol/L Chloride 104 (98-107) mmol/L Carbon Dioxide 26 (21-32) mmol/L Anion Gap 9.0 (3-11) BUN 40 H (7-18) mg/dl Creatinine 3.97 H (0.6-1.4) mg/dl Est Cr Clr Drug Dosing 17.0 ml/min Est GFR ( Amer) 15.8 Est GFR (Non-Af Amer) 13.6 BUN/Creatinine Ratio 10.2 (10-20) Glucose 107 H (70-99) mg/dl POC Glucose (70-99) mg/dl Calcium 8.6 (8.5-10.1) mg/dl Phosphorus 3.4 (2.5-4.9) mg/dl Magnesium 1.8 (1.8-2.4) mg/dl Albumin 2.8 L (3.4-5.0) gm/dl Specimen Hemolysis Random Vancomycin mcg/ml Medications Administered Current Inpatient Medications Acetaminophen (Tylenol) 650 mg PO Q4H PRN PRN Reason: Pain or Fever Stop: 10/27/19 16:41 Acyclovir (Zovirax) 400 mg PO BID MARLYS Stop: 10/27/19 20:59 Last Admin: 09/30/19 08:04 Dose: 400 mg Documented by: Albuterol (Duoneb) 3 ml NEB QIDR MARLYS Stop: 10/27/19 18:59 Last Admin: 09/30/19 06:55 Dose: 3 ml Documented by: Amlodipine Besylate (Norvasc) 10 mg PO QAM MARLYS Stop: 10/29/19 08:59 Last Admin: 09/30/19 08:01 Dose: 10 mg Documented by: Clopidogrel Bisulfate (Plavix) 75 mg PO DAILY MARLYS Stop: 10/28/19 08:59 Last Admin: 09/30/19 08:04 Dose: 75 mg Documented by: Dextrose (Dextrose 50%) 25 - 50 ml IV UD PRN; Protocol PRN Reason: Hypoglycemia Protocol Stop: 10/27/19 16:41 Doxazosin Mesylate (Cardura) 8 mg PO HS [facility] Stop: 10/27/19 17:59 Last Admin: 09/29/19 21:01 Dose: 8 mg Documented by: Fish Oil ([place]-3 (Purified Fish Oil)) 1 gm PO BID MARLYS Stop: 10/27/19 20:59 Last Admin: 09/30/19 07:59 Dose: 1 gm Documented by: Fluoxetine HCl (Prozac) 40 mg PO DAILY MARLYS Stop: 10/28/19 08:59 Last Admin: 09/30/19 08:03 Dose: 40 mg Documented by: Fluticasone/Vilanterol (Breo Ellipta 200/25 Mcg Inh) 1 puffs INH DAILY MARLYS Stop: 10/28/19 08:59 Last Admin: 09/30/19 08:05 Dose: 1 puffs Documented by: Furosemide (Lasix) 80 mg PO BID17 MARLYS Stop: 10/30/19 08:59 Last Admin: 09/30/19 08:04 Dose: 80 mg Documented by: Glucagon (Glucagen) 1 mg SQ UD PRN; Protocol PRN Reason: Hypoglycemia Protocol Stop: 10/27/19 16:41 Glucose (Dex4 Glucose) 4 - 8 tabs PO UD PRN; Protocol PRN Reason: Hypoglycemia Protocol Stop: 10/27/19 16:41 Glucose (Glucose 40%) 15 - 30 gm PO UD PRN; Protocol PRN Reason: Hypoglycemia Protocol Stop: 10/27/19 16:41 Heparin Sodium (Porcine) (Heparin Sodium (Porcine)) 5,000 units SQ Q8 MARLYS Stop: 10/27/19 21:59 Last Admin: 09/27/19 21:13 Dose: Not Given Documented by: Hydralazine HCl (Hydralazine Hcl) 5 mg IV Q4H PRN PRN Reason: SBP> 175 Stop: 10/27/19 19:17 Last Admin: 09/27/19 21:38 Dose: 5 mg Documented by: Hydralazine HCl (Apresoline) 10 mg PO Q8 MARLYS Stop: 10/29/19 10:54 Last Admin: 09/30/19 06:43 Dose: 10 mg Documented by: Tobramycin Sulfate 150 mg/ (Syringe) 3.75 mls @ 0.033 mls/min INH Q12R MARLYS Stop: 10/27/19 18:59 Last Admin: 09/30/19 06:55 Dose: 0.033 mls/min Documented by: Piperacillin Sod/Tazobactam (Sod 3.375 gm/ Dextrose) 115 mls @ 28.75 mls/hr IV Q12H MARLYS; Protocol Stop: 10/05/19 01:59 Last Infusion: 09/30/19 05:51 Dose: Infused Documented by: Heparin Sodium/Dextrose (Heparin Sodium/Dextrose) 25,000 units in 500 mls @ 20 mls/hr IV .Q24H MARLYS; Protocol Stop: 10/27/19 21:14 Last Titration: 09/30/19 07:53 Dose: 1,000 units/hr, 20 mls/hr Documented by: Insulin Aspart (Novolog Flexpen) 0 units SC ACHS MARLYS Stop: 10/27/19 16:41 Last Admin: 09/30/19 07:56 Dose: 3 units Documented by: Magnesium Chloride (Slow-Mag) 64 mg PO DAILY MARLYS Stop: 10/28/19 08:59 Last Admin: 09/30/19 08:01 Dose: 64 mg Documented by: Metoprolol Succinate (Toprol Xl) 100 mg PO DAILY MARLYS Stop: 10/28/19 08:59 Last Admin: 09/30/19 08:02 Dose: 100 mg Documented by: Miscellaneous (Carbohydrates For Hypoglycemia) 15 - 30 gm PO UD PRN PRN Reason: Hypoglycemia Protocol Stop: 10/27/19 16:41 Miscellaneous (Order Awaiting Action) 1 ea N/A QS MARLYS Stop: 10/28/19 00:00 Last Admin: 09/30/19 08:05 Dose: Not Given Documented by: Miscellaneous Information (Consult) 1 ea N/A UD PRN PRN Reason: Consult Stop: 10/27/19 17:27 Montelukast Sodium (Singulair) 10 mg PO QPM MARLYS Stop: 10/28/19 20:59 Last Admin: 09/29/19 21:00 Dose: 10 mg Documented by: Mycophenolate Sodium (Myfortic) 180 mg PO BID MARLYS Stop: 10/27/19 20:59 Last Admin: 09/30/19 08:05 Dose: 180 mg Documented by: Nitroglycerin (Nitrostat) 0.4 mg SL UD PRN PRN Reason: Chest Pain Stop: 10/27/19 16:41 Ondansetron HCl (Zofran) 4 mg IV Q6H PRN PRN Reason: Nausea Stop: 10/27/19 16:41 Pantoprazole Sodium (Protonix) 40 mg PO BID MARLYS Stop: 10/27/19 20:59 Last Admin: 09/30/19 08:00 Dose: 40 mg Documented by: Polyethylene Glycol (Miralax Powder Packet) 17 gm PO DAILY PRN PRN Reason: Constipation Stop: 10/27/19 16:41 Potassium Chloride (Klor-Con M20) 20 meq PO NOW STA Stop: 09/30/19 08:07 Prednisone (Prednisone) 5 mg PO DAILY MARLYS Stop: 10/28/19 08:59 Last Admin: 09/30/19 08:03 Dose: 5 mg Documented by: Rosuvastatin Calcium (Crestor) 40 mg PO HS MARLYS Stop: 10/27/19 20:59 Last Admin: 09/29/19 21:01 Dose: 40 mg Documented by: Sodium Bicarbonate (Sodium Bicarbonate) 1,300 mg PO TID MARLYS Stop: 10/27/19 20:59 Last Admin: 09/30/19 07:59 Dose: 1,300 mg Documented by: Tacrolimus (Prograf) 0.5 mg PO BID [facility] Stop: 10/27/19 20:59 Last Admin: 09/30/19 08:00 Dose: 0.5 mg Documented by: Trimethoprim/Sulfamethoxazole (Septra 400/80mg Tab) 1 tab PO MoTh@0900 [facility] Stop: 10/28/19 08:59 Warfarin Sodium (Coumadin) 2 mg PO DAILY@1600 [facility] Stop: 10/29/19 15:59 Last Admin: 09/29/19 17:20 Dose: 2 mg Documented by: (1) CHF (congestive heart failure) Heart failure chronicity: unspecified Heart failure type: unspecified Qualified Code(s): I50.9 - Heart failure, unspecified (2) Chest pain Chest pain type: precordial pain Qualified Code(s): R07.2 - Precordial pain (3) HTN (hypertension) Hypertension type: unspecified Qualified Code(s): I10 - Essential (primary) h ypertension
[2019-09-30] MEDS ORDERED: POTASSIUM CHLORIDE 20 MEQ TABCR PO STA (08:19)
[2019-09-30] MEDS: AMOXICILLIN/CLAVULANATE 500 MG TAB PO SCH ×2 (11:06→20:20)
--- NOTE | 2019-09-30 11:13 | Cardiology Progress Note ---
Date of Service September 30, 2019 Assessment & Plan (1) Chest pain: (2) Pulmonary edema: Clinically improved. (3) Deep vein thrombosis (DVT) of brachial vein of right upper extremity: (4) Lung transplant status: Stable (5) Ischemic cardiomyopathy: The patient is currently clinically stable. He is tolerating his medications including hydralazine. His blood pressure is improved and I suspect that further treatment can be handled as an outpatient. Subjective Patient a little confused today. Review of Systems Review of Systems: Unobtainable due to cognitive status Physical Exam Physical Exam: General: no acute distress and stated age Head: normocephalic, no masses, lesions, tenderness or abnormalities Eyes: conjunctiva are pink and non-injected, sclera clear Neck: supple, no adenopathy, no bruits, normal jugular venous pulse, no hepatojugular reflux Chest: normal shape and normal respiratory effort Lungs: clear to auscultation and percussion Cardiac Exam: - regular rate & rhythm, no murmurs gallops or rubs - normal S1, normal S2 Pulses: 2(+) throughout Abdomen: abdomen soft, non-tender, no abnormal masses and no hepatosplenomegaly Musculoskeletal: no gait disturbance, no joint inflammation, no deforming arthritis Extremities: no edema and no cyanosis Neuro: grossly normal exam Results & Data Vital Signs (Past 12 Hours) Vital Signs Temp Pulse Pulse Resp BP Pulse Ox 09/30/19 10:51 81 18 99 09/30/19 07:40 64 09/30/19 06:59 81 18 98 09/30/19 03:59 36.6 C 77 17 146/72 H 96 09/30/19 01:04 36.6 C 80 17 118/66 99 Laboratory Results Laboratory Results - last 24 hr 09/29/19 09/29/19 09/29/19 11:44 15:44 16:15 PT INR APTT 46.2 H* PTT Ratio 1.7 Sodium Potassium Chloride Carbon Dioxide Anion Gap BUN Creatinine Est Cr Clr Drug Dosing Est GFR ( Amer) Est GFR (Non-Af Amer) BUN/Creatinine Ratio Glucose POC Glucose 143 H 204 H Calcium Magnesium Specimen Hemolysis Random Vancomycin 09/29/19 09/29/19 09/30/19 20:08 20:11 06:23 PT INR APTT PTT Ratio Sodium 137 138 Potassium 4.4 D 3.5 D Chloride 104 105 Carbon Dioxide 26 27 Anion Gap 7.0 6.0 BUN 39 H 37 H Creatinine 3.92 H 3.91 H Est Cr Clr Drug Dosing 17.2 17.3 Est GFR ( Amer) 16.1 16.1 Est GFR (Non-Af Amer) 13.9 13.9 BUN/Creatinine Ratio 10.1 9.6 L Glucose 130 H 110 H POC Glucose 140 H Calcium 8.4 L 8.7 Magnesium 1.7 L Specimen Hemolysis Random Vancomycin 09/30/19 09/30/19 09/30/19 06:23 06:23 06:23 PT 11.7 INR 1.1 APTT 42.3 H PTT Ratio 1.5 Sodium Potassium Chloride Carbon Dioxide Anion Gap BUN Creatinine Est Cr Clr Drug Dosing Est GFR ( Amer) Est GFR (Non-Af Amer) BUN/Creatinine Ratio Glucose POC Glucose Calcium Magnesium Specimen Hemolysis Random Vancomycin 22.6 09/30/19 07:36 PT INR APTT PTT Ratio Sodium Potassium Chloride Carbon Dioxide Anion Gap BUN Creatinine Est Cr Clr Drug Dosing Est GFR ( Amer) Est GFR (Non-Af Amer) BUN/Creatinine Ratio Glucose POC Glucose 128 H Calcium Magnesium Specimen Hemolysis Random Vancomycin Medications Administered Current Inpatient Medications Acetaminophen (Tylenol) 650 mg PO Q4H PRN PRN Reason: Pain or Fever Stop: 10/27/19 16:41 Acyclovir (Zovirax) 400 mg PO BID [facility] Stop: 10/27/19 20:59 Last Admin: 09/30/19 08:04 Dose: 400 mg Documented by: Albuterol (Duoneb) 3 ml NEB QIDR [facility] Stop: 10/27/19 18:59 Last Admin: 09/30/19 10:49 Dose: 3 ml Documented by: Amlodipine Besylate (Norvasc) 10 mg PO QAM [facility] Stop: 10/29/19 08:59 Last Admin: 09/30/19 08:01 Dose: 10 mg Documented by: Amoxicillin/Clavulanate Potassium (Augmentin 500mg) 1 tab PO BID [facility]; Protocol Stop: 10/04/19 11:59 Last Admin: 09/30/19 11:06 Dose: 1 tab Documented by: Clopidogrel Bisulfate (Plavix) 75 mg PO DAILY [facility] Stop: 10/28/19 08:59 Last Admin: 09/30/19 08:04 Dose: 75 mg Documented by: Dextrose (Dextrose 50%) 25 - 50 ml IV UD PRN; Protocol PRN Reason: Hypoglycemia Protocol Stop: 10/27/19 16:41 Doxazosin Mesylate (Cardura) 8 mg PO HS [facility] Stop: 10/27/19 17:59 Last Admin: 09/29/19 21:01 Dose: 8 mg Documented by: Fish Oil (Ketchum-3 (Purified Fish Oil)) 1 gm PO BID [facility] Stop: 10/27/19 20:59 Last Admin: 09/30/19 07:59 Dose: 1 gm Documented by: Fluoxetine HCl (Prozac) 40 mg PO DAILY [facility] Stop: 10/28/19 08:59 Last Admin: 09/30/19 08:03 Dose: 40 mg Documented by: Fluticasone/Vilanterol (Breo Ellipta 200/25 Mcg Inh) 1 puffs INH DAILY [facility] Stop: 10/28/19 08:59 Last Admin: 09/30/19 08:05 Dose: 1 puffs Documented by: Furosemide (Lasix) 80 mg PO BID17 [facility] Stop: 10/30/19 08:59 Last Admin: 09/30/19 08:04 Dose: 80 mg Documented by: Glucagon (Glucagen) 1 mg SQ UD PRN; Protocol PRN Reason: Hypoglycemia Protocol Stop: 10/27/19 16:41 Glucose (Dex4 Glucose) 4 - 8 tabs PO UD PRN; Protocol PRN Reason: Hypoglycemia Protocol Stop: 10/27/19 16:41 Glucose (Glucose 40%) 15 - 30 gm PO UD PRN; Protocol PRN Reason: Hypoglycemia Protocol Stop: 10/27/19 16:41 Heparin Sodium (Porcine) (Heparin Sodium (Porcine)) 5,000 units SQ Q8 [facility] Stop: 10/27/19 21:59 Last Admin: 09/27/19 21:13 Dose: Not Given Documented by: Hydralazine HCl (Hydralazine Hcl) 5 mg IV Q4H PRN PRN Reason: SBP> 175 Stop: 10/27/19 19:17 Last Admin: 09/27/19 21:38 Dose: 5 mg Documented by: Hydralazine HCl (Apresoline) 10 mg PO Q8 [facility] Stop: 10/29/19 10:54 Last Admin: 09/30/19 06:43 Dose: 10 mg Documented by: Tobramycin Sulfate 150 mg/ (Syringe) 3.75 mls @ 0.033 mls/min INH Q12R [facility] Stop: 10/27/19 18:59 Last Admin: 09/30/19 06:55 Dose: 0.033 mls/min Documented by: Heparin Sodium/Dextrose (Heparin Sodium/Dextrose) 25,000 units in 500 mls @ 20 mls/hr IV .Q24H [facility]; Protocol Stop: 10/27/19 21:14 Last Titration: 09/30/19 07:53 Dose: 1,000 units/hr, 20 mls/hr Documented by: Insulin Aspart (Novolog Flexpen) 0 units SC ACHS [facility] Stop: 10/27/19 16:41 Last Admin: 09/30/19 07:56 Dose: 3 units Documented by: Magnesium Chloride (Slow-Mag) 64 mg PO DAILY [facility] Stop: 10/28/19 08:59 Last Admin: 09/30/19 08:01 Dose: 64 mg Documented by: Metoprolol Succinate (Toprol Xl) 100 mg PO DAILY [facility] Stop: 10/28/19 08:59 Last Admin: 09/30/19 08:02 Dose: 100 mg Documented by: Miscellaneous (Carbohydrates For Hypoglycemia) 15 - 30 gm PO UD PRN PRN Reason: Hypoglycemia Protocol Stop: 10/27/19 16:41 Miscellaneous (Order Awaiting Action) 1 ea N/A QS [facility] Stop: 10/28/19 00:00 Last Admin: 09/30/19 08:05 Dose: Not Given Documented by: Montelukast Sodium (Singulair) 10 mg PO QPM [facility] Stop: 10/28/19 20:59 Last Admin: 09/29/19 21:00 Dose: 10 mg Documented by: Mycophenolate Sodium (Myfortic) 180 mg PO BID [facility] Stop: 10/27/19 20:59 Last Admin: 09/30/19 08:05 Dose: 180 mg Documented by: Nitroglycerin (Nitrostat) 0.4 mg SL UD PRN PRN Reason: Chest Pain Stop: 10/27/19 16:41 Ondansetron HCl (Zofran) 4 mg IV Q6H PRN PRN Reason: Nausea Stop: 10/27/19 16:41 Pantoprazole Sodium (Protonix) 40 mg PO BID [facility] Stop: 10/27/19 20:59 Last Admin: 09/30/19 08:00 Dose: 40 mg Documented by: Polyethylene Glycol (Miralax Powder Packet) 17 gm PO DAILY PRN PRN Reason: Constipation Stop: 10/27/19 16:41 Prednisone (Prednisone) 5 mg PO DAILY [facility] Stop: 10/28/19 08:59 Last Admin: 09/30/19 08:03 Dose: 5 mg Documented by: Rosuvastatin Calcium (Crestor) 40 mg PO HS [facility] Stop: 10/27/19 20:59 Last Admin: 09/29/19 21:01 Dose: 40 mg Documented by: Sodium Bicarbonate (Sodium Bicarbonate) 1,300 mg PO TID [facility] Stop: 10/27/19 20:59 Last Admin: 09/30/19 07:59 Dose: 1,300 mg Documented by: Tacrolimus (Prograf) 0.5 mg PO BID [facility] Stop: 10/27/19 20:59 Last Admin: 09/30/19 08:00 Dose: 0.5 mg Documented by: Trimethoprim/Sulfamethoxazole (Septra 400/80mg Tab) 1 tab PO MoTh@0900 [facility] Stop: 10/28/19 08:59 Warfarin Sodium (Coumadin) 2 mg PO DAILY@1600 [facility] Stop: 10/29/19 15:59 Last Admin: 09/29/19 17:20 Dose: 2 mg Documented by: (1) Deep vein thrombosis (DVT) of brachial vein of right upper extremity Chronicity: acute Qualified Code(s): I82.621 - Acute embolism and thrombosis of deep veins of right upper extremity (2) Chest pain Chest pain type: precordial pain Qualified Code(s): R07.2 - Precordial pain
--- NOTE | 2019-09-30 12:09 | Nephrology Progress Note ---
Date of Service September 30, 2019 Assessment & Plan (1) CKD (chronic kidney disease): -- Baseline creatinine has risen to 4.0 mg/dL. Currently euvolemic. Electrolyte balance remains acceptable. No acute indication for HD at this time -- Follows with Dr. Sterling as outpatient. AVF mature for use when needed (2) HTN (hypertension): -- Admitted w/ hypertensive urgency -- Amlodipine and Hydralazine added to medical regimen. BP is now acceptable -- If BP again becomes difficult to control, would favor converting Hydralazine to SR NTG due to h/o ASCVD and current use of multiple vasodilators (3) Deep vein thrombosis (DVT) of brachial vein of right upper extremity: -- US reveals near occlusion of R brachial vein. 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 Immunosuppressive regimen consists of Prograf, Mycophenolate and Prednisone Subjective Mr. Bill was seen & examined in the PCU this morning. He denied HARRIS, angina or dyspnea. He voiced no new medical concerns. Review of Systems Constitutional: no fever Eyes: no problem reported Ear, Nose, Mouth, Throat: no problem reported Respiratory: no cough and no dyspnea Cardiovascular: no chest pain, no palpitations and no edema Gastrointestinal: no abdominal pain, no nausea, no vomiting and no diarrhea/loose stools Genitourinary: no dysuria, no urinary hesitancy and no hematuria Musculoskeletal: no back pain Integumentary: no rash Physical Exam Constitutional: + frail appearing; not in distress Eyes: PERRL, conjunctivae normal, anicteric sclerae ENMT: external ear and nose normal, oropharynx normal Neck: trachea midline, no thyromegaly Respiratory: normal respiratory effort, lungs clear to auscultation Cardiovascular: RRR, no murmur, no edema Extremities: + AV fistula (+ bruit) Gastrointestinal (Abdomen): normal bowel sounds, soft, nontender, no hepatosplenomegaly Musculoskeletal: Extremities: no cyanosis Skin: no rashes, warm and dry Neurologic: awake Results & Data Vital Signs (Past 12 Hours) Vital Signs Temp Pulse Pulse Resp BP Pulse Ox 09/30/19 11:18 36.4 C L 60 18 125/70 95 09/30/19 10:51 81 18 99 09/30/19 07:40 64 09/30/19 06:59 81 18 98 09/30/19 03:59 36.6 C 77 17 146/72 H 96 09/30/19 01:04 36.6 C 80 17 118/66 99 Laboratory Results Laboratory Tests 09/30/19 06:23 Sodium 138 Potassium 3.5 D Chloride 105 Carbon Dioxide 27 BUN 37 H Creatinine 3.91 H Glucose 110 H PG Care Time/CCT Total # of Minutes Spent Total Time Spent with Patient: Total time spent is greater than 50% in coordination of care (as documented) at patient's floor/unit and/or counseling patient: Coding Level of Care Code 68646 Subseq Hosp Care Lvl 3 Diagnoses CKD (chronic kidney disease) N18.9 Chronic kidney disease stage: unspecified stage HTN (hypertension) I10 Hypertension type: unspecified Deep vein thrombosis (DVT) of brachial vein of right upper extremity I82.621 Chronicity: acute Lung transplant status Z94.2 (1) CKD (chronic kidney disease) Chronic kidney disease stage: unspecified stage Qualified Code(s): N18.9 - Chronic kidney disease, unspecified (2) HTN (hypertension) Hypertension type: unspecified Qualified Code(s): I10 - Essential (primary) hypertension (3) Deep vein thrombosis (DVT) of brachial vein of right upper extremity Chronicity: acute Qualified Code(s): I82.621 - Acute embolism and thrombosis of deep veins of right upper extremity
[2019-09-30] MEDS: HEPARIN SODIUM/DEXTROSE 25,000 UNITS/500 ML BAG IV SCH ×2 (14:26→14:28)
[2019-09-30 15:12] LABS: Partial Thromboplastin Ratio 2.4
[2019-09-30 15:15] LABS: Partial Thromboplastin Time 66.1 Seconds (21.0-31.0)
[2019-09-30] MEDS: WARFARIN SOD 2 MG TAB PO SCH (16:29)
[2019-09-30] MEDS: ROSUVASTATIN CALCIUM 20 MG TAB PO SCH (20:18)
[2019-09-30] MEDS: DOXAZosin MESYLATE 4 MG TAB PO SCH (20:19)
[2019-09-30] MEDS: MONTELUKAST SODIUM 10 MG TABLET PO SCH (20:20)
[2019-10-01] MEDS: [UNRECOGNIZED DRUG - OTHER] SCH ×4 (00:30→23:02)
[2019-10-01 04:19] LABS: MPA Glucuronide <10.0 mcg/mL (35.0-100.0); Mycophenolic Acid <0.5 mcg/mL (1.0-3.5)
[2019-10-01] MEDS: HydrALAZINE 10 MG TAB PO SCH ×3 (05:34→20:40)
[2019-10-01 06:06] LABS: Hematocrit (blood only) 31.5 % (42-52); Hemoglobin 10.3 g/dL (14.0-18.0); Mean Corpuscular Hemoglobin 36.7 pg (25-34); Mean Corpuscular Hgb Conc 32.7 g/dL (32-36); Mean Corpuscular Volume 112.1 fL (80-100); Mean Platelet Volume 12.1 fL (7.4-10.4); Platelet Count 223 K/uL (130-400); RDW Standard Deviation 60.8 fL (36.4-46.3); Red Blood Count 2.81 M/uL (4.7-6.1); White Blood Count 6.35 K/uL (4.8-10.8)
[2019-10-01 06:27] LABS: INR 1.1 (0.9-1.1); Partial Thromboplastin Ratio 2.1; Prothrombin Time 11.1 Seconds (9.0-12.0)
[2019-10-01 06:28] LABS: Partial Thromboplastin Time 57.4 Seconds (21.0-31.0)
[2019-10-01 06:35] LABS: BUN Creatinine Ratio 8.8 (10-20); Creatinine Clr Calc Pharmacy 16.8 ml/min; Est GFR (African American) 15.5; Est GFR (Non-African American) 13.4; Potassium 3.8 mmol/L (3.5-5.1)
[2019-10-01] MEDS: ALBUT/IPRATROP 3MG/0.5MG NEB 3 ML VIAL NEB SCH ×4 (07:08→19:08)
[2019-10-01] MEDS: TOBRAMYCIN SULFATE INH SCH ×2 (07:08→19:08)
[2019-10-01] MEDS: FLUTICASONE/VILANTEROL 200/25MCG 14 PUFFS/INHALER INH SCH (07:35)
[2019-10-01] MEDS: AMOXICILLIN/CLAVULANATE 500 MG TAB PO SCH ×2 (07:36→20:37)
[2019-10-01] MEDS: MYCOPHENOLATE SODIUM 180 MG TAB PO SCH ×2 (07:37→20:37)
[2019-10-01] MEDS: PANTOprazole 40 MG TAB PO SCH ×2 (07:37→20:39)
[2019-10-01] MEDS: MAGNESIUM CHLORIDE 64MG DELAYED REL TAB PO SCH (07:37)
[2019-10-01] MEDS: AMLODIPINE BESYLATE 5 MG TAB PO SCH (07:37)
[2019-10-01] MEDS: CLOPIDOGREL BISULFATE 75 MG TAB PO SCH (07:38)
[2019-10-01] MEDS: OMEGA-3 (PURIFIED FISH OIL) 1 GM CAP PO SCH ×2 (07:38→20:37)
[2019-10-01] MEDS: predniSONE 5 MG TAB PO SCH (07:38)
[2019-10-01] MEDS: FLUOXETINE HCL 20 MG CAP PO SCH (07:38)
[2019-10-01] MEDS: FUROSEMIDE 80 MG TAB PO SCH ×2 (07:39→16:49)
[2019-10-01] MEDS: TACROLIMUS 0.5 MG CAP PO SCH ×2 (07:39→20:39)
[2019-10-01] MEDS: SODIUM BICARBONATE 650 MG TAB PO SCH ×3 (07:39→20:38)
[2019-10-01] MEDS: METOPROLOL SUCC 50MG EXT REL TAB PO SCH (07:39)
[2019-10-01] MEDS: ACYCLOVIR 400 MG TAB PO SCH ×2 (07:40→20:38)
[2019-10-01] MEDS: INSULIN ASPART 100 UNITS/ML 3 ML PEN SC SCH ×4 (09:13→20:40)
--- NOTE | 2019-10-01 09:27 | Nephrology Progress Note ---
Date of Service October 01, 2019 Assessment & Plan (1) CKD (chronic kidney disease): -- Baseline creatinine has risen to 4.0 mg/dL. Kidney function is stable at this time. Patient remains euvolemic. Electrolyte balance is acceptable. No acute indication for HD at this time -- Follows with Dr. Sterling as outpatient. AVF mature for use when needed (2) HTN (hypertension): -- Admitted w/ hypertensive urgency -- Amlodipine and Hydralazine added to medical regimen. BP is now acceptable -- If BP again becomes difficult to control, would favor converting Hydralazine to SR NTG due to h/o ASCVD and current use of multiple vasodilators (3) Deep vein thrombosis (DVT) of brachial vein of right upper extremity: -- US reveals near occlusion of R brachial vein. AVF remains patent -- Warfarin as per Cardiology and primary service. 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 Immunosuppressive regimen consists of Prograf, Mycophenolate and Prednisone Subjective Mr. Bill was seen & examined in the PCU this morning. He denied HARRIS, angina or dyspnea. The batteries for his hearing aides have failed. He is very [place]. He voiced no new medical concerns. SBP 118 - 155 mmHg last 24 hours with current regimen. Patient remains on heparin gtt. INR 1.1 this am. Review of Systems Constitutional: no fever Eyes: no problem reported Ear, Nose, Mouth, Throat: no problem reported Respiratory: no cough and no dyspnea Cardiovascular: no chest pain, no palpitations and no edema Gastrointestinal: no abdominal pain, no nausea, no vomiting and no diarrhea/loose stools Genitourinary: no dysuria, no urinary hesitancy and no hematuria Musculoskeletal: no back pain Integumentary: no rash Physical Exam Constitutional: + frail appearing; not in distress Eyes: PERRL, conjunctivae normal, anicteric sclerae ENMT: external ear and nose normal, oropharynx normal Neck: trachea midline, no thyromegaly Respiratory: normal respiratory effort Auscultation: + rales Cardiovascular: RRR, no murmur, no edema Extremities: + AV fistula (+ bruit) Gastrointestinal (Abdomen): normal bowel sounds, soft, nontender, no hepatosplenomegaly Musculoskeletal: Extremities: no cyanosis Skin: no rashes, warm and dry Neurologic: awake Results & Data Vital Signs (Past 12 Hours) Vital Signs Temp Pulse Pulse Resp BP BP Pulse Ox 10/01/19 07:08 76 14 98 10/01/19 07:06 36.6 C 68 18 128/57 L 99 10/01/19 03:34 36.6 C 74 19 131/62 100 09/30/19 23:59 69 09/30/19 23:30 36.7 C 76 19 155/71 H 96 Laboratory Results Laboratory Tests 10/01/19 10/01/19 05:32 05:32 WBC 6.35 Hgb 10.3 L Hct 31.5 L Plt Count 223 Sodium 136 Potassium 3.8 Chloride 106 Carbon Dioxide 26 BUN 35 H Creatinine 4.03 H Glucose 110 H PG Care Time/CCT Total # of Minutes Spent Total Time Spent with Patient: Total time spent is greater than 50% in coordination of care (as documented) at patient's floor/unit and/or counseling patient: Coding Level of Care Code 38380 Subseq Hosp Care Lvl 3 Diagnoses CKD (chronic kidney disease) N18.9 Chronic kidney disease stage: unspecified stage HTN (hypertension) I10 Hypertension type: unspecified Deep vein thrombosis (DVT) of brachial vein of right upper extremity I82.621 Chronicity: acute Lung transplant status Z94.2 (1) CKD (chronic kidney disease) Chronic kidney disease stage: unspecified stage Qualified Code(s): N18.9 - Chronic kidney disease, unspecified (2) HTN (hypertension) Hypertension type: unspecified Qualified Code(s): I10 - Essential (primary) hypertension (3) Deep vein thrombosis (DVT) of brachial vein of right upper extremity Chronicity: acute Qualified Code(s): I82.621 - Acute embolism and thrombosis of deep veins of right upper extremity
--- NOTE | 2019-10-01 10:52 | Hospitalist Progress Note ---
Date of Service October 01, 2019 Assessment & Plan (1) Chest pain: likely secondary to Hypertensive urgency, not ACS - CP resolved on admission - trop. mildly elevated (chronic) in setting of CKD - echo ordered and reviewed w/ cardiology, appreciate their input - pt initially received prn hydralazine and IV lasix - started amlodipine - BP improved but still hypertensive, hydralazine 10 mg every 8 hours initiated - no recurrent complaint of chest pain (2) Hypoxia: (3) CHF (congestive heart failure): Acute hypoxic respiratory failure - multiple etiologies Pulmonary edema in setting of hypertensive urgency Acute on chronic systolic HF Concern for poss. 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 difficile colitis (recurrent) who presented to ED secondary to chest pain and shortness of breath. Initially on 6L of suppl. O2 via EMS, then down to 3L of suppl. O2 in the ED. Chest pain has resolved with nitro per pt. Hypoxic requiring 3L of O2 via NC. 1st troponin elevated at .070, which is baseline for pt. No ST or t wave changes noted on EKG Pt significantly hypertensive in setting of ESRD. Chest CT: 1. Cardiomegaly. Intralobular septal thickening throughout the left lung suggests a component of congestive failure. 2. Groundglass consolidation is seen throughout the left lung. This could represent pulmonary edema and/or an infectious/inflammatory pneumonitis. Clinical correlation will be essential. 3. Small to moderate pleural effusions, left larger than right. 4. Changes of advanced interstitial lung disease are present in the right lung with evidence of previous surgery. Sx likely in setting of acute on chronic CHF with pulmonary edema (pt with hx of HFrEF with a repeat echo 12/29/2018 showing return of normal EF 55%) Gave Lasix 80mg IV on admission and x2 the next day Cardiology and nephrology consulted Spoke with Dr. Hansen (Pulmonary) to discuss CT results - Feels likely etiology Pulm edema in setting of HTN urgency vs infectious pneumonitis in setting of immunosuppression. Pt low risk for dat novel COVID due to no known exposure and pt has been at home. Ground glass opacities also seen on previous CT. Recommending starting broad spectrum antibiotics Started Vanco/zosyn - given pt is improving and his med. hx, recommend 7-10 days of Abx therapy sputum culture - ordered Clinically patient much improved, currently on room air, also not hypoxic with ambulation [facility] lung transplant center contacted, discussed with Dr. Lyndon Washington, who is aware about patient's admission Per nephrology, now on 80 mg p.o. Lasix twice daily RUE Brachial vein DVT - prior hx of RUE DVT, and b/l LE DVT - most recently treated for 3 months w/ warfarin - started on IV heparin - given pt is on ASA and plavix and has prior hx of GI bleed, d/c 'ed ASA (discussed w/ cardiology) - plan for initiation of warfarin, discussed this with pharmacy, lung transplant physician at [facility], as well as cardiology and nephrology here at [facility] -Monitor for bleeding (4) CKD (chronic kidney disease) stage 5, GFR less than 15 ml/min: Patient with acute on chronic CKD stage V Baseline creatinine 3.5, he does have matured AV fistula BUN/creatinine 40 and 4.08 Consulted nephrology, Dr. Burnett - case discussed on admission gave IV lasix 80mg x 1 on admission and x2 the next day Lasix 80 mg twice daily per nephrology (5) HTN (hypertension): Hypertensive URGENCY Patient significantly hypertensive in ED Likely in setting of volume overload, end-stage renal disease, and CHF IV Lasix 80 mg and prn hydralazine on admission continue metoprolol and cardura Started amlodipine - pt's BP improved, but patient still hypertensive, hydralazine 10 mg 3 times daily initiated (6) Hypomagnesemia: received 1g IV mag sulfated in ED monitor and replete as needed (7) Diabetes mellitus, type II: Last A1C in [employer] 5.5 09/2018 obtain A1C in a.m. insulin sliding scale per protocol (8) Idiopathic pulmonary fibrosis: History of left lung transplant in 2012 On tacrolimus, mycophenolate and prednisone Check tacrolimus and mycophenolate levels Continue Advair, tobramycin neb lower threshold to consult pulm if no improvement with diuresis (9) Lung transplant status: History of left lung transplant in 2013 On tacrolimus, mycophenolate and prednisone Check tacrolimus and mycophenolate levels Continue Advair, tobramycin neb Transplant Center at [facility] contacted (10) Paroxysmal atrial fibrillation: hx of pAFib/ Aflutter most recently off OAC due to hx of GIB continue metoprolol - now on IV heparin for RUE DVT, warfarin initiated - INR 1.1 (11) Hyperparathyroidism: continue calcitriol (12) Chronic anemia: H/H stable at 10/30.8 on aranesp weekly (13) HLD (hyperlipidemia): continue lovaza (14) DVT prophylaxis: SQ Heparin Disposition: admit to PCU Follow up: PCP Dr. Lindo upon discharge Admission and Anticipated Discharge Date Admission Date: September 27, 2019 Subjective No acute events overnight. Denies having any more hallucinations. Also denies any fever, chills, chest pain, shortness of breath, abd. pain, nausea or vomiting. Denies any blood in the stool. INR 1.1 Review of Systems Review of Systems: All systems reviewed & are unremarkable except as noted in HPI & below Constitutional: no fever and no chills Respiratory: no cough and no dyspnea Cardiovascular: no chest pain, no palpitations and no edema Gastrointestinal: no abdominal pain, no nausea and no vomiting Physical Exam Physical Exam: Constitutional: Chronically ill-appearing elderly male, lying in bed, in NAD, breathing comfortably on room air Head: Normocephalic, Atraumatic Eyes: PERRL, conjunctivae normal, anicteric sclerae ENMT: external ear and nose normal, oropharynx normal Neck: trachea midline, no thyromegaly normal visual inspection Respiratory: normal respiratory effort, mild rhonchi b/l, no crackles, no wheezing, no accessory muscle use Cardiovascular: regular, soft syst. murmur, no edema Vessels: no JVD appreciated or carotid bruit , right radial AV fistula Chest: normal inspection of chest Abdomen: normal bowel sounds, soft, nontender, nondistended Musculoskeletal: no cyanosis or clubbing, extremities motor strength 5/5, moves extremities spontaneously Skin: no rashes, warm and dry normal turgor Neuro/Psych: A+Ox3, euthymic affect, no facial palsy, no dysarthria, moves all extremities Results & Data Results & Data ([facility]) Vital Signs (Past 12 Hours) Vital Signs Temp Pulse Pulse Resp BP BP Pulse Ox 10/01/19 07:08 76 14 98 10/01/19 07:06 36.6 C 68 18 128/57 L 99 10/01/19 03:34 36.6 C 74 19 131/62 100 09/30/19 23:59 69 09/30/19 23:30 36.7 C 76 19 155/71 H 96 Laboratory Results 10/01/19 10/01/19 10/01/19 Range/Units 07:48 05:32 05:32 WBC 6.35 (4.8-10.8) K/uL RBC 2.81 L (4.7-6.1) M/uL Hgb 10.3 L (14.0-18.0) g/dL Hct 31.5 L (42-52) % MCV 112.1 H (80-100) fL MCH 36.7 H (25-34) pg MCHC 32.7 (32-36) g/dL RDW Std Deviation 60.8 H (36.4-46.3) fL RDW Coeff of Ros 15.0 H (11.5-14.5) % Plt Count 223 (130-400) K/uL MPV 12.1 H (7.4-10.4) fL PT (9.0-12.0) Seconds INR (0.9-1.1) APTT (21.0-31.0) Seconds PTT Ratio Sodium 136 (136-145) mmol/L Potassium 3.8 (3.5-5.1) mmol/L Chloride 106 (98-107) mmol/L Carbon Dioxide 26 (21-32) mmol/L Anion Gap 4.0 (3-11) BUN 35 H (7-18) mg/dl Creatinine 4.03 H (0.6-1.4) mg/dl Est Cr Clr Drug Dosing 16.8 ml/min Est GFR ( Amer) 15.5 Est GFR (Non-Af Amer) 13.4 BUN/Creatinine Ratio 8.8 L (10-20) Glucose 110 H (70-99) mg/dl POC Glucose 128 H (70-99) mg/dl Calcium 9.0 (8.5-10.1) mg/dl Mycophenolic Acid (1.0-3.5) mcg/mL MPA Glucuronide (35.0-100.0) mcg/mL 10/01/19 09/30/19 09/30/19 Range/Units 05:32 20:24 16:27 WBC (4.8-10.8) K/uL RBC (4.7-6.1) M/uL Hgb (14.0-18.0) g/dL Hct (42-52) % MCV (80-100) fL MCH (25-34) pg MCHC (32-36) g/dL RDW Std Deviation (36.4-46.3) fL RDW Coeff of Ros (11.5-14.5) % Plt Count (130-400) K/uL MPV (7.4-10.4) fL PT 11.1 (9.0-12.0) Seconds INR 1.1 (0.9-1.1) APTT 57.4 H* (21.0-31.0) Seconds PTT Ratio 2.1 Sodium (136-145) mmol/L Potassium (3.5-5.1) mmol/L Chloride (98-107) mmol/L Carbon Dioxide (21-32) mmol/L Anion Gap (3-11) BUN (7-18) mg/dl Creatinine (0.6-1.4) mg/dl Est Cr Clr Drug Dosing ml/min Est GFR ( Amer) Est GFR (Non-Af Amer) BUN/Creatinine Ratio (10-20) Glucose (70-99) mg/dl POC Glucose 142 H 145 H (70-99) mg/dl Calcium (8.5-10.1) mg/dl Mycophenolic Acid (1.0-3.5) mcg/mL MPA Glucuronide (35.0-100.0) mcg/mL 09/30/19 09/30/19 09/27/19 Range/Units 14:32 11:30 18:39 WBC (4.8-10.8) K/uL RBC (4.7-6.1) M/uL Hgb (14.0-18.0) g/dL Hct (42-52) % MCV (80-100) fL MCH (25-34) pg MCHC (32-36) g/dL RDW Std Deviation (36.4-46.3) fL RDW Coeff of Ros (11.5-14.5) % Plt Count (130-400) K/uL MPV (7.4-10.4) fL PT (9.0-12.0) Seconds INR (0.9-1.1) APTT 66.1 H* (21.0-31.0) Seconds PTT Ratio 2.4 Sodium (136-145) mmol/L Potassium (3.5-5.1) mmol/L Chloride (98-107) mmol/L Carbon Dioxide (21-32) mmol/L Anion Gap (3-11) BUN (7-18) mg/dl Creatinine (0.6-1.4) mg/dl Est Cr Clr Drug Dosing ml/min Est GFR ( Amer) Est GFR (Non-Af Amer) BUN/Creatinine Ratio (10-20) Glucose (70-99) mg/dl POC Glucose 189 H (70-99) mg/dl Calcium (8.5-10.1) mg/dl Mycophenolic Acid <0.5 L* (1.0-3.5) mcg/mL MPA Glucuronide <10.0 L (35.0-100.0) mcg/mL Medications Administered Current Inpatient Medications Acetaminophen (Tylenol) 650 mg PO Q4H PRN PRN Reason: Pain or Fever Stop: 10/27/19 16:41 Acyclovir (Zovirax) 400 mg PO BID [facility] Stop: 10/27/19 20:59 Last Admin: 10/01/19 07:40 Dose: 400 mg Documented by: Albuterol (Duoneb) 3 ml NEB QIDR [facility] Stop: 10/27/19 18:59 Last Admin: 10/01/19 07:08 Dose: 3 ml Documented by: Amlodipine Besylate (Norvasc) 10 mg PO QAM [facility] Stop: 10/29/19 08:59 Last Admin: 10/01/19 07:37 Dose: 10 mg Documented by: Amoxicillin/Clavulanate Potassium (Augmentin 500mg) 1 tab PO BID [facility]; Protocol Stop: 10/04/19 11:59 Last Admin: 10/01/19 07:36 Dose: 1 tab Documented by: Clopidogrel Bisulfate (Plavix) 75 mg PO DAILY [facility] Stop: 10/28/19 08:59 Last Admin: 10/01/19 07:38 Dose: 75 mg Documented by: Dextrose (Dextrose 50%) 25 - 50 ml IV UD PRN; Protocol PRN Reason: Hypoglycemia Protocol Stop: 10/27/19 16:41 Doxazosin Mesylate (Cardura) 8 mg PO HS [facility] Stop: 10/27/19 17:59 Last Admin: 09/30/19 20:19 Dose: 8 mg Documented by: Fish Oil ([place]-3 (Purified Fish Oil)) 1 gm PO BID [facility] Stop: 10/27/19 20:59 Last Admin: 10/01/19 07:38 Dose: 1 gm Documented by: Fluoxetine HCl (Prozac) 40 mg PO DAILY [facility] Stop: 10/28/19 08:59 Last Admin: 10/01/19 07:38 Dose: 40 mg Documented by: Fluticasone/Vilanterol (Breo Ellipta 200/25 Mcg Inh) 1 puffs INH DAILY [facility] Stop: 10/28/19 08:59 Last Admin: 10/01/19 07:35 Dose: 1 puffs Documented by: Furosemide (Lasix) 80 mg PO BID17 [facility] Stop: 10/30/19 08:59 Last Admin: 10/01/19 07:39 Dose: 80 mg Documented by: Glucagon (Glucagen) 1 mg SQ UD PRN; Protocol PRN Reason: Hypoglycemia Protocol Stop: 10/27/19 16:41 Glucose (Dex4 Glucose) 4 - 8 tabs PO UD PRN; Protocol PRN Reason: Hypoglycemia Protocol Stop: 10/27/19 16:41 Glucose (Glucose 40%) 15 - 30 gm PO UD PRN; Protocol PRN Reason: Hypoglycemia Protocol Stop: 10/27/19 16:41 Heparin Sodium (Porcine) (Heparin Sodium (Porcine)) 5,000 units SQ Q8 [facility] Stop: 10/27/19 21:59 Last Admin: 09/27/19 21:13 Dose: Not Given Documented by: Hydralazine HCl (Hydralazine Hcl) 5 mg IV Q4H PRN PRN Reason: SBP> 175 Stop: 10/27/19 19:17 Last Admin: 09/27/19 21:38 Dose: 5 mg Documented by: Hydralazine HCl (Apresoline) 10 mg PO Q8 [facility] Stop: 10/29/19 10:54 Last Admin: 10/01/19 05:34 Dose: 10 mg Documented by: Tobramycin Sulfate 150 mg/ (Syringe) 3.75 mls @ 0.033 mls/min INH Q12R [facility] Stop: 10/27/19 18:59 Last Admin: 10/01/19 07:08 Dose: 0.033 mls/min Documented by: Heparin Sodium/Dextrose (Heparin Sodium/Dextrose) 25,000 units in 500 mls @ 20 mls/hr IV .Q24H [facility]; Protocol Stop: 10/27/19 21:14 Last Titration: 10/01/19 07:14 Dose: 1,000 units/hr, 20 mls/hr Documented by: Insulin Aspart (Novolog Flexpen) 0 units SC ACHS [facility] Stop: 10/27/19 16:41 Last Admin: 10/01/19 09:13 Dose: Not Given Documented by: Magnesium Chloride (Slow-Mag) 64 mg PO DAILY [facility] Stop: 10/28/19 08:59 Last Admin: 10/01/19 07:37 Dose: 64 mg Documented by: Metoprolol Succinate (Toprol Xl) 100 mg PO DAILY [facility] Stop: 10/28/19 08:59 Last Admin: 10/01/19 07:39 Dose: 100 mg Documented by: Miscellaneous (Carbohydrates For Hypoglycemia) 15 - 30 gm PO UD PRN PRN Reason: Hypoglycemia Protocol Stop: 10/27/19 16:41 Miscellaneous (Order Awaiting Action) 1 ea N/A QS [facility] Stop: 10/28/19 00:00 Last Admin: 10/01/19 08:48 Dose: Not Given Documented by: Montelukast Sodium (Singulair) 10 mg PO QPM [facility] Stop: 10/28/19 20:59 Last Admin: 09/30/19 20:20 Dose: 10 mg Documented by: Mycophenolate Sodium (Myfortic) 180 mg PO BID [facility] Stop: 10/27/19 20:59 Last Admin: 10/01/19 07:37 Dose: 180 mg Documented by: Nitroglycerin (Nitrostat) 0.4 mg SL UD PRN PRN Reason: Chest Pain Stop: 10/27/19 16:41 Ondansetron HCl (Zofran) 4 mg IV Q6H PRN PRN Reason: Nausea Stop: 10/27/19 16:41 Pantoprazole Sodium (Protonix) 40 mg PO BID [facility] Stop: 10/27/19 20:59 Last Admin: 10/01/19 07:37 Dose: 40 mg Documented by: Polyethylene Glycol (Miralax Powder Packet) 17 gm PO DAILY PRN PRN Reason: Constipation Stop: 10/27/19 16:41 Prednisone (Prednisone) 5 mg PO DAILY [facility] Stop: 10/28/19 08:59 Last Admin: 10/01/19 07:38 Dose: 5 mg Documented by: Rosuvastatin Calcium (Crestor) 40 mg PO HS [facility] Stop: 10/27/19 20:59 Last Admin: 09/30/19 20:18 Dose: 40 mg Documented by: Sodium Bicarbonate (Sodium Bicarbonate) 1,300 mg PO TID [facility] Stop: 10/27/19 20:59 Last Admin: 10/01/19 07:39 Dose: 1,300 mg Documented by: Tacrolimus (Prograf) 0.5 mg PO BID [facility] Stop: 10/27/19 20:59 Last Admin: 10/01/19 07:39 Dose: 0.5 mg Documented by: Trimethoprim/Sulfamethoxazole (Septra 400/80mg Tab) 1 tab PO MoTh@0900 [facility] Stop: 10/28/19 08:59 Warfarin Sodium (Coumadin) 2 mg PO DAILY@1600 [facility] Stop: 10/29/19 15:59 Last Admin: 09/30/19 16:29 Dose: 2 mg Documented by: (1) Chest pain Chest pain type: precordial pain Qualified Code(s): R07.2 - Precordial pain (2) CHF (congestive heart failure) Heart failure chronicity: unspecified Heart failure type: unspecified Qualified Code(s): I50.9 - Heart failure, unspecified (3) HTN (hypertension) Hypertension type: unspecified Qualified Code(s): I10 - Essential (primary) hypertension
--- NOTE | 2019-10-01 11:36 | Cardiology Progress Note ---
Date of Service October 01, 2019 Assessment & Plan (1) Pulmonary edema: (2) Hypertensive urgency: (3) CHF (congestive heart failure): (4) Deep vein thrombosis (DVT) of brachial vein of right upper extremity: (5) Lung transplant recipient: The patient is currently clinically stable from cardiac standpoint. I would favor this patient being treated at home. He can be switched over to oral anticoagulation per the hospitalist. Subjective No new complaints today. Had an uneventful night. Review of Systems Review of Systems: Unobtainable due to cognitive status Physical Exam Physical Exam: General: no acute distress and stated age Head: normocephalic, no masses, lesions, tenderness or abnormalities Eyes: conjunctiva are pink and non-injected, sclera clear Neck: supple, no adenopathy, no bruits, normal jugular venous pulse, no hepatojugular reflux Chest: normal shape and normal respiratory effort Lungs: clear to auscultation and percussion Cardiac Exam: - regular rate & rhythm, no murmurs gallops or rubs - normal S1, normal S2 Pulses: 2(+) throughout Abdomen: abdomen soft, non-tender, no abnormal masses and no hepatosplenomegaly Musculoskeletal: no gait disturbance, no joint inflammation, no deforming arthritis Extremities: no edema and no cyanosis Neuro: grossly normal exam Results & Data Vital Signs (Past 12 Hours) Vital Signs Temp Pulse Pulse Resp BP BP Pulse Ox 10/01/19 10:56 75 16 98 10/01/19 07:08 76 14 98 10/01/19 07:06 36.6 C 68 18 128/57 L 99 10/01/19 03:34 36.6 C 74 19 131/62 100 09/30/19 23:59 69 Laboratory Results Laboratory Results - last 24 hr 09/27/19 09/30/19 09/30/19 18:39 11:30 14:32 WBC RBC Hgb Hct MCV MCH MCHC RDW Std Deviation RDW Coeff of Ros Plt Count MPV PT INR APTT 66.1 H* PTT Ratio 2.4 Sodium Potassium Chloride Carbon Dioxide Anion Gap BUN Creatinine Est Cr Clr Drug Dosing Est GFR ( Amer) Est GFR (Non-Af Amer) BUN/Creatinine Ratio Glucose POC Glucose 189 H Calcium Magnesium Mycophenolic Acid <0.5 L* MPA Glucuronide <10.0 L 09/30/19 09/30/19 10/01/19 16:27 20:24 05:32 WBC RBC Hgb Hct MCV MCH MCHC RDW Std Deviation RDW Coeff of Ros Plt Count MPV PT 11.1 INR 1.1 APTT 57.4 H* PTT Ratio 2.1 Sodium Potassium Chloride Carbon Dioxide Anion Gap BUN Creatinine Est Cr Clr Drug Dosing Est GFR ( Amer) Est GFR (Non-Af Amer) BUN/Creatinine Ratio Glucose POC Glucose 145 H 142 H Calcium Magnesium Mycophenolic Acid MPA Glucuronide 10/01/19 10/01/19 10/01/19 05:32 05:32 05:32 WBC 6.35 RBC 2.81 L Hgb 10.3 L Hct 31.5 L MCV 112.1 H MCH 36.7 H MCHC 32.7 RDW Std Deviation 60.8 H RDW Coeff of Ros 15.0 H Plt Count 223 MPV 12.1 H PT INR APTT PTT Ratio Sodium 136 Potassium 3.8 Chloride 106 Carbon Dioxide 26 Anion Gap 4.0 BUN 35 H Creatinine 4.03 H Est Cr Clr Drug Dosing 16.8 Est GFR ( Amer) 15.5 Est GFR (Non-Af Amer) 13.4 BUN/Creatinine Ratio 8.8 L Glucose 110 H POC Glucose Calcium 9.0 Magnesium 1.6 L Mycophenolic Acid MPA Glucuronide 10/01/19 10/01/19 07:48 11:25 WBC RBC Hgb Hct MCV MCH MCHC RDW Std Deviation RDW Coeff of Ros Plt Count MPV PT INR APTT PTT Ratio Sodium Potassium Chloride Carbon Dioxide Anion Gap BUN Creatinine Est Cr Clr Drug Dosing Est GFR ( Amer) Est GFR (Non-Af Amer) BUN/Creatinine Ratio Glucose POC Glucose 128 H 167 H Calcium Magnesium Mycophenolic Acid MPA Glucuronide Medications Administered Current Inpatient Medications Acetaminophen (Tylenol) 650 mg PO Q4H PRN PRN Reason: Pain or Fever Stop: 10/27/19 16:41 Acyclovir (Zovirax) 400 mg PO BID [facility] Stop: 10/27/19 20:59 Last Admin: 10/01/19 07:40 Dose: 400 mg Documented by: Albuterol (Duoneb) 3 ml NEB QIDR [facility] Stop: 10/27/19 18:59 Last Admin: 10/01/19 10:55 Dose: 3 ml Documented by: Amlodipine Besylate (Norvasc) 10 mg PO QAM [facility] Stop: 10/29/19 08:59 Last Admin: 10/01/19 07:37 Dose: 10 mg Documented by: Amoxicillin/Clavulanate Potassium (Augmentin 500mg) 1 tab PO BID [facility]; Protocol Stop: 10/04/19 11:59 Last Admin: 10/01/19 07:36 Dose: 1 tab Documented by: Clopidogrel Bisulfate (Plavix) 75 mg PO DAILY [facility] Stop: 10/28/19 08:59 Last Admin: 10/01/19 07:38 Dose: 75 mg Documented by: Dextrose (Dextrose 50%) 25 - 50 ml IV UD PRN; Protocol PRN Reason: Hypoglycemia Protocol Stop: 10/27/19 16:41 Doxazosin Mesylate (Cardura) 8 mg PO HS [facility] Stop: 10/27/19 17:59 Last Admin: 09/30/19 20:19 Dose: 8 mg Documented by: Fish Oil ([place]-3 (Purified Fish Oil)) 1 gm PO BID [facility] Stop: 10/27/19 20:59 Last Admin: 10/01/19 07:38 Dose: 1 gm Documented by: Fluoxetine HCl (Prozac) 40 mg PO DAILY [facility] Stop: 10/28/19 08:59 Last Admin: 10/01/19 07:38 Dose: 40 mg Documented by: Fluticasone/Vilanterol (Breo Ellipta 200/25 Mcg Inh) 1 puffs INH DAILY [facility] Stop: 10/28/19 08:59 Last Admin: 10/01/19 07:35 Dose: 1 puffs Documented by: Furosemide (Lasix) 80 mg PO BID17 [facility] Stop: 10/30/19 08:59 Last Admin: 10/01/19 07:39 Dose: 80 mg Documented by: Glucagon (Glucagen) 1 mg SQ UD PRN; Protocol PRN Reason: Hypoglycemia Protocol Stop: 10/27/19 16:41 Glucose (Dex4 Glucose) 4 - 8 tabs PO UD PRN; Protocol PRN Reason: Hypoglycemia Protocol Stop: 10/27/19 16:41 Glucose (Glucose 40%) 15 - 30 gm PO UD PRN; Protocol PRN Reason: Hypoglycemia Protocol Stop: 10/27/19 16:41 Heparin Sodium (Porcine) (Heparin Sodium (Porcine)) 5,000 units SQ Q8 [facility] Stop: 05/08/20 21:59 Last Admin: 09/27/19 21:13 Dose: Not Given Documented by: Hydralazine HCl (Hydralazine Hcl) 5 mg IV Q4H PRN PRN Reason: SBP> 175 Stop: 10/27/19 19:17 Last Admin: 09/27/19 21:38 Dose: 5 mg Documented by: Hydralazine HCl (Apresoline) 10 mg PO Q8 [facility] Stop: 10/29/19 10:54 Last Admin: 10/01/19 05:34 Dose: 10 mg Documented by: Tobramycin Sulfate 150 mg/ (Syringe) 3.75 mls @ 0.033 mls/min INH Q12R [facility] Stop: 10/27/19 18:59 Last Admin: 10/01/19 07:08 Dose: 0.033 mls/min Documented by: Heparin Sodium/Dextrose (Heparin Sodium/Dextrose) 25,000 units in 500 mls @ 20 mls/hr IV .Q24H [facility]; Protocol Stop: 10/27/19 21:14 Last Titration: 10/01/19 07:14 Dose: 1,000 units/hr, 20 mls/hr Documented by: Insulin Aspart (Novolog Flexpen) 0 units SC ACHS [facility] Stop: 10/27/19 16:41 Last Admin: 10/01/19 09:13 Dose: Not Given Documented by: Magnesium Chloride (Slow-Mag) 64 mg PO DAILY [facility] Stop: 10/28/19 08:59 Last Admin: 10/01/19 07:37 Dose: 64 mg Documented by: Metoprolol Succinate (Toprol Xl) 100 mg PO DAILY [facility] Stop: 10/28/19 08:59 Last Admin: 10/01/19 07:39 Dose: 100 mg Documented by: Miscellaneous (Carbohydrates For Hypoglycemia) 15 - 30 gm PO UD PRN PRN Reason: Hypoglycemia Protocol Stop: 10/27/19 16:41 Miscellaneous (Order Awaiting Action) 1 ea N/A QS [facility] Stop: 10/28/19 00:00 Last Admin: 10/01/19 08:48 Dose: Not Given Documented by: Montelukast Sodium (Singulair) 10 mg PO QPM [facility] Stop: 10/28/19 20:59 Last Admin: 09/30/19 20:20 Dose: 10 mg Documented by: Mycophenolate Sodium (Myfortic) 180 mg PO BID [facility] Stop: 10/27/19 20:59 Last Admin: 10/01/19 07:37 Dose: 180 mg Documented by: Nitroglycerin (Nitrostat) 0.4 mg SL UD PRN PRN Reason: Chest Pain Stop: 10/27/19 16:41 Ondansetron HCl (Zofran) 4 mg IV Q6H PRN PRN Reason: Nausea Stop: 10/27/19 16:41 Pantoprazole Sodium (Protonix) 40 mg PO BID [facility] Stop: 10/27/19 20:59 Last Admin: 10/01/19 07:37 Dose: 40 mg Documented by: Polyethylene Glycol (Miralax Powder Packet) 17 gm PO DAILY PRN PRN Reason: Constipation Stop: 10/27/19 16:41 Prednisone (Prednisone) 5 mg PO DAILY [facility] Stop: 10/28/19 08:59 Last Admin: 10/01/19 07:38 Dose: 5 mg Documented by: Rosuvastatin Calcium (Crestor) 40 mg PO HS [facility] Stop: 10/27/19 20:59 Last Admin: 09/30/19 20:18 Dose: 40 mg Documented by: Sodium Bicarbonate (Sodium Bicarbonate) 1,300 mg PO TID [facility] Stop: 10/27/19 20:59 Last Admin: 10/01/19 07:39 Dose: 1,300 mg Documented by: Tacrolimus (Prograf) 0.5 mg PO BID [facility] Stop: 10/27/19 20:59 Last Admin: 10/01/19 07:39 Dose: 0.5 mg Documented by: Trimethoprim/Sulfamethoxazole (Septra 400/80mg Tab) 1 tab PO MoTh@0900 [facility] Stop: 10/28/19 08:59 Warfarin Sodium (Coumadin) 2 mg PO DAILY@1600 [facility] Stop: 10/29/19 15:59 Last Admin: 09/30/19 16:29 Dose: 2 mg Documented by: (1) CHF (congestive heart failure) Heart failure chronicity: unspecified Heart failure type: unspecified Qualified Code(s): I50.9 - Heart failure, unspecified (2) Deep vein thrombosis (DVT) of brachial vein of right upper extremity Chronicity: acute Qualified Code(s): I82.621 - Acute embolism and thrombosis of deep veins of right upper extremity
[2019-10-01] MEDS: WARFARIN SOD 2 MG TAB PO SCH (16:48)
[2019-10-01] MEDS: HEPARIN SODIUM/DEXTROSE 25,000 UNITS/500 ML BAG IV SCH (16:54)
[2019-10-01] MEDS: DOXAZosin MESYLATE 4 MG TAB PO SCH (20:39)
[2019-10-01] MEDS: MONTELUKAST SODIUM 10 MG TABLET PO SCH (20:39)
[2019-10-01] MEDS: ROSUVASTATIN CALCIUM 20 MG TAB PO SCH (20:40)
[2019-10-02] MEDS: HydrALAZINE 10 MG TAB PO SCH ×3 (05:33→20:36)
[2019-10-02 06:05] LABS: INR 1.1 (0.9-1.1); Prothrombin Time 11.7 Seconds (9.0-12.0)
[2019-10-02 06:16] LABS: BUN Creatinine Ratio 9.3 (10-20); Calcium 8.9 mg/dl (8.5-10.1); Creatinine Clr Calc Pharmacy 16.9 ml/min; Est GFR (African American) 15.5; Est GFR (Non-African American) 13.4; Potassium 3.4 mmol/L (3.5-5.1)
[2019-10-02] MEDS: TOBRAMYCIN SULFATE INH SCH ×2 (07:14→19:31)
[2019-10-02] MEDS: ALBUT/IPRATROP 3MG/0.5MG NEB 3 ML VIAL NEB SCH ×2 (07:14→19:08)
[2019-10-02 07:41] LABS: Partial Thromboplastin Ratio 2.4
[2019-10-02 07:44] LABS: Partial Thromboplastin Time 66.6 Seconds (21.0-31.0)
[2019-10-02] MEDS: AMOXICILLIN/CLAVULANATE 500 MG TAB PO SCH ×2 (07:46→20:36)
[2019-10-02] MEDS: FLUOXETINE HCL 20 MG CAP PO SCH (07:47)
[2019-10-02] MEDS: AMLODIPINE BESYLATE 5 MG TAB PO SCH (07:47)
[2019-10-02] MEDS: METOPROLOL SUCC 50MG EXT REL TAB PO SCH (07:47)
[2019-10-02] MEDS: MAGNESIUM CHLORIDE 64MG DELAYED REL TAB PO SCH (07:47)
[2019-10-02] MEDS: CLOPIDOGREL BISULFATE 75 MG TAB PO SCH (07:47)
[2019-10-02] MEDS: SULFA/TRIMETH 400/80MG TAB PO SCH (07:48)
[2019-10-02] MEDS: predniSONE 5 MG TAB PO SCH (07:48)
[2019-10-02] MEDS: PANTOprazole 40 MG TAB PO SCH ×2 (07:48→20:35)
[2019-10-02] MEDS: ACYCLOVIR 400 MG TAB PO SCH ×2 (07:48→20:36)
[2019-10-02] MEDS: SODIUM BICARBONATE 650 MG TAB PO SCH ×3 (07:48→20:34)
[2019-10-02] MEDS: OMEGA-3 (PURIFIED FISH OIL) 1 GM CAP PO SCH ×2 (07:48→20:35)
[2019-10-02] MEDS: [UNRECOGNIZED DRUG - OTHER] SCH ×2 (07:49→16:32)
[2019-10-02] MEDS: FUROSEMIDE 80 MG TAB PO SCH ×2 (07:49→15:53)
[2019-10-02] MEDS: FLUTICASONE/VILANTEROL 200/25MCG 14 PUFFS/INHALER INH SCH (07:49)
[2019-10-02] MEDS: MYCOPHENOLATE SODIUM 180 MG TAB PO SCH ×2 (07:49→20:34)
[2019-10-02] MEDS: INSULIN ASPART 100 UNITS/ML 3 ML PEN SC SCH ×4 (07:50→20:32)
[2019-10-02] MEDS: TACROLIMUS 0.5 MG CAP PO SCH ×2 (08:48→20:34)
--- NOTE | 2019-10-02 10:01 | Nephrology Progress Note ---
Date of Service October 02, 2019 Assessment & Plan (1) CKD (chronic kidney disease): -- Baseline creatinine has risen to 4.0 mg/dL. Kidney function is stable at this time. Patient remains euvolemic. Electrolyte balance is acceptable. He has no uremic symptoms. No acute indication for HD at this time -- Follows with Dr. Sterling as outpatient. AVF mature for use when needed (2) HTN (hypertension): -- Admitted w/ hypertensive urgency -- Amlodipine and Hydralazine added to medical regimen. BP is now acceptable -- If BP again becomes difficult to control, would favor converting Hydralazine to SR NTG due to h/o ASCVD and current use of multiple vasodilators (3) Deep vein thrombosis (DVT) of brachial vein of right upper extremity: -- US reveals near occlusion of R brachial vein. AVF remains patent -- Warfarin as per Cardiology and primary service. 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 Immunosuppressive regimen consists of Prograf, Mycophenolate and Prednisone. Pulmonary status is stable at this time Subjective Mr. Bill was seen & examined in the PCU this morning. He denied HARRIS, angina or dyspnea. The batteries for his hearing aides have failed. He is very MINTO. He voiced no new medical concerns. SBP 118 - 155 mmHg last 24 hours with current regimen. Patient remains on heparin gtt. INR 1.1 this am. Review of Systems Constitutional: no fever Eyes: no problem reported Ear, Nose, Mouth, Throat: no problem reported Respiratory: no cough and no dyspnea Cardiovascular: no chest pain, no palpitations and no edema Gastrointestinal: no abdominal pain, no nausea, no vomiting and no diarrhea/loose stools Genitourinary: no dysuria, no urinary hesitancy and no hematuria Musculoskeletal: no back pain Integumentary: no rash Physical Exam Constitutional: + frail appearing; not in distress Eyes: PERRL, conjunctivae normal, anicteric sclerae ENMT: external ear and nose normal, oropharynx normal Neck: trachea midline, no thyromegaly Respiratory: normal respiratory effort, lungs clear to auscultation normal respiratory effort Auscultation: + rales Cardiovascular: RRR, no murmur, no edema Extremities: + AV fistula (+ bruit) Gastrointestinal (Abdomen): normal bowel sounds, soft, nontender, no hepatosplenomegaly Musculoskeletal: Extremities: no cyanosis Skin: no rashes, warm and dry Neurologic: awake Results & Data Vital Signs (Past 12 Hours) Vital Signs Temp Pulse Pulse Resp BP Pulse Ox 10/02/19 07:59 36.6 C 72 20 153/71 H 93 10/02/19 07:30 59 L 10/02/19 07:16 76 18 98 10/02/19 05:04 36.6 C 60 18 138/53 L 99 10/02/19 00:21 36.6 C 65 17 126/46 L 98 10/01/19 23:16 66 Laboratory Results Laboratory Tests 10/01/19 10/02/19 10/02/19 05:32 05:24 05:24 WBC 6.35 Hgb 10.3 L Hct 31.5 L Plt Count 223 INR 1.1 Sodium 140 Potassium 3.4 L Chloride 105 Carbon Dioxide 26 BUN 37 H Creatinine 4.03 H Glucose 104 H PG Care Time/CCT Total # of Minutes Spent Total Time Spent with Patient: Total time spent is greater than 50% in coordination of care (as documented) at patient's floor/unit and/or counseling patient: Coding Level of Care Code 93628 Subseq Hosp Care Lvl 3 Diagnoses CKD (chronic kidney disease) N18.9 Chronic kidney disease stage: unspecified stage HTN (hypertension) I10 Hypertension type: unspecified Deep vein thrombosis (DVT) of brachial vein of right upper extremity I82.621 Chronicity: acute Lung transplant status Z94.2 (1) CKD (chronic kidney disease) Chronic kidney disease stage: unspecified stage Qualified Code(s): N18.9 - Chronic kidney disease, unspecified (2) HTN (hypertension) Hypertension type: unspecified Qualified Code(s): I10 - Essential (primary) hypertension (3) Deep vein thrombosis (DVT) of brachial vein of right upper extremity Chronicity: acute Qualified Code(s): I82.621 - Acute embolism and thrombosis of deep veins of right upper extremity
--- NOTE | 2019-10-02 10:16 | Hospitalist Progress Note ---
Date of Service October 02, 2019 Assessment & Plan (1) Chest pain: likely secondary to Hypertensive urgency, not ACS - CP resolved on admission - trop. mildly elevated (chronic) in setting of CKD - echo ordered and reviewed w/ cardiology, appreciate their input - pt initially received prn hydralazine and IV lasix - started amlodipine - BP improved but still hypertensive, hydralazine 10 mg every 8 hours initiated - no recurrent complaint of chest pain (2) Hypoxia: (3) CHF (congestive heart failure): Acute hypoxic respiratory failure - multiple etiologies Pulmonary edema in setting of hypertensive urgency Acute on chronic systolic HF Concern for poss. 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 difficile colitis (recurrent) who presented to ED secondary to chest pain and shortness of breath. Initially on 6L of suppl. O2 via EMS, then down to 3L of suppl. O2 in the ED. Chest pain has resolved with nitro per pt. Hypoxic requiring 3L of O2 via NC. 1st troponin elevated at .070, which is baseline for pt. No ST or t wave changes noted on EKG Pt significantly hypertensive in setting of ESRD. Chest CT: 1. Cardiomegaly. Intralobular septal thickening throughout the left lung suggests a component of congestive failure. 2. Groundglass consolidation is seen throughout the left lung. This could represent pulmonary edema and/or an infectious/inflammatory pneumonitis. Clinical correlation will be essential. 3. Small to moderate pleural effusions, left larger than right. 4. Changes of advanced interstitial lung disease are present in the right lung with evidence of previous surgery. Sx likely in setting of acute on chronic CHF with pulmonary edema (pt with hx of HFrEF with a repeat echo 12/29/2018 showing return of normal EF 55%) Gave Lasix 80mg IV on admission and x2 the next day Cardiology and nephrology consulted Spoke with Dr. Hansen (Pulmonary) to discuss CT results - Feels likely etiology Pulm edema in setting of HTN urgency vs infectious pneumonitis in setting of immunosuppression. Pt low risk for dat novel COVID due to no known exposure and pt has been at home. Ground glass opacities also seen on previous CT. Recommending starting broad spectrum antibiotics Started Vanco/zosyn - given pt is improving and his med. hx, recommend 7-10 days of Abx therapy sputum culture - ordered Clinically patient much improved, currently on room air, also not hypoxic with ambulation [facility] lung transplant center contacted, discussed with Dr. Lyndon Washington, who is aware about patient's admission Per nephrology, now on 80 mg p.o. Lasix twice daily RUE Brachial vein DVT - prior hx of RUE DVT, and b/l LE DVT - most recently treated for 3 months w/ warfarin - started on IV heparin - given pt is on ASA and plavix and has prior hx of GI bleed, d/c 'ed ASA (discussed w/ cardiology) - started warfarin, discussed this with pharmacy, lung transplant physician at [facility], as well as cardiology and nephrology here at [facility] - previously discharged on 2.5 mg, started pt on 2 mg daily - Monitor for bleeding (4) CKD (chronic kidney disease) stage 5, GFR less than 15 ml/min: Patient with acute on chronic CKD stage V Baseline creatinine 3.5, he does have matured AV fistula BUN/creatinine 40 and 4.08 Consulted nephrology, Dr. Burnett - case discussed on admission gave IV lasix 80mg x 1 on admission and x2 the next day Now on PO Lasix 80 mg twice daily per nephrology (5) HTN (hypertension): Hypertensive URGENCY Patient significantly hypertensive in ED Likely in setting of volume overload, end-stage renal disease, and CHF IV Lasix 80 mg and prn hydralazine on admission continue metoprolol and cardura Started amlodipine - pt's BP improved, but patient still hypertensive, hydralazine 10 mg 3 times daily initiated (6) Hypomagnesemia: received 1g IV mag sulfated in ED monitor and replete as needed (7) Diabetes mellitus, type II: Last A1C in Drop Messages 5.5 09/2018 Current A1C 5.5% as well, well controlled insulin sliding scale per protocol (8) Idiopathic pulmonary fibrosis: History of left lung transplant in 2012 On tacrolimus, mycophenolate and prednisone Check tacrolimus and mycophenolate levels Continue Advair, tobramycin neb lower threshold to consult pulm if no improvement with diuresis (9) Lung transplant status: History of left lung transplant in 2013 On tacrolimus, mycophenolate and prednisone Check tacrolimus and mycophenolate levels Continue Advair, tobramycin neb Transplant Center at [facility] contacted (10) Paroxysmal atrial fibrillation: hx of pAFib/ Aflutter most recently off OAC due to hx of GIB continue metoprolol - now on IV heparin for RUE DVT, warfarin initiated - INR 1.1 (11) Hyperparathyroidism: continue calcitriol (12) Chronic anemia: H/H stable at 10/30.8 on aranesp weekly (13) HLD (hyperlipidemia): continue lovaza (14) DVT prophylaxis: SQ Heparin Disposition: admit to PCU Follow up: PCP Dr. Lindo upon discharge Admission and Anticipated Discharge Date Admission Date: September 27, 2019 Subjective No acute events overnight. Patient is lying in bed, in no acute distress, comfortable. Denies any fevers, chills, chest pain, shortness of breath, abdominal pain, nausea or vomiting. INR 1.1 Review of Systems Review of Systems: All systems reviewed & are unremarkable except as noted in HPI & below Constitutional: no fever and no chills Respiratory: no cough and no dyspnea Cardiovascular: no chest pain, no palpitations and no edema Gastrointestinal: no abdominal pain, no nausea, no vomiting and no blood in stools Physical Exam Physical Exam: Constitutional: Chronically ill-appearing elderly male, lying in bed, in NAD, breathing comfortably on room air Head: Normocephalic, Atraumatic Eyes: PERRL, conjunctivae normal, anicteric sclerae ENMT: external ear and nose normal, oropharynx normal Neck: trachea midline, no thyromegaly normal visual inspection Respiratory: normal respiratory effort, CTAB only very mild rhonchi b/l, no crackles, no wheezing, no accessory muscle use Cardiovascular: regular, soft syst. murmur, no edema Vessels: no JVD appreciated or carotid bruit , right radial AV fistula Chest: normal inspection of chest Abdomen: normal bowel sounds, soft, nontender, nondistended Musculoskeletal: no cyanosis or clubbing, extremities motor strength 5/5, moves extremities spontaneously Skin: no rashes, warm and dry normal turgor Neuro/Psych: A+Ox3, euthymic affect, no facial palsy, no dysarthria, moves all extremities Results & Data Results & Data ([facility]) Vital Signs (Past 12 Hours) Vital Signs Temp Pulse Pulse Resp BP Pulse Ox 10/02/19 07:59 36.6 C 72 20 153/71 H 93 10/02/19 07:30 59 L 10/02/19 07:16 76 18 98 10/02/19 05:04 36.6 C 60 18 138/53 L 99 10/02/19 00:21 36.6 C 65 17 126/46 L 98 10/01/19 23:16 66 Laboratory Results 10/02/19 10/02/19 10/02/19 Range/Units 07:57 05:24 05:24 PT 11.7 (9.0-12.0) Seconds INR 1.1 (0.9-1.1) APTT 66.6 H* (21.0-31.0) Seconds PTT Ratio 2.4 Sodium (136-145) mmol/L Potassium (3.5-5.1) mmol/L Chloride (98-107) mmol/L Carbon Dioxide (21-32) mmol/L Anion Gap (3-11) BUN (7-18) mg/dl Creatinine (0.6-1.4) mg/dl Est Cr Clr Drug Dosing ml/min Est GFR ( Amer) Est GFR (Non-Af Amer) BUN/Creatinine Ratio (10-20) Glucose (70-99) mg/dl POC Glucose 117 H (70-99) mg/dl Calcium (8.5-10.1) mg/dl Magnesium (1.8-2.4) mg/dl 10/02/19 10/01/19 10/01/19 Range/Units 05:24 20:40 16:30 PT (9.0-12.0) Seconds INR (0.9-1.1) APTT (21.0-31.0) Seconds PTT Ratio Sodium 140 (136-145) mmol/L Potassium 3.4 L (3.5-5.1) mmol/L Chloride 105 (98-107) mmol/L Carbon Dioxide 26 (21-32) mmol/L Anion Gap 9.0 (3-11) BUN 37 H (7-18) mg/dl Creatinine 4.03 H (0.6-1.4) mg/dl Est Cr Clr Drug Dosing 16.9 ml/min Est GFR ( Amer) 15.5 Est GFR (Non-Af Amer) 13.4 BUN/Creatinine Ratio 9.3 L (10-20) Glucose 104 H (70-99) mg/dl POC Glucose 140 H 116 H (70-99) mg/dl Calcium 8.9 (8.5-10.1) mg/dl Magnesium (1.8-2.4) mg/dl 10/01/19 10/01/19 Range/Units 11:25 05:32 PT (9.0-12.0) Seconds INR (0.9-1.1) APTT (21.0-31.0) Seconds PTT Ratio Sodium (136-145) mmol/L Potassium (3.5-5.1) mmol/L Chloride (98-107) mmol/L Carbon Dioxide (21-32) mmol/L Anion Gap (3-11) BUN (7-18) mg/dl Creatinine (0.6-1.4) mg/dl Est Cr Clr Drug Dosing ml/min Est GFR ( Amer) Est GFR (Non-Af Amer) BUN/Creatinine Ratio (10-20) Glucose (70-99) mg/dl POC Glucose 167 H (70-99) mg/dl Calcium (8.5-10.1) mg/dl Magnesium 1.6 L (1.8-2.4) mg/dl Medications Administered Current Inpatient Medications Acetaminophen (Tylenol) 650 mg PO Q4H PRN PRN Reason: Pain or Fever Stop: 10/27/19 16:41 Acyclovir (Zovirax) 400 mg PO BID [facility] Stop: 10/27/19 20:59 Last Admin: 10/02/19 07:48 Dose: 400 mg Documented by: Albuterol (Duoneb) 3 ml NEB BIDR [facility] Stop: 10/31/19 18:59 Last Admin: 10/02/19 07:14 Dose: 3 ml Documented by: Amlodipine Besylate (Norvasc) 10 mg PO QAM [facility] Stop: 10/29/19 08:59 Last Admin: 10/02/19 07:47 Dose: 10 mg Documented by: Amoxicillin/Clavulanate Potassium (Augmentin 500mg) 1 tab PO BID [facility]; Protocol Stop: 10/04/19 11:59 Last Admin: 10/02/19 07:46 Dose: 1 tab Documented by: Clopidogrel Bisulfate (Plavix) 75 mg PO DAILY [facility] Stop: 10/28/19 08:59 Last Admin: 10/02/19 07:47 Dose: 75 mg Documented by: Dextrose (Dextrose 50%) 25 - 50 ml IV UD PRN; Protocol PRN Reason: Hypoglycemia Protocol Stop: 10/27/19 16:41 Doxazosin Mesylate (Cardura) 8 mg PO HS [facility]YS Stop: 10/27/19 17:59 Last Admin: 10/01/19 20:39 Dose: 8 mg Documented by: Fish Oil (Cassel-3 (Purified Fish Oil)) 1 gm PO BID [facility] Stop: 10/27/19 20:59 Last Admin: 10/02/19 07:48 Dose: 1 gm Documented by: Fluoxetine HCl (Prozac) 40 mg PO DAILY [facility] Stop: 10/28/19 08:59 Last Admin: 10/02/19 07:47 Dose: 40 mg Documented by: Fluticasone/Vilanterol (Breo Ellipta 200/25 Mcg Inh) 1 puffs INH DAILY [facility] Stop: 10/28/19 08:59 Last Admin: 10/02/19 07:49 Dose: 1 puffs Documented by: Furosemide (Lasix) 80 mg PO BID17 [facility] Stop: 10/30/19 08:59 Last Admin: 10/02/19 07:49 Dose: 80 mg Documented by: Glucagon (Glucagen) 1 mg SQ UD PRN; Protocol PRN Reason: Hypoglycemia Protocol Stop: 10/27/19 16:41 Glucose (Dex4 Glucose) 4 - 8 tabs PO UD PRN; Protocol PRN Reason: Hypoglycemia Protocol Stop: 10/27/19 16:41 Glucose (Glucose 40%) 15 - 30 gm PO UD PRN; Protocol PRN Reason: Hypoglycemia Protocol Stop: 10/27/19 16:41 Heparin Sodium (Porcine) (Heparin Sodium (Porcine)) 5,000 units SQ Q8 [facility] Stop: 10/27/19 21:59 Last Admin: 09/27/19 21:13 Dose: Not Given Documented by: Hydralazine HCl (Hydralazine Hcl) 5 mg IV Q4H PRN PRN Reason: SBP> 175 Stop: 10/27/19 19:17 Last Admin: 09/27/19 21:38 Dose: 5 mg Documented by: Hydralazine HCl (Apresoline) 10 mg PO Q8 [facility] Stop: 10/29/19 10:54 Last Admin: 10/02/19 05:33 Dose: 10 mg Documented by: Tobramycin Sulfate 150 mg/ (Syringe) 3.75 mls @ 0.033 mls/min INH Q12R [facility] Stop: 10/27/19 18:59 Last Admin: 10/02/19 07:14 Dose: 0.033 mls/min Documented by: Heparin Sodium/Dextrose (Heparin Sodium/Dextrose) 25,000 units in 500 mls @ 18 mls/hr IV .Q24H [facility]; Protocol Stop: 10/27/19 21:14 Last Titration: 10/02/19 08:03 Dose: 900 units/hr, 18 mls/hr Documented by: Insulin Aspart (Novolog Flexpen) 0 units SC ACHS [facility] Stop: 10/27/19 16:41 Last Admin: 10/02/19 07:50 Dose: 1 units Documented by: Magnesium Chloride (Slow-Mag) 64 mg PO DAILY [facility] Stop: 10/28/19 08:59 Last Admin: 10/02/19 07:47 Dose: 64 mg Documented by: Metoprolol Succinate (Toprol Xl) 100 mg PO DAILY [facility] Stop: 10/28/19 08:59 Last Admin: 10/02/19 07:47 Dose: 100 mg Documented by: Miscellaneous (Carbohydrates For Hypoglycemia) 15 - 30 gm PO UD PRN PRN Reason: Hypoglycemia Protocol Stop: 10/27/19 16:41 Miscellaneous (Order Awaiting Action) 1 ea N/A QS [facility] Stop: 10/28/19 00:00 Last Admin: 10/02/19 07:49 Dose: Not Given Documented by: Montelukast Sodium (Singulair) 10 mg PO QPM [facility] Stop: 10/28/19 20:59 Last Admin: 10/01/19 20:39 Dose: 10 mg Documented by: Mycophenolate Sodium (Myfortic) 180 mg PO BID [facility] Stop: 10/27/19 20:59 Last Admin: 10/02/19 07:49 Dose: 180 mg Documented by: Nitroglycerin (Nitrostat) 0.4 mg SL UD PRN PRN Reason: Chest Pain Stop: 10/27/19 16:41 Ondansetron HCl (Zofran) 4 mg IV Q6H PRN PRN Reason: Nausea Stop: 10/27/19 16:41 Pantoprazole Sodium (Protonix) 40 mg PO BID [facility] Stop: 10/27/19 20:59 Last Admin: 10/02/19 07:48 Dose: 40 mg Documented by: Polyethylene Glycol (Miralax Powder Packet) 17 gm PO DAILY PRN PRN Reason: Constipation Stop: 10/27/19 16:41 Prednisone (Prednisone) 5 mg PO DAILY [facility] Stop: 10/28/19 08:59 Last Admin: 10/02/19 07:48 Dose: 5 mg Documented by: Rosuvastatin Calcium (Crestor) 40 mg PO HS [facility] Stop: 10/27/19 20:59 Last Admin: 10/01/19 20:40 Dose: 40 mg Documented by: Sodium Bicarbonate (Sodium Bicarbonate) 1,300 mg PO TID [facility] Stop: 10/27/19 20:59 Last Admin: 10/02/19 07:48 Dose: 1,300 mg Documented by: Tacrolimus (Prograf) 0.5 mg PO BID [facility] Stop: 10/27/19 20:59 Last Admin: 10/02/19 08:48 Dose: 0.5 mg Documented by: Trimethoprim/Sulfamethoxazole (Septra 400/80mg Tab) 1 tab PO MoTh@0900 [facility] Stop: 10/28/19 08:59 Last Admin: 10/02/19 07:48 Dose: 1 tab Documented by: Warfarin Sodium (Coumadin) 2 mg PO DAILY@1600 [facility] Stop: 10/29/19 15:59 Last Admin: 10/01/19 16:48 Dose: 2 mg Documented by: (1) CHF (congestive heart failure) Heart failure chronicity: unspecified Heart failure type: unspecified Qualified Code(s): I50.9 - Heart failure, unspecified (2) Chest pain Chest pain type: precordial pain Qualified Code(s): R07.2 - Precordial pain (3) HTN (hypertension) Hypertension type: unspecified Qualified Code(s): I10 - Essential (primary) hypertension
[2019-10-02] MEDS ORDERED: POTASSIUM CHLORIDE 20 MEQ TABCR PO STA (10:18)
--- NOTE | 2019-10-02 11:00 | Cardiology Progress Note ---
Date of Service October 02, 2019 Assessment & Plan (1) Lung transplant recipient: (2) Hypertensive urgency: (3) ADEEL (acute kidney injury): (4) DVT prophylaxis: The patient is clinically stable from a cardiac standpoint. When his INR is therapeutic I believe he can be discharged to outpatient follow-up. Subjective The patient had an uneventful night. We are still waiting for his INR to elevate. Review of Systems Review of Systems: All systems reviewed & are unremarkable except as noted in HPI & below Nothing additional to add. Physical Exam Physical Exam: General: no acute distress and stated age Head: normocephalic, no masses, lesions, tenderness or abnormalities Eyes: conjunctiva are pink and non-injected, sclera clear Neck: supple, no adenopathy, no bruits, normal jugular venous pulse, no hepatojugular reflux Chest: normal shape and normal respiratory effort Lungs: clear to auscultation and percussion Cardiac Exam: - regular rate & rhythm, no murmurs gallops or rubs - normal S1, normal S2 Pulses: 2(+) throughout Abdomen: abdomen soft, non-tender, no abnormal masses and no hepatosplenomegaly Musculoskeletal: no gait disturbance, no joint inflammation, no deforming arthritis Extremities: no edema and no cyanosis Neuro: grossly normal exam Results & Data Vital Signs (Past 12 Hours) Vital Signs Temp Pulse Pulse Resp BP Pulse Ox 10/02/19 07:59 36.6 C 72 20 153/71 H 93 10/02/19 07:30 59 L 10/02/19 07:16 76 18 98 10/02/19 05:04 36.6 C 60 18 138/53 L 99 10/02/19 00:21 36.6 C 65 17 126/46 L 98 10/01/19 23:16 66 Laboratory Results Laboratory Results - last 24 hr 10/01/19 10/01/19 10/01/19 05:32 11:25 16:30 PT INR APTT PTT Ratio Sodium Potassium Chloride Carbon Dioxide Anion Gap BUN Creatinine Est Cr Clr Drug Dosing Est GFR ( Amer) Est GFR (Non-Af Amer) BUN/Creatinine Ratio Glucose POC Glucose 167 H 116 H Calcium Magnesium 1.6 L 10/01/19 10/02/19 10/02/19 20:40 05:24 05:24 PT 11.7 INR 1.1 APTT PTT Ratio Sodium 140 Potassium 3.4 L Chloride 105 Carbon Dioxide 26 Anion Gap 9.0 BUN 37 H Creatinine 4.03 H Est Cr Clr Drug Dosing 16.9 Est GFR ( Amer) 15.5 Est GFR (Non-Af Amer) 13.4 BUN/Creatinine Ratio 9.3 L Glucose 104 H POC Glucose 140 H Calcium 8.9 Magnesium 10/02/19 10/02/19 05:24 07:57 PT INR APTT 66.6 H* PTT Ratio 2.4 Sodium Potassium Chloride Carbon Dioxide Anion Gap BUN Creatinine Est Cr Clr Drug Dosing Est GFR ( Amer) Est GFR (Non-Af Amer) BUN/Creatinine Ratio Glucose POC Glucose 117 H Calcium Magnesium Medications Administered Current Inpatient Medications Acetaminophen (Tylenol) 650 mg PO Q4H PRN PRN Reason: Pain or Fever Stop: 10/27/19 16:41 Acyclovir (Zovirax) 400 mg PO BID [facility] Stop: 10/27/19 20:59 Last Admin: 10/02/19 07:48 Dose: 400 mg Documented by: Albuterol (Duoneb) 3 ml NEB BIDR [facility] Stop: 10/31/19 18:59 Last Admin: 10/02/19 07:14 Dose: 3 ml Documented by: Amlodipine Besylate (Norvasc) 10 mg PO QAM [facility] Stop: 10/29/19 08:59 Last Admin: 10/02/19 07:47 Dose: 10 mg Documented by: Amoxicillin/Clavulanate Potassium (Augmentin 500mg) 1 tab PO BID [facility]; Protocol Stop: 10/04/19 11:59 Last Admin: 10/02/19 07:46 Dose: 1 tab Documented by: Clopidogrel Bisulfate (Plavix) 75 mg PO DAILY [facility] Stop: 10/28/19 08:59 Last Admin: 10/02/19 07:47 Dose: 75 mg Documented by: Dextrose (Dextrose 50%) 25 - 50 ml IV UD PRN; Protocol PRN Reason: Hypoglycemia Protocol Stop: 10/27/19 16:41 Doxazosin Mesylate (Cardura) 8 mg PO HS [facility] Stop: 10/27/19 17:59 Last Admin: 10/01/19 20:39 Dose: 8 mg Documented by: Fish Oil ([place]-3 (Purified Fish Oil)) 1 gm PO BID [facility] Stop: 10/27/19 20:59 Last Admin: 10/02/19 07:48 Dose: 1 gm Documented by: Fluoxetine HCl (Prozac) 40 mg PO DAILY [facility] Stop: 10/28/19 08:59 Last Admin: 10/02/19 07:47 Dose: 40 mg Documented by: Fluticasone/Vilanterol (Breo Ellipta 200/25 Mcg Inh) 1 puffs INH DAILY [facility] Stop: 10/28/19 08:59 Last Admin: 10/02/19 07:49 Dose: 1 puffs Documented by: Furosemide (Lasix) 80 mg PO BID17 [facility] Stop: 10/30/19 08:59 Last Admin: 10/02/19 07:49 Dose: 80 mg Documented by: Glucagon (Glucagen) 1 mg SQ UD PRN; Protocol PRN Reason: Hypoglycemia Protocol Stop: 10/27/19 16:41 Glucose (Dex4 Glucose) 4 - 8 tabs PO UD PRN; Protocol PRN Reason: Hypoglycemia Protocol Stop: 10/27/19 16:41 Glucose (Glucose 40%) 15 - 30 gm PO UD PRN; Protocol PRN Reason: Hypoglycemia Protocol Stop: 10/27/19 16:41 Heparin Sodium (Porcine) (Heparin Sodium (Porcine)) 5,000 units SQ Q8 [facility] Stop: 10/27/19 21:59 Last Admin: 09/27/19 21:13 Dose: Not Given Documented by: Hydralazine HCl (Hydralazine Hcl) 5 mg IV Q4H PRN PRN Reason: SBP> 175 Stop: 10/27/19 19:17 Last Admin: 09/27/19 21:38 Dose: 5 mg Documented by: Hydralazine HCl (Apresoline) 10 mg PO Q8 [facility] Stop: 10/29/19 10:54 Last Admin: 10/02/19 05:33 Dose: 10 mg Documented by: Tobramycin Sulfate 150 mg/ (Syringe) 3.75 mls @ 0.033 mls/min INH Q12R [facility] Stop: 10/27/19 18:59 Last Admin: 10/02/19 07:14 Dose: 0.033 mls/min Documented by: Heparin Sodium/Dextrose (Heparin Sodium/Dextrose) 25,000 units in 500 mls @ 18 mls/hr IV .Q24H [facility]; Protocol Stop: 10/27/19 21:14 Last Titration: 10/02/19 08:03 Dose: 900 units/hr, 18 mls/hr Documented by: Insulin Aspart (Novolog Flexpen) 0 units SC ACHS [facility] Stop: 10/27/19 16:41 Last Admin: 10/02/19 07:50 Dose: 1 units Documented by: Magnesium Chloride (Slow-Mag) 64 mg PO DAILY [facility] Stop: 10/28/19 08:59 Last Admin: 10/02/19 07:47 Dose: 64 mg Documented by: Metoprolol Succinate (Toprol Xl) 100 mg PO DAILY [facility] Stop: 10/28/19 08:59 Last Admin: 10/02/19 07:47 Dose: 100 mg Documented by: Miscellaneous (Carbohydrates For Hypoglycemia) 15 - 30 gm PO UD PRN PRN Reason: Hypoglycemia Protocol Stop: 10/27/19 16:41 Miscellaneous (Order Awaiting Action) 1 ea N/A QS [facility] Stop: 10/28/19 00:00 Last Admin: 10/02/19 07:49 Dose: Not Given Documented by: Montelukast Sodium (Singulair) 10 mg PO QPM [facility] Stop: 10/28/19 20:59 Last Admin: 10/01/19 20:39 Dose: 10 mg Documented by: Mycophenolate Sodium (Myfortic) 180 mg PO BID [facility] Stop: 10/27/19 20:59 Last Admin: 10/02/19 07:49 Dose: 180 mg Documented by: Nitroglycerin (Nitrostat) 0.4 mg SL UD PRN PRN Reason: Chest Pain Stop: 10/27/19 16:41 Ondansetron HCl (Zofran) 4 mg IV Q6H PRN PRN Reason: Nausea Stop: 10/27/19 16:41 Pantoprazole Sodium (Protonix) 40 mg PO BID [facility] Stop: 10/27/19 20:59 Last Admin: 10/02/19 07:48 Dose: 40 mg Documented by: Polyethylene Glycol (Miralax Powder Packet) 17 gm PO DAILY PRN PRN Reason: Constipation Stop: 10/27/19 16:41 Prednisone (Prednisone) 5 mg PO DAILY [facility] Stop: 10/28/19 08:59 Last Admin: 10/02/19 07:48 Dose: 5 mg Documented by: Rosuvastatin Calcium (Crestor) 40 mg PO HS [facility] Stop: 10/27/19 20:59 Last Admin: 10/01/19 20:40 Dose: 40 mg Documented by: Sodium Bicarbonate (Sodium Bicarbonate) 1,300 mg PO TID [facility] Stop: 10/27/19 20:59 Last Admin: 10/02/19 07:48 Dose: 1,300 mg Documented by: Tacrolimus (Prograf) 0.5 mg PO BID [facility] Stop: 10/27/19 20:59 Last Admin: 10/02/19 08:48 Dose: 0.5 mg Documented by: Trimethoprim/Sulfamethoxazole (Septra 400/80mg Tab) 1 tab PO MoTh@0900 [facility] Stop: 10/28/19 08:59 Last Admin: 10/02/19 07:48 Dose: 1 tab Documented by: Warfarin Sodium (Coumadin) 2 mg PO DAILY@1600 [facility] Stop: 10/29/19 15:59 Last Admin: 10/01/19 16:48 Dose: 2 mg Documented by:
[2019-10-02 14:36] LABS: Partial Thromboplastin Ratio 1.9
[2019-10-02 14:43] LABS: Partial Thromboplastin Time 52.7 Seconds (21.0-31.0)
[2019-10-02] MEDS: HEPARIN SODIUM/DEXTROSE 25,000 UNITS/500 ML BAG IV SCH (14:48)
[2019-10-02] MEDS ORDERED: guaiFENesin 600 MG TABCR PO ONE (15:06)
[2019-10-02] MEDS: WARFARIN SOD 2 MG TAB PO SCH (15:53)
[2019-10-02] MEDS: AZITHROMYCIN 250 MG TAB PO SCH (16:52)
[2019-10-02] MEDS: guaiFENesin 600 MG TABCR PO SCH (20:33)
[2019-10-02] MEDS: DOXAZosin MESYLATE 4 MG TAB PO SCH (20:33)
[2019-10-02] MEDS: MONTELUKAST SODIUM 10 MG TABLET PO SCH (20:33)
[2019-10-02] MEDS: ROSUVASTATIN CALCIUM 20 MG TAB PO SCH (20:35)
[2019-10-03] MEDS: [UNRECOGNIZED DRUG - OTHER] SCH ×2 (02:28→07:49)
[2019-10-03] MEDS: HydrALAZINE 10 MG TAB PO SCH ×3 (06:11→21:16)
[2019-10-03] MEDS: ALBUT/IPRATROP 3MG/0.5MG NEB 3 ML VIAL NEB SCH ×2 (06:54→19:12)
[2019-10-03] MEDS: TOBRAMYCIN SULFATE INH SCH ×2 (06:55→19:12)
[2019-10-03] MEDS: FLUOXETINE HCL 20 MG CAP PO SCH (07:40)
[2019-10-03] MEDS: ACYCLOVIR 400 MG TAB PO SCH ×2 (07:40→21:14)
[2019-10-03] MEDS: AMOXICILLIN/CLAVULANATE 500 MG TAB PO SCH ×2 (07:40→21:17)
[2019-10-03] MEDS: FLUTICASONE/VILANTEROL 200/25MCG 14 PUFFS/INHALER INH SCH (07:40)
[2019-10-03] MEDS: OMEGA-3 (PURIFIED FISH OIL) 1 GM CAP PO SCH ×2 (07:41→21:13)
[2019-10-03] MEDS: PANTOprazole 40 MG TAB PO SCH ×2 (07:41→21:15)
[2019-10-03] MEDS: AMLODIPINE BESYLATE 5 MG TAB PO SCH (07:41)
[2019-10-03] MEDS: predniSONE 5 MG TAB PO SCH (07:42)
[2019-10-03] MEDS: SODIUM BICARBONATE 650 MG TAB PO SCH ×3 (07:42→21:17)
[2019-10-03] MEDS: MAGNESIUM CHLORIDE 64MG DELAYED REL TAB PO SCH (07:42)
[2019-10-03] MEDS: CLOPIDOGREL BISULFATE 75 MG TAB PO SCH (07:43)
[2019-10-03] MEDS: TACROLIMUS 0.5 MG CAP PO SCH ×2 (07:43→21:10)
[2019-10-03] MEDS: MYCOPHENOLATE SODIUM 180 MG TAB PO SCH ×2 (07:43→21:15)
[2019-10-03] MEDS: METOPROLOL SUCC 50MG EXT REL TAB PO SCH (07:43)
[2019-10-03] MEDS: FUROSEMIDE 80 MG TAB PO SCH ×2 (07:43→16:17)
[2019-10-03] MEDS: guaiFENesin 600 MG TABCR PO SCH ×2 (07:44→21:15)
[2019-10-03] MEDS: INSULIN ASPART 100 UNITS/ML 3 ML PEN SC SCH ×4 (07:46→21:30)
[2019-10-03 08:12] LABS: INR 1.2 (0.9-1.1); Partial Thromboplastin Ratio 1.9; Prothrombin Time 12.3 Seconds (9.0-12.0)
[2019-10-03 08:13] LABS: Partial Thromboplastin Time 53.2 Seconds (21.0-31.0)
[2019-10-03 08:28] LABS: BUN Creatinine Ratio 10.6 (10-20); Calcium 9.2 mg/dl (8.5-10.1); Creatinine Clr Calc Pharmacy 16.9 ml/min; Est GFR (African American) 15.8; Est GFR (Non-African American) 13.6; Magnesium 1.6 mg/dl (1.8-2.4); Potassium 3.4 mmol/L (3.5-5.1)
--- NOTE | 2019-10-03 08:48 | Hospitalist Progress Note ---
Date of Service October 03, 2019 Assessment & Plan (1) Chest pain: likely secondary to Hypertensive urgency, not ACS - CP resolved on admission - trop. mildly elevated (chronic) in setting of CKD - echo ordered and reviewed w/ cardiology, appreciate their input - pt initially received prn hydralazine and IV lasix - started amlodipine - BP improved but still hypertensive, hydralazine 10 mg every 8 hours initiated - no recurrent complaint of chest pain (2) Hypoxia: (3) CHF (congestive heart failure): Acute hypoxic respiratory failure - multiple etiologies Pulmonary edema in setting of hypertensive urgency Acute on chronic systolic HF Concern for poss. 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 difficile colitis (recurrent) who presented to ED secondary to chest pain and shortness of breath. Initially on 6L of suppl. O2 via EMS, then down to 3L of suppl. O2 in the ED. Chest pain has resolved with nitro per pt. Hypoxic requiring 3L of O2 via NC. 1st troponin elevated at .070, which is baseline for pt. No ST or t wave changes noted on EKG Pt significantly hypertensive in setting of ESRD. Chest CT: 1. Cardiomegaly. Intralobular septal thickening throughout the left lung suggests a component of congestive failure. 2. Groundglass consolidation is seen throughout the left lung. This could represent pulmonary edema and/or an infectious/inflammatory pneumonitis. Clinical correlation will be essential. 3. Small to moderate pleural effusions, left larger than right. 4. Changes of advanced interstitial lung disease are present in the right lung with evidence of previous surgery. Sx likely in setting of acute on chronic CHF with pulmonary edema (pt with hx of HFrEF with a repeat echo 12/29/2018 showing return of normal EF 55%) Gave Lasix 80 mg IV on admission and x 2 the next day Cardiology and nephrology consulted Spoke with Dr. Hansen (Pulmonary) to discuss CT results - Feels likely etiology of Pulmonary edema in setting of HTN urgency vs infectious pneumonitis in setting of immunosuppression. Pt low risk for dat novel COVID due to no known exposure and pt has been at home. Ground glass opacities also seen on previous CT. Recommending starting broad spectrum antibiotics Started Vanco/zosyn initially,recommend 7-10 days of Abx therapy - pt clinically much improved and was switched to PO Augmentin - sputum culture - ordered Clinically patient much improved, currently on room air, also not hypoxic with a mbulation [facility] lung transplant center contacted, discussed with Dr. Lyndon Washington, who is aware about patient's admission Per nephrology, now on 80 mg p.o. Lasix twice daily RUE Brachial vein DVT - prior hx of RUE DVT, and b/l LE DVT - most recently treated for ~ 3 months w/ warfarin - started on IV heparin - given pt is on ASA and plavix and has prior hx of GI bleed, d/c 'ed ASA (discussed w/ cardiology) - started warfarin, discussed this with pharmacy, lung transplant physician at [facility], as well as cardiology and nephrology here at [facility] - previously discharged on 2.5 mg, started pt on 2 mg daily - Monitor for bleeding (4) CKD (chronic kidney disease) stage 5, GFR less than 15 ml/min: Patient with acute on chronic CKD stage V Baseline creatinine 3.5, he does have matured AV fistula BUN/creatinine 40 and 4.08 Consulted nephrology, Dr. Burnett - case discussed on admission gave IV lasix 80mg x 1 on admission and x2 the next day Now on PO Lasix 80 mg twice daily per nephrology, Cr stable at ~4 (5) HTN (hypertension): Hypertensive URGENCY Patient significantly hypertensive in ED Likely in setting of volume overload, end-stage renal disease, and CHF IV Lasix 80 mg and prn hydralazine on admission continue metoprolol and cardura While inpt started on amlodipine 10 mg qAM and hydralazine 10 mg 3 times daily, BP now well controlled (6) Hypomagnesemia: monitor and replete as needed (7) Diabetes mellitus, type II: Last A1C in [facility] 5.5 09/2018 Current A1C 5.5% as well, well controlled insulin sliding scale per protocol (8) Idiopathic pulmonary fibrosis: History of left lung transplant in 2012 On tacrolimus, mycophenolate and prednisone Check tacrolimus and mycophenolate levels Continue Advair, tobramycin [facility] low threshold to consult pulm if no improvement with diuresis (9) Lung transplant status: History of left lung transplant in 2013 On tacrolimus, mycophenolate and prednisone Check tacrolimus and mycophenolate levels Continue Advair, tobramycin neb Transplant Center at [facility] contacted Pt should contact them after d/c to inquire about follow up appointment (10) Paroxysmal atrial fibrillation: hx of pAFib/ Aflutter most recently off OAC due to hx of GIB continue metoprolol - now on IV heparin for RUE DVT, warfarin initiated - INR 1.2 (11) Hyperparathyroidism: continue calcitriol (12) Chronic anemia: H/H stable at 10/30.8 on aranesp weekly (13) HLD (hyperlipidemia): continue lovaza (14) DVT prophylaxis: IV heparin (bridging) + warfarin Disposition: Downgrade to Med/Surg., plan to d/c home once INR therapeutic and pt medically stable Follow up: PCP Dr. Lindo upon discharge Outpt [facility], Dr. Sterling, in 7-14 days Lung transplant team at [facility] Admission and Anticipated Discharge Date Admission Date: September 27, 2019 Subjective Patient is sitting up in bed, in no acute distress, denies any fevers, chills, chest pain, shortness of breath, abdominal pain, nausea or vomiting. No acute events reported overnight. INR 1.2 Review of Systems Review of Systems: All systems reviewed & are unremarkable except as noted in HPI & below Constitutional: no fever and no chills Respiratory: no cough and no dyspnea Cardiovascular: no chest pain, no palpitations and no edema Gastrointestinal: no abdominal pain, no nausea and no vomiting Physical Exam Physical Exam: Constitutional: Chronically ill-appearing elderly male, lying in bed, in NAD, breathing comfortably on room air Head: Normocephalic, Atraumatic Eyes: PERRL, conjunctivae normal, anicteric sclerae ENMT: external ear and nose normal, oropharynx normal Neck: trachea midline, no thyromegaly normal visual inspection Respiratory: normal respiratory effort, CTAB only very mild rhonchi b/l, no crackles, no wheezing, no accessory muscle use Cardiovascular: regular, soft murmur, no edema Vessels: no JVD appreciated or carotid bruit , right radial AV fistula Chest: normal inspection of chest Abdomen: normal bowel sounds, soft, nontender, nondistended Musculoskeletal: no cyanosis or clubbing, extremities motor strength 5/5, moves extremities spontaneously Skin: no rashes, warm and dry normal turgor Neuro/Psych: A+Ox3, euthymic affect, no facial palsy, no dysarthria, moves all extremities Results & Data Results & Data ([facility]) Vital Signs (Past 12 Hours) Vital Signs Temp Pulse Pulse Resp BP Pulse Ox 10/03/19 07:10 36.1 C L 68 16 170/77 H 100 10/03/19 07:03 65 16 96 10/03/19 03:04 36.7 C 63 16 116/61 98 10/02/19 23:59 62 10/02/19 23:28 36.5 C 63 16 121/62 95 Laboratory Results 10/03/19 10/03/19 10/03/19 Range/Units 07:43 07:30 07:30 PT 12.3 H (9.0-12.0) Seconds INR 1.2 H (0.9-1.1) APTT 53.2 H* (21.0-31.0) Seconds PTT Ratio 1.9 Sodium 139 (136-145) mmol/L Potassium 3.4 L (3.5-5.1) mmol/L Chloride 104 (98-107) mmol/L Carbon Dioxide 27 (21-32) mmol/L Anion Gap 8.0 (3-11) BUN 42 H (7-18) mg/dl Creatinine 3.98 H (0.6-1.4) mg/dl Est Cr Clr Drug Dosing 16.9 ml/min Est GFR ( Amer) 15.8 Est GFR (Non-Af Amer) 13.6 BUN/Creatinine Ratio 10.6 (10-20) Glucose 111 H (70-99) mg/dl POC Glucose 121 H (70-99) mg/dl Calcium 9.2 (8.5-10.1) mg/dl Phosphorus 4.0 (2.5-4.9) mg/dl Magnesium 1.6 L (1.8-2.4) mg/dl 10/02/19 10/02/19 10/02/19 Range/Units 20:23 16:11 13:49 PT (9.0-12.0) Seconds INR (0.9-1.1) APTT 52.7 H* (21.0-31.0) Seconds PTT Ratio 1.9 Sodium (136-145) mmol/L Potassium (3.5-5.1) mmol/L Chloride (98-107) mmol/L Carbon Dioxide (21-32) mmol/L Anion Gap (3-11) BUN (7-18) mg/dl Creatinine (0.6-1.4) mg/dl Est Cr Clr Drug Dosing ml/min Est GFR ( Amer) Est GFR (Non-Af Amer) BUN/Creatinine Ratio (10-20) Glucose (70-99) mg/dl POC Glucose 115 H 131 H (70-99) mg/dl Calcium (8.5-10.1) mg/dl Phosphorus (2.5-4.9) mg/dl Magnesium (1.8-2.4) mg/dl 10/02/19 Range/Units 11:23 PT (9.0-12.0) Seconds INR (0.9-1.1) APTT (21.0-31.0) Seconds PTT Ratio Sodium (136-145) mmol/L Potassium (3.5-5.1) mmol/L Chloride (98-107) mmol/L Carbon Dioxide (21-32) mmol/L Anion Gap (3-11) BUN (7-18) mg/dl Creatinine (0.6-1.4) mg/dl Est Cr Clr Drug Dosing ml/min Est GFR ( Amer) Est GFR (Non-Af Amer) BUN/Creatinine Ratio (10-20) Glucose (70-99) mg/dl POC Glucose 148 H (70-99) mg/dl Calcium (8.5-10.1) mg/dl Phosphorus (2.5-4.9) mg/dl Magnesium (1.8-2.4) mg/dl Medications Administered Current Inpatient Medications Acetaminophen (Tylenol) 650 mg PO Q4H PRN PRN Reason: Pain or Fever Stop: 10/27/19 16:41 Acyclovir (Zovirax) 400 mg PO BID [facility] Stop: 10/27/19 20:59 Last Admin: 10/03/19 07:40 Dose: 400 mg Documented by: Albuterol (Duoneb) 3 ml NEB BIDR [facility] Stop: 10/31/19 18:59 Last Admin: 10/03/19 06:54 Dose: 3 ml Documented by: Amlodipine Besylate (Norvasc) 10 mg PO QAM [facility] Stop: 10/29/19 08:59 Last Admin: 10/03/19 07:41 Dose: 10 mg Documented by: Amoxicillin/Clavulanate Potassium (Augmentin 500mg) 1 tab PO BID [facility]; Protocol Stop: 10/04/19 11:59 Last Admin: 10/03/19 07:40 Dose: 1 tab Documented by: Azithromycin (Zithromax) 250 mg PO MoWeFr@0900 [facility] Stop: 11/01/19 15:59 Last Admin: 10/02/19 16:52 Dose: 250 mg Documented by: Clopidogrel Bisulfate (Plavix) 75 mg PO DAILY [facility] Stop: 10/28/19 08:59 Last Admin: 10/03/19 07:43 Dose: 75 mg Documented by: Dextrose (Dextrose 50%) 25 - 50 ml IV UD PRN; Protocol PRN Reason: Hypoglycemia Protocol Stop: 10/27/19 16:41 Doxazosin Mesylate (Cardura) 8 mg PO HS [facility] Stop: 10/27/19 17:59 Last Admin: 10/02/19 20:33 Dose: 8 mg Documented by: Fish Oil ([place]-3 (Purified Fish Oil)) 1 gm PO BID [facility] Stop: 10/27/19 20:59 Last Admin: 10/03/19 07:41 Dose: 1 gm Documented by: Fluoxetine HCl (Prozac) 40 mg PO DAILY [facility] Stop: 10/28/19 08:59 Last Admin: 10/03/19 07:40 Dose: 40 mg Documented by: Fluticasone/Vilanterol (Breo Ellipta 200/25 Mcg Inh) 1 puffs INH DAILY [facility] Stop: 10/28/19 08:59 Last Admin: 10/03/19 07:40 Dose: 1 puffs Documented by: Furosemide (Lasix) 80 mg PO BID17 [facility] Stop: 10/30/19 08:59 Last Admin: 10/03/19 07:43 Dose: 80 mg Documented by: Glucagon (Glucagen) 1 mg SQ UD PRN; Protocol PRN Reason: Hypoglycemia Protocol Stop: 10/27/19 16:41 Glucose (Dex4 Glucose) 4 - 8 tabs PO UD PRN; Protocol PRN Reason: Hypoglycemia Protocol Stop: 10/27/19 16:41 Glucose (Glucose 40%) 15 - 30 gm PO UD PRN; Protocol PRN Reason: Hypoglycemia Protocol Stop: 10/27/19 16:41 Guaifenesin (Mucinex) 600 mg PO Q12 [facility] Stop: 11/01/19 20:59 Last Admin: 10/03/19 07:44 Dose: 600 mg Documented by: Heparin Sodium (Porcine) (Heparin Sodium (Porcine)) 5,000 units SQ Q8 [facility] Stop: 10/27/19 21:59 Last Admin: 09/27/19 21:13 Dose: Not Given Documented by: Hydralazine HCl (Hydralazine Hcl) 5 mg IV Q4H PRN PRN Reason: SBP> 175 Stop: 10/27/19 19:17 Last Admin: 09/27/19 21:38 Dose: 5 mg Documented by: Hydralazine HCl (Apresoline) 10 mg PO Q8 [facility] Stop: 10/29/19 10:54 Last Admin: 10/03/19 06:11 Dose: 10 mg Documented by: Tobramycin Sulfate 150 mg/ (Syringe) 3.75 mls @ 0.033 mls/min INH Q12R [facility] Stop: 10/27/19 18:59 Last Admin: 10/03/19 06:55 Dose: 0.033 mls/min Documented by: Heparin Sodium/Dextrose (Heparin Sodium/Dextrose) 25,000 units in 500 mls @ 18 mls/hr IV .Q24H [facility]; Protocol Stop: 10/27/19 21:14 Last Titration: 10/03/19 07:10 Dose: 900 units/hr, 18 mls/hr Documented by: Insulin Aspart (Novolog Flexpen) 0 units SC ACHS [facility] Stop: 10/27/19 16:41 Last Admin: 10/03/19 07:46 Dose: 4 units Documented by: Magnesium Chloride (Slow-Mag) 64 mg PO DAILY [facility] Stop: 10/28/19 08:59 Last Admin: 10/03/19 07:42 Dose: 64 mg Documented by: Metoprolol Succinate (Toprol Xl) 100 mg PO DAILY [facility] Stop: 10/28/19 08:59 Last Admin: 10/03/19 07:43 Dose: 100 mg Documented by: Miscellaneous (Carbohydrates For Hypoglycemia) 15 - 30 gm PO UD PRN PRN Reason: Hypoglycemia Protocol Stop: 10/27/19 16:41 Miscellaneous (Order Awaiting Action) 1 ea N/A QS [facility] Stop: 10/28/19 00:00 Last Admin: 10/03/19 07:49 Dose: Not Given Documented by: Montelukast Sodium (Singulair) 10 mg PO QPM [facility] Stop: 10/28/19 20:59 Last Admin: 10/02/19 20:33 Dose: 10 mg Documented by: Mycophenolate Sodium (Myfortic) 180 mg PO BID [facility] Stop: 10/27/19 20:59 Last Admin: 10/03/19 07:43 Dose: 180 mg Documented by: Nitroglycerin (Nitrostat) 0.4 mg SL UD PRN PRN Reason: Chest Pain Stop: 10/27/19 16:41 Ondansetron HCl (Zofran) 4 mg IV Q6H PRN PRN Reason: Nausea Stop: 10/27/19 16:41 Pantoprazole Sodium (Protonix) 40 mg PO BID [facility] Stop: 10/27/19 20:59 Last Admin: 10/03/19 07:41 Dose: 40 mg Documented by: Polyethylene Glycol (Miralax Powder Packet) 17 gm PO DAILY PRN PRN Reason: Constipation Stop: 10/27/19 16:41 Prednisone (Prednisone) 5 mg PO DAILY [facility] Stop: 10/28/19 08:59 Last Admin: 10/03/19 07:42 Dose: 5 mg Documented by: Rosuvastatin Calcium (Crestor) 40 mg PO HS [facility] Stop: 10/27/19 20:59 Last Admin: 10/02/19 20:35 Dose: 40 mg Documented by: Sodium Bicarbonate (Sodium Bicarbonate) 1,300 mg PO TID [facility] Stop: 10/27/19 20:59 Last Admin: 10/03/19 07:42 Dose: 1,300 mg Documented by: Tacrolimus (Prograf) 0.5 mg PO BID [facility] Stop: 10/27/19 20:59 Last Admin: 10/03/19 07:43 Dose: 0.5 mg Documented by: Trimethoprim/Sulfamethoxazole (Septra 400/80mg Tab) 1 tab PO MoTh@0900 [facility] Stop: 10/28/19 08:59 Last Admin: 10/02/19 07:48 Dose: 1 tab Documented by: Warfarin Sodium (Coumadin) 2 mg PO DAILY@1600 [facility] Stop: 10/29/19 15:59 Last Admin: 10/02/19 15:53 Dose: 2 mg Documented by: (1) CHF (congestive heart failure) Heart failure chronicity: unspecified Heart failure type: unspecified Qualified Code(s): I50.9 - Heart failure, unspecified (2) Chest pain Chest pain type: precordial pain Qualified Code(s): R07.2 - Precordial pain (3) HTN (hypertension) Hypertension type: unspecified Qualified Code(s): I10 - Essential (primary) hypertension
[2019-10-03] MEDS ORDERED: POTASSIUM CHLORIDE 20 MEQ TABCR PO STA (08:49)
--- NOTE | 2019-10-03 09:15 | Nephrology Progress Note ---
Date of Service October 03, 2019 Assessment & Plan (1) CKD (chronic kidney disease): -- Baseline creatinine has risen to 4.0 mg/dL and stabilized. Patient remains euvolemic. Electrolyte balance is acceptable. He has no uremic symptoms. No acute indication for HD at this time -- Kidney function has been stable for > 72 hours. Patient is awaiting INR to become therapeutic. No further Nephrology intervention needed at this time. Will sign off. Please call if further assistance is needed -- Please have patient follow up w/ Dr. Sterling within 7 - 14 days of discharge from the hospital (2) HTN (hypertension): -- Admitted w/ hypertensive urgency -- Amlodipine and Hydralazine added to medical regimen. BP is now acceptable -- If BP again becomes difficult to control, would favor converting Hydralazine to SR NTG due to h/o ASCVD and current use of multiple vasodilators (3) Deep vein thrombosis (DVT) of brachial vein of right upper extremity: -- US reveals near occlusion of R brachial vein. AVF remains patent -- Warfarin as per Cardiology and primary service. 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 Immunosuppressive regimen consists of Prograf, Mycophenolate and Prednisone. Pulmonary status is stable at this time Subjective Mr. Bill was seen & examined in the PCU this morning. He denied HARRIS, angina or dyspnea. The batteries for his hearing aides have failed. He is very [place]. He voiced no new medical concerns. SBP 116 - 170 mmHg last 24 hours with current regimen. Patient remains on heparin gtt. INR 1.2 this am. Review of Systems Constitutional: no fever Eyes: no problem reported Ear, Nose, Mouth, Throat: no problem reported Respiratory: no cough and no dyspnea Cardiovascular: no chest pain, no palpitations and no edema Gastrointestinal: no abdominal pain, no nausea, no vomiting and no diarrhea/loose stools Genitourinary: no dysuria, no urinary hesitancy and no hematuria Musculoskeletal: no back pain Integumentary: no rash Physical Exam Constitutional: + frail appearing; not in distress Eyes: PERRL, conjunctivae normal, anicteric sclerae ENMT: external ear and nose normal, oropharynx normal Neck: trachea midline, no thyromegaly Respiratory: normal respiratory effort, lungs clear to auscultation normal respiratory effort Auscultation: + rales Cardiovascular: RRR, no murmur, no edema Extremities: + AV fistula (+ bruit) Gastrointestinal (Abdomen): normal bowel sounds, soft, nontender, no hepatosplenomegaly Musculoskeletal: Extremities: no cyanosis Skin: no rashes, warm and dry Neurologic: awake Results & Data Vital Signs (Past 12 Hours) Vital Signs Temp Pulse Pulse Resp BP Pulse Ox 10/03/19 07:20 68 10/03/19 07:10 36.1 C L 68 16 170/77 H 100 10/03/19 07:03 65 16 96 10/03/19 03:04 36.7 C 63 16 116/61 98 10/02/19 23:59 62 10/02/19 23:28 36.5 C 63 16 121/62 95 Laboratory Results Laboratory Tests 10/02/19 10/03/19 05:24 07:30 INR 1.2 H Sodium 140 Potassium 3.4 L Chloride 105 Carbon Dioxide 26 BUN 37 H Creatinine 4.03 H PG Care Time/CCT Total # of Minutes Spent Total Time Spent with Patient: Total time spent is greater than 50% in coordination of care (as documented) at patient's floor/unit and/or counseling patient: Coding Level of Care Code 98446 Subseq Hosp Care Lvl 2 Diagnoses CKD (chronic kidney disease) N18.9 Chronic kidney disease stage: unspecified stage HTN (hypertension) I10 Hypertension type: unspecified Deep vein thrombosis (DVT) of brachial vein of right upper extremity I82.621 Chronicity: acute Lung transplant status Z94.2 (1) CKD (chronic kidney disease) Chronic kidney disease stage: unspecified stage Qualified Code(s): N18.9 - Chronic kidney disease, unspecified (2) HTN (hypertension) Hypertension type: unspecified Qualified Code(s): I10 - Essential (primary) hypertension (3) Deep vein thrombosis (DVT) of brachial vein of right upper extremity Chronicity: acute Qualified Code(s): I82.621 - Acute embolism and thrombosis of deep veins of right upper extremity
[2019-10-03] MEDS ORDERED: ACETAMINOPHEN 500 MG TAB PO PRN (10:31)
[2019-10-03] MEDS: WARFARIN SOD 2 MG TAB PO SCH (16:17)
[2019-10-03] MEDS: HEPARIN SODIUM/DEXTROSE 25,000 UNITS/500 ML BAG IV SCH (17:50)
[2019-10-03] MEDS: DOXAZosin MESYLATE 4 MG TAB PO SCH (21:10)
[2019-10-03] MEDS: ROSUVASTATIN CALCIUM 20 MG TAB PO SCH (21:10)
[2019-10-03] MEDS: MONTELUKAST SODIUM 10 MG TABLET PO SCH (21:14)
[2019-10-03] MEDS: VORICONAZOLE 200 MG TABLET PO SCH (21:20)
[2019-10-04 06:29] LABS: INR 1.2 (0.9-1.1); Partial Thromboplastin Ratio 2.2; Partial Thromboplastin Time 60.9 Seconds (21.0-31.0); Prothrombin Time 12.7 Seconds (9.0-12.0)
[2019-10-04 06:34] LABS: BUN Creatinine Ratio 11.2 (10-20); Calcium 8.9 mg/dl (8.5-10.1); Creatinine Clr Calc Pharmacy 15.7 ml/min; Est GFR (African American) 14.4; Est GFR (Non-African American) 12.4; Magnesium 1.7 mg/dl (1.8-2.4); Potassium 3.6 mmol/L (3.5-5.1)
[2019-10-04] MEDS: ALBUT/IPRATROP 3MG/0.5MG NEB 3 ML VIAL NEB SCH ×2 (07:36→18:52)
[2019-10-04] MEDS: TOBRAMYCIN SULFATE INH SCH ×2 (07:37→18:58)
[2019-10-04] MEDS: HydrALAZINE 10 MG TAB PO SCH ×3 (07:58→21:10)
[2019-10-04] MEDS: FUROSEMIDE 80 MG TAB PO SCH ×2 (07:59→17:00)
[2019-10-04] MEDS: guaiFENesin 600 MG TABCR PO SCH ×2 (08:00→20:39)
[2019-10-04] MEDS: MYCOPHENOLATE SODIUM 180 MG TAB PO SCH ×2 (08:00→20:40)
[2019-10-04] MEDS: predniSONE 5 MG TAB PO SCH (08:01)
[2019-10-04] MEDS: FLUTICASONE/VILANTEROL 200/25MCG 14 PUFFS/INHALER INH SCH (08:01)
[2019-10-04] MEDS: INSULIN ASPART 100 UNITS/ML 3 ML PEN SC SCH ×4 (08:51→20:40)
[2019-10-04] MEDS: CLOPIDOGREL BISULFATE 75 MG TAB PO SCH (08:56)
[2019-10-04] MEDS: OMEGA-3 (PURIFIED FISH OIL) 1 GM CAP PO SCH ×2 (08:57→20:41)
[2019-10-04] MEDS: TACROLIMUS 0.5 MG CAP PO SCH ×2 (08:57→20:41)
[2019-10-04] MEDS: AMLODIPINE BESYLATE 5 MG TAB PO SCH (08:57)
[2019-10-04] MEDS: AMOXICILLIN/CLAVULANATE 500 MG TAB PO SCH (08:59)
[2019-10-04] MEDS: FLUOXETINE HCL 20 MG CAP PO SCH (09:00)
[2019-10-04] MEDS: PANTOprazole 40 MG TAB PO SCH ×2 (09:00→20:42)
[2019-10-04] MEDS: MAGNESIUM CHLORIDE 64MG DELAYED REL TAB PO SCH (09:01)
[2019-10-04] MEDS: SODIUM BICARBONATE 650 MG TAB PO SCH ×3 (09:01→20:42)
[2019-10-04] MEDS: METOPROLOL SUCC 50MG EXT REL TAB PO SCH (09:02)
[2019-10-04] MEDS: ACYCLOVIR 400 MG TAB PO SCH ×2 (09:03→20:44)
[2019-10-04] MEDS: AZITHROMYCIN 250 MG TAB PO SCH (09:03)
[2019-10-04] MEDS: VORICONAZOLE 200 MG TABLET PO SCH ×2 (09:28→20:45)
--- NOTE | 2019-10-04 14:24 | Hospitalist Progress Note ---
Date of Service October 04, 2019 Assessment & Plan (1) Chest pain: likely secondary to Hypertensive urgency, not ACS Chest pain resolved on admission Troponin was mildly elevated (chronic) in setting of CKD Chest pain has resolved with nitro per pt. Hypoxic requiring 3L of O2 via NC. 1st troponin elevated at 0.070, which is baseline for pt. No ST or t wave changes noted on EKG Echo ordered and reviewed w/ cardiology Blood pressure currently controlled No recurrent complaint of chest pain (2) Hypoxia: (3) CHF (congestive heart failure): Acute hypoxic respiratory failure - multiple etiologies Pulmonary edema in setting of hypertensive urgency Acute on chronic systolic HF Concern for poss. PE (confirmed RUE brachial vein DVT) Infectious pneumonitis in setting of immunosuppression, groundglass opacity noted on chest CT Patient has a complex medical history including status post left lung transplant in 2012 on chronic immunosuppressive therapy, CAD, history of ischemic cardiomyopathy with improved EF to 55, ESRD with mature right AV fistula currently not on hemodialysis, anemia of chronic disease, PAF, history of DVT, history of CVA, HTN, HLD, hyperparathyroidism, history of C. difficile colitis (recurrent) who presented to ED secondary to chest pain and shortness of breath. Initially on 6L of suppl. O2 via EMS, then down to 3L of suppl. O2 in the ED. Chest CT reported Cardiomegaly, Intralobular septal thickening throughout the left lung suggests a component of congestive failure; Groundglass consolidation is seen throughout the left lung. This could represent pulmonary edema and/or an infectious/inflammatory pneumonitis. Clinical correlation will be essential. 3. Small to moderate pleural effusions, left larger than right. 4. Changes of advanced interstitial lung disease are present in the right lung with evidence of previous surgery. Got some iv Lasix Admitting providers spoke with Dr. Hansen (Pulmonary) to discuss CT results - Feels likely etiology of Pulmonary edema in setting of HTN urgency vs infectious pneumonitis in setting of immunosuppression. Pt low risk for dat novel COVID due to no known exposure and pt has been at home. Ground glass opacities also seen on previous CT. Recommended starting broad spectrum antibiotics Started Vanco/zosyn initially,recommend 7-10 days of Abx therapy Patient clinically improved and antibiotics switched to PO Augmentin. Completed today Per Dr Stoner's note, [facility] lung transplant center contacted, discussed with Dr. Lyndon Washington, who is aware about patient's admission Per nephrology, now on 80 mg p.o. Lasix twice daily Monitor electrolytes. (4) CKD (chronic kidney disease) stage 5, GFR less than 15 ml/min: Patient with acute on chronic CKD stage V Baseline creatinine 3.5, he does have matured AV fistula Cr is 4.3 today Consulted nephrology, Dr. Lex nieves discussed on admission Currently on po lasix 80 bid Monitor electrolyte Will follow-up with public relations account supervisor outpatient (5) HTN (hypertension): Hypertensive urgency Patient significantly hypertensive in ED Likely in setting of volume overload, end-stage renal disease, and CHF Got IV Lasix 80 mg and prn hydralazine on admission continue metoprolol and cardura BP is currently controlled. Continue current antihypertensive regimen (6) Hypomagnesemia: Monitor and replete as needed (7) Diabetes mellitus, type II: Last A1C in [facility] [employer] 5.5 09/2018 Current A1C 5.5% as well, well controlled insulin sliding scale per protocol (8) Idiopathic pulmonary fibrosis: (9) Lung transplant status: History of left lung transplant in 2012 On tacrolimus, mycophenolate and prednisone Check tacrolimus and mycophenolate levels Continue Advair, tobramycin neb Continue chronic antibiotics Transplant Center at [facility] contacted per Dr Stoner Pt should contact them after d/c to inquire about follow up appointment (10) Paroxysmal atrial fibrillation: Hx of pAFib/ Aflutter Most recently off OAC due to hx of GIB Continue metoprolol Currently rate controlled On heparin to coumadin bridge INR 1.2 (11) Hyperparathyroidism: Continue calcitriol (12) Chronic anemia: On aranesp weekly (13) HLD (hyperlipidemia): Continue lovaza (14) Deep vein thrombosis, upper right extremity: RUE Brachial vein DVT Prior hx of RUE DVT, and b/l LE DVT Most recently treated for ~ 3 months w/ warfarin Was started on IV heparin to coumadin bridge Patient is on ASA and plavix and has prior hx of GI bleed, ASA was discontinued (Dr. Stoner discussed w/ cardiology) Dr Stoner discussed with lung transplant physician at [facility], as well as cardiology and nephrology here at [facility] per her note INR is subtherapeutic. Discussed with pharmacist. Will give from 5 mg today and continue to monitor INR Monitor for bleeding Follow up: PCP Dr. Lindo upon discharge Outpt Gospel Worker, Dr. Sterling, in 7-14 days Lung transplant team at [facility] Admission and Anticipated Discharge Date Admission Date: September 27, 2019 Subjective Patient seen and examined. Denies any complaints today. Review of Systems Constitutional: no problem reported Eyes: no problem reported Respiratory: no problem reported Cardiovascular: no problem reported Gastrointestinal: no problem reported Physical Exam Constitutional: + well hydrated; no acute distress Eyes: PERRL, conjunctivae normal, anicteric sclerae ENMT: external ear and nose normal, oropharynx normal Ears: + hearing impairment Respiratory: normal respiratory effort, lungs clear to auscultation Cardiovascular: Rate/Rhythm: regular rate and regular rhythm Extremities: + pedal edema Gastrointestinal (Abdomen): normal bowel sounds, soft, nontender, no hepatosplenomegaly Musculoskeletal: no cyanosis or clubbing, extremities motor strength 5/5 Neurologic: PERRL, EOMI, accommodation nl, no face palsy, no dysarthria Psychiatric: A+Ox3, euthymic affect Results & Data Results & Data ([facility]) Vital Signs (Past 12 Hours) Vital Signs Temp Pulse Pulse Resp BP Pulse Ox 10/04/19 13:02 64 127/66 10/04/19 08:58 71 123/61 10/04/19 07:41 55 L 18 99 10/04/19 07:36 36.6 C 55 L 18 152/62 H 99 Laboratory Results Laboratory Results - last 24 hr 10/03/19 10/03/19 10/04/19 17:17 20:41 05:28 PT 12.7 H INR 1.2 H APTT 60.9 H* PTT Ratio 2.2 Sodium Potassium Chloride Carbon Dioxide Anion Gap BUN Creatinine Est Cr Clr Drug Dosing Est GFR ( Amer) Est GFR (Non-Af Amer) BUN/Creatinine Ratio Glucose POC Glucose 162 H 89 Calcium Magnesium 10/04/19 10/04/19 10/04/19 05:28 08:17 12:36 PT INR APTT PTT Ratio Sodium 134 L Potassium 3.6 Chloride 107 Carbon Dioxide 27 Anion Gap 0 L BUN 48 H Creatinine 4.30 H D Est Cr Clr Drug Dosing 15.7 Est GFR ( Amer) 14.4 Est GFR (Non-Af Amer) 12.4 BUN/Creatinine Ratio 11.2 Glucose 97 POC Glucose 112 H 157 H Calcium 8.9 Magnesium 1.7 L (1) CHF (congestive heart failure) Heart failure chronicity: unspecified Heart failure type: unspecified Qualified Code(s): I50.9 - Heart failure, unspecified (2) Chest pain Chest pain type: precordial pain Qualified Code(s): R07.2 - Precordial pain (3) HTN (hypertension) Hypertension type: unspecified Qualified Code(s): I10 - Essential (primary) hypertension
[2019-10-04] MEDS ORDERED: MAGNESIUM OXIDE 400 MG TAB PO ONE (15:00)
[2019-10-04] MEDS ORDERED: WARFARIN SOD 5 MG TAB PO SCH (16:00)
[2019-10-04] MEDS ORDERED: WARFARIN SOD 2.5 MG TAB PO SCH (16:00)
[2019-10-04] MEDS: HEPARIN SODIUM/DEXTROSE 25,000 UNITS/500 ML BAG IV SCH (19:15)
[2019-10-04] MEDS: ROSUVASTATIN CALCIUM 20 MG TAB PO SCH (20:39)
[2019-10-04] MEDS: DOXAZosin MESYLATE 4 MG TAB PO SCH (20:39)
[2019-10-04] MEDS: MONTELUKAST SODIUM 10 MG TABLET PO SCH (20:42)
[2019-10-05] MEDS: HydrALAZINE 10 MG TAB PO SCH ×3 (06:07→21:15)
[2019-10-05 06:54] LABS: Hematocrit (blood only) 29.6 % (42-52); Hemoglobin 9.6 g/dL (14.0-18.0); Mean Corpuscular Hemoglobin 35.8 pg (25-34); Mean Corpuscular Hgb Conc 32.4 g/dL (32-36); Mean Corpuscular Volume 110.4 fL (80-100); Mean Platelet Volume 11.1 fL (7.4-10.4); Platelet Count 228 K/uL (130-400); RDW Coefficient of Variation 14.5 % (11.5-14.5); RDW Standard Deviation 58.5 fL (36.4-46.3); Red Blood Count 2.68 M/uL (4.7-6.1); White Blood Count 5.49 K/uL (4.8-10.8)
[2019-10-05] MEDS: TOBRAMYCIN SULFATE INH SCH ×2 (07:06→18:55)
[2019-10-05] MEDS: ALBUT/IPRATROP 3MG/0.5MG NEB 3 ML VIAL NEB SCH ×2 (07:07→18:47)
[2019-10-05 07:08] LABS: INR 1.4 (0.9-1.1); Prothrombin Time 14.7 Seconds (9.0-12.0)
[2019-10-05 07:27] LABS: BUN Creatinine Ratio 12.5 (10-20); Creatinine Clr Calc Pharmacy 15.7 ml/min; Est GFR (African American) 14.4; Est GFR (Non-African American) 12.5; Magnesium 1.8 mg/dl (1.8-2.4); Potassium 3.4 mmol/L (3.5-5.1)
[2019-10-05 08:04] LABS: Partial Thromboplastin Ratio 2.8
[2019-10-05 08:42] LABS: Partial Thromboplastin Time 77.5 Seconds (21.0-31.0)
[2019-10-05] MEDS: INSULIN ASPART 100 UNITS/ML 3 ML PEN SC SCH ×4 (08:49→21:43)
[2019-10-05] MEDS: FLUTICASONE/VILANTEROL 200/25MCG 14 PUFFS/INHALER INH SCH (08:55)
[2019-10-05] MEDS: predniSONE 5 MG TAB PO SCH (08:58)
[2019-10-05] MEDS: MAGNESIUM CHLORIDE 64MG DELAYED REL TAB PO SCH (09:01)
[2019-10-05] MEDS: FLUOXETINE HCL 20 MG CAP PO SCH (09:02)
[2019-10-05] MEDS: VORICONAZOLE 200 MG TABLET PO SCH ×2 (09:02→21:14)
[2019-10-05] MEDS: CLOPIDOGREL BISULFATE 75 MG TAB PO SCH (09:02)
[2019-10-05] MEDS: guaiFENesin 600 MG TABCR PO SCH ×2 (09:03→21:14)
[2019-10-05] MEDS: FUROSEMIDE 80 MG TAB PO SCH ×2 (09:03→16:47)
[2019-10-05] MEDS: OMEGA-3 (PURIFIED FISH OIL) 1 GM CAP PO SCH ×2 (09:04→21:14)
[2019-10-05] MEDS: AMLODIPINE BESYLATE 5 MG TAB PO SCH (09:04)
[2019-10-05] MEDS: MYCOPHENOLATE SODIUM 180 MG TAB PO SCH ×2 (09:04→21:14)
[2019-10-05] MEDS: TACROLIMUS 0.5 MG CAP PO SCH ×2 (09:05→21:15)
[2019-10-05] MEDS: PANTOprazole 40 MG TAB PO SCH ×2 (09:05→21:14)
[2019-10-05] MEDS: ACYCLOVIR 400 MG TAB PO SCH ×2 (09:06→21:14)
[2019-10-05] MEDS: SODIUM BICARBONATE 650 MG TAB PO SCH ×3 (09:06→21:14)
[2019-10-05] MEDS: METOPROLOL SUCC 50MG EXT REL TAB PO SCH (09:06)
[2019-10-05] MEDS: SULFA/TRIMETH 400/80MG TAB PO SCH (09:06)
--- NOTE | 2019-10-05 13:28 | Hospitalist Progress Note ---
Date of Service October 05, 2019 Assessment & Plan (1) Chest pain: likely secondary to Hypertensive urgency, not ACS Chest pain resolved on admission Troponin was mildly elevated (chronic) in setting of CKD Chest pain has resolved with nitro per pt. Hypoxic requiring 3L of O2 via NC. 1st troponin elevated at 0.070, which is baseline for pt. No ST or t wave changes noted on EKG Echo ordered and reviewed w/ cardiology Blood pressure currently controlled No recurrent complaint of chest pain (2) Hypoxia: (3) CHF (congestive heart failure): Acute hypoxic respiratory failure - multiple etiologies Pulmonary edema in setting of hypertensive urgency Acute on chronic systolic HF Concern for poss. PE (confirmed RUE brachial vein DVT) Infectious pneumonitis in setting of immunosuppression, groundglass opacity noted on chest CT Patient has a complex medical history including status post left lung transplant in 2012 on chronic immunosuppressive therapy, CAD, history of ischemic cardiomyopathy with improved EF to 55, ESRD with mature right AV fistula currently not on hemodialysis, anemia of chronic disease, PAF, history of DVT, history of CVA, HTN, HLD, hyperparathyroidism, history of C. difficile colitis (recurrent) who presented to ED secondary to chest pain and shortness of breath. Initially on 6L of suppl. O2 via EMS, then down to 3L of suppl. O2 in the ED. Chest CT reported Cardiomegaly, Intralobular septal thickening throughout the left lung suggests a component of congestive failure; Groundglass consolidation is seen throughout the left lung. This could represent pulmonary edema and/or an infectious/inflammatory pneumonitis. Clinical correlation will be essential. 3. Small to moderate pleural effusions, left larger than right. 4. Changes of advanced interstitial lung disease are present in the right lung with evidence of previous surgery. Got some iv Lasix Admitting providers spoke with Dr. Hansen (Pulmonary) to discuss CT results - Feels likely etiology of Pulmonary edema in setting of HTN urgency vs infectious pneumonitis in setting of immunosuppression. Pt low risk for dat novel COVID due to no known exposure and pt has been at home. Ground glass opacities also seen on previous CT. Recommended starting broad spectrum antibiotics Started Vanco/zosyn initially,recommend 7-10 days of Abx therapy Patient clinically improved and antibiotics switched to PO Augmentin. Completed today Per Dr Stoner's note, [facility] lung transplant center contacted, discussed with Dr. Lyndon Washington, who is aware about patient's admission Per nephrology, now on 80 mg p.o. Lasix twice daily Monitor electrolytes. (4) CKD (chronic kidney disease) stage 5, GFR less than 15 ml/min: Patient with acute on chronic CKD stage V Baseline creatinine 3.5, he does have matured AV fistula Cr is 4.28 today Consulted nephrology, Dr. Lex nieves discussed on admission Currently on po lasix 80 bid Monitor electrolyte. K is 3.4 today. Replete Will follow-up with licensed bondsman outpatient (5) HTN (hypertension): Hypertensive urgency Patient significantly hypertensive in ED Likely in setting of volume overload, end-stage renal disease, and CHF Got IV Lasix 80 mg and prn hydralazine on admission continue metoprolol and cardura BP is currently controlled. Continue current antihypertensive regimen (6) Hypomagnesemia: Monitor and replete as needed (7) Diabetes mellitus, type II: Last A1C in [employer] 5.5 09/2018 Current A1C 5.5% as well, well controlled insulin sliding scale per protocol (8) Idiopathic pulmonary fibrosis: (9) Lung transplant status: History of left lung transplant in 2012 On tacrolimus, mycophenolate and prednisone Check tacrolimus and mycophenolate levels Continue Advair, tobramycin neb Continue chronic antibiotics Transplant Center at [facility] contacted per Dr Stoner Pt should contact them after d/c to inquire about follow up appointment (10) Paroxysmal atrial fibrillation: Hx of pAFib/ Aflutter Most recently off OAC due to hx of GIB Continue metoprolol Currently rate controlled On heparin to coumadin bridge INR 1.4 Continue increased warfarin dose for now (11) Hyperparathyroidism: Continue calcitriol (12) Chronic anemia: On aranesp weekly (13) HLD (hyperlipidemia): Continue lovaza (14) Deep vein thrombosis, upper right extremity: RUE Brachial vein DVT Prior hx of RUE DVT, and b/l LE DVT Most recently treated for ~ 3 months w/ warfarin Was started on IV heparin to coumadin bridge Patient is on ASA and plavix and has prior hx of GI bleed, ASA was discontinued (Dr. Stoner discussed w/ cardiology) Dr Stoner discussed with lung transplant physician at [facility], as well as cardiology and nephrology here at [facility] per her note INR is still subtherapeutic. Discussed with pharmacist. Continue warfarin 5 mg today and continue to monitor INR Monitor for bleeding Follow up: PCP Dr. Lindo upon discharge Outpt Scooping Machine Tender, Dr. Sterling, in 7-14 days Lung transplant team at [facility] Admission and Anticipated Discharge Date Admission Date: September 27, 2019 Subjective Patient seen and examined Has no complaints today Physical Exam Constitutional: + well hydrated; no acute distress Eyes: PERRL, conjunctivae normal, anicteric sclerae ENMT: external ear and nose normal, oropharynx normal Ears: + hearing impairment Respiratory: normal respiratory effort, lungs clear to auscultation Cardiovascular: Rate/Rhythm: regular rate and regular rhythm Extremities: + pedal edema Gastrointestinal (Abdomen): normal bowel sounds, soft, nontender, no hepatosplenomegaly Musculoskeletal: no cyanosis or clubbing, extremities motor strength 5/5 Neurologic: PERRL, EOMI, accommodation nl, no face palsy, no dysarthria Psychiatric: A+Ox3, euthymic affect Results & Data Results & Data ([facility]) Vital Signs (Past 12 Hours) Vital Signs Temp Pulse Pulse Resp BP Pulse Ox 10/05/19 09:00 67 135/65 10/05/19 07:40 36.4 C L 60 18 139/69 98 10/05/19 07:07 87 18 99 10/05/19 06:05 56 L 130/69 Laboratory Results Laboratory Results - last 24 hr 10/04/19 10/04/19 10/05/19 17:06 20:36 06:29 WBC 5.49 RBC 2.68 L Hgb 9.6 L Hct 29.6 L MCV 110.4 H MCH 35.8 H MCHC 32.4 RDW Std Deviation 58.5 H RDW Coeff of Ros 14.5 Plt Count 228 MPV 11.1 H PT INR APTT PTT Ratio Sodium Potassium Chloride Carbon Dioxide Anion Gap BUN Creatinine Est Cr Clr Drug Dosing Est GFR ( Amer) Est GFR (Non-Af Amer) BUN/Creatinine Ratio Glucose POC Glucose 152 H 170 H Calcium Magnesium 10/05/19 10/05/19 10/05/19 06:29 06:29 06:29 WBC RBC Hgb Hct MCV MCH MCHC RDW Std Deviation RDW Coeff of Ros Plt Count MPV PT 14.7 H INR 1.4 H APTT 77.5 H* PTT Ratio 2.8 Sodium 136 Potassium 3.4 L Chloride 106 Carbon Dioxide 25 Anion Gap 5.0 BUN 53 H Creatinine 4.28 H Est Cr Clr Drug Dosing 15.7 Est GFR ( Amer) 14.4 Est GFR (Non-Af Amer) 12.5 BUN/Creatinine Ratio 12.5 Glucose 94 POC Glucose Calcium 9.0 Magnesium 1.8 10/05/19 10/05/19 08:24 12:26 WBC RBC Hgb Hct MCV MCH MCHC RDW Std Deviation RDW Coeff of Ros Plt Count MPV PT INR APTT PTT Ratio Sodium Potassium Chloride Carbon Dioxide Anion Gap BUN Creatinine Est Cr Clr Drug Dosing Est GFR ( Amer) Est GFR (Non-Af Amer) BUN/Creatinine Ratio Glucose POC Glucose 112 H 156 H Calcium Magnesium (1) Chest pain Chest pain type: precordial pain Qualified Code(s): R07.2 - Precordial pain (2) CHF (congestive heart failure) Heart failure chronicity: unspecified Heart failure type: unspecified Qualified Code(s): I50.9 - Heart failure, unspecified (3) HTN (hypertension) Hypertension type: unspecified Qualified Code(s): I10 - Essential (primary) hypertension
[2019-10-05] MEDS ORDERED: POTASSIUM CHLORIDE 20 MEQ TABCR PO STA (13:52)
[2019-10-05 15:21] LABS: Partial Thromboplastin Ratio 2.4
[2019-10-05 15:22] LABS: Partial Thromboplastin Time 66.7 Seconds (21.0-31.0)
[2019-10-05] MEDS ORDERED: WARFARIN SOD 5 MG TAB PO SCH (16:00)
[2019-10-05] MEDS: HEPARIN SODIUM/DEXTROSE 25,000 UNITS/500 ML BAG IV SCH (16:55)
[2019-10-05] MEDS: DOXAZosin MESYLATE 4 MG TAB PO SCH (21:13)
[2019-10-05] MEDS: MONTELUKAST SODIUM 10 MG TABLET PO SCH (21:14)
[2019-10-05] MEDS: ROSUVASTATIN CALCIUM 20 MG TAB PO SCH (21:14)
[2019-10-05 22:10] LABS: Partial Thromboplastin Ratio 1.7
[2019-10-05 22:13] LABS: Partial Thromboplastin Time 48.5 Seconds (21.0-31.0)
[2019-10-05 23:51] VITALS: TEMP 97.5
[2019-10-06 05:02] LABS: Hematocrit (blood only) 28.5 % (42-52); Hemoglobin 9.4 g/dL (14.0-18.0); Mean Corpuscular Hemoglobin 36.3 pg (25-34); Platelet Count 242 K/uL (130-400); RDW Coefficient of Variation 14.4 % (11.5-14.5); RDW Standard Deviation 57.6 fL (36.4-46.3); Red Blood Count 2.59 M/uL (4.7-6.1); White Blood Count 5.42 K/uL (4.8-10.8)
[2019-10-06 05:18] LABS: BUN Creatinine Ratio 12.3 (10-20); Calcium 9.1 mg/dl (8.5-10.1); Est GFR (African American) 13.6; Est GFR (Non-African American) 11.8; Potassium 3.8 mmol/L (3.5-5.1)
[2019-10-06] MEDS: HydrALAZINE 10 MG TAB PO SCH ×2 (05:56→13:51)
[2019-10-06] MEDS: TOBRAMYCIN SULFATE INH SCH (07:24)
[2019-10-06] MEDS: ALBUT/IPRATROP 3MG/0.5MG NEB 3 ML VIAL NEB SCH (07:24)
[2019-10-06 07:26] VITALS: O2SAT 98
[2019-10-06 09:12] VITALS: PULSE 63
[2019-10-06] MEDS: FLUTICASONE/VILANTEROL 200/25MCG 14 PUFFS/INHALER INH SCH (09:12)
[2019-10-06] MEDS: FUROSEMIDE 80 MG TAB PO SCH (09:13)
[2019-10-06] MEDS: MYCOPHENOLATE SODIUM 180 MG TAB PO SCH (09:14)
[2019-10-06] MEDS: guaiFENesin 600 MG TABCR PO SCH (09:14)
[2019-10-06] MEDS: AMLODIPINE BESYLATE 5 MG TAB PO SCH (09:15)
[2019-10-06] MEDS: CLOPIDOGREL BISULFATE 75 MG TAB PO SCH (09:16)
[2019-10-06] MEDS: predniSONE 5 MG TAB PO SCH (09:16)
[2019-10-06] MEDS: OMEGA-3 (PURIFIED FISH OIL) 1 GM CAP PO SCH (09:16)
[2019-10-06] MEDS: PANTOprazole 40 MG TAB PO SCH (09:17)
[2019-10-06] MEDS: TACROLIMUS 0.5 MG CAP PO SCH (09:17)
[2019-10-06] MEDS: FLUOXETINE HCL 20 MG CAP PO SCH (09:18)
[2019-10-06] MEDS: MAGNESIUM CHLORIDE 64MG DELAYED REL TAB PO SCH (09:18)
[2019-10-06] MEDS: SODIUM BICARBONATE 650 MG TAB PO SCH ×2 (09:18→13:53)
[2019-10-06] MEDS: METOPROLOL SUCC 50MG EXT REL TAB PO SCH (09:19)
[2019-10-06] MEDS: VORICONAZOLE 200 MG TABLET PO SCH (09:20)
[2019-10-06] MEDS: AZITHROMYCIN 250 MG TAB PO SCH (09:21)
[2019-10-06] MEDS: ACYCLOVIR 400 MG TAB PO SCH (09:21)
[2019-10-06] MEDS: INSULIN ASPART 100 UNITS/ML 3 ML PEN SC SCH ×2 (09:27→13:48)
[2019-10-06 13:51] VITALS: BP 115/53
--- NOTE | 2019-10-06 13:56 | Discharge Summary ---
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 difficile who presents to ED secondary to chest pain and shortness of breath x5 hours. He was in his normal state of health until today when he developed precordial chest pain. Pain was nonradiating, rated 6/10, described as stabbing, improved with nitro, nothing made it worse. He did have associated shortness of breath. He also admits to a cough that started today that was productive. He denies any recent fever, chills, sweats, lightheadedness, dizziness, syncope, palpitations, nausea, vomiting, abdominal pain. He does still produce urine and denies any dysuria, increased urgency or frequency. He moved his bowels just prior to my arrival he denies melena or hematochezia. He monitors his weight daily and denies any weight gain or weight loss. He denies any lower extremity edema, orthopnea or PND. His appetite is otherwise been okay. He complains of feeling similar to when he had a heart attack. He did not take any of his medications today. In ED patient was significantly hypertensive, 200/100 upon my evaluation. He was on 3 L of O2 maintaining a saturation of 92%. His heart rate was 52. He was afebrile. Lab work notable for WBC 8.8, H&H 10.0 and 30.8, platelet 173, BUN 40, creatinine 4.08, glucose 123, lactic acid 1.9, troponin .070, mag 1.5. Chest x-ray revealed cardiomegaly, bullous emphysema, chronic interstitial right lung disease, mild congestive failure versus interstitial inflammatory process. In ED he received 1g mag sulfate. Admission Exam Per Admitting Provider Constitutional: Chronically ill-appearing male, WD/WN vitals as above, NAD, sitting up in bed, hard of hearing, answers questions appropriately Head: Normocephalic, Atraumatic Eyes: PERRL, conjunctivae normal, anicteric sclerae ENMT: external ear and nose normal, oropharynx normal Neck: trachea midline, no thyromegaly normal visual inspection Respiratory: Increased respiratory effort, lungs clear to auscultation, no wheeze, rales, rhonchi. On O2 via NC 3L, no accessory muscle use Cardiovascular: Bradycardic rate, regular rhythm, no murmur, no edema Vessels: no JVD appreciated or carotid bruit , right radial AV fistula Chest: normal inspection of chest Abdomen: normal bowel sounds, soft, nontender, no hepatosplenomegaly Musculoskeletal: no cyanosis or clubbing, extremities motor strength 5/5 Skin: no rashes, warm and dry normal turgor Neurologic: PERRL, EOMI, accommodation nl, no face palsy, no dysarthria CN's II-XI intact bilaterally and moves all extremities Psychiatric: A+Ox3, euthymic affect Lymphatic: no cervical or axillary lymphadenopathy : deferred Principal Diagnosis Acute on chronic systolic heart failure Right upper extremity DVT Progression of Chronic Kidney Disease Stage 5 Hypertensive urgency Discharge Exam Constitutional + well hydrated; no acute distress Eyes PERRL, conjunctivae normal, anicteric sclerae ENMT external ear and nose normal, oropharynx normal Ears: + hearing impairment (Reports his hearing aide batteries were . Communicated by writing) Respiratory normal respiratory effort, lungs clear to auscultation Cardiovascular Rate/Rhythm: regular rate and regular rhythm Extremities: + pedal edema (Trace. Much improved) Gastrointestinal (Abdomen) normal bowel sounds, soft, nontender, no hepatosplenomegaly Musculoskeletal no cyanosis or clubbing, extremities motor strength 5/5 Neurologic PERRL, EOMI, accommodation nl, no face palsy, no dysarthria Psychiatric A+Ox3, euthymic affect Discharge Data Allergies Allergy/AdvReac Type Severity Reaction Status Date / Time levofloxacin Allergy Intermediate ANAPHYLAXIS Verified 09/27/19 14:18 oxycodone Allergy Intermediate ANAPHYLAXIS Verified 09/27/19 14:18 cat dander Allergy Unknown CHEST Verified 09/27/19 14:18 TIGHTNESS Consultations 09/27/19 14:43 ED Decision to Admit Stat 09/27/19 15:51 Consult Cardiology Routine Ordered Studies 09/27/19 15:39 CT chest wo con Stat FINDINGS: Thyroid: Atrophic and heterogeneous. Thoracic aorta: There is mild atherosclerotic calcification of the thoracic aorta, which is normal in caliber and demonstrates standard 3-vessel arch anatomy. Heart: The heart is enlarged and without pericardial effusion. An atrial septal closure device is noted. The coronary arteries are densely calcified. There is diminished attenuation of the cardiac blood pool as compared to the myocardium suggesting anemia. The pulmonary arteries are dilated suggesting pulmonary artery hypertension. Lungs and pleural spaces: Postoperative change is noted at the right lung base. Changes of advanced interstitial lung disease are seen in the right mid to lower lung with extensive subpleural reticulation, groundglass opacities, honeycombi ng, and traction bronchiectasis. A large bleb at the right apex is unchanged from previous. The presumed left lung transplant shows no evidence of interstitial lung disease. Groundglass consolidation is seen throughout the left lung, with mild associated intralobular septal thickening. There are small to moderate pleural effusions, left larger than right with associated atelectasis. Mediastinum: There are numerous subcentimeter mediastinal lymph nodes. Dyan: Not well assessed without IV contrast. Axillae: There is no axillary lymphadenopathy. Upper abdomen: There is a fat-containing supraumbilical hernia. A small hiatal hernia is noted. A 2.4 cm cystic lesion in the pancreatic head is similar to previous. This was better assessed on the 2019 MRI. Skeletal structures: The skeletal structures are osteopenic. Degenerative change is noted in the shoulders and thoracic spine. No lytic or blastic bony lesions are seen. Soft tissues: Gynecomastia is noted. IMPRESSION: 1. Cardiomegaly. Intralobular septal thickening throughout the left lung suggests a component of congestive failure. 2. Groundglass consolidation is seen throughout the left lung. This could represent pulmonary edema and/or an infectious/inflammatory pneumonitis. Clinical correlation will be essential. 3. Small to moderate pleural effusions, left larger than right. 4. Changes of advanced interstitial lung disease are present in the right lung with evidence of previous surgery. 5. Additional findings as above. 09/27/19 17:28 US venous doppler UE RT Routine FINDINGS: There is nearly occlusive to occlusive to deep venous thrombosis identified within branches of the right brachial vein. Superficial venous thrombus is present in the cephalic vein within the antecubital fossa extending the forearm. Superficial venous thrombus approaches the dialysis fistula in the forearm. The fistula itself appears patent. The right internal jugular and axillary veins are patent and normally compressible. Normal venous waveforms and augmentation are seen within the right subclavian vein. The basilic vein is clear. The visualized radial vein is patent. The ulnar vein was not visualized. IMPRESSION: 1. There is nearly occlusive to occlusive deep venous thrombosis identified within branches of the brachial vein. 2. Occlusive superficial venous thrombus is present within the cephalic vein in the antecubital fossa extending into the forearm. See above. Hospital Course (1) Chest pain: likely secondary to Hypertensive urgency, not ACS Chest pain resolved on admission Troponin was mildly elevated (chronic) in setting of CKD Chest pain has resolved with nitro per pt. Was hypoxic requiring 3L of O2 via NC. now on room air 1st troponin elevated at 0.070, which is baseline for pt. No ST or t wave changes noted on EKG Echo ordered and reviewed w/ cardiology Blood pressure currently controlled No recurrent complaint of chest pain (2) Hypoxia: (3) CHF (congestive heart failure): Acute hypoxic respiratory failure - multiple etiologies Pulmonary edema in setting of hypertensive urgency Acute on chronic systolic HF Concern for poss. PE (confirmed RUE brachial vein DVT) Infectious pneumonitis in setting of immunosuppression, groundglass opacity noted on chest CT Patient has a complex medical history including status post left lung transplant in 2013 on chronic immunosuppressive therapy, CAD, history of ischemic cardiomyopathy with improved EF to 55, ESRD with mature right AV fistula currently not on hemodialysis, anemia of chronic disease, PAF, history of DVT, history of CVA, HTN, HLD, hyperparathyroidism, history of C. difficile colitis (recurrent) who presented to ED secondary to chest pain and shortness of breath. Initially on 6L of suppl. O2 via EMS, then down to 3L of suppl. O2 in the ED. Chest CT reported Cardiomegaly, Intralobular septal thickening throughout the left lung suggests a component of congestive failure; Groundglass consolidation is seen throughout the left lung. This could represent pulmonary edema and/or an infectious/inflammatory pneumonitis. Clinical correlation will be essential. 3. Small to moderate pleural effusions, left larger than right. 4. Changes of advanced interstitial lung disease are present in the right lung with evidence of previous surgery. Got some iv Lasix Admitting providers spoke with Dr. Hansen (Pulmonary) to discuss CT results - Feels likely etiology of Pulmonary edema in setting of HTN urgency vs infectious pneumonitis in setting of immunosuppression. Pt low risk for dat novel COVID due to no known exposure and pt has been at home. Ground glass opacities also seen on previous CT. Recommended starting broad spectrum antibiotics Started Vanco/zosyn initially,recommend 7-10 days of Abx therapy Patient clinically improved and antibiotics switched to PO Augmentin. Completed antibiotic therapy Per Dr Stoner's note, [facility], [place], operated by [facility] lung transplant center contacted, discussed with Dr. Lyndon Washington, who is aware about patient's admission Per nephrology, now on 80 mg p.o. Lasix Monitor electrolytes. (4) CKD (chronic kidney disease) stage 5, GFR less than 15 ml/min: Patient with acute on chronic CKD stage V Baseline creatinine 3.5, he does have matured AV fistula Cr is 4.28 today Consulted nephrology, Dr. Burnett - ezequiel discussed on admission Currently on po lasix 80 bid Discharge on this. 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 K is 3.4 today. Replete Will follow-up with [facility] outpatient (5) HTN (hypertension): Hypertensive urgency Patient significantly hypertensive in ED Likely in setting of volume overload, end-stage renal disease, and CHF Got IV Lasix 80 mg and prn hydralazine on admission continue metoprolol and cardura BP is currently controlled. Continue current antihypertensive regimen (6) Hypomagnesemia: Monitor and replete as needed (7) Diabetes mellitus, type II: Last A1C in [employer] 5.5 09/2018 Current A1C 5.5% as well, well controlled (8) Idiopathic pulmonary fibrosis: (9) Lung transplant status: History of left lung transplant in 2012 On tacrolimus, mycophenolate and prednisone Check tacrolimus and mycophenolate levels Continue Advair, tobramycin neb Continue chronic antibiotics Transplant Center at [facility], [place], operated by [facility] contacted per Dr Stoner Pt should contact them after d/c to inquire about follow up appointment (10) Paroxysmal atrial fibrillation: Hx of pAFib/ Aflutter Most recently off OAC due to hx of GIB Continue metoprolol Currently rate controlled INR 2 today. Goal of 2-3 (11) Hyperparathyroidism: Continue calcitriol (12) Chronic anemia: On aranesp weekly (13) HLD (hyperlipidemia): Continue lovaza (14) Deep vein thrombosis, upper right extremity: RUE Brachial vein DVT Prior hx of RUE DVT, and b/l LE DVT Most recently treated for ~ 3 months w/ warfarin Was started on IV heparin to coumadin bridge Patient is on ASA and plavix. Dr Stoner noted he has prior hx of GI bleed, ASA was discontinued (Dr. Stoner discussed w/ cardiology) Could not confirm history of GI bleed with patient or chart review today Dr Stoner discussed with lung transplant physician at [facility], as well as cardiology and nephrology here at [facility] per her note INR is now 2. Discharged on coumadin 2.5mg daily. To check INR in 2 days To follow up with Anticoagulation clinic Home health services set up Provided basic coumadin education. I also called and went through management plan and medication changes Follow up: PCP Dr. Lindo upon discharge Outpt Membership Assistant, Dr. Sterling, in 7-14 days Lung transplant team at [facility], [place], operated by [facility] Total Time Total Time Spent Total Time Spent (In Minutes): 45 Total Time Includes: Examination of the Patient, Discharge Planning, Medication Reconciliation and Other (Discharge discussion with ) Discharge Plan Discharge Items Patient Disposition: Home - Home Health Services Reason For Visit: CHEST PAIN Discharge Diagnosis: Acute on chronic systolic heart failure Right upper extremity DVT Progression of Chronic Kidney Disease Stage 5 Hypertensive urgency Activity: Resume your previous activity Non-emergency contact: Primary Care Provider and Alignment Mechanic Call non-emergency contact if: you have any medication questions and your symptoms worsen Follow-up/Referrals: Scotty Chopra DO [Physician] - 10/09/19 3:30 pm Carlton Lindo DO [Primary Care Provider] - 10/11/19 11:00 am (Please note that [facility] clinic will call you to make a 7-[address] Sterling. ) Diet: Carb Consistent or DM2 and Heart Healthy Fluids: 1800ml (7 cups) Ambulatory Orders: Basic Metabolic Panel (Routine) Timeframe: 1 Week Location: Determined by Patient Ordered By: Preethi Chand Prothrombin Time INR (Routine) Timeframe: 2 Days Location: Determined by Patient Ordered By: Preethi Chand Addtl Attending Provider Instructions: Mr Bill. You came to the hospital complaining of chest pain. You were evaluated and treated for above listed diagnoses. You were also found to have right upper extremity blood clot and was started on warfarin. Your kidney function continues to worsen. It is very important you follow up with your Membership Assistant/Kidney doctor. As we discussed, please watch out for any signs of bleeding and follow up with Anticoagulation clinic for management of your warfarin (coumadin). Please do INR in 2 days. Please take your medications as prescribed. Please follow up with your Primary doctor and Alignment Mechanic. It was a pleasure taking care of you. Pending Studies at Discharge: No Stand-Alone Forms: My [facility] Flowline, Smoking Cessation Medications and DC Order Prescriptions: New hydralazine 10 mg Tablet 10 mg PO Q8 30 Days Qty: 90 RF: 0 amlodipine [Norvasc] 5 mg Tablet 10 mg PO QAM 30 Days Qty: 60 RF: 0 warfarin 2.5 mg tablet 2.5 mg PO DAILY Qty: 30 RF: 0 Continued pantoprazole [Protonix] 40 mg tablet,delayed release (DR/EC) 40 mg PO BID RF: 0 Slow-Mag 71.5 mg tablet,delayed release (DR/EC) 143 mg PO DAILY RF: 0 rosuvastatin [Crestor] 40 mg tablet 40 mg PO HS Qty: 90 RF: 0 mycophenolate sodium [Myfortic] 180 mg tablet,delayed release (DR/EC) 180 mg PO BID RF: 0 tacrolimus [Prograf] 0.5 mg capsule 0.5 mg PO BID RF: 0 fluticasone propion-salmeterol [Advair Diskus] 500-50 mcg/dose blister with device 1 puffs INH Q12H RF: 0 albuterol sulfate 2.5 mg /3 mL (0.083 %) solution for nebulization 2.5 mg continuous nebulization BID RF: 0 fluoxetine 20 mg capsule 40 mg PO DAILY RF: 0 montelukast [Singulair] 10 mg tablet 10 mg PO DAILY RF: 0 insulin lispro [Humalog U-100 Insulin] 100 unit/mL solution 0 - 140 sliding scale dose subcut TID PRN (Reason: Hyperglycemia) RF: 0 doxazosin 4 mg tablet 8 mg PO HS RF: 0 clopidogrel [Plavix] 75 mg tablet 75 mg PO DAILY Qty: 30 RF: 0 cyclobenzaprine 5 mg tablet 5 mg PO TID PRN (Reason: Muscle Spasm) RF: 0 sodium bicarbonate 650 mg tablet 1,300 mg PO TID Qty: 60 RF: 0 azithromycin [Zithromax] 250 mg tablet 250 mg PO MOWEFR RF: 0 metoprolol succinate [Toprol XL] 100 mg tablet extended release 24 hr 100 mg PO DAILY RF: 0 prednisone 5 mg tablet 5 mg PO DAILY RF: 0 acetaminophen [Tylenol Extra Strength] 500 mg Tablet 500 mg PO Q6H PRN (Reason: Fever Or Pain) RF: 0 omega-3 acid ethyl esters [Lovaza] 1 gram capsule 2 cap PO BID RF: 0 tobramycin 300 mg/4 mL Solution For Nebulization 150 mg INHALATION Q12H RF: 0 posaconazole [Noxafil] 100 mg Tablet,Delayed Release (Dr/Ec) 300 mg PO DAILY RF: 0 acyclovir 400 mg tablet 400 mg PO BID RF: 0 Aranesp (in polysorbate) 60 mcg/0.3 mL syringe 60 mcg subcut MO RF: 0 sulfamethoxazole-trimethoprim [Bactrim] 400-80 mg Tablet 1 tab PO MOTH RF: 0 Changed furosemide [Lasix] 40 mg tablet 80 mg PO DAILY 30 Days Qty: 30 RF: 0 Discontinued aspirin [Aspir-81] 81 mg Tablet,Delayed Release (Dr/Ec) 81 mg PO DAILY RF: 0 Discharge Orders: Discharge Order (Routine); Ordered 10/06/19 Ordered By: Preethi Woods/Other Patient Handouts: DVT, DVT Prevention, DVT Dc, Warfarin tablets Admission Data Admit Date/Time: 09/27/19 15:27 Attending Provider: Preethi Chand I. Admit Provider: Dain Stoner Primary Care Provider: Carlton Lindo Other Providers: Dain Stoner ; Scotty Chopra ; [facility] Other Interventions: Discharge Summary Assessment (RN) Last Done: 10/06/19 14:06 DC Date/Time DO NOT enter until pt leaves facility: 10/06/19 16:10
== END 2019-10-06 16:10 | disposition home health service (06) | DRG 291 ==
LOC: ED 12:39 → SUATTDRO 15:27 → 2S 15:27 → 3E 10-03 08:55

== ENCOUNTER 2019-10-30 17:55 | Inpatient (IN) ==
[2019-10-30] MEDS ORDERED: methylPREDNISolone 125 MG/2 ML VIAL IV STA (18:20)
[2019-10-30] MEDS ORDERED: ALBUT/IPRATROP 3MG/0.5MG NEB 3 ML VIAL NEB STA (18:20)
[2019-10-30 18:57] LABS: Mean Corpuscular Hgb Conc 32.6 g/dL (32-36)
--- NOTE | 2019-10-30 19:17 | XRay Report ---
XR chest 1V portable CLINICAL HISTORY: Dyspnea COMPARISON STUDY: 09/28/2019 FINDINGS: The heart remains enlarged. There is pulmonary emphysema. There are persistent bilateral pu lmonary airspace opacities similar to the preceding examination. There is a large right upper lobe bu lla. The left basilar airspace opacities appear slightly progressive. An element of pulmonary vascula r congestion must again be considered.[ IMPRESSION: 1. Bullous emphysema 2. Cardiomegaly 3. Persistent bilateral pulmonary airspace opacities with slight progression of the left lower lung z one airspace opacities. 4. Suspected superimposed mild pulmonary vascular congestion ACT 112: Negative or not required by law. Electronically signed by: Bon Ariza M.D. 10/30/2019 7:15 PM
[2019-10-30 19:21] LABS: INR 3.3 (0.9-1.1); Partial Thromboplastin Ratio 1.6; Prothrombin Time 32.3 Seconds (9.0-12.0)
[2019-10-30] MEDS ORDERED: FUROSEMIDE 40 MG/4 ML VIAL IV STA ×2 (19:23→20:06)
[2019-10-30 19:24] LABS: Partial Thromboplastin Time 45.5 Seconds (21.0-31.0)
[2019-10-30 19:25] LABS: Hematocrit (blood only) 26.1 % (42-52); Hemoglobin 8.5 g/dL (14.0-18.0); Mean Corpuscular Hemoglobin 35.3 pg (25-34); Mean Corpuscular Volume 108.3 fL (80-100); RDW Coefficient of Variation 15.9 % (11.5-14.5); RDW Standard Deviation 62.7 fL (36.4-46.3); Red Blood Count 2.41 M/uL (4.7-6.1); White Blood Count 10.87 K/uL (4.8-10.8)
[2019-10-30 19:38] LABS: Albumin Level 3.3 gm/dl (3.4-5.0); BUN Creatinine Ratio 12.9 (10-20); Bilirubin,Total 0.4 mg/dl (0.2-1); Calcium 8.5 mg/dl (8.5-10.1); Creatinine Clr Calc Pharmacy 10.4 ml/min; Est GFR (African American) 8.4; Est GFR (Non-African American) 7.2; Globulin 3.4 gm/dl (2.5-4.0); Potassium 4.1 mmol/L (3.5-5.1); Total Protein 6.7 gm/dl (6.4-8.2); Troponin I 0.051 ng/ml (0-0.045)
[2019-10-30 20:10] LABS: Mean Platelet Volume 12.6 fL (7.4-10.4); Platelet Count 136 K/uL (130-400)
[2019-10-30 20:11] LABS: Eosinophils # (auto) 0.15 K/uL (0-0.5); Eosinophils % (auto) 1.4 %; Immature Granulocytes # (auto) 0.03 K/uL (0.00-0.02); Immature Granulocytes % (auto) 0.3 %; Lymphocytes # (auto) 0.59 K/uL (1.2-3.4); Lymphocytes % (auto) 5.4 %; Monocytes # (auto) 0.44 K/uL (0.11-0.59); Neutrophils # (auto) 9.66 K/uL (1.4-6.5); Neutrophils % (auto) 88.9 %
[2019-10-30 20:13] LABS: Macrocytosis Present; Platelet Estimate Decreased (Normal); Tear Drop Cells 1+
[2019-10-30] MEDS ORDERED: ATROPINE SULFATE 0.1 MG/ML 10ML SYR IV STA (21:24)
[2019-10-30 21:47] LABS: Base Excess ABG -5.2 mEq/L (-9-1.8); HCO3 ABG 17 mmol/L (19-24); Oxygen Saturation ABG 99.3 % (90-95); PCO2 ABG 22 mmHg (35-46); PO2 ABG 157 mmHg (80-95)
[2019-10-30 21:48] LABS: Allen Test POS (Pos)
--- NOTE | 2019-10-30 22:33 | History & Physical Report ---
Date of Service October 30, 2019 Assessment & Plan (1) Acute hypoxemic respiratory failure: Shortness of breath Multifactorial : Decompensated heart failure, cardiorenal syndrome (ESRD, dialysis initiation contemplated by microbiology manager as per outpatient note) ? symptomatic bradycardia (?SSS, hx AF on Coumadin, INR slightly supratherapeutic) Viral bronchitis, no sepsis CAD status post stent hypertension, stable chronic respiratory failure secondary to IPF status post lung transplantation on immunosuppressive/antimicrobial suppression regimen hx PTLD/skin cancer as per records DM2 insulin requiring, well-controlled as of recent hemoglobin A1c of 5.24 September 2019 chronic anemia secondary to CKD, hemoglobin at baseline past tobacco abuse PCU Supplemental O2 Atropine as needed symptomatic bradycardia, hold beta-cally for now until patient seen by Cardiology Nephrology consult RE ESRD follow-up Supportive management for viral bronchitis. Doxycycline in place of chronic azithromycin Rx given QTC prolongation inpatient. N.p.o. after midnight in anticipation of any procedure. Hold Coumadin until patient evaluated by specialists. ISS BG goal [id number] DVT prophylaxis. SCDs while INR less than 2 while Coumadin on hold. Full code Text document was generated using [employer] voice recognition software. It may contain grammatical or spelling errors. Kindly contact undersigned for clarification of any documentation item in question. History of Present Illness Chief Complaint: Shortness of breath Primary Care Provider: Carlton Lindo, History obtained from patient and records. History somewhat limited from patient given hearing impairment. Medical history significant for chronic systolic heart failure secondary to ischemic cardiomyopathy (EF 30 to 35% TTE 2019), CAD status post stent, A. fib on Coumadin, history of DVT as per records, hypertension, chronic respiratory failure secondary to pulmonary fibrosis status post lung transplantation on immunosuppressive/antimicrobial suppression regimen, post transplant lymphoproliferative disorder as per records, skin cancer as per records, DM2 insulin requiring, ESRD, chronic anemia (baseline hemoglobin 8-9), mood disorder, past tobacco abuse. Recent confinement September 2019 for decompensated heart failure. Few days history of worsening shortness of breath usually on exertion, some fluid retention, dry cough without fever, chills. No known sick contacts/out-of-town travel. Denies aspiration. No chest pain. O2 sats noted to be as low as 80s at home today. Cardiac rate 40s as per record. No syncope or dizziness as per patient. Patient microbiology manager recommended additional Lasix and holding beta-cally. Patient advised to send patient to ER for evaluation if with persistent symptoms for possible initiation of dialysis. At the ER, O2 sats 80s at one point. Cardiac rate 30s to 50s. Patient given Solu-Medrol, Lasix, neb treatment at the emergency room. 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 Allergies Allergy/AdvReac Type Severity Reaction Status Date / Time levofloxacin Allergy Intermediate ANAPHYLAXIS Verified 10/30/19 23:01 oxycodone Allergy Intermediate ANAPHYLAXIS Verified 10/30/19 23:01 cat dander Allergy Unknown CHEST Verified 10/30/19 23:02 TIGHTNESS Home Medications Home Medications Medication Instructions Recorded Confirmed Type albuterol sulfate 2.5 mg CONTINUOUS NEBULIZATION BID 03/02/19 10/30/19 History ml clopidogrel 75 mg tablet 75 mg PO DAILY #30 tab 03/02/19 10/30/19 History doxazosin 4 mg tablet 8 mg PO HS tab 03/02/19 10/30/19 History fluoxetine 20 mg capsule 40 mg PO DAILY cap 03/02/19 10/30/19 History fluticasone 500 mcg-salmeterol 50 1 puffs INH Q12H 03/02/19 10/30/19 History mcg/dose blistr powdr for inhalation insulin lispro 100 unit/mL 0 - 140 sliding scale dose SUBCUT 03/02/19 10/30/19 History subcutaneous solution TID PRN ml magnesium chloride 71.5 mg 143 mg PO DAILY tab 03/02/19 10/30/19 History (magnesium chloride) tablet,delayed release montelukast 10 mg tablet 10 mg PO DAILY tab 03/02/19 10/30/19 History mycophenolate sodium 180 mg 180 mg PO BID tab 03/02/19 10/30/19 History tablet,delayed release pantoprazole 40 mg tablet,delayed 40 mg PO BID tab 03/02/19 10/30/19 History release rosuvastatin 40 mg tablet 40 mg PO HS #90 tab 03/02/19 10/30/19 History tacrolimus 0.5 mg capsule 0.5 mg PO BID cap 03/02/19 10/30/19 History acetaminophen [Tylenol Extra 500 mg PO Q6H PRN 04/21/19 10/30/19 History Strength] azithromycin [Zithromax] 250 mg PO 3XWK 04/21/19 10/30/19 History metoprolol succinate [Toprol XL] 100 mg PO DAILY 04/21/19 10/30/19 History omega-3 acid ethyl esters [Lovaza] 2 cap PO BID 04/21/19 10/30/19 History posaconazole [Noxafil] 300 mg PO DAILY 04/21/19 10/30/19 History prednisone 5 mg PO DAILY 04/21/19 10/30/19 History tobramycin 150 mg INHALATION Q12H 04/21/19 10/30/19 History cyclobenzaprine 5 mg tablet 5 mg PO TID PRN 07/04/19 10/30/19 History acyclovir 400 mg PO BID 09/27/19 10/30/19 History sulfamethoxazole-trimethoprim 1 tab PO 2XWK 09/27/19 10/30/19 History [Bactrim] amlodipine [Norvasc] 10 mg PO QAM 30 Days #60 tab 10/06/19 10/30/19 Rx darbepoetin nicholas in polysorbat 100 100 mcg SUBCUT WEEKLY #4 ml 10/23/19 10/30/19 Rx mcg/mL in polysorbate injection sodium bicarbonate 650 mg tablet 1,300 mg PO BID #60 tab 10/23/19 10/30/19 Rx calcitriol 0.25 mcg PO 3XWK 10/30/19 10/30/19 History furosemide [Lasix] 80 mg PO DAILY 10/30/19 10/30/19 History hydralazine 10 mg PO Q8H 10/30/19 10/30/19 History warfarin 2.5 mg PO QPM 10/30/19 10/30/19 History Past Med/Surg History Medical History Arthritis (Chronic) Chronic a-fib (Chronic) Chronic anemia (Chronic) Chronic diarrhea PT HAS BEEN SEEN AND EVALUATED BY GI FOR C-DIFF (NEGATIVE). GI CONCERNED AND FEELS SCOPE IS NECESSARY CKD (chronic kidney disease) stage 5, GFR less than 15 ml/min (Chronic) Diabetes mellitus, type II (Chronic) GERD (gastroesophageal reflux disease) (Chronic) Glaucoma (Chronic) H/O: CVA (cerebrovascular accident) (Chronic) HLD (hyperlipidemia) (Chronic) HTN (hypertension) (Chronic) Hyperglycemia (Chronic) Hyperparathyroidism (Chronic) Idiopathic pulmonary fibrosis (Chronic) Mood disorder (Chronic) Myocardial infarction (Acute) Paroxysmal atrial fibrillation (Chronic) Renal lesion Squamous cell carcinoma of skin of scalp (Chronic) Thrombocytopenia (Chronic) Surgical History History of cardiac cath STENTS X2 MAY 2018 (SEE [facility] [place] ) Hx of heart artery stent (Chronic) S/P MITCHELL to LAD and circumflex after NSTEMI in 05/2018 Lung transplant status (Chronic) S/P patent foramen ovale closure (Resolved) Family History Father , in his seventies of cancer No problems noted. Mother , age 88 of CHF No problems noted. Daughter Age: 46 No problems noted. Son Age: 45 No problems noted. Other No significant family history Social History Preferred Language: [place] Communication Ability: Effective Branch Or Department Chief Librarian Required: No Beliefs That Will Affect Care: None marital status: Current Living Situation: Spouse current occupational status: retired Other Information That Helps Us Care for You: No Feels Safe at Home: Yes Safety Concerns: Feels Safe At This Time Smoking Status: Former smoker Tobacco Type: cigarettes ; Cigarettes Per Day: HX OF BRIEF SOCIAL USE WHILE IN , QUIT 45 YEARS AGO ; Do You Dip or Chew Tobacco: No ; Smoking End Date: 35 years ago ; Second Hand Exposure: No ; Tobacco Cessation Education Requested by Patient: No Hx Alcohol Use: Yes Alcohol type: hard liquor Hx Substance Use: No caffeine: Yes (1 cup in am) Review of Systems Review of Systems: As per HPI, all 10 systems reviewed, all other ROS negative Physical Exam Physical Exam: GENERAL: Comfortable, no respiratory distress SKIN: Pallor , warm HEENT: Pale palpebral conjunctivae, no ptosis, dry buccal mucosa, nasal cannula in place NECK : Supple, no tenderness CHEST : Decreased breath sounds, expiratory wheezes , no tenderness HEART : Bradycardic , no obvious murmurs ABDOMEN: Some distention, nontender EXTREMITIES : Minimal LE swelling, no LE tenderness, no other conspicuous deformities noted NEUROLOGIC : Coherent, no facial asymmetry, marked hearing impairment, no other gross focality Results & Data Results & Data ([facility]) Vital Signs (Past 12 Hours) Vital Signs Temp Pulse Pulse Resp BP Pulse Ox 10/30/19 22:01 49 L 20 92 10/30/19 22:00 46 L 20 130/68 92 10/30/19 21:31 46 L 18 128/83 93 10/30/19 21:30 45 L 19 89 L 10/30/19 21:01 50 L 25 H 147/60 H 87 L 10/30/19 21:00 50 L 28 H 88 L 10/30/19 20:30 49 L 24 138/71 90 10/30/19 20:00 43 L 26 H 133/63 91 10/30/19 19:30 36 L 24 137/57 L 94 10/30/19 19:28 42 L 20 94 10/30/19 19:14 92 10/30/19 19:00 49 L 20 133/58 L 10/30/19 18:30 39 L 23 118/62 10/30/19 18:29 43 L 19 10/30/19 18:23 46 L 26 H 120/49 L 10/30/19 18:07 37.1 C 43 L 20 127/56 L 88 L Laboratory Results Laboratory Results WBC 10.87 K/uL (4.8-10.8) H 10/30/19 18:46 RBC 2.41 M/uL (4.7-6.1) L 10/30/19 18:46 Hgb 8.5 g/dL (14.0-18.0) L 10/30/19 18:46 Hct 26.1 % (42-52) L 10/30/19 18:46 MCV 108.3 fL (80-100) H 10/30/19 18:46 MCH 35.3 pg (25-34) H 10/30/19 18:46 MCHC 32.6 g/dL (32-36) 10/30/19 18:46 RDW Std Deviation 62.7 fL (36.4-46.3) H 10/30/19 18:46 RDW Coeff of Ros 15.9 % (11.5-14.5) H 10/30/19 18:46 Plt Count 136 K/uL (130-400) 10/30/19 18:46 MPV 12.6 fL (7.4-10.4) H 10/30/19 18:46 Immature Gran % (Auto) 0.3 % 10/30/19 18:46 Neut % (Auto) 88.9 % 10/30/19 18:46 Lymph % (Auto) 5.4 % 10/30/19 18:46 Craig % (Auto) 4.0 % 10/30/19 18:46 Eos % (Auto) 1.4 % 10/30/19 18:46 Baso % (Auto) 0.0 % 10/30/19 18:46 Immature Gran # (Auto) 0.03 K/uL (0.00-0.02) H 10/30/19 18:46 Neut # (Auto) 9.66 K/uL (1.4-6.5) H 10/30/19 18:46 Lymph # (Auto) 0.59 K/uL (1.2-3.4) L 10/30/19 18:46 Craig # (Auto) 0.44 K/uL (0.11-0.59) 10/30/19 18:46 Eos # (Auto) 0.15 K/uL (0-0.5) 10/30/19 18:46 Baso # (Auto) 0.00 K/uL (0-0.2) 10/30/19 18:46 Platelet Estimate Decreased (Normal) L 10/30/19 18:46 Macrocytosis Present 10/30/19 18:46 Tear Drop Cells 1+ 10/30/19 18:46 PT 32.3 Seconds (9.0-12.0) H 10/30/19 18:46 INR 3.3 (0.9-1.1) H 10/30/19 18:46 APTT 45.5 Seconds (21.0-31.0) H* 10/30/19 18:46 PTT Ratio 1.6 10/30/19 18:46 ABG pH 7.50 (7.35-7.45) H 10/30/19 21:37 ABG pCO2 22 mmHg (35-46) L 10/30/19 21:37 ABG pO2 157 mmHg (80-95) H 10/30/19 21:37 ABG HCO3 17 mmol/L (19-24) L 10/30/19 21:37 ABG O2 Saturation 99.3 % (90-95) H 10/30/19 21:37 ABG Base Excess -5.2 mEq/L (-9-1.8) 10/30/19 21:37 Danial Test POS (Pos) 10/30/19 21:37 Barometric Pressure 733.1 mm/Hg 10/30/19 21:37 Oxygen Given 3L 10/30/19 21:37 Sodium 140 mmol/L (136-145) 10/30/19 18:46 Potassium 4.1 mmol/L (3.5-5.1) 10/30/19 18:46 Chloride 108 mmol/L (98-107) H 10/30/19 18:46 Carbon Dioxide 21 mmol/L (21-32) 10/30/19 18:46 Anion Gap 11.0 (3-11) 10/30/19 18:46 BUN 86 mg/dl (7-18) H 10/30/19 18:46 Creatinine 6.72 mg/dl (0.6-1.4) H* 10/30/19 18:46 Est Cr Clr Drug Dosing 10.4 ml/min 10/30/19 18:46 Est GFR ( Amer) 8.4 10/30/19 18:46 Est GFR (Non-Af Amer) 7.2 10/30/19 18:46 BUN/Creatinine Ratio 12.9 (10-20) 10/30/19 18:46 Glucose 143 mg/dl (70-99) H 10/30/19 18:46 Calcium 8.5 mg/dl (8.5-10.1) 10/30/19 18:46 Total Bilirubin 0.4 mg/dl (0.2-1) 10/30/19 18:46 AST 11 U/L (15-37) L 10/30/19 18:46 ALT 19 U/L (12-78) 10/30/19 18:46 Alkaline Phosphatase 58 U/L (45-117) 10/30/19 18:46 Troponin I 0.051 ng/ml (0-0.045) H* 10/30/19 18:46 Total Protein 6.7 gm/dl (6.4-8.2) 10/30/19 18:46 Albumin 3.3 gm/dl (3.4-5.0) L 10/30/19 18:46 Globulin 3.4 gm/dl (2.5-4.0) 10/30/19 18:46 Albumin/Globulin Ratio 1.0 (0.9-2) 10/30/19 18:46 Specimen Hemolysis 10/30/19 18:46 COVID-19 PCR NEGATIVE (Negative) 10/30/19 21:25 Diagnostic Findings Chest x-ray : 1. Bullous emphysema 2. Cardiomegaly 3. Persistent bilateral pulmonary airspace opacities with slight progression of the left lower lung zone airspace opacities. 4. Suspected superimposed mild pulmonary vascular congestion EKG as per my interpretation : Rate 50, A. fib, LAD, LAFB, RBBB, T wave abnormalities lateral leads, QTC 500
[2019-10-30 22:38] LABS: Thyroid Stimulating Hormone 1.36 uIu/ml (0.300-4.500); Troponin I 0.05 ng/ml (0-0.045)
--- NOTE | 2019-10-30 22:44 | Emergency Department Note ---
History of Present Illness General Chief complaint: Shortness of Breath/Dyspnea Stated complaint: SOB, COUGH, DIALYSIS TOMORROW Source: patient Mode of arrival: ambulatory Limitations: no limitations and other (hard of hearing) History of Present Illness Provider complaint: SOB Onset (ago): hour(s) 6 This patient is a 78-year-old male who presents to the emergency department with complaints of shortness of breath. The patient has a history of lung transplant but states he does not wear home oxygen. He complains of increased work of breathing over the last several hours. Patient denies any fevers or significant cough. He denies any chest pain. Patient states he did try nebulizer prior to arrival but it has not helped significantly. Of note the patient had a fistula placed and is scheduled for dialysis to begin tomorrow. He denies any significant weight gain or swelling. Home Medications Home Medications Medication Instructions Recorded Confirmed Type albuterol sulfate 2.5 mg CONTINUOUS NEBULIZATION BID 03/02/19 09/27/19 History ml clopidogrel 75 mg tablet 75 mg PO DAILY #30 tab 03/02/19 10/30/19 History doxazosin 4 mg tablet 8 mg PO HS tab 03/02/19 10/30/19 History fluoxetine 20 mg capsule 40 mg PO DAILY cap 03/02/19 10/30/19 History fluticasone 500 mcg-salmeterol 50 1 puffs INH Q12H 03/02/19 10/30/19 History mcg/dose blistr powdr for inhalation insulin lispro 100 unit/mL 0 - 140 sliding scale dose SUBCUT 03/02/19 10/30/19 History subcutaneous solution TID PRN ml magnesium chloride 71.5 mg 143 mg PO DAILY tab 03/02/19 10/30/19 History (magnesium chloride) tablet,delayed release montelukast 10 mg tablet 10 mg PO DAILY tab 03/02/19 10/30/19 History mycophenolate sodium 180 mg 180 mg PO BID tab 03/02/19 10/30/19 History tablet,delayed release pantoprazole 40 mg tablet,delayed 40 mg PO BID tab 03/02/19 10/30/19 History release rosuvastatin 40 mg tablet 40 mg PO HS #90 tab 03/02/19 09/27/19 History tacrolimus 0.5 mg capsule 0.5 mg PO BID cap 03/02/19 10/30/19 History acetaminophen [Tylenol Extra 500 mg PO Q6H PRN 04/21/19 10/30/19 History Strength] azithromycin [Zithromax] 250 mg PO 3XWK 04/21/19 10/30/19 History metoprolol succinate [Toprol XL] 100 mg PO DAILY 04/21/19 10/30/19 History omega-3 acid ethyl esters [Lovaza] 2 cap PO BID 04/21/19 09/27/19 History posaconazole [Noxafil] 300 mg PO DAILY 04/21/19 10/30/19 History prednisone 5 mg PO DAILY 04/21/19 09/27/19 History tobramycin 150 mg INHALATION Q12H 04/21/19 10/30/19 History cyclobenzaprine 5 mg tablet 5 mg PO TID PRN 07/04/19 10/30/19 History acyclovir 400 mg PO BID 09/27/19 10/30/19 History sulfamethoxazole-trimethoprim 1 tab PO MOTH 09/27/19 09/27/19 History [Bactrim] amlodipine [Norvasc] 10 mg PO QAM 30 Days #60 tab 10/06/19 10/30/19 Rx darbepoetin nicholas in polysorbat 100 100 mcg SUBCUT WEEKLY #4 ml 10/23/19 10/30/19 Rx mcg/mL in polysorbate injection sodium bicarbonate 650 mg tablet 1,300 mg PO BID #60 tab 10/23/19 10/30/19 Rx calcitriol 0.25 mcg PO 3XWK 10/30/19 10/30/19 History furosemide [Lasix] 80 mg PO DAILY 10/30/19 10/30/19 History hydralazine 10 mg PO Q8H 10/30/19 10/30/19 History warfarin 2.5 mg PO QPM 10/30/19 10/30/19 History Allergies Allergy/AdvReac Type Severity Reaction Status Date / Time levofloxacin Allergy Intermediate ANAPHYLAXIS Verified 10/30/19 23:01 oxycodone Allergy Intermediate ANAPHYLAXIS Verified 10/30/19 23:01 cat dander Allergy Unknown CHEST Verified 10/30/19 23:02 TIGHTNESS Past Med/Surg History Medical History Arthritis (Chronic) Chronic a-fib (Chronic) Chronic anemia (Chronic) Chronic diarrhea PT HAS BEEN SEEN AND EVALUATED BY GI FOR C-DIFF (NEGATIVE). 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 Mother , age 88 of CHF No problems noted. Daughter Age: 46 No problems noted. Son Age: 45 No problems noted. Other No significant family history Social History Preferred Language: Luxembourgish Communication Ability: Effective Cuffer Required: No Beliefs That Will Affect Care: None marital status: Current Living Situation: Spouse current occupational status: retired Feels Safe at Home: Yes Smoking Status: Never smoker Tobacco Type: cigarettes ; Cigarettes Per Day: HX OF BRIEF SOCIAL USE WHILE IN , QUIT 45 YEARS AGO ; Second Hand Exposure: No ; Hx Alcohol Use: Yes (few drinks a week) Alcohol type: hard liquor Hx Substance Use: No caffeine: Yes (1 cup in am) Review of Systems See HPI for pertinent positives & negatives. and A total of 10 systems reviewed and were otherwise negative Physical Exam Vital Signs Vital Signs - 24 hr 10/30/19 18:07 10/30/19 18:14 10/30/19 18:23 Temperature 37.1 C Temperature Source Oral Pulse Rate 43 L 46 L Pulse Rate [Right Radial] Pulse Rate from SpO2 Sensor Pulse Rhythm Regular Pulse Strength Normal Respiratory Rate 20 26 H Respiratory Effort / Characteristics Non-Labored Spontaneous Respiratory Depth Normal Respiratory Pattern Regular Regular Blood Pressure 127/56 L 120/49 L Blood Pressure Mean 79 80 Pulse Oximetry 88 L Oxygen Delivery Method Nasal Cannula Room Air Oxygen Flow Rate Sepsis Recent Fever Within 48 Hours No Sepsis Action Taken by Nursing No Action Required 10/30/19 18:29 10/30/19 18:30 10/30/19 19:00 Temperature Temperature Source Pulse Rate 43 L 39 L 49 L Pulse Rate [Right Radial] Pulse Rate from SpO2 Sensor Pulse Rhythm Pulse Strength Respiratory Rate 19 23 20 Respiratory Effort / Characteristics Respiratory Depth Respiratory Pattern Blood Pressure 118/62 133/58 L Blood Pressure Mean 94 82 Pulse Oximetry Oxygen Delivery Method Oxygen Flow Rate Sepsis Recent Fever Within 48 Hours Sepsis Action Taken by Nursing 10/30/19 19:14 10/30/19 19:28 10/30/19 19:30 Temperature Temperature Source Pulse Rate 36 L Pulse Rate [Right Radial] 42 L Pulse Rate from SpO2 Sensor 41 L Pulse Rhythm Pulse Strength Respiratory Rate 20 24 Respiratory Effort / Characteristics Non-Labored Spontaneous Respiratory Depth Respiratory Pattern Blood Pressure 137/57 L Blood Pressure Mean 91 Pulse Oximetry 92 94 94 Oxygen Delivery Method Nasal Cannula Nasal Cannula Oxygen Flow Rate 3 3 Sepsis Recent Fever Within 48 Hours Sepsis Action Taken by Nursing 10/30/19 20:00 10/30/19 20:30 10/30/19 21:00 Temperature Temperature Source Pulse Rate 43 L 49 L 50 L Pulse Rate [Right Radial] Pulse Rate from SpO2 Sensor 40 L 46 L 45 L Pulse Rhythm Pulse Strength Respiratory Rate 26 H 24 28 H Respiratory Effort / Characteristics Respiratory Depth Respiratory Pattern Blood Pressure 133/63 138/71 Blood Pressure Mean 77 89 Pulse Oximetry 91 90 88 L Oxygen Delivery Method Oxygen Flow Rate Sepsis Recent Fever Within 48 Hours Sepsis Action Taken by Nursing 10/30/19 21:01 10/30/19 21:30 10/30/19 21:31 Temperature Temperature Source Pulse Rate 50 L 45 L 46 L Pulse Rate [Right Radial] Pulse Rate from SpO2 Sensor 49 L 47 L 44 L Pulse Rhythm Pulse Strength Respiratory Rate 25 H 19 18 Respiratory Effort / Characteristics Respiratory Depth Respiratory Pattern Blood Pressure 147/60 H 128/83 Blood Pressure Mean 70 93 Pulse Oximetry 87 L 89 L 93 Oxygen Delivery Method Oxygen Flow Rate Sepsis Recent Fever Within 48 Hours Sepsis Action Taken by Nursing 10/30/19 22:00 05/11/20 22:01 Temperature Temperature Source Pulse Rate 46 L 49 L Pulse Rate [Right Radial] Pulse Rate from SpO2 Sensor 48 L 45 L Pulse Rhythm Pulse Strength Respiratory Rate 20 20 Respiratory Effort / Characteristics Respiratory Depth Respiratory Pattern Blood Pressure 130/68 Blood Pressure Mean 107 Pulse Oximetry 92 92 Oxygen Delivery Method Oxygen Flow Rate Sepsis Recent Fever Within 48 Hours Sepsis Action Taken by Nursing Vital signs reviewed. General: Chronically 78 yo male, in no significant distress. HEENT: No scleral icterus, PERRLA, neck supple. Atraumatic. Cardiovascular: Bradycardic and irregular, no extra sounds. Pulmonary: Increased work of breathing, rhonchi bilaterally. Abdomen: Soft, nontender, nondistended, positive bowel sounds. Musculoskeletal: Atraumatic, no peripheral edema. Neurologic: Patient awake alert and oriented x 3 Skin: Warm, dry, no rash Course Administered Medications Discontinued Medications Albuterol (Duoneb) 3 ml NEB NOW STA Stop: 10/30/19 18:21 Last Admin: 10/30/19 19:28 Dose: 3 ml Documented by: [id number] Atropine Sulfate (Atropine Sulfate) 0.5 mg IV NOW STA Stop: 10/30/19 21:25 Last Admin: 10/30/19 22:06 Dose: 0.5 mg Documented by: [id number] Furosemide (Lasix) 40 mg IV NOW STA Stop: 10/30/19 19:24 Last Admin: 10/30/19 19:46 Dose: 40 mg Documented by: [id number] Furosemide (Lasix) 60 mg IV NOW STA Stop: 10/30/19 20:07 Last Admin: 10/30/19 20:36 Dose: 60 mg Documented by: [id number] Methylprednisolone (Solumedrol) 125 mg IV NOW STA Stop: 10/30/19 18:21 Last Admin: 10/30/19 19:01 Dose: 125 mg Documented by: [id number] Medical Decision Making Medical Records Attestation: I reviewed the patient's medical records. Home Medications Current Medication List: was personally reviewed by me Laboratory Data Attestation: I reviewed the patient's lab results. Result diagrams: 10/30/19 18:46 10/30/19 18:46 Lab Results 10/30/19 10/30/19 10/30/19 Range/Units 18:46 18:46 18:46 WBC 10.87 H (4.8-10.8) K/uL RBC 2.41 L (4.7-6.1) M/uL Hgb 8.5 L (14.0-18.0) g/dL Hct 26.1 L (42-52) % MCV 108.3 H (80-100) fL MCH 35.3 H (25-34) pg MCHC 32.6 (32-36) g/dL RDW Std Deviation 62.7 H (36.4-46.3) fL RDW Coeff of Ros 15.9 H (11.5-14.5) % Plt Count 136 (130-400) K/uL MPV 12.6 H (7.4-10.4) fL Immature Gran % (Auto) 0.3 % Neut % (Auto) 88.9 % Lymph % (Auto) 5.4 % [place] % (Auto) 4.0 % Eos % (Auto) 1.4 % Baso % (Auto) 0.0 % Immature Gran # (Auto) 0.03 H (0.00-0.02) K/uL Neut # (Auto) 9.66 H (1.4-6.5) K/uL Lymph # (Auto) 0.59 L (1.2-3.4) K/uL [place] # (Auto) 0.44 (0.11-0.59) K/uL Eos # (Auto) 0.15 (0-0.5) K/uL Baso # (Auto) 0.00 (0-0.2) K/uL Platelet Estimate Decreased L (Normal) Macrocytosis Present Tear Drop Cells 1+ PT 32.3 H (9.0-12.0) Seconds INR 3.3 H (0.9-1.1) APTT 45.5 H* (21.0-31.0) Seconds PTT Ratio 1.6 ABG pH (7.35-7.45) ABG pCO2 (35-46) mmHg ABG pO2 (80-95) mmHg ABG HCO3 (19-24) mmol/L ABG O2 Saturation (90-95) % ABG Base Excess (-9-1.8) mEq/L Danial Test (Pos) Barometric Pressure mm/Hg Oxygen Given Sodium 140 (136-145) mmol/L Potassium 4.1 (3.5-5.1) mmol/L Chloride 108 H (98-107) mmol/L Carbon Dioxide 21 (21-32) mmol/L Anion Gap 11.0 (3-11) BUN 86 H (7-18) mg/dl Creatinine 6.72 H* (0.6-1.4) mg/dl Est Cr Clr Drug Dosing 10.4 ml/min Est GFR ( Amer) 8.4 Est GFR (Non-Af Amer) 7.2 BUN/Creatinine Ratio 12.9 (10-20) Glucose 143 H (70-99) mg/dl Calcium 8.5 (8.5-10.1) mg/dl Magnesium (1.8-2.4) mg/dl Total Bilirubin 0.4 (0.2-1) mg/dl AST 11 L (15-37) U/L ALT 19 (12-78) U/L Alkaline Phosphatase 58 (45-117) U/L Troponin I 0.051 H* (0-0.045) ng/ml Total Protein 6.7 (6.4-8.2) gm/dl Albumin 3.3 L (3.4-5.0) gm/dl Globulin 3.4 (2.5-4.0) gm/dl Albumin/Globulin Ratio 1.0 (0.9-2) TSH (0.300-4.500) uIu/ml Specimen Hemolysis COVID-19 PCR (Negative) 10/30/19 10/30/19 10/30/19 Range/Units 21:25 21:37 21:40 WBC (4.8-10.8) K/uL RBC (4.7-6.1) M/uL Hgb (14.0-18.0) g/dL Hct (42-52) % MCV (80-100) fL MCH (25-34) pg MCHC (32-36) g/dL RDW Std Deviation (36.4-46.3) fL RDW Coeff of Ros (11.5-14.5) % Plt Count (130-400) K/uL MPV (7.4-10.4) fL Immature Gran % (Auto) % Neut % (Auto) % Lymph % (Auto) % [place] % (Auto) % Eos % (Auto) % Baso % (Auto) % Immature Gran # (Auto) (0.00-0.02) K/uL Neut # (Auto) (1.4-6.5) K/uL Lymph # (Auto) (1.2-3.4) K/uL [place] # (Auto) (0.11-0.59) K/uL Eos # (Auto) (0-0.5) K/uL Baso # (Auto) (0-0.2) K/uL Platelet Estimate (Normal) Macrocytosis Tear Drop Cells PT (9.0-12.0) Seconds INR (0.9-1.1) APTT (21.0-31.0) Seconds PTT Ratio ABG pH 7.50 H (7.35-7.45) ABG pCO2 22 L (35-46) mmHg ABG pO2 157 H (80-95) mmHg ABG HCO3 17 L (19-24) mmol/L ABG O2 Saturation 99.3 H (90-95) % ABG Base Excess -5.2 (-9-1.8) mEq/L Danial Test POS (Pos) Barometric Pressure 733.1 mm/Hg Oxygen Given 3L Sodium (136-145) mmol/L Potassium (3.5-5.1) mmol/L Chloride (98-107) mmol/L Carbon Dioxide (21-32) mmol/L Anion Gap (3-11) BUN (7-18) mg/dl Creatinine (0.6-1.4) mg/dl Est Cr Clr Drug Dosing ml/min Est GFR ( Amer) Est GFR (Non-Af Amer) BUN/Creatinine Ratio (10-20) Glucose (70-99) mg/dl Calcium (8.5-10.1) mg/dl Magnesium 2.0 (1.8-2.4) mg/dl Total Bilirubin (0.2-1) mg/dl AST (15-37) U/L ALT (12-78) U/L Alkaline Phosphatase (45-117) U/L Troponin I 0.050 H* (0-0.045) ng/ml Total Protein (6.4-8.2) gm/dl Albumin (3.4-5.0) gm/dl Globulin (2.5-4.0) gm/dl Albumin/Globulin Ratio (0.9-2) TSH 1.360 (0.300-4.500) uIu/ml Specimen Hemolysis COVID-19 PCR NEGATIVE (Negative) Imaging Data Radiologist's Impression: XR chest 1V portable CLINICAL HISTORY: Dyspnea COMPARISON STUDY: 09/28/2019 FINDINGS: The heart remains enlarged. There is pulmonary emphysema. There are persistent bilateral pulmonary airspace opacities similar to the preceding examination. There is a large right upper lobe bulla. The left basilar airspace opacities appear slightly progressive. An element of pulmonary vascular congestion must again be considered.[ IMPRESSION: 1. Bullous emphysema 2. Cardiomegaly 3. Persistent bilateral pulmonary airspace opacities with slight progression of the left lower lung zone airspace opacities. 4. Suspected superimposed mild pulmonary vascular congestion ACT 112: Negative or not required by law. Electronically signed by: Bon Ariza M.D. 10/30/2019 7:15 PM Dictated: 10/30/191913 Transcribed: 10/30/191913 ECG Data Attestation: I personally reviewed and interpreted this ECG as follows: Rate (beats per minute): 52 Rhythm: + atrial fibrillation ECG Intervals/blocks: + IVCD and + Prolonged QT ECG ST segments: + Nonspecific ST abnormalities ECG Findings: no PACs and no PVCs Blood Pressure Blood Pressure Findings: Elevated blood pressure Blood Pressure Disposition: further management by hospitalist MDM Narrative An order for cardiac monitoring was placed and the patient is found to be in a rate controlled atrial fibrillation at approximately 50 bpm. This patient was evaluated and appeared to be in no significant distress. He has coarse breath sounds bilaterally and is noted to be moderately hypoxic at 88% on room air. Patient was placed on nasal cannula oxygen with good improv ement. Patient was given a DuoNeb treatment and IV Solu-Medrol. Chest x-ray was performed and reveals evidence of chronic change with persistent bilateral pulmonary airspace opacities and suspected mild pulmonary vascular congestion superimposed. Patient was given 40 mg of IV Lasix. Patient's troponin is mildly elevated at 0.051. INR is noted to be 3.3. EKG reveals nonspecific changes but no evidence of acute ST elevation SC. Case was discussed with Dr. Huitron of the [facility] hospitalist who has requested consultation with nephrology. It was recommended that the patient receive 60 mg additional of IV Lasix by Dr. Reynoso. The patient will be evaluated by the hospitalist service for further management. Impression & Plan Acute exacerbation of idiopathic pulmonary fibrosis, Lung transplant status, Elevated troponin, ESRD (end stage renal disease) on dialysis Discharge Plan Visit Data Chief Complaint: Shortness of Breath/Dyspnea Stated Complaint: SOB, COUGH, DIALYSIS TOMORROW ED Provider: Brigitte Morales Discharge Problem: Acute exacerbation of idiopathic pulmonary fibrosis, Lung transplant status, Elevated troponin, ESRD (end stage renal disease) on dialysis Forms Stand Alone Forms: [facility] 20lines Prescriptions Prescriptions: No Action Aranesp (in polysorbate) 100 mcg/mL solution 100 mcg subcut WEEKLY Qty: 4 RF: 3 sodium bicarbonate 650 mg tablet 1,300 mg PO BID Qty: 60 RF: 6 pantoprazole [Protonix] 40 mg tablet,delayed release (DR/EC) 40 mg PO BID RF: 0 Slow-Mag 71.5 mg tablet,delayed release (DR/EC) 143 mg PO DAILY RF: 0 rosuvastatin [Crestor] 40 mg tablet 40 mg PO HS Qty: 90 RF: 0 mycophenolate sodium [Myfortic] 180 mg tablet,delayed release (DR/EC) 180 mg PO BID RF: 0 tacrolimus [Prograf] 0.5 mg capsule 0.5 mg PO BID RF: 0 fluticasone propion-salmeterol [Advair Diskus] 500-50 mcg/dose blister with device 1 puffs INH Q12H RF: 0 albuterol sulfate 2.5 mg /3 mL (0.083 %) solution for nebulization 2.5 mg continuous nebulization BID RF: 0 fluoxetine 20 mg capsule 40 mg PO DAILY RF: 0 montelukast [Singulair] 10 mg tablet 10 mg PO DAILY RF: 0 insulin lispro [Humalog U-100 Insulin] 100 unit/mL solution 0 - 140 sliding scale dose subcut TID PRN (Reason: Hyperglycemia) RF: 0 doxazosin 4 mg tablet 8 mg PO HS RF: 0 clopidogrel [Plavix] 75 mg tablet 75 mg PO DAILY Qty: 30 RF: 0 cyclobenzaprine 5 mg tablet 5 mg PO TID PRN (Reason: Muscle Spasm) RF: 0 azithromycin [Zithromax] 250 mg tablet 250 mg PO 3XWK RF: 0 metoprolol succinate [Toprol XL] 100 mg tablet extended release 24 hr 100 mg PO DAILY RF: 0 prednisone 5 mg tablet 5 mg PO DAILY RF: 0 acetaminophen [Tylenol Extra Strength] 500 mg Tablet 500 mg PO Q6H PRN (Reason: Fever Or Pain) RF: 0 omega-3 acid ethyl esters [Lovaza] 1 gram capsule 2 cap PO BID RF: 0 tobramycin 300 mg/4 mL Solution For Nebulization 150 mg INHALATION Q12H RF: 0 posaconazole [Noxafil] 100 mg Tablet,Delayed Release (Dr/Ec) 300 mg PO DAILY RF: 0 acyclovir 400 mg tablet 400 mg PO BID RF: 0 sulfamethoxazole-trimethoprim [Bactrim] 400-80 mg Tablet 1 tab PO 2XWK RF: 0 amlodipine [Norvasc] 5 mg Tablet 10 mg PO QAM 30 Days Qty: 60 RF: 0 calcitriol 0.25 mcg capsule 0.25 mcg PO 3XWK RF: 0 hydralazine 10 mg tablet 10 mg PO Q8H RF: 0 warfarin 2.5 mg tablet 2.5 mg PO QPM RF: 0 furosemide [Lasix] 40 mg tablet 80 mg PO DAILY RF: 0
[2019-10-30 22:55] LABS: Influenza A virus by PCR Neg for Influ A (Neg); Influenza B virus by PCR Neg for Influ B (Neg)
[2019-10-31] MEDS ORDERED: GLUCOSE 10 TABS/TUBE PO PRN (00:19)
[2019-10-31] MEDS ORDERED: PROMETHAZINE HCL 12.5 MG in SODIUM CHLORIDE 0.9% 50 ML IV PRN (00:19)
[2019-10-31] MEDS ORDERED: GLUCOSE 40% GEL 15 GM TUBE PO PRN (00:19)
[2019-10-31] MEDS ORDERED: NITROGLYCERIN SL 0.4 MG/TAB TAB SL PRN (00:19)
[2019-10-31] MEDS ORDERED: DEXTROSE 50% 50 ML SYRINGE IV PRN (00:19)
[2019-10-31] MEDS ORDERED: CYCLOBENZAPRINE HCL 5 MG TAB PO PRN (00:19)
[2019-10-31] MEDS ORDERED: GLUCAGON FOR INJ 1 MG VIAL SQ PRN (00:19)
[2019-10-31] MEDS ORDERED: TOBRAMYCIN INH SCH (00:19)
[2019-10-31] MEDS ORDERED: ATROPINE SULFATE 0.1 MG/ML 10ML SYR IV PRN (00:49)
[2019-10-31] MEDS: HydrALAZINE 10 MG TAB PO SCH ×4 (02:07→20:26)
[2019-10-31] MEDS: guaiFENesin 600 MG TABCR PO SCH ×3 (02:07→20:26)
[2019-10-31] MEDS: SULFA/TRIMETH 400/80MG TAB PO SCH (02:08)
[2019-10-31] MEDS: INSULIN ASPART 100 UNITS/ML 3 ML PEN SC SCH ×5 (02:09→22:39)
[2019-10-31 04:49] LABS: Hematocrit (blood only) 24.9 % (42-52); Hemoglobin 8.3 g/dL (14.0-18.0); Immature Granulocytes # (auto) 0.03 K/uL (0.00-0.02); Immature Granulocytes % (auto) 0.4 %; Lymphocytes # (auto) 0.09 K/uL (1.2-3.4); Lymphocytes % (auto) 1.3 %; Mean Corpuscular Hemoglobin 35.8 pg (25-34); Mean Corpuscular Hgb Conc 33.3 g/dL (32-36); Mean Corpuscular Volume 107.3 fL (80-100); Mean Platelet Volume 12.8 fL (7.4-10.4); Monocytes # (auto) 0.02 K/uL (0.11-0.59); Monocytes % (auto) 0.3 %; Neutrophils # (auto) 7.04 K/uL (1.4-6.5); Platelet Count 131 K/uL (130-400); RDW Coefficient of Variation 16.2 % (11.5-14.5); RDW Standard Deviation 62.8 fL (36.4-46.3); Red Blood Count 2.32 M/uL (4.7-6.1); White Blood Count 7.18 K/uL (4.8-10.8)
[2019-10-31 05:10] LABS: INR 3.6 (0.9-1.1); Partial Thromboplastin Ratio 1.8; Prothrombin Time 35.3 Seconds (9.0-12.0)
[2019-10-31 05:13] LABS: Partial Thromboplastin Time 48.9 Seconds (21.0-31.0)
[2019-10-31 05:30] LABS: BUN Creatinine Ratio 12.7 (10-20); Calcium 8.4 mg/dl (8.5-10.1); Creatinine Clr Calc Pharmacy 4.7 ml/min; Est GFR (African American) 8.3; Est GFR (Non-African American) 7.1; Potassium 4.4 mmol/L (3.5-5.1)
[2019-10-31] MEDS: ALBUT/IPRATROP 3MG/0.5MG NEB 3 ML VIAL NEB SCH ×4 (06:28→19:18)
[2019-10-31] MEDS: TOBRAMYCIN SULFATE INH SCH ×2 (06:34→19:19)
[2019-10-31] MEDS: MYCOPHENOLATE SODIUM 180 MG TAB PO SCH ×2 (08:09→20:28)
[2019-10-31] MEDS: AMLODIPINE BESYLATE 5 MG TAB PO SCH (08:09)
[2019-10-31] MEDS: FLUTICASONE/VILANTEROL 100/25MCG 14 PUFFS/INHALER INH SCH (08:10)
[2019-10-31] MEDS: predniSONE 5 MG TAB PO SCH (08:11)
[2019-10-31] MEDS: PANTOprazole 40 MG TAB PO SCH ×2 (08:12→20:27)
[2019-10-31] MEDS: TACROLIMUS 0.5 MG CAP PO SCH ×2 (08:12→20:28)
[2019-10-31] MEDS: MONTELUKAST SODIUM 10 MG TABLET PO SCH (08:12)
[2019-10-31] MEDS: SODIUM BICARBONATE 650 MG TAB PO SCH ×2 (08:13→20:29)
[2019-10-31] MEDS: FLUOXETINE HCL 20 MG CAP PO SCH (08:13)
[2019-10-31] MEDS: ACYCLOVIR 400 MG TAB PO SCH ×2 (08:15→20:30)
[2019-10-31] MEDS: DOXYCYCLINE HYCLATE 100 MG CAP PO SCH ×2 (08:15→20:30)
[2019-10-31] MEDS ORDERED: INSULIN GLARGINE SOLOSTAR 100 UNITS/ML 3 ML PEN SC SCH (09:00)
--- NOTE | 2019-10-31 11:58 | Nephrology Consultation ---
Date of Consultation October 31, 2019 Assessment & Plan (1) ESRD (end stage renal disease) on dialysis: Abdi has ESRD due to multifactorial etiology including OLIVIER, tobramycin, HTN and DM. Has mature right radiocephalic AV fistula. Has hypertension which seems to be well controlled, on labetalol and doxazosin, has not been on CRISSY- inhibitor/ARB. History of diabetes without retinopathy, on insulin. He has been on PPI and Tobramycin for long time for his lung transplant. No history of NSAID use. No h/o DM, CAD or CHF. Renal function has been progressively worsening after recent hospital admission with persistent volume overload and progressive shortness of breath despite being on high dose diuretics. Also has been feeling pretty poorly with fatigue, poor appetite and most of the time staying in bed. --start on hemodialysis today slow start with low blood flow aim for 1 liter UF and 2 hours treatment today. If AV fistula functional well and patient tolerates dialysis well plan for 3 hours tomorrow. --consult social service to set up outpatient dialysis at [facility]. --continue NaBicarb 1 tab BID for now, eventually will discontinue next few days once established with dialysis and adjust with dialysis bath, continue and calcitriol 0.5 mcg 3 times a week. --check phosphate may need to start on phosphate binder start on Renal Cap --right arm nephrology precaution --epogen 26562 units x1 dose with dialysis today --called Bobbi and updated her. Will follow Thank you for allowing me to participate in your patient's care. It was a pleasure to see Abdi (2) Anemia secondary to renal failure: (3) Hyperparathyroidism: (4) HTN (hypertension): (5) Lung transplant status: (6) Diabetes mellitus, type II: History of Present Illness Reason for Consultation: ESRD , needs to start on HD. Attending Physician: Dex Beth MD History of Present Illness Mr. Bill is 78 old past medical history including advanced CKD hypertension diabetes and left lung transplant, admitted to the hospital with progressive shortness of breath worsening renal function and need to start on dialysis. Nephrology consult was requested to manage new start dialysis. Electronic medical records labs and imaging are reviewed in detail during patient's visit. Abdi has ESRD secondary to multifactorial etiology including OLIVIER, tobramycin, HTN and DM b/l b/l cr was 2.0, until May 2016. Since then his renal function has been slowly worsening and recently over last few months renal function has been progressively worsening rather rapidly and lately creatinine staying around 6-7 significant electrolyte abnormality. Has been getting progressively short of breath despite being on high-dose diuretics, has been having uremic symptoms including fatigue, loss of appetite. Had right radiocephalic AV fistula placed by Dr. Oconnell on 05/28/17, currently mature and ready to be used. Ex-smoker, no family h/o CKD or ESRD, father had history of lung cancer. No history of NSAID use. Has chronic anemia , on FELICIANO. sHPT, on calcitriol. On NaHCO3 for metabolic acidosis Hypertension well controlled, on labetalol and doxazosin, has not been on CRISSY- inhibitor/ARB. Previously could not tolerate Procardia and hydralazine due to dizziness, amlodipine due to edema and clonidine due to fatigue. Not on ACEI /ARB due to pretty advanced CKD as K is already high History of diabetes without retinopathy, on insulin. He has been on PPI and Tobramycin for long time for his lung transplant. Has chronic anemia , on FELICIANO. 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 His lung transplant was complicated by multiple pneumonia and infection with multiple opportunistic bacteria, virus and fungi, and had at least 15 bronchoscopies since his transplant but no episode of rejection, on Acyclovir and Bactrim. H/O B/L LE edema, DVT. Previously had Holter monitoring an episode of LOC. Has skin cancer, s/p surgery. Has B/L knee DJD, can not have surgery now as he is on Plavix. History of recurrent C diff colitis, ventral hernia, evaluated by surgery in August 2018, no indication for surgery at this time considering multiple different comorbidity. CT abdomen pelvis at that time was concerning for pancreatic head mass, eventual biopsy showed pseudocyst. He was also found to have 2.5 cm left renal mass. Ultrasound from 2017 was negative. Evaluated by Urology with MRI which was negative for any discrete renal mass, recommended 6 m f/u with repeat MRI. Had STEMI in September 2018, cath on 10/04/2018 with MITCHELL to LAD. Had repeat catheterization for repeated chest pain on 10/08/2018 with no new finding of Re infarction. Has been getting progressively short of breath, despite being on high dose diuretics after recent hospital admission. Was on Lasix 80 milligram twice a day however had lab done yesterday showing creatinine 6.7 significant other electrolyte abnormality including metabolic acidosis. Has been having progressive shortness of breath and overall feeling poorly. Allergies Allergy/AdvReac Type Severity Reaction Status Date / Time levofloxacin Allergy Intermediate ANAPHYLAXIS Verified 10/30/19 23:01 oxycodone Allergy Intermediate ANAPHYLAXIS Verified 10/30/19 23:01 cat dander Allergy Unknown CHEST Verified 10/30/19 23:02 TIGHTNESS Home Medications Home Medications Medication Instructions Recorded Confirmed Type albuterol sulfate 2.5 mg CONTINUOUS NEBULIZATION BID 03/02/19 10/30/19 History ml clopidogrel 75 mg tablet 75 mg PO DAILY #30 tab 03/02/19 10/30/19 History doxazosin 4 mg tablet 8 mg PO HS tab 03/02/19 10/30/19 History fluoxetine 20 mg capsule 40 mg PO DAILY cap 03/02/19 10/30/19 History fluticasone 500 mcg-salmeterol 50 1 puffs INH Q12H 03/02/19 10/30/19 History mcg/dose blistr powdr for inhalation insulin lispro 100 unit/mL 0 - 140 sliding scale dose SUBCUT 03/02/19 10/30/19 History subcutaneous solution TID PRN ml magnesium chloride 71.5 mg 143 mg PO DAILY tab 03/02/19 10/30/19 History (magnesium chloride) tablet,delayed release montelukast 10 mg tablet 10 mg PO DAILY tab 03/02/19 10/30/19 History mycophenolate sodium 180 mg 180 mg PO BID tab 03/02/19 10/30/19 History tablet,delayed release pantoprazole 40 mg tablet,delayed 40 mg PO BID tab 03/02/19 10/30/19 History release rosuvastatin 40 mg tablet 40 mg PO HS #90 tab 03/02/19 10/30/19 History tacrolimus 0.5 mg capsule 0.5 mg PO BID cap 03/02/19 10/30/19 History acetaminophen [Tylenol Extra 500 mg PO Q6H PRN 04/21/19 10/30/19 History Strength] azithromycin [Zithromax] 250 mg PO 3XWK 04/21/19 10/30/19 History metoprolol succinate [Toprol XL] 100 mg PO DAILY 04/21/19 10/30/19 History omega-3 acid ethyl esters [Lovaza] 2 cap PO BID 04/21/19 10/30/19 History posaconazole [Noxafil] 300 mg PO DAILY 04/21/19 10/30/19 History prednisone 5 mg PO DAILY 04/21/19 10/30/19 History tobramycin 150 mg INHALATION Q12H 04/21/19 10/30/19 History cyclobenzaprine 5 mg tablet 5 mg PO TID PRN 07/04/19 10/30/19 History acyclovir 400 mg PO BID 09/27/19 10/30/19 History sulfamethoxazole-trimethoprim 1 tab PO 2XWK 09/27/19 10/30/19 History [Bactrim] amlodipine [Norvasc] 10 mg PO QAM 30 Days #60 tab 10/06/19 10/30/19 Rx darbepoetin nicholas in polysorbat 100 100 mcg SUBCUT WEEKLY #4 ml 10/23/19 10/30/19 Rx mcg/mL in polysorbate injection sodium bicarbonate 650 mg tablet 1,300 mg PO BID #60 tab 10/23/19 10/30/19 Rx calcitriol 0.25 mcg PO 3XWK 10/30/19 10/30/19 History furosemide [Lasix] 80 mg PO DAILY 10/30/19 10/30/19 History hydralazine 10 mg PO Q8H 10/30/19 10/30/19 History warfarin 2.5 mg PO QPM 10/30/19 10/30/19 History Patient History Medical History Arthritis (Chronic) Chronic a-fib (Chronic) Chronic anemia (Chronic) Chronic diarrhea PT HAS BEEN SEEN AND EVALUATED BY GI FOR C-DIFF (NEGATIVE). GI CONCERNED AND FEELS SCOPE IS NECESSARY CKD (chronic kidney disease) stage 5, GFR less than 15 ml/min (Chronic) Diabetes mellitus, type II (Chronic) GERD (gastroesophageal reflux disease) (Chronic) Glaucoma (Chronic) H/O: CVA (cerebrovascular accident) (Chronic) HLD (hyperlipidemia) (Chronic) HTN (hypertension) (Chronic) Hyperglycemia (Chronic) Hyperparathyroidism (Chronic) Idiopathic pulmonary fibrosis (Chronic) Mood disorder (Chronic) Myocardial infarction (Acute) Paroxysmal atrial fibrillation (Chronic) Renal lesion Squamous cell carcinoma of skin of scalp (Chronic) Thrombocytopenia (Chronic) Surgical History History of cardiac cath STENTS X2 MAY 2018 ([place] [facility] [place] ) Hx of heart artery stent (Chronic) S/P MITCHELL to LAD and circumflex after NSTEMI in 05/2018 Lung transplant status (Chronic) S/P patent foramen ovale closure (Resolved) Family History Father , in his seventies of cancer No problems noted. Mother , age 88 of CHF No problems noted. Daughter Age: 46 No problems noted. Son Age: 45 No problems noted. Other No significant family history Social History Preferred Language: Armenian Communication Ability: Effective Administrative Aide Required: No Beliefs That Will Affect Care: None marital status: Current Living Situation: Spouse current occupational status: retired Other Information That Helps Us Care for You: No Feels Safe at Home: Yes Safety Concerns: Feels Safe At This Time Smoking Status: Former smoker Tobacco Type: cigarettes ; Cigarettes Per Day: HX OF BRIEF SOCIAL USE WHILE IN , QUIT 45 YEARS AGO ; Do You Dip or Chew Tobacco: No ; Smoking End Date: 35 years ago ; Second Hand Exposure: No ; Tobacco Cessation Education Requested by Patient: No Hx Alcohol Use: Yes Alcohol type: hard liquor Hx Substance Use: No caffeine: Yes (1 cup in am) Review of Systems Review of Systems: All systems reviewed & are unremarkable except as noted in HPI & below Physical Exam Constitutional: WD/WN, vitals as above well nourished and + ill appearing; no acute distress Eyes: PERRL, conjunctivae normal, anicteric sclerae ENMT: external ear and nose normal, oropharynx normal Ears: no hearing impairment Neck: trachea midline Respiratory: no cough Auscultation: + crackles Cardiovascular: Rate/Rhythm: regular rate and regular rhythm Heart Sounds: normal S1 and normal S2 Extremities: + edema (trace b/l LE edema) and + AV fistula (rt RC AVF with thrill and minimum bruit.) Gastrointestinal (Abdomen): normal bowel sounds, soft, nontender, no hepatosplenomegaly Percussion/Palpation: abdomen nontender, no guarding and abdomen not rigid Musculoskeletal: Extremities: extremities normal to inspection Gait: normal gait Skin: no rashes, warm and dry Neurologic: moves all extremities and awake; no focal motor deficits and not confused Psychiatric: Orientation: oriented x 3 Affect: + flat affect Results & Data Vital Signs (Past 12 Hours) Vital Signs Temp Pulse Pulse Resp BP BP Pulse Ox 10/31/19 11:22 54 L 15 128/61 93 10/31/19 10:49 53 L 22 98 10/31/19 10:00 60 19 93 10/31/19 09:00 53 L 24 91 10/31/19 08:30 57 L 24 92 10/31/19 08:00 36.7 C 50 L 22 90 10/31/19 06:43 56 L 18 94 10/31/19 04:00 36.4 C L 52 L 16 125/46 L 95 10/31/19 00:47 36.6 C 52 L 16 131/70 96 10/31/19 00:19 36.6 C 52 L 16 131/70 96 PG Care Time/CCT Total # of Minutes Spent Total Time Spent with Patient: Total time spent is greater than 50% in coordination of care (as documented) at patient's floor/unit and/or counseling patient: Coding Level of Care Code 58629 Inpt Consult Level 5 Diagnoses ESRD (end stage renal disease) on dialysis N18.6; Z99.2 Anemia secondary to renal failure D63.1 Hyperparathyroidism E21.3 HTN (hypertension) I10 Hypertension type: unspecified Lung transplant status Z94.2 Diabetes mellitus, type II E11.9 (1) HTN (hypertension) Hypertension type: unspecified Qualified Code(s): I10 - Essential (primary) hypertension
--- NOTE | 2019-10-31 13:08 | XRay Report ---
XR chest 1V portable CLINICAL HISTORY: 78 years-old Male presenting with sob, lethargy, history of lung transplant. TECHNIQUE: Portable upright AP view of the chest was obtained. COMPARISON: 10/30/2019. FINDINGS: Cardiac silhouette enlarged. Extensive mid to basilar predominant dense opacities with underlying coa rsened lung markings. Opacities more extensive on the left. These have also increased from prior on t he left. A small right pleural effusion is also suspected, slightly increased in size from prior and potentially loculated along the right mid periphery. Focal severe radiolucency in the right apex is u nchanged from prior and correlates to bullous changes on CT. No convincing evidence of pneumothorax. Degenerative changes of the thoracic spine. Upper abdomen normal. IMPRESSION: 1. Increasing left lung infiltrates concerning for worsening pneumonia in the transplanted left lung . 2. Chronic right mid to basilar infiltrates compatible with chronic interstitial lung disease. Invol vement of pneumonia may also be present. 3. Suspected right pleural effusion. 4. Cardiomegaly. Some degree of volume overload or congestive change is difficult to exclude. ACT 112: Negative or not required by law. Electronically signed by: Momo Lenz M.D. 10/31/2019 1:06 PM
[2019-10-31] MEDS ORDERED: CONSULT PHARMACY STA (13:20)
--- NOTE | 2019-10-31 13:26 | Cardiology Consultation ---
Date of Consultation October 31, 2019 Assessment & Plan (1) Acute hypoxemic respiratory failure: (2) ESRD (end stage renal disease) on dialysis: (3) Elevated troponin: (4) Deep vein thrombosis, upper right extremity: (5) Lung transplant recipient: (6) Atrial fibrillation: (7) CHF (congestive heart failure): (8) CAD (coronary artery disease): Mr. London was once again presented with volume overload and hypoxic respiratory failure. I do not see any active cardiac component to this episode and agree for nephrology colleagues that hemodialysis should be started. He is a little bradycardic and his beta-cally will be held. If necessary glucagon may be given to reverse the beta-blockade effect to facilitate initiation of hemodialysis. No other medication changes were made at this time. History of Present Illness Reason for Consultation: Shortness of breath Requesting Physician: Dr. Simmons Attending Physician: Dex Beth MD History of Present Illness He was my pleasure to see Mr. London in consultation today October 31, 2019. He is a very pleasant 78-year-old gentleman who follows with myself as an outpatient. He presented to [facility] emergency department on 10/30/2019 with complaints of shortness of breath. The patient states that since his most recent hospitalization for volume overload his breathing is continued to deteriorate. Upon presentation is found to be hypoxic and a little bradycardic. He denies any chest pain, palpitations, lightheadedness, dizziness or syncope. He states he has been compliant with his medication regimen as an outpatient. He is currently awaiting dialysis to be performed for the first time today. Past medical history: 1. 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 Coronary artery disease status post PCI to the LAD on 2 separate occasions along with a PCI to the circumflex in the setting of a non ST segment elevation [place] 3. History of PFO status post closure 4. History of GI bleed while on triple therapy 5. Stage 4 chronic kidney disease status post fistula 6. History of CVAs 7. GERD 8. 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 Most recent EF of 55%. 10.Upper extremity DVTstatus post 3 months of warfarin anticoagulation 11. Chronic atrial fibrillation on chronic anticoagulation. Allergies Allergy/AdvReac Type Severity Reaction Status Date / Time levofloxacin Allergy Intermediate ANAPHYLAXIS Verified 10/30/19 23:01 oxycodone Allergy Intermediate ANAPHYLAXIS Verified 10/30/19 23:01 cat dander Allergy Unknown CHEST Verified 10/30/19 23:02 TIGHTNESS Home Medications Home Medications Medication Instructions Recorded Confirmed Type albuterol sulfate 2.5 mg CONTINUOUS NEBULIZATION BID 03/02/19 10/30/19 History ml clopidogrel 75 mg tablet 75 mg PO DAILY #30 tab 03/02/19 10/30/19 History doxazosin 4 mg tablet 8 mg PO HS tab 03/02/19 10/30/19 History fluoxetine 20 mg capsule 40 mg PO DAILY cap 03/02/19 10/30/19 History fluticasone 500 mcg-salmeterol 50 1 puffs INH Q12H 03/02/19 10/30/19 History mcg/dose blistr powdr for inhalation insulin lispro 100 unit/mL 0 - 140 sliding scale dose SUBCUT 03/02/19 10/30/19 History subcutaneous solution TID PRN ml magnesium chloride 71.5 mg 143 mg PO DAILY tab 03/02/19 10/30/19 History (magnesium chloride) tablet,delayed release montelukast 10 mg tablet 10 mg PO DAILY tab 03/02/19 10/30/19 History mycophenolate sodium 180 mg 180 mg PO BID tab 03/02/19 10/30/19 History tablet,delayed release pantoprazole 40 mg tablet,delayed 40 mg PO BID tab 03/02/19 10/30/19 History release rosuvastatin 40 mg tablet 40 mg PO HS #90 tab 03/02/19 10/30/19 History tacrolimus 0.5 mg capsule 0.5 mg PO BID cap 03/02/19 10/30/19 History acetaminophen [Tylenol Extra 500 mg PO Q6H PRN 04/21/19 10/30/19 History Strength] azithromycin [Zithromax] 250 mg PO 3XWK 04/21/19 10/30/19 History metoprolol succinate [Toprol XL] 100 mg PO DAILY 04/21/19 10/30/19 History omega-3 acid ethyl esters [Lovaza] 2 cap PO BID 04/21/19 10/30/19 History posaconazole [Noxafil] 300 mg PO DAILY 04/21/19 10/30/19 History prednisone 5 mg PO DAILY 04/21/19 10/30/19 History tobramycin 150 mg INHALATION Q12H 04/21/19 10/30/19 History cyclobenzaprine 5 mg tablet 5 mg PO TID PRN 07/04/19 10/30/19 History acyclovir 400 mg PO BID 09/27/19 10/30/19 History sulfamethoxazole-trimethoprim 1 tab PO 2XWK 09/27/19 10/30/19 History [Bactrim] amlodipine [Norvasc] 10 mg PO QAM 30 Days #60 tab 10/06/19 10/30/19 Rx darbepoetin nicholas in polysorbat 100 100 mcg SUBCUT WEEKLY #4 ml 10/23/19 10/30/19 Rx mcg/mL in polysorbate injection sodium bicarbonate 650 mg tablet 1,300 mg PO BID #60 tab 10/23/19 10/30/19 Rx calcitriol 0.25 mcg PO 3XWK 10/30/19 10/30/19 History furosemide [Lasix] 80 mg PO DAILY 10/30/19 10/30/19 History hydralazine 10 mg PO Q8H 10/30/19 10/30/19 History warfarin 2.5 mg PO QPM 10/30/19 10/30/19 History Patient History Medical History Arthritis (Chronic) Chronic a-fib (Chronic) Chronic anemia (Chronic) Chronic diarrhea PT HAS BEEN SEEN AND EVALUATED BY GI FOR C-DIFF (NEGATIVE). GI CONCERNED AND FEELS SCOPE IS NECESSARY CKD (chronic kidney disease) stage 5, GFR less than 15 ml/min (Chronic) Diabetes mellitus, type II (Chronic) GERD (gastroesophageal reflux disease) (Chronic) Glaucoma (Chronic) H/O: CVA (cerebrovascular accident) (Chronic) HLD (hyperlipidemia) (Chronic) HTN (hypertension) (Chronic) Hyperglycemia (Chronic) Hyperparathyroidism (Chronic) Idiopathic pulmonary fibrosis (Chronic) Mood disorder (Chronic) Myocardial infarction (Acute) Paroxysmal atrial fibrillation (Chronic) Renal lesion Squamous cell carcinoma of skin of scalp (Chronic) Thrombocytopenia (Chronic) Surgical History History of cardiac cath STENTS X2 MAY 2018 (SEE [facility] [place] [facility] ) Hx of heart artery stent (Chronic) S/P MITCHELL to LAD and circumflex after NSTEMI in 05/2018 Lung transplant status (Chronic) S/P patent foramen ovale closure (Resolved) Family History Father , in his seventies of cancer No problems noted. Mother , age 88 of CHF No problems noted. Daughter Age: 46 No problems noted. Son Age: 45 No problems noted. Other No significant family history Social History Preferred Language: Slovak Communication Ability: Effective Patient Safety Officer Required: No Beliefs That Will Affect Care: None marital status: Current Living Situation: Spouse current occupational status: retired Other Information That Helps Us Care for You: No Feels Safe at Home: Yes Safety Concerns: Feels Safe At This Time Smoking Status: Former smoker Tobacco Type: cigarettes ; Cigarettes Per Day: HX OF BRIEF SOCIAL USE WHILE IN , QUIT 45 YEARS AGO ; Do You Dip or Chew Tobacco: No ; Smoking End Date: 35 years ago ; Second Hand Exposure: No ; Tobacco Cessation Education Requested by Patient: No Hx Alcohol Use: Yes Alcohol type: hard liquor Hx Substance Use: No caffeine: Yes (1 cup in am) Review of Systems Review of Systems: All systems reviewed & are unremarkable except as noted in HPI & below Physical Exam Physical Exam: General: Awake, alert and oriented x 3. No acute distress. HEENT: Normocephalic, atraumatic. Pupils equal, round and reactive to light and accommodation. Extraocular muscles are intact. Anicteric sclera. Moist mucous membranes. Neck: No JVD. No bruit. Cardiovascular: Regular. Positive S-4. Normal S-1 and S-2. No S-3. No murmurs or rubs. Pulmonary: Clear to auscultation B/L. No rales, rhonchi or wheezing Abdomen: Bowel sounds x 4, soft. No rebound, guarding or tenderness. No organomegaly. Extremities: No clubbing, cyanosis or edema. +2 pedal pulses bilaterally. Skin: Warm and dry. Results & Data ([facility]) Vital Signs (Past 12 Hours) Vital Signs Temp Pulse Pulse Resp BP BP Pulse Ox 10/31/19 11:22 54 L 15 128/61 93 10/31/19 10:49 53 L 22 98 10/31/19 10:00 60 19 93 10/31/19 09:00 53 L 24 91 10/31/19 08:30 57 L 24 92 10/31/19 08:00 36.7 C 50 L 22 90 10/31/19 06:43 56 L 18 94 10/31/19 04:00 36.4 C L 52 L 16 125/46 L 95 Laboratory Results Laboratory Results - last 24 hr 10/30/19 10/30/19 10/30/19 18:46 18:46 18:46 WBC 10.87 H RBC 2.41 L Hgb 8.5 L Hct 26.1 L MCV 108.3 H MCH 35.3 H MCHC 32.6 RDW Std Deviation 62.7 H RDW Coeff of Ros 15.9 H Plt Count 136 MPV 12.6 H Immature Gran % (Auto) 0.3 Neut % (Auto) 88.9 Lymph % (Auto) 5.4 [place] % (Auto) 4.0 Eos % (Auto) 1.4 Baso % (Auto) 0.0 Immature Gran # (Auto) 0.03 H Neut # (Auto) 9.66 H Lymph # (Auto) 0.59 L [place] # (Auto) 0.44 Eos # (Auto) 0.15 Baso # (Auto) 0.00 Platelet Estimate Decreased L Macrocytosis Present Tear Drop Cells 1+ PT 32.3 H INR 3.3 H APTT 45.5 H* PTT Ratio 1.6 ABG pH ABG pCO2 ABG pO2 ABG HCO3 ABG O2 Saturation ABG Base Excess Danial Test Barometric Pressure Oxygen Given Sodium 140 Potassium 4.1 Chloride 108 H Carbon Dioxide 21 Anion Gap 11.0 BUN 86 H Creatinine 6.72 H* Est Cr Clr Drug Dosing 10.4 Est GFR ( Amer) 8.4 Est GFR (Non-Af Amer) 7.2 BUN/Creatinine Ratio 12.9 Glucose 143 H POC Glucose Calcium 8.5 Magnesium Total Bilirubin 0.4 AST 11 L ALT 19 Alkaline Phosphatase 58 Troponin I 0.051 H* Total Protein 6.7 Albumin 3.3 L Globulin 3.4 Albumin/Globulin Ratio 1.0 TSH Specimen Hemolysis Nasal Screen MRSA (PCR) COVID-19 PCR Influenza Type A (PCR) Influenza Type B (PCR) Blood Type Antibody Screen 10/30/19 10/30/19 10/30/19 21:25 21:25 21:37 WBC RBC Hgb Hct MCV MCH MCHC RDW Std Deviation RDW Coeff of Ros Plt Count MPV Immature Gran % (Auto) Neut % (Auto) Lymph % (Auto) [place] % (Auto) Eos % (Auto) Baso % (Auto) Immature Gran # (Auto) Neut # (Auto) Lymph # (Auto) [place] # (Auto) Eos # (Auto) Baso # (Auto) Platelet Estimate Macrocytosis Tear Drop Cells PT INR APTT PTT Ratio ABG pH 7.50 H ABG pCO2 22 L ABG pO2 157 H ABG HCO3 17 L ABG O2 Saturation 99.3 H ABG Base Excess -5.2 Danial Test POS Barometric Pressure 733.1 Oxygen Given 3L Sodium Potassium Chloride Carbon Dioxide Anion Gap BUN Creatinine Est Cr Clr Drug Dosing Est GFR ( Amer) Est GFR (Non-Af Amer) BUN/Creatinine Ratio Glucose POC Glucose Calcium Magnesium Total Bilirubin AST ALT Alkaline Phosphatase Troponin I Total Protein Albumin Globulin Albumin/Globulin Ratio TSH Specimen Hemolysis Nasal Screen MRSA (PCR) COVID-19 PCR NEGATIVE Influenza Type A (PCR) Neg for Influ A Influenza Type B (PCR) Neg for Influ B Blood Type Antibody Screen 10/30/19 10/31/19 10/31/19 21:40 01:20 01:55 WBC RBC Hgb Hct MCV MCH MCHC RDW Std Deviation RDW Coeff of Ros Plt Count MPV Immature Gran % (Auto) Neut % (Auto) Lymph % (Auto) [place] % (Auto) Eos % (Auto) Baso % (Auto) Immature Gran # (Auto) Neut # (Auto) Lymph # (Auto) [place] # (Auto) Eos # (Auto) Baso # (Auto) Platelet Estimate Macrocytosis Tear Drop Cells PT INR APTT PTT Ratio ABG pH ABG pCO2 ABG pO2 ABG HCO3 ABG O2 Saturation ABG Base Excess Danial Test Barometric Pressure Oxygen Given Sodium Potassium Chloride Carbon Dioxide Anion Gap BUN Creatinine Est Cr Clr Drug Dosing Est GFR ( Amer) Est GFR (Non-Af Amer) BUN/Creatinine Ratio Glucose POC Glucose 271 H Calcium Magnesium 2.0 Total Bilirubin AST ALT Alkaline Phosphatase Troponin I 0.050 H* Total Protein Albumin Globulin Albumin/Globulin Ratio TSH 1.360 Specimen Hemolysis Nasal Screen MRSA (PCR) Negative COVID-19 PCR Influenza Type A (PCR) Influenza Type B (PCR) Blood Type Antibody Screen 10/31/19 10/31/19 10/31/19 04:35 04:35 04:35 WBC 7.18 RBC 2.32 L Hgb 8.3 L Hct 24.9 L MCV 107.3 H MCH 35.8 H MCHC 33.3 RDW Std Deviation 62.8 H RDW Coeff of Ros 16.2 H Plt Count 131 MPV 12.8 H Immature Gran % (Auto) 0.4 Neut % (Auto) 98.0 Lymph % (Auto) 1.3 [place] % (Auto) 0.3 Eos % (Auto) 0.0 Baso % (Auto) 0.0 Immature Gran # (Auto) 0.03 H Neut # (Auto) 7.04 H Lymph # (Auto) 0.09 L [place] # (Auto) 0.02 L Eos # (Auto) 0.00 Baso # (Auto) 0.00 Platelet Estimate Macrocytosis Tear Drop Cells PT 35.3 H INR 3.6 H APTT 48.9 H* PTT Ratio 1.8 ABG pH ABG pCO2 ABG pO2 ABG HCO3 ABG O2 Saturation ABG Base Excess Danial Test Barometric Pressure Oxygen Given Sodium Potassium Chloride Carbon Dioxide Anion Gap BUN Creatinine Est Cr Clr Drug Dosing Est GFR ( Amer) Est GFR (Non-Af Amer) BUN/Creatinine Ratio Glucose POC Glucose Calcium Magnesium Total Bilirubin AST ALT Alkaline Phosphatase Troponin I Total Protein Albumin Globulin Albumin/Globulin Ratio TSH Specimen Hemolysis Nasal Screen MRSA (PCR) COVID-19 PCR Influenza Type A (PCR) Influenza Type B (PCR) Blood Type O Positive Antibody Screen NEGATIVE 10/31/19 10/31/19 10/31/19 04:35 07:22 11:12 WBC RBC Hgb Hct MCV MCH MCHC RDW Std Deviation RDW Coeff of Ros Plt Count MPV Immature Gran % (Auto) Neut % (Auto) Lymph % (Auto) [place] % (Auto) Eos % (Auto) Baso % (Auto) Immature Gran # (Auto) Neut # (Auto) Lymph # (Auto) [place] # (Auto) Eos # (Auto) Baso # (Auto) Platelet Estimate Macrocytosis Tear Drop Cells PT INR APTT PTT Ratio ABG pH ABG pCO2 ABG pO2 ABG HCO3 ABG O2 Saturation ABG Base Excess Danial Test Barometric Pressure Oxygen Given Sodium 139 Potassium 4.4 Chloride 107 Carbon Dioxide 20 L Anion Gap 12.0 H BUN 86 H Creatinine 6.78 H* Est Cr Clr Drug Dosing 4.7 Est GFR ( Amer) 8.3 Est GFR (Non-Af Amer) 7.1 BUN/Creatinine Ratio 12.7 Glucose 263 H POC Glucose 278 H 220 H Calcium 8.4 L Magnesium Total Bilirubin AST ALT Alkaline Phosphatase Troponin I Total Protein Albumin Globulin Albumin/Globulin Ratio TSH Specimen Hemolysis Nasal Screen MRSA (PCR) COVID-19 PCR Influenza Type A (PCR) Influenza Type B (PCR) Blood Type Antibody Screen 10/31/19 13:06 WBC RBC Hgb Hct MCV MCH MCHC RDW Std Deviation RDW Coeff of Ros Plt Count MPV Immature Gran % (Auto) Neut % (Auto) Lymph % (Auto) [place] % (Auto) Eos % (Auto) Baso % (Auto) Immature Gran # (Auto) Neut # (Auto) Lymph # (Auto) [place] # (Auto) Eos # (Auto) Baso # (Auto) Platelet Estimate Macrocytosis Tear Drop Cells PT INR APTT PTT Ratio ABG pH Cancelled ABG pCO2 Cancelled ABG pO2 Cancelled ABG HCO3 Cancelled ABG O2 Saturation Cancelled ABG Base Excess Cancelled Danial Test Cancelled Barometric Pressure Cancelled Oxygen Given Cancelled Sodium Potassium Chloride Carbon Dioxide Anion Gap BUN Creatinine Est Cr Clr Drug Dosing Est GFR ( Amer) Est GFR (Non-Af Amer) BUN/Creatinine Ratio Glucose POC Glucose Calcium Magnesium Total Bilirubin AST ALT Alkaline Phosphatase Troponin I Total Protein Albumin Globulin Albumin/Globulin Ratio TSH Specimen Hemolysis Nasal Screen MRSA (PCR) COVID-19 PCR Influenza Type A (PCR) Influenza Type B (PCR) Blood Type Antibody Screen Medications Administered Current Inpatient Medications Acetaminophen (Tylenol) 650 mg PO Q4H PRN PRN Reason: Pain or Fever Stop: 11/30/19 00:18 Acyclovir (Zovirax) 400 mg PO BID MARLYS Stop: 11/30/19 08:59 Last Admin: 10/31/19 08:15 Dose: 400 mg Documented by: Albuterol (Duoneb) 3 ml NEB QIDR MARLYS Stop: 11/30/19 06:59 Last Admin: 10/31/19 10:49 Dose: 3 ml Documented by: Amlodipine Besylate (Norvasc) 10 mg PO QAM MARLYS Stop: 11/30/19 08:59 Last Admin: 10/31/19 08:09 Dose: 10 mg Documented by: Atropine Sulfate (Atropine Sulfate) 0.5 mg IV Q3M PRN PRN Reason: .SYMPTOMATIC BRADYCARDIA Stop: 11/30/19 00:48 Cyclobenzaprine HCl (Flexeril) 5 mg PO TID PRN PRN Reason: Muscle Spasm Stop: 11/30/19 00:18 Dextrose (Dextrose 50%) 25 - 50 ml IV UD PRN; Protocol PRN Reason: Hypoglycemia Protocol Stop: 11/30/19 00:18 Doxazosin Mesylate (Cardura) 8 mg PO HS MARLYS Stop: 11/30/19 20:59 Doxycycline Hyclate (Vibramycin) 100 mg PO BID MARLYS Stop: 11/30/19 08:59 Last Admin: 10/31/19 08:15 Dose: 100 mg Documented by: Fluoxetine HCl (Prozac) 40 mg PO DAILY MARLYS Stop: 11/30/19 08:59 Last Admin: 10/31/19 08:13 Dose: 40 mg Documented by: Fluticasone/Vilanterol (Breo Ellipta 100/25 Mcg Inh) 1 puffs INH DAILY MARLYS Stop: 11/30/19 08:59 Last Admin: 10/31/19 08:10 Dose: 1 puffs Documented by: Glucagon (Glucagen) 1 mg SQ UD PRN; Protocol PRN Reason: Hypoglycemia Protocol Stop: 11/30/19 00:18 Glucose (Dex4 Glucose) 4 - 8 tabs PO UD PRN; Protocol PRN Reason: Hypoglycemia Protocol Stop: 11/30/19 00:18 Glucose (Glucose 40%) 15 - 30 gm PO UD PRN; Protocol PRN Reason: Hypoglycemia Protocol Stop: 11/30/19 00:18 Guaifenesin (Mucinex) 600 mg PO Q12 MARLYS Stop: 11/30/19 00:18 Last Admin: 10/31/19 08:12 Dose: 600 mg Documented by: Hydralazine HCl (Apresoline) 10 mg PO Q8 MARLYS Stop: 11/30/19 00:18 Last Admin: 10/31/19 06:03 Dose: 10 mg Documented by: Promethazine HCl 12.5 mg/ (Sodium Chloride) 50.5 mls @ 202 mls/hr IV Q6H PRN PRN Reason: Nausea And Vomiting Stop: 11/30/19 00:18 Last Admin: 10/31/19 12:16 Dose: 202 mls/hr Documented by: Tobramycin Sulfate 150 mg/ (Syringe) 3.75 mls @ 0.033 mls/min INH Q12R MARLYS Stop: 11/30/19 06:59 Last Admin: 10/31/19 06:34 Dose: 0.033 mls/min Documented by: Insulin Aspart (Novolog Flexpen) 0 units SC ACHS MARLYS Stop: 11/30/19 00:18 Last Admin: 10/31/19 11:19 Dose: 2 units Documented by: Insulin Glargine (Lantus Solostar Pen) 5 units SC DAILY MARLYS Stop: 11/30/19 08:59 Last Admin: 10/31/19 08:11 Dose: 5 units Documented by: Miscellaneous (Order Awaiting Action) 1 ea N/A QS MARLYS Stop: 11/30/19 07:59 Last Admin: 10/31/19 11:19 Dose: Not Given Documented by: Miscellaneous (Carbohydrates For Hypoglycemia) 15 - 30 gm PO UD PRN PRN Reason: Hypoglycemia Protocol Stop: 11/30/19 00:18 Miscellaneous Information (Pharmacy Consult) 1 ea N/A NOW STA Stop: 10/31/19 13:21 Montelukast Sodium (Singulair) 10 mg PO DAILY MARLYS Stop: 11/30/19 08:59 Last Admin: 10/31/19 08:12 Dose: 10 mg Documented by: Mycophenolate Sodium (Myfortic) 180 mg PO BID MARLYS Stop: 11/30/19 08:59 Last Admin: 10/31/19 08:09 Dose: 180 mg Documented by: Nitroglycerin (Nitrostat) 0.4 mg UD PRN PRN Reason: Chest Pain Stop: 11/30/19 00:18 Pantoprazole Sodium (Protonix) 40 mg PO BID MARLYS Stop: 11/30/19 08:59 Last Admin: 10/31/19 08:12 Dose: 40 mg Documented by: Prednisone (Prednisone) 5 mg PO DAILY MARLYS Stop: 11/30/19 08:59 Last Admin: 10/31/19 08:11 Dose: 5 mg Documented by: Rosuvastatin Calcium (Crestor) 40 mg PO HS MARLYS Stop: 11/30/19 20:59 Sodium Bicarbonate (Sodium Bicarbonate) 1,300 mg PO BID MARLYS Stop: 11/30/19 08:59 Last Admin: 10/31/19 08:13 Dose: 1,300 mg Documented by: Tacrolimus (Prograf) 0.5 mg PO BID [facility] Stop: 11/30/19 08:59 Last Admin: 10/31/19 08:12 Dose: 0.5 mg Documented by: Trimethoprim/Sulfamethoxazole (Septra 400/80mg Tab) 1 tab PO MoTh@0900 [facility] Stop: 11/30/19 00:18 Last Admin: 10/31/19 02:08 Dose: 1 tab Documented by: (1) Atrial fibrillation Atrial fibrillation type: paroxysmal Qualified Code(s): I48.0 - Paroxysmal atrial fibrillation (2) CHF (congestive heart failure) Heart failure chronicity: unspecified Heart failure type: unspecified Qualified Code(s): I50.9 - Heart failure, unspecified (3) CAD (coronary artery disease) Coronary Disease-Associated Artery/Lesion type: [place] artery [place] vs. transplanted heart: [place] heart Associated angina: without angina Qualified Code(s): I25.10 - Atherosclerotic heart disease of [place] coronary artery without angina pectoris
[2019-10-31] MEDS ORDERED: FUROSEMIDE 100 MG in SYRINGE 0 ML IV ONE (13:29)
[2019-10-31] MEDS ORDERED: FUROSEMIDE 10 MG/ML 10 ML VIAL IV ONE (13:30)
--- NOTE | 2019-10-31 13:31 | Critical Care Consultation ---
Date of Consultation October 31, 2019 Assessment & Plan (1) Acute hypoxemic respiratory failure: 78-year-old male with past medical history of unilateral left- sided lung transplant on immunosuppressive medication along with antiviral and antibiotics, systolic CHF ejection fraction 35%, dyslipidemia, hypertension, COPD was admitted to hospital because of worsening shortness of breath and hypoxia found in the ED. ICU was consulted for hypoxic respiratory failure as patient was requiring 15 L of nasal cannula still saturating in the high 80s. EKG 10/30/2019: Poor quality. A. fib with bradycardia, left axis deviation, no ST-T wave changes appreciated. -- Acute Hypoxic respiratory failure Rule out pneumonia Atypical pulmonary edema can present this way especially in a patient who had lung transplant on the left with history of systolic CHF and end-stage renal disease We will give the patient broad-spectrum antibiotic with atypical coverage Follow-up septic work-up, influenza negative, Covid-19 PCR negative, MRSA negative ESR: , CRP: 2.22 , Procalcitonin: 0.08 Maintain SPO2 between 90 to 92% BiPAP nightly and as needed shortness of breath --CKD now end-stage renal disease Patient to be started on hemodialysis today Patient is on chronic bicarb Nephrology on board --Systolic CHF -- HAGMA Delta-delta: Less than 1 Gap plus non-gap, gap likely from elevated BUN, could be from CKD Monitor --Elevated troponin Likely secondary to type II MT EKG shows no ST-T wave changes Monitor Cardiology on board --Bradycardia with prolonged QTC Could be from the use of beta-cally Will hold beta-blockers for the time being If the patient gets symptomatic we will give him glucagon Avoid QT prolonging medication. 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 Patient is on chronic immunosuppressive therapy with chronic antibiotic along with chronic prednisone 5 mg Mycophenolate and tacrolimus along with acyclovir, azithromycin, Bactrim and tobramycin inhaled Would continue it for the time being Dosing of the immunosuppressive medication as well as antibiotic needs to be adjusted as the patient has no incisional disease Transplant doctor at [facility] has been restarted by the hospitalist will follow recommendation --Systolic CHF Ejection fraction 30-35% on echo done 09/28/2019 Plan as above --COPD Not in acute exacerbation Continue with inhaled bronchodilators --A. fib chronic On chronic warfarin at home Keep INR between 2-3 --Hypertension with dyslipidemia Continue with blood pressure medications Continue with statin --Prophylaxis GI: Protonix DVT: Warfarin Diet: Cardiorenal IV: Peripheral, right arm AV fistula Plan: The overall picture looks like pneumonia but patient has a complicated history of unilateral lung transplant and systolic CHF along with CKD, volume overload can present this way as well. We will give broad-spectrum antibiotics vancomycin post dialysis, Zosyn, doxycycline for the time being till we have septic work-up back. With the patient on BiPAP continuously for the time being. Will give 100 mg of Lasix stat If the patient does not improve with BiPAP will intubate the patient. Patient was made aware about this plan and he agrees with it. Beta-cally on hold given patient's bradycardia. I have personally spent 63 minutes of critical care time in the direct management of this patient. This is a life/limb threatening event. This includes time spent evaluating patient, direct bedside care, chart review, placing orders, interpretation of diagnostic studies, discussion with consultants, patient, and family members, as well as other required patient management activities. This time is exclusive of all separately billable procedures, and teaching time and separate from and in addition to any other critical care service time. Please note the above document was generated using voice recognition software. It may contain grammatical, syntax or spelling errors. (2) ESRD (end stage renal disease) on dialysis: (3) Lung transplant recipient: (4) CHF (congestive heart failure): (5) Chronic a-fib: History of Present Illness Attending Physician: Dex Beth MD History of Present Illness 78-year-old male with past medical history of systolic CHF ejection fraction 30-35%, coronary artery disease status post stent, A. fib on warfarin, CKD, chronic respiratory failure secondary to IPF status post unilateral lung transplantation on immunosuppressive medication and prophylactic antibiotic was admitted to hospital because of shortness of breath progressively getting worse. O2 saturation at home was found to be in the 80s. ICU was consulted as patient's oxygen demand was gradually increasing he went up to 15 L oxygen mask and was saturating in the high 80s. At the time of examination patient respiratory rate was high 20s low 30s. He was complaining of shortness of breath and chills. Denies any chest pain, no dizziness, no nausea or vomiting. No documented diarrhea. Patient does make urine and denies any dysuria. No headache. Allergies Allergy/AdvReac Type Severity Reaction Status Date / Time levofloxacin Allergy Intermediate ANAPHYLAXIS Verified 10/30/19 23:01 oxycodone Allergy Intermediate ANAPHYLAXIS Verified 10/30/19 23:01 cat dander Allergy Unknown CHEST Verified 10/30/19 23:02 TIGHTNESS Home Medications Home Medications Medication Instructions Recorded Confirmed Type albuterol sulfate 2.5 mg CONTINUOUS NEBULIZATION BID 03/02/19 10/30/19 History ml clopidogrel 75 mg tablet 75 mg PO DAILY #30 tab 03/02/19 10/30/19 History doxazosin 4 mg tablet 8 mg PO HS tab 03/02/19 10/30/19 History fluoxetine 20 mg capsule 40 mg PO DAILY cap 03/02/19 10/30/19 History fluticasone 500 mcg-salmeterol 50 1 puffs INH Q12H 03/02/19 10/30/19 History mcg/dose blistr powdr for inhalation insulin lispro 100 unit/mL 0 - 140 sliding scale dose SUBCUT 03/02/19 10/30/19 History subcutaneous solution TID PRN ml magnesium chloride 71.5 mg 143 mg PO DAILY tab 03/02/19 10/30/19 History (magnesium chloride) tablet,delayed release montelukast 10 mg tablet 10 mg PO DAILY tab 03/02/19 10/30/19 History mycophenolate sodium 180 mg 180 mg PO BID tab 03/02/19 10/30/19 History tablet,delayed release pantoprazole 40 mg tablet,delayed 40 mg PO BID tab 03/02/19 10/30/19 History release rosuvastatin 40 mg tablet 40 mg PO HS #90 tab 03/02/19 10/30/19 History tacrolimus 0.5 mg capsule 0.5 mg PO BID cap 03/02/19 10/30/19 History acetaminophen [Tylenol Extra 500 mg PO Q6H PRN 04/21/19 10/30/19 History Strength] azithromycin [Zithromax] 250 mg PO 3XWK 04/21/19 10/30/19 History metoprolol succinate [Toprol XL] 100 mg PO DAILY 04/21/19 10/30/19 History omega-3 acid ethyl esters [Lovaza] 2 cap PO BID 04/21/19 10/30/19 History posaconazole [Noxafil] 300 mg PO DAILY 04/21/19 10/30/19 History prednisone 5 mg PO DAILY 04/21/19 10/30/19 History tobramycin 150 mg INHALATION Q12H 04/21/19 10/30/19 History cyclobenzaprine 5 mg tablet 5 mg PO TID PRN 07/04/19 10/30/19 History acyclovir 400 mg PO BID 09/27/19 10/30/19 History sulfamethoxazole-trimethoprim 1 tab PO 2XWK 09/27/19 10/30/19 History [Bactrim] amlodipine [Norvasc] 10 mg PO QAM 30 Days #60 tab 10/06/19 10/30/19 Rx darbepoetin nicholas in polysorbat 100 100 mcg SUBCUT WEEKLY #4 ml 10/23/19 10/30/19 Rx mcg/mL in polysorbate injection sodium bicarbonate 650 mg tablet 1,300 mg PO BID #60 tab 10/23/19 10/30/19 Rx calcitriol 0.25 mcg PO 3XWK 10/30/19 10/30/19 History furosemide [Lasix] 80 mg PO DAILY 10/30/19 10/30/19 History hydralazine 10 mg PO Q8H 10/30/19 10/30/19 History warfarin 2.5 mg PO QPM 10/30/19 10/30/19 History Patient History Medical History Arthritis (Chronic) Chronic a-fib (Chronic) Chronic anemia (Chronic) Chronic diarrhea PT HAS BEEN SEEN AND EVALUATED BY GI FOR C-DIFF (NEGATIVE). GI CONCERNED AND FEELS SCOPE IS NECESSARY CKD (chronic kidney disease) stage 5, GFR less than 15 ml/min (Chronic) Diabetes mellitus, type II (Chronic) GERD (gastroesophageal reflux disease) (Chronic) Glaucoma (Chronic) H/O: CVA (cerebrovascular accident) (Chronic) HLD (hyperlipidemia) (Chronic) HTN (hypertension) (Chronic) Hyperglycemia (Chronic) Hyperparathyroidism (Chronic) Idiopathic pulmonary fibrosis (Chronic) Mood disorder (Chronic) Myocardial infarction (Acute) Paroxysmal atrial fibrillation (Chronic) Renal lesion Squamous cell carcinoma of skin of scalp (Chronic) Thrombocytopenia (Chronic) Surgical History History of cardiac cath STENTS X2 MAY 2018 (SEE [facility]ORD ) Hx of heart artery stent (Chronic) S/P MITCHELL to LAD and circumflex after NSTEMI in 05/2018 Lung transplant status (Chronic) S/P patent foramen ovale closure (Resolved) Family History Father , in his seventies of cancer No problems noted. Mother , age 88 of CHF No problems noted. Daughter Age: 46 No problems noted. Son Age: 45 No problems noted. Other No significant family history Social History Preferred Language: Hebrew Communication Ability: Effective Hotel Room Attendant Required: No Beliefs That Will Affect Care: None marital status: Current Living Situation: Spouse current occupational status: retired Other Information That Helps Us Care for You: No Feels Safe at Home: Yes Safety Concerns: Feels Safe At This Time Smoking Status: Former smoker Tobacco Type: cigarettes ; Cigarettes Per Day: HX OF BRIEF SOCIAL USE WHILE IN , QUIT 45 YEARS AGO ; Do You Dip or Chew Tobacco: No ; Smoking End Date: 35 years ago ; Second Hand Exposure: No ; Tobacco Cessation Education Requested by Patient: No Hx Alcohol Use: Yes Alcohol type: hard liquor Hx Substance Use: No caffeine: Yes (1 cup in am) Review of Systems Review of Systems: All systems reviewed & are unremarkable except as noted in HPI & below Physical Exam Physical Exam: Constitutional: Respiratory distress HEENT: EOMI, PERRLA, right eye prosthetic Respiratory system: Decreased air entry bilaterally, positive crackles bilateral lower lobes, no wheeze, no rhonchi CVS: S1-S2 positive, no murmurs or gallops, positive 2 out of 6 holo-systolic murmur best appreciated at the aorta Abdomen: Soft, nontender, nondistended, positive bowel sounds x4 Extremities: +2 pulses bilaterally radialis/ dorsalis pedis, no cyanosis, no edema, no clubbing, right arm AV fistula Neuro: Awake alert oriented x3 Psych: Normal mood and affect G/U: No Mane Skin: no rashes, warm and dry Lymphatic: no cervical or axillary lymphadenopathy Results & Data Results & Data ([facility]) Vital Signs (Past 12 Hours) Vital Signs Temp Pulse Pulse Resp BP BP Pulse Ox 10/31/19 11:22 54 L 15 128/61 93 10/31/19 10:49 53 L 22 98 10/31/19 10:00 60 19 93 10/31/19 09:00 53 L 24 91 10/31/19 08:30 57 L 24 92 10/31/19 08:00 36.7 C 50 L 22 90 10/31/19 06:43 56 L 18 94 10/31/19 04:00 36.4 C L 52 L 16 125/46 L 95 10/31/19 04:35 10/31/19 04:35 Chest x-ray 10/31/2019 personally reviewed: There is worsening of the haziness on the left side of the lung, right side chronic interstitial changes are appreciated. The chest x-ray was compared to the one done yesterday. CT chest without contrast 09/27/2019 also personally reviewed: Patient has bilateral pleural effusion. Right lower lobe honeycombing appreciated, right upper lobe bullae mediastinal shift to the right. Coding Level of Care Code Critical Care 1st 30-74 mins Diagnoses Acute hypoxemic respiratory failure J96.01 ESRD (end stage renal disease) on dialysis N18.6; Z99.2 Lung transplant recipient Z94.2 CHF (congestive heart failure) I50.9 Heart failure chronicity: unspecified Heart failure type: unspecified Chronic a-fib I48.2 Time Spent (min) 63 (1) CHF (congestive heart failure) Heart failure chronicity: unspecified Heart failure type: unspecified Qualified Code(s): I50.9 - Heart failure, unspecified
[2019-10-31] MEDS ORDERED: PIPERACILL/TAZOBAC CONSULT ACTIVE PRN (14:13)
[2019-10-31] MEDS ORDERED: PIPERACILLIN/TAZOBACTAM 3.375 GM in DEXTROSE 5% 100 ML IV ONE (14:15)
[2019-10-31 15:02] LABS: Hepatitis B Surface Antigen Neg (Neg)
[2019-10-31] MEDS ORDERED: VANCOMYCIN CONSULT ACTIVE PRN (15:12)
[2019-10-31 15:30] LABS: Hepatitis C IgG 13Yrs+Old_Rflx Neg (Neg)
[2019-10-31] MEDS ORDERED: EPOETIN ALFA 20,000 UNITS/ML VIAL IV ONE (16:30)
[2019-10-31 17:27] LABS: Hepatitis B Surface Ab Quant < 3.10 mIU/mL (>or=10mIU/mL Immune); Hepatitis B Surface Antibody Non-Immune
[2019-10-31] MEDS ORDERED: VANCOMYCIN HCL 1,750 MG in SODIUM CHLORIDE 0.9% 500 ML IV ONE (18:00)
--- NOTE | 2019-10-31 18:27 | Hospitalist Progress Note ---
Date of Service October 31, 2019 Assessment & Plan (1) Acute hypoxemic respiratory failure: Acute respiratory failure with hypoxia Likely pulmonary edema Rule out pneumonia Volume overload in setting of Acute Systolic CHF, ESRD, IPF -CXR:Increasing left lung infiltrates concerning for worsening pneumonia in the transplanted left lung. Chronic right mid to basilar infiltrates compatible with chronic interstitial lung disease. Involvement of pneumonia may also be present. 3. Suspected right pleural effusion. Cardiomegaly. Some degree of volume overload or congestive change is difficult to exclude. -Code screen, influenza screen negative -Received IV Lasix -Continue empiric antibiotics -Follow-up blood cultures -Volume status to be managed with dialysis -Continue BiPAP at bedtime, PRN -Continue supplemental oxygen as needed -Low threshold for intubation -Appreciate b2b sales professional, nephrology, cardiology Input H/O Afib Bradycardia ? SSS Prolonged QTC Beta-cally on hold Monitor on telemetry Cardiology Following Avoid QTC prolonging meds Supratherapeutic INR H/O DVT No bleeding issues currently Monitor INR Continue to hold Coumadin ESRD H/O OLIVIER, Tobramycin, HTN, DM H/O diabetic retinopathy Will be initiated on hemodialysis today Appreciate nephrology input Avoid nephrotoxic agents as able Monitor electrolytes, renal function Elevated Troponin In setting of end-stage renal disease, CHF Likely demand ischemia Denies any chest pain EKG showed no signs of acute ischemia H/O CAD S/P Stent Resume plavix Hold BB due to bradycardia Continue Statin 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 Mari Zamarripahardikmartha on 10/31/19 Contact NO:[phone] Plan to adjust medications (dosing) as being initiated on dialysis [facility] coordinator plans to discuss with Dr.Silpa Rodriguez and will provide recommendations on 11/01/19 DM II: Hb A1C: 5.24 September 2019 Continue Insulin therapy Monitor BGs H/O Hyperparathyroidism: continue calcitriol DVT Px: Resume Coumadin when INR in therapeutic range Code Status Full code Disposition Monitor in ICU Admission and Anticipated Discharge Date Admission Date: October 30, 2019 Subjective Patient is seen and examined at bedside Complains of dizziness, shortness of breath Reports dry cough Denies any chest pain, nausea, abdominal pain Plan for dialysis today Discussed with b2b sales professional, [facility] transplant center today. Offers no other complaints Review of Systems Review of Systems: All systems reviewed & are unremarkable except as noted in HPI & below Physical Exam Physical Exam: Physical Exam: Vitals signs as noted above General Appearance:Chronic ill appearing, mild respiratory distress Head: normocephalic, Atraumatic Eyes: normal inspection, EOMI Neck: supple, Trachea midline Respiratory/Chest: Decreased breath sounds, B/L crackles Cardiovascular: S1, S2, Systolic murmur, Bradycardia Abdomen/GI:Soft, Non tender, Bowel sounds present Extremities/Musculoskelatal:normal inspection, no edema Neurologic/Psych:AAOX3, grossly no focal neurological deficits Skin: normal color, warm Results & Data Results & Data ([facility]) Vital Signs (Past 12 Hours) Vital Signs Temp Pulse Pulse Resp BP Pulse Ox 10/31/19 16:00 55 L 10/31/19 15:25 70 22 92 10/31/19 13:33 80 26 H 96 10/31/19 11:22 54 L 15 128/61 93 10/31/19 10:49 53 L 22 98 10/31/19 10:00 60 19 93 10/31/19 09:00 53 L 24 91 10/31/19 08:30 57 L 24 92 10/31/19 08:00 36.7 C 50 L 22 90 10/31/19 06:43 56 L 18 94 Laboratory Results Short CBC 10/30/19 10/31/19 Range/Units 18:46 04:35 WBC 10.87 H 7.18 (4.8-10.8) K/uL Hgb 8.5 L 8.3 L (14.0-18.0) g/dL Hct 26.1 L 24.9 L (42-52) % Plt Count 136 131 (130-400) K/uL BMP 10/30/19 10/31/19 18:46 04:35 Sodium 140 139 Potassium 4.1 4.4 Chloride 108 H 107 Carbon Dioxide 21 20 L BUN 86 H 86 H Creatinine 6.72 H* 6.78 H* Glucose 143 H 263 H Calcium 8.5 8.4 L Cardiac Enzymes 10/30/19 10/30/19 Range/Units 18:46 21:40 Troponin I 0.051 H* 0.050 H* (0-0.045) ng/ml Liver Function 05/11/20 Range/Units 18:46 Total Bilirubin 0.4 (0.2-1) mg/dl AST 11 L (15-37) U/L ALT 19 (12-78) U/L Alkaline Phosphatase 58 (45-117) U/L Albumin 3.3 L (3.4-5.0) gm/dl
--- NOTE | 2019-10-31 19:03 | XRay Report ---
XR chest 1V portable CLINICAL HISTORY: Evaulate fluid status s/p dialysis COMPARISON STUDY: Chest CT September 27, 2019. Chest radiograph October 31, 2019 at 12:57 PM. FINDINGS: A right apical bulla is again noted. There is no pneumothorax. Cardiomegaly is again noted. There are suspected small bilateral pleural effusions. Left lung transplant is noted with underlying interstitial lung disease within the [place] right lung. Bilateral opacities and interstitial thicken ing are similar to exam performed earlier today. IMPRESSION: 1. No significant change in interstitial thickening and bilateral opacities since exam performed roxann ier today. The findings favor pulmonary edema although bilateral pneumonia could appear similar. 2. Suspected small bilateral pleural effusions. 3. No pneumothorax. Right apical bulla. ACT 112: Negative or not required by law. Electronically signed by: Marvel Solomon M.D. 10/31/2019 7:01 PM
[2019-10-31] MEDS: ROSUVASTATIN CALCIUM 20 MG TAB PO SCH (20:27)
[2019-10-31] MEDS ORDERED: DOXAZosin MESYLATE 4 MG TAB PO SCH (21:00)
[2019-10-31] MEDS ORDERED: HEPARIN SOD 5,000 UNIT/0.5 ML VIAL SQ SCH (22:00)
[2019-10-31] MEDS: FUROSEMIDE 80 MG in SYRINGE 0 ML IV SCH (22:39)
[2019-10-31] MEDS: PIPERACILLIN/TAZOBACTAM 3.375 GM in DEXTROSE 5% 100 ML IV SCH (22:40)
[2019-10-31] MEDS ORDERED: INSULIN GLARGINE SOLOSTAR 100 UNITS/ML 3 ML PEN SC ONE (22:45)
[2019-10-31] MEDS ORDERED: LORazepam 0.5 MG/1 ML VIAL IV STA (23:09)
[2019-11-01] MEDS ORDERED: RAPID SEQUENCE INDUCTION BAG ONE
[2019-11-01] MEDS ORDERED: PROPOFOL IV EMULSION 10 MG/ML 100 ML VIAL IV ONE (00:32)
[2019-11-01] MEDS ORDERED: STAT IV Infusion **Titration per Protocol STA (00:35)
[2019-11-01] MEDS ORDERED: PROPOFOL BOLUS FROM BAG IV PRN (00:35)
--- NOTE | 2019-11-01 00:39 | Anesthesia Procedure Note ---
Anesthesia Procedure Note Intubation Note Date of procedure: 11/01/19 Indication for intubation: Respiratory distress Consent: Risk / Benefits Reviewed With: PT / POA / Parent / Guardian and Emergency Monitors attached: Blood Pressure, CO2, EKG and Pulse Oximetry Premedication: Etomidate (mg) (14) Paralytic medication: Succinylcholine (mg) (120) Intubation technique: Adequate preoxygenation, Mask ventilation, RSI and Cricoid pressure Equipment: Other (C-MAC videolaryngoscope. #3. ) View: Grade 2 (with cricoid for view) Endotracheal tube: Oral, 8.0 and Tube secured @ cm (23) Attempts: 2 and Atraumatic Tube placement confirmation: auscultation and Positive CO2 detection Procedure Summary: Called to assist STRAIGHT TOOTH GEAR GENERATOR OPERATOR to urgently intubate patient as he was in respiratory distress, failing biPAP. Patient preoxygenated, induced as noted above. First attempt unable to pass ETT and mask ventilated patient as he had decreased respiratory reserve. On second attempt, ETT easily passed and secured in place by respiratory therapy. VSS. Post-procedure: Pt hemodynamically stable, Pt tolerates well and No complication
[2019-11-01] MEDS: propofoL 1,000 MG/100 ML VIAL IV SCH ×7 (00:45→22:23)
[2019-11-01] MEDS ORDERED: fentaNYL citrate 100 MCG/2 ML VIAL ONE (00:53)
[2019-11-01] MEDS ORDERED: fentaNYL citrate 100 MCG/2 ML VIAL IV STA (01:00)
--- NOTE | 2019-11-01 01:06 | Procedure Note ---
Procedure Note Date of Service November 01, 2019 Note INTUBATION PROCEDURE NOTE: Provider: SHARIFA Wang Attending: Dr. Alton Hansen A time-out was completed verifying correct patient, procedure, site, positioning. Patient was evaluated and required intubation for worsening of acute hypoxic respiratory failure and failed BiPAP. Sedative agent used: Etomidate 14 mg Paralysis agent used: Succinylcholine 120 mg Emergent consent was implied given patients rapidly declining clinical status and need for airway protection. The patient was prepared in the appropriate fashion. Sedation was achieved utilizing etomidate and succinylcholine, per Dr. Bong Felix administration. The patient was ventilated using [id number] to achieve adequate oxygenation. First attempt at intubation was unsuccessful as I was unable to pass the ET tube through the cords, and patient began to desat due to decreased respiratory reserve. Once patient achieved adequate oxygenation with bag valve mask, a second attempt was made and a 8.0 [place] endotracheal tube was placed with assistance of [facility] video laryngoscope through the cords at a depth of 24 cm at the lip. The stylette was removed and balloon was inflated with 10mL of air. Appropriate Colorimetric change was appreciated. Bilateral breath sounds were heard without air sounds in the abdomen. Dr. Bong Felix was present for the entire procedure. Post Intubation Chest X-ray confirms placement without pneumothorax. Patient tolerated the procedure well and there were no immediate complications. Coding CPT Codes Resuscitation - Resuscitation: 36515 Endotracheal Intubation, emergency ([id number]) [facility] Procedure Codes (Charges) Resuscitation Resuscitation: 17400 Endotracheal Intubation, emergency
[2019-11-01 01:07] LABS: iSTAT Art Bld Gas pCO2 Correct 33 mmHg (35-46); iSTAT Art Bld Gas pH Corrected 7.356 (7.35-7.45); iSTAT Arterial Blood Gas HCO3 18 meg/L (19-24); iSTAT Arterial Blood Gas pCO2 33 mmHg (35-46); iSTAT Arterial Blood Gas pH 7.35 (7.35-7.45); iSTAT Arterial Blood Gas pO2 50 mmHg (80-95); iSTAT Arterial Blood Gas pO2 C 48; iSTAT Carbon Dioxide 19 mmol/L (24-31); iSTAT FiO2 70 %; iSTAT Hematocrit 25 % (42-52); iSTAT Hemoglobin 8.5 g/dl (14.0-18.0); iSTAT Potassium 4.1 mmol/L (3.3-5.0); iSTAT Site L Radial; iSTAT Sodium 138 mmol/L (135-144)
[2019-11-01] MEDS: fentaNYL citrate 100 MCG/2 ML VIAL IV PRN ×2 (03:42→05:06)
[2019-11-01 04:37] LABS: Hematocrit (blood only) 22.8 % (42-52); Hemoglobin 7.6 g/dL (14.0-18.0); Mean Corpuscular Hemoglobin 35.7 pg (25-34); Mean Corpuscular Hgb Conc 33.3 g/dL (32-36); Nucleated RBC # (auto) 0.03 K/uL (0-0); Nucleated RBC % (auto) 0.2 %; Platelet Count 133 K/uL (130-400); RDW Coefficient of Variation 16.4 % (11.5-14.5); RDW Standard Deviation 63.1 fL (36.4-46.3); Red Blood Count 2.13 M/uL (4.7-6.1); White Blood Count 15.23 K/uL (4.8-10.8)
[2019-11-01] MEDS ORDERED: INSULIN ASPART PER UNIT 5 UNITS in SYRINGE 0 ML SC STA (04:40)
[2019-11-01] MEDS ORDERED: INSULIN ASPART 100 UNITS/ML 3 ML PEN SC ONE (04:45)
[2019-11-01 04:51] LABS: INR 2.9 (0.9-1.1); Prothrombin Time 29.1 Seconds (9.0-12.0)
[2019-11-01 05:13] LABS: BUN Creatinine Ratio 14.1 (10-20); Calcium 8.3 mg/dl (8.5-10.1); Creatinine Clr Calc Pharmacy 9.9 ml/min; Est GFR (African American) 8.1; Magnesium 1.9 mg/dl (1.8-2.4); Phosphorus 5.2 mg/dl (2.5-4.9); Potassium 4.1 mmol/L (3.5-5.1)
--- NOTE | 2019-11-01 05:21 | Electrocardiogram Report ---
Test Reason : Blood Pressure : / mmHG Vent. Rate : 052 BPM Atrial Rate : 059 BPM P-R Int : 000 ms QRS Dur : 138 ms QT Int : 536 ms P-R-T Axes : 000 -27 095 degrees QTc Int : 498 ms Atrial fibrillation with slow ventricular response Non-specific intra-ventricular conduction block Abnormal ECG When compared with ECG of 28-SEP-2019 04:47, Atrial fibrillation has replaced Atrial flutter QRS duration has increased Confirmed by Juanito Sellers ([id number]) on 11/01/2019 5:21:03 AM Referred By: REFERRED SELF Confirmed By:Juanito Sellers
[2019-11-01 05:57] LABS: iSTAT Allen Test Pass; iSTAT Art Bld Gas pCO2 Correct 30 mmHg (35-46); iSTAT Art Bld Gas pH Corrected 7.416 (7.35-7.45); iSTAT Arterial Blood Gas HCO3 20 meg/L (19-24); iSTAT Arterial Blood Gas pCO2 32 mmHg (35-46); iSTAT Arterial Blood Gas pO2 135 mmHg (80-95); iSTAT Arterial Blood Gas pO2 C 127; iSTAT Carbon Dioxide 21 mmol/L (24-31); iSTAT FiO2 50 %; iSTAT Hematocrit 22 % (42-52); iSTAT Hemoglobin 7.5 g/dl (14.0-18.0); iSTAT Site L Radial; iSTAT Sodium 136 mmol/L (135-144)
[2019-11-01] MEDS: HydrALAZINE 10 MG TAB PO SCH (06:04)
[2019-11-01] MEDS ORDERED: MAGNESIUM SULFATE / D5W 1 GM/100 ML BAG IV ONE (06:30)
--- NOTE | 2019-11-01 06:48 | XRay Report ---
XR chest 1V portable HISTORY: 78 years-old Male intubation acute respiratory failure COMPARISON: Chest radiograph 10/31/2019, chest CT 09/27/2019 TECHNIQUE: Portable AP view of the chest FINDINGS: Patient is side bent and slightly rotated which limits the study. Status post intubation. Endotrachea l tube overlies the midline, 6.0 cm superior to the yung. Enteric tube courses below the diaphragm with distal tip outside the [id number]. No pneumothorax. Cardiomegaly. Bilateral pleural effusions persist. Extensive bilateral mixed interstitial and alveolar opacities. Chronic right lung volume lo ss with large right upper lung bulla. Degenerative changes of the shoulders and spine. IMPRESSION: 1. Endotracheal and enteric tubes as above. 2. Extensive bilateral mixed interstitial and alveolar opacities are redemonstrated along with chroni c right lung volume loss. Pulmonary edema versus multifocal pneumonia remain the differential conside rations. 3. Cardiomegaly with unchanged pleural effusions. ACT 112: Negative or not required by law. The above report was generated using voice recognition software. It may contain grammatical, syntax o r spelling errors. Electronically signed by: Nathaniel Dan M.D. 11/01/2019 6:47 AM
[2019-11-01] MEDS: TOBRAMYCIN SULFATE INH SCH ×2 (07:05→19:26)
[2019-11-01] MEDS: ALBUT/IPRATROP 3MG/0.5MG NEB 3 ML VIAL NEB SCH ×4 (07:05→19:26)
[2019-11-01] MEDS: AMLODIPINE BESYLATE 5 MG TAB PO SCH ×2 (07:40→22:31)
[2019-11-01] MEDS: FLUTICASONE/VILANTEROL 100/25MCG 14 PUFFS/INHALER INH SCH (07:40)
[2019-11-01] MEDS: PANTOprazole 40 MG TAB PO SCH (07:42)
[2019-11-01] MEDS: guaiFENesin 600 MG TABCR PO SCH (07:42)
[2019-11-01] MEDS: INSULIN GLARGINE SOLOSTAR 100 UNITS/ML 3 ML PEN SC SCH (07:55)
[2019-11-01] MEDS: FUROSEMIDE 80 MG in SYRINGE 0 ML IV SCH (07:55)
[2019-11-01] MEDS: INSULIN ASPART 100 UNITS/ML 3 ML PEN SC SCH ×3 (07:57→17:25)
[2019-11-01] MEDS ORDERED: SUCCINYLCHOLINE CHLORIDE 20 MG/ML 10 ML VIAL IV ONE (07:59)
[2019-11-01] MEDS ORDERED: ETOMIDATE 2 MG/ML 20 ML VIAL IV ONE (07:59)
[2019-11-01] MEDS ORDERED: Nursing to Pharmacy Communication ONE (08:30)
[2019-11-01] MEDS ORDERED: LIDOCAINE/PRILOCAINE 2.5% EA CRM EXT ONE (08:34)
[2019-11-01] MEDS: ACYCLOVIR 400 MG TAB PO SCH (08:55)
[2019-11-01] MEDS: CLOPIDOGREL BISULFATE 75 MG TAB PO SCH (08:55)
[2019-11-01] MEDS: predniSONE 5 MG TAB PO SCH (08:55)
[2019-11-01] MEDS ORDERED: IRON SUCROSE 200 MG in 0.9 % SODIUM CHLORIDE 100 ML IV ONE (09:00)
--- NOTE | 2019-11-01 09:14 | Critical Care Progress Note ---
Date of Service November 01, 2019 Assessment & Plan (1) Acute hypoxemic respiratory failure: 78-year-old male with past medical history of unilateral left- sided lung transplant on immunosuppressive medication along with antiviral and antibiotics, systolic CHF ejection fraction 35%, dyslipidemia, hypertension, COPD was admitted to hospital because of worsening shortness of breath and h ypoxia found in the ED. ICU was consulted for hypoxic respiratory failure as patient was requiring 15 L of nasal cannula still saturating in the high 80s. EKG 10/30/2019: Poor quality. A. fib with bradycardia, left axis deviation, no ST-T wave changes appreciated. -- VDRF sec Acute Hypoxic respiratory failure Rule out pneumonia Atypical pulmonary edema can present this way especially in a patient who had lung transplant on the left with history of systolic CHF and end-stage renal disease c/w broad-spectrum antibiotic with atypical coverage Follow-up septic work-up, influenza negative, Covid-19 PCR negative, MRSA negative ESR:28, CRP: 2.22, Procalcitonin: 0.08 Continue with ventilatory support Keep RASS -1 Daily sedation holidays and SBT's Chlorhexidine mouthwash --CKD now end-stage renal disease Started on hemodialysis 10/31/2019 Patient is on chronic bicarb Nephrology on board -- HAGMA Delta-delta: Less than 1 Gap plus non-gap, gap likely from elevated BUN, could be from CKD Monitor --Elevated troponin Likely secondary to type II IA EKG shows no ST-T wave changes Monitor Cardiology on board --Bradycardia with prolonged QTC Could be from the use of beta-cally Will hold beta-blockers for the time being If the patient gets symptomatic we will give him glucagon Avoid QT prolonging medication. 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 Patient is on chronic immunosuppressive therapy with chronic antibiotic along with chronic prednisone 5 mg Mycophenolate and tacrolimus along with acyclovir, azithromycin, Bactrim and tobramycin inhaled Would continue it for the time being Dosing of the immunosuppressive medication as well as antibiotic needs to be adjusted as the patient has no incisional disease Transplant doctor at [facility] has been restarted by the hospitalist will follow recommendation --Systolic CHF Ejection fraction 30-35% on echo done 09/28/2019 Plan as above --COPD Not in acute exacerbation Continue with inhaled bronchodilators --A. fib chronic On chronic warfarin at home Keep INR between 2-3 --Hypertension with dyslipidemia Continue with blood pressure medications Continue with statin --Prophylaxis GI: Protonix DVT: Warfarin Diet: Cardiorenal IV: Peripheral, right arm AV fistula Plan: In-N-Out: + 470 AB.39/32/135 on 50% FiO2 with PEEP of 12 Patient's inflammatory markers are not that elevated which puts the likelihood of pneumonia on the lower side although in a patient who is immunocompromised I would continue with antibiotics for at least 48 hours. Patient to get dialysis today as well we will coordinate with nephrology to take out at least 2 L. We will repeat chest x-ray after that if there is no significant improvement then will think of getting BAL from the transplanted lung to make sure there is no underlying infection. There has been increase in WBC count from 7.18 -->15.23 this could be reactive. We will continue to monitor INR today is 2.9. Will restart warfarin tomorrow if the H&H is stable. We will do sputum culture. I have personally spent 35 minutes of critical care time in the direct management of this patient. This is a life/limb threatening event. This includes time spent evaluating patient, direct bedside care, chart review, placing orders, interpretation of diagnostic studies, discussion with consultants, patient, and family members, as well as other required patient management activities. This time is exclusive of all separately billable procedures, and teaching time and separate from and in addition to any other critical care service time. Please note the above document was generated using voice recognition software. It may contain grammatical, syntax or spelling errors. (2) ESRD (end stage renal disease) on dialysis: (3) Lung transplant recipient: (4) CHF (congestive heart failure): (5) Chronic a-fib: Admission and Anticipated Discharge Date Admission Date: October 30, 2019 Subjective Patient seen and examined at bedside. No acute distress. Overnight patient got short of breath and he was not tolerating BiPAP leading to intubation. Initially patient was on PEEP of 12 but gradually it has been down to PEEP of 6 at the time of examination and FiO2 40%. Chest x-ray postdialysis better to count only 0.6 L distal little bit of improvement but not significant. Patient was on propofol 50 at the time of examination. Review of Systems Review of Systems: Unobtainable due to endotracheal tube Physical Exam Physical Exam: Constitutional: Intubated HEENT: EOMI, PERRLA, right eye prosthetic Respiratory system: Decreased air entry bilaterally, positive crackles bilateral lower lobes, no wheeze, no rhonchi CVS: S1-S2 positive, no murmurs or gallops, positive 2 out of 6 holo-systolic murmur best appreciated at the aorta Abdomen: Soft, nontender, nondistended, positive bowel sounds x4 Extremities: +2 pulses bilaterally radialis/ dorsalis pedis, no cyanosis, no edema, no clubbing, right forearm AV fistula Neuro: RASS -2 Psych: Unable to assess G/U: Positive Skin: no rashes, warm and dry Lymphatic: no cervical or axillary lymphadenopathy Results & Data Results & Data ([facility]) Vital Signs (Past 12 Hours) Vital Signs Temp Pulse Pulse Resp BP Pulse Ox 11/01/19 08:49 63 126/54 L 98 11/01/19 08:35 55 L 124/52 L 97 11/01/19 08:30 55 L 97 11/01/19 08:19 60 112/48 L 97 11/01/19 08:04 56 L 115/47 L 97 11/01/19 08:00 54 L 97 11/01/19 07:49 47 L 119/51 L 97 11/01/19 07:34 47 L 116/56 L 97 11/01/19 07:30 57 L 97 11/01/19 07:19 60 121/50 L 98 11/01/19 07:16 18 11/01/19 07:15 56 L 18 97 11/01/19 07:04 58 L 115/51 L 98 11/01/19 07:00 58 L 98 11/01/19 06:49 56 L 109/48 L 98 11/01/19 06:34 59 L 114/48 L 99 11/01/19 06:30 52 L 99 11/01/19 06:19 52 L 108/54 L 99 11/01/19 06:04 56 L 120/53 L 99 11/01/19 06:00 53 L 99 11/01/19 05:58 60 22 98 11/01/19 05:50 52 L 113/57 L 98 11/01/19 05:30 53 L 99 11/01/19 05:20 59 L 128/56 L 98 11/01/19 05:04 53 L 132/68 97 11/01/19 05:00 52 L 97 11/01/19 04:49 55 L 125/55 L 97 11/01/19 04:34 54 L 126/57 L 97 11/01/19 04:30 58 L 97 11/01/19 04:19 54 L 126/64 98 11/01/19 04:04 59 L 128/65 98 11/01/19 04:00 53 L 98 11/01/19 03:49 64 127/65 98 11/01/19 03:34 55 L 126/62 98 11/01/19 03:30 57 L 98 11/01/19 03:19 60 123/66 98 11/01/19 03:04 54 L 126/59 L 98 11/01/19 03:02 61 128/58 L 98 11/01/19 03:01 55 L 98 11/01/19 03:00 60 124/62 98 11/01/19 02:58 58 L 126/60 98 11/01/19 02:55 61 130/66 98 11/01/19 02:54 57 L 136/59 L 98 11/01/19 02:51 68 132/65 98 11/01/19 02:50 66 129/60 98 11/01/19 02:48 56 L 129/72 98 11/01/19 02:45 61 129/54 L 98 11/01/19 02:43 58 L 130/56 L 98 11/01/19 02:41 58 L 126/57 L 98 11/01/19 02:39 55 L 133/59 L 98 11/01/19 02:38 57 L 118/60 98 11/01/19 02:35 61 125/66 98 11/01/19 02:33 63 127/54 L 98 11/01/19 02:31 63 125/63 97 11/01/19 02:29 67 128/54 L 97 11/01/19 02:28 57 L 131/60 97 11/01/19 02:26 58 L 137/63 95 11/01/19 02:23 62 132/60 95 11/01/19 02:21 63 128/65 95 11/01/19 02:19 61 125/74 96 11/01/19 02:17 61 124/75 95 11/01/19 02:15 59 L 132/61 95 11/01/19 02:13 59 L 130/58 L 95 11/01/19 02:11 57 L 126/68 96 11/01/19 02:09 65 122/60 96 11/01/19 02:07 61 120/70 96 11/01/19 02:05 61 133/67 96 11/01/19 02:03 67 127/64 96 11/01/19 02:01 68 122/54 L 96 11/01/19 01:59 58 L 137/59 L 96 11/01/19 01:57 63 117/65 96 11/01/19 01:55 58 L 128/62 96 11/01/19 01:53 67 134/66 96 11/01/19 01:51 63 126/82 96 11/01/19 01:49 62 123/69 96 11/01/19 01:47 59 L 142/45 H 96 11/01/19 01:45 62 131/73 95 11/01/19 01:43 62 127/64 96 11/01/19 01:41 64 124/65 97 11/01/19 01:39 61 126/69 97 11/01/19 01:37 62 130/72 97 11/01/19 01:35 56 L 126/58 L 97 11/01/19 01:33 61 126/62 97 11/01/19 01:31 60 129/52 L 97 11/01/19 01:30 56 L 97 11/01/19 01:29 63 121/58 L 97 11/01/19 01:27 59 L 131/69 97 11/01/19 01:25 61 128/64 97 11/01/19 01:23 68 124/73 97 11/01/19 01:21 63 119/67 98 11/01/19 01:18 63 97 11/01/19 01:16 64 24 98 11/01/19 01:13 63 143/65 H 98 11/01/19 01:11 66 136/54 L 97 11/01/19 01:09 59 L 111/56 L 98 11/01/19 01:07 63 130/54 L 97 11/01/19 01:05 61 130/58 L 97 11/01/19 01:03 62 131/55 L 98 11/01/19 01:01 63 133/58 L 98 11/01/19 01:00 60 98 11/01/19 00:59 62 137/54 L 98 11/01/19 00:56 66 133/59 L 97 11/01/19 00:54 69 123/61 97 11/01/19 00:46 70 97 11/01/19 00:43 66 139/54 L 98 11/01/19 00:41 73 143/55 H 98 11/01/19 00:39 71 140/59 L 96 11/01/19 00:37 64 27 H 152/59 H 95 11/01/19 00:34 68 27 H 154/72 H 94 11/01/19 00:32 61 24 151/66 H 87 L 11/01/19 00:30 58 L 16 150/65 H 89 L 11/01/19 00:28 64 22 156/72 H 96 11/01/19 00:26 58 L 30 H 158/76 H 81 L 11/01/19 00:24 66 26 H 168/64 H 80 L 11/01/19 00:23 70 28 H 169/66 H 78 L 11/01/19 00:19 62 30 H 128/57 L 99 11/01/19 00:00 69 37 H 89 L 10/31/19 23:55 69 29 H 137/60 87 L 10/31/19 23:41 62 23 122/59 L 92 10/31/19 22:40 69 30 H 145/60 H 93 10/31/19 22:25 68 21 130/58 L 95 10/31/19 22:10 69 28 H 133/66 97 10/31/19 22:00 36.4 C L 67 21 95 10/31/19 21:56 64 23 130/63 95 10/31/19 21:40 63 26 H 122/72 93 10/31/19 21:25 67 28 H 126/53 L 94 10/31/19 21:10 66 30 H 136/68 93 11/01/19 04:15 11/01/19 04:15 Coding Level of Care Code Critical Care 1st 30-74 mins Diagnoses Acute hypoxemic respiratory failure J96.01 ESRD (end stage renal disease) on dialysis N18.6; Z99.2 Lung transplant recipient Z94.2 CHF (congestive heart failure) I50.9 Heart failure chronicity: unspecified Heart failure type: unspecified Chronic a-fib I48.2 Time Spent (min) 35 (1) CHF (congestive heart failure) Heart failure chronicity: unspecified Heart failure type: unspecified Qualified Code(s): I50.9 - Heart failure, unspecified
[2019-11-01] MEDS: TACROLIMUS 0.5 MG CAP PO SCH (09:57)
[2019-11-01] MEDS: MYCOPHENOLATE SODIUM 180 MG TAB PO SCH (10:10)
[2019-11-01] MEDS: FLUOXETINE HCL 20 MG CAP PO SCH (10:11)
[2019-11-01] MEDS: MONTELUKAST SODIUM 10 MG TABLET PO SCH (10:11)
[2019-11-01] MEDS: DOXYCYCLINE HYCLATE 100 MG CAP PO SCH (10:11)
[2019-11-01] MEDS: PANTOprazole 40 MG in SYRINGE 0 ML IV SCH ×2 (10:17→20:01)
[2019-11-01] MEDS: DOXYCYCLINE HYCLATE 100 MG in DEXTROSE 5% 100 ML IV SCH ×2 (10:17→21:50)
[2019-11-01] MEDS: PIPERACILLIN/TAZOBACTAM 3.375 GM in DEXTROSE 5% 100 ML IV SCH ×2 (10:21→22:28)
--- NOTE | 2019-11-01 10:24 | Nephrology Progress Note ---
Date of Service November 01, 2019 Assessment & Plan (1) ESRD (end stage renal disease) on dialysis: Abdi has ESRD due to multifactorial etiology including OLIVIER, tobramycin, HTN and DM. Has mature right radiocephalic AV fistula. Has hypertension which seems to be well controlled, on labetalol and doxazosin, has not been on CRISSY- inhibitor/ARB. History of diabetes without retinopathy, on insulin. He has been on PPI and Tobramycin for long time for his lung transplant. No history of NSAID use. Had 1st dialysis treatment on 10/31/2019, had 600 mL UF and had 1 hour 45 minutes treatment. Remained volume overloaded and did not respond much to IV diuretics and overnight intubated as he could not tolerate BiPAP. -- dialysis today for 3 hours and plan for at least 2 liters UF. Continue on Lasix 80 milligram twice a day. --outpatient dialysis at [facility]. --discontinue NaBicarb --will start on phosphate binder and Renal Cap once extubated and starts p.o. intake --right arm nephrology precaution --epogen 34498 units x1 dose given on 10/31/2019 --start on IV Venofer Will follow (2) Anemia secondary to renal failure: (3) Hyperparathyroidism: (4) HTN (hypertension): (5) Lung transplant status: (6) Diabetes mellitus, type II: Admission and Anticipated Discharge Date Admission Date: October 30, 2019 Phyllis Dunn was seen and examined in ICU this morning. Overnight he was intubated, currently remained sedated. Vital signs stable. Oxygen requirement improved, currently on 40% FiO2. Had 1st dialysis treatment yesterday however, had only 600 mL UF as the system started to clot near the end of treatment and could not complete 2 hours treatment. Urine output dropped dramatically and did not respond urine output dropped dramatically and did not respond much to 120 milligram of IV Lasix AV fistula worked well for 1st treatment. Hemoglobin slightly low at 7.6, electrolyte acceptable. Review of Systems Review of Systems: Unobtainable due to endotracheal tube Physical Exam Constitutional: + ill appearing and + mechanically ventilated; no acute distress Respiratory: normal respiratory effort Auscultation: + crackles Cardiovascular: Rate/Rhythm: regular rate and regular rhythm Heart Sounds: normal S1 and normal S2 Extremities: no edema Skin: no rashes, warm and dry Neurologic: Could not be assessed as patient intubated. Psychiatric: Intubated and sedated. Results & Data ([facility]) Vital Signs (Past 12 Hours) Vital Signs Pulse Pulse Resp BP Pulse Ox 11/01/19 08:49 63 126/54 L 98 11/01/19 08:35 55 L 124/52 L 97 11/01/19 08:30 55 L 97 11/01/19 08:19 60 112/48 L 97 11/01/19 08:04 56 L 115/47 L 97 11/01/19 08:00 54 L 97 11/01/19 07:49 47 L 119/51 L 97 11/01/19 07:34 47 L 116/56 L 97 11/01/19 07:30 57 L 97 11/01/19 07:19 60 121/50 L 98 11/01/19 07:16 18 11/01/19 07:15 56 L 18 97 11/01/19 07:04 58 L 115/51 L 98 11/01/19 07:00 58 L 98 11/01/19 06:49 56 L 109/48 L 98 11/01/19 06:34 59 L 114/48 L 99 11/01/19 06:30 52 L 99 11/01/19 06:19 52 L 108/54 L 99 11/01/19 06:04 56 L 120/53 L 99 11/01/19 06:00 53 L 99 11/01/19 05:58 60 22 98 11/01/19 05:50 52 L 113/57 L 98 11/01/19 05:30 53 L 99 11/01/19 05:20 59 L 128/56 L 98 11/01/19 05:04 53 L 132/68 97 11/01/19 05:00 52 L 97 11/01/19 04:49 55 L 125/55 L 97 11/01/19 04:34 54 L 126/57 L 97 11/01/19 04:30 58 L 97 11/01/19 04:19 54 L 126/64 98 11/01/19 04:04 59 L 128/65 98 11/01/19 04:00 53 L 98 11/01/19 03:49 64 127/65 98 11/01/19 03:34 55 L 126/62 98 11/01/19 03:30 57 L 98 11/01/19 03:19 60 123/66 98 11/01/19 03:04 54 L 126/59 L 98 11/01/19 03:02 61 128/58 L 98 11/01/19 03:01 55 L 98 11/01/19 03:00 60 124/62 98 11/01/19 02:58 58 L 126/60 98 11/01/19 02:55 61 130/66 98 11/01/19 02:54 57 L 136/59 L 98 11/01/19 02:51 68 132/65 98 11/01/19 02:50 66 129/60 98 11/01/19 02:48 56 L 129/72 98 11/01/19 02:45 61 129/54 L 98 11/01/19 02:43 58 L 130/56 L 98 11/01/19 02:41 58 L 126/57 L 98 11/01/19 02:39 55 L 133/59 L 98 11/01/19 02:38 57 L 118/60 98 11/01/19 02:35 61 125/66 98 11/01/19 02:33 63 127/54 L 98 11/01/19 02:31 63 125/63 97 11/01/19 02:29 67 128/54 L 97 11/01/19 02:28 57 L 131/60 97 11/01/19 02:26 58 L 137/63 95 11/01/19 02:23 62 132/60 95 11/01/19 02:21 63 128/65 95 11/01/19 02:19 61 125/74 96 11/01/19 02:17 61 124/75 95 11/01/19 02:15 59 L 132/61 95 11/01/19 02:13 59 L 130/58 L 95 11/01/19 02:11 57 L 126/68 96 11/01/19 02:09 65 122/60 96 11/01/19 02:07 61 120/70 96 11/01/19 02:05 61 133/67 96 11/01/19 02:03 67 127/64 96 11/01/19 02:01 68 122/54 L 96 11/01/19 01:59 58 L 137/59 L 96 11/01/19 01:57 63 117/65 96 11/01/19 01:55 58 L 128/62 96 11/01/19 01:53 67 134/66 96 11/01/19 01:51 63 126/82 96 11/01/19 01:49 62 123/69 96 11/01/19 01:47 59 L 142/45 H 96 11/01/19 01:45 62 131/73 95 11/01/19 01:43 62 127/64 96 11/01/19 01:41 64 124/65 97 11/01/19 01:39 61 126/69 97 11/01/19 01:37 62 130/72 97 11/01/19 01:35 56 L 126/58 L 97 11/01/19 01:33 61 126/62 97 11/01/19 01:31 60 129/52 L 97 11/01/19 01:30 56 L 97 11/01/19 01:29 63 121/58 L 97 11/01/19 01:27 59 L 131/69 97 11/01/19 01:25 61 128/64 97 11/01/19 01:23 68 124/73 97 11/01/19 01:21 63 119/67 98 11/01/19 01:18 63 97 11/01/19 01:16 64 24 98 11/01/19 01:13 63 143/65 H 98 11/01/19 01:11 66 136/54 L 97 11/01/19 01:09 59 L 111/56 L 98 11/01/19 01:07 63 130/54 L 97 11/01/19 01:05 61 130/58 L 97 11/01/19 01:03 62 131/55 L 98 11/01/19 01:01 63 133/58 L 98 11/01/19 01:00 60 98 11/01/19 00:59 62 137/54 L 98 11/01/19 00:56 66 133/59 L 97 11/01/19 00:54 69 123/61 97 11/01/19 00:46 70 97 11/01/19 00:43 66 139/54 L 98 11/01/19 00:41 73 143/55 H 98 11/01/19 00:39 71 140/59 L 96 11/01/19 00:37 64 27 H 152/59 H 95 11/01/19 00:34 68 27 H 154/72 H 94 11/01/19 00:32 61 24 151/66 H 87 L 11/01/19 00:30 58 L 16 150/65 H 89 L 11/01/19 00:28 64 22 156/72 H 96 11/01/19 00:26 58 L 30 H 158/76 H 81 L 11/01/19 00:24 66 26 H 168/64 H 80 L 11/01/19 00:23 70 28 H 169/66 H 78 L 11/01/19 00:19 62 30 H 128/57 L 99 11/01/19 00:00 69 37 H 89 L 10/31/19 23:55 69 29 H 137/60 87 L 10/31/19 23:41 62 23 122/59 L 92 10/31/19 22:40 69 30 H 145/60 H 93 10/31/19 22:25 68 21 130/58 L 95 PG Care Time/CCT Total # of Minutes Spent Total Time Spent with Patient: Total time spent is greater than 50% in coordination of care (as documented) at patient's floor/unit and/or counseling patient: Coding Level of Care Code 33063 Subseq Hosp Care Lvl 3 Diagnoses ESRD (end stage renal disease) on dialysis N18.6; Z99.2 Anemia secondary to renal failure D63.1 Hyperparathyroidism E21.3 HTN (hypertension) I10 Hypertension type: unspecified Lung transplant status Z94.2 Diabetes mellitus, type II E11.9 (1) HTN (hypertension) Hypertension type: unspecified Qualified Code(s): I10 - Essential (primary) hypertension
--- NOTE | 2019-11-01 10:48 | Hospitalist Progress Note ---
Date of Service November 01, 2019 Assessment & Plan (1) Acute hypoxemic respiratory failure: Acute respiratory failure with hypoxia Now VDRF Secondary to pulmonary edema Other possibilities include pneumonia Volume overload in setting of Acute Systolic CHF, ESRD, IPF CXR:Increasing left lung infiltrates concerning for worsening pneumonia in the transplanted left lung. Chronic right mid to basilar infiltrates compatible with chronic interstitial lung disease. Involvement of pneumonia may also be present. 3. Suspected right pleural effusion. Cardiomegaly. Some degree of volume overload or congestive change is difficult to exclude. COVID-19 screen and influenza screen are negative I/O so far over the past 24h is 1725/425 Will continue IV diuresis Plan for HD with fluid removal Protocol is 0.08. WBC increased from 7 yesterday to 15 today. However, will continue empiric antibiotics Follow-up blood cultures contract administration specialist recommendations appreciated. Continue vent management per protocol and wean as appropriate (2) Afib (3) Bradycardia ? SSS Prolonged QTC Beta-cally on hold Monitor on telemetry Avoid QTC prolonging meds Cardiology evaluation noted (4) Supratherapeutic INR H/O DVT INR was 3.3 on admission. 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 Mari Teixeira on 11/01/19 Contact NO:[phone] Current medications have been adjusted appropriately for renal function She did state that if we ever need to speak to transplant physician geographic information systems manager to call [phone] (9) DM 2 Hb A1C: 5.24 September 2019 Continue Insulin therapy Monitor BGs DVT Px: Resume Coumadin tomorrow Code Status Full code Disposition Continue ICU care I called and updated her on patient's current status and plan of care Admission and Anticipated Discharge Date Admission Date: October 30, 2019 Subjective 78-year-old man with history of left lung transplant on immunosuppressive therapy, systolic heart failure with EF of 35%, hypertension, dyslipidemia, COPD who was admitted for worsening shortness of breath found to be hypoxic. For hypoxic respiratory failure, patient was initially put on noninvasive ventilation. However, patient was intubated overnight for hypoxia and poor tolerance to NIV. Patient is currently intubated and sedated. Was seen and examined. Review of Systems Review of Systems: Unobtainable due to endotracheal tube and Unobtainable due to reduced consciousness Physical Exam Constitutional: Patient is currently intubated and sedated on propofol ENMT: ET tube and NG tube in situ Respiratory: ET tube in situ Reduced breath sounds bilaterally Basilar crackles Cardiovascular: Bradycardic, rate of 56 Pulse is irregularly irregular No pedal edema Gastrointestinal (Abdomen): normal bowel sounds, soft, nontender, no hepatosplenomegaly Musculoskeletal: No pedal edema Right forearm AVF Neurologic: ETT in situ Sedated Results & Data Results & Data ([facility]) Vital Signs (Past 12 Hours) Vital Signs Pulse Pulse Resp BP Pulse Ox 11/01/19 08:49 63 126/54 L 98 11/01/19 08:35 55 L 124/52 L 97 11/01/19 08:30 55 L 97 11/01/19 08:19 60 112/48 L 97 11/01/19 08:04 56 L 115/47 L 97 11/01/19 08:00 54 L 97 11/01/19 07:49 47 L 119/51 L 97 11/01/19 07:34 47 L 116/56 L 97 11/01/19 07:30 57 L 97 11/01/19 07:19 60 121/50 L 98 11/01/19 07:16 18 11/01/19 07:15 56 L 18 97 11/01/19 07:04 58 L 115/51 L 98 11/01/19 07:00 58 L 98 11/01/19 06:49 56 L 109/48 L 98 11/01/19 06:34 59 L 114/48 L 99 11/01/19 06:30 52 L 99 11/01/19 06:19 52 L 108/54 L 99 11/01/19 06:04 56 L 120/53 L 99 11/01/19 06:00 53 L 99 05/13/20 05:58 60 22 98 11/01/19 05:50 52 L 113/57 L 98 11/01/19 05:30 53 L 99 11/01/19 05:20 59 L 128/56 L 98 11/01/19 05:04 53 L 132/68 97 11/01/19 05:00 52 L 97 11/01/19 04:49 55 L 125/55 L 97 11/01/19 04:34 54 L 126/57 L 97 11/01/19 04:30 58 L 97 11/01/19 04:19 54 L 126/64 98 11/01/19 04:04 59 L 128/65 98 11/01/19 04:00 53 L 98 11/01/19 03:49 64 127/65 98 11/01/19 03:34 55 L 126/62 98 11/01/19 03:30 57 L 98 11/01/19 03:19 60 123/66 98 11/01/19 03:04 54 L 126/59 L 98 11/01/19 03:02 61 128/58 L 98 11/01/19 03:01 55 L 98 11/01/19 03:00 60 124/62 98 11/01/19 02:58 58 L 126/60 98 11/01/19 02:55 61 130/66 98 11/01/19 02:54 57 L 136/59 L 98 11/01/19 02:51 68 132/65 98 11/01/19 02:50 66 129/60 98 11/01/19 02:48 56 L 129/72 98 11/01/19 02:45 61 129/54 L 98 11/01/19 02:43 58 L 130/56 L 98 11/01/19 02:41 58 L 126/57 L 98 11/01/19 02:39 55 L 133/59 L 98 11/01/19 02:38 57 L 118/60 98 11/01/19 02:35 61 125/66 98 11/01/19 02:33 63 127/54 L 98 11/01/19 02:31 63 125/63 97 11/01/19 02:29 67 128/54 L 97 11/01/19 02:28 57 L 131/60 97 11/01/19 02:26 58 L 137/63 95 11/01/19 02:23 62 132/60 95 11/01/19 02:21 63 128/65 95 11/01/19 02:19 61 125/74 96 11/01/19 02:17 61 124/75 95 11/01/19 02:15 59 L 132/61 95 11/01/19 02:13 59 L 130/58 L 95 11/01/19 02:11 57 L 126/68 96 11/01/19 02:09 65 122/60 96 11/01/19 02:07 61 120/70 96 11/01/19 02:05 61 133/67 96 11/01/19 02:03 67 127/64 96 11/01/19 02:01 68 122/54 L 96 11/01/19 01:59 58 L 137/59 L 96 11/01/19 01:57 63 117/65 96 11/01/19 01:55 58 L 128/62 96 11/01/19 01:53 67 134/66 96 11/01/19 01:51 63 126/82 96 11/01/19 01:49 62 123/69 96 11/01/19 01:47 59 L 142/45 H 96 11/01/19 01:45 62 131/73 95 11/01/19 01:43 62 127/64 96 11/01/19 01:41 64 124/65 97 11/01/19 01:39 61 126/69 97 11/01/19 01:37 62 130/72 97 11/01/19 01:35 56 L 126/58 L 97 11/01/19 01:33 61 126/62 97 11/01/19 01:31 60 129/52 L 97 11/01/19 01:30 56 L 97 11/01/19 01:29 63 121/58 L 97 11/01/19 01:27 59 L 131/69 97 11/01/19 01:25 61 128/64 97 11/01/19 01:23 68 124/73 97 11/01/19 01:21 63 119/67 98 11/01/19 01:18 63 97 11/01/19 01:16 64 24 98 11/01/19 01:13 63 143/65 H 98 11/01/19 01:11 66 136/54 L 97 11/01/19 01:09 59 L 111/56 L 98 11/01/19 01:07 63 130/54 L 97 11/01/19 01:05 61 130/58 L 97 11/01/19 01:03 62 131/55 L 98 11/01/19 01:01 63 133/58 L 98 11/01/19 01:00 60 98 11/01/19 00:59 62 137/54 L 98 11/01/19 00:56 66 133/59 L 97 11/01/19 00:54 69 123/61 97 11/01/19 00:46 70 97 11/01/19 00:43 66 139/54 L 98 11/01/19 00:41 73 143/55 H 98 11/01/19 00:39 71 140/59 L 96 11/01/19 00:37 64 27 H 152/59 H 95 11/01/19 00:34 68 27 H 154/72 H 94 11/01/19 00:32 61 24 151/66 H 87 L 11/01/19 00:30 58 L 16 150/65 H 89 L 11/01/19 00:28 64 22 156/72 H 96 11/01/19 00:26 58 L 30 H 158/76 H 81 L 11/01/19 00:24 66 26 H 168/64 H 80 L 11/01/19 00:23 70 28 H 169/66 H 78 L 11/01/19 00:19 62 30 H 128/57 L 99 11/01/19 00:00 69 37 H 89 L 10/31/19 23:55 69 29 H 137/60 87 L 10/31/19 23:41 62 23 122/59 L 92 Laboratory Results Short CBC 11/01/19 Range/Units 04:15 WBC 15.23 H (4.8-10.8) K/uL Hgb 7.6 L (14.0-18.0) g/dL Hct 22.8 L (42-52) % Plt Count 133 (130-400) K/uL BMP 11/01/19 04:15 Sodium 138 Potassium 4.1 Chloride 107 Carbon Dioxide 20 L BUN 97 H Creatinine 6.89 H* Glucose 219 H Calcium 8.3 L Diagnostic Findings XR chest 1V portable HISTORY: 78 years-old Male intubation acute respiratory failure COMPARISON: Chest radiograph 10/31/2019, chest CT 09/27/2019 TECHNIQUE: Portable AP view of the chest FINDINGS: Patient is side bent and slightly rotated which limits the study. Status post intubation. Endotracheal tube overlies the midline, 6.0 cm superior to the yung. Enteric tube courses below the diaphragm with distal tip outside the [id number]. No pneumothorax. Cardiomegaly. Bilateral pleural effusions persist. Extensive bilateral mixed interstitial and alveolar opacities. Chronic right lung volume loss with large right upper lung bulla. Degenerative changes of the shoulders and spine. IMPRESSION: 1. Endotracheal and enteric tubes as above. 2. Extensive bilateral mixed interstitial and alveolar opacities are redemonstrated along with chronic right lung volume loss. Pulmonary edema versus multifocal pneumonia remain the differential considerations. 3. Cardiomegaly with unchanged pleural effusions.
[2019-11-01] MEDS: SODIUM BICARBONATE 650 MG TAB PO SCH (11:39)
[2019-11-01] MEDS: MYCOPHENOLATE SUSP 200 MG/1 ML PO SCH ×2 (11:46→20:01)
--- NOTE | 2019-11-01 12:47 | Pharmacy Report ---
Pharmacy Abx Dose Short Note - Date of Service November 01, 2019 - Assessment & Plan Assessment 78 year old M receiving vancomycin/zosyn empirically. Gram positive cocci in clusters/gram positive bacilli growing in one bcx. Patient also ordered bactrim, doxycycline, posaconazole, tobramycin nebs, and acyclovir, which are continued as able as post transplant prophylaxis. Day # 2 of antimicrobial therapy. Plan Vancomycin * Random level of 20.4 mcg/mL after 1750mg load given after dialysis yesterday * Redose with 750 mg IV this evening after HD completion * Goal trough level : 15 to 20 mcg/mL * Random level ordered for: 11/02/19 with AM labs Pharmacy will continue to follow and will adjust dose/frequency as necessary. Thank you.
--- NOTE | 2019-11-01 17:11 | Cardiology Progress Note ---
Date of Service November 01, 2019 Assessment & Plan (1) Acute hypoxemic respiratory failure: (2) ESRD (end stage renal disease) on dialysis: (3) Elevated troponin: (4) Deep vein thrombosis, upper right extremity: (5) Lung transplant recipient: (6) Atrial fibrillation: (7) CHF (congestive heart failure): (8) CAD (coronary artery disease): Mr. London is now requiring mechanical support for hypoxia. He is to receive his second dialysis treatment this afternoon with a goal of removing 2 L. We will continue to follow his volume status clinically. I do not see any active cardiac component to this episode Subjective Patient seen and examined, medical records reviewed and case discussed with critical care attending. Unfortunately, the patient's hypoxia continued to worsen and required intubation overnight. He did undergo his first dialysis treatment yesterday and is scheduled for second 1 today. He did not voice any complaints of chest pain or palpitations prior to intubation as per report. Telemetry reviewed: Atrial fibrillation rate controlled. Review of Systems Review of Systems: All systems reviewed & are unremarkable except as noted in HPI & below Physical Exam Physical Exam: General: Intubated and sedated no acute distress HEENT: Normocephalic, atraumatic. Pupils equal, round and reactive to light and accommodation. Extraocular muscles are intact. Anicteric sclera. Moist mucous membranes. Neck: No JVD. No bruit. Cardiovascular: irregularly irregular, unable to appreciate murmur, rub or gallop. Pulmonary: Clear to auscultation bilaterally. No rales, rhonchi, or wheezing. Abdomen: Bowel sounds x 4, soft. No rebound, guarding or tenderness. No organomegaly. Extremities: No clubbing, cyanosis or edema. +2 pedal pulses bilaterally. Skin: Warm and dry. Results & Data Vital Signs (Past 12 Hours) Vital Signs Temp Pulse Pulse Pulse Resp BP Pulse Ox 11/01/19 16:40 64 123/51 L 11/01/19 16:20 60 119/51 L 11/01/19 16:00 54 L 115/49 L 11/01/19 15:40 60 124/62 11/01/19 15:15 35.8 C L 63 63 123/49 L 11/01/19 15:08 63 63 18 98 11/01/19 13:20 58 L 123/54 L 98 11/01/19 13:05 53 L 118/57 L 97 11/01/19 13:00 53 L 98 11/01/19 12:50 58 L 129/53 L 98 11/01/19 12:35 57 L 122/53 L 98 11/01/19 12:30 59 L 98 11/01/19 12:21 56 L 98 11/01/19 12:20 55 L 121/54 L 98 11/01/19 12:04 64 126/55 L 98 11/01/19 12:00 58 L 98 11/01/19 11:50 59 L 119/56 L 97 11/01/19 11:34 57 L 127/59 L 98 11/01/19 11:30 61 98 11/01/19 11:20 55 L 116/50 L 97 11/01/19 11:05 56 L 122/51 L 98 11/01/19 11:00 53 L 98 11/01/19 10:51 58 L 18 97 11/01/19 10:50 52 L 57 L 18 124/47 L 97 11/01/19 10:34 54 L 121/49 L 98 11/01/19 10:30 61 97 11/01/19 10:20 58 L 116/57 L 98 11/01/19 10:05 57 L 118/45 L 98 11/01/19 10:00 51 L 97 11/01/19 09:49 58 L 120/49 L 98 11/01/19 09:34 55 L 117/47 L 97 11/01/19 09:30 64 97 11/01/19 09:19 60 122/55 L 97 11/01/19 09:05 57 L 121/50 L 97 11/01/19 09:00 62 98 11/01/19 08:49 63 126/54 L 98 11/01/19 08:35 55 L 124/52 L 97 11/01/19 08:30 55 L 97 11/01/19 08:19 60 112/48 L 97 11/01/19 08:04 56 L 115/47 L 97 11/01/19 08:00 54 L 97 11/01/19 07:49 47 L 119/51 L 97 11/01/19 07:34 47 L 116/56 L 97 11/01/19 07:30 57 L 97 11/01/19 07:19 60 121/50 L 98 11/01/19 07:16 18 11/01/19 07:15 56 L 18 97 11/01/19 07:04 58 L 115/51 L 98 11/01/19 07:00 58 L 98 11/01/19 06:49 56 L 109/48 L 98 11/01/19 06:34 59 L 114/48 L 99 11/01/19 06:30 52 L 99 11/01/19 06:19 52 L 108/54 L 99 11/01/19 06:04 56 L 120/53 L 99 11/01/19 06:00 53 L 99 11/01/19 05:58 60 22 98 11/01/19 05:50 52 L 113/57 L 98 11/01/19 05:30 53 L 99 11/01/19 05:20 59 L 128/56 L 98 (1) CAD (coronary artery disease) Associated angina: without angina Coronary Disease-Associated Artery/Lesion type: [place] artery [place] vs. transplanted heart: [place] heart Qualified Code(s): I25.10 - Atherosclerotic heart disease of [place] coronary artery without angina pectoris (2) CHF (congestive heart failure) Heart failure chronicity: unspecified Heart failure type: unspecified Qualified Code(s): I50.9 - Heart failure, unspecified (3) Atrial fibrillation Atrial fibrillation type: paroxysmal Qualified Code(s): I48.0 - Paroxysmal atrial fibrillation
--- NOTE | 2019-11-01 18:29 | Procedure Note ---
Procedure Note Date of Service November 01, 2019 PREOPERATIVE DIAGNOSIS: Left lung infiltrate in immunocompromised patient POSTOPERATIVE DIAGNOSIS: Left lung infiltrate in immunocompromised patient PROCEDURE PERFORMED: Flexible fiberoptic bronchoscopy with bronchoalveolar lavage COMPLICATIONS: None. INDICATION: Left lung infiltrate in immunocompromised patient rule out infection PROCEDURE: After obtaining an informed consent from patient's . Patient was already intubated. On propofol 45mcg/kg/hr, 25 MCG of fentanyl was given. Bronchoscope was passed through the ET tube without any difficulty. The trachea appeared normal.there was mucosal atrophy appreciated. Blood was appreciated going up from the ET tube into bilateral bronchi. The bronchoscope was then advanced through the yung, which was sharp. The scope was then advanced into the right main stem and each segment, subsegement in the right upper lobe, right middle lobe and right lower lobe were visualized. There was small amounts of bloody secretions noted. The bronchoscope was subsequently withdrawn and advanced into the left m ainstem. Suture line was appreciated in the left main bronchus, each segment and subsegment was well visualized. No specific masses or other lesions were identified throughout the tracheobronchial tree on the left. There was a small amount of bloody secretion was appreciated. The bronchoscope was then wedged in the left lower lobe and bronchoalveolar lavage samples were obtained. 120 ml of saline was instilled and 60 ml of fluid was aspirated back.The bronchoscope was withdrawn and the area was suctioned clear. The bronchoscope was then withdrawn to the mainstem. The area was suctioned cl ear. The bronchoscope was then withdrawn. The patient tolerated the procedure well without evidence of desaturation or complications. On withdrawing the bronchoscope from the ET tube it was appreciated that patient had some clot on the posterior aspect of the trachea. The bleeding is most likely coming from intubation. Bronchoalveolar lavage samples were sent for cell count, Gram stain and bact erial culture, AFB culture and smear, fungal culture and smear, Beta glucan, Aspergillus antigen and histoplasma antigen. Recommendations: Follow-up culture. Coding CPT Codes Pulmonary/Thoracic - Pulmonary and Thoracic: 20637 Dx bronchoscopy/BAL ([id number]) [facility] [place] Procedure Codes (Charges) Pulmonary/Thoracic Procedure 1: Pulmonary and Thoracic: 85050 Dx bronchoscopy/BAL
--- NOTE | 2019-11-01 18:48 | XRay Report ---
XR chest 1V portable CLINICAL HISTORY: s/p bronch COMPARISON STUDY: 11/01/2019 FINDINGS: The heart is enlarged. There are bilateral pleural effusions. There are extensive bilateral pulmonary airspace opacities. There is a large right apical bulla. No pneumothorax is visualized. Th ere is an endotracheal tube 5 cm above the yung. There is a nasogastric tube which passes into the stomach.[ IMPRESSION: 1. No evidence of pneumothorax 2. Extensive bilateral pulmonary airspace opacities 2. Bilateral pleural effusions 4. Large right apical bulla ACT 112: Negative or not required by law. Electronically signed by: Bon Ariza M.D. 11/01/2019 6:46 PM
[2019-11-01 18:57] LABS: Eosinophil Body Fluid Man 1 %; Fluid Mono/Macrophage 56 %; Lymphocyte Body Fluid Man 14 %; Neutrophil Body Fluid Man 29 %
[2019-11-01] MEDS: BUMETANIDE 4 MG in SYRINGE 0 ML IV SCH (19:56)
[2019-11-01] MEDS: ROSUVASTATIN CALCIUM 20 MG TAB PO SCH (19:57)
[2019-11-01] MEDS ORDERED: VANCOMYCIN HCL 750 MG in SODIUM CHLORIDE 0.9% 250 ML IV SCH (20:00)
--- NOTE | 2019-11-01 22:11 | Ultrasound Report ---
US hemodialysis access CLINICAL HISTORY: AVF malfunction evaluate for stenosis COMPARISON STUDY: January 2019 FINDINGS: There is a right upper extremity AV fistula. The fistula appears to involve the radial drea ry cephalic vein. The anastomosis appears patent without evidence of stenosis. There is scattered thrombus throughout the cephalic venous outflow. There are 2 areas of venous outfl ow stenosis within the mid forearm with velocities of 620 cm/s, and 657 cm/s. IMPRESSION: 1. Right forearm dialysis AV fistula. The anastomosis is patent without evidence of anastomotic steno sis 2. There are 2 areas of cephalic vein outflow stenosis. There is scattered thrombus throughout the ce phalic vein venous outflow. ACT 112: Negative or not required by law. Electronically signed by: Bon Ariza M.D. 11/01/2019 10:10 PM
[2019-11-02] MEDS: INSULIN ASPART 100 UNITS/ML 3 ML PEN SC SCH ×4 (00:03→18:11)
[2019-11-02] MEDS: propofoL 1,000 MG/100 ML VIAL IV SCH ×5 (00:04→06:14)
[2019-11-02 04:35] LABS: Hematocrit (blood only) 23.3 % (42-52); Hemoglobin 7.7 g/dL (14.0-18.0); Mean Corpuscular Hemoglobin 35.5 pg (25-34); Mean Corpuscular Volume 107.4 fL (80-100); Mean Platelet Volume 11.9 fL (7.4-10.4); Nucleated RBC # (auto) 0.13 K/uL (0-0); Nucleated RBC % (auto) 1.2 %; Platelet Count 136 K/uL (130-400); RDW Coefficient of Variation 16.7 % (11.5-14.5); Red Blood Count 2.17 M/uL (4.7-6.1)
[2019-11-02 04:44] LABS: INR 3.3 (0.9-1.1); Prothrombin Time 33.1 Seconds (9.0-12.0)
[2019-11-02 05:21] LABS: BUN Creatinine Ratio 14.4 (10-20); Creatinine Clr Calc Pharmacy 10.8 ml/min; Est GFR (African American) 9.1; Est GFR (Non-African American) 7.8; Magnesium 2.1 mg/dl (1.8-2.4); Phosphorus 5.4 mg/dl (2.5-4.9); Potassium 3.9 mmol/L (3.5-5.1)
[2019-11-02 05:50] LABS: iSTAT Allen Test Pass; iSTAT Arterial Blood Gas HCO3 18 meg/L (19-24); iSTAT Arterial Blood Gas pCO2 28 mmHg (35-46); iSTAT Arterial Blood Gas pH 7.42 (7.35-7.45); iSTAT Arterial Blood Gas pO2 111 mmHg (80-95); iSTAT Carbon Dioxide 19 mmol/L (24-31); iSTAT FiO2 40 %; iSTAT Site L Brachial
[2019-11-02] MEDS: ALBUT/IPRATROP 3MG/0.5MG NEB 3 ML VIAL NEB SCH ×4 (07:04→19:14)
[2019-11-02] MEDS: TOBRAMYCIN SULFATE INH SCH ×2 (07:04→19:14)
--- NOTE | 2019-11-02 07:05 | XRay Report ---
XR chest 1V portable HISTORY: 78 years-old Male resp failure acute respiratory failure COMPARISON: Chest radiograph 11/01/2019, chest CT 09/27/2019 TECHNIQUE: Portable AP view of the chest FINDINGS: Endotracheal tube overlies the midline, 3.2 cm superior to the yung. Enteric tube distal tip projec ts over the left location of the proximal gastric body. Cardiomegaly. Chronic right lung volume loss with large bulla of the right upper lung. Unchanged pleural effusions with extensive bilateral mixed interstitial and alveolar opacities. Slightly improved aeration of the left lung. No pneumothorax. De generative changes of the shoulders and spine. Convex left curvature of the lower thoracic spine. IMPRESSION: 1. Lines and tubes as above. 2. Extensive bilateral mixed interstitial and alveolar opacities redemonstrated with slightly improve d aeration of the left lung. 3. No pneumothorax. 4. Unchanged pleural effusions. ACT 112: Negative or not required by law. The above report was generated using voice recognition software. It may contain grammatical, syntax o r spelling errors. Electronically signed by: Nathaniel Dan M.D. 11/02/2019 7:04 AM
--- NOTE | 2019-11-02 08:06 | Critical Care Progress Note ---
Date of Service November 02, 2019 Assessment & Plan (1) Acute hypoxemic respiratory failure: Patient blood culture has been positive for gram-positive bacilli. Repeat blood culture from [id number] male with past medical history of unilateral left-sided lung transplant on immunosuppressive medication along with antiviral and antibiotics, systolic CHF ejection fraction 35%, dyslipidemia, hypertension, COPD was admitted to hospital because of worsening shortness of breath and hypoxia found in the ED. ICU was consulted for hypoxic respiratory failure as patient was requiring 15 L of nasal cannula still saturating in the high 80s. EKG 10/30/2019: Poor quality. A. fib with bradycardia, left axis deviation, no ST-T wave changes appreciated. -- VDRF sec Acute Hypoxic respiratory failure Rule out pneumonia, status post bronchoscopy 11/01/2019, follow-up cultures Atypical pulmonary edema can present this way especially in a patient who had lung transplant on the left with history of systolic CHF and end-stage renal disease c/w broad-spectrum antibiotic with atypical coverage Follow-up septic work-up, influenza negative, Covid-19 PCR negative, MRSA negative ESR:28, CRP: 2.22, Procalcitonin: 0.08 Continue with ventilatory support Keep RASS -1 Daily sedation holidays and SBT's Chlorhexidine mouthwash --Bacteremia Blood culture growing gram-positive bacilli Could be Listeria versus Clostridium We will continue with Zosyn for the time being, follow-up sensitivity --CKD now end-stage renal disease Started on hemodialysis 10/31/2019. Ultrasound of the right AV fistula shows 2 areas of cephalic vein outflow stenosis along with scattered thrombus. Vascular surgery has been consulted. Nephrology on board -- HAGMA Delta-delta: Less than 1 Gap plus non-gap, gap likely from elevated BUN, could be from CKD Monitor --Elevated troponin Likely secondary to type II [place] EKG shows no ST-T wave changes Monitor Cardiology on board --Prolonged QTC Could be from the use of beta-cally Will hold beta-blockers for the time being If the patient gets symptomatic we will give him glucagon Avoid QT prolonging medication. 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 Patient is on chronic immunosuppressive therapy with chronic antibiotic along with chronic prednisone 5 mg Mycophenolate and tacrolimus along with acyclovir, azithromycin, Bactrim and tobramycin inhaled Would continue it for the time being Dosing of the immunosuppressive medication as well as antibiotic needs to be adjusted as the patient has ESRD Transplant doctor at [facility] has been reached by the hospitalist will follow recommendation --Systolic CHF Ejection fraction 30-35% on echo done 09/28/2019 Plan as above --COPD Not in acute exacerbation Continue with inhaled bronchodilators --A. fib chronic On chronic warfarin at home Keep INR between 2-3 --Hypertension with dyslipidemia Continue with blood pressure medications Continue with statin --Prophylaxis GI: Protonix DVT: Warfarin (on hold) Diet: Cardiorenal IV: Peripheral, right arm AV fistula Plan: In-N-Out: -600 AB.42/28/111 on 40% FiO2 and PEEP of 6 Patient is making good amount of urine with bumetanide 4 mg IV every 12 hours. Case was discussed with nephrology patient, will continue with diuretics. Patient will go for revision of the AV fistula tomorrow as there are multiple clots appreciated on the ultrasound. Blood culture growing gram-positive bacilli. We will repeat blood culture today. INR today is 3.3. Hold warfarin for the time being. Case was discussed with the hospitalist to get in touch with the transplant doctor so that we can manage and make changes to the immunosuppressive medication given that the patient is end-stage renal disease now. Patient is doing well on ventilator we will try to extubate him today. was updated regarding the current condition of the patient. I have personally spent 37 minutes of critical care time in the direct management of this patient. This is a life/limb threatening event. This includes time spent evaluating patient, direct bedside care, chart review, placing orders, interpretation of diagnostic studies, discussion with consultants, patient, and family members, as well as other required patient management activities. This time is exclusive of all separately billable procedures, and teaching time and separate from and in addition to any other critical care service time. Please note the above document was generated using voice recognition software. It may contain grammatical, syntax or spelling errors. (2) ESRD (end stage renal disease) on dialysis: (3) Lung transplant recipient: (4) CHF (congestive heart failure): (5) Chronic a-fib: Admission and Anticipated Discharge Date Admission Date: October 30, 2019 Subjective Patient seen and examined at bedside. No acute distress, no adverse events overnight Patient was on propofol 35 at the time of examination. Breathing over the vent. NIF -22 Afebrile Review of Systems Review of Systems: Unobtainable due to endotracheal tube Physical Exam Physical Exam: Constitutional: Intubated HEENT: EOMI, PERRLA, right eye prosthetic Respiratory system: Decreased air entry bilaterally, positive crackles bilateral lower lobes, no wheeze, no rhonchi CVS: S1-S2 positive, no murmurs or gallops, positive 2 out of 6 holo-systolic murmur best appreciated at the aorta Abdomen: Soft, nontender, nondistended, positive bowel sounds x4 Extremities: +2 pulses bilaterally radialis/ dorsalis pedis, no cyanosis, no edema, no clubbing, right forearm AV fistula Neuro: RASS -1 Psych: Unable to assess G/U: Positive Skin: no rashes, warm and dry Lymphatic: no cervical or axillary lymphadenopathy Results & Data Results & Data ([facility]) Vital Signs (Past 12 Hours) Vital Signs Pulse Pulse Resp BP Pulse Ox 11/02/19 07:17 67 137/58 L 98 11/02/19 06:56 69 19 98 11/02/19 06:16 68 144/55 H 97 11/02/19 06:00 64 97 11/02/19 05:30 81 99 11/02/19 05:17 69 20 131/61 98 11/02/19 05:00 74 99 11/02/19 04:30 79 98 11/02/19 04:17 74 146/59 H 98 11/02/19 04:00 77 98 11/02/19 03:30 75 97 11/02/19 03:26 78 135/56 L 98 11/02/19 03:17 68 135/56 L 98 11/02/19 03:00 69 98 11/02/19 02:30 76 98 11/02/19 02:20 70 19 97 11/02/19 02:17 67 127/55 L 97 11/02/19 02:00 70 97 11/02/19 01:30 70 97 11/02/19 01:17 75 143/59 H 97 11/02/19 01:00 70 97 11/02/19 00:30 71 97 11/02/19 00:17 71 140/58 L 97 11/02/19 00:00 72 97 11/01/19 23:52 67 144/61 H 97 11/01/19 23:50 72 21 97 11/01/19 23:30 63 98 11/01/19 23:23 66 130/52 L 98 11/01/19 23:00 67 99 11/02/19 04:14 11/02/19 04:14 Coding Level of Care Code Critical Care 1st 30-74 mins Diagnoses Acute hypoxemic respiratory failure J96.01 ESRD (end stage renal disease) on dialysis N18.6; Z99.2 Lung transplant recipient Z94.2 CHF (congestive heart failure) I50.9 Heart failure chronicity: unspecified Heart failure type: unspecified Chronic a-fib I48.2 Time Spent (min) 37 (1) CHF (congestive heart failure) Heart failure chronicity: unspecified Heart failure type: unspecified Qualified Code(s): I50.9 - Heart failure, unspecified
--- NOTE | 2019-11-02 08:43 | Consultation ---
Date of Consultation November 02, 2019 Assessment & Plan (1) Dialysis AV fistula malfunction: This point we recommended a fistulogram with possible intervention. History of Present Illness Reason for Consultation: Malfunctioning right forearm fistula Attending Physician: Preethi Chand MD History of Present Illness This is a 78-year-old male with end-stage renal disease on hemodialysis using a right forearm fistula. This is a [place] fistula. He is found to have poor flows through the fistula. Ultrasound done of the fistula showed at least 2 stenoses as well as mural thrombus. The patient is on a ventilator at this time for respiratory insufficiency. There is a plan to have him extubated later today. Allergies Allergy/AdvReac Type Severity Reaction Status Date / Time levofloxacin Allergy Intermediate ANAPHYLAXIS Verified 10/30/19 23:01 oxycodone Allergy Intermediate ANAPHYLAXIS Verified 10/30/19 23:01 cat dander Allergy Unknown CHEST Verified 10/30/19 23:02 TIGHTNESS Home Medications Home Medications Medication Instructions Recorded Confirmed Type albuterol sulfate 2.5 mg CONTINUOUS NEBULIZATION BID 03/02/19 10/30/19 History ml clopidogrel 75 mg tablet 75 mg PO DAILY #30 tab 03/02/19 10/30/19 History doxazosin 4 mg tablet 8 mg PO HS tab 03/02/19 10/30/19 History fluoxetine 20 mg capsule 40 mg PO DAILY cap 03/02/19 10/30/19 History fluticasone 500 mcg-salmeterol 50 1 puffs INH Q12H 03/02/19 10/30/19 History mcg/dose blistr powdr for inhalation insulin lispro 100 unit/mL 0 - 140 sliding scale dose SUBCUT 03/02/19 10/30/19 History subcutaneous solution TID PRN ml magnesium chloride 71.5 mg 143 mg PO DAILY tab 03/02/19 10/30/19 History (magnesium chloride) tablet,delayed release montelukast 10 mg tablet 10 mg PO DAILY tab 03/02/19 10/30/19 History mycophenolate sodium 180 mg 180 mg PO BID tab 03/02/19 10/30/19 History tablet,delayed release pantoprazole 40 mg tablet,delayed 40 mg PO BID tab 03/02/19 10/30/19 History release rosuvastatin 40 mg tablet 40 mg PO HS #90 tab 03/02/19 10/30/19 History tacrolimus 0.5 mg capsule 0.5 mg PO BID cap 03/02/19 10/30/19 History acetaminophen [Tylenol Extra 500 mg PO Q6H PRN 04/21/19 10/30/19 History Strength] azithromycin [Zithromax] 250 mg PO 3XWK 04/21/19 10/30/19 History metoprolol succinate [Toprol XL] 100 mg PO DAILY 04/21/19 10/30/19 History omega-3 acid ethyl esters [Lovaza] 2 cap PO BID 04/21/19 10/30/19 History posaconazole [Noxafil] 300 mg PO DAILY 04/21/19 10/30/19 History prednisone 5 mg PO DAILY 04/21/19 10/30/19 History tobramycin 150 mg INHALATION Q12H 04/21/19 10/30/19 History cyclobenzaprine 5 mg tablet 5 mg PO TID PRN 07/04/19 10/30/19 History acyclovir 400 mg PO BID 09/27/19 10/30/19 History sulfamethoxazole-trimethoprim 1 tab PO 2XWK 09/27/19 10/30/19 History [Bactrim] amlodipine [Norvasc] 10 mg PO QAM 30 Days #60 tab 10/06/19 10/30/19 Rx darbepoetin nicholas in polysorbat 100 100 mcg SUBCUT WEEKLY #4 ml 10/23/19 10/30/19 Rx mcg/mL in polysorbate injection sodium bicarbonate 650 mg tablet 1,300 mg PO BID #60 tab 10/23/19 10/30/19 Rx calcitriol 0.25 mcg PO 3XWK 10/30/19 10/30/19 History furosemide [Lasix] 80 mg PO DAILY 10/30/19 10/30/19 History hydralazine 10 mg PO Q8H 10/30/19 10/30/19 History warfarin 2.5 mg PO QPM 10/30/19 10/30/19 History Patient History Medical History Arthritis (Chronic) Chronic a-fib (Chronic) Chronic anemia (Chronic) Chronic diarrhea PT HAS BEEN SEEN AND EVALUATED BY GI FOR C-DIFF (NEGATIVE). GI CONCERNED AND FEELS SCOPE IS NECESSARY CKD (chronic kidney disease) stage 5, GFR less than 15 ml/min (Chronic) Diabetes mellitus, type II (Chronic) GERD (gastroesophageal reflux disease) (Chronic) Glaucoma (Chronic) H/O: CVA (cerebrovascular accident) (Chronic) HLD (hyperlipidemia) (Chronic) HTN (hypertension) (Chronic) Hyperglycemia (Chronic) Hyperparathyroidism (Chronic) Idiopathic pulmonary fibrosis (Chronic) Mood disorder (Chronic) Myocardial infarction (Acute) Paroxysmal atrial fibrillation (Chronic) Renal lesion Squamous cell carcinoma of skin of scalp (Chronic) Thrombocytopenia (Chronic) Surgical History History of cardiac cath STENTS X2 MAY 2018 ([facility] [place] [facility] ) Hx of heart artery stent (Chronic) S/P MITCHELL to LAD and circumflex after NSTEMI in 05/2018 Lung transplant status (Chronic) S/P patent foramen ovale closure (Resolved) Family History Father , in his seventies of cancer No problems noted. Mother , age 88 of CHF No problems noted. Daughter Age: 46 No problems noted. Son Age: 45 No problems noted. Other No significant family history Social History Preferred Language: [place] Communication Ability: Effective Dowel Inspector Required: No Beliefs That Will Affect Care: None marital status: Current Living Situation: Spouse current occupational status: retired Other Information That Helps Us Care for You: No Feels Safe at Home: Yes Safety Concerns: Feels Safe At This Time Smoking Status: Former smoker Tobacco Type: cigarettes ; Cigarettes Per Day: HX OF BRIEF SOCIAL USE WHILE IN , QUIT 45 YEARS AGO ; Do You Dip or Chew Tobacco: No ; Smoking End Date: 35 years ago ; Second Hand Exposure: No ; Tobacco Cessation Education Requested by Patient: No Hx Alcohol Use: Yes Alcohol type: hard liquor Hx Substance Use: No caffeine: Yes (1 cup in am) Review of Systems Review of Systems: Review of systems unobtainable due to the patient being sedated on the ventilator. Physical Exam Constitutional: Patient is sedated Respiratory: Auscultation: + diminished lung sounds Cardiovascular: Rate/Rhythm: regular rate and regular rhythm Extremities: + AV fistula (There is a fistula in his right forearm. It appears to be pulsatile with no thrill felt. It is patent however.) Gastrointestinal (Abdomen): Inspection/Auscultation: abdomen not distended Percussion/Palpation: abdomen soft Neurologic: Patient is on a ventilator and sedated. Results & Data Vital Signs (Past 12 Hours) Vital Signs Pulse Pulse Resp BP Pulse Ox 11/02/19 07:17 67 137/58 L 98 11/02/19 06:56 69 19 98 11/02/19 06:16 68 144/55 H 97 11/02/19 06:00 64 97 11/02/19 05:30 81 99 11/02/19 05:17 69 20 131/61 98 11/02/19 05:00 74 99 11/02/19 04:30 79 98 11/02/19 04:17 74 146/59 H 98 11/02/19 04:00 77 98 11/02/19 03:30 75 97 11/02/19 03:26 78 135/56 L 98 11/02/19 03:17 68 135/56 L 98 11/02/19 03:00 69 98 11/02/19 02:30 76 98 11/02/19 02:20 70 19 97 11/02/19 02:17 67 127/55 L 97 11/02/19 02:00 70 97 11/02/19 01:30 70 97 11/02/19 01:17 75 143/59 H 97 11/02/19 01:00 70 97 11/02/19 00:30 71 97 11/02/19 00:17 71 140/58 L 97 11/02/19 00:00 72 97 11/01/19 23:52 67 144/61 H 97 11/01/19 23:50 72 21 97 11/01/19 23:30 63 98 11/01/19 23:23 66 130/52 L 98 11/01/19 23:00 67 99
[2019-11-02] MEDS: INSULIN GLARGINE SOLOSTAR 100 UNITS/ML 3 ML PEN SC SCH (08:48)
[2019-11-02] MEDS: BUMETANIDE 4 MG in SYRINGE 0 ML IV SCH ×2 (08:57→17:04)
[2019-11-02] MEDS: AMLODIPINE BESYLATE 5 MG TAB PO SCH ×2 (08:58→10:19)
[2019-11-02] MEDS: ACYCLOVIR 200 MG CAP PO SCH ×2 (08:59→09:53)
[2019-11-02] MEDS: SULFA/TRIMETH 400/80MG TAB PO SCH (08:59)
[2019-11-02] MEDS: PANTOprazole 40 MG in SYRINGE 0 ML IV SCH ×2 (09:00→22:05)
[2019-11-02] MEDS: predniSONE 5 MG TAB PO SCH ×2 (09:00→10:20)
[2019-11-02] MEDS: CLOPIDOGREL BISULFATE 75 MG TAB PO SCH ×2 (09:00→10:20)
[2019-11-02] MEDS: FLUTICASONE/VILANTEROL 100/25MCG 14 PUFFS/INHALER INH SCH (09:07)
[2019-11-02] MEDS: DOXYCYCLINE HYCLATE 100 MG in DEXTROSE 5% 100 ML IV SCH ×2 (10:09→22:04)
[2019-11-02] MEDS: PIPERACILLIN/TAZOBACTAM 3.375 GM in DEXTROSE 5% 100 ML IV SCH ×2 (10:19→22:04)
[2019-11-02] MEDS: ACYCLOVIR SUSP 200 MG/5 ML UDP PO SCH ×2 (10:19→20:52)
[2019-11-02] MEDS: MYCOPHENOLATE SUSP 200 MG/1 ML PO SCH ×2 (10:19→20:52)
--- NOTE | 2019-11-02 10:59 | Nephrology Progress Note ---
Date of Service November 02, 2019 Assessment & Plan (1) ESRD (end stage renal disease) on dialysis: Abdi has ESRD due to multifactorial etiology including OLIVIER, tobramycin, HTN and DM. Has mature right radiocephalic AV fistula. Has hypertension which seems to be well controlled, on labetalol and doxazosin, has not been on CRISSY- inhibitor/ARB. History of diabetes without retinopathy, on insulin. He has been on PPI and Tobramycin for long time for his lung transplant. No history of NSAID use. Had 1st dialysis treatment on 10/31/2019, had 600 mL UF and had 1 hour 45 minutes treatment. Second dialysis treatment was complicated by high venous pressure and had less than 1 hour dialysis. Doppler showed cephalic vein stenosis. But responding to Bumex 4 mg twice a day. --plan for fistulogram and angioplasty tomorrow then dialysis after. --continue on Bumex 4 mg twice a day, as urine output improved, volume status better, hopefully he will be extubated this afternoon --outpatient dialysis at [facility] starting next Wednesday and continue on Wednesday --will start on phosphate binder and Renal Cap once extubated and starts p.o. intake --right arm nephrology precaution --epogen 22020 units x1 dose given on 10/31/2019 --Venofer 200 mg today Will follow (2) Anemia secondary to renal failure: (3) Hyperparathyroidism: (4) HTN (hypertension): (5) Lung transplant status: (6) Diabetes mellitus, type II: Admission and Anticipated Discharge Date Admission Date: October 30, 2019 Phyllis Dunn was seen and examined in ICU this morning. He remains intubated however awake and just started on CPAP. Vital signs stable. Oxygen requirement improved, AV fistula is having stenosis and thrombosis, plan for fistulogram, angioplasty and thrombectomy tomorrow. Responding to Bumex 4 mg IV twice a day with decent urine output. Hemoglobin slightly low at 7.6, electrolyte acceptable. Review of Systems Review of Systems: Unobtainable due to endotracheal tube Physical Exam Constitutional: + ill appearing Awake, remained intubated on CPAP Respiratory: no respiratory distress Auscultation: + crackles Cardiovascular: Rate/Rhythm: regular rate and regular rhythm Heart Sounds: normal S1 and normal S2 Extremities: no edema Results & Data ([facility]) Vital Signs (Past 12 Hours) Vital Signs Pulse Pulse Resp BP Pulse Ox 11/02/19 10:46 75 23 96 11/02/19 09:13 75 19 96 11/02/19 09:12 76 19 98 11/02/19 07:17 67 137/58 L 98 11/02/19 06:56 69 19 98 11/02/19 06:16 68 144/55 H 97 11/02/19 06:00 64 97 11/02/19 05:30 81 99 11/02/19 05:17 69 20 131/61 98 11/02/19 05:00 74 99 11/02/19 04:30 79 98 11/02/19 04:17 74 146/59 H 98 11/02/19 04:00 77 98 11/02/19 03:30 75 97 11/02/19 03:26 78 135/56 L 98 11/02/19 03:17 68 135/56 L 98 11/02/19 03:00 69 98 11/02/19 02:30 76 98 11/02/19 02:20 70 19 97 11/02/19 02:17 67 127/55 L 97 11/02/19 02:00 70 97 11/02/19 01:30 70 97 11/02/19 01:17 75 143/59 H 97 11/02/19 01:00 70 97 11/02/19 00:30 71 97 11/02/19 00:17 71 140/58 L 97 11/02/19 00:00 72 97 11/01/19 23:52 67 144/61 H 97 11/01/19 23:50 72 21 97 11/01/19 23:30 63 98 11/01/19 23:23 66 130/52 L 98 11/01/19 23:00 67 99 PG Care Time/CCT Total # of Minutes Spent Total Time Spent with Patient: Total time spent is greater than 50% in coordination of care (as documented) at patient's floor/unit and/or counseling patient: Coding Level of Care Code 18769 Subseq Hosp Care Lvl 3 Diagnoses ESRD (end stage renal disease) on dialysis N18.6; Z99.2 Anemia secondary to renal failure D63.1 Hyperparathyroidism E21.3 HTN (hypertension) I10 Hypertension type: unspecified Lung transplant status Z94.2 Diabetes mellitus, type II E11.9 (1) HTN (hypertension) Hypertension type: unspecified Qualified Code(s): I10 - Essential (primary) hypertension
--- NOTE | 2019-11-02 12:11 | Pharmacy Report ---
Pharmacy Abx Dose Short Note - Date of Service November 02, 2019 - Assessment & Plan Assessment 78 year old M receiving vancomycin/zosyn empirically. Now growing gram positive cocci in clusters and gram positive bacilli in one set of blood cxs. CMV, fungal studies pending. No HD planned for today. Day # 3 of antimicrobial therapy. Plan Vancomycin * Random level today of 24.7 mcg/mL * Will NOT redose today. Redose pending further HD plans. * Random level ordered for: 11/03/19 with AM labs Pharmacy will continue to follow and will adjust dose/frequency as necessary. Thank you.
--- NOTE | 2019-11-02 13:04 | Hospitalist Progress Note ---
Date of Service November 02, 2019 Assessment & Plan (1) Acute hypoxemic respiratory failure: Acute respiratory failure with hypoxia Required mechanical ventilation, Currently extubated to BIPAP Secondary to pulmonary edema Other possibilities include pneumonia Volume overload in setting of Acute Systolic CHF, ESRD, IPF CXR:Increasing left lung infiltrates concerning for worsening pneumonia in the transplanted left lung. Chronic right mid to basilar infiltrates compatible with chronic interstitial lung disease. Involvement of pneumonia may also be present. 3. Suspected right pleural effusion. Cardiomegaly. Some degree of volume overload or congestive change is difficult to exclude. COVID-19 screen and influenza screen are negative Protocol is 0.08. WBC increased to 15 yesterday. Likely reactive. Down to 10 today Had bronchoscopy yesterday. Cultures pending Follow-up blood cultures Currently on empiric antibiotics environmental safety specialist recommendations appreciated. Monitor respiratory status on BIPAP Continue diuretics. Currently on bumex Monitor I/O Had some AVF issues. Vascular surgery plans for fistulogram tomorrow (2) Afib (3) Bradycardia ? SSS Prolonged QTC Beta-cally on hold Bradycardia has resolved for now Monitor on telemetry Avoid QTC prolonging meds Cardiology evaluation noted (4) Supratherapeutic INR H/O DVT INR was 3.3 on admission, peaked at 3.6 Currently 3.3 today. Continue to hold coumadin for now and monitor INR (5) ESRD H/O OLIVIER, Tobramycin, HTN, DM H/O diabetic retinopathy Tool Coordinator recommendation appreciated Plan for fistulogram tomorrow to assess AVF as mentioned aove Avoid nephrotoxic agents as able Monitor electrolytes and renal function (6) Elevated Troponin In setting of end-stage renal disease, CHF Likely demand ischemia EKG showed no signs of acute ischemia Corn Breeder evaluation noted (7) H/O CAD S/P Stent Metoprolol XL on hold due to bradycardia Continue Statin and plavix (8) Idiopathic Pulmonary Fibrosis S/P left lung transplantation in 2012 H/O post transplant lymphoproliferative disorder Follows with [facility] transplant Center Continue immunosuppressive/antimicrobial suppression regimen I discussed with Patient [facility] Coordinator Ms. Mari Teixeira on 11/01/19 Contact NO:[phone] Current medications have been adjusted appropriately for renal function She did state that if we ever need to speak to transplant physician glue bone crusher to call [phone] [place] on [facility] lung transplant team on 11/02/2019. I updated him on patient care and new HD. He recommend to continue with home dose of antibiotic/antirejection meds, to continue current dose of acyclovir and to get tacro trough level on Wednesday. Plan to call them again prior to discharge (9) DM 2 Hb A1C: 5.24 September 2019 Continue Insulin therapy Monitor BGs DVT Px: Coumadin still on hold as above Code Status Full code Disposition Continue ICU care Call to patient for updates today were unanswered. Will try again later Admission and Anticipated Discharge Date Admission Date: October 30, 2019 Subjective Pt seen and examined shortly after extubation Currently on BIPAP Review of Systems Review of Systems: Unable to obtain due to BIPAP Physical Exam Constitutional: Patient is awake, on BIPAP ENMT: Currently on BIPAP Respiratory: Reduced breath sounds bilaterally Bilateral basal crackles Cardiovascular: Irregularly irregular pulse, S1 S2 Gastrointestinal (Abdomen): normal bowel sounds, soft, nontender, no hepatosplenomegaly Neurologic: Alert in no obvious distress, moves extremities Results & Data Results [facility] Data ([facility]) Vital Signs (Past 12 Hours) Vital Signs Pulse Pulse Resp BP Pulse Ox 11/02/19 11:43 75 21 96 11/02/19 11:17 73 152/66 H 96 11/02/19 11:03 71 11/02/19 10:46 75 23 96 11/02/19 10:17 76 148/65 H 93 11/02/19 09:17 66 152/70 H 96 11/02/19 09:13 75 19 96 11/02/19 09:12 76 19 98 11/02/19 07:17 67 137/58 L 98 11/02/19 06:56 69 19 98 11/02/19 06:16 68 144/55 H 97 11/02/19 06:00 64 97 11/02/19 05:30 81 99 11/02/19 05:17 69 20 131/61 98 11/02/19 05:00 74 99 11/02/19 04:30 79 98 11/02/19 04:17 74 146/59 H 98 11/02/19 04:00 77 98 11/02/19 03:30 75 97 11/02/19 03:26 78 135/56 L 98 11/02/19 03:17 68 135/56 L 98 11/02/19 03:00 69 98 11/02/19 02:30 76 98 11/02/19 02:20 70 19 97 11/02/19 02:17 67 127/55 L 97 11/02/19 02:00 70 97 11/02/19 01:30 70 97 11/02/19 01:17 75 143/59 H 97 Laboratory Results Short CBC 11/02/19 Range/Units 04:14 WBC 10.80 (4.8-10.8) K/uL Hgb 7.7 L (14.0-18.0) g/dL Hct 23.3 L (42-52) % Plt Count 136 (130-400) K/uL BMP 11/02/19 04:14 Sodium 138 Potassium 3.9 Chloride 106 Carbon Dioxide 20 L BUN 90 H Creatinine 6.30 H* D Glucose 143 H Calcium 8.0 L
--- NOTE | 2019-11-02 13:38 | Cardiology Progress Note ---
Date of Service November 02, 2019 Assessment & Plan (1) Acute hypoxemic respiratory failure: (2) ESRD (end stage renal disease) on dialysis: (3) Elevated troponin: (4) Deep vein thrombosis, upper right extremity: (5) Lung transplant recipient: (6) Atrial fibrillation: (7) CHF (congestive heart failure): (8) CAD (coronary artery disease): Mr. London is now requiring mechanical support for hypoxia. He is to receive his second dialysis treatment this afternoon with a goal of removing 2 L. We will continue to follow his volume status clinically. I do not see any active cardiac component to this episode We will sign off. Please call with questions or concerns. Subjective Patient seen and examined, medical records reviewed. Successfully extubated and placed on BiPAP currently tolerating and saturating well. Telemetry reviewed: Atrial fibrillation rate controlled Review of Systems Review of Systems: Other Unobtainable due to BiPAP. Physical Exam Physical Exam: General: Awake, alert No acute distress. Currently tolerating BiPAP HEENT: Normocephalic, atraumatic. Pupils equal, round and reactive to light and accommodation. Extraocular muscles are intact. Anicteric sclera. Moist mucous membranes. Neck: No JVD. No bruit. Cardiovascular: irregularly irregular, unable to appreciate murmur, rub or gallop. Pulmonary: Poor air movement bilaterally with bibasilar rales. No wheezing or rhonchi. Abdomen: Bowel sounds x 4, soft. No rebound, guarding or tenderness. No organomegaly. Extremities: No clubbing, cyanosis or edema. +2 pedal pulses bilaterally. Right forearm AV fistula. Skin: Warm and dry. Results & Data Vital Signs (Past 12 Hours) Vital Signs Pulse Pulse Resp BP Pulse Ox 11/02/19 11:43 75 21 96 11/02/19 11:17 73 152/66 H 96 11/02/19 11:03 71 11/02/19 10:46 75 23 96 11/02/19 10:17 76 148/65 H 93 11/02/19 09:17 66 152/70 H 96 11/02/19 09:13 75 19 96 11/02/19 09:12 76 19 98 11/02/19 07:17 67 137/58 L 98 11/02/19 06:56 69 19 98 11/02/19 06:16 68 144/55 H 97 11/02/19 06:00 64 97 11/02/19 05:30 81 99 11/02/19 05:17 69 20 131/61 98 11/02/19 05:00 74 99 11/02/19 04:30 79 98 11/02/19 04:17 74 146/59 H 98 11/02/19 04:00 77 98 11/02/19 03:30 75 97 11/02/19 03:26 78 135/56 L 98 11/02/19 03:17 68 135/56 L 98 11/02/19 03:00 69 98 11/02/19 02:30 76 98 11/02/19 02:20 70 19 97 11/02/19 02:17 67 127/55 L 97 11/02/19 02:00 70 97 (1) CAD (coronary artery disease) Associated angina: without angina Coronary Disease-Associated Artery/Lesion type: [place] artery [place] vs. transplanted heart: [place] heart Qualified Code(s): I25.10 - Atherosclerotic heart disease of [place] coronary artery without angina pectoris (2) CHF (congestive heart failure) Heart failure chronicity: unspecified Heart failure type: unspecified Qualified Code(s): I50.9 - Heart failure, unspecified (3) Atrial fibrillation Atrial fibrillation type: paroxysmal Qualified Code(s): I48.0 - Paroxysmal atrial fibrillation
[2019-11-02] MEDS: IRON SUCROSE 200 MG in 0.9 % SODIUM CHLORIDE 100 ML IV SCH (15:41)
[2019-11-02] MEDS: TACROLIMUS 0.5 MG CAP PO SCH (20:52)
[2019-11-02] MEDS: ROSUVASTATIN CALCIUM 20 MG TAB PO SCH (20:52)
[2019-11-02] MEDS ORDERED: MYCOPHENOLATE SUSP 200 MG/1 ML PO SCH (21:00)
[2019-11-03] MEDS: INSULIN ASPART 100 UNITS/ML 3 ML PEN SC SCH ×4 (00:56→17:40)
[2019-11-03 04:53] LABS: Hematocrit (blood only) 26.2 % (42-52); Hemoglobin 8.7 g/dL (14.0-18.0); Mean Corpuscular Hemoglobin 35.4 pg (25-34); Mean Corpuscular Hgb Conc 33.2 g/dL (32-36); Mean Corpuscular Volume 106.5 fL (80-100); Mean Platelet Volume 12.2 fL (7.4-10.4); Nucleated RBC # (auto) 0.09 K/uL (0-0); Nucleated RBC % (auto) 0.8 %; Platelet Count 167 K/uL (130-400); RDW Standard Deviation 64.7 fL (36.4-46.3); Red Blood Count 2.46 M/uL (4.7-6.1); White Blood Count 12.22 K/uL (4.8-10.8)
[2019-11-03 05:01] LABS: INR 2.6 (0.9-1.1); Prothrombin Time 25.9 Seconds (9.0-12.0)
[2019-11-03 05:04] LABS: Hepatitis A Antibody IgM NON-REACTIVE (NON-REACTIVE); Hepatitis B Core Antibody IgM NON-REACTIVE (NON-REACTIVE)
[2019-11-03 05:46] LABS: Albumin Level 3.2 gm/dl (3.4-5.0); BUN Creatinine Ratio 13.9 (10-20); Calcium 8.6 mg/dl (8.5-10.1); Creatinine Clr Calc Pharmacy 11.1 ml/min; Est GFR (African American) 9.4; Est GFR (Non-African American) 8.1; Magnesium 2.1 mg/dl (1.8-2.4); Potassium 3.7 mmol/L (3.5-5.1)
--- NOTE | 2019-11-03 06:57 | XRay Report ---
XR chest 1V portable CLINICAL HISTORY: 78 years-old Male presenting with respiratory failure. TECHNIQUE: Portable upright AP view of the chest was obtained. COMPARISON: 11/02/2019. FINDINGS: Interval extubation. Atherosclerosis of the aortic arch. Cardiac silhouette enlarged. Persistent dens e bilateral opacities greater on the left. Significant underlying parenchymal heterogeneity. Focal ra diolucency at the right upper lung correlates with the large bleb on CT from 09/27/2019. The baseline a ppearance degrades assessment for pneumothorax on the right. However, there is a new pleural line talisha ng the right mid region, which is new. No left pneumothorax. Small pleural effusions, right greater t olivarez left. Degenerative changes of the thoracic spine. Upper abdomen normal. IMPRESSION: 1. Interval extubation. 2. No significant change in severe bilateral pulmonary infiltrates superimposed on chronic lung dise ase. 3. Radiolucency at the right apex correlates with a large bleb, however, a pleural line is new along the right mid lung raising concern for right pneumothorax. Admittedly, the baseline bleb decreases d iagnostic accuracy for pneumothorax. Chest CT could confirm pneumothorax is clinically desired. 4. Cardiomegaly. 5. Persistent small effusions. The report will be called/faxed according to standard departmental protocol. ACT 112: Negative or not required by law. Electronically signed by: Momo Lenz M.D. 11/03/2019 6:55 AM
[2019-11-03] MEDS: ALBUT/IPRATROP 3MG/0.5MG NEB 3 ML VIAL NEB SCH ×4 (07:06→19:19)
[2019-11-03] MEDS: TOBRAMYCIN SULFATE INH SCH ×2 (07:07→19:19)
[2019-11-03] MEDS ORDERED: RAPID SEQUENCE INDUCTION BAG ONE (08:14)
[2019-11-03] MEDS: propofoL 1,000 MG/100 ML VIAL IV SCH ×4 (08:37→20:18)
[2019-11-03] MEDS ORDERED: FENTANYL BOLUS FROM BAG IV PRN (09:08)
[2019-11-03] MEDS ORDERED: STAT IV Infusion **Titration per Protocol STA (09:08)
--- NOTE | 2019-11-03 09:27 | XRay Report ---
XR chest 1V portable CLINICAL HISTORY: 78 years-old Male presenting with s/p intubation. TECHNIQUE: Portable upright AP view of the chest was obtained. COMPARISON: 11/03/2019. FINDINGS: Interval intubation with the endotracheal tube terminating in the midthoracic trachea approximately 6 cm from the yung. Atherosclerosis of the aortic arch. Cardiac silhouette enlarged. Redemonstration of the extensive radiolucency at the right upper lung compatible with the underlying large bleb/bull a. The prior suggested displaced pleural line in the mid right lung is no longer present. Presumably this is related to a skinfold. No pneumothorax. Extensive dense opacities throughout the left lung an d in the right mid to lower lung as on prior exam. Underlying heterogeneity of lung parenchyma with a multicystic reticular appearance. Small right pleural effusion, which may be loculated. Degenerative changes of the thoracic spine. Upper abdomen normal. IMPRESSION: 1. No convincing evidence of pneumothorax. The prior apparent pleural line represented a skinfold. 2. Appropriately positioned endotracheal tube. 3. No change in the dense bilateral pulmonary infiltrates superimposed on chronic lung disease. 4. Cardiomegaly. 5. Persistent right pleural effusion, which may be loculated. ACT 112: Negative or not required by law. Electronically signed by: Momo Lenz M.D. 11/03/2019 9:26 AM
[2019-11-03] MEDS: FLUTICASONE/VILANTEROL 100/25MCG 14 PUFFS/INHALER INH SCH (09:44)
[2019-11-03] MEDS ORDERED: CEFAZOLIN 1000MG 1,000 MG/7.5 ML SYR IV ONE (10:00)
[2019-11-03] MEDS: PANTOprazole 40 MG in SYRINGE 0 ML IV SCH ×2 (10:03→20:17)
[2019-11-03] MEDS: BUMETANIDE 4 MG in SYRINGE 0 ML IV SCH ×2 (10:03→17:37)
[2019-11-03] MEDS: ACYCLOVIR SUSP 200 MG/5 ML UDP PO SCH ×2 (10:03→20:19)
[2019-11-03] MEDS: MYCOPHENOLATE SUSP 200 MG/1 ML PO SCH ×2 (10:03→20:17)
[2019-11-03] MEDS: DOXYCYCLINE HYCLATE 100 MG in DEXTROSE 5% 100 ML IV SCH ×2 (10:03→20:18)
[2019-11-03] MEDS: CLOPIDOGREL BISULFATE 75 MG TAB PO SCH (10:03)
[2019-11-03] MEDS: AMLODIPINE BESYLATE 5 MG TAB PO SCH (10:04)
[2019-11-03] MEDS: predniSONE 5 MG TAB PO SCH (10:04)
[2019-11-03] MEDS: fentaNYL DRIP 1,250 MCG/250 ML BAG IV SCH (10:05)
[2019-11-03] MEDS: TACROLIMUS 0.5 MG CAP PO SCH ×3 (10:07→20:17)
--- NOTE | 2019-11-03 10:17 | Procedure Note ---
Procedure Note Date of Service November 03, 2019 INTUBATION PROCEDURE NOTE: Attending: Dr Alton Hansen MD Patient was evaluated and plan to intubate was made for respiratory distress. Sedative agent used: Etomidate 20 mg, lidocaine 100 mg Paralysis agent used: Rocuronium 50 mg Emergent consent was implied given patients rapidly declining clinical status and need for airway protection. The patient was prepared in the appropriate fashion. The patient was easily pre-oxygenated by using [id number] ventilation. With help of C-MAC grade 1 vocal cords were visualized and 8 [place] ETT was introduced on first attempt to 25 cm at the lip. The stylette was removed and balloon was inflated with 10mL of air. Appropriate Colorimetric change was appreciated for at least 10 breaths. Bilateral chest rise and breath sounds were appreciated without air sounds in the epigastrium. Patient tolerated the procedure well and there were no immediate complications. Chest Xray to follow for confirming placement. Coding CPT Codes Resuscitation - Resuscitation: 83406 Endotracheal Intubation, emergency ([id number]) [facility] [place] Procedure Codes (Charges) Resuscitation Resuscitation: 24347 Endotracheal Intubation, emergency
--- NOTE | 2019-11-03 10:31 | Critical Care Progress Note ---
Date of Service November 03, 2019 Assessment & Plan (1) Acute hypoxemic respiratory failure: Patient blood culture has been positive for gram-positive bacilli. Repeat blood culture from [id number] male with past medical history of unilateral left-sided lung transplant on immunosuppressive medication along with antiviral and antibiotics, systolic CHF ejection fraction 35%, dyslipidemia, hypertension, COPD was admitted to hospital because of worsening shortness of breath and hypoxia found in the ED. ICU was consulted for hypoxic respiratory failure as patient was requiring 15 L of nasal cannula still saturating in the high 80s. EKG 10/30/2019: Poor quality. A. fib with bradycardia, left axis deviation, no ST-T wave changes appreciated. -- VDRF sec Acute Hypoxic respiratory failure Rule out pneumonia, status post bronchoscopy 11/01/2019, follow-up cultures, extubated 11/02/2019, reintubated 11/03/2019 Atypical pulmonary edema can present this way especially in a patient who had lung transplant on the left with history of systolic CHF and end-stage renal disease c/w broad-spectrum antibiotic with atypical coverage Follow-up septic work-up, influenza negative, Covid-19 PCR negative, MRSA negative ESR:28, CRP: 2.22, Procalcitonin: 0.08 Continue with ventilatory support Keep RASS -1 Daily sedation holidays and SBT's Chlorhexidine mouthwash --Bacteremia Blood culture growing gram-positive bacilli, repeat culture negative to date Could be Listeria versus Clostridium We will continue with Zosyn for the time being, follow-up sensitivity --CKD now end-stage renal disease Started on hemodialysis 10/31/2019. Ultrasound of the right AV fistula shows 2 areas of cephalic vein outflow stenos is along with scattered thrombus. Vascular surgery has been consulted. Nephrology on board -- [facility] Delta-delta: Less than 1 Gap plus non-gap, gap likely from elevated BUN, could be from CKD Monitor --Elevated troponin Likely secondary to type II DE EKG shows no ST-T wave changes Monitor Cardiology on board --Prolonged QTC Could be from the use of beta-cally Will hold beta-blockers for the time being If the patient gets symptomatic we will give him glucagon Avoid QT prolonging medication. 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 Patient is on chronic immunosuppressive therapy with chronic antibiotic along with chronic prednisone 5 mg Mycophenolate and tacrolimus along with acyclovir, azithromycin, Bactrim and tobramycin inhaled Would continue it for the time being Dosing of the immunosuppressive medication as well as antibiotic needs to be adjusted as the patient has ESRD Transplant doctor at [facility] has been reached by the hospitalist will follow recommendation --Systolic CHF Ejection fraction 30-35% on echo done 09/28/2019 Plan as above --COPD Not in acute exacerbation Continue with inhaled bronchodilators --A. fib chronic On chronic warfarin at home Keep INR between 2-3 --Hypertension with dyslipidemia Continue with blood pressure medications Continue with statin --Prophylaxis GI: Protonix DVT: Warfarin (on hold) Diet: Tube feed IV: Peripheral, right arm AV fistula, reintubation 11/03/2019 Plan: In-N-Out: - 3.5 L Patient was reintubated today as he was in respiratory distress. He is making good amount of urine with bumetanide. Case was discussed with vascular surgery they are not planning to take the patient again to the OR today as he was again reintubated. Case also discussed with nephrology who wants the patient to have temporary dialysis catheter replaced then as over the weekend he will need dialysis. Patient will get dialysis today once the hemodialysis catheter has been placed in. Repeat culture negative to date. INR today 2.6. Hold warfarin. Patient was called and updated regarding the reintubation. I have personally spent 49 minutes of critical care time in the direct management of this patient. This is a life/limb threatening event. This includes time spent evaluating patient, direct bedside care, chart review, placing orders, interpretation of diagnostic studies, discussion with consultants, patient, and family members, as well as other required patient management activities. This time is exclusive of all separately billable procedures, and teaching time and separate from and in addition to any other critical care service time. Please note the above document was generated using voice recognition software. It may contain grammatical, syntax or spelling errors. (2) ESRD (end stage renal disease) on dialysis: (3) Lung transplant recipient: (4) CHF (congestive heart failure): (5) Chronic a-fib: Admission and Anticipated Discharge Date Admission Date: October 30, 2019 Subjective Patient seen and examined at bedside. Was in respiratory center the time of examination was on Oxymizer 10 L saturating 85%. Patient overnight refused to use BiPAP and he was pulling out the BiPAP. No fever. Patient did make good amount of urine in the last 24 hours. Given in the patient being in respiratory distress respiratory rate of 38 requiring continuous BiPAP plan to intubate emergently was made. Review of Systems Review of Systems: Unobtainable due to cognitive status Physical Exam Physical Exam: Constitutional: Restless, in respiratory distress HEENT: EOMI, PERRLA, right eye prosthetic, hard to hear Respiratory system: Decreased air entry bilaterally, positive crackles bilateral lower lobes, no wheeze, no rhonchi CVS: S1-S2 positive, no gallops, positive 2 out of 6 holo-systolic murmur best appreciated at the aorta Abdomen: Soft, nontender, nondistended, positive bowel sounds x4 Extremities: +2 pulses bilaterally radialis/ dorsalis pedis, no cyanosis, no edema, no clubbing, right forearm AV fistula Neuro: Patient moving bilateral lower extremities and upper extremities, Psych: Agitated mood G/U: Positive Skin: no rashes, warm and dry Lymphatic: no cervical or axillary lymphadenopathy Results & Data Results & Data ([facility]) Vital Signs (Past 12 Hours) Vital Signs Pulse Pulse Resp BP Pulse Ox 11/03/19 08:30 74 19 100 11/03/19 07:09 86 31 H 93 11/03/19 07:07 86 30 H 93 11/03/19 06:00 74 32 H 95 11/03/19 05:06 75 35 H 156/62 H 86 L 11/03/19 05:00 70 34 H 88 L 11/03/19 04:06 74 35 H 157/72 H 89 L 11/03/19 04:00 72 35 H 91 11/03/19 03:47 76 32 H 159/68 H 92 11/03/19 03:06 76 35 H 159/68 H 91 11/03/19 03:00 74 37 H 84 L 11/03/19 02:58 84 24 92 11/03/19 02:06 81 34 H 154/57 H 87 L 11/03/19 02:00 74 31 H 95 11/03/19 01:06 74 36 H 150/66 H 82 L 11/03/19 01:00 75 27 H 93 11/03/19 00:06 70 29 H 154/71 H 94 11/03/19 00:00 78 29 H 94 11/02/19 23:06 78 25 H 153/61 H 95 11/02/19 23:00 78 26 H 95 11/02/19 22:20 76 26 H 94 11/03/19 04:19 11/03/19 04:19 Coding Level of Care Code Critical Care 1st 30-74 mins Diagnoses Acute hypoxemic respiratory failure J96.01 ESRD (end stage renal disease) on dialysis N18.6; Z99.2 Lung transplant recipient Z94.2 CHF (congestive heart failure) I50.9 Heart failure chronicity: unspecified Heart failure type: unspecified Chronic a-fib I48.2 Time Spent (min) 49 (1) CHF (congestive heart failure) Heart failure chronicity: unspecified Heart failure type: unspecified Qualified Code(s): I50.9 - Heart failure, unspecified
[2019-11-03] MEDS: INSULIN GLARGINE SOLOSTAR 100 UNITS/ML 3 ML PEN SC SCH (10:43)
[2019-11-03] MEDS: PIPERACILLIN/TAZOBACTAM 3.375 GM in DEXTROSE 5% 100 ML IV SCH ×2 (10:44→20:28)
--- NOTE | 2019-11-03 11:27 | Nephrology Progress Note ---
Date of Service November 03, 2019 Assessment & Plan (1) ESRD (end stage renal disease) on dialysis: Abdi has ESRD due to multifactorial etiology including OLIVIER, tobramycin, HTN and DM. Has mature right radiocephalic AV fistula. Has hypertension which seems to be well controlled, on labetalol and doxazosin, has not been on CRISSY- inhibitor/ARB. History of diabetes without retinopathy, on insulin. He has been on PPI and Tobramycin for long time for his lung transplant. No history of NSAID use. Had 1st dialysis treatment on 10/31/2019, had 600 mL UF and had 1 hour 45 minutes treatment. Second dialysis treatment was complicated by high venous pressure and had less than 1 hour dialysis. Doppler showed cephalic vein stenosis. But responding to Bumex 4 mg twice a day. Plan for fistulogram was canceled today due to OR unavailability as patient again intubated. Plan to do fistulogram Wednesday. --plan for temporary dialysis catheter today than 3 hours dialysis this afternoon and if tolerates 4 hours tomorrow with UF as tolerated --continue on Bumex 4 mg twice a day --outpatient dialysis at [facility] on Wednesday --will start on phosphate binder and Renal Cap once extubated and starts p.o. intake --right arm nephrology precaution --epogen 14101 units x1 dose given on 10/31/2019 --continue Venofer 200 mg daily untill 11/05/19 Will follow (2) Anemia secondary to renal failure: (3) Hyperparathyroidism: (4) HTN (hypertension): (5) Lung transplant status: (6) Diabetes mellitus, type II: Admission and Anticipated Discharge Date Admission Date: October 30, 2019 Phyllis Rivera was seen and examined in ICU this morning. He was again intubated last night for desaturation and inability to tolerate BiPAP. Blood pressure, electrolyte acceptable. He had more than 4 liters urine output and almost 3 liters net negative. Hemoglobin improved. Review of Systems Review of Systems: Unobtainable due to endotracheal tube Physical Exam Constitutional: + ill appearing and + mechanically ventilated Respiratory: no respiratory distress Auscultation: + crackles Cardiovascular: Rate/Rhythm: regular rate and regular rhythm Heart Sounds: normal S1 and normal S2 Neurologic: Intubated and sedated. Results & Data ([facility]) Vital Signs (Past 12 Hours) Vital Signs Pulse Pulse Resp BP Pulse Ox 11/03/19 11:00 66 117/50 L 100 11/03/19 10:45 72 128/57 L 100 11/03/19 10:30 69 124/48 L 100 11/03/19 10:15 63 121/57 L 100 11/03/19 10:00 64 121/55 L 100 11/03/19 09:45 70 126/53 L 100 11/03/19 09:31 75 117/53 L 100 11/03/19 09:30 72 11/03/19 09:15 79 139/57 L 100 11/03/19 09:01 73 158/69 H 100 11/03/19 09:00 82 11/03/19 08:58 78 157/71 H 100 11/03/19 08:56 83 155/71 H 100 11/03/19 08:53 77 155/67 H 99 11/03/19 08:51 74 156/68 H 100 11/03/19 08:48 80 144/76 H 99 11/03/19 08:46 82 154/67 H 100 11/03/19 08:45 82 11/03/19 08:43 87 18 151/73 H 100 11/03/19 08:41 82 17 150/65 H 100 11/03/19 08:38 79 18 155/65 H 100 11/03/19 08:36 77 21 171/72 H 100 11/03/19 08:33 79 21 152/71 H 100 11/03/19 08:31 87 40 H 147/58 H 95 11/03/19 08:30 90 27 H 94 11/03/19 08:15 84 33 H 95 11/03/19 08:06 80 30 H 146/63 H 94 11/03/19 08:00 74 34 H 92 11/03/19 07:45 77 36 H 96 11/03/19 07:30 81 33 H 95 11/03/19 07:15 81 33 H 86 L 11/03/19 07:09 86 31 H 93 11/03/19 07:07 86 30 H 93 11/03/19 07:06 79 34 H 157/66 H 89 L 11/03/19 07:00 75 35 H 91 11/03/19 06:45 77 31 H 94 11/03/19 06:00 74 32 H 95 11/03/19 05:06 75 35 H 156/62 H 86 L 11/03/19 05:00 70 34 H 88 L 11/03/19 04:06 74 35 H 157/72 H 89 L 11/03/19 04:00 72 35 H 91 11/03/19 03:47 76 32 H 159/68 H 92 11/03/19 03:06 76 35 H 159/68 H 91 11/03/19 03:00 74 37 H 84 L 11/03/19 02:58 84 24 92 11/03/19 02:06 81 34 H 154/57 H 87 L 11/03/19 02:00 74 31 H 95 11/03/19 01:06 74 36 H 150/66 H 82 L 11/03/19 01:00 75 27 H 93 11/03/19 00:06 70 29 H 154/71 H 94 11/03/19 00:00 78 29 H 94 PG Care Time/CCT Total # of Minutes Spent Total Time Spent with Patient: Total time spent is greater than 50% in coordination of care (as documented) at patient's floor/unit and/or counseling patient: Coding Level of Care Code 24410 Subseq Hosp Care Lvl 3 Diagnoses ESRD (end stage renal disease) on dialysis N18.6; Z99.2 Anemia secondary to renal failure D63.1 Hyperparathyroidism E21.3 HTN (hypertension) I10 Hypertension type: unspecified Lung transplant status Z94.2 Diabetes mellitus, type II E11.9 (1) HTN (hypertension) Hypertension type: unspecified Qualified Code(s): I10 - Essential (primary) hypertension
[2019-11-03 11:34] LABS: iSTAT Allen Test Pass; iSTAT Arterial Blood Gas HCO3 18 meg/L (19-24); iSTAT Arterial Blood Gas pCO2 29 mmHg (35-46); iSTAT Arterial Blood Gas pO2 114 mmHg (80-95); iSTAT Carbon Dioxide 19 mmol/L (24-31); iSTAT FiO2 40 %; iSTAT Site L Radial
--- NOTE | 2019-11-03 13:35 | Hospitalist Progress Note ---
Date of Service November 03, 2019 Assessment & Plan (1) Acute hypoxemic respiratory failure: Acute respiratory failure with hypoxia Ventilator dependent respiratory failure Secondary to pulmonary edema Other possibilities include pneumonia Volume overload in setting of Acute Systolic CHF, ESRD, IPF GPR Bacteremia CXR:Increasing left lung infiltrates concerning for worsening pneumonia in the transplanted left lung. Chronic right mid to basilar infiltrates compatible with chronic interstitial lung disease. Involvement of pneumonia may also be present. 3. Suspected right pleural effusion. Cardiomegaly. Some degree of volume overload or congestive change is difficult to exclude. COVID-19 screen and influenza screen are negative Protocol is 0.08. WBC is 12 today Had bronchoscopy on 11/01/19 Blood culture from 10/31/19 growing GPR. Repeat blood cultures negative so far Currently on empiric antibiotics fire prevention specialist recommendations appreciated. Continue mechanical ventilation and wean per protocol Planned fistulogram today rescheduled to Wednesday after intubation. However, patient has been diuresing well so far on Bumex Currently net -3.6 L Continue diuresis for now. Industrial Workers recommendation appreciated Planned for temporary dialysis catheter until aVF issues are addressed (2) Afib (3) Bradycardia ? SSS Prolonged QTC Beta-cally on hold Bradycardia has resolved Monitor on telemetry Avoid QTC prolonging meds Cardiology evaluation noted (4) Supratherapeutic INR H/O DVT INR was 3.3 on admission, peaked at 3.6 Currently 2.6 today. 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 Mari Teixeira on 11/01/19 Contact NO:[phone] Current medications have been adjusted appropriately for renal function She did state that if we ever need to speak to transplant physician plant floor automation manager to call [phone] Washington on [facility] lung transplant team on 11/02/2019. I updated him on patient care and new HD. He recommend to continue with home dose of antibiotic/antirejection meds, to continue current dose of acyclovir and to get tacro trough level on Wednesday. Plan to call them again prior to discharge (9) DM 2 Hb A1C: 5.24 September 2019 Continue Insulin therapy Monitor BGs DVT Px: Coumadin still on hold as above Code Status Full code Disposition Continue ICU care Called and updated her on patient 's current condition and plan of care Admission and Anticipated Discharge Date Admission Date: October 30, 2019 Subjective Patient seen and examined today. He was reintubated this morning due to respiratory distress with tachypnea and not tolerating BiPAP And is currently intubated on AC ventilation Fistulogram planned today was rescheduled to Wednesday after intubation Review of Systems Review of Systems: Unobtainable due to endotracheal tube Physical Exam Constitutional: Intubated and sedated ENMT: ETT in situ Respiratory: Intubated and sedated Bilateral basal crackles Cardiovascular: Irregular pulse, S1 S2, no pedal edema Gastrointestinal (Abdomen): normal bowel sounds, soft, nontender, no hepatosplenomegaly Neurologic: Sedated on propofol Results & Data Results & Data ([facility]) Vital Signs (Past 12 Hours) Vital Signs Pulse Pulse Resp BP Pulse Ox 11/03/19 13:32 66 24 99 11/03/19 11:46 66 122/55 L 99 11/03/19 11:30 69 126/50 L 99 11/03/19 11:24 63 23 99 11/03/19 11:15 69 123/61 100 11/03/19 11:00 66 117/50 L 100 11/03/19 10:45 72 128/57 L 100 11/03/19 10:30 69 124/48 L 100 11/03/19 10:15 63 121/57 L 100 11/03/19 10:00 64 121/55 L 100 11/03/19 09:45 70 126/53 L 100 11/03/19 09:31 75 117/53 L 100 11/03/19 09:30 72 11/03/19 09:15 79 139/57 L 100 11/03/19 09:01 73 158/69 H 100 11/03/19 09:00 82 11/03/19 08:58 78 157/71 H 100 11/03/19 08:56 83 155/71 H 100 11/03/19 08:53 77 155/67 H 99 11/03/19 08:51 74 156/68 H 100 11/03/19 08:48 80 144/76 H 99 11/03/19 08:46 82 154/67 H 100 11/03/19 08:45 82 11/03/19 08:43 87 18 151/73 H 100 11/03/19 08:41 82 17 150/65 H 100 11/03/19 08:38 79 18 155/65 H 100 11/03/19 08:36 77 21 171/72 H 100 11/03/19 08:33 79 21 152/71 H 100 11/03/19 08:31 87 40 H 147/58 H 95 11/03/19 08:30 90 27 H 94 11/03/19 08:15 84 33 H 95 11/03/19 08:06 80 30 H 146/63 H 94 11/03/19 08:00 74 34 H 92 11/03/19 07:45 77 36 H 96 11/03/19 07:30 81 33 H 95 11/03/19 07:15 81 33 H 86 L 11/03/19 07:09 86 31 H 93 11/03/19 07:07 86 30 H 93 11/03/19 07:06 79 34 H 157/66 H 89 L 11/03/19 07:00 75 35 H 91 11/03/19 06:45 77 31 H 94 11/03/19 06:00 74 32 H 95 11/03/19 05:06 75 35 H 156/62 H 86 L 11/03/19 05:00 70 34 H 88 L 11/03/19 04:06 74 35 H 157/72 H 89 L 11/03/19 04:00 72 35 H 91 11/03/19 03:47 76 32 H 159/68 H 92 11/03/19 03:06 76 35 H 159/68 H 91 11/03/19 03:00 74 37 H 84 L 11/03/19 02:58 84 24 92 11/03/19 02:06 81 34 H 154/57 H 87 L 11/03/19 02:00 74 31 H 95 Laboratory Results Short CBC 11/03/19 Range/Units 04:19 WBC 12.22 H (4.8-10.8) K/uL Hgb 8.7 L (14.0-18.0) g/dL Hct 26.2 L (42-52) % Plt Count 167 (130-400) K/uL BMP 11/03/19 04:19 Sodium 141 Potassium 3.7 Chloride 108 H Carbon Dioxide 21 BUN 85 H Creatinine 6.09 H* Glucose 82 Calcium 8.6 Liver Function 11/03/19 Range/Units 04:19 Albumin 3.2 L (3.4-5.0) gm/dl
[2019-11-03] MEDS ORDERED: HEPARIN SODIUM (PORCINE) 5,000 UNITS in SYRINGE 0 ML IV STA (13:51)
[2019-11-03] MEDS ORDERED: HEPARIN SOD (PORCINE) 5,000 UNITS/ML VIAL IV ONE (14:00)
--- NOTE | 2019-11-03 14:18 | Pharmacy Report ---
Pharmacy Abx Dose Short Note - Date of Service November 03, 2019 - Assessment & Plan Assessment 78 year old M receiving vancomycin/zosyn for treatment of bacteremia/?pulm Day # 4 of antimicrobial therapy. 1/2 cultures growing coag negative staph without sensitivities to follow, and Gram positive bacilli. ?Contamination vs. true infection, patient has history of lung transplant on immunosuppressive agents including cellcept and tacrolimus. Vancomycin being dosed by levels, patient started HD on 10/30. Plan Vancomycin * Random level this AM, 20.3, estimate levels will be ~14 following dialysis, will redose x 1 with 750 mg after HD today * Patient with plans for HD today and tomorrow, therefore will get another random level tomorrow AM Pharmacy will continue to follow and will adjust dose/frequency as necessary. Thank you.
[2019-11-03] MEDS: IRON SUCROSE 200 MG in 0.9 % SODIUM CHLORIDE 100 ML IV SCH (14:50)
--- NOTE | 2019-11-03 15:16 | Procedure Note ---
Procedure Note Date of Service November 03, 2019 Procedure: Inserting ultrasound-guided dialysis catheter Artist Consultant: Dr. Alton Hansen Indication: Chronic renal failure, AV fistula malfunctioning Consent: Consent was obtained by on the phone and witnessed by the nurse bedside Anesthesia: 1% lidocaine without epinephrine local. Procedure: Consent was verified and timeout performed. Appropriate imaging studies were reviewed prior to the procedure. Under aseptic and sterile condition, right femoral vein was accessed under dir ect ultrasound guidance. Guidewire was confirmed to be within the lumen of vein with the help of ultrasound. Triple port dialysis catheter was introduced via Seldinger technique. Guide a wire was removed. Good non-pulsatile blood flow was appreciated from all the ports. The catheter was placed at 24 cm and sutured in place. BioPatch was applied to the catheter and a sterile Tegaderm dressing was applied over the catheter with careful attention to sterility. Patient tolerated the procedure well. Blood loss: Less than 2 cc Complications: None Coding CPT Codes Tubes, Drains, and Vasc Access - Tubes, Drains, and Vasc Access: [id number] Insertion of cannula for hemodialysis ([id number]) Tubes, Drains, and Vasc Access - Tubes, Drains, and Vasc Access: [id number] Ultrasound Guidance For Vascular ([id number]) [facility] [place] Procedure Codes (Charges) Tubes, Drains, and Vasc Access Procedure 1: Tubes, Drains, and Vasc Access: [id number] Insertion of cannula for hemodialysis Procedure 2: Tubes, Drains, and Vasc Access: [id number] Ultrasound Guidance For Vascular
[2019-11-03] MEDS ORDERED: ROCURONIUM BROMIDE 10 MG/ML 5 ML VIAL IV ONE (16:27)
[2019-11-03] MEDS ORDERED: ETOMIDATE 2 MG/ML 20 ML VIAL IV ONE (16:27)
[2019-11-03] MEDS ORDERED: LIDOCAINE 2% 20 MG/ML 5 ML SYR IV ONE (16:27)
[2019-11-03] MEDS: PEPTAMEN INTENSE VHP 1.0 CAL 1,000 ML BAG OG SCH (17:37)
[2019-11-03] MEDS ORDERED: VANCOMYCIN HCL 750 MG in SODIUM CHLORIDE 0.9% 250 ML IV ONE (20:00)
[2019-11-03] MEDS: ROSUVASTATIN CALCIUM 20 MG TAB PO SCH (20:17)
[2019-11-03] MEDS: TUBE FEEDING WATER FLUSH GT SCH (23:53)
[2019-11-04] MEDS: INSULIN ASPART 100 UNITS/ML 3 ML PEN SC SCH ×4 (00:39→17:39)
[2019-11-04] MEDS: TUBE FEEDING WATER FLUSH GT SCH ×6 (01:29→19:20)
[2019-11-04] MEDS ORDERED: STAT IV Infusion **Titration per Protocol STA (02:05)
[2019-11-04] MEDS ORDERED: LIDOCAINE/EPINEPHRINE 1% 20 ML VIAL INFIL ONE (02:05)
[2019-11-04 04:04] LABS: Hematocrit (blood only) 25.1 % (42-52); Hemoglobin 8.3 g/dL (14.0-18.0); Mean Corpuscular Hemoglobin 35.5 pg (25-34); Mean Corpuscular Hgb Conc 33.1 g/dL (32-36); Mean Corpuscular Volume 107.3 fL (80-100); Mean Platelet Volume 11.4 fL (7.4-10.4); Nucleated RBC # (auto) 0.05 K/uL (0-0); Nucleated RBC % (auto) 0.7 %; Platelet Count 166 K/uL (130-400); RDW Standard Deviation 64.6 fL (36.4-46.3); Red Blood Count 2.34 M/uL (4.7-6.1); White Blood Count 8.25 K/uL (4.8-10.8)
[2019-11-04 04:13] LABS: INR 2.2 (0.9-1.1); Prothrombin Time 21.8 Seconds (9.0-12.0)
[2019-11-04 04:34] LABS: Albumin Level 2.6 gm/dl (3.4-5.0); BUN Creatinine Ratio 13.4 (10-20); Calcium 8.4 mg/dl (8.5-10.1); Creatinine Clr Calc Pharmacy 18.9 ml/min; Est GFR (African American) 17.9; Est GFR (Non-African American) 15.4; Phosphorus 4.2 mg/dl (2.5-4.9); Potassium 3.2 mmol/L (3.5-5.1)
[2019-11-04 06:05] LABS: iSTAT Arterial Blood Gas HCO3 23 meg/L (19-24); iSTAT Arterial Blood Gas pCO2 30 mmHg (35-46); iSTAT Arterial Blood Gas pO2 97 mmHg (80-95); iSTAT Carbon Dioxide 24 mmol/L (24-31); iSTAT FiO2 30 %; iSTAT Site L Brachial
[2019-11-04] MEDS: propofoL 1,000 MG/100 ML VIAL IV SCH ×4 (06:20→20:09)
[2019-11-04] MEDS: ALBUT/IPRATROP 3MG/0.5MG NEB 3 ML VIAL NEB SCH ×4 (07:05→19:07)
[2019-11-04] MEDS: TOBRAMYCIN SULFATE INH SCH ×2 (07:05→19:07)
[2019-11-04] MEDS: AMLODIPINE BESYLATE 5 MG TAB PO SCH (07:37)
[2019-11-04] MEDS: FLUTICASONE/VILANTEROL 100/25MCG 14 PUFFS/INHALER INH SCH (07:37)
[2019-11-04] MEDS: predniSONE 5 MG TAB PO SCH (07:38)
[2019-11-04] MEDS: CLOPIDOGREL BISULFATE 75 MG TAB PO SCH (07:38)
[2019-11-04] MEDS: ACYCLOVIR SUSP 200 MG/5 ML UDP PO SCH ×2 (07:38→20:06)
[2019-11-04] MEDS: INSULIN GLARGINE SOLOSTAR 100 UNITS/ML 3 ML PEN SC SCH (07:45)
--- NOTE | 2019-11-04 07:55 | XRay Report ---
XR chest 1V portable CLINICAL HISTORY: 78 years-old Male presenting with f/u, history of left lung transplant. TECHNIQUE: Portable supine AP view of the chest was obtained. COMPARISON: 11/03/2019. FINDINGS: Endotracheal tube terminates in the midthoracic trachea roughly 5 cm from the yung. Nasogastric tub e descends below the diaphragm, terminus not visualized. Numerous external leads to grating image eleanor lity. Atherosclerosis of the aortic arch. Cardiac silhouette enlarged. Persistent radiolucency at the right upper lung related to underlying bulla/bleb. Persistence bilateral dense opacities with underlying c oarsened lung parenchyma. Loculated small right pleural effusion suspected. The left lateral costophr enic sulcus is not included within the [id number]. Degenerative changes of the thoracic spine. IMPRESSION: 1. Appropriately positioned tubes. 2. No significant change in dense bilateral lung infiltrates, diffusely affecting the transplant lef t lung. 3. Persistent right pleural effusion. ACT 112: Negative or not required by law. Electronically signed by: Momo Lenz M.D. 11/04/2019 7:53 AM
[2019-11-04] MEDS ORDERED: TUBE FEEDING WATER FLUSH GT SCH ×2 (08:00)
[2019-11-04] MEDS: PANTOprazole 40 MG in SYRINGE 0 ML IV SCH ×2 (08:31→20:06)
[2019-11-04] MEDS: BUMETANIDE 4 MG in SYRINGE 0 ML IV SCH ×2 (08:32→17:34)
[2019-11-04] MEDS: MYCOPHENOLATE SUSP 200 MG/1 ML PO SCH ×2 (08:33→20:05)
[2019-11-04] MEDS ORDERED: POTASSIUM CHLORIDE / WTR 10 MEQ/100 ML PLCT IV SCH (09:45)
[2019-11-04] MEDS: POTASSIUM CHLORIDE / WTR 20 MEQ/100 ML PLCT IV SCH ×2 (10:12→11:58)
[2019-11-04] MEDS: PIPERACILLIN/TAZOBACTAM 3.375 GM in DEXTROSE 5% 100 ML IV SCH ×2 (10:12→20:07)
[2019-11-04] MEDS: DOXYCYCLINE HYCLATE 100 MG in DEXTROSE 5% 100 ML IV SCH ×2 (10:13→20:07)
--- NOTE | 2019-11-04 10:23 | Critical Care Progress Note ---
Date of Service November 04, 2019 Assessment & Plan (1) Acute hypoxemic respiratory failure: Patient blood culture has been positive for gram-positive bacilli. Repeat blood culture from [id number] male with past medical history of unilateral left-sided lung transplant on immunosuppressive medication along with antiviral and antibiotics, systolic CHF ejection fraction 35%, dyslipidemia, hypertension, COPD was admitted to hospital because of worsening shortness of breath and hypoxia found in the ED. ICU was consulted for hypoxic respiratory failure as patient was requiring 15 L of nasal cannula still saturating in the high 80s. EKG 10/30/2019: Poor quality. A. fib with bradycardia, left axis deviation, no ST-T wave changes appreciated. -- VDRF sec Acute Hypoxic respiratory failure Rule out pneumonia, status post bronchoscopy 11/01/2019, follow-up cultures, extubated 11/02/2019, reintubated 11/03/2019 Atypical pulmonary edema can present this way especially in a patient who had lung transplant on the left with history of systolic CHF and end-stage renal disease c/w abx Follow-up septic work-up, influenza negative, Covid-19 PCR negative, MRSA negative ESR:28, CRP: 2.22, Procalcitonin: 0.08 Continue with ventilatory support Keep RASS -1 Daily sedation holidays and SBT's Chlorhexidine mouthwash --Bacteremia Blood culture growing gram-positive bacilli, repeat culture negative to date Likely contaminant We will continue with Zosyn for the time being, follow-up sensitivity --CKD now end-stage renal disease Started on hemodialysis 10/31/2019. Ultrasound of the right AV fistula shows 2 areas of cephalic vein outflow stenosis along with scattered thrombus. Vascular surgery has been consulted. Nephrology on board --Elevated troponin Likely secondary to type II UT EKG shows no ST-T wave changes Monitor Cardiology on board --Prolonged QTC Could be from the use of beta-cally Will hold beta-blockers for the time being If the patient gets symptomatic we will give him glucagon Avoid QT prolonging medication. 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 Patient is on chronic immunosuppressive therapy with chronic antibiotic along with chronic prednisone 5 mg Mycophenolate and tacrolimus along with acyclovir, azithromycin, Bactrim and tobramycin inhaled Would continue it for the time being Dosing of the immunosuppressive medication as well as antibiotic needs to be adjusted as the patient has ESRD Transplant doctor at [facility] has been reached by the hospitalist will follow recommendation --Systolic CHF Ejection fraction 30-35% on echo done 09/28/2019 Plan as above --COPD Not in acute exacerbation Continue with inhaled bronchodilators --A. fib chronic On chronic warfarin at home Keep INR between 2-3 --Hypertension with dyslipidemia Continue with blood pressure medications Continue with statin --Prophylaxis GI: Protonix DVT: Warfarin (on hold) Diet: Tube feed IV: Peripheral, right arm AV fistula, right femoral dialysis catheter 11/03/2019, reintubation 11/03/2019 Patient was bronched 11/01/2019 Plan: In-N-Out: -1.5 L X-ray from today still shows diffuse infiltrates on the left lung., Right apical bullae persist. Repeat culture negative to date. Bronchial culture also negative to date. Bronchial beta D glucan pending, CMV culture pending, BAL galactomannan pending Medications which cannot be crushed are on hold while the patient is intubated. Given that patient's nasal MRSA screen was negative we will not give him any more dose of vancomycin. Would continue with Zosyn. INR 2.2 today. Given that the patient is likely going to OR on Wednesday for his AV fistula revision we will hold warfarin. If the INR goes less than 2 we will start heparin drip instead. I have personally spent 38 minutes of critical care time in the direct management of this patient. This is a life/limb threatening event. This includes time spent evaluating patient, direct bedside care, chart review, placing orders, interpretation of diagnostic studies, discussion with consultants, patient, and family members, as well as other required patient management activities. This time is exclusive of all separately billable procedures, and teaching time and separate from and in addition to any other critical care service time. Please note the above document was generated using voice recognition software. It may contain grammatical, syntax or spelling errors. (2) ESRD (end stage renal disease) on dialysis: (3) Lung transplant recipient: (4) CHF (congestive heart failure): (5) Chronic a-fib: Admission and Anticipated Discharge Date Admission Date: October 30, 2019 Subjective Patient seen and examined at bedside. No acute distress, no adverse events overnight. Patient did have some bleeding from the right dialysis catheter which was sutured at night. Afebrile. On propofol 35 the time of examination Review of Systems Review of Systems: Unobtainable due to cognitive status and Unobtainable due to endotracheal tube Physical Exam Physical Exam: Constitutional: Intubated HEENT: EOMI, PERRLA, right eye prosthetic, hard to hear Respiratory system: Decreased air entry bilaterally, positive crackles bilateral lower lobes, no wheeze, no rhonchi CVS: S1-S2 positive, no gallops, positive 2 out of 6 holo-systolic murmur best appreciated at the aorta Abdomen: Soft, nontender, nondistended, positive bowel sounds x4 Extremities: +2 pulses bilaterally radialis/ dorsalis pedis, no cyanosis, no edema, no clubbing, right forearm AV fistula Neuro: RASS -2 Psych: Unable to assess G/U: Positive Skin: no rashes, warm and dry Lymphatic: no cervical or axillary lymphadenopathy Results & Data Results & Data ([facility]) Vital Signs (Past 12 Hours) Vital Signs Temp Pulse Pulse Resp BP BP Pulse Ox 11/04/19 07:29 75 19 100 11/04/19 07:00 36.9 C 74 18 135/65 100 11/04/19 05:53 77 20 100 11/04/19 04:00 69 100 11/04/19 03:47 72 146/58 H 100 11/04/19 03:35 69 19 11/04/19 03:00 66 100 11/04/19 02:47 74 138/55 L 100 11/04/19 02:00 92 11/04/19 01:47 66 136/62 100 11/04/19 01:00 62 100 11/04/19 00:47 63 137/60 100 11/04/19 00:00 73 100 11/03/19 23:47 72 133/53 L 99 11/03/19 23:16 67 18 100 11/03/19 23:00 80 100 11/04/19 03:49 11/04/19 03:49 Coding Level of Care Code Critical Care 1st 30-74 mins Diagnoses Acute hypoxemic respiratory failure J96.01 ESRD (end stage renal disease) on dialysis N18.6; Z99.2 Lung transplant recipient Z94.2 CHF (congestive heart failure) I50.9 Heart failure chronicity: unspecified Heart failure type: unspecified Chronic a-fib I48.2 Time Spent (min) 38 (1) CHF (congestive heart failure) Heart failure chronicity: unspecified Heart failure type: unspecified Qualified Code(s): I50.9 - Heart failure, unspecified
[2019-11-04] MEDS: TACROLIMUS 0.5 MG CAP PO SCH ×2 (11:13→22:12)
--- NOTE | 2019-11-04 11:24 | Hospitalist Progress Note ---
Date of Service November 04, 2019 Assessment & Plan (1) Acute hypoxemic respiratory failure: Acute respiratory failure with hypoxia Ventilator dependent respiratory failure Secondary to pulmonary edema Other possibilities include pneumonia Volume overload in setting of Acute Systolic CHF, ESRD, IPF GPR Bacteremia CXR:Increasing left lung infiltrates concerning for worsening pneumonia in the transplanted left lung. Chronic right mid to basilar infiltrates compatible with chronic interstitial lung disease. Involvement of pneumonia may also be present. 3. Suspected right pleural effusion. Cardiomegaly. Some degree of volume overload or congestive change is difficult to exclude. COVID-19 screen and influenza screen are negative Protocol is 0.08. WBC is 8 today Had bronchoscopy on 11/01/19 Blood culture from 10/31/19 growing GPR.? true bacteremia vs contaminant. Repeat blood cultures negative so far. BAL culures negative Continue [facility] crime specialist recommendations appreciated. Continue mechanical ventilation and wean per protocol Planned fistulogram for 11/03/19 rescheduled to Wednesday after reintubation. However, patient has been diuresing well so far on Bumex Continue diuresis for now. Dot Compliance Manager recommendation appreciated Got temporary HD cath for HD for now pending fistulogram planned for 11/06/19 (2) Afib (3) Bradycardia ? SSS Prolonged QTC Beta-cally on hold Bradycardia has resolved Monitor on telemetry Avoid QTC prolonging meds Cardiology evaluation noted (4) Supratherapeutic INR H/O DVT INR was 3.3 on admission, peaked at 3.6 Currently 2.2 today. Continue to hold coumadin since procedure is planned for wed. 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 Mari Zamarripahardikmartha on 11/01/19 Contact NO:[phone] Current medications have been adjusted appropriately for renal function She did state that if we ever need to speak to transplant physician office professional to call [phone] Washington on [facility] lung transplant team on 11/02/2019. I updated him on patient care and new HD. He recommend to continue with home dose of antibiotic/antirejection meds, to continue current dose of acyclovir and to get tacro trough level on Wednesday. Plan to call them again prior to discharge (9) DM 2 Hb A1C: 5.24 September 2019 Continue Insulin therapy Monitor BGs DVT Px: Coumadin still on hold as above Code Status Full code Disposition Continue ICU care Admission and Anticipated Discharge Date Admission Date: October 30, 2019 Subjective Patient seen and examined Currently intubated Review of Systems Review of Systems: Unobtainable due to endotracheal tube Physical Exam Constitutional: Intubated and sedated Respiratory: Auscultation: + diminished lung sounds (Bilateral bases) and + crackles (Basal) ETT in situ on mechanical ventilation Cardiovascular: S1 S2 +murmur. No pedal edema Gastrointestinal (Abdomen): normal bowel sounds, soft, nontender, no hepatosplenomegaly Neurologic: Intubated and sedated Genitourinary: Mane in situ Results & Data Results & Data ([facility]) Vital Signs (Past 12 Hours) Vital Signs Temp Pulse Pulse Resp BP BP Pulse Ox 11/04/19 07:29 75 19 100 11/04/19 07:00 36.9 C 74 18 135/65 100 11/04/19 05:53 77 20 11/04/19 04:00 69 100 11/04/19 03:47 72 146/58 H 11/04/19 03:35 69 19 100 11/04/19 03:00 66 11/04/19 02:47 74 138/55 L 11/04/19 02:00 92 11/04/19 01:47 66 136/62 100 11/04/19 01:00 62 11/04/19 00:47 63 137/60 11/04/19 00:00 73 11/03/19 23:47 72 133/53 L 99 Laboratory Results Short CBC 11/04/19 Range/Units 03:49 WBC 8.25 (4.8-10.8) K/uL Hgb 8.3 L (14.0-18.0) g/dL Hct 25.1 L (42-52) % Plt Count 166 (130-400) K/uL BMP 11/04/19 03:49 Sodium 141 Potassium 3.2 L Chloride 106 Carbon Dioxide 25 BUN 48 H Creatinine 3.59 H D Glucose 103 H Calcium 8.4 L Liver Function 11/04/19 Range/Units 03:49 Albumin 2.6 L (3.4-5.0) gm/dl
--- NOTE | 2019-11-04 11:25 | Nephrology Progress Note ---
Date of Service November 04, 2019 Assessment & Plan (1) ESRD (end stage renal disease) on dialysis: Adequate clearance with HD yesterday. Electrolytes acceptable. Negative fluid balance - diuresing with Bumex 4 mg BID. No changes have been made to diuretics at this time. Will hold HD today and plan additional dialysis tomorrow for clearance. Dialysis catheter provided adequate blood flow and clearance yesterday. AVF mature for use, however Qb complicated by stenosis. Fistulogram planned for Wednesday pending patient is stable off ventilator. 1st dialysis treatment on 10/31/2019. Second dialysis treatment was complicated by high venous pressure. Doppler showed cephalic vein stenosis. Fistulogram has been delayed due to OR unavailability as patient again intubated. Temporary HD catheter placed in the ICU yesterday. Post discharge, plan is to start outpatient dialysis at [facility] (2) Anemia secondary to renal failure: Epogen 73121 units x1 dose given on 10/31/2019 Venofer 200 mg daily -- stop date 11/05/19 (3) Hyperparathyroidism: PO4 binder held while intubated (4) HTN (hypertension): BP appropriately controlled (5) Lung transplant status: (6) Diabetes mellitus, type II: Admission and Anticipated Discharge Date Admission Date: October 30, 2019 Subjective Remains sedated on ventilator. Oxygenating well. HD completed yesterday without complications. Net UF ~700 ml. Hemodynamically stable. Afebrile. Urine output increased. Review of Systems Review of Systems: Unobtainable due to endotracheal tube Physical Exam Physical Exam: Limited due to COVID 19 pandemic Constitutional: + thin and + frail appearing Eyes: + anicteric sclerae ENMT: ETT Neck: normal visual inspection and trachea midline Respiratory: Auscultation: lungs clear to auscultation bilaterally ventilated Cardiovascular: Rate/Rhythm: regular rate Vessels: + JVD Extremities: + AV fistula (R RC +thrill and bruit); no edema Musculoskeletal: Extremities: no cyanosis and no clubbing Skin: + turgor decreased Neurologic: sedated Genitourinary: Mane with clear yellow urine Results & Data ([facility]) Vital Signs (Past 12 Hours) Vital Signs Temp Pulse Pulse Resp BP BP Pulse Ox 11/04/19 07:29 75 19 100 11/04/19 07:00 36.9 C 74 18 135/65 100 11/04/19 05:53 77 20 100 11/04/19 04:00 69 100 11/04/19 03:47 72 146/58 H 100 11/04/19 03:35 69 19 100 11/04/19 03:00 66 11/04/19 02:47 74 138/55 L 100 11/04/19 02:00 92 11/04/19 01:47 66 136/62 100 11/04/19 01:00 62 11/04/19 00:47 63 137/60 100 11/04/19 00:00 73 100 11/03/19 23:47 72 133/53 L 99 Laboratory Results Laboratory Results - last 24 hr 11/03/19 11/03/19 11/03/19 11:18 14:47 17:39 WBC RBC Hgb Hct MCV MCH MCHC RDW Std Deviation RDW Coeff of Ros Plt Count MPV Absolute Nucleated RBC Nucleated RBC % (auto) PT INR Sample Site L Radial POC pH 7.40 POC pCO2 29 L POC pO2 114 H POC HCO3 18 L POC Total CO2 19 L POC Base Excess -7.0 POC ABG O2 Sat 99.0 H Danial Test Pass O2 Delivery Device Ventilator POC O2 Rate 18 Minute Ventilation POC FiO2 40 Tidal Volume 450 PEEP 5 Sodium Potassium Chloride Carbon Dioxide Anion Gap BUN Creatinine Est Cr Clr Drug Dosing Est GFR ( Amer) Est GFR (Non-Af Amer) BUN/Creatinine Ratio Glucose POC Glucose 174 H 130 H Calcium Phosphorus Magnesium Albumin Random Vancomycin 11/04/19 11/04/19 11/04/19 00:35 03:49 03:49 WBC 8.25 RBC 2.34 L Hgb 8.3 L Hct 25.1 L MCV 107.3 H MCH 35.5 H MCHC 33.1 RDW Std Deviation 64.6 H RDW Coeff of Ros 17.0 H Plt Count 166 MPV 11.4 H Absolute Nucleated RBC 0.05 H Nucleated RBC % (auto) 0.7 PT INR Sample Site POC pH POC pCO2 POC pO2 POC HCO3 POC Total CO2 POC Base Excess POC ABG O2 Sat Danial Test O2 Delivery Device POC O2 Rate Minute Ventilation POC FiO2 Tidal Volume PEEP Sodium 141 Potassium 3.2 L Chloride 106 Carbon Dioxide 25 Anion Gap 10.0 BUN 48 H Creatinine 3.59 H D Est Cr Clr Drug Dosing 18.9 Est GFR ( Amer) 17.9 Est GFR (Non-Af Amer) 15.4 BUN/Creatinine Ratio 13.4 Glucose 103 H POC Glucose 151 H Calcium 8.4 L Phosphorus 4.2 Magnesium 2.0 Albumin 2.6 L Random Vancomycin 11/04/19 11/04/19 11/04/19 03:49 03:49 05:52 WBC RBC Hgb Hct MCV MCH MCHC RDW Std Deviation RDW Coeff of Ros Plt Count MPV Absolute Nucleated RBC Nucleated RBC % (auto) PT 21.8 H INR 2.2 H Sample Site L Brachial POC pH 7.50 H POC pCO2 30 L POC pO2 97 H POC HCO3 23 POC Total CO2 24 POC Base Excess 0.0 POC ABG O2 Sat 98.0 H Danial Test NA O2 Delivery Device Ventilator POC O2 Rate 18 Minute Ventilation 8.5 POC FiO2 30 Tidal Volume 450 PEEP 5 Sodium Potassium Chloride Carbon Dioxide Anion Gap BUN Creatinine Est Cr Clr Drug Dosing Est GFR ( Amer) Est GFR (Non-Af Amer) BUN/Creatinine Ratio Glucose POC Glucose Calcium Phosphorus Magnesium Albumin Random Vancomycin 26.1 PG Care Time/CCT Total # of Minutes Spent Total Time Spent with Patient: Total time spent is greater than 50% in coordination of care (as documented) at patient's floor/unit and/or counseling patient: Coding Level of Care Code 54637 Subseq Hosp Care Lvl 3 Diagnoses ESRD (end stage renal disease) on dialysis N18.6; Z99.2 Anemia secondary to renal failure D63.1 Hyperparathyroidism E21.3 HTN (hypertension) I10 Hypertension type: unspecified Lung transplant status Z94.2 Diabetes mellitus, type II E11.9 (1) HTN (hypertension) Hypertension type: unspecified Qualified Code(s): I10 - Essential (primary) hypertension
[2019-11-04] MEDS: IRON SUCROSE 200 MG in 0.9 % SODIUM CHLORIDE 100 ML IV SCH (12:24)
[2019-11-04] MEDS: PEPTAMEN INTENSE VHP 1.0 CAL 1,000 ML BAG OG SCH (17:38)
[2019-11-04] MEDS: fentaNYL DRIP 1,250 MCG/250 ML BAG IV SCH (19:21)
[2019-11-04] MEDS: ROSUVASTATIN CALCIUM 20 MG TAB PO SCH (20:06)
[2019-11-05] MEDS: INSULIN ASPART 100 UNITS/ML 3 ML PEN SC SCH ×4 (00:04→18:06)
[2019-11-05] MEDS: TUBE FEEDING WATER FLUSH GT SCH ×4 (00:05→11:03)
[2019-11-05] MEDS: propofoL 1,000 MG/100 ML VIAL IV SCH (00:06)
[2019-11-05 05:00] LABS: Hematocrit (blood only) 25.9 % (42-52); Hemoglobin 8.4 g/dL (14.0-18.0); Mean Corpuscular Hemoglobin 34.9 pg (25-34); Mean Corpuscular Hgb Conc 32.4 g/dL (32-36); Mean Corpuscular Volume 107.5 fL (80-100); Mean Platelet Volume 11.1 fL (7.4-10.4); Nucleated RBC # (auto) 0.04 K/uL (0-0); Nucleated RBC % (auto) 0.4 %; Platelet Count 178 K/uL (130-400); RDW Coefficient of Variation 17.2 % (11.5-14.5); RDW Standard Deviation 65.6 fL (36.4-46.3); Red Blood Count 2.41 M/uL (4.7-6.1); White Blood Count 9.88 K/uL (4.8-10.8)
[2019-11-05 05:08] LABS: INR 1.4 (0.9-1.1); Prothrombin Time 14.4 Seconds (9.0-12.0)
[2019-11-05 05:15] LABS: Albumin Level 2.4 gm/dl (3.4-5.0); Bilirubin Direct 0.4 mg/dl (0-0.2); Calcium 8.3 mg/dl (8.5-10.1); Creatinine Clr Calc Pharmacy 18.5 ml/min; Est GFR (African American) 17.3; Magnesium 1.9 mg/dl (1.8-2.4); Potassium 3.6 mmol/L (3.5-5.1)
[2019-11-05 05:18] LABS: Bilirubin,Total 0.7 mg/dl (0.2-1); Phosphorus 4.3 mg/dl (2.5-4.9); Total Protein 6.3 gm/dl (6.4-8.2)
[2019-11-05 05:36] LABS: iSTAT Allen Test Pass; iSTAT Arterial Blood Gas HCO3 22 meg/L (19-24); iSTAT Arterial Blood Gas pCO2 29 mmHg (35-46); iSTAT Arterial Blood Gas pO2 120 mmHg (80-95); iSTAT Carbon Dioxide 23 mmol/L (24-31); iSTAT FiO2 30 %; iSTAT Site L Brachial
[2019-11-05] MEDS: ALBUT/IPRATROP 3MG/0.5MG NEB 3 ML VIAL NEB SCH ×4 (06:58→19:38)
[2019-11-05] MEDS: TOBRAMYCIN SULFATE INH SCH ×2 (06:58→19:38)
[2019-11-05] MEDS ORDERED: SODIUM CHLORIDE 0.9% 1000ML 1,000 ML IV PRN (07:00)
[2019-11-05] MEDS: FLUTICASONE/VILANTEROL 100/25MCG 14 PUFFS/INHALER INH SCH (07:36)
[2019-11-05] MEDS: CLOPIDOGREL BISULFATE 75 MG TAB PO SCH (07:37)
[2019-11-05] MEDS: ACYCLOVIR SUSP 200 MG/5 ML UDP PO SCH ×2 (07:37→20:06)
[2019-11-05] MEDS: MYCOPHENOLATE SUSP 200 MG/1 ML PO SCH ×2 (07:37→20:06)
[2019-11-05] MEDS: predniSONE 5 MG TAB PO SCH (07:37)
[2019-11-05] MEDS: TACROLIMUS 0.5 MG CAP PO SCH ×2 (07:38→20:06)
[2019-11-05] MEDS: INSULIN GLARGINE SOLOSTAR 100 UNITS/ML 3 ML PEN SC SCH (07:40)
[2019-11-05] MEDS: PANTOprazole 40 MG in SYRINGE 0 ML IV SCH ×2 (07:42→21:17)
[2019-11-05] MEDS: BUMETANIDE 4 MG in SYRINGE 0 ML IV SCH ×2 (07:42→18:03)
[2019-11-05] MEDS: AMLODIPINE BESYLATE 5 MG TAB PO SCH (07:45)
--- NOTE | 2019-11-05 07:46 | XRay Report ---
XR chest 1V portable HISTORY: 78 years-old Male f/u follow-up study in a patient with acute respiratory failure COMPARISON: Chest radiograph 11/04/2019 TECHNIQUE: Portable AP view the chest FINDINGS: Endotracheal tube overlies the midline, 4.6 cm superior to the yung. Multiple cylindrically leads a re coiled over the chest. Enteric tube distal tip projects in expected location of the proximal gastr ic body. Cardiomediastinal and hilar silhouettes are unchanged. There is markedly improved aeration o f the left lung from comparison. Minimal residual left lung base opacities. Persistent right pleural effusion with right lung opacities. Large bulla of the right upper lung. No pneumothorax or overt pul monary edema. Degenerative changes of the shoulders and spine. IMPRESSION: 1. Lines and tubes as above. 2. Markedly improved aeration of the left lung with minimal persistent left lung base opacities. 3. Unchanged appearance of the right lung with small right pleural effusion. ACT 112: Negative or not required by law. The above report was generated using voice recognition software. It may contain grammatical, syntax o r spelling errors. Electronically signed by: Nathaniel Dan M.D. 11/05/2019 7:45 AM
--- NOTE | 2019-11-05 09:39 | Critical Care Progress Note ---
Date of Service November 05, 2019 Assessment & Plan (1) Acute hypoxemic respiratory failure: Patient blood culture has been positive for gram-positive bacilli. Repeat blood culture from [id number] male with past medical history of unilateral left-sided lung transplant on immunosuppressive medication along with antiviral and antibiotics, systolic CHF ejection fraction 35%, dyslipidemia, hypertension, COPD was admitted to hospital because of worsening shortness of breath and hypoxia found in the ED. ICU was consulted for hypoxic respiratory failure as patient was requiring 15 L of nasal cannula still saturating in the high 80s. EKG 10/30/2019: Poor quality. A. fib with bradycardia, left axis deviation, no ST-T wave changes appreciated. -- VDRF sec Acute Hypoxic respiratory failure Rule out pneumonia, status post bronchoscopy 11/01/2019, follow-up cultures, extubated 11/02/2019, reintubated 11/03/2019 Atypical pulmonary edema can present this way especially in a patient who had lung transplant on the left with history of systolic CHF and end-stage renal disease c/w abx Follow-up septic work-up, influenza negative, Covid-19 PCR negative, MRSA negative ESR:28, CRP: 2.22, Procalcitonin: 0.08 Continue with ventilatory support Keep RASS -1 Daily sedation holidays and SBT's Chlorhexidine mouthwash --Bacteremia Blood culture growing gram-positive bacilli, repeat culture negative to date Likely contaminant Will continue with Zosyn for the time being --CKD now end-stage renal disease Started on hemodialysis 10/31/2019. Ultrasound of the right AV fistula shows 2 areas of cephalic vein outflow stenosis along with scattered thrombus. Vascular surgery has been consulted. Nephrology on board --Elevated troponin Likely secondary to type II NV EKG shows no ST-T wave changes Monitor Cardiology on board --Prolonged QTC Avoid QT prolonging medication. 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 Patient is on chronic immunosuppressive therapy with chronic antibiotic along with chronic prednisone 5 mg Mycophenolate and tacrolimus along with acyclovir, azithromycin, Bactrim and tobramycin inhaled Would continue it for the time being Transplant doctor at [facility] has been reached by the hospitalist will follow recommendation. Immunosuppressive medication dosing has been adjusted. --Systolic CHF Ejection fraction 30-35% on echo done 09/28/2019 Plan as above --COPD Not in acute exacerbation Continue with inhaled bronchodilators --A. fib chronic On chronic warfarin at home Keep INR between 2-3 --Hypertension with dyslipidemia Continue with blood pressure medications Continue with statin --Prophylaxis GI: Protonix DVT: Warfarin (on hold), heparin drip started 11/05/2019 Diet: Tube feed IV: Peripheral, right arm AV fistula, right femoral dialysis catheter 11/03/2019, reintubation 11/03/2019 Patient was bronched 11/01/2019 Plan: In-N-Out: - 634 mL Chest x-ray from today shows significant improvement in the infiltrates in the left side of the lung, right apical bulla still persist. Repeat culture negative to date. Bronchial culture also negative to date. Bronchial beta D glucan pending, CMV culture pending, BAL galactomannan pending Medications which cannot be crushed are on hold while the patient is intubated. INR 1.4 today. Given that the patient is likely going to OR on Wednesday for his AV fistula revision we will hold warfarin. Start the patient on heparin drip Patient is supposed to get dialysis today early in the morning. We will try extubation trial after the dialysis. I have personally spent 39 minutes of critical care time in the direct management of this patient. This is a life/limb threatening event. This includes time spent evaluating patient, direct bedside care, chart review, placing orders, interpretation of diagnostic studies, discussion with consultants, patient, and family members, as well as other required patient management activities. This time is exclusive of all separately billable procedures, and teaching time and separate from and in addition to any other critical care service time. Please note the above document was generated using voice recognition software. It may contain grammatical, syntax or spelling errors. (2) ESRD (end stage renal disease) on dialysis: (3) Lung transplant recipient: (4) CHF (congestive heart failure): (5) Chronic a-fib: Admission and Anticipated Discharge Date Admission Date: October 30, 2019 Subjective Patient seen and examined at bedside. No acute distress. There was some issue with the vent which was changed early in the morning today. But there was no issues with oxygenation with the patient. Patient is on propofol of 35 at the time of examination. RASS -2 Review of Systems Review of Systems: Unobtainable due to endotracheal tube Physical Exam Physical Exam: Constitutional: Intubated HEENT: EOMI, PERRLA, right eye prosthetic, hard to hear Respiratory system: Decreased air entry bilaterally, no wheeze, no rhonchi, improved entry on the left side, very minimal crackles on the left side CVS: S1-S2 positive, no gallops, positive 2 out of 6 holo-systolic murmur best appreciated at the aorta Abdomen: Soft, nontender, nondistended, positive bowel sounds x4 Extremities: +2 pulses bilaterally radialis/ dorsalis pedis, no cyanosis, no edema, no clubbing, right forearm AV fistula Neuro: RASS -2 Psych: Unable to assess G/U: Positive Skin: no rashes, warm and dry Lymphatic: no cervical or axillary lymphadenopathy Results & Data Results & Data ([facility]) Vital Signs (Past 12 Hours) Vital Signs Temp Pulse Pulse Resp BP BP Pulse Ox 11/05/19 09:15 71 123/63 11/05/19 09:00 70 137/67 11/05/19 08:49 23 11/05/19 08:47 37.0 C 68 11/05/19 08:00 37.0 C 65 75 16 127/69 98 11/05/19 07:00 37.0 C 82 16 127/69 99 11/05/19 06:56 69 16 100 11/05/19 06:00 71 11/05/19 05:29 81 20 100 11/05/19 05:12 77 129/66 100 11/05/19 05:00 79 100 11/05/19 04:00 68 11/05/19 03:47 73 126/67 100 11/05/19 03:00 78 11/05/19 02:47 77 142/66 H 100 11/05/19 02:11 67 16 11/05/19 02:00 72 11/05/19 01:47 74 136/76 11/05/19 01:00 72 11/05/19 00:47 73 128/65 11/05/19 00:00 78 100 11/04/19 23:47 74 143/72 H 100 11/04/19 23:10 75 16 100 11/04/19 23:00 63 100 11/04/19 22:47 71 135/75 100 11/04/19 22:00 78 100 11/04/19 21:47 75 135/72 100 11/05/19 04:32 11/05/19 04:32 Coding Level of Care Code Critical Care 1st 30-74 mins Diagnoses Acute hypoxemic respiratory failure J96.01 ESRD (end stage renal disease) on dialysis N18.6; Z99.2 Lung transplant recipient Z94.2 CHF (congestive heart failure) I50.9 Heart failure chronicity: unspecified Heart failure type: unspecified Chronic a-fib I48.2 Time Spent (min) 39 (1) CHF (congestive heart failure) Heart failure chronicity: unspecified Heart failure type: unspecified Qualified Code(s): I50.9 - Heart failure, unspecified
[2019-11-05] MEDS: DOXYCYCLINE HYCLATE 100 MG in DEXTROSE 5% 100 ML IV SCH ×2 (10:07→21:16)
[2019-11-05] MEDS: PIPERACILLIN/TAZOBACTAM 3.375 GM in DEXTROSE 5% 100 ML IV SCH ×2 (10:07→21:16)
--- NOTE | 2019-11-05 11:34 | Nephrology Progress Note ---
Date of Service November 05, 2019 Assessment & Plan (1) ESRD (end stage renal disease) on dialysis: Tolerating HD. Orders reviewed. 3 K. Uf goal 2 L. Diurising well. AM Bumex held. Continue 4 mg daily to encourage urine output. Adequate Qb via dialysis catheter. Plan to attempt extubation later today. Anticipated fistulogram tomorrow. AVF mature for use, however Qb complicated by stenosis. Fistulogram planned for Wednesday pending patient is stable off ventilator. Fistulogram delayed due to OR unavailability while patient is on vent. 1st dialysis treatment on 10/31/2019. Second dialysis treatment was complicated by high venous pressure. Doppler showed cephalic vein stenosis. Temporary HD catheter placed in the ICU 11/02. Post discharge, plan is to start outpatient dialysis at [facility]. (2) Anemia secondary to renal failure: Epogen 62718 units x1 dose given on 10/31/2019 Venofer 200 mg daily -- stop date today (3) Hyperparathyroidism: PO4 binder held while intubated (4) HTN (hypertension): BP appropriately controlled. Amlodipine held this AM prior to HD. (5) Lung transplant status: (6) Diabetes mellitus, type II: Admission and Anticipated Discharge Date Admission Date: October 30, 2019 Phyllis Dunn was seen and evaluated during hemodialysis this morning. Remains sedated on ventilator support. Oxygenating well. HD completed yesterday without complications. Net UF ~700 ml. Hemodynamically stable. Afebrile. Urine output increased. Review of Systems Review of Systems: Unobtainable due to endotracheal tube Physical Exam Physical Exam: Deferred due to COVID 19 pandemic. FIO2 30%. PEEP 5. BP acceptable. Heart rate appropriate. Qb at goal. Results & Data ([facility]) Vital Signs (Past 12 Hours) Vital Signs Temp Pulse Pulse Resp BP BP Pulse Ox 11/05/19 11:00 37.1 C 76 66 20 112/60 112/60 100 11/05/19 10:45 69 102/56 L 11/05/19 10:30 71 108/60 11/05/19 10:15 65 99/56 L 11/05/19 10:00 65 110/62 11/05/19 09:45 71 111/69 11/05/19 09:30 66 108/64 11/05/19 09:15 71 123/63 11/05/19 09:00 37.0 C 70 65 19 137/67 108/64 100 11/05/19 08:49 23 11/05/19 08:47 37.0 C 68 11/05/19 08:00 37.0 C 65 75 16 127/69 98 11/05/19 07:00 37.0 C 82 16 127/69 99 11/05/19 06:56 69 16 100 11/05/19 06:00 71 100 11/05/19 05:29 81 20 100 11/05/19 05:12 77 129/66 100 11/05/19 05:00 79 100 11/05/19 04:00 68 100 11/05/19 03:47 73 126/67 100 11/05/19 03:00 78 100 11/05/19 02:47 77 142/66 H 100 11/05/19 02:11 67 16 100 11/05/19 02:00 72 100 11/05/19 01:47 74 136/76 100 11/05/19 01:00 72 100 11/05/19 00:47 73 128/65 100 11/05/19 00:00 78 100 11/04/19 23:47 74 143/72 H 100 PG Care Time/CCT Total # of Minutes Spent Total Time Spent with Patient: Total time spent is greater than 50% in coordination of care (as documented) at patient's floor/unit and/or counseling patient: Coding Level of Care Code 15192 Subseq Hosp Care Lvl 3 Diagnoses ESRD (end stage renal disease) on dialysis N18.6; Z99.2 Anemia secondary to renal failure D63.1 Hyperparathyroidism E21.3 HTN (hypertension) I10 Hypertension type: unspecified Lung transplant status Z94.2 Diabetes mellitus, type II E11.9 (1) HTN (hypertension) Hypertension type: unspecified Qualified Code(s): I10 - Essential (primary) hypertension
[2019-11-05] MEDS: HEPARIN SODIUM/DEXTROSE 25,000 UNITS/500 ML BAG IV SCH (11:45)
[2019-11-05] MEDS: IRON SUCROSE 200 MG in 0.9 % SODIUM CHLORIDE 100 ML IV SCH (11:49)
[2019-11-05 11:56] LABS: Partial Thromboplastin Ratio 1.3; Partial Thromboplastin Time 35.8 Seconds (21.0-31.0)
--- NOTE | 2019-11-05 13:30 | Hospitalist Progress Note ---
Date of Service November 05, 2019 Assessment & Plan (1) Acute hypoxemic respiratory failure: Acute respiratory failure with hypoxia Ventilator dependent respiratory failure Secondary to pulmonary edema Other possibilities include pneumonia Volume overload in setting of Acute Systolic CHF, ESRD, IPF GPR Bacteremia CXR:Increasing left lung infiltrates concerning for worsening pneumonia in the transplanted left lung. Chronic right mid to basilar infiltrates compatible with chronic interstitial lung disease. Involvement of pneumonia may also be present. 3. Suspected right pleural effusion. Cardiomegaly. Some degree of volume overload or congestive change is difficult to exclude. COVID-19 screen and influenza screen are negative Protocol is 0.08. WBC is 9 today Had bronchoscopy on 11/01/19 Blood culture from 10/31/19 growing GPR.Likely contaminant. Repeat blood cultures negative so far. BAL culures negative Continue [facility] tax services specialist recommendations appreciated. Continue mechanical ventilation and wean per protocol Planned fistulogram for tomorrow 11/03/19 Has been diuresing well so far on Bumex I/O - Negative 858cc so far in the past 24h Automobile Body [employer]izer recommendation appreciated Got temporary HD cath for HD for now pending fistulogram planned for 11/06/19 Continue HD (2) Afib (3) Bradycardia ? SSS Prolonged QTC Beta-cally on hold Bradycardia has resolved Monitor on telemetry Avoid QTC prolonging meds Cardiology evaluation noted (4) Supratherapeutic INR H/O DVT INR was 3.3 on admission, peaked at 3.6 Currently 1.5 today. Continue to hold coumadin since procedure is planned for mon. 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 Guerra Puneet on 11/01/19 Contact NO:[phone] Current medications have been adjusted appropriately for renal function She did state that if we ever need to speak to transplant physician director of business operations to call [phone] Washington on [facility] lung transplant team on 11/02/2019. I updated him on patient care and new HD. He recommend to continue with home dose of antibiotic/antirejection meds, to continue current dose of acyclovir and to get tacro trough level on 11/06/19. Plan to call them again prior to discharge (9) DM 2 Hb A1C: 5.24 September 2019 Continue Insulin therapy Monitor BGs DVT Px: Coumadin still on hold as above Code Status Full code Disposition Continue ICU care Admission and Anticipated Discharge Date Admission Date: October 30, 2019 Subjective Patient seen and examined. Review of Systems Review of Systems: Unobtainable due to endotracheal tube Physical Exam Constitutional: Intubated and sedated Respiratory: Intubated on AC mode ventilator Decreased air entry bilaterally No crackles Cardiovascular: S1 S2 +murmur. No pedal edema Gastrointestinal (Abdomen): normal bowel sounds, soft, nontender, no hepatosplenomegaly Neurologic: Intubated and sedated Results & Data Results & Data ([facility]) Vital Signs (Past 12 Hours) Vital Signs Temp Pulse Pulse Resp BP BP Pulse Ox 11/05/19 12:15 69 101/67 11/05/19 12:00 37.1 C 67 63 20 115/54 L 115/54 L 100 11/05/19 11:45 64 104/62 11/05/19 11:30 64 88/61 L 11/05/19 11:27 60 19 100 11/05/19 11:15 68 111/72 11/05/19 11:00 37.1 C 76 66 20 112/60 112/60 100 11/05/19 10:45 69 102/56 L 11/05/19 10:30 71 108/60 11/05/19 10:15 65 99/56 L 11/05/19 10:00 65 110/62 11/05/19 09:45 71 111/69 11/05/19 09:30 66 108/64 11/05/19 09:15 71 123/63 11/05/19 09:00 37.0 C 70 65 19 137/67 108/64 100 11/05/19 08:49 23 11/05/19 08:47 37.0 C 68 11/05/19 08:00 37.0 C 65 75 16 127/69 98 11/05/19 07:00 37.0 C 82 16 127/69 99 11/05/19 06:56 69 16 100 11/05/19 06:00 71 100 11/05/19 05:29 81 20 100 11/05/19 05:12 77 129/66 100 11/05/19 05:00 79 100 11/05/19 04:00 68 100 11/05/19 03:47 73 126/67 100 11/05/19 03:00 78 100 11/05/19 02:47 77 142/66 H 100 11/05/19 02:11 67 16 100 11/05/19 02:00 72 100 11/05/19 01:47 74 136/76 100 Laboratory Results Short CBC 11/05/19 Range/Units 04:32 WBC 9.88 (4.8-10.8) K/uL Hgb 8.4 L (14.0-18.0) g/dL Hct 25.9 L (42-52) % Plt Count 178 (130-400) K/uL BMP 11/05/19 04:32 Sodium 141 Potassium 3.6 Chloride 106 Carbon Dioxide 23 BUN 55 H Creatinine 3.68 H Glucose 146 H Calcium 8.3 L Liver Function 11/05/19 Range/Units 04:32 Total Bilirubin 0.7 (0.2-1) mg/dl Direct Bilirubin 0.4 H (0-0.2) mg/dl AST 15 (15-37) U/L ALT 12 (12-78) U/L Alkaline Phosphatase 54 (45-117) U/L Albumin 2.4 L (3.4-5.0) gm/dl
[2019-11-05] MEDS: fentaNYL DRIP 1,250 MCG/250 ML BAG IV SCH (15:36)
[2019-11-05 19:04] LABS: Partial Thromboplastin Ratio 4.3; Partial Thromboplastin Time 118.7 Seconds (21.0-31.0)
[2019-11-05] MEDS: ROSUVASTATIN CALCIUM 20 MG TAB PO SCH (20:06)
[2019-11-06] MEDS: INSULIN ASPART 100 UNITS/ML 3 ML PEN SC SCH ×5 (00:11→23:43)
[2019-11-06 02:43] LABS: Hematocrit (blood only) 28.2 % (42-52); Hemoglobin 9.3 g/dL (14.0-18.0); Mean Corpuscular Hemoglobin 35.1 pg (25-34); Mean Corpuscular Volume 106.4 fL (80-100); Mean Platelet Volume 10.9 fL (7.4-10.4); Platelet Count 194 K/uL (130-400); RDW Coefficient of Variation 16.9 % (11.5-14.5); RDW Standard Deviation 64.6 fL (36.4-46.3); Red Blood Count 2.65 M/uL (4.7-6.1); White Blood Count 9.75 K/uL (4.8-10.8)
[2019-11-06 02:52] LABS: INR 1.2 (0.9-1.1); Prothrombin Time 12.9 Seconds (9.0-12.0)
[2019-11-06 03:03] LABS: Partial Thromboplastin Ratio 3.1
[2019-11-06 03:06] LABS: Partial Thromboplastin Time 85.2 Seconds (21.0-31.0)
[2019-11-06 03:07] LABS: BUN Creatinine Ratio 13.7 (10-20); Calcium 8.9 mg/dl (8.5-10.1); Creatinine Clr Calc Pharmacy 25.9 ml/min; Est GFR (African American) 26.9; Est GFR (Non-African American) 23.2; Magnesium 1.8 mg/dl (1.8-2.4); Potassium 3.5 mmol/L (3.5-5.1)
[2019-11-06] MEDS: HEPARIN SODIUM/DEXTROSE 25,000 UNITS/500 ML BAG IV SCH (05:53)
[2019-11-06] MEDS: TOBRAMYCIN SULFATE INH SCH ×2 (07:04→19:45)
[2019-11-06] MEDS: ALBUT/IPRATROP 3MG/0.5MG NEB 3 ML VIAL NEB SCH ×3 (07:04→19:31)
[2019-11-06] MEDS: PANTOprazole 40 MG in SYRINGE 0 ML IV SCH ×2 (07:42→20:12)
[2019-11-06] MEDS: FLUTICASONE/VILANTEROL 100/25MCG 14 PUFFS/INHALER INH SCH (07:49)
[2019-11-06] MEDS: AMLODIPINE BESYLATE 5 MG TAB PO SCH (07:50)
[2019-11-06] MEDS: MYCOPHENOLATE SUSP 200 MG/1 ML PO SCH ×2 (07:50→20:18)
[2019-11-06] MEDS: CLOPIDOGREL BISULFATE 75 MG TAB PO SCH (07:53)
[2019-11-06] MEDS: SULFA/TRIMETH 400/80MG TAB PO SCH (07:53)
[2019-11-06] MEDS: predniSONE 5 MG TAB PO SCH (07:53)
[2019-11-06] MEDS: ACYCLOVIR SUSP 200 MG/5 ML UDP PO SCH ×2 (07:54→20:10)
--- NOTE | 2019-11-06 08:22 | History & Physical Bridge Note ---
Date of Service November 06, 2019 History & Physical Bridge Note Patient for fistulogram with possible intervention today. I have discussed the risks options and benefits of the procedure with the patient'. The patient's understands the risks options and benefits and agrees to the procedure. I have examined the patient, reviewed the History & Physical and in the interval since the performance of the History & Physical I have noted the following changes of clinical significance: no changes noted
--- NOTE | 2019-11-06 09:01 | Anesthesiology Consultation ---
Date of Service November 06, 2019 Assessment & Plan (1) Encounter for pre-operative examination: Chart Review Chart Review: Acceptable Risk for Surgery Consults Requested none ASA ASA4 Proposed Anesthesia Anesthesia Type: MAC Risk / Benefits Reviewed With: PT / POA / Parent / Guardian, Accepts Plan and Informed Consent Obtained History Surgery Operation Date: 11/06/19 15:05 Proposed Procedures p Right Arm Fistulogram with Intervention - Fran Oconnell MD Height/Weight Height: 6 ft Weight: 72.8 kg Allergies Allergy/AdvReac Type Severity Reaction Status Date / Time levofloxacin Allergy Intermediate ANAPHYLAXIS Verified 10/30/19 23:01 oxycodone Allergy Intermediate ANAPHYLAXIS Verified 10/30/19 23:01 cat dander Allergy Unknown CHEST Verified 10/30/19 23:02 TIGHTNESS Medications Home Medications Medication Instructions Recorded Confirmed Last Taken albuterol sulfate 2.5 mg CONTINUOUS NEBULIZATION BID 03/02/19 10/30/19 04/21/19 ml clopidogrel 75 mg tablet 75 mg PO DAILY #30 tab 03/02/19 10/30/19 09/27/19 doxazosin 4 mg tablet 8 mg PO HS tab 03/02/19 10/30/19 09/26/19 fluoxetine 20 mg capsule 40 mg PO DAILY cap 03/02/19 10/30/19 09/27/19 fluticasone 500 mcg-salmeterol 50 1 puffs INH Q12H 03/02/19 10/30/19 04/21/19 mcg/dose blistr powdr for inhalation insulin lispro 100 unit/mL 0 - 140 sliding scale dose SUBCUT 03/02/19 10/30/19 09/27/19 subcutaneous solution TID PRN ml magnesium chloride 71.5 mg 143 mg PO DAILY tab 03/02/19 10/30/19 09/27/19 (magnesium chloride) tablet,delayed release montelukast 10 mg tablet 10 mg PO DAILY tab 03/02/19 10/30/19 09/27/19 mycophenolate sodium 180 mg 180 mg PO BID tab 03/02/19 10/30/19 09/27/19 tablet,delayed release pantoprazole 40 mg tablet,delayed 40 mg PO BID tab 03/02/19 10/30/19 09/27/19 release rosuvastatin 40 mg tablet 40 mg PO HS #90 tab 03/02/19 10/30/19 09/27/19 tacrolimus 0.5 mg capsule 0.5 mg PO BID cap 03/02/19 10/30/19 09/27/19 acetaminophen [Tylenol Extra 500 mg PO Q6H PRN 04/21/19 10/30/19 Unknown Strength] azithromycin [Zithromax] 250 mg PO 3XWK 04/21/19 10/30/19 09/27/19 metoprolol succinate [Toprol XL] 100 mg PO DAILY 04/21/19 10/30/19 09/27/19 omega-3 acid ethyl esters [Lovaza] 2 cap PO BID 04/21/19 10/30/19 09/27/19 posaconazole [Noxafil] 300 mg PO DAILY 04/21/19 10/30/19 09/27/19 prednisone 5 mg PO DAILY 04/21/19 10/30/19 09/27/19 tobramycin 150 mg INHALATION Q12H 04/21/19 10/30/19 Unknown cyclobenzaprine 5 mg tablet 5 mg PO TID PRN 07/04/19 10/30/19 Unknown acyclovir 400 mg PO BID 09/27/19 10/30/19 09/27/19 sulfamethoxazole-trimethoprim 1 tab PO 2XWK 09/27/19 10/30/19 Unknown [Bactrim] amlodipine [Norvasc] 10 mg PO QAM 30 Days #60 tab 10/06/19 10/30/19 Unknown darbepoetin nicholas in polysorbat 100 100 mcg SUBCUT WEEKLY #4 ml 10/23/19 10/30/19 Unknown mcg/mL in polysorbate injection sodium bicarbonate 650 mg tablet 1,300 mg PO BID #60 tab 10/23/19 10/30/19 Unknown calcitriol 0.25 mcg PO 3XWK 10/30/19 10/30/19 Unknown furosemide [Lasix] 80 mg PO DAILY 10/30/19 10/30/19 Unknown hydralazine 10 mg PO Q8H 10/30/19 10/30/19 Unknown warfarin 2.5 mg PO QPM 10/30/19 10/30/19 Unknown Active Medications Generic Name Dose Route Start Last Admin Trade Name Freq PRN Reason Stop Dose Admin Acyclovir 200 mg 11/02/19 09:00 11/02/19 09:53 Zovirax PO 12/02/19 08:59 Not Given BID MARLYS Acyclovir 200 mg 11/02/19 10:00 11/06/19 07:54 Zovirax PO 12/02/19 09:59 200 mg BID MARLYS Administration Albuterol 3 ml 10/31/19 07:00 11/06/19 07:04 Duoneb NEB 11/30/19 06:59 3 ml QIDR MARLYS Administration Amlodipine Besylate 5 mg 11/01/19 09:00 11/06/19 07:50 Norvasc PO 12/01/19 08:59 5 mg QAM MARLYS Administration Clopidogrel Bisulfate 75 mg 11/01/19 09:00 11/06/19 07:53 Plavix PO 12/01/19 08:59 75 mg DAILY MARLYS Administration Doxazosin Mesylate 8 mg 10/31/19 21:00 10/31/19 20:27 Cardura PO 11/30/19 20:59 8 mg HS MARLYS Administration Doxycycline Hyclate 100 mg 10/31/19 09:00 11/01/19 10:11 Vibramycin PO 11/30/19 08:59 Not Given BID [facility] Fluoxetine HCl 40 mg 10/31/19 09:00 11/01/19 10:11 Prozac PO 11/30/19 08:59 Not Given DAILY [facility] Fluticasone/Vilanterol 1 puffs 10/31/19 09:00 11/06/19 07:49 Breo Ellipta 100/25 Mcg Inh INH 11/30/19 08:59 1 puffs DAILY MARLYS Administration Guaifenesin 600 mg 10/31/19 00:19 11/01/19 07:42 Mucinex PO 11/30/19 00:18 Not Given Q12 [facility] Hydralazine HCl 10 mg 10/31/19 00:19 11/01/19 06:04 Apresoline PO 11/30/19 00:18 Not Given Q8 MARLYS Promethazine HCl 12.5 mg/ 50.5 mls @ 202 mls/hr 10/31/19 00:19 10/31/19 12:35 Sodium Chloride IV 11/30/19 00:18 Infused Q6H PRN Infusion Nausea And Vomiting Tobramycin Sulfate 150 mg/ 3.75 mls @ 0.033 mls/min 10/31/19 07:00 05/18/20 07:04 Syringe INH 11/30/19 06:59 0.033 mls/min Q12R MARLYS Administration Piperacillin Sod/Tazobactam 115 mls @ 28.75 mls/hr 10/31/19 22:00 11/06/19 00:53 Sod 3.375 gm/ Dextrose IV 11/07/19 21:59 Infused Q12H MARLYS Infusion Protocol Pantoprazole Sodium 40 mg/ 10 mls @ 5 mls/min 11/01/19 10:00 11/06/19 07:42 Syringe IV 12/01/19 09:59 5 mls/min BID@0900,2100 MARLYS Administration Doxycycline Hyclate 100 mg/ 110 mls @ 55 mls/hr 11/01/19 10:00 11/05/19 23:43 Dextrose IV 12/01/19 09:59 Infused Q12H MARLYS Infusion Bumetanide 4 mg/ Syringe 16 mls @ 4 mls/min 11/05/19 17:00 11/05/19 18:03 IV 12/05/19 16:59 4 mls/min DAILY@1700 MARLYS Administration Heparin Sodium/Dextrose 25,000 units in 500 mls @ 20 mls/hr 11/05/19 11:15 11/06/19 06:57 Heparin Sodium/Dextrose IV 12/05/19 11:14 1,000 units/hr .Q24H MARLYS 20 mls/hr Titration Protocol 1,000 UNITS/HR Insulin Aspart 0 units 11/01/19 12:00 11/06/19 05:58 Novolog Flexpen SC 12/01/19 11:59 Not Given Q6 MARLYS Montelukast Sodium 10 mg 10/31/19 09:00 11/01/19 10:11 Singulair PO 11/30/19 08:59 Not Given DAILY MARLYS Mycophenolate Mofetil 250 mg 11/01/19 10:00 11/06/19 07:50 Cellcept PO 12/01/19 09:59 250 mg BID MARLYS Administration Mycophenolate Sodium 180 mg 10/31/19 09:00 11/01/19 10:10 Myfortic PO 11/30/19 08:59 Not Given BID MARLYS Pantoprazole Sodium 40 mg 10/31/19 09:00 11/01/19 07:42 Protonix PO 11/30/19 08:59 Not Given BID MARLYS Prednisone 5 mg 10/31/19 09:00 11/06/19 07:53 Prednisone PO 11/30/19 08:59 5 mg DAILY MARLYS Administration Rosuvastatin Calcium 40 mg 10/31/19 21:00 11/05/19 20:06 Crestor PO 11/30/19 20:59 Not Given HS MARLYS Tacrolimus 0.5 mg 10/31/19 09:00 11/05/19 20:06 Prograf PO 11/30/19 08:59 Not Given BID MARLYS Protocol Trimethoprim/Sulfamethoxazole 1 tab 10/31/19 00:19 11/06/19 07:53 Septra 400/80mg Tab PO 11/30/19 00:18 1 tab MoTh@0900 MARLYS Administration NPO Date Last Intake of Fluids: 11/06/19 Time Last Intake of Fluids: 00:00 Date Last Intake of Solids: 11/06/19 Time Last Intake of Solids: 00:00 Past Medical History Medical History Arthritis (Chronic) Chronic a-fib (Chronic) Chronic anemia (Chronic) Chronic diarrhea PT HAS BEEN SEEN AND EVALUATED BY GI FOR C-DIFF (NEGATIVE). GI CONCERNED AND FEELS SCOPE IS NECESSARY CKD (chronic kidney disease) stage 5, GFR less than 15 ml/min (Chronic) Diabetes mellitus, type II (Chronic) GERD (gastroesophageal reflux disease) (Chronic) Glaucoma (Chronic) H/O: CVA (cerebrovascular accident) (Chronic) HLD (hyperlipidemia) (Chronic) HTN (hypertension) (Chronic) Hyperglycemia (Chronic) Hyperparathyroidism (Chronic) Idiopathic pulmonary fibrosis (Chronic) Mood disorder (Chronic) Myocardial infarction (Acute) Paroxysmal atrial fibrillation (Chronic) Renal lesion Squamous cell carcinoma of skin of scalp (Chronic) Thrombocytopenia (Chronic) Exercise / Class Metabolic Activity IV < 2 Limit ADL/Bedbound Past Family History Family History Father , in his seventies of cancer No problems noted. Mother , age 88 of CHF No problems noted. Daughter Age: 46 No problems noted. Son Age: 45 No problems noted. Other No significant family history Past Surgical History Surgical History History of cardiac cath [place]2 [place] [facility] [place] Hx of heart artery stent (Chronic) S/P MITCHELL to LAD and circumflex after NSTEMI in 05/2018 Lung transplant status (Chronic) S/P patent foramen ovale closure (Resolved) Past Anesthesia History No Hx of Anesthesia Complications and No Family Hx of Anesthesia Complications History of PONV No Hx of PONV and No Hx of Motion Sickness Social History Smoking Status: Former smoker tobacco type: cigarettes Smoking cigarettes per day: HX OF BRIEF SOCIAL USE WHILE IN , QUIT 45 YEARS AGO Do You Dip or Chew Tobacco: No Smoking End Date: 35 years ago Hx Alcohol Use: Yes Alcohol type: hard liquor alcohol intake frequency: 3 or more drinks per day Hx Substance Use: No substance use type: does not use Physical Exam Vital Signs Last Vital Signs Temp 98.6 F 11/05/19 14:00 Pulse 74 11/06/19 08:00 Resp 18 11/06/19 07:30 BP 151/86 H 11/06/19 07:31 Pulse Ox 93 11/06/19 08:00 ENMT Mouth: no dentition abnormality Thyromental Distance: > or= 3.5 Finger Breadths Mallampati Class: II Neck normal visual inspection Respiratory normal respiratory effort Auscultation: lungs clear to auscultation bilaterally Cardiovascular Rate/Rhythm: regular rate and regular rhythm Testing Laboratory Results 11/06/19 02:35 11/06/19 02:35 PT 12.9 Seconds (9.0-12.0) H 11/06/19 02:35 INR 1.2 (0.9-1.1) H 11/06/19 02:35 APTT 85.2 Seconds (21.0-31.0) H* 11/06/19 02:35 Blood Type O Positive 10/31/19 04:35 Antibody Screen NEGATIVE 10/31/19 04:35 10/31/19 13:43 Aerobic Blood Culture - Final Blood No growth in Aerobic bottle after 5 days. Anaerobic Blood Culture - Final No growth in Anaerobic bottle after 5 days. 11/01/19 18:15 Fungal Smear - Final Bronch Wash,Left Lower Lobe Fungal Culture - Preliminary 11/02/19 10:08 Aerobic Blood Culture - Preliminary Blood No growth in Aerobic bottle after 48 hours. Anaerobic Blood Culture - Preliminary No growth in Anaerobic bottle after 48 hours. 11/02/19 10:00 Aerobic Blood Culture - Preliminary Blood No growth in Aerobic bottle after 48 hours. Anaerobic Blood Culture - Preliminary No growth in Anaerobic bottle after 48 hours. 10/31/19 13:37 Aerobic Blood Culture - Final Blood Coag neg staph not lugdunensis Gram positive bacilli Anaerobic Blood Culture - Final Coag neg staph not lugdunensis 11/01/19 18:15 Gram Stain - Final Bronch Wash,Left Lower Lobe Bronchoalveolar Lavage Culture - Final No growth 11/01/19 18:15 Acid Fast Bacilli Smear - Final Bronch Wash,Left Lower Lobe 11/01/19 08:25 Gram Stain - Final Sputum,Vent Suction Sputum Culture - Final No growth 11/06/19 11/06/19 05:56 00:08 POC Glucose 91 124 H Electrocardiogram Date: 10/30/19 Atrial fibrillation with slow ventricular response, rate 52 bpm Non-specific intra-ventricular conduction block Abnormal ECG When compared with ECG of 28-SEP-2019 04:47, Atrial fibrillation has replaced Atrial flutter QRS duration has increased Confirmed by Juanito Sellers ([id number]) on 11/01/2019 5:21:03 AM Chest X-Ray Date: 11/05/19 FINDINGS: Endotracheal tube overlies the midline, 4.6 cm superior to the yung. Multiple cylindrically leads are coiled over the chest. Enteric tube distal tip projects in expected location of the proximal gastric body. Cardiomediastinal and hilar silhouettes are unchanged. There is markedly improved aeration of the left lung from comparison. Minimal residual left lung base opacities. Persistent right pleural effusion with right lung opacities. Large bulla of the right upper lung. No pneumothorax or overt pulmonary edema. Degenerative changes of the shoulders and spine. IMPRESSION: 1. Lines and tubes as above. 2. Markedly improved aeration of the left lung with minimal persistent left lung base opacities. 3. Unchanged appearance of the right lung with small right pleural effusion. Echocardiogram Date: 09/28/19 No significant change compared to previous study of 10/27/18 Normal LV chamber size with mod concentric LVH Mod reduced LV systolic function, EF 30-35% There is a large sized apical and anteroseptal wall motion abnormality with hypokinesis to akinesis of the segments Mild AR Mild MR Severe LAE
--- NOTE | 2019-11-06 09:25 | Critical Care Progress Note ---
Date of Service November 06, 2019 Assessment & Plan (1) Acute hypoxemic respiratory failure: Patient blood culture has been positive for gram-positive bacilli. Repeat blood culture from [id number] male with past medical history of unilateral left-sided lung transplant on immunosuppressive medication along with antiviral and antibiotics, systolic CHF ejection fraction 35%, dyslipidemia, hypertension, COPD was admitted to hospital because of worsening shortness of breath and hypoxia found in the ED. ICU was consulted for hypoxic respiratory failure as patient was requiring 15 L of nasal cannula still saturating in the high 80s. EKG 10/30/2019: Poor quality. A. fib with bradycardia, left axis deviation, no ST-T wave changes appreciated. -- VDRF sec Acute Hypoxic respiratory failure Rule out pneumonia, status post bronchoscopy 11/01/2019, follow-up cultures, extubated 11/02/2019, reintubated 11/03/2019 Atypical pulmonary edema can present this way especially in a patient who had lung transplant on the left with history of systolic CHF and end-stage renal disease c/w abx Follow-up septic work-up, influenza negative, Covid-19 PCR negative, MRSA negative ESR:28, CRP: 2.22, Procalcitonin: 0.08 Extubated 11/04/2021 --Bacteremia Blood culture growing gram-positive bacilli, repeat culture negative to date Likely contaminant Will continue with Zosyn for the time being: Finish Zosyn today --CKD now end-stage renal disease Started on hemodialysis 10/31/2019. Ultrasound of the right AV fistula shows 2 areas of cephalic vein outflow stenosis along with scattered thrombus. Vascular surgery has been consulted. Nephrology on board Right femoral temp dialysis catheter --Elevated troponin Likely secondary to type II ID EKG shows no ST-T wave changes Monitor Cardiology on board --Prolonged QTC Avoid QT prolonging medication. 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 Patient is on chronic immunosuppressive therapy with chronic antibiotic along with chronic prednisone 5 mg Mycophenolate and tacrolimus along with acyclovir, azithromycin, Bactrim and tobramycin inhaled Would continue it for the time being Transplant doctor at [facility] has been reached by the hospitalist will follow recommendation. Immunosuppressive medication dosing has been adjusted. --Systolic CHF Ejection fraction 30-35% on echo done 09/28/2019 Plan as above --COPD Not in acute exacerbation Continue with inhaled bronchodilators --A. fib chronic On chronic warfarin at home Keep INR between 2-3 --Hypertension with dyslipidemia Continue with blood pressure medications Continue with statin --Prophylaxis GI: Protonix DVT: Warfarin (on hold), heparin drip started 11/05/2019 Diet: Tube feed IV: Peripheral, right arm AV fistula, right femoral dialysis catheter 11/03/2019, reintubation 11/03/2019 Patient was bronched 11/01/2019 Plan: Fistula gram today, hopefully remove temporary catheter. Remain in ICU, plan for speech consult in near future. (2) ESRD (end stage renal disease) on dialysis: (3) Lung transplant recipient: (4) CHF (congestive heart failure): (5) Chronic a-fib: Admission and Anticipated Discharge Date Admission Date: October 30, 2019 Subjective Extubated yesterday Physical Exam Physical Exam: General: Arouses easily, oriented x2. Skin: Warm, dry, Head: Atraumatic Ears, nose, mouth and throat: airway patent Cardiovascular: Normal peripheral perfusion Respiratory: no respiratory distress: Coarse breath sounds Gastrointestinal: Non distended Musculoskeletal: No deformity Results & Data Results & Data ([facility]) Vital Signs (Past 12 Hours) Vital Signs Pulse Pulse Resp BP Pulse Ox 11/06/19 08:00 74 93 11/06/19 07:31 73 151/86 H 96 11/06/19 07:30 77 18 96 11/06/19 07:05 76 16 100 11/06/19 07:00 81 90 11/06/19 06:31 73 169/79 H 91 11/06/19 05:31 80 169/72 H 93 11/06/19 04:32 84 163/75 H 95 11/06/19 03:31 77 152/72 H 93 11/06/19 02:38 82 142/70 H 94 11/06/19 01:30 76 149/70 H 92 11/06/19 00:30 80 135/72 91 11/05/19 23:31 78 146/76 H 93 11/05/19 22:31 71 161/70 H 94 11/05/19 21:31 77 153/69 H 92 Coding Level of Care Code 08160 Subseq Hosp Care Lvl 3 Diagnoses Acute hypoxemic respiratory failure J96.01 ESRD (end stage renal disease) on dialysis N18.6; Z99.2 Lung transplant recipient Z94.2 CHF (congestive heart failure) I50.9 Heart failure chronicity: unspecified Heart failure type: unspecified Chronic a-fib I48.2 (1) CHF (congestive heart failure) Heart failure chronicity: unspecified Heart failure type: unspecified Qualified Code(s): I50.9 - Heart failure, unspecified
[2019-11-06] MEDS ORDERED: ATROPINE SULFATE 0.1 MG/ML 10ML SYR IV PRN (09:46)
[2019-11-06] MEDS ORDERED: ePHEDrine sulfate 50 MG/ML AMP IV PRN (09:46)
[2019-11-06] MEDS ORDERED: fentaNYL citrate 100 MCG/2 ML VIAL IV PRN (09:46)
[2019-11-06] MEDS: DOXYCYCLINE HYCLATE 100 MG in DEXTROSE 5% 100 ML IV SCH ×2 (10:03→21:01)
[2019-11-06] MEDS: POTASSIUM CHLORIDE / WTR 10 MEQ/100 ML PLCT IV SCH ×2 (10:05→11:02)
[2019-11-06] MEDS: PIPERACILLIN/TAZOBACTAM 3.375 GM in DEXTROSE 5% 100 ML IV SCH ×2 (10:07→21:01)
--- NOTE | 2019-11-06 10:16 | Nephrology Progress Note ---
Date of Service November 06, 2019 Assessment & Plan (1) ESRD (end stage renal disease) on dialysis: Plan next HD tomorrow. Continue Bumex 4 mg daily to encourage urine output. KCl 20 mEq IV today for hypokalemia. Repeat metabolic profile tomorrow. Adequate Qb via dialysis catheter. Anticipated fistulogram today. Will plan to attempt HD via AVF tomorrow and hopefully then be able to remove dialysis catheter. 1st dialysis treatment on 10/31/2019. Second dialysis treatment was complicated by high venous pressure. Doppler showed cephalic vein stenosis. Temporary HD catheter placed in the ICU 11/02. Post discharge, plan is to start outpatient dialysis at [facility]. (2) Anemia secondary to renal failure: Epogen 63263 units x1 dose given on 10/31/2019. Will provide additional FELICIANO with HD tomorrow. Venofer 200 mg daily x 5 doses completed yesterday. (3) Hyperparathyroidism: PO4 binder held pending improved PO intake. (4) HTN (hypertension): BP appropriately controlled. (5) Lung transplant status: (6) Diabetes mellitus, type II: Admission and Anticipated Discharge Date Admission Date: October 30, 2019 Subjective Extubated. Maintaining O2 sat on 2L NC. No acute events overnight. Tolerated HD yesterday without complications. Net UF 2 L. Good Qb with dialysis catheter. Review of Systems Review of Systems: All systems reviewed & are unremarkable except as noted in HPI & below Physical Exam Physical Exam: Deferred due to COVID 19 pandemic. FIO2 30%. PEEP 5. BP acceptable. Heart rate appropriate. Qb at goal. Results & Data ([facility]) Vital Signs (Past 12 Hours) Vital Signs Temp Pulse Pulse Resp BP Pulse Ox 11/06/19 09:10 36.1 C L 71 20 160/71 H 11/06/19 08:00 74 93 11/06/19 07:31 73 151/86 H 96 11/06/19 07:30 77 18 96 11/06/19 07:05 76 16 100 11/06/19 07:00 81 90 11/06/19 06:31 73 169/79 H 91 11/06/19 05:31 80 169/72 H 93 11/06/19 04:32 84 163/75 H 95 11/06/19 03:31 77 152/72 H 93 11/06/19 02:38 82 142/70 H 94 05/18/20 01:30 76 149/70 H 92 11/06/19 00:30 80 135/72 91 11/05/19 23:31 78 146/76 H 93 11/05/19 22:31 71 161/70 H 94 PG Care Time/CCT Total # of Minutes Spent Total Time Spent with Patient: Total time spent is greater than 50% in coordination of care (as documented) at patient's floor/unit and/or counseling patient: Coding Level of Care Code 16036 Subseq Hosp Care Lvl 3 Diagnoses ESRD (end stage renal disease) on dialysis N18.6; Z99.2 Anemia secondary to renal failure D63.1 Hyperparathyroidism E21.3 HTN (hypertension) I10 Hypertension type: unspecified Lung transplant status Z94.2 Diabetes mellitus, type II E11.9 (1) HTN (hypertension) Hypertension type: unspecified Qualified Code(s): I10 - Essential (primary) hypertension
[2019-11-06 10:17] LABS: Partial Thromboplastin Ratio 2.2
[2019-11-06 10:50] LABS: Partial Thromboplastin Time 61.6 Seconds (21.0-31.0)
[2019-11-06] MEDS ORDERED: LIDOCAINE HCL 1% 20 ML VIAL ONE (12:18)
--- NOTE | 2019-11-06 12:22 | Hospitalist Progress Note ---
Date of Service November 06, 2019 Assessment & Plan (1) Acute hypoxemic respiratory failure: Acute respiratory failure with hypoxia Ventilator dependent respiratory failure Secondary to pulmonary edema Other possibilities include pneumonia Volume overload in setting of Acute Systolic CHF, ESRD, IPF GPR Bacteremia Likely contaminant CXR:Increasing left lung infiltrates concerning for worsening pneumonia in the transplanted left lung. Chronic right mid to basilar infiltrates compatible with chronic interstitial lung disease. Involvement of pneumonia may also be present. 3. Suspected right pleural effusion. Cardiomegaly. Some degree of volume overload or congestive change is difficult to exclude. COVID-19 screen and influenza screen are negative Had bronchoscopy on 11/01/19 Blood culture from 10/31/19 growing GPR.Likely contaminant. Repeat blood cultures negative so far. BAL culures negative Currently on Zosyn. Complete today correctional treatment specialist recommendations appreciated. Successfully extubated yesterday. Currently on 2 L/min nasal cannula. Wean oxygen as tolerated Planned fistulogram for this afternoon Has been diuresing well so far on Bumex Thermostat Mechanic recommendation appreciated Got temporary HD cath for HD for now pending fistulogram Continue HD Currently NPO for fistulogram. Will assess dysphagia screen post procedure vs LINOLEUM LAYER HELPER eval (2) Afib (3) Bradycardia ? SSS Prolonged QTC Beta-cally on hold Bradycardia has resolved Monitor on telemetry Avoid QTC prolonging meds Cardiology evaluation noted (4) Supratherapeutic INR H/O DVT INR was 3.3 on admission, peaked at 3.6 Currently 1.2 today. 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 transplant Center Continue immunosuppressive/antimicrobial suppression regimen I discussed with Patient [facility] Coordinator Ms. Guerra Puneet on 11/01/19 Contact NO:[phone] Current medications have been adjusted appropriately for renal function She did state that if we ever need to speak to transplant physician motel front desk clerk to call [phone] Washington on [facility] lung transplant team on 11/02/2019. I updated him on patient care and new HD. He recommend to continue with home dose of antibiotic/antirejection meds, to continue current dose of acyclovir and to get tacro trough level on 11/06/19. Tacro level sent Plan to call them again prior to discharge (9) DM 2 Hb A1C: 5.24 September 2019 Continue Insulin therapy Monitor BGs DVT Px: Coumadin still on hold as above Code Status Full code Disposition Continue ICU care Admission and Anticipated Discharge Date Admission Date: October 30, 2019 Subjective Patient seen and examined. Extubated yesterday. Has been saturating well [above 90%] on 2 L/min of nasal oxygen Patient is currently awake and alert confused. He also has significant hearing deficit hence, review of system is limited Physical Exam Constitutional: + well hydrated; no acute distress Eyes: PERRL, conjunctivae normal, anicteric sclerae ENMT: Ears: + hearing impairment Respiratory: no respiratory distress Good air entry No crackles or rales Cardiovascular: S1 S2 +murmur, no pedal edema Gastrointestinal (Abdomen): normal bowel sounds, soft, nontender, no hepatosplenomegaly Neurologic: moves all extremities Awake and alert. Oriented to person. Confused Hearing deficit. Results & Data Results & Data ([facility]) Vital Signs (Past 12 Hours) Vital Signs Temp Pulse Pulse Resp BP Pulse Ox 11/06/19 11:31 79 18 92 11/06/19 10:31 67 143/82 H 94 11/06/19 10:30 69 93 11/06/19 10:00 83 93 11/06/19 09:31 72 148/87 H 95 11/06/19 09:30 67 95 11/06/19 09:10 36.1 C L 84 20 160/71 H 99 11/06/19 09:00 72 90 11/06/19 08:31 74 162/75 H 92 11/06/19 08:30 74 91 11/06/19 08:00 74 93 11/06/19 07:31 73 151/86 H 96 11/06/19 07:30 77 18 96 11/06/19 07:05 76 16 100 11/06/19 07:00 81 90 05/18/20 06:31 73 169/79 H 91 11/06/19 05:31 80 169/72 H 93 11/06/19 04:32 84 163/75 H 95 11/06/19 03:31 77 152/72 H 93 11/06/19 02:38 82 142/70 H 94 11/06/19 01:30 76 149/70 H 92 11/06/19 00:30 80 135/72 91 Laboratory Results Short CBC 11/06/19 Range/Units 02:35 WBC 9.75 (4.8-10.8) K/uL Hgb 9.3 L (14.0-18.0) g/dL Hct 28.2 L (42-52) % Plt Count 194 (130-400) K/uL BMP 11/06/19 02:35 Sodium 140 Potassium 3.5 Chloride 105 Carbon Dioxide 23 BUN 35 H Creatinine 2.56 H D Glucose 101 H Calcium 8.9
[2019-11-06] MEDS ORDERED: ONDANSETRON INJ 2 MG/ML 2 ML VIAL ONE (12:32)
[2019-11-06] MEDS ORDERED: fentaNYL citrate 100 MCG/2 ML VIAL ONE (12:32)
[2019-11-06] MEDS ORDERED: PROPOFOL IV EMULSION 10 MG/ML 20 ML VIAL IV ONE (12:32)
[2019-11-06] MEDS ORDERED: PROMETHAZINE HCL INJ 25 MG/ML 1 ML VIAL ONE (13:26)
[2019-11-06] MEDS ORDERED: OPTIRAY 300 IV PRN (13:33)
--- NOTE | 2019-11-06 13:44 | Procedure Note ---
Angiogram Post Procedure Fluoroscopy Time (minutes): 6.1 Conscious Sedation Time (minutes): 0 Radiation (mGy): 18 Contrast: 40 Post Operative Report Pre & Post Diagnosis Operation Date: 11/06/19 15:05 Pre-Op Diagnosis: malfunctioning fistula Post-Op Diagnosis: malfunctioning fistula I identified the patient and participated in the time-out.: Yes Procedure Operation Date: 11/06/19 15:05 Actual Procedures p Fistulogram, Percutaneous Transluminal Angioplasty Peripheral Venous(Right) - Fran Oconnell MD Surgeon Fran Oconnell MD Airframe Technical Officer None Estimated Blood Loss 5 Findings Consistent with Post-Op Diagnosis Specimens None Anesthesia Type MAC Complications none Disposition Accompanied Patient To Recovery: No Disposition: Recovery Room Indications This is a 78-year-old gentleman the right arm fistula. He was having difficulty running through the fistula. There is no thrill felt but a pulse was felt proximally. Fistulogram with possible invention was recommended. The understood the risks options benefits and agreed to go ahead with this procedure. Description of Procedure The patient was taken to the angiogram suite and placed in the supine position. The right arm was then prepped and draped in a sterile manner. The patient was identified and a timeout performed. Local anesthetic was administered and a percutaneous puncture was then made of the proximal portion of the right arm AV fistula using micropuncture technique. Micropuncture wire and sheath were then inserted. A fistulogram was then performed. This showed 3 preocclusive stenoses in the forearm and a 5 cm long severe stenosis which was occluding the outflow in the upper arm just above the elbow. We placed an 035 wire through the stenoses in the forearm. We then exchanged the sheath to a 6 Japanese sheath from the micropuncture sheath. Using a 035 wire and a quick cross catheter we were able to cross the lesion in the upper arm. We then used a 6 x 100 [place] balloon to dilate all 4 lesions. There is mild recoil in all these lesions requiring re-ballooning again with a 6 x 100 balloon. This was done the 16 [place]. Good results were seen with all 4 stenoses being widely patent with the more proximal 1 having a proximally 10% residual stenosis. An excellent thrill was felt in the fistula at that time. The sheath was then pulled and pressure was applied. Adequate hemostasis was obtained. Sterile dressing were applied.The patient left the operation room in satisfactory condition and tolerated the procedure well. All needle and sponge counts were correct at the end of the procedure. I attest to the content of the Intraoperative Record and any orders documented therein. Any exceptions are noted below.
--- NOTE | 2019-11-06 14:38 | Anesthesiology Progress Note ---
Date of Service November 06, 2019 Anesthesia Post Procedure Vital Signs Vital Signs: Temp Pulse Pulse Resp BP Pulse Ox 20 12:31 74 132/85 92 05/18/20 12:30 73 92 05/18/20 12:00 77 93 05/18/20 11:31 73 79 18 156/71 H 93 05/18/20 11:30 72 92 05/18/20 11:00 78 90 05/18/20 10:32 69 95 05/18/20 10:31 67 143/82 H 94 05/18/20 10:30 69 93 05/18/20 10:00 83 93 05/18/20 09:31 72 148/87 H 95 05/18/20 09:30 67 95 05/18/20 09:10 97.0 F L 84 20 160/71 H 99 0518/20 09:00 72 90 05/18/20 08:31 74 162/75 H 92 05/18/20 08:30 74 91 05/18/20 08:00 74 93 05/18/20 07:31 73 151/86 H 96 05/18/20 07:30 77 18 96 05/18/20 07:05 76 16 100 05/18/20 07:00 81 90 05/18/20 06:31 73 169/79 H 91 05/18/20 05:31 80 169/72 H 93 05/18/20 04:32 84 163/75 H 95 05/18/20 03:31 77 152/72 H 93 05/18/20 02:38 82 142/70 H 94 05/18/20 01:30 76 149/70 H 92 05/18/20 00:30 80 135/72 91 05/17/20 23:31 78 146/76 H 93 05/17/20 22:31 71 161/70 H 94 05/17/20 21:31 77 153/69 H 92 05/17/20 20:30 78 141/72 H 94 05/17/20 19:38 68 22 94 05/17/20 19:31 65 148/73 H 100 05/17/20 18:31 69 154/68 H 98 05/17/20 17:31 63 144/70 H 100 05/17/20 16:30 77 154/77 H 100 05/17/20 16:00 77 05/17/20 15:01 59 L 157/72 H 98 Transfer of Care Handoff Completed per policy Notes Mental Status: alert / awake / arousable and participated in evaluation Patient Amnestic to Procedure: Yes Nausea / Vomiting: adequately controlled Pain: adequately controlled Airway Patency, RR, SpO2: stable & adequate BP & HR: stable & adequate Hydration State: stable & adequate Anesthetic Complications: no major complications apparent and Pt Satisfied with anesthetic care
[2019-11-06] MEDS: POSACONAZOLE 100 MG PO SCH (15:59)
[2019-11-06] MEDS: TACROLIMUS 0.5 MG CAP PO SCH ×2 (15:59→20:09)
[2019-11-06 16:49] LABS: Fungitell (1-3)-B-D-Glucan <31
[2019-11-06] MEDS: BUMETANIDE 4 MG in SYRINGE 0 ML IV SCH (17:43)
[2019-11-06 19:44] LABS: Aspergillus Ag, BAL Not Detected (Not Detected)
[2019-11-06] MEDS: ROSUVASTATIN CALCIUM 20 MG TAB PO SCH (20:10)
[2019-11-06] MEDS: INSULIN GLARGINE SOLOSTAR 100 UNITS/ML 3 ML PEN SC SCH (20:11)
[2019-11-07 04:34] LABS: Hematocrit (blood only) 29.8 % (42-52); Hemoglobin 9.4 g/dL (14.0-18.0); Mean Corpuscular Hemoglobin 33.7 pg (25-34); Mean Corpuscular Hgb Conc 31.5 g/dL (32-36); Mean Corpuscular Volume 106.8 fL (80-100); Mean Platelet Volume 11.2 fL (7.4-10.4); Platelet Count 223 K/uL (130-400); RDW Coefficient of Variation 16.8 % (11.5-14.5); RDW Standard Deviation 64.8 fL (36.4-46.3); Red Blood Count 2.79 M/uL (4.7-6.1); White Blood Count 10.01 K/uL (4.8-10.8)
[2019-11-07 04:52] LABS: BUN Creatinine Ratio 13.6 (10-20); Creatinine Clr Calc Pharmacy 20.4 ml/min; Est GFR (African American) 21.1; Est GFR (Non-African American) 18.2; Magnesium 1.7 mg/dl (1.8-2.4); Phosphorus 4.5 mg/dl (2.5-4.9); Potassium 3.4 mmol/L (3.5-5.1)
[2019-11-07 04:54] LABS: INR 1.3 (0.9-1.1); Partial Thromboplastin Ratio 2.3; Prothrombin Time 13.4 Seconds (9.0-12.0)
[2019-11-07 04:55] LABS: Partial Thromboplastin Time 64.1 Seconds (21.0-31.0)
[2019-11-07] MEDS: INSULIN ASPART 100 UNITS/ML 3 ML PEN SC SCH ×3 (05:08→18:13)
[2019-11-07] MEDS: HEPARIN SODIUM/DEXTROSE 25,000 UNITS/500 ML BAG IV SCH (06:14)
[2019-11-07] MEDS ORDERED: SODIUM CHLORIDE 0.9% 1000ML 1,000 ML IV PRN (07:00)
[2019-11-07] MEDS ORDERED: EPOETIN ALFA 20,000 UNITS/ML VIAL IV ONE (07:00)
[2019-11-07] MEDS: TOBRAMYCIN SULFATE INH SCH ×2 (07:19→19:31)
[2019-11-07] MEDS: ALBUT/IPRATROP 3MG/0.5MG NEB 3 ML VIAL NEB SCH ×2 (07:19→19:31)
[2019-11-07] MEDS: AMLODIPINE BESYLATE 5 MG TAB PO SCH (08:04)
[2019-11-07] MEDS: MYCOPHENOLATE SUSP 200 MG/1 ML PO SCH (08:04)
[2019-11-07] MEDS: FLUTICASONE/VILANTEROL 100/25MCG 14 PUFFS/INHALER INH SCH (08:04)
[2019-11-07] MEDS: ACYCLOVIR SUSP 200 MG/5 ML UDP PO SCH (08:05)
[2019-11-07] MEDS: predniSONE 5 MG TAB PO SCH (08:05)
[2019-11-07] MEDS: CLOPIDOGREL BISULFATE 75 MG TAB PO SCH (08:05)
[2019-11-07] MEDS: DOXYCYCLINE HYCLATE 100 MG in DEXTROSE 5% 100 ML IV SCH (08:06)
--- NOTE | 2019-11-07 09:23 | Nephrology Progress Note ---
Date of Service November 07, 2019 Assessment & Plan (1) ESRD (end stage renal disease) on dialysis: HD today. Orders entered into EMR. UF goal ~1 L. If adequate Qb via AVF, dialysis catheter can be removed. Continue Bumex 4 mg daily to encourage urine output. 4 K bath today for hypokalemia. POD#1 s/p fistulogram with dilation of multiple areas of stenosis. Will plan to attempt HD via AVF today and hopefully then be able to remove dialysis catheter. 1st dialysis treatment on 10/31/2019. Temporary HD catheter placed in the ICU 11/02. Post discharge, plan is to start outpatient dialysis at [facility]. (2) Anemia secondary to renal failure: Epogen 86502 units x1 dose given on 10/31/2019. Will provide additional FELICIANO with HD today. Venofer 200 mg daily x 5 doses completed yesterday. (3) Hyperparathyroidism: PO4 binder held pending improved PO intake. (4) HTN (hypertension): BP appropriately controlled. (5) Lung transplant status: (6) Diabetes mellitus, type II: Admission and Anticipated Discharge Date Admission Date: October 30, 2019 Subjective Mr. Bill was resting comfortably in bed this morning. He was slightly confused but overall answered questions appropriately. Feeling weak but states that his breathing is comfortable. No fevers or chills. Mane continues to drain an adequate amount of clear yellow urine. POD #1 s/p fistulogram with dilation of multiple areas of stenosis. Review of Systems Review of Systems: All systems reviewed & are unremarkable except as noted in HPI & below Physical Exam Physical Exam: Deferred due to COVID 19 pandemic. FIO2 30%. PEEP 5. BP acceptable. Heart rate appropriate. Qb at goal. Constitutional: + thin and + frail appearing; no acute distress Eyes: + anicteric sclerae Neck: normal visual inspection and trachea midline Respiratory: + tachypneic Auscultation: lungs clear to auscultation bi laterally Cardiovascular: Rate/Rhythm: regular rate Vessels: + JVD Extremities: + AV fistula (R RC +thrill and bruit); no edema Musculoskeletal: Extremities: no cyanosis and no clubbing Skin: + turgor decreased Results & Data ([facility]) Vital Signs (Past 12 Hours) Vital Signs Temp Pulse Pulse Resp BP Pulse Ox 05/19/20 08:30 85 25 H 96 05/19/20 08:24 73 25 H 127/71 90 11/07/19 08:00 36.6 C 77 26 H 11/07/19 07:44 81 18 93 11/07/19 07:30 80 28 H 96 11/07/19 07:23 73 23 141/62 H 99 11/07/19 07:00 82 28 H 92 11/07/19 06:24 71 27 H 132/74 96 11/07/19 05:23 72 28 H 110/60 99 11/07/19 04:23 36.5 C 80 24 144/65 H 97 11/07/19 03:23 74 20 135/71 96 11/07/19 02:23 84 22 148/73 H 96 11/07/19 01:23 81 24 150/74 H 94 11/07/19 00:23 36.5 C 73 23 132/80 97 11/06/19 23:24 82 24 145/74 H 95 11/06/19 22:23 83 25 H 162/63 H 96 11/06/19 21:23 81 25 H 153/73 H 95 Laboratory Results Laboratory Results - last 24 hr 11/01/19 11/01/19 11/06/19 18:15 18:57 09:32 WBC RBC Hgb Hct MCV MCH MCHC RDW Std Deviation RDW Coeff of Ros Plt Count MPV PT INR APTT PTT Ratio Sodium Potassium Chloride Carbon Dioxide Anion Gap BUN Creatinine Est Cr Clr Drug Dosing Est GFR ( Amer) Est GFR (Non-Af Amer) BUN/Creatinine Ratio Glucose POC Glucose Calcium Phosphorus Magnesium BAL A.galactomannan Ag Not Detected BAL A.galactomann Index 0.09 Tacrolimus Pending Beta-(1,3)-D-Glucan <31 B-(1,3)-D-Glucan Intrp NEGATIVE 11/06/19 11/06/19 11/06/19 09:32 11:46 17:49 WBC RBC Hgb Hct MCV MCH MCHC RDW Std Deviation RDW Coeff of Ros Plt Count MPV PT INR APTT 61.6 H* PTT Ratio 2.2 Sodium Potassium Chloride Carbon Dioxide Anion Gap BUN Creatinine Est Cr Clr Drug Dosing Est GFR ( Amer) Est GFR (Non-Af Amer) BUN/Creatinine Ratio Glucose POC Glucose 147 H 124 H Calcium Phosphorus Magnesium BAL A.galactomannan Ag BAL A.galactomann Index Tacrolimus Beta-(1,3)-D-Glucan B-(1,3)-D-Glucan Intrp 11/06/19 11/06/19 11/07/19 20:05 23:36 04:11 WBC 10.01 RBC 2.79 L Hgb 9.4 L Hct 29.8 L MCV 106.8 H MCH 33.7 MCHC 31.5 L RDW Std Deviation 64.8 H RDW Coeff of Ros 16.8 H Plt Count 223 MPV 11.2 H PT INR APTT PTT Ratio Sodium Potassium Chloride Carbon Dioxide Anion Gap BUN Creatinine Est Cr Clr Drug Dosing Est GFR ( Amer) Est GFR (Non-Af Amer) BUN/Creatinine Ratio Glucose POC Glucose 120 H 117 H Calcium Phosphorus Magnesium BAL A.galactomannan Ag BAL A.galactomann Index Tacrolimus Beta-(1,3)-D-Glucan B-(1,3)-D-Glucan Intrp 11/07/19 11/07/19 04:11 04:11 WBC RBC Hgb Hct MCV MCH MCHC RDW Std Deviation RDW Coeff of Ros Plt Count MPV PT 13.4 H INR 1.3 H APTT 64.1 H* PTT Ratio 2.3 Sodium 139 Potassium 3.4 L Chloride 106 Carbon Dioxide 24 Anion Gap 9.0 BUN 43 H Creatinine 3.13 H D Est Cr Clr Drug Dosing 20.4 Est GFR ( Amer) 21.1 Est GFR (Non-Af Amer) 18.2 BUN/Creatinine Ratio 13.6 Glucose 99 POC Glucose Calcium 9.0 Phosphorus 4.5 Magnesium 1.7 L BAL A.galactomannan Ag BAL A.galactomann Index Tacrolimus Beta-(1,3)-D-Glucan B-(1,3)-D-Glucan Intrp PG Care Time/CCT Total # of Minutes Spent Total Time Spent with Patient: Total time spent is greater than 50% in coordination of care (as documented) at patient's floor/unit and/or counseling patient: Coding Level of Care Code 17985 Subseq Hosp Care Lvl 3 Diagnoses ESRD (end stage renal disease) on dialysis N18.6; Z99.2 Anemia secondary to renal failure D63.1 Hyperparathyroidism E21.3 HTN (hypertension) I10 Hypertension type: unspecified Lung transplant status Z94.2 Diabetes mellitus, type II E11.9 (1) HTN (hypertension) Hypertension type: unspecified Qualified Code(s): I10 - Essential (primary) hypertension
[2019-11-07] MEDS: TACROLIMUS 0.5 MG CAP PO SCH ×2 (09:41→20:21)
--- NOTE | 2019-11-07 10:34 | Critical Care Progress Note ---
Date of Service November 07, 2019 Assessment & Plan (1) Acute hypoxemic respiratory failure: Patient blood culture has been positive for gram-positive bacilli. Repeat blood culture from -[id number] male with past medical history of unilateral left-sided lung transplant on immunosuppressive medication along with antiviral and antibiotics, systolic CHF ejection fraction 35%, dyslipidemia, hypertension, COPD was admitted to hospital because of worsening shortness of breath and hypoxia found in the ED. ICU was consulted for hypoxic respiratory failure as patient was requiring 15 L of nasal cannula still saturating in the high 80s. EKG 10/30/2019: Poor quality. A. fib with bradycardia, left axis deviation, no ST-T wave changes appreciated. -- VDRF sec Acute Hypoxic respiratory failure Rule out pneumonia, status post bronchoscopy 11/01/2019, follow-up cultures, extubated 11/02/2019, reintubated 11/03/2019 Atypical pulmonary edema can present this way especially in a patient who had lung transplant on the left with history of systolic CHF and end-stage renal disease c/w abx Follow-up septic work-up, influenza negative, Covid-19 PCR negative, MRSA negative ESR:28, CRP: 2.22, Procalcitonin: 0.08 Extubated 11/04/2021 Improved, stable --Bacteremia Blood culture growing gram-positive bacilli, repeat culture negative to date Likely contaminant Completed Zosyn --CKD now end-stage renal disease Started on hemodialysis 10/31/2019. Ultrasound of the right AV fistula shows 2 areas of cephalic vein outflow stenosis along with scattered thrombus. Vascular surgery procedure 11/05 Nephrology on board Will discontinue right femoral temporary dialysis catheter if patient is able to tolerate dialysis through fistula today --Elevated troponin Likely secondary to type II MN EKG shows no ST-T wave changes Monitor Cardiology on board Stable --Prolonged QTC Avoid QT prolonging medication. 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 Patient is on chronic immunosuppressive therapy with chronic antibiotic along with chronic prednisone 5 mg Mycophenolate and tacrolimus along with acyclovir, azithromycin, Bactrim and tobramycin inhaled Would continue it for the time being Transplant doctor at [facility] has been reached by the hospitalist will follow recommendation. Immunosuppressive medication dosing has been adjusted. -There may be interaction between antidepressant and Plavix thereby lowering Plavix efficacy -Could consider Brilinta however this interacts with antifungals -Speech evaluation today to evaluate swallow ability given multiple intubations --Systolic CHF Ejection fraction 30-35% on echo done 09/28/2019 Plan as above --COPD Not in acute exacerbation Continue with inhaled bronchodilators --A. fib chronic On chronic warfarin at home Keep INR between 2-3 -Heparin for now until able to restart Coumadin --Hypertension with dyslipidemia Continue with blood pressure medications Continue with statin --Prophylaxis GI: Protonix DVT: Warfarin (on hold), heparin drip started 11/05/2019 Diet: Tube feed IV: Peripheral, right arm AV fistula, right femoral dialysis catheter 11/03/2019, reintubation 11/03/2019 Patient was bronched 11/01/2019 Plan: Speech evaluation, hemodialysis Patient is stable for downgrade out of ICU status. (2) ESRD (end stage renal disease) on dialysis: (3) Lung transplant recipient: (4) CHF (congestive heart failure): (5) Chronic a-fib: Admission and Anticipated Discharge Date Admission Date: October 30, 2019 Subjective No overnight events Physical Exam Physical Exam: General: Arouses easily, oriented x2. Skin: Warm, dry, Head: Atraumatic Ears, nose, mouth and throat: airway patent Cardiovascular: Normal peripheral perfusion Respiratory: no respiratory distress: Coarse breath sounds Gastrointestinal: Non distended Musculoskeletal: No deformity Results & Data Results & Data ([facility]) Vital Signs (Past 12 Hours) Vital Signs Temp Pulse Pulse Resp BP Pulse Ox 11/07/19 08:30 85 25 H 96 11/07/19 08:24 73 25 H 127/71 90 11/07/19 08:00 36.6 C 77 26 H 11/07/19 07:44 81 18 93 11/07/19 07:30 80 28 H 96 11/07/19 07:23 73 23 141/62 H 99 11/07/19 07:00 82 28 H 92 11/07/19 06:24 71 27 H 132/74 96 11/07/19 05:23 72 28 H 110/60 99 11/07/19 04:23 36.5 C 80 24 144/65 H 97 11/07/19 03:23 74 20 135/71 96 11/07/19 02:23 84 22 148/73 H 96 11/07/19 01:23 81 24 150/74 H 94 05/19/20 00:23 36.5 C 73 23 132/80 97 11/06/19 23:24 82 24 145/74 H 95 Laboratory Results 11/07/19 11/07/19 11/07/19 Range/Units 04:11 04:11 04:11 WBC 10.01 (4.8-10.8) K/uL RBC 2.79 L (4.7-6.1) M/uL Hgb 9.4 L (14.0-18.0) g/dL Hct 29.8 L (42-52) % MCV 106.8 H (80-100) fL MCH 33.7 (25-34) pg MCHC 31.5 L (32-36) g/dL RDW Std Deviation 64.8 H (36.4-46.3) fL RDW Coeff of Ros 16.8 H (11.5-14.5) % Plt Count 223 (130-400) K/uL MPV 11.2 H (7.4-10.4) fL PT 13.4 H (9.0-12.0) Seconds INR 1.3 H (0.9-1.1) APTT 64.1 H* (21.0-31.0) Seconds PTT Ratio 2.3 Sodium 139 (136-145) mmol/L Potassium 3.4 L (3.5-5.1) mmol/L Chloride 106 (98-107) mmol/L Carbon Dioxide 24 (21-32) mmol/L Anion Gap 9.0 (3-11) BUN 43 H (7-18) mg/dl Creatinine 3.13 H D (0.6-1.4) mg/dl Est Cr Clr Drug Dosing 20.4 ml/min Est GFR ( Amer) 21.1 Est GFR (Non-Af Amer) 18.2 BUN/Creatinine Ratio 13.6 (10-20) Glucose 99 (70-99) mg/dl POC Glucose (70-99) mg/dl Calcium 9.0 (8.5-10.1) mg/dl Phosphorus 4.5 (2.5-4.9) mg/dl Magnesium 1.7 L (1.8-2.4) mg/dl BAL A.galactomannan Ag (Not Detected) BAL A.galactomann Index (<0.50) Beta-(1,3)-D-Glucan B-(1,3)-D-Glucan Intrp 11/06/19 11/06/19 11/06/19 Range/Units 23:36 20:05 17:49 WBC (4.8-10.8) K/uL RBC (4.7-6.1) M/uL Hgb (14.0-18.0) g/dL Hct (42-52) % MCV (80-100) fL MCH (25-34) pg MCHC (32-36) g/dL RDW Std Deviation (36.4-46.3) fL RDW Coeff of Ros (11.5-14.5) % Plt Count (130-400) K/uL MPV (7.4-10.4) fL PT (9.0-12.0) Seconds INR (0.9-1.1) APTT (21.0-31.0) Seconds PTT Ratio Sodium (136-145) mmol/L Potassium (3.5-5.1) mmol/L Chloride (98-107) mmol/L Carbon Dioxide (21-32) mmol/L Anion Gap (3-11) BUN (7-18) mg/dl Creatinine (0.6-1.4) mg/dl Est Cr Clr Drug Dosing ml/min Est GFR ( Amer) Est GFR (Non-Af Amer) BUN/Creatinine Ratio (10-20) Glucose (70-99) mg/dl POC Glucose 117 H 120 H 124 H (70-99) mg/dl Calcium (8.5-10.1) mg/dl Phosphorus (2.5-4.9) mg/dl Magnesium (1.8-2.4) mg/dl BAL A.galactomannan Ag (Not Detected) BAL A.galactomann Index (<0.50) Beta-(1,3)-D-Glucan B-(1,3)-D-Glucan Intrp 11/06/19 11/06/19 11/01/19 Range/Units 11:46 09:32 18:57 WBC (4.8-10.8) K/uL RBC (4.7-6.1) M/uL Hgb (14.0-18.0) g/dL Hct (42-52) % MCV (80-100) fL MCH (25-34) pg MCHC (32-36) g/dL RDW Std Deviation (36.4-46.3) fL RDW Coeff of Ros (11.5-14.5) % Plt Count (130-400) K/uL MPV (7.4-10.4) fL PT (9.0-12.0) Seconds INR (0.9-1.1) APTT 61.6 H* (21.0-31.0) Seconds PTT Ratio 2.2 Sodium (136-145) mmol/L Potassium (3.5-5.1) mmol/L Chloride (98-107) mmol/L Carbon Dioxide (21-32) mmol/L Anion Gap (3-11) BUN (7-18) mg/dl Creatinine (0.6-1.4) mg/dl Est Cr Clr Drug Dosing ml/min Est GFR ( Amer) Est GFR (Non-Af Amer) BUN/Creatinine Ratio (10-20) Glucose (70-99) mg/dl POC Glucose 147 H (70-99) mg/dl Calcium (8.5-10.1) mg/dl Phosphorus (2.5-4.9) mg/dl Magnesium (1.8-2.4) mg/dl BAL A.galactomannan Ag (Not Detected) BAL A.galactomann Index (<0.50) Beta-(1,3)-D-Glucan <31 B-(1,3)-D-Glucan Intrp NEGATIVE 11/01/19 Range/Units 18:15 WBC (4.8-10.8) K/uL RBC (4.7-6.1) M/uL Hgb (14.0-18.0) g/dL Hct (42-52) % MCV (80-100) fL MCH (25-34) pg MCHC (32-36) g/dL RDW Std Deviation (36.4-46.3) fL RDW Coeff of Ros (11.5-14.5) % Plt Count (130-400) K/uL MPV (7.4-10.4) fL PT (9.0-12.0) Seconds INR (0.9-1.1) APTT (21.0-31.0) Seconds PTT Ratio Sodium (136-145) mmol/L Potassium (3.5-5.1) mmol/L Chloride (98-107) mmol/L Carbon Dioxide (21-32) mmol/L Anion Gap (3-11) BUN (7-18) mg/dl Creatinine (0.6-1.4) mg/dl Est Cr Clr Drug Dosing ml/min Est GFR ( Amer) Est GFR (Non-Af Amer) BUN/Creatinine Ratio (10-20) Glucose (70-99) mg/dl POC Glucose (70-99) mg/dl Calcium (8.5-10.1) mg/dl Phosphorus (2.5-4.9) mg/dl Magnesium (1.8-2.4) mg/dl BAL A.galactomannan Ag Not Detected (Not Detected) BAL A.galactomann Index 0.09 (<0.50) Beta-(1,3)-D-Glucan B-(1,3)-D-Glucan Intrp Coding Level of Care Code 86705 Subseq Hosp Care Lvl 2 Diagnoses Acute hypoxemic respiratory failure J96.01 ESRD (end stage renal disease) on dialysis N18.6; Z99.2 Lung transplant recipient Z94.2 CHF (congestive heart failure) I50.9 Heart failure chronicity: unspecified Heart failure type: unspecified Chronic a-fib I48.2 (1) CHF (congestive heart failure) Heart failure chronicity: unspecified Heart failure type: unspecified Qualified Code(s): I50.9 - Heart failure, unspecified
--- NOTE | 2019-11-07 12:41 | Hospitalist Progress Note ---
Date of Service November 07, 2019 Assessment & Plan (1) Acute hypoxemic respiratory failure: Acute respiratory failure with hypoxia Ventilator dependent respiratory failure Secondary to pulmonary edema Other possibilities include pneumonia Volume overload in setting of Acute Systolic CHF, ESRD, IPF GPR Bacteremia Likely contaminant CXR:Increasing left lung infiltrates concerning for worsening pneumonia in the transplanted left lung. Chronic right mid to basilar infiltrates compatible with chronic interstitial lung disease. Involvement of pneumonia may also be present. 3. Suspected right pleural effusion. Cardiomegaly. Some degree of volume overload or congestive change is difficult to exclude. COVID-19 screen and influenza screen are negative Had bronchoscopy on 11/01/19 Blood culture from 10/31/19 growing GPR.Likely contaminant. Repeat blood cultures negative so far. BAL culures negative Completed [facility] information technology specialist recommendations appreciated. Initially extubated on 11/02/2019, reintubated 11/03/2019 and successfully extubated 11/05/2019. Currently on 2 L/min nasal cannula. Wean oxygen as tolerated We will get speech evaluation today prior to resuming oral diet Had fistulogram yesterday for malfunctioning fistula Currently getting HD via fistula Has been diuresing on Bumex Motion Picture Equipment Supervisor recommendation appreciated Got temporary HD cath for HD due to AV fistula malfunction. If patient tolerates HD via AV fistula well, temporary dialysis catheter will have to be discontinued Patient is new to HD and will need a discharge set up on discharge (2) Afib (3) Bradycardia ? SSS Prolonged QTC Beta-cally on hold Bradycardia has resolved Monitor on telemetry Avoid QTC prolonging meds Cardiology evaluation noted (4) Supratherapeutic INR H/O DVT INR was 3.3 on admission, peaked at 3.6 Currently 1.2 today. Coumadin has been on hold for planned fistulogram yesterday. 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 Mari Teixeira on 11/01/19 Contact NO:[phone] Current medications have been adjusted appropriately for renal function She did state that if we ever need to speak to transplant physician continuous improvement coach to call [phone] Washington on [facility] lung transplant team on 11/02/2019. I updated him on patient care and new HD. He recommend to continue with home dose of antibiotic/antirejection meds, to continue current dose of acyclovir and to get tacro trough level on 11/06/19. Tacro level sent. Please follow-up Dr. deleon from 11/06/2019 and discuss results with [facility] lung transplant Plan to call them again prior to discharge (9) DM 2 Hb A1C: 5.24 September 2019 Continue Insulin therapy Monitor BGs DVT Px: Coumadin still on hold as above Code Status Full code Disposition Continue ICU care Admission and Anticipated Discharge Date Admission Date: October 30, 2019 Subjective Patient seen and examined. Patient is awake and alert, more interactive today. Had fistulogram done yesterday. Currently getting HD via fistula Patient denies any complaints on review of systems Physical Exam Constitutional: + well hydrated; no acute distress Eyes: PERRL, conjunctivae normal, anicteric sclerae Respiratory: normal respiratory effort; no respiratory distress Auscultation: no crackles and no rales Cardiovascular: S1-2 No pedal edema Gastrointestinal (Abdomen): normal bowel sounds, soft, nontender, no hepatosplenomegaly Neurologic: PERRL, EOMI, accommodation nl, no face palsy, no dysarthria moves all extremities AOX2 Results & Data Results & Data ([facility]) Vital Signs (Past 12 Hours) Vital Signs Temp Pulse Pulse Pulse Resp BP Pulse Ox 11/07/19 12:15 71 120/56 L 11/07/19 12:00 75 126/71 11/07/19 11:45 79 126/78 11/07/19 11:30 79 126/78 11/07/19 11:15 80 136/68 11/07/19 11:00 73 130/74 11/07/19 10:45 72 111/66 11/07/19 10:30 71 133/79 11/07/19 10:15 70 136/71 11/07/19 10:07 85 135/72 11/07/19 09:50 36.5 C 85 11/07/19 08:30 85 25 H 96 11/07/19 08:24 73 25 H 127/71 90 11/07/19 08:00 36.6 C 77 26 H 11/07/19 07:44 81 18 93 11/07/19 07:30 80 28 H 96 11/07/19 07:23 73 23 141/62 H 99 11/07/19 07:00 82 28 H 92 11/07/19 06:24 71 27 H 132/74 96 11/07/19 05:23 72 28 H 110/60 99 11/07/19 04:23 36.5 C 80 24 144/65 H 97 11/07/19 03:23 74 20 135/71 96 11/07/19 02:23 84 22 148/73 H 96 11/07/19 01:23 81 24 150/74 H 94 Laboratory Results Short CBC 11/07/19 Range/Units 04:11 WBC 10.01 (4.8-10.8) K/uL Hgb 9.4 L (14.0-18.0) g/dL Hct 29.8 L (42-52) % Plt Count 223 (130-400) K/uL BMP 11/07/19 04:11 Sodium 139 Potassium 3.4 L Chloride 106 Carbon Dioxide 24 BUN 43 H Creatinine 3.13 H D Glucose 99 Calcium 9.0
[2019-11-07] MEDS: PIPERACILLIN/TAZOBACTAM 3.375 GM in DEXTROSE 5% 100 ML IV SCH (13:41)
[2019-11-07] MEDS: POSACONAZOLE 100 MG PO SCH (16:53)
[2019-11-07] MEDS: BUMETANIDE 4 MG in SYRINGE 0 ML IV SCH (16:53)
[2019-11-07] MEDS: MAGNESIUM OXIDE 400 MG TAB PO SCH (16:53)
[2019-11-07] MEDS ORDERED: POTASSIUM CHLORIDE 20 MEQ TABCR PO SCH (18:00)
[2019-11-07] MEDS: PANTOprazole 40 MG TAB PO SCH (20:22)
[2019-11-07] MEDS: DOXYCYCLINE HYCLATE 100 MG CAP PO SCH (20:22)
[2019-11-07] MEDS: INSULIN GLARGINE SOLOSTAR 100 UNITS/ML 3 ML PEN SC SCH (20:23)
[2019-11-07] MEDS: ACYCLOVIR 200 MG CAP PO SCH (20:23)
[2019-11-07] MEDS: ROSUVASTATIN CALCIUM 20 MG TAB PO SCH (20:24)
[2019-11-07] MEDS: MYCOPHENOLATE SODIUM 180 MG TAB PO SCH (21:03)
[2019-11-08] MEDS: INSULIN ASPART 100 UNITS/ML 3 ML PEN SC SCH ×6 (00:33→20:36)
[2019-11-08 04:40] LABS: Hematocrit (blood only) 30.1 % (42-52); Hemoglobin 9.9 g/dL (14.0-18.0); Mean Corpuscular Hgb Conc 32.9 g/dL (32-36); Mean Corpuscular Volume 106.4 fL (80-100); Platelet Count 218 K/uL (130-400); RDW Coefficient of Variation 16.6 % (11.5-14.5); RDW Standard Deviation 64.4 fL (36.4-46.3); Red Blood Count 2.83 M/uL (4.7-6.1); White Blood Count 9.55 K/uL (4.8-10.8)
[2019-11-08 05:00] LABS: BUN Creatinine Ratio 10.2 (10-20); Calcium 8.8 mg/dl (8.5-10.1); Creatinine Clr Calc Pharmacy 24.2 ml/min; Est GFR (African American) 28.2; Est GFR (Non-African American) 24.3; Magnesium 1.6 mg/dl (1.8-2.4); Phosphorus 3.4 mg/dl (2.5-4.9); Potassium 3.4 mmol/L (3.5-5.1)
[2019-11-08 05:04] LABS: INR 1.4 (0.9-1.1)
[2019-11-08 05:31] LABS: Partial Thromboplastin Time 82.4 Seconds (21.0-31.0)
[2019-11-08] MEDS ORDERED: Nursing to Pharmacy Communication ONE (07:06)
[2019-11-08] MEDS: PANTOprazole 40 MG in SYRINGE 0 ML IV SCH (07:09)
[2019-11-08] MEDS: INSULIN GLARGINE SOLOSTAR 100 UNITS/ML 3 ML PEN SC SCH ×2 (07:10→20:38)
[2019-11-08] MEDS: propofoL 1,000 MG/100 ML VIAL IV SCH ×2 (07:12→08:00)
[2019-11-08] MEDS: HEPARIN SODIUM/DEXTROSE 25,000 UNITS/500 ML BAG IV SCH ×3 (07:25→08:04)
[2019-11-08] MEDS: ALBUT/IPRATROP 3MG/0.5MG NEB 3 ML VIAL NEB SCH ×2 (08:07→19:08)
[2019-11-08] MEDS: TOBRAMYCIN SULFATE INH SCH ×2 (08:07→19:08)
[2019-11-08] MEDS: FLUTICASONE/VILANTEROL 100/25MCG 14 PUFFS/INHALER INH SCH (08:08)
[2019-11-08] MEDS: predniSONE 5 MG TAB PO SCH (08:09)
[2019-11-08] MEDS: AMLODIPINE BESYLATE 5 MG TAB PO SCH (08:09)
[2019-11-08] MEDS: MYCOPHENOLATE SODIUM 180 MG TAB PO SCH ×2 (08:09→20:41)
[2019-11-08] MEDS: CLOPIDOGREL BISULFATE 75 MG TAB PO SCH (08:09)
[2019-11-08] MEDS: PANTOprazole 40 MG TAB PO SCH ×2 (08:10→20:36)
[2019-11-08] MEDS: DOXYCYCLINE HYCLATE 100 MG CAP PO SCH ×2 (08:10→20:35)
[2019-11-08] MEDS: TACROLIMUS 0.5 MG CAP PO SCH ×2 (08:10→20:42)
[2019-11-08] MEDS: ACYCLOVIR 200 MG CAP PO SCH ×2 (08:10→20:40)
[2019-11-08] MEDS ORDERED: MAGNESIUM SULFATE / D5W 1 GM/100 ML BAG IV ONE (08:40)
[2019-11-08] MEDS ORDERED: POTASSIUM CHLORIDE 20 MEQ/15 ML UDC PO ONE (08:41)
[2019-11-08 12:30] LABS: Partial Thromboplastin Ratio 2.4
--- NOTE | 2019-11-08 12:31 | Nephrology Progress Note ---
Date of Service November 08, 2019 Assessment & Plan (1) ESRD (end stage renal disease) on dialysis: HD tomorrow per TTS schedule. AVF functioning well. Dialysis catheter may be removed. Mane can be discontinued per nursing protocol. Continue Bumex to encourage urine output. Diuretic may be changed to PO. Oral KCl 20 mEq daily. 1st dialysis treatment on 10/31/2019. Post discharge, plan is to start outpatient dialysis at [facility]. 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 Venofer 200 mg daily x 5 doses completed. (3) Hyperparathyroidism: PO4 binder held pending improved PO intake. (4) HTN (hypertension): BP appropriately controlled. (5) Lung transplant status: (6) Diabetes mellitus, type II: Admission and Anticipated Discharge Date Admission Date: October 30, 2019 Subjective No overnight events. Shaun is slightly confused and agitated. Tolerated HD well yesterday. No complications with treatment. Qb adequate via AVF. Review of Systems Review of Systems: All systems reviewed & are unremarkable except as noted in HPI & below Physical Exam Constitutional: + thin and + frail appearing; no acute distress Eyes: + anicteric sclerae Neck: normal visual inspection and trachea midline Respiratory: normal respiratory effort Auscultation: lungs clear to auscultation bilaterally Cardiovascular: Rate/Rhythm: regular rate Vessels: + JVD Extremities: + AV fistula (R RC +thrill and bruit); no edema Musculoskeletal: Extremities: no cyanosis and no clubbing Skin: + turgor decreased Results & Data ([facility]) Vital Signs (Past 12 Hours) Vital Signs Temp Pulse Pulse Resp BP Pulse Ox 11/08/19 10:49 80 23 135/58 L 99 11/08/19 10:32 65 23 115/67 100 11/08/19 10:30 63 22 99 11/08/19 10:28 73 24 143/79 H 100 11/08/19 10:24 79 28 H 141/81 H 99 11/08/19 10:00 83 22 100 11/08/19 09:47 75 23 126/69 100 11/08/19 09:30 75 21 99 11/08/19 09:00 72 19 99 11/08/19 08:33 78 25 H 109/63 100 11/08/19 08:30 75 24 100 11/08/19 08:15 78 18 100 11/08/19 08:00 76 25 H 11/08/19 07:32 76 26 H 138/60 11/08/19 07:30 72 26 H 11/08/19 06:32 73 21 119/66 93 11/08/19 05:32 76 25 H 121/67 11/08/19 04:32 36.8 C 71 24 125/68 93 11/08/19 03:32 71 22 141/68 H 97 11/08/19 02:32 76 25 H 115/61 98 11/08/19 01:32 79 16 145/72 H 98 11/08/19 00:32 36.4 C L 77 22 138/78 100 Laboratory Results Laboratory Results - last 24 hr 11/06/19 11/07/19 11/07/19 09:32 16:00 16:11 WBC RBC Hgb Hct MCV MCH MCHC RDW Std Deviation RDW Coeff of Ros Plt Count MPV PT INR APTT PTT Ratio Sodium Potassium 3.6 Chloride Carbon Dioxide Anion Gap BUN Creatinine Est Cr Clr Drug Dosing Est GFR ( Amer) Est GFR (Non-Af Amer) BUN/Creatinine Ratio Glucose POC Glucose 118 H Calcium Phosphorus Magnesium Tacrolimus 11/07/19 11/08/19 11/08/19 20:16 04:26 04:26 WBC 9.55 RBC 2.83 L Hgb 9.9 L Hct 30.1 L MCV 106.4 H MCH 35.0 H MCHC 32.9 RDW Std Deviation 64.4 H RDW Coeff of Ros 16.6 H Plt Count 218 MPV 11.0 H PT 15.0 H INR 1.4 H APTT 82.4 H* PTT Ratio 3.0 Sodium Potassium Chloride Carbon Dioxide Anion Gap BUN Creatinine Est Cr Clr Drug Dosing Est GFR ( Amer) Est GFR (Non-Af Amer) BUN/Creatinine Ratio Glucose POC Glucose 120 H Calcium Phosphorus Magnesium Tacrolimus 11/08/19 11/08/19 11/08/19 04:26 07:24 11:07 WBC RBC Hgb Hct MCV MCH MCHC RDW Std Deviation RDW Coeff of Ros Plt Count MPV PT INR APTT PTT Ratio Sodium 138 Potassium 3.4 L Chloride 102 Carbon Dioxide 23 Anion Gap 13.0 H BUN 25 H Creatinine 2.46 H D Est Cr Clr Drug Dosing 24.2 Est GFR ( Amer) 28.2 Est GFR (Non-Af Amer) 24.3 BUN/Creatinine Ratio 10.2 Glucose 104 H POC Glucose 92 124 H Calcium 8.8 Phosphorus 3.4 D Magnesium 1.6 L Tacrolimus 11/08/19 11:56 WBC RBC Hgb Hct MCV MCH MCHC RDW Std Deviation RDW Coeff of Ros Plt Count MPV PT INR APTT Pending PTT Ratio Pending Sodium Potassium Chloride Carbon Dioxide Anion Gap BUN Creatinine Est Cr Clr Drug Dosing Est GFR ( Amer) Est GFR (Non-Af Amer) BUN/Creatinine Ratio Glucose POC Glucose Calcium Phosphorus Magnesium Tacrolimus PG Care Time/CCT Total # of Minutes Spent Total Time Spent with Patient: Total time spent is greater than 50% in coordination of care (as documented) at patient's floor/unit and/or counseling patient: Coding Level of Care Code 54887 Subseq Hosp Care Lvl 3 Diagnoses ESRD (end stage renal disease) on dialysis N18.6; Z99.2 Anemia secondary to renal failure D63.1 Hyperparathyroidism E21.3 HTN (hypertension) I10 Hypertension type: unspecified Lung transplant status Z94.2 Diabetes mellitus, type II E11.9 (1) HTN (hypertension) Hypertension type: unspecified Qualified Code(s): I10 - Essential (primary) hypertension
[2019-11-08 12:41] LABS: Partial Thromboplastin Time 66.1 Seconds (21.0-31.0)
[2019-11-08] MEDS: POSACONAZOLE 100 MG PO SCH (16:31)
[2019-11-08] MEDS: BUMETANIDE 4 MG in SYRINGE 0 ML IV SCH (16:31)
[2019-11-08] MEDS: MAGNESIUM OXIDE 400 MG TAB PO SCH (16:31)
--- NOTE | 2019-11-08 17:49 | Hospitalist Progress Note ---
Date of Service November 08, 2019 Assessment & Plan (1) Acute hypoxemic respiratory failure: Acute respiratory failure with hypoxia Ventilator dependent respiratory failure: Extubated 11/05/19 Secondary to pulmonary edema Other possibilities include pneumonia Volume overload in setting of Acute Systolic CHF, ESRD, IPF GPR Bacteremia Likely contaminant --CXR:Increasing left lung infiltrates concerning for worsening pneumonia in the transplanted left lung. Chronic right mid to basilar infiltrates compatible with chronic interstitial lung disease. Involvement of pneumonia may also be present. 3. Suspected right pleural effusion. Cardiomegaly. Some degree of volume overload or congestive change is difficult to exclude. --COVID-19 screen and influenza screen are negative Had bronchoscopy on 11/01/19 Blood culture from 10/31/19 growing GPR.Likely contaminant. Repeat blood cultures negative so far. BAL cultures negative Completed zosyn therapy Appreciate Critical care Input Currently saturating well on room air Volume status managed through dialysis Planned for HD tmw Continue IV diuretics Appreciate Welt Pocket Machine Operator Input Needs Outpatient HD set up prior to discharge Afib Bradycardia ? SSS Prolonged QTC Resume Beta-cally as able as bradycardia resolved Avoid QTC prolonging meds Appreciate Cardiology Input Supratherapeutic INR H/O DVT INR reversed Resume Coumadin as able Continue heparin drip for now ESRD H/O OLIVIER, Tobramycin, HTN, DM H/O diabetic retinopathy Appreciate Nephrology Input HD as per Nephrology Avoid nephrotoxic agents as able Monitor electrolytes and renal function Elevated Troponin In setting of end-stage renal disease, CHF Likely demand ischemia EKG showed no signs of acute ischemia Molding Machine Operator Helper evaluation completed H/O CAD S/P Stent Resume Metoprolol as able Continue Statin, plavix 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 transplant Center Continue immunosuppressive/antimicrobial suppression regimen Discussed with Patient [facility] Coordinator Ms. Mari Teixeira on 11/01/19 Contact NO:[phone] Current medications have been adjusted appropriately for renal function Transplant physician event management consultant:l [phone] Washington on [facility] lung transplant team on 11/02/2019 who recommend to continue with home dose of antibiotic/antirejection meds, to continue current dose of acyclovir and to get tacro trough level on 11/06/19. Tacro level sent Plan to update Transplant physician prior to discharge DM II Hb A1C: 5.24 September 2019 Continue Insulin therapy Monitor BGs DVT Px: on IV Heparin Code Status Full code Disposition PT/OT prior to discharge Admission and Anticipated Discharge Date Admission Date: October 30, 2019 Subjective Patient is seen and examined at bedside Denies any chest pain, shortness of breath, dizziness, nausea, abdominal pain Offers no complaints Plan for hemodialysis tomorrow Physical Exam Physical Exam: Physical Exam: Vitals signs as noted above General Appearance:Thin, no distress Head: normocephalic, Atraumatic Eyes: normal inspection, EOMI Neck: supple, Trachea midline Respiratory/Chest: Decreased breath sounds, CTA Cardiovascular: Irregularly irregular,Systolic murmur Abdomen/GI:Soft, Non tender, Bowel sounds present Extremities/Musculoskelatal:normal inspection, no edema Neurologic/Psych:AAOX3, grossly no focal neurological deficits Skin: normal color, warm Results & Data Results & Data ([facility]) Vital Signs (Past 12 Hours) Vital Signs Temp Pulse Pulse Resp BP BP Pulse Ox 11/08/19 16:44 37.1 C 67 24 117/68 97 11/08/19 14:23 96 11/08/19 10:49 80 23 135/58 L 99 11/08/19 10:32 65 23 115/67 100 11/08/19 10:30 63 22 99 11/08/19 10:28 73 24 143/79 H 100 11/08/19 10:24 79 28 H 141/81 H 99 11/08/19 10:00 83 22 100 11/08/19 09:47 75 23 126/69 100 11/08/19 09:30 75 21 99 11/08/19 09:00 72 19 99 11/08/19 08:33 78 25 H 109/63 100 11/08/19 08:30 75 24 100 11/08/19 08:15 78 18 100 11/08/19 08:00 76 25 H 11/08/19 07:32 76 26 H 138/60 11/08/19 07:30 72 26 H 11/08/19 06:32 73 21 119/66 93 Laboratory Results Short CBC 11/08/19 Range/Units 04:26 WBC 9.55 (4.8-10.8) K/uL Hgb 9.9 L (14.0-18.0) g/dL Hct 30.1 L (42-52) % Plt Count 218 (130-400) K/uL BMP 11/08/19 04:26 Sodium 138 Potassium 3.4 L Chloride 102 Carbon Dioxide 23 BUN 25 H Creatinine 2.46 H D Glucose 104 H Calcium 8.8
[2019-11-08] MEDS: ROSUVASTATIN CALCIUM 20 MG TAB PO SCH (20:41)
[2019-11-08] MEDS: MENTHOL-ZINC OXIDE 360 APPLN/120 GM TUBE EXT PRN (23:26)
[2019-11-09 05:10] LABS: Hematocrit (blood only) 31.8 % (42-52); Hemoglobin 10.1 g/dL (14.0-18.0); Mean Corpuscular Hemoglobin 34.1 pg (25-34); Mean Corpuscular Hgb Conc 31.8 g/dL (32-36); Mean Corpuscular Volume 107.4 fL (80-100); Mean Platelet Volume 11.4 fL (7.4-10.4); Platelet Count 249 K/uL (130-400); RDW Coefficient of Variation 16.3 % (11.5-14.5); RDW Standard Deviation 64.3 fL (36.4-46.3); Red Blood Count 2.96 M/uL (4.7-6.1); White Blood Count 8.78 K/uL (4.8-10.8)
[2019-11-09 05:29] LABS: Partial Thromboplastin Ratio 2.4
[2019-11-09 05:35] LABS: BUN Creatinine Ratio 9.3 (10-20); Calcium 9.4 mg/dl (8.5-10.1); Creatinine Clr Calc Pharmacy 16.5 ml/min; Est GFR (African American) 17.6; Est GFR (Non-African American) 15.2; Magnesium 1.9 mg/dl (1.8-2.4); Potassium 3.3 mmol/L (3.5-5.1)
[2019-11-09 05:51] LABS: Partial Thromboplastin Time 66.7 Seconds (21.0-31.0)
[2019-11-09] MEDS: ALBUT/IPRATROP 3MG/0.5MG NEB 3 ML VIAL NEB SCH ×2 (07:12→20:01)
[2019-11-09] MEDS: TOBRAMYCIN SULFATE INH SCH ×2 (07:12→20:01)
[2019-11-09] MEDS: HEPARIN SODIUM/DEXTROSE 25,000 UNITS/500 ML BAG IV SCH ×2 (07:49→07:55)
[2019-11-09] MEDS: INSULIN ASPART 100 UNITS/ML 3 ML PEN SC SCH ×4 (07:50→20:22)
[2019-11-09] MEDS: FLUTICASONE/VILANTEROL 100/25MCG 14 PUFFS/INHALER INH SCH (07:51)
[2019-11-09] MEDS: predniSONE 5 MG TAB PO SCH (07:52)
[2019-11-09] MEDS: ACYCLOVIR 200 MG CAP PO SCH ×2 (07:52→20:25)
[2019-11-09] MEDS: DOXYCYCLINE HYCLATE 100 MG CAP PO SCH ×2 (07:52→20:25)
[2019-11-09] MEDS: PANTOprazole 40 MG TAB PO SCH ×2 (07:52→20:23)
[2019-11-09] MEDS: MYCOPHENOLATE SODIUM 180 MG TAB PO SCH ×2 (07:52→20:22)
[2019-11-09] MEDS: TACROLIMUS 0.5 MG CAP PO SCH ×2 (07:52→20:24)
[2019-11-09] MEDS: CLOPIDOGREL BISULFATE 75 MG TAB PO SCH (07:52)
[2019-11-09] MEDS: AMLODIPINE BESYLATE 5 MG TAB PO SCH (07:53)
[2019-11-09] MEDS: SULFA/TRIMETH 400/80MG TAB PO SCH (07:54)
[2019-11-09] MEDS ORDERED: POTASSIUM CHLORIDE 10 MEQ TABCR PO ONE (08:06)
[2019-11-09] MEDS: MONTELUKAST SODIUM 10 MG TABLET PO SCH (08:41)
[2019-11-09] MEDS ORDERED: METOPROLOL SUCC 50MG EXT REL TAB PO SCH (09:00)
--- NOTE | 2019-11-09 09:37 | Nephrology Progress Note ---
Date of Service November 09, 2019 Assessment & Plan (1) ESRD (end stage renal disease) on dialysis: HD today for clearance. UF goal 1 L. 4 K bath for hypokalemia AVF with adequate thrill and bruit. qb goal 400. Mane can be discontinued per nursing protocol. Continue Bumex to encourage urine output. Diuretic may be changed to PO. Oral KCl 20 mEq daily. 1st dialysis treatment on 10/31/2019. Post discharge, plan is to start outpatient dialysis at [facility]. Preliminary intake and orders have been provided to [facility]. 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 Venofer 200 mg daily x 5 doses completed. (3) Hyperparathyroidism: PO4 binder held pending improved PO intake. (4) HTN (hypertension): BP appropriately controlled. (5) Lung transplant status: (6) Diabetes mellitus, type II: Admission and Anticipated Discharge Date Admission Date: October 30, 2019 Subjective Confusion and agitation noted overnight. Improvement this morning. Mr. Bill was seen at the start of hemodialysis. He continues to have adequate urine output. No fevers. Breathing comfortably. Review of Systems Review of Systems: All systems reviewed & are unremarkable except as noted in HPI & below Physical Exam Physical Exam: Deferred due to COVID 19 pandemic. FIO2 30%. PEEP 5. BP acceptable. Heart rate appropriate. Qb at goal. Cardiovascular: Rate/Rhythm: regular rate Extremities: + AV fistula (R RC +thrill and bruit); no edema Results & Data ([facility]) Vital Signs (Past 12 Hours) Vital Signs Temp Pulse Pulse Pulse Resp BP BP 11/09/19 09:20 61 116/55 L 11/09/19 09:08 37.4 C 70 70 118/66 11/09/19 08:01 66 23 127/62 11/09/19 07:16 66 18 11/09/19 04:32 70 21 114/58 L 11/09/19 02:32 79 22 105/62 11/08/19 23:46 66 11/08/19 23:24 36.6 C 84 20 153/76 H Pulse Ox 11/09/19 09:20 11/09/19 09:08 11/09/19 08:01 97 11/09/19 07:16 94 11/09/19 04:32 95 11/09/19 02:32 96 11/08/19 23:46 11/08/19 23:24 95 Laboratory Results Laboratory Results - last 24 hr 11/08/19 11/08/19 11/08/19 11:07 11:56 16:31 WBC RBC Hgb Hct MCV MCH MCHC RDW Std Deviation RDW Coeff of Ros Plt Count MPV APTT 66.1 H* PTT Ratio 2.4 Sodium Potassium Chloride Carbon Dioxide Anion Gap BUN Creatinine Est Cr Clr Drug Dosing Est GFR ( Amer) Est GFR (Non-Af Amer) BUN/Creatinine Ratio Glucose POC Glucose 124 H 117 H Calcium Magnesium 11/08/19 11/09/19 11/09/19 20:33 04:44 04:44 WBC 8.78 RBC 2.96 L Hgb 10.1 L Hct 31.8 L MCV 107.4 H MCH 34.1 H MCHC 31.8 L RDW Std Deviation 64.3 H RDW Coeff of Ros 16.3 H Plt Count 249 MPV 11.4 H APTT PTT Ratio Sodium 138 Potassium 3.3 L Chloride 103 Carbon Dioxide 24 Anion Gap 11.0 BUN 34 H Creatinine 3.64 H D Est Cr Clr Drug Dosing 16.5 Est GFR ( Amer) 17.6 Est GFR (Non-Af Amer) 15.2 BUN/Creatinine Ratio 9.3 L Glucose 86 POC Glucose 108 H Calcium 9.4 Magnesium 1.9 11/09/19 04:44 WBC RBC Hgb Hct MCV MCH MCHC RDW Std Deviation RDW Coeff of Ros Plt Count MPV APTT 66.7 H* PTT Ratio 2.4 Sodium Potassium Chloride Carbon Dioxide Anion Gap BUN Creatinine Est Cr Clr Drug Dosing Est GFR ( Amer) Est GFR (Non-Af Amer) BUN/Creatinine Ratio Glucose POC Glucose Calcium Magnesium PG Care Time/CCT Total # of Minutes Spent Total Time Spent with Patient: Total time spent is greater than 50% in coordination of care (as documented) at patient's floor/unit and/or counseling patient: Coding Level of Care Code 00666 Subseq Hosp Care Lvl 3 Diagnoses ESRD (end stage renal disease) on dialysis N18.6; Z99.2 Anemia secondary to renal failure D63.1 Hyperparathyroidism E21.3 HTN (hypertension) I10 Hypertension type: unspecified Lung transplant status Z94.2 Diabetes mellitus, type II E11.9 (1) HTN (hypertension) Hypertension type: unspecified Qualified Code(s): I10 - Essential (primary) hypertension
[2019-11-09 12:29] LABS: Partial Thromboplastin Ratio 1.9
[2019-11-09 12:30] LABS: Partial Thromboplastin Time 52.1 Seconds (21.0-31.0)
[2019-11-09] MEDS: POSACONAZOLE 100 MG PO SCH (16:57)
[2019-11-09] MEDS: MAGNESIUM OXIDE 400 MG TAB PO SCH (17:02)
[2019-11-09] MEDS: WARFARIN SOD 5 MG TAB PO SCH (17:02)
[2019-11-09] MEDS: BUMETANIDE 4 MG in SYRINGE 0 ML IV SCH (17:04)
--- NOTE | 2019-11-09 17:13 | Hospitalist Progress Note ---
Date of Service November 09, 2019 Assessment & Plan (1) Acute hypoxemic respiratory failure: Acute respiratory failure with hypoxia Ventilator dependent respiratory failure: Extubated 11/05/19 Secondary to pulmonary edema Other possibilities include pneumonia Volume overload in setting of Acute Systolic CHF, ESRD, IPF GPR Bacteremia Likely contaminant --CXR:Increasing left lung infiltrates concerning for worsening pneumonia in the transplanted left lung. Chronic right mid to basilar infiltrates compatible with chronic interstitial lung disease. Involvement of pneumonia may also be present. 3. Suspected right pleural effusion. Cardiomegaly. Some degree of volume overload or congestive change is difficult to exclude. --COVID-19 screen and influenza screen are negative Had bronchoscopy on 11/01/19 Blood culture from 10/31/19 growing GPR.Likely contaminant. Repeat blood cultures negative so far. BAL cultures negative Completed zosyn therapy Appreciate Critical care Input Currently saturating well on room air Volume status managed through dialysis, diuretics Continue PO Bumex Appreciate Configuration Developer Input Needs Outpatient HD set up prior to discharge Had HD today Afib Bradycardia ? SSS Prolonged QTC Decrease Metoprolol to 25mg daily Avoid QTC prolonging meds Appreciate Cardiology Input May need to titrate down metoprolol dose, or discontinue if persistent bradycardia Supratherapeutic INR H/O DVT INR reversed Resume Coumadin today IV heparin discontinued Monitor INR ESRD H/O OLIVIER, Tobramycin, HTN, DM H/O diabetic retinopathy Appreciate Nephrology Input HD as per Nephrology Avoid nephrotoxic agents as able Monitor electrolytes and renal function Elevated Troponin In setting of end-stage renal disease, CHF Likely demand ischemia EKG showed no signs of acute ischemia Varnish Blender evaluation completed H/O CAD S/P Stent Resume Metoprolol as able Continue Statin, plavix 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 Mari Zamarripahardikmartha on 11/01/19 Contact NO:[phone] Current medications have been adjusted appropriately for renal function Transplant physician stone rigger:l [phone] Washington on [facility] lung transplant team on 11/02/2019 who recommend to continue with home dose of antibiotic/antirejection meds, to continue current dose of acyclovir and to get tacro trough level on 11/06/19. Tacro level sent Plan to update Transplant physician prior to discharge DM II Hb A1C: 5.24 September 2019 Continue Insulin therapy Monitor BGs DVT Px: Coumadin Heparin SQ until INR is therapeutic Code Status Full code Disposition PT/OT prior to discharge Admission and Anticipated Discharge Date Admission Date: October 30, 2019 Subjective Patient is seen and examined at bedside Less agitated and more cooperative today Had dialysis today Less cough No other complaints Denies any chest pain, shortness of breath, dizziness, nausea, abdominal pain Review of Systems Review of Systems: All systems reviewed & are unremarkable except as noted in HPI & below Physical Exam Physical Exam: Physical Exam: Vitals signs as noted above General Appearance:Thin, no distress Head: normocephalic, Atraumatic Eyes: normal inspection, EOMI Neck: supple, Trachea midline Respiratory/Chest: Decreased breath sounds, CTA Cardiovascular: Irregularly irregular,Systolic murmur Abdomen/GI:Soft, Non tender, Bowel sounds present Extremities/Musculoskelatal:normal inspection, no edema Neurologic/Psych:AAOX3, grossly no focal neurological deficits Skin: normal color, warm Results & Data Results & Data ([facility]) Vital Signs (Past 12 Hours) Vital Signs Temp Pulse Pulse Pulse Resp BP BP 11/09/19 15:08 36.5 C 47 L 21 125/67 11/09/19 14:21 60 11/09/19 12:40 37.3 C 52 L 52 L 134/70 134/70 11/09/19 12:20 54 L 127/67 11/09/19 12:00 57 L 116/68 11/09/19 11:40 56 L 116/57 L 11/09/19 11:33 60 22 116/57 L 11/09/19 11:20 52 L 118/62 11/09/19 11:00 55 L 121/58 L 11/09/19 10:40 56 L 96/52 L 11/09/19 10:20 57 L 116/58 L 11/09/19 10:00 61 99/57 L 11/09/19 09:40 63 114/56 L 11/09/19 09:20 61 116/55 L 11/09/19 09:08 37.4 C 70 70 118/66 11/09/19 08:01 66 23 127/62 11/09/19 07:16 66 18 Pulse Ox 11/09/19 15:08 11/09/19 14:21 11/09/19 12:40 11/09/19 12:20 11/09/19 12:00 11/09/19 11:40 11/09/19 11:33 99 11/09/19 11:20 11/09/19 11:00 11/09/19 10:40 11/09/19 10:20 11/09/19 10:00 11/09/19 09:40 11/09/19 09:20 11/09/19 09:08 11/09/19 08:01 97 11/09/19 07:16 94 Laboratory Results Short CBC 11/09/19 Range/Units 04:44 WBC 8.78 (4.8-10.8) K/uL Hgb 10.1 L (14.0-18.0) g/dL Hct 31.8 L (42-52) % Plt Count 249 (130-400) K/uL BMP 11/09/19 04:44 Sodium 138 Potassium 3.3 L Chloride 103 Carbon Dioxide 24 BUN 34 H Creatinine 3.64 H D Glucose 86 Calcium 9.4
[2019-11-09] MEDS: HEPARIN SOD 5,000 UNIT/0.5 ML VIAL SQ SCH (20:19)
[2019-11-09] MEDS: ROSUVASTATIN CALCIUM 20 MG TAB PO SCH (20:19)
[2019-11-09] MEDS: INSULIN GLARGINE SOLOSTAR 100 UNITS/ML 3 ML PEN SC SCH (20:20)
[2019-11-10] MEDS: TOBRAMYCIN SULFATE INH SCH ×2 (07:03→19:17)
[2019-11-10] MEDS: ALBUT/IPRATROP 3MG/0.5MG NEB 3 ML VIAL NEB SCH ×2 (07:03→19:17)
[2019-11-10 07:35] LABS: Hematocrit (blood only) 32.6 % (42-52); Hemoglobin 10.2 g/dL (14.0-18.0); Mean Corpuscular Hemoglobin 34.2 pg (25-34); Mean Corpuscular Hgb Conc 31.3 g/dL (32-36); Mean Corpuscular Volume 109.4 fL (80-100); Mean Platelet Volume 11.9 fL (7.4-10.4); Platelet Count 273 K/uL (130-400); RDW Coefficient of Variation 16.8 % (11.5-14.5); RDW Standard Deviation 66.3 fL (36.4-46.3); Red Blood Count 2.98 M/uL (4.7-6.1); White Blood Count 8.99 K/uL (4.8-10.8)
[2019-11-10 07:46] LABS: INR 1.6 (0.9-1.1); Prothrombin Time 16.3 Seconds (9.0-12.0)
[2019-11-10] MEDS: MYCOPHENOLATE SODIUM 180 MG TAB PO SCH ×2 (07:48→21:03)
[2019-11-10] MEDS: CARBOHYDRATES FOR HYPOGLYCEMIA PO PRN ×2 (07:48→08:04)
[2019-11-10] MEDS: TACROLIMUS 0.5 MG CAP PO SCH ×2 (07:49→21:03)
[2019-11-10] MEDS: METOPROLOL SUCC 25MG EXT REL TAB PO SCH (07:49)
[2019-11-10] MEDS: POTASSIUM CHLORIDE 20 MEQ TABCR PO SCH (07:49)
[2019-11-10] MEDS: predniSONE 5 MG TAB PO SCH (07:49)
[2019-11-10] MEDS: FLUOXETINE HCL 20 MG CAP PO SCH (07:49)
[2019-11-10] MEDS: MONTELUKAST SODIUM 10 MG TABLET PO SCH (07:50)
[2019-11-10] MEDS: DOXYCYCLINE HYCLATE 100 MG CAP PO SCH ×2 (07:50→21:04)
[2019-11-10] MEDS: ACYCLOVIR 200 MG CAP PO SCH ×2 (07:50→21:04)
[2019-11-10] MEDS: AMLODIPINE BESYLATE 5 MG TAB PO SCH (07:50)
[2019-11-10] MEDS: CLOPIDOGREL BISULFATE 75 MG TAB PO SCH (07:50)
[2019-11-10] MEDS: PANTOprazole 40 MG TAB PO SCH ×2 (07:50→21:03)
[2019-11-10] MEDS: FLUTICASONE/VILANTEROL 100/25MCG 14 PUFFS/INHALER INH SCH (07:51)
[2019-11-10] MEDS: HEPARIN SOD 5,000 UNIT/0.5 ML VIAL SQ SCH ×2 (07:56→21:01)
[2019-11-10] MEDS: INSULIN ASPART 100 UNITS/ML 3 ML PEN SC SCH ×4 (07:56→21:03)
[2019-11-10 08:16] LABS: Calcium 9.4 mg/dl (8.5-10.1); Creatinine Clr Calc Pharmacy 20.3 ml/min; Magnesium 2.1 mg/dl (1.8-2.4); Potassium 3.5 mmol/L (3.5-5.1)
[2019-11-10] MEDS ORDERED: BUMETANIDE 1 MG TAB PO SCH (09:00)
--- NOTE | 2019-11-10 12:17 | Nephrology Progress Note ---
Date of Service November 10, 2019 Assessment & Plan (1) ESRD (end stage renal disease) on dialysis: HD TTS. AVF functioned well yesterday. s/p fistulogram with dilation of multiple areas of stenosis on 11/06/19. Continue Bumex to encourage urine output. Switched to Bumex 2 mg QAM today. Oral KCl 20 mEq daily. 1st dialysis treatment on 10/31/2019. Post discharge, plan is to continue with outpatient dialysis at [facility] TTS. Preliminary intake and orders have been provided to [facility]. (2) Anemia secondary to renal failure: Epogen 20089 units x1 dose given on 10/31/2019 and a second dose was provided 11/06. Venofer 200 mg daily x 5 doses completed on 11/05/19. (3) Hyperparathyroidism: PO4 binder held pending improved PO intake. (4) HTN (hypertension): BP appropriately controlled. (5) Lung transplant status: (6) Diabetes mellitus, type II: Admission and Anticipated Discharge Date Admission Date: October 30, 2019 Subjective No acute events overnight. Tolerated HD yesterday without complications. Net UF 1 L. BP acceptable. Adequate Qb via AVF. Mr. Bill was resting comfortably in bed this morning. He was very pleasant and denied any pain but remains somewhat confused. He was not oriented to place or time. He could not recall having dialysis yesterday. Review of Systems Review of Systems: All systems reviewed & are unremarkable except as noted in HPI & below Physical Exam Physical Exam: Deferred due to COVID 19 pandemic. Constitutional: + thin and + frail appearing; no acute distress Eyes: + anicteric sclerae Respiratory: normal respiratory effort Cardiovascular: Extremities: + AV fistula (R RC +thrill and bruit) Results & Data ([facility]) Vital Signs (Past 12 Hours) Vital Signs Temp Pulse Pulse Resp BP BP Pulse Ox 11/10/19 11:14 36.7 C 58 L 18 125/60 95 11/10/19 07:27 65 11/10/19 07:17 36.6 C 61 16 142/57 H 98 11/10/19 07:07 68 16 98 11/10/19 03:47 37.2 C 61 20 118/63 97 11/10/19 00:25 70 PG Care Time/CCT Total # of Minutes Spent Total Time Spent with Patient: Total time spent is greater than 50% in coordination of care (as documented) at patient's floor/unit and/or counseling patient: Coding Level of Care Code 89386 Subseq Hosp Care Lvl 3 Diagnoses ESRD (end stage renal disease) on dialysis N18.6; Z99.2 Anemia secondary to renal failure D63.1 Hyperparathyroidism E21.3 HTN (hypertension) I10 Hypertension type: unspecified Lung transplant status Z94.2 Diabetes mellitus, type II E11.9 (1) HTN (hypertension) Hypertension type: unspecified Qualified Code(s): I10 - Essential (primary) hypertension
[2019-11-10] MEDS: WARFARIN SOD 5 MG TAB PO SCH (15:50)
[2019-11-10] MEDS: POSACONAZOLE 100 MG PO SCH (15:50)
[2019-11-10] MEDS: MAGNESIUM OXIDE 400 MG TAB PO SCH (15:50)
--- NOTE | 2019-11-10 19:39 | Hospitalist Progress Note ---
Date of Service November 10, 2019 Assessment & Plan (1) Acute hypoxemic respiratory failure: Acute respiratory failure with hypoxia Ventilator dependent respiratory failure: Extubated 11/05/19 Secondary to pulmonary edema Other possibilities include pneumonia Volume overload in setting of Acute Systolic CHF, ESRD, IPF GPR Bacteremia Likely contaminant --CXR:Increasing left lung infiltrates concerning for worsening pneumonia in the transplanted left lung. Chronic right mid to basilar infiltrates compatible with chronic interstitial lung disease. Involvement of pneumonia may also be present. 3. Suspected right pleural effusion. Cardiomegaly. Some degree of volume overload or congestive change is difficult to exclude. --COVID-19 screen and influenza screen are negative Had bronchoscopy on 11/01/19 Blood culture from 10/31/19 growing GPR.Likely contaminant. Repeat blood cultures negative so far. BAL cultures negative Completed zosyn therapy Appreciate Critical care Input Volume status managed through dialysis, diuretics Continue PO Bumex 2mg daily Appreciate Coiled Tubing Operator Input Needs Outpatient HD set up prior to discharge Saturating well on room air Afib Bradycardia ? SSS Prolonged QTC Continue Metoprolol at decreased dose:25mg daily Appreciate Cardiology Input Supratherapeutic INR: H/O DVT INR now subtherapeutic Continue Coumadin Monitor INR : 1.6 today ESRD H/O OLIVIER, Tobramycin, HTN, DM H/O diabetic retinopathy Appreciate Nephrology Input HD as per Nephrology Avoid nephrotoxic agents as able Monitor electrolytes and renal function Elevated Troponin In setting of end-stage renal disease, CHF Likely demand ischemia EKG showed no signs of acute ischemia Recreation Engineer evaluation completed H/O CAD S/P Stent Resume Metoprolol as able Continue Statin, plavix 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 Mari Teixeira on 11/01/19 Contact NO:[phone] Current medications have been adjusted appropriately for renal function Transplant physician general merchandise salesperson:l [phone] Washington on [facility] lung transplant team on 11/02/2019 who recommend to continue with home dose of antibiotic/antirejection meds, to continue current dose of acyclovir and to get tacro trough level on 11/06/19. Tacro level sent Plan to update Transplant physician prior to discharge DM II Hb A1C: 5.24 September 2019 Continue Insulin therapy Monitor BGs DVT Px: Coumadin Heparin SQ until INR is therapeutic Code Status Full code Disposition My Need Rehab placement Admission and Anticipated Discharge Date Admission Date: October 30, 2019 Subjective Patient is seen and examined at bedside Confused intermittently Cooperative today as per RN Minimal cough No new complaints Denies any chest pain, shortness of breath, dizziness, nausea, abdominal pain Review of Systems Review of Systems: All systems reviewed & are unremarkable except as noted in HPI & below Physical Exam Physical Exam: Physical Exam: Vitals signs as noted above General Appearance:Thin, no distress Head: normocephalic, Atraumatic Eyes: normal inspection, EOMI Neck: supple, Trachea midline Respiratory/Chest: Decreased breath sounds, CTA Cardiovascular: Irregularly irregular,Systolic murmur Abdomen/GI:Soft, Non tender, Bowel sounds present Extremities/Musculoskelatal:normal inspection, no edema Neurologic/Psych:AAOX3, grossly no focal neurological deficits Skin: normal color, warm Results & Data Results & Data ([facility]) Vital Signs (Past 12 Hours) Vital Signs Temp Pulse Pulse Resp BP BP Pulse Ox 11/10/19 19:29 61 18 97 11/10/19 19:17 36.3 C L 61 18 121/62 97 11/10/19 19:15 67 18 98 11/10/19 15:40 36.7 C 57 L 20 136/67 95 11/10/19 14:53 61 11/10/19 11:14 36.7 C 58 L 18 125/60 95 Laboratory Results Short CBC 11/10/19 Range/Units 06:51 WBC 8.99 (4.8-10.8) K/uL Hgb 10.2 L (14.0-18.0) g/dL Hct 32.6 L (42-52) % Plt Count 273 (130-400) K/uL BMP 11/10/19 06:51 Sodium 142 Potassium 3.5 Chloride 105 Carbon Dioxide 23 BUN 24 H Creatinine 3.02 H D Glucose 74 Calcium 9.4
[2019-11-10] MEDS: ROSUVASTATIN CALCIUM 20 MG TAB PO SCH (21:01)
[2019-11-10] MEDS: INSULIN GLARGINE SOLOSTAR 100 UNITS/ML 3 ML PEN SC SCH (21:02)
[2019-11-11 06:31] LABS: INR 2.4 (0.9-1.1); Prothrombin Time 24.6 Seconds (9.0-12.0)
[2019-11-11 06:46] LABS: BUN Creatinine Ratio 8.5 (10-20); Calcium 9.6 mg/dl (8.5-10.1); Creatinine Clr Calc Pharmacy 15.1 ml/min; Est GFR (African American) 14.7; Est GFR (Non-African American) 12.7; Potassium 3.7 mmol/L (3.5-5.1)
[2019-11-11] MEDS: TOBRAMYCIN SULFATE INH SCH ×2 (07:14→19:53)
[2019-11-11] MEDS: ALBUT/IPRATROP 3MG/0.5MG NEB 3 ML VIAL NEB SCH ×2 (07:14→19:53)
[2019-11-11] MEDS: BUMETANIDE 1 MG TAB PO SCH (09:16)
[2019-11-11] MEDS: FLUTICASONE/VILANTEROL 100/25MCG 14 PUFFS/INHALER INH SCH (09:16)
[2019-11-11] MEDS: AMLODIPINE BESYLATE 5 MG TAB PO SCH (09:16)
[2019-11-11] MEDS: INSULIN ASPART 100 UNITS/ML 3 ML PEN SC SCH ×4 (09:16→21:52)
[2019-11-11] MEDS: TACROLIMUS 0.5 MG CAP PO SCH ×3 (09:17→21:50)
[2019-11-11] MEDS: HEPARIN SOD 5,000 UNIT/0.5 ML VIAL SQ SCH (09:17)
[2019-11-11] MEDS: METOPROLOL SUCC 25MG EXT REL TAB PO SCH (09:17)
[2019-11-11] MEDS: MYCOPHENOLATE SODIUM 180 MG TAB PO SCH ×3 (09:17→21:48)
[2019-11-11] MEDS: FLUOXETINE HCL 20 MG CAP PO SCH ×2 (09:17→09:55)
[2019-11-11] MEDS: predniSONE 5 MG TAB PO SCH ×2 (09:18→09:55)
[2019-11-11] MEDS: POTASSIUM CHLORIDE 20 MEQ TABCR PO SCH ×2 (09:18→09:55)
[2019-11-11] MEDS: DOXYCYCLINE HYCLATE 100 MG CAP PO SCH ×3 (09:18→21:54)
[2019-11-11] MEDS: PANTOprazole 40 MG TAB PO SCH ×3 (09:18→21:54)
[2019-11-11] MEDS: CLOPIDOGREL BISULFATE 75 MG TAB PO SCH ×2 (09:18→09:55)
[2019-11-11] MEDS: ACYCLOVIR 200 MG CAP PO SCH ×3 (09:18→21:54)
[2019-11-11] MEDS: MONTELUKAST SODIUM 10 MG TABLET PO SCH ×2 (09:18→09:55)
--- NOTE | 2019-11-11 11:20 | Nephrology Progress Note ---
Date of Service November 11, 2019 Assessment & Plan (1) ESRD (end stage renal disease) on dialysis: -- HD today to maintain TTS schedule -- Orders have been entered into EMR and HD RN notified -- Continue Bumex 2 mg po daily to promote UO in between HD sessions -- Discharge planning to set up outpatient HD TTS at [facility] -- Fistulogram completed 11/06/[address] Oconnell. Multiple stenotic areas were angioplastied (2) Anemia secondary to renal failure: -- Epogen 61389 units x1 dose given on 10/31/2019 and a second dose was provided 11/06 -- Venofer 1 g infusion completed 11/05/19 (3) HTN (hypertension): -- BP well controlled. No change to current medical regimen (4) Lung transplant recipient: -- s/p L lung transplant at [facility] due to IPF Admission and Anticipated Discharge Date Admission Date: October 30, 2019 Subjective Mr. Bill was seen & examined in his hospital room this morning. He was oriented to self only. He denies fever, angina or dyspnea and appeared to understand when I explained that he was due to HD today Review of Systems Constitutional: + weakness; no fever Eyes: no worsening vision and no problem reported Ear, Nose, Mouth, Throat: no problem reported Respiratory: no cough and no dyspnea Cardiovascular: no chest pain, no palpitations and no edema Gastrointestinal: no abdominal pain, no nausea, no vomiting and no diarrhea/loose stools Genitourinary: no dysuria, no urinary hesitancy and no hematuria Musculoskeletal: no back pain Integumentary: no rash Neurologic: + confusion Physical Exam Constitutional: + frail appearing; not in distress Eyes: PERRL, conjunctivae normal, anicteric sclerae ENMT: external ear and nose normal, oropharynx normal Neck: trachea midline, no thyromegaly Respiratory: normal respiratory effort, lungs clear to auscultation coarse BS on L Cardiovascular: RRR, no murmur, no edema Extremities: + AV fistula (+ bruit) Gastrointestinal (Abdomen): normal bowel sounds, soft, nontender, no hepatosplenomegaly Musculoskeletal: Extremities: no cyanosis Skin: no rashes, warm and dry Neurologic: awake; not confused Results & Data ([facility]) Vital Signs (Past 12 Hours) Vital Signs Temp Pulse Pulse Resp BP Pulse Ox 11/11/19 08:04 36.5 C 109 H 20 124/62 93 11/11/19 07:14 51 L 18 93 11/11/19 04:22 36.3 C L 52 L 16 128/65 93 11/11/19 00:23 61 Laboratory Results Laboratory Tests 11/10/19 11/11/19 06:51 05:43 WBC 8.99 Hgb 10.2 L Hct 32.6 L Plt Count 273 Sodium 140 Potassium 3.7 Chloride 104 Carbon Dioxide 24 BUN 36 H Creatinine 4.22 H D Glucose 97 PG Care Time/CCT Total # of Minutes Spent Total Time Spent with Patient: Total time spent is greater than 50% in coordination of care (as documented) at patient's floor/unit and/or counseling patient: Coding Level of Care Code 86989 Subseq Hosp Care Lvl 3 Diagnoses ESRD (end stage renal disease) on dialysis N18.6; Z99.2 Anemia secondary to renal failure D63.1 HTN (hypertension) I10 Hypertension type: unspecified Lung transplant recipient Z94.2 (1) HTN (hypertension) Hypertension type: unspecified Qualified Code(s): I10 - Essential (primary) hypertension
--- NOTE | 2019-11-11 15:18 | CT Scan Report ---
HEAD CT NONCONTRAST CT DOSE: 810.83 mGy.cm HISTORY: Altered mental status TECHNIQUE: Multiaxial CT images of the head were performed without the use of intravenous contrast. A utomated exposure control was utilized for this study. A dose lowering technique was utilized adheri ng to the principles of ALARA. Comparison: None. Findings: The paranasal sinuses and mastoid air cells are clear. The calvarium and skull base are int act. There is no mass, hematoma, midline shift, acute infarct. White matter hypodensity is nonspecifi c but suggestive of microvascular ischemic change. The ventricles and sulci demonstrate mild age-rela remberto involutional changes. Old lacunar infarct seen within the right basal ganglia. There is a right g lobe prosthesis. Impression: No acute intracranial abnormality. 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. ACT 112: Negative or not required by law. Electronically signed by: Alexandro Frye M.D. 11/11/2019 3:17 PM
[2019-11-11] MEDS ORDERED: WARFARIN SOD 2.5 MG TAB PO SCH (16:00)
[2019-11-11] MEDS: MAGNESIUM OXIDE 400 MG TAB PO SCH (16:45)
[2019-11-11] MEDS: POSACONAZOLE 100 MG PO SCH (16:45)
[2019-11-11] MEDS: ACETAMINOPHEN 325 MG TAB PO PRN (16:46)
--- NOTE | 2019-11-11 17:59 | Hospitalist Progress Note ---
Date of Service November 11, 2019 Assessment & Plan (1) Acute hypoxemic respiratory failure: Acute respiratory failure with hypoxia Ventilator dependent respiratory failure: Extubated 11/05/19 Secondary to pulmonary edema Other possibilities include pneumonia Volume overload in setting of Acute Systolic CHF, ESRD, IPF GPR Bacteremia Likely contaminant Repeat Blood Cx:Negative --CXR:Increasing left lung infiltrates concerning for worsening pneumonia in the transplanted left lung. Chronic right mid to basilar infiltrates compatible with chronic interstitial lung disease. Involvement of pneumonia may also be present. 3. Suspected right pleural effusion. Cardiomegaly. Some degree of volume overload or congestive change is difficult to exclude. --COVID-19 screen and influenza screen are negative Had bronchoscopy on 11/01/19 Blood culture from 10/31/19 growing GPR.Likely contaminant. Repeat blood cultures negative so far. BAL cultures negative Completed zosyn therapy Appreciate Critical care Input Volume status managed through dialysis, diuretics Continue PO Bumex 2mg daily Appreciate Director Of Food And Nutrition Services Input Needs Outpatient HD set up prior to discharge Saturating well on room air HD as per Nephrology Afib Bradycardia ? SSS Prolonged QTC Metoprolol held Appreciate Cardiology Input Will request Cardiology to re-eval if bradycardia persists or has significant pauses Altered Mental Status Likely Delirium CT head: No acute intracranial abnormality. 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 Mari Teixeira on 11/01/19 Contact NO:[phone] Current medications have been adjusted appropriately for renal function Transplant physician over the horizon targeting supervisor:l [phone] Washington on [facility] lung transplant team on 11/02/2019 who recommend to continue with home dose of antibiotic/antirejection meds, to continue current dose of acyclovir and to get tacro trough level on 11/06/19. Tacro level sent Plan to update Transplant physician prior to discharge DM II Hb A1C: 5.24 September 2019 Continue Insulin therapy Monitor BGs DVT Px: Coumadin Code Status Full code Disposition Needs Rehab placement Admission and Anticipated Discharge Date Admission Date: October 30, 2019 Subjective Patient is seen and examined at bedside Confused today Bradycardia noted, Beta cally held Discussed with patient's family in detail Minimal cough Denies any chest pain, SOB, dizziness, nausea, abdominal pain Planned for HD today Review of Systems Review of Systems: All systems reviewed & are unremarkable except as noted in HPI & below Physical Exam Physical Exam: Physical Exam: Vitals signs as noted above General Appearance:Thin, no distress Head: normocephalic, Atraumatic Eyes: normal inspection, EOMI Neck: supple, Trachea midline Respiratory/Chest: Decreased breath sounds, CTA Cardiovascular: Irregularly irregular,Systolic murmur Abdomen/GI:Soft, Non tender, Bowel sounds present Extremities/Musculoskelatal:normal inspection, no edema Neurologic/Psych:AAOX3, grossly no focal neurological deficits Skin: normal color, warm Results & Data Results & Data ([place]) Vital Signs (Past 12 Hours) Vital Signs Temp Pulse Pulse Pulse Resp BP BP 11/11/19 17:40 50 L 108/65 11/11/19 17:20 52 L 90/56 L 11/11/19 17:00 56 L 110/58 L 11/11/19 16:40 66 111/70 11/11/19 16:20 60 108/54 L 11/11/19 16:00 49 L 140/66 11/11/19 15:36 36.9 C 55 L 11/11/19 15:31 36.5 C 109 H 18 116/58 L 11/11/19 11:32 36.5 C 52 L 18 118/61 11/11/19 09:00 57 L 11/11/19 08:04 36.5 C 109 H 20 124/62 11/11/19 07:14 51 L 18 Pulse Ox 11/11/19 17:40 11/11/19 17:20 11/11/19 17:00 11/11/19 16:40 11/11/19 16:20 11/11/19 16:00 11/11/19 15:36 11/11/19 15:31 98 11/11/19 11:32 98 11/11/19 09:00 11/11/19 08:04 93 11/11/19 07:14 93 Laboratory Results [facility] 11/11/19 05:43 Sodium 140 Potassium 3.7 Chloride 104 Carbon Dioxide 24 BUN 36 H Creatinine 4.22 H D Glucose 97 Calcium 9.6
[2019-11-11] MEDS: ROSUVASTATIN CALCIUM 20 MG TAB PO SCH (21:51)
[2019-11-11] MEDS: INSULIN GLARGINE SOLOSTAR 100 UNITS/ML 3 ML PEN SC SCH (21:55)
[2019-11-12] MEDS: ALBUT/IPRATROP 3MG/0.5MG NEB 3 ML VIAL NEB SCH ×2 (07:14→19:11)
[2019-11-12] MEDS: TOBRAMYCIN SULFATE INH SCH ×2 (07:15→19:11)
[2019-11-12 07:52] LABS: BUN Creatinine Ratio 5.5 (10-20); Calcium 9.6 mg/dl (8.5-10.1); Creatinine Clr Calc Pharmacy 19.7 ml/min; Est GFR (African American) 21.3; Est GFR (Non-African American) 18.4; Potassium 3.7 mmol/L (3.5-5.1)
[2019-11-12 07:53] LABS: INR 3.6 (0.9-1.1); Prothrombin Time 35.6 Seconds (9.0-12.0)
[2019-11-12] MEDS: ACETAMINOPHEN 325 MG TAB PO PRN (08:28)
[2019-11-12] MEDS: DOXYCYCLINE HYCLATE 100 MG CAP PO SCH ×2 (08:29→20:48)
[2019-11-12] MEDS: ACYCLOVIR 200 MG CAP PO SCH ×2 (08:30→20:48)
[2019-11-12] MEDS: POTASSIUM CHLORIDE 20 MEQ TABCR PO SCH (08:30)
[2019-11-12] MEDS: CLOPIDOGREL BISULFATE 75 MG TAB PO SCH (08:30)
[2019-11-12] MEDS: AMLODIPINE BESYLATE 5 MG TAB PO SCH (08:30)
[2019-11-12] MEDS: predniSONE 5 MG TAB PO SCH (08:30)
[2019-11-12] MEDS: PANTOprazole 40 MG TAB PO SCH ×2 (08:30→20:48)
[2019-11-12] MEDS: FLUTICASONE/VILANTEROL 100/25MCG 14 PUFFS/INHALER INH SCH (08:31)
[2019-11-12] MEDS: BUMETANIDE 1 MG TAB PO SCH (08:31)
[2019-11-12] MEDS: MYCOPHENOLATE SODIUM 180 MG TAB PO SCH ×2 (08:31→20:49)
[2019-11-12] MEDS: MONTELUKAST SODIUM 10 MG TABLET PO SCH (08:31)
[2019-11-12] MEDS: TACROLIMUS 0.5 MG CAP PO SCH ×2 (08:31→20:54)
[2019-11-12] MEDS: INSULIN ASPART 100 UNITS/ML 3 ML PEN SC SCH ×4 (08:50→20:03)
--- NOTE | 2019-11-12 10:06 | Electrocardiogram Report ---
Test Reason : Blood Pressure : / mmHG Vent. Rate : 069 BPM Atrial Rate : 070 BPM P-R Int : 000 ms QRS Dur : 132 ms QT Int : 460 ms P-R-T Axes : 000 -48 101 degrees QTc Int : 492 ms Atrial fibrillation Left anterior fascicular block Non-specific intra-ventricular conduction block Voltage criteria for left ventricular hypertrophy T wave abnormality, consider lateral ischemia Abnormal ECG When compared with ECG of 30-OCT-2019 18:28, No significant change was found Confirmed by Clyde Diaz ([id number]) on 11/12/2019 10:05:46 AM Referred By: REFERRED SELF Confirmed By:Clyde Diaz
--- NOTE | 2019-11-12 11:53 | Nephrology Progress Note ---
Date of Service November 12, 2019 Assessment & Plan (1) ESRD (end stage renal disease) on dialysis: -- HD conpleted yesterday without complication. 1 L UF obtained -- Will plan next HD for Wednesday to maintain TTS schedule -- Continue Bumex 2 mg po daily to promote UO in between HD sessions -- Discharge planning to set up outpatient HD TTS at [facility] -- Fistulogram completed 11/06/[address] Oconnell. Multiple stenotic areas were angioplastied (2) Anemia secondary to renal failure: -- Epogen 12084 units x1 dose given on 10/31/2019 and a second dose was provided 11/06 -- Venofer 1 g infusion completed 11/05/19 (3) HTN (hypertension): -- BP well controlled. No change to current medical regimen (4) Lung transplant recipient: -- s/p L lung transplant at [facility] due to IPF Admission and Anticipated Discharge Date Admission Date: October 30, 2019 Subjective Mr. Bill was seen & examined in his hospital room this morning. He was oriented to self only. He denied fever, angina or dyspnea. Review of Systems Constitutional: + weakness; no fever Eyes: no worsening vision and no problem reported Ear, Nose, Mouth, Throat: no problem reported Respiratory: no cough and no dyspnea Cardiovascular: no chest pain, no palpitations and no edema Gastrointestinal: no abdominal pain, no nausea, no vomiting and no diarrhea/loose stools Genitourinary: no dysuria, no urinary hesitancy and no hematuria Musculoskeletal: no back pain Integumentary: no rash Neurologic: + confusion Physical Exam Constitutional: + frail appearing; not in distress Eyes: PERRL, conjunctivae normal, anicteric sclerae ENMT: external ear and nose normal, oropharynx normal Neck: trachea midline, no thyromegaly Respiratory: normal respiratory effort, lungs clear to auscultation Cardiovascular: RRR, no murmur, no edema Extremities: + AV fistula (+ bruit) Gastrointestinal (Abdomen): normal bowel sounds, soft, nontender, no h epatosplenomegaly Musculoskeletal: Extremities: no cyanosis Skin: no rashes, warm and dry Neurologic: awake; not confused Results & Data ([facility]) Vital Signs (Past 12 Hours) Vital Signs Temp Pulse Pulse Resp BP Pulse Ox 11/12/19 07:44 79 20 152/69 H 100 11/12/19 07:32 77 11/12/19 07:15 67 18 96 11/12/19 02:38 36.6 C 71 19 154/63 H 98 11/12/19 01:50 60 Laboratory Results Laboratory Tests 11/12/19 06:51 Sodium 140 Potassium 3.7 Chloride 103 Carbon Dioxide 26 Creatinine 3.10 H D Calcium 9.6 PG Care Time/CCT Total # of Minutes Spent Total Time Spent with Patient: Total time spent is greater than 50% in coordination of care (as documented) at patient's floor/unit and/or counseling patient: Coding Level of Care Code 30607 Subseq Hosp Care Lvl 3 Diagnoses ESRD (end stage renal disease) on dialysis N18.6; Z99.2 Anemia secondary to renal failure D63.1 HTN (hypertension) I10 Hypertension type: unspecified Lung transplant recipient Z94.2 (1) HTN (hypertension) Hypertension type: unspecified Qualified Code(s): I10 - Essential (primary) hypertension
[2019-11-12] MEDS: MAGNESIUM OXIDE 400 MG TAB PO SCH (14:58)
[2019-11-12] MEDS: POSACONAZOLE 100 MG PO SCH (14:58)
[2019-11-12] MEDS: MENTHOL-ZINC OXIDE 360 APPLN/120 GM TUBE EXT PRN (15:43)
--- NOTE | 2019-11-12 17:42 | Hospitalist Progress Note ---
Date of Service November 12, 2019 Assessment & Plan (1) Acute hypoxemic respiratory failure: Acute respiratory failure with hypoxia Ventilator dependent respiratory failure: Extubated 11/05/19 Secondary to pulmonary edema Other possibilities include pneumonia Volume overload in setting of Acute Systolic CHF, ESRD, IPF GPR Bacteremia Likely contaminant Repeat Blood Cx:Negative --CXR:Increasing left lung infiltrates concerning for worsening pneumonia in the transplanted left lung. Chronic right mid to basilar infiltrates compatible with chronic interstitial lung disease. Involvement of pneumonia may also be present. 3. Suspected right pleural effusion. Cardiomegaly. Some degree of volume overload or congestive change is difficult to exclude. --COVID-19 screen and influenza screen are negative Had bronchoscopy on 11/01/19 Blood culture from 10/31/19 growing GPR.Likely contaminant. Repeat blood cultures negative so far. BAL cultures negative Completed zosyn therapy Appreciate Critical care Input Volume status managed through dialysis, diuretics Continue PO Bumex 2mg daily Appreciate Parimutuel Clerk Input Needs Outpatient HD set up prior to discharge Saturating well on room air Next HD on Wednesday Afib Bradycardia ? SSS Prolonged QTC Metoprolol held due to bradycardia Will request Cardiology to re-eval No pauses on Tele Altered Mental Status Likely Delirium CT head: No acute intracranial abnormality. 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 Reorient frequently Prozac held Supratherapeutic INR: H/O DVT INR now therapeutic Coumadin held today Monitor INR : 3.6 ESRD H/O OLIVIER, Tobramycin, HTN, DM H/O diabetic retinopathy Appreciate Nephrology Input HD as per Nephrology Avoid nephrotoxic agents as able Monitor electrolytes and renal function Elevated Troponin In setting of end-stage renal disease, CHF Likely demand ischemia EKG showed no signs of acute ischemia Food Safety Auditor evaluation completed H/O CAD S/P Stent Metoprolol held due to bradycardia Continue Statin, plavix Also on anticoagulation with coumadin 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 Mari Teixeira on 11/01/19 Contact NO:[phone] Current medications have been adjusted appropriately for renal function Transplant physician cotton presser:l [phone] Washington on [facility] lung transplant team on 11/02/2019 who recommend to continue with home dose of antibiotic/antirejection meds, to continue current dose of acyclovir and to get tacro trough level on 11/06/19. Tacro level sent Plan to update Transplant physician prior to discharge DM II Hb A1C: 5.24 September 2019 Continue Insulin therapy Monitor BGs DVT Px: Coumadin Code Status Full code Disposition Needs Rehab placement Admission and Anticipated Discharge Date Admission Date: October 30, 2019 Subjective Patient is seen and examined at bedside More pleasant, Co-operative today Oriented to person only Denies any chest pain, SOB, dizziness, nausea, abdominal pain No significant cough Next HD on Wed Review of Systems Review of Systems: All systems reviewed & are unremarkable except as noted in HPI & below Physical Exam Physical Exam: Physical Exam: Vitals signs as noted above General Appearance:Thin, no distress Head: normocephalic, Atraumatic Eyes: normal inspection, EOMI Neck: supple, Trachea midline Respiratory/Chest: Decreased breath sounds, CTA Cardiovascular: Irregularly irregular,Systolic murmur Abdomen/GI:Soft, Non tender, Bowel sounds present Extremities/Musculoskelatal:normal inspection, no edema Neurologic/Psych:grossly no focal neurological deficits Skin: normal color, warm Results & Data Results & Data ([facility]) Vital Signs (Past 12 Hours) Vital Signs Temp Pulse Pulse Resp BP Pulse Ox 11/12/19 15:36 76 11/12/19 15:31 36.8 C 62 20 126/69 91 11/12/19 07:44 79 20 152/69 H 100 11/12/19 07:32 77 11/12/19 07:15 67 18 96
[2019-11-12] MEDS: INSULIN GLARGINE SOLOSTAR 100 UNITS/ML 3 ML PEN SC SCH (20:45)
[2019-11-12] MEDS: ROSUVASTATIN CALCIUM 20 MG TAB PO SCH (20:54)
--- NOTE | 2019-11-13 06:38 | CT Scan Report ---
CT foot LT wo con CLINICAL HISTORY: 78 years-old Male presenting with L foot swelling/pain, concern for hematoma. TECHNIQUE: Multidetector CT of the left foot was performed without the use of intravenous contrast. I V contrast: None. One or more dose lowering techniques were used consistent with the principles of AL KEVIN (as low as reasonably achievable), including automatic exposure control, mA or kV adjustment to i ndividual patient size, and/or use of iterative reconstruction. COMPARISON: None. CT DOSE (mGy.cm): The estimated cumulative dose is 200.82 mGy.cm. 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 Diffuse fatty atrophy of musculature. Mild diffuse subcutaneous edema. This may be greatest at the le mildred of the first MTP joint. No focal collection in the soft tissues is evident. Severe atherosclerosi s. Ankle mortise congruent. Degenerative changes at the navicular-medial cuneiform and navicular-lateral cuneiform articulations. No acute fracture or acute appearing malalignment. No evidence of osseous e rosion. Sclerosis of the sesamoid bones at the level of the first MTP joint. Mild sclerosis of the monroe bchondral region of the head of the first metatarsal may relate to degenerative change. Underlying os teopenia. The distal metaphysis of the left tibia has a permeative appearance to the medullary bone. An underlying nondisplaced or incomplete fracture plane is also difficult to exclude (series 3 image 39). This is slightly asymmetric to the right. IMPRESSION: 1. Asymmetric appearance of the left distal tibial metaphysis. While this may be on an osteopenic ba sis, please correlate with point tenderness to exclude acute osseous injury. 2. No convincing evidence of a soft tissue hematoma in the left foot. 3. Sclerosis of the sesamoid bones at the first MTP joint may suggest age indeterminate osteonecrosi s or degenerative change. 4. Allowing for osteopenia, no acute osseous injury in the foot. 5. Degenerative changes in the midfoot. ACT 112: Negative or not required by law. Electronically signed by: Momo Lenz M.D. 11/13/2019 6:37 AM
[2019-11-13] MEDS: ALBUT/IPRATROP 3MG/0.5MG NEB 3 ML VIAL NEB SCH ×2 (07:15→19:09)
[2019-11-13] MEDS: TOBRAMYCIN SULFATE INH SCH ×2 (07:15→19:31)
[2019-11-13 08:10] LABS: Hemoglobin 9.9 g/dL (14.0-18.0); Mean Corpuscular Hemoglobin 34.3 pg (25-34); Mean Corpuscular Hgb Conc 31.9 g/dL (32-36); Mean Corpuscular Volume 107.3 fL (80-100); Mean Platelet Volume 11.5 fL (7.4-10.4); Platelet Count 302 K/uL (130-400); RDW Coefficient of Variation 16.1 % (11.5-14.5); RDW Standard Deviation 63.5 fL (36.4-46.3); Red Blood Count 2.89 M/uL (4.7-6.1); White Blood Count 6.49 K/uL (4.8-10.8)
[2019-11-13 08:22] LABS: INR 4.4 (0.9-1.1); Prothrombin Time 43.1 Seconds (9.0-12.0)
[2019-11-13 08:31] LABS: BUN Creatinine Ratio 5.8 (10-20); Calcium 9.5 mg/dl (8.5-10.1); Creatinine Clr Calc Pharmacy 14.3 ml/min; Est GFR (African American) 14.5; Est GFR (Non-African American) 12.5; Potassium 3.6 mmol/L (3.5-5.1)
[2019-11-13] MEDS: FLUTICASONE/VILANTEROL 100/25MCG 14 PUFFS/INHALER INH SCH (08:47)
[2019-11-13] MEDS: POTASSIUM CHLORIDE 20 MEQ TABCR PO SCH (08:48)
[2019-11-13] MEDS: BUMETANIDE 1 MG TAB PO SCH (08:48)
[2019-11-13] MEDS: AMLODIPINE BESYLATE 5 MG TAB PO SCH (08:48)
[2019-11-13] MEDS: MYCOPHENOLATE SODIUM 180 MG TAB PO SCH ×2 (08:48→21:39)
[2019-11-13] MEDS: TACROLIMUS 0.5 MG CAP PO SCH ×2 (08:49→21:38)
[2019-11-13] MEDS: predniSONE 5 MG TAB PO SCH (08:49)
[2019-11-13] MEDS: CLOPIDOGREL BISULFATE 75 MG TAB PO SCH (08:49)
[2019-11-13] MEDS: SULFA/TRIMETH 400/80MG TAB PO SCH (08:49)
[2019-11-13] MEDS: PANTOprazole 40 MG TAB PO SCH ×2 (08:49→21:38)
[2019-11-13] MEDS: ACYCLOVIR 200 MG CAP PO SCH ×2 (08:50→21:37)
[2019-11-13] MEDS: MONTELUKAST SODIUM 10 MG TABLET PO SCH (08:50)
[2019-11-13] MEDS: DOXYCYCLINE HYCLATE 100 MG CAP PO SCH ×2 (08:50→21:37)
[2019-11-13] MEDS: INSULIN ASPART 100 UNITS/ML 3 ML PEN SC SCH ×4 (09:00→21:33)
--- NOTE | 2019-11-13 09:14 | XRay Report ---
XR chest 1V portable CLINICAL HISTORY: 78 years-old Male presenting with CHF. TECHNIQUE: Portable upright AP view of the chest was obtained. COMPARISON: 11/05/2019. FINDINGS: Interval extubation. Lung volume on the left is slightly diminished. Removal of the nasogastric tube. Numerous external leads project over the lower chest and upper abdomen. Atherosclerosis of the aorti c arch. Cardiac silhouette enlarged. Stable appearance of the abnormal contour of the right inferior mediastinum. Persistent dense reticular opacities and overlying pleural thickening or pleural effusio n at the right lung base. Persistent radiolucency in the right mid to upper lung. Left lung and pleur al space grossly clear. Degenerative changes of the thoracic spine. Upper abdomen normal. IMPRESSION: 1. Interval extubation. 2. Slightly decreased lung aeration without new focal infiltrate. 3. Unchanged dense right basilar fibrosis and a right apical bleb. 4. Cardiomegaly without volume overload or congestive change. ACT 112: Negative or not required by law. Electronically signed by: Momo Lenz M.D. 11/13/2019 9:12 AM
--- NOTE | 2019-11-13 10:32 | Nephrology Progress Note ---
Date of Service November 13, 2019 Assessment & Plan (1) ESRD (end stage renal disease) on dialysis: -- Will schedule next HD for am. EDW set at 70 Kg. Orders placed in EMR and HD RN notified -- Will stop Bumex since patient has been oliguric -- Discharge planning to set up outpatient HD TTS at [facility] -- Fistulogram completed 11/06/[address] Oconnell. Multiple stenotic areas were angioplastied (2) Anemia secondary to renal failure: -- Will provide FELICIANO w/ HD tomorrow -- Venofer 1 g infusion completed 11/05/19. -- Will recheck iron levels (3) HTN (hypertension): -- BP well controlled. 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 Bill was seen & examined in his hospital room this morning. He was oriented to self only. He denied fever, angina or dyspnea. Review of Systems Constitutional: + weakness; no fever Eyes: no worsening vision and no problem reported Ear, Nose, Mouth, Throat: no problem reported Respiratory: no cough and no dyspnea Cardiovascular: no chest pain, no palpitations and no edema Gastrointestinal: no abdominal pain, no nausea, no vomiting and no diarrhea/loose stools Genitourinary: no dysuria, no urinary hesitancy and no hematuria Musculoskeletal: no back pain Integumentary: no rash Neurologic: + confusion Physical Exam Constitutional: + frail appearing; not in distress Eyes: PERRL, conjunctivae normal, anicteric sclerae ENMT: external ear and nose normal, oropharynx normal Neck: trachea midline, no thyromegaly Respiratory: normal respiratory effort, lungs clear to auscultation Cardiovascular: RRR, no murmur, no edema Extremities: + AV fistula (+ bruit) Gastrointestinal (Abdomen): normal bowel sounds, soft, nontender, no hepatosplenomegaly Musculoskeletal: Extremities: no cyanosis Skin: no rashes, warm and dry Neurologic: awake; not confused Results & Data ([facility]) Vital Signs (Past 12 Hours) Vital Signs Temp Pulse Pulse Resp BP Pulse Ox 11/13/19 07:46 36.4 C L 73 20 129/77 98 11/13/19 07:25 69 11/13/19 07:16 62 16 98 11/13/19 03:00 36.9 C 75 18 150/68 H 99 11/12/19 22:41 36.5 C 85 18 128/71 99 Laboratory Results Laboratory Tests 11/13/19 11/13/19 11/13/19 07:03 07:03 07:03 WBC 6.49 Hgb 9.9 L Hct 31.0 L Plt Count 302 INR 4.4 H Sodium 136 Potassium 3.6 Chloride 101 Carbon Dioxide 24 BUN 25 H Creatinine 4.27 H D POC Glucose 11/13/19 07:53 WBC Hgb Hct Plt Count INR Sodium Potassium Chloride Carbon Dioxide BUN Creatinine POC Glucose 101 H PG Care Time/CCT Total # of Minutes Spent Total Time Spent with Patient: Total time spent is greater than 50% in coordination of care (as documented) at patient's floor/unit and/or counseling patient: Coding Level of Care Code 48025 Subseq Hosp Care Lvl 3 Diagnoses ESRD (end stage renal disease) on dialysis N18.6; Z99.2 Anemia secondary to renal failure D63.1 HTN (hypertension) I10 Hypertension type: unspecified Lung transplant recipient Z94.2 (1) HTN (hypertension) Hypertension type: unspecified Qualified Code(s): I10 - Essential (primary) hypertension
--- NOTE | 2019-11-13 11:33 | Psychiatric Consultation ---
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 His also notes some cognitive decline prior to this stay, likely a factor of overall health status, head CT 11/10 negative, which could explain differing presentation from previous delirium. 1. agitation with direct care/repositioning is often pain related, assuming that is ruled out, continue typical behavioral measures for delirium. Benzos are to be avoided in delirium and could have negative impact on his respiratory status. If ongoing/worsening, Haldol 1 mg q4 hr (or given set time prior to bathing for example) likely helpful and unlikely to have much impact to QTc. Patient is on cardiac monitoring so IV would be less intrussive than IM in unable to take by mouth. 2. Consider restart Prozac at lower dose (10 mg) and monitor qtc as retitrate as this could also be contributing to irritability. If SSRIs are prohibitive due to QTc issue our service preference is usually Remeron but can be sedating. would make most sense to continue with Prozac rather than switch to say Lexapro as he has tolerated well/found helpful for a decade. Risk Factors Assessment Do You Have Access To A Gun?: No Psych History Identifying Data 78 yo male, readmit to [facility] on 10/29 for multiple medical issues (chronic systolic heart failure secondary, A. fib on Coumadin, respiratory failure secondary to pulmonary fibrosis status post lung transplantation on immunosuppressive/antimicrobial suppression regimen). Consult is for management of agitation. Chief Complaint patient unable to verbalize, likely delirium History of Present Illness has been prescribed Prozac for 10 years for depression secondary to his chronic medical issues. Prozac was essentially held on readmission along with other medications given prolonged QTc, most recent EKG 492. It should also be noted that he is receiving dialysis. Per the patient's to liaison: At home, he is A&Ox4, independent with ADL's, but has been showing signs of "forgetfulness" the past several months, which is new for him. She states that in the past, prior to his lung transplant, he would get hospitalized and hypoxic, and would get delirious. She states that this time seems different because his behaviors seems to be more "aggressive in nature". According to the primary RN this shift aggressive behaviors are only when moved/repositioned. He may then try to kick/yell to be left alone. Otherwise he is cooperative with care. There are no reports of hallucinations, etc. Past Psychiatric History Previous Psych History: none, rx is by Special Event Assistant Previous Psych Admissions: none Do You Have Access To A Gun?: No History of Previous Suicide Attempt: No Past Medication Trials: Prozac only Allergies Allergy/AdvReac Type Severity Reaction Status Date / Time levofloxacin Allergy Intermediate ANAPHYLAXIS Verified 10/30/19 23:01 oxycodone Allergy Intermediate ANAPHYLAXIS Verified 10/30/19 23:01 cat dander Allergy Unknown CHEST Verified 10/30/19 23:02 TIGHTNESS Home Medications Home Medications Medication Instructions Recorded Confirmed Type albuterol sulfate 2.5 mg CONTINUOUS NEBULIZATION BID 03/02/19 10/30/19 History ml clopidogrel 75 mg tablet 75 mg PO DAILY #30 tab 03/02/19 10/30/19 History doxazosin 4 mg tablet 8 mg PO HS tab 03/02/19 10/30/19 History fluoxetine 20 mg capsule 40 mg PO DAILY cap 03/02/19 10/30/19 History fluticasone 500 mcg-salmeterol 50 1 puffs INH Q12H 03/02/19 10/30/19 History mcg/dose blistr powdr for inhalation insulin lispro 100 unit/mL 0 - 140 sliding scale dose SUBCUT 03/02/19 10/30/19 History subcutaneous solution TID PRN ml magnesium chloride 71.5 mg 143 mg PO DAILY tab 03/02/19 10/30/19 History (magnesium chloride) tablet,delayed release montelukast 10 mg tablet 10 mg PO DAILY tab 03/02/19 10/30/19 History mycophenolate sodium 180 mg 180 mg PO BID tab 03/02/19 10/30/19 History tablet,delayed release pantoprazole 40 mg tablet,delayed 40 mg PO BID tab 03/02/19 10/30/19 History release rosuvastatin 40 mg tablet 40 mg PO HS #90 tab 03/02/19 10/30/19 History tacrolimus 0.5 mg capsule 0.5 mg PO BID cap 03/02/19 10/30/19 History acetaminophen [Tylenol Extra 500 mg PO Q6H PRN 04/21/19 10/30/19 History Strength] azithromycin [Zithromax] 250 mg PO 3XWK 04/21/19 10/30/19 History metoprolol succinate [Toprol XL] 100 mg PO DAILY 04/21/19 10/30/19 History omega-3 acid ethyl esters [Lovaza] 2 cap PO BID 04/21/19 10/30/19 History posaconazole [Noxafil] 300 mg PO DAILY 04/21/19 10/30/19 History prednisone 5 mg PO DAILY 04/21/19 10/30/19 History tobramycin 150 mg INHALATION Q12H 04/21/19 10/30/19 History cyclobenzaprine 5 mg tablet 5 mg PO TID PRN 07/04/19 10/30/19 History acyclovir 400 mg PO BID 09/27/19 10/30/19 History sulfamethoxazole-trimethoprim 1 tab PO 2XWK 09/27/19 10/30/19 History [Bactrim] amlodipine [Norvasc] 10 mg PO QAM 30 Days #60 tab 10/06/19 10/30/19 Rx darbepoetin nicholas in polysorbat 100 100 mcg SUBCUT WEEKLY #4 ml 10/23/19 10/30/19 Rx mcg/mL in polysorbate injection sodium bicarbonate 650 mg tablet 1,300 mg PO BID #60 tab 10/23/19 10/30/19 Rx calcitriol 0.25 mcg PO 3XWK 10/30/19 10/30/19 History furosemide [Lasix] 80 mg PO DAILY 10/30/19 10/30/19 History hydralazine 10 mg PO Q8H 10/30/19 10/30/19 History warfarin 2.5 mg PO QPM 10/30/19 10/30/19 History Family History denied Substance Abuse History no substance abuse, in younger years drank hard liquor Personal History Employment Status: Retired () Marital Status: Beliefs That Will Affect Care: None Patient History Medical History Arthritis (Chronic) Chronic a-fib (Chronic) Chronic anemia (Chronic) Chronic diarrhea PT HAS BEEN SEEN AND EVALUATED BY GI FOR C-DIFF (NEGATIVE). 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 Mother , age 88 of CHF No problems noted. Daughter Age: 46 No problems noted. Son Age: 45 No problems noted. Other No significant family history Social History Preferred Language: Armenian Communication Ability: Effective Photographic Equipment Inspector Required: No Beliefs That Will Affect Care: None marital status: Current Living Situation: Spouse current occupational status: retired Other Information That Helps Us Care for You: No Feels Safe at Home: Yes Safety Concerns: Feels Safe At This Time Smoking Status: Former smoker Tobacco Type: cigarettes ; Cigarettes Per Day: HX OF BRIEF SOCIAL USE WHILE IN , QUIT 45 YEARS AGO ; Do You Dip or Chew Tobacco: No ; Smoking End Date: 35 years ago ; Second Hand Exposure: No ; Tobacco Cessation Education Requested by Patient: No Hx Alcohol Use: Yes Alcohol type: hard liquor Hx Substance Use: No caffeine: Yes (1 cup in am) Physical Exam Mental Examination: very limited due to sleeping heavily, oriented only to self. Will reattempt. Vital Signs (Past 24 Hours): Last Vital Signs Temp 36.4 C L 11/13/19 07:46 Pulse 73 11/13/19 07:46 Resp 20 11/13/19 07:46 BP 129/77 11/13/19 07:46 Pulse Ox 98 11/13/19 07:46 Review of Systems Unobtainable due to cognitive status Results & Data (PSY) Medications Administered Acetaminophen (Tylenol) 650 mg PO Q4H PRN PRN Reason: Pain or Fever Stop: 11/30/19 00:18 Last Admin: 11/12/19 08:28 Dose: 650 mg Documented by: [id number] Admin: 11/11/19 16:46 Dose: 650 mg Documented by: [id number] Acyclovir (Zovirax) 400 mg PO BID [facility] Stop: 12/10/19 20:59 Last Admin: 11/13/19 08:50 Dose: 400 mg Documented by: [id number] Admin: 11/12/19 20:48 Dose: 400 mg Documented by: [id number] Admin: 11/12/19 08:30 Dose: 400 mg Documented by: [id number] Admin: 11/11/19 21:54 Dose: Not Given Documented by: [id number] Admin: 11/11/19 09:55 Dose: Not Given Documented by: [id number] Admin: 11/10/19 21:04 Dose: 400 mg Documented by: [id number] Albuterol (Duoneb) 3 ml NEB BIDR [facility] Stop: 12/06/19 18:59 Last Admin: 11/13/19 07:15 Dose: 3 ml Documented by: [id number] Admin: 11/12/19 19:11 Dose: 3 ml Documented by: [id number] Admin: 11/12/19 07:14 Dose: 3 ml Documented by: [id number] Admin: 11/11/19 19:53 Dose: Not Given Documented by: [id number] Admin: 11/11/19 07:14 Dose: 3 ml Documented by: [id number] Admin: 11/10/19 19:17 Dose: 3 ml Documented by: [id number] Admin: 11/10/19 07:03 Dose: 3 ml Documented by: [id number] Admin: 11/09/19 20:01 Dose: 3 ml Documented by: [id number] Admin: 11/09/19 07:12 Dose: 3 ml Documented by: [id number] Admin: 11/08/19 19:08 Dose: 3 ml Documented by: [id number] Admin: 11/08/19 08:07 Dose: 3 ml Documented by: [id number] Admin: 11/07/19 19:31 Dose: 3 ml Documented by: [id number] Admin: 11/07/19 07:19 Dose: 3 ml Documented by: [id number] Admin: 11/06/19 19:31 Dose: 3 ml Documented by: [id number] Amlodipine Besylate (Norvasc) 5 mg PO QAM [facility] Stop: 12/01/19 08:59 Last Admin: 11/13/19 08:48 Dose: 5 mg Documented by: [id number] Admin: 11/12/19 08:30 Dose: 5 mg Documented by: [id number] Admin: 11/11/19 09:16 Dose: Not Given Documented by: [id number] Admin: 11/10/19 07:50 Dose: 5 mg Documented by: [id number] Admin: 11/09/19 07:53 Dose: Not Given Documented by: [id number] Admin: 11/08/19 08:09 Dose: 5 mg Documented by: [id number] Admin: 11/07/19 08:04 Dose: 5 mg Documented by: [id number] Admin: 11/06/19 07:50 Dose: 5 mg Documented by: [id number] Admin: 11/05/19 07:45 Dose: 5 mg Documented by: [id number] Admin: 11/04/19 07:37 Dose: 5 mg Documented by: [id number] Admin: 11/03/19 10:04 Dose: 5 mg Documented by: [id number] Admin: 11/02/19 10:19 Dose: 5 mg Documented by: [id number] Admin: 11/01/19 22:31 Dose: Not Given Documented by: [id number] Calamine/Phenol (Calmoseptine) 1 appln EXT UD PRN PRN Reason: reddness to bottom/scrotum Stop: 12/08/19 21:29 Last Admin: 11/12/19 15:43 Dose: 1 appln Documented by: [id number] Admin: 11/08/19 23:26 Dose: 1 appln Documented by: [id number] Clopidogrel Bisulfate (Plavix) 75 mg PO DAILY [facility] Stop: 12/01/19 08:59 Last Admin: 11/13/19 08:49 Dose: 75 mg Documented by: [id number] Admin: 11/12/19 08:30 Dose: 75 mg Documented by: [id number] Admin: 11/11/19 09:55 Dose: Not Given Documented by: [id number] Admin: 11/10/19 07:50 Dose: 75 mg Documented by: [id number] Admin: 11/09/19 07:52 Dose: 75 mg Documented by: [id number] Admin: 11/08/19 08:09 Dose: 75 mg Documented by: [id number] Admin: 11/07/19 08:05 Dose: 75 mg Documented by: [id number] Admin: 11/06/19 07:53 Dose: 75 mg Documented by: [id number] Admin: 11/05/19 07:37 Dose: 75 mg Documented by: [id number] Admin: 11/04/19 07:38 Dose: 75 mg Documented by: [id number] Admin: 11/03/19 10:03 Dose: 75 mg Documented by: [id number] Admin: 11/02/19 10:20 Dose: 75 mg Documented by: [id number] Admin: 11/01/19 08:55 Dose: 75 mg Documented by: [id number] Doxazosin Mesylate (Cardura) 8 mg PO HS [facility] Stop: 11/30/19 20:59 Last Admin: 10/31/19 20:27 Dose: 8 mg Documented by: [id number] Doxycycline Hyclate (Vibramycin) 100 mg PO BID [facility] Stop: 12/07/19 20:59 Last Admin: 11/13/19 08:50 Dose: 100 mg Documented by: [id number] Admin: 11/12/19 20:48 Dose: 100 mg Documented by: [id number] Admin: 11/12/19 08:29 Dose: 100 mg Documented by: [id number] Admin: 11/11/19 21:54 Dose: Not Given Documented by: [id number] Admin: 11/11/19 09:55 Dose: Not Given Documented by: [id number] Admin: 11/10/19 21:04 Dose: 100 mg Documented by: [id number] Admin: 11/10/19 07:50 Dose: 100 mg Documented by: [id number] Admin: 11/09/19 20:25 Dose: 100 mg Documented by: [id number] Admin: 11/09/19 07:52 Dose: 100 mg Documented by: [id number] Admin: 11/08/19 20:35 Dose: 100 mg Documented by: [id number] Admin: 11/08/19 08:10 Dose: 100 mg Documented by: [id number] Admin: 11/07/19 20:22 Dose: 100 mg Documented by: [id number] Fluoxetine HCl (Prozac) 40 mg PO DAILY [facility] Stop: 11/30/19 08:59 Last Admin: 11/11/19 09:55 Dose: Not Given Documented by: [id number] Admin: 11/10/19 07:49 Dose: 40 mg Documented by: [id number] Admin: 11/01/19 10:11 Dose: Not Given Documented by: [id number] Admin: 10/31/19 08:13 Dose: 40 mg Documented by: [id number] Fluticasone/Vilanterol (Breo Ellipta 100/25 Mcg Inh) 1 puffs INH DAILY [facility] Stop: 11/30/19 08:59 Last Admin: 11/13/19 08:47 Dose: 1 puffs Documented by: [id number] Admin: 11/12/19 08:31 Dose: 1 puffs Documented by: [id number] Admin: 11/11/19 09:16 Dose: Not Given Documented by: [id number] Admin: 11/10/19 07:51 Dose: 1 puffs Documented by: [id number] Admin: 11/09/19 07:51 Dose: 1 puffs Documented by: [id number] Admin: 11/08/19 08:08 Dose: 1 puffs Documented by: [id number] Admin: 11/07/19 08:04 Dose: 1 puffs Documented by: [id number] Admin: 11/06/19 07:49 Dose: 1 puffs Documented by: [id number] Admin: 11/05/19 07:36 Dose: Not Given Documented by: [id number] Admin: 11/04/19 07:37 Dose: Not Given Documented by: [id number] Admin: 11/03/19 09:44 Dose: Not Given Documented by: [id number] Admin: 11/02/19 09:07 Dose: Not Given Documented by: [id number] Admin: 11/01/19 07:40 Dose: Not Given Documented by: [id number] Admin: 10/31/19 08:10 Dose: 1 puffs Documented by: [id number] Hydralazine HCl (Apresoline) 10 mg PO Q8 [facility] Stop: 11/30/19 00:18 Last Admin: 11/01/19 06:04 Dose: Not Given Documented by: [id number] Admin: 10/31/19 20:26 Dose: 10 mg Documented by: [id number] Admin: 10/31/19 14:30 Dose: 10 mg Documented by: [id number] Admin: 10/31/19 06:03 Dose: 10 mg Documented by: [id number] Admin: 10/31/19 02:07 Dose: 10 mg Documented by: [id number] Promethazine HCl 12.5 mg/ (Sodium Chloride) 50.5 mls @ 202 mls/hr IV Q6H PRN PRN Reason: Nausea And Vomiting Stop: 11/30/19 00:18 Last Infusion: 10/31/19 12:35 Dose: 0 mls/hr Documented by: [id number] Admin: 10/31/19 12:16 Dose: 202 mls/hr Documented by: [id number] Tobramycin Sulfate 150 mg/ (Syringe) 3.75 mls @ 0.033 mls/min INH Q12R [facility] Stop: 11/30/19 06:59 Last Admin: 11/13/19 07:15 Dose: 0.033 mls/min Documented by: [id number] Admin: 11/12/19 19:11 Dose: 0.033 mls/min Documented by: [id number] Admin: 11/12/19 07:15 Dose: 0.033 mls/min Documented by: [id number] Admin: 11/11/19 19:53 Dose: Not Given Documented by: [id number] Admin: 11/11/19 07:14 Dose: 0.033 mls/min Documented by: [id number] Admin: 11/10/19 19:17 Dose: 0.033 mls/min Documented by: [id number] Admin: 11/10/19 07:03 Dose: 0.033 mls/min Documented by: [id number] Admin: 11/09/19 20:01 Dose: 0.033 mls/min Documented by: [id number] Admin: 11/09/19 07:12 Dose: 0.033 mls/min Documented by: [id number] Admin: 11/08/19 19:08 Dose: 0.033 mls/min Documented by: [id number] Admin: 11/08/19 08:07 Dose: 0.033 mls/min Documented by: [id number] Admin: 11/07/19 19:31 Dose: 0.033 mls/min Documented by: [id number] Admin: 11/07/19 07:19 Dose: 0.033 mls/min Documented by: [id number] Admin: 11/06/19 19:45 Dose: 0.033 mls/min Documented by: [id number] Admin: 11/06/19 07:04 Dose: 0.033 mls/min Documented by: [id number] Admin: 11/05/19 19:38 Dose: 0.033 mls/min Documented by: [id number] Admin: 11/05/19 06:58 Dose: 0.033 mls/min Documented by: [id number] Admin: 11/04/19 19:07 Dose: 0.033 mls/min Documented by: [id number] Admin: 11/04/19 07:05 Dose: 0.033 mls/min Documented by: [id number] Admin: 11/03/19 19:19 Dose: 0.033 mls/min Documented by: [id number] Admin: 11/03/19 07:07 Dose: 0.033 mls/min Documented by: [id number] Admin: 11/02/19 19:14 Dose: 0.033 mls/min Documented by: [id number] Admin: 11/02/19 07:04 Dose: 0.033 mls/min Documented by: [id number] Admin: 11/01/19 19:26 Dose: 0.033 mls/min Documented by: [id number] Admin: 11/01/19 07:05 Dose: 0.033 mls/min Documented by: [id number] Admin: 10/31/19 19:19 Dose: 0.033 mls/min Documented by: [id number] Admin: 10/31/19 06:34 Dose: 0.033 mls/min Documented by: [id number] Insulin Aspart (Novolog Flexpen) 0 units SC ACHS [facility] Stop: 12/08/19 07:29 Last Admin: 11/13/19 09:00 Dose: Not Given Documented by: [id number] Cosigned by: [id number] Admin: 11/12/19 20:03 Dose: Not Given Documented by: [id number] Cosigned by: [id number] Admin: 11/12/19 17:29 Dose: Not Given Documented by: [id number] Cosigned by: [id number] Admin: 11/12/19 12:38 Dose: Not Given Documented by: [id number] Cosigned by: [id number] Admin: 11/12/19 08:50 Dose: Not Given Documented by: [id number] Cosigned by: [id number] Admin: 11/11/19 21:52 Dose: Not Given Documented by: [id number] Cosigned by: [id number] Admin: 11/11/19 17:54 Dose: Not Given Documented by: [id number] Cosigned by: [id number] Admin: 11/11/19 12:54 Dose: Not Given Documented by: [id number] Cosigned by: [id number] Admin: 11/11/19 09:16 Dose: Not Given Documented by: [id number] Cosigned by: [id number] Admin: 11/10/19 21:03 Dose: Not Given Documented by: [id number] Cosigned by: [id number] Admin: 11/10/19 17:20 Dose: 3 units Documented by: [id number] Cosigned by: [id number] Admin: 11/10/19 12:33 Dose: 2 units Documented by: [id number] Cosigned by: [id number] Insulin Glargine (Lantus Solostar Pen) 5 units SC HS [facility] Stop: 12/06/19 20:59 Last Admin: 11/12/19 20:45 Dose: 5 units Documented by: [id number] Cosigned by: [id number] Admin: 11/11/19 21:55 Dose: 5 units Documented by: [id number] Cosigned by: [id number] Admin: 11/10/19 21:02 Dose: 5 units Documented by: [id number] Cosigned by: [id number] Admin: 11/09/19 20:20 Dose: 5 units Documented by: [id number] Cosigned by: [id number] Admin: 11/08/19 20:38 Dose: 5 units Documented by: [id number] Cosigned by: [id number] Admin: 11/07/19 20:23 Dose: 5 units Documented by: [id number] Cosigned by: [id number] Admin: 11/06/19 20:11 Dose: 5 units Documented by: [id number] Cosigned by: [id number] Magnesium Oxide (Mag-Ox) 400 mg PO DAILY@1600 [facility] Stop: 12/07/19 15:59 Last Admin: 11/12/19 14:58 Dose: 400 mg Documented by: [id number] Admin: 11/11/19 16:45 Dose: 400 mg Documented by: [id number] Admin: 11/10/19 15:50 Dose: 400 mg Documented by: [id number] Admin: 11/09/19 17:02 Dose: 400 mg Documented by: [id number] Admin: 11/08/19 16:31 Dose: 400 mg Documented by: [id number] Admin: 11/07/19 16:53 Dose: 400 mg Documented by: [id number] Metoprolol Succinate (Toprol Xl) 25 mg PO QAM [facility] Stop: 12/10/19 08:59 Last Admin: 11/11/19 09:17 Dose: Not Given Documented by: [id number] Admin: 11/10/19 07:49 Dose: 25 mg Documented by: [id number] Miscellaneous (Carbohydrates For Hypoglycemia) 15 - 30 gm PO UD PRN PRN Reason: Hypoglycemia Protocol Stop: 11/30/19 00:18 Last Admin: 11/10/19 08:04 Dose: 15 gm Documented by: [id number] Admin: 11/10/19 07:48 Dose: 15 gm Documented by: [id number] Montelukast Sodium (Singulair) 10 mg PO DAILY [facility] Stop: 11/30/19 08:59 Last Admin: 11/13/19 08:50 Dose: 10 mg Documented by: [id number] Admin: 11/12/19 08:31 Dose: 10 mg Documented by: [id number] Admin: 11/11/19 09:55 Dose: Not Given Documented by: [id number] Admin: 11/10/19 07:50 Dose: 10 mg Documented by: [id number] Admin: 11/09/19 08:41 Dose: 10 mg Documented by: [id number] Admin: 11/01/19 10:11 Dose: Not Given Documented by: [id number] Admin: 10/31/19 08:12 Dose: 10 mg Documented by: [id number] Mycophenolate Sodium (Myfortic) 180 mg PO BID [facility] Stop: 11/30/19 08:59 Last Admin: 11/13/19 08:48 Dose: 180 mg Documented by: [id number] Admin: 11/12/19 20:49 Dose: 180 mg Documented by: [id number] Admin: 11/12/19 08:31 Dose: 180 mg Documented by: [id number] Admin: 11/11/19 21:48 Dose: 180 mg Documented by: [id number] Admin: 11/11/19 09:55 Dose: Not Given Documented by: [id number] Admin: 11/10/19 21:03 Dose: 180 mg Documented by: [id number] Admin: 11/10/19 07:48 Dose: 180 mg Documented by: [id number] Admin: 11/09/19 20:22 Dose: 180 mg Documented by: [id number] Admin: 11/09/19 07:52 Dose: 180 mg Documented by: [id number] Admin: 11/08/19 20:41 Dose: 180 mg Documented by: [id number] Admin: 11/08/19 08:09 Dose: 180 mg Documented by: [id number] Admin: 11/07/19 21:03 Dose: 180 mg Documented by: [id number] Admin: 11/01/19 10:10 Dose: Not Given Documented by: [id number] Admin: 10/31/19 20:28 Dose: 180 mg Documented by: [id number] Admin: 10/31/19 08:09 Dose: 180 mg Documented by: [id number] Pantoprazole Sodium (Protonix) 40 mg PO BID [facility] Stop: 11/30/19 08:59 Last Admin: 11/13/19 08:49 Dose: 40 mg Documented by: [id number] Admin: 11/12/19 20:48 Dose: 40 mg Documented by: [id number] Admin: 11/12/19 08:30 Dose: 40 mg Documented by: [id number] Admin: 11/11/19 21:54 Dose: Not Given Documented by: [id number] Admin: 11/11/19 09:55 Dose: Not Given Documented by: [id number] Admin: 11/10/19 21:03 Dose: 40 mg Documented by: [id number] Admin: 11/10/19 07:50 Dose: 40 mg Documented by: [id number] Admin: 11/09/19 20:23 Dose: 40 mg Documented by: [id number] Admin: 11/09/19 07:52 Dose: 40 mg Documented by: [id number] Admin: 11/08/19 20:36 Dose: 40 mg Documented by: [id number] Admin: 11/08/19 08:10 Dose: 40 mg Documented by: [id number] Admin: 11/07/19 20:22 Dose: 40 mg Documented by: [id number] Admin: 11/01/19 07:42 Dose: Not Given Documented by: [id number] Admin: 10/31/19 20:27 Dose: 40 mg Documented by: [id number] Admin: 10/31/19 08:12 Dose: 40 mg Documented by: [id number] Posaconazole (Noxafil) 3 ea PO DAILY@1500 [facility] Stop: 12/01/19 14:59 Last Admin: 11/12/19 14:58 Dose: 3 ea Documented by: [id number] Admin: 11/11/19 16:45 Dose: 3 ea Documented by: [id number] Admin: 11/10/19 15:50 Dose: 3 ea Documented by: [id number] Admin: 11/09/19 16:57 Dose: 3 ea Documented by: [id number] Admin: 11/08/19 16:31 Dose: 3 ea Documented by: [id number] Admin: 11/07/19 16:53 Dose: 3 ea Documented by: [id number] Admin: 11/06/19 15:59 Dose: 3 ea Documented by: [id number] Potassium Chloride (Klor-Con M20) 20 meq PO QAM [facility] Stop: 12/10/19 08:59 Last Admin: 11/13/19 08:48 Dose: 20 meq Documented by: [id number] Admin: 11/12/19 08:30 Dose: 20 meq Documented by: [id number] Admin: 11/11/19 09:55 Dose: Not Given Documented by: [id number] Admin: 11/10/19 07:49 Dose: 20 meq Documented by: [id number] Prednisone (Prednisone) 5 mg PO DAILY [facility] Stop: 11/30/19 08:59 Last Admin: 11/13/19 08:49 Dose: 5 mg Documented by: [id number] Admin: 11/12/19 08:30 Dose: 5 mg Documented by: [id number] Admin: 11/11/19 09:55 Dose: Not Given Documented by: [id number] Admin: 11/10/19 07:49 Dose: 5 mg Documented by: [id number] Admin: 11/09/19 07:52 Dose: 5 mg Documented by: [id number] Admin: 11/08/19 08:09 Dose: 5 mg Documented by: [id number] Admin: 11/07/19 08:05 Dose: 5 mg Documented by: [id number] Admin: 11/06/19 07:53 Dose: 5 mg Documented by: [id number] Admin: 11/05/19 07:37 Dose: 5 mg Documented by: [id number] Admin: 11/04/19 07:38 Dose: 5 mg Documented by: [id number] Admin: 11/03/19 10:04 Dose: 5 mg Documented by: [id number] Admin: 11/02/19 10:20 Dose: 5 mg Documented by: [id number] Admin: 11/01/19 08:55 Dose: 5 mg Documented by: [id number] Admin: 10/31/19 08:11 Dose: 5 mg Documented by: [id number] Rosuvastatin Calcium (Crestor) 40 mg PO HS [facility] Stop: 11/30/19 20:59 Last Admin: 11/12/19 20:54 Dose: 40 mg Documented by: [id number] Admin: 11/11/19 21:51 Dose: 40 mg Documented by: [id number] Admin: 11/10/19 21:01 Dose: 40 mg Documented by: [id number] Admin: 11/09/19 20:19 Dose: 40 mg Documented by: [id number] Admin: 11/08/19 20:41 Dose: 40 mg Documented by: [id number] Admin: 11/07/19 20:24 Dose: 40 mg Documented by: [id number] Admin: 11/06/19 20:10 Dose: 40 mg Documented by: [id number] Admin: 11/05/19 20:06 Dose: Not Given Documented by: [id number] Admin: 11/04/19 20:06 Dose: 40 mg Documented by: [id number] Admin: 11/03/19 20:17 Dose: 40 mg Documented by: [id number] Admin: 11/02/19 20:52 Dose: Not Given Documented by: [id number] Admin: 11/01/19 19:57 Dose: 40 mg Documented by: [id number] Admin: 10/31/19 20:27 Dose: 40 mg Documented by: [id number] Tacrolimus (Prograf) 0.5 mg PO BID [facility]; Protocol Stop: 11/30/19 08:59 Last Admin: 11/13/19 08:49 Dose: 0.5 mg Documented by: [id number] Admin: 11/12/19 20:54 Dose: 0.5 mg Documented by: [id number] Admin: 11/12/19 08:31 Dose: 0.5 mg Documented by: [id number] Admin: 11/11/19 21:50 Dose: 0.5 mg Documented by: [id number] Admin: 11/11/19 09:55 Dose: Not Given Documented by: [id number] Admin: 11/10/19 21:03 Dose: 0.5 mg Documented by: [id number] Admin: 11/10/19 07:49 Dose: 0.5 mg Documented by: [id number] Admin: 11/09/19 20:24 Dose: 0.5 mg Documented by: [id number] Admin: 11/09/19 07:52 Dose: 0.5 mg Documented by: [id number] Admin: 11/08/19 20:42 Dose: 0.5 mg Documented by: [id number] Admin: 11/08/19 08:10 Dose: 0.5 mg Documented by: [id number] Admin: 11/07/19 20:21 Dose: 0.5 mg Documented by: [id number] Admin: 11/07/19 09:41 Dose: 0.5 mg Documented by: [id number] Admin: 11/06/19 20:09 Dose: 0.5 mg Documented by: [id number] Admin: 11/06/19 15:59 Dose: 0.5 mg Documented by: [id number] Admin: 11/05/19 20:06 Dose: Not Given Documented by: [id number] Admin: 11/05/19 07:38 Dose: 0.5 mg Documented by: [id number] Admin: 11/04/19 22:12 Dose: 0.5 mg Documented by: [id number] Admin: 11/04/19 11:13 Dose: 0.5 mg Documented by: [id number] Admin: 11/03/19 20:17 Dose: 0.5 mg Documented by: [id number] Admin: 11/03/19 10:40 Dose: 0.5 mg Documented by: [id number] Admin: 11/03/19 10:07 Dose: Not Given Documented by: [id number] Admin: 11/02/19 20:52 Dose: Not Given Documented by: [id number] Admin: 11/01/19 09:57 Dose: Not Given Documented by: [id number] Admin: 10/31/19 20:28 Dose: 0.5 mg Documented by: [id number] Admin: 10/31/19 08:12 Dose: 0.5 mg Documented by: [id number] Trimethoprim/Sulfamethoxazole (Septra 400/80mg Tab) 1 tab PO MoTh@0900 MARLYS Stop: 11/30/19 00:18 Last Admin: 11/13/19 08:49 Dose: 1 tab Documented by: [id number] Admin: 11/09/19 07:54 Dose: 1 tab Documented by: [id number] Admin: 11/06/19 07:53 Dose: 1 tab Documented by: [id number] Admin: 11/02/19 08:59 Dose: 1 tab Documented by: [id number] Admin: 10/31/19 02:08 Dose: 1 tab Documented by: [id number] Warfarin Sodium (Coumadin) 2.5 mg PO DAILY@1600 MARLYS Stop: 12/11/19 15:59 Last Admin: 11/11/19 16:45 Dose: 2.5 mg Documented by: [id number] Coding Level of Care Code 22313 U Intl Hosp Care Lvl 2
[2019-11-13] MEDS: POSACONAZOLE 100 MG PO SCH (15:39)
[2019-11-13] MEDS: MAGNESIUM OXIDE 400 MG TAB PO SCH (15:39)
--- NOTE | 2019-11-13 17:38 | Hospitalist Progress Note ---
Date of Service November 13, 2019 Assessment & Plan (1) Acute hypoxemic respiratory failure: Acute respiratory failure with hypoxia Ventilator dependent respiratory failure: Extubated 11/05/19 Secondary to pulmonary edema Other possibilities include pneumonia Volume overload in setting of Acute Systolic CHF, ESRD, IPF GPR Bacteremia Likely contaminant Repeat Blood Cx:Negative --CXR:Increasing left lung infiltrates concerning for worsening pneumonia in the transplanted left lung. Chronic right mid to basilar infiltrates compatible with chronic interstitial lung disease. Involvement of pneumonia may also be present. 3. Suspected right pleural effusion. Cardiomegaly. Some degree of volume overload or congestive change is difficult to exclude. --COVID-19 screen and influenza screen are negative Had bronchoscopy on 11/01/19 Blood culture from 10/31/19 growing GPR.Likely contaminant. Repeat blood cultures negative so far. BAL cultures negative Completed zosyn therapy Appreciate Critical care Input Volume status managed through dialysis, diuretics Continue PO Bumex 2mg daily Appreciate Ethanol Quality Leader Input Needs Outpatient HD set up prior to discharge Saturating well on room air Next HD Tomorrow Afib Bradycardia ? SSS Prolonged QTC Discussed with Cardiology on 11/13/19 No pauses on Tele Okay to discontinue metoprolol for now May need follow-up with cardiology upon discharge Altered Mental Status Likely Delirium H/O Depression CT head: No acute intracranial abnormality. 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 Reorient frequently Prozac held due to QTC Prolongation Appreciate psychiatry input Consider starting on Remeron if necessary Avoid restarting Prozac due to conduction abnormality on EKG and Prolonged QTC Supratherapeutic INR: H/O DVT INR now therapeutic Coumadin held for 2 days Monitor INR : 4.4 ESRD H/O OLIVIER, Tobramycin, HTN, DM H/O diabetic retinopathy Appreciate Nephrology Input HD as per Nephrology Avoid nephrotoxic agents as able Monitor electrolytes and renal function Elevated Troponin In setting of end-stage renal disease, CHF Likely demand ischemia EKG showed no signs of acute ischemia Surgical Endoscopist evaluation completed H/O CAD S/P Stent Metoprolol held due to bradycardia Continue Statin, plavix Also on anticoagulation with coumadin 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 Mari Teixeira on 11/01/19 Contact NO:[phone] Current medications have been adjusted appropriately for renal function Transplant physician feather boner:l [phone] Washington on [facility] lung transplant team on 11/02/2019 who recommend to continue with home dose of antibiotic/antirejection meds, to continue current dose of acyclovir and to get tacro trough level on 11/06/19. Tacro level:normal Plan to update Transplant physician prior to discharge (Currently on Doxycyline (Replaced by Azithro) since has QTC Prolongation DM II Hb A1C: 5.24 September 2019 Continue Insulin therapy Monitor BGs DVT Px: Coumadin Code Status Full code Disposition Needs Rehab placement Admission and Anticipated Discharge Date Admission Date: October 30, 2019 Subjective Patient is seen and examined at bedside Sleeping comfortably this morning No issues as per RN INR supratherapeutic, no bleeding issues Coumadin on hold Appreciate psychiatry input No significant cough Review of Systems Review of Systems: All systems reviewed & are unremarkable except as noted in HPI & below Physical Exam Physical Exam: Physical Exam: Vitals signs as noted above General Appearance:Thin, no distress Head: normocephalic, Atraumatic Eyes: normal inspection, EOMI Neck: supple, Trachea midline Respiratory/Chest: Decreased breath sounds, CTA Cardiovascular: Irregularly irregular,Systolic murmur Abdomen/GI:Soft, Non tender, Bowel sounds present Extremities/Musculoskelatal:normal inspection, no edema Neurologic/Psych:grossly no focal neurological deficits Skin: normal color, warm Results & Data Results & Data ([facility]) Vital Signs (Past 12 Hours) Vital Signs Temp Pulse Pulse Resp BP Pulse Ox 11/13/19 15:04 68 11/13/19 11:51 36.2 C L 66 18 137/69 96 11/13/19 07:46 36.4 C L 73 20 129/77 98 11/13/19 07:25 69 11/13/19 07:16 62 16 98 Laboratory Results Short CBC 11/13/19 Range/Units 07:03 WBC 6.49 (4.8-10.8) K/uL Hgb 9.9 L (14.0-18.0) g/dL Hct 31.0 L (42-52) % Plt Count 302 (130-400) K/uL BMP 11/13/19 07:03 Sodium 136 Potassium 3.6 Chloride 101 Carbon Dioxide 24 BUN 25 H Creatinine 4.27 H D Glucose 93 Calcium 9.5
[2019-11-13] MEDS: INSULIN GLARGINE SOLOSTAR 100 UNITS/ML 3 ML PEN SC SCH ×2 (21:30→21:32)
[2019-11-13] MEDS: ROSUVASTATIN CALCIUM 20 MG TAB PO SCH (21:36)
[2019-11-14] MEDS: MYCOPHENOLATE SODIUM 180 MG TAB PO SCH ×3 (01:26→20:41)
[2019-11-14] MEDS: TACROLIMUS 0.5 MG CAP PO SCH ×3 (01:27→20:42)
[2019-11-14] MEDS: ROSUVASTATIN CALCIUM 20 MG TAB PO SCH ×2 (01:27→20:40)
[2019-11-14] MEDS: PANTOprazole 40 MG TAB PO SCH ×3 (01:39→20:42)
[2019-11-14] MEDS ORDERED: EPOETIN ALFA 10,000 UNITS/ML VIAL IV ONE (07:00)
[2019-11-14] MEDS ORDERED: SODIUM CHLORIDE 0.9% 1000ML 1,000 ML IV PRN (07:00)
[2019-11-14] MEDS ORDERED: HEPARIN SOD (PORCINE) 1000 UNIT/ML 10 ML VIAL IV ONE (07:00)
[2019-11-14] MEDS: ALBUT/IPRATROP 3MG/0.5MG NEB 3 ML VIAL NEB SCH ×2 (07:09→19:04)
[2019-11-14] MEDS: TOBRAMYCIN SULFATE INH SCH ×2 (07:09→19:10)
[2019-11-14 07:36] LABS: INR 4.1 (0.9-1.1)
[2019-11-14] MEDS: DOXYCYCLINE HYCLATE 100 MG CAP PO SCH (08:01)
[2019-11-14] MEDS: ACYCLOVIR 200 MG CAP PO SCH ×2 (08:01→20:42)
[2019-11-14] MEDS: POTASSIUM CHLORIDE 20 MEQ TABCR PO SCH (08:03)
[2019-11-14] MEDS: predniSONE 5 MG TAB PO SCH (08:03)
[2019-11-14] MEDS: MONTELUKAST SODIUM 10 MG TABLET PO SCH (08:03)
[2019-11-14] MEDS: CLOPIDOGREL BISULFATE 75 MG TAB PO SCH (08:03)
[2019-11-14] MEDS: FLUTICASONE/VILANTEROL 100/25MCG 14 PUFFS/INHALER INH SCH (08:03)
[2019-11-14] MEDS: INSULIN ASPART 100 UNITS/ML 3 ML PEN SC SCH ×4 (08:11→21:00)
[2019-11-14] MEDS: MENTHOL-ZINC OXIDE 360 APPLN/120 GM TUBE EXT PRN (08:46)
--- NOTE | 2019-11-14 10:15 | Nephrology Progress Note ---
Date of Service November 14, 2019 Assessment & Plan (1) ESRD (end stage renal disease) on dialysis: -- Will provide HD today. EDW set at 70 Kg. Orders placed in EMR and HD RN notified -- Bumex has been stopped since patient has been oliguric -- Discharge planning to set up outpatient HD TTS at [facility] -- Fistulogram completed 11/06/[address] Oconnell. Multiple stenotic areas were angioplastied (2) Anemia secondary to renal failure: -- Will provide FELICIANO w/ HD tomorrow -- Venofer 1 g infusion completed 11/05/19. -- Await follow up iron test results (3) HTN (hypertension): -- BP well controlled. No change to current medical regimen (4) Lung transplant recipient: -- s/p L lung transplant at [facility] due to IPF Admission and Anticipated Discharge Date Admission Date: October 30, 2019 Subjective Mr. Bill was seen & examined in his hospital room this morning. He was much more alert this morning and oriented x3. He denied fever, angina or dyspnea. Review of Systems Constitutional: + weakness; no fever Eyes: no problem reported Ear, Nose, Mouth, Throat: no problem reported Respiratory: no cough and no dyspnea Cardiovascular: no chest pain, no palpitations and no edema Gastrointestinal: no abdominal pain, no nausea, no vomiting and no diarrhea/loose stools Genitourinary: no dysuria, no urinary hesitancy and no hematuria Musculoskeletal: no back pain Integumentary: no rash Physical Exam Constitutional: + frail appearing; not in distress Eyes: PERRL, conjunctivae normal, anicteric sclerae ENMT: external ear and nose normal, oropharynx normal Neck: trachea midline, no thyromegaly Respiratory: normal respiratory effort, lungs clear to auscultation Cardiovascular: RRR, no murmur, no edema Extremities: + AV fistula (+ bruit) Gastrointestinal (Abdomen): normal bowel sounds, soft, nontender, no hepatosplenomegaly Musculoskeletal: Extremities: no cyanosis Skin: no rashes, warm and dry Neurologic: awake; not confused Results & Data ([facility]) Vital Signs (Past 12 Hours) Vital Signs Temp Pulse Pulse Resp BP Pulse Ox 11/14/19 07:39 36.3 C L 69 18 115/69 100 11/14/19 04:01 36.4 C L 53 L 18 118/62 99 11/13/19 23:41 36.4 C L 63 19 127/71 100 11/13/19 22:30 62 Laboratory Results Laboratory Results - last 24 hr 11/13/19 11/13/19 11/13/19 12:00 17:02 20:35 PT INR Sodium Potassium Chloride Carbon Dioxide Anion Gap BUN Creatinine Est Cr Clr Drug Dosing Est GFR ( Amer) Est GFR (Non-Af Amer) BUN/Creatinine Ratio Glucose POC Glucose 120 H 193 H 154 H Calcium Magnesium 11/14/19 11/14/19 11/14/19 06:49 06:49 07:47 PT 40.0 H INR 4.1 H Sodium Pending Potassium Pending Chloride Pending Carbon Dioxide Pending Anion Gap Pending BUN Pending Creatinine Pending Est Cr Clr Drug Dosing Pending Est GFR ( Amer) Pending Est GFR (Non-Af Amer) Pending BUN/Creatinine Ratio Pending Glucose Pending POC Glucose 104 H Calcium Pending Magnesium Pending PG Care Time/CCT Total # of Minutes Spent Total Time Spent with Patient: Total time spent is greater than 50% in coordination of care (as documented) at patient's floor/unit and/or counseling patient: Coding Level of Care Code 45854 Subseq Hosp Care Lvl 3 Diagnoses ESRD (end stage renal disease) on dialysis N18.6; Z99.2 Anemia secondary to renal failure D63.1 HTN (hypertension) I10 Hypertension type: unspecified Lung transplant recipient Z94.2 (1) HTN (hypertension) Hypertension type: unspecified Qualified Code(s): I10 - Essential (primary) hypertension
[2019-11-14 10:28] LABS: BUN Creatinine Ratio 6.6 (10-20); Calcium 9.5 mg/dl (8.5-10.1); Creatinine Clr Calc Pharmacy 12.1 ml/min; Est GFR (African American) 11.7; Est GFR (Non-African American) 10.1; Magnesium 1.9 mg/dl (1.8-2.4); Potassium 3.8 mmol/L (3.5-5.1)
[2019-11-14] MEDS: HEPARIN SOD (PORCINE) 1000 UNIT/ML 10 ML VIAL IV SCH (10:48)
[2019-11-14] MEDS: MAGNESIUM OXIDE 400 MG TAB PO SCH (17:06)
[2019-11-14] MEDS: AMLODIPINE BESYLATE 5 MG TAB PO SCH (17:06)
[2019-11-14] MEDS: POSACONAZOLE 100 MG PO SCH (17:06)
--- NOTE | 2019-11-14 17:57 | Hospitalist Progress Note ---
Date of Service November 14, 2019 Assessment & Plan (1) Acute hypoxemic respiratory failure: Acute respiratory failure with hypoxia Ventilator dependent respiratory failure: Extubated 11/05/19 Secondary to pulmonary edema Other possibilities include pneumonia Volume overload in setting of Acute Systolic CHF, ESRD, IPF --CXR:Increasing left lung infiltrates concerning for worsening pneumonia in the transplanted left lung. Chronic right mid to basilar infiltrates compatible with chronic interstitial lung disease. Involvement of pneumonia may also be present. 3. Suspected right pleural effusion. Cardiomegaly. Some degree of volume overload or congestive change is difficult to exclude. --COVID-19 screen and influenza screen are negative Had bronchoscopy on 11/01/19 Blood culture from 10/31/19 growing GPR.Likely contaminant. Repeat blood cultures negative. BAL cultures negative Completed zosyn therapy Appreciate Critical care Input Volume status managed through dialysis, diuretics Continue PO Bumex 2mg daily Appreciate Swimming Coach Input Needs Outpatient HD set up prior to discharge Saturating well on room air Had HD today Afib Bradycardia ? SSS Prolonged QTC Discussed with Cardiology on 11/13/19 No pauses on Tele Okay to discontinue metoprolol for now May need follow-up with cardiology upon discharge Altered Mental Status Likely Delirium H/O Depression CT head: No acute intracranial abnormality. 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 Reorient frequently Prozac held due to QTC Prolongation Appreciate psychiatry input Consider starting on Remeron if necessary Avoid restarting Prozac due to conduction abnormality on EKG and Prolonged QTC Mental status improved today Supratherapeutic INR: H/O DVT INR now therapeutic Coumadin held for 3 days Monitor INR : 4.1 ESRD H/O OLIVIER, Tobramycin, HTN, DM H/O diabetic retinopathy Appreciate Nephrology Input HD as per Nephrology Avoid nephrotoxic agents as able Monitor electrolytes and renal function Elevated Troponin In setting of end-stage renal disease, CHF Likely demand ischemia EKG showed no signs of acute ischemia Stereoptic Projection Topographer evaluation completed H/O CAD S/P Stent Metoprolol held due to bradycardia Continue Statin, plavix Also on anticoagulation with coumadin 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 Mari Teixeira on 11/01/19 Contact NO:[phone] Current medications have been adjusted appropriately for renal function Transplant physician germination worker:l [phone] Washington on [facility] lung transplant team on 11/02/2019 who recommend to continue with home dose of antibiotic/antirejection meds, to continue current dose of acyclovir and to get tacro trough level on 11/06/19. Tacro level:normal Plan to discontinue Azithromycin upon discharge due to QTC Prolongation: OK as per [facility] Transplant Physician Dr.Silpa Rodriguez: Discussed on 11/14/19 Dr.Silpa Rodriguez (Contact No:[phone]) Prefers to be updated on discharge planning to arrange for follow up visit with [facility]. DM II Hb A1C: 5.24 September 2019 Continue Insulin therapy Monitor BGs DVT Px: Coumadin Code Status Full code Disposition Waiting for Rehab placement Update [facility] Transplant physician prior to discharge. Admission and Anticipated Discharge Date Admission Date: October 30, 2019 Subjective Patient is seen and examined at bedside while having hemodialysis this morning Mental status better today Oriented to person, place No specific complaints Discussed with [facility] Transplant team today INR still supratherapeutic, no bleeding issues Denies chest pain, SOB, dizziness, nausea, abd pain Review of Systems Review of Systems: All systems reviewed & are unremarkable except as noted in HPI & below Physical Exam Physical Exam: Physical Exam: Vitals signs as noted above General Appearance:Thin, no distress Head: normocephalic, Atraumatic Eyes: normal inspection, EOMI Neck: supple, Trachea midline Respiratory/Chest: Decreased breath sounds, CTA Cardiovascular: Irregularly irregular,Systolic murmur Abdomen/GI:Soft, Non tender, Bowel sounds present Extremities/Musculoskelatal:normal inspection, no edema Neurologic/Psych:grossly no focal neurological deficits Skin: normal color, warm Results & Data Results & Data ([facility]) Vital Signs (Past 12 Hours) Vital Signs Temp Pulse Pulse Pulse Resp BP BP 11/14/19 15:56 36.5 C 66 18 118/68 11/14/19 14:25 36.6 C 51 L 115/62 11/14/19 14:05 70 126/67 11/14/19 14:00 58 L 119/69 11/14/19 13:40 73 118/69 11/14/19 13:20 67 95/62 L 11/14/19 13:00 71 117/56 L 11/14/19 12:40 59 L 114/64 11/14/19 12:20 62 109/56 L 11/14/19 12:00 57 L 118/59 L 11/14/19 11:40 58 L 113/58 L 11/14/19 11:20 52 L 100/61 11/14/19 11:00 66 128/64 11/14/19 10:40 78 124/66 11/14/19 10:20 60 106/56 L 11/14/19 10:04 61 105/49 L 11/14/19 09:55 36.6 C 63 11/14/19 07:39 36.3 C L 69 18 115/69 Pulse Ox 11/14/19 15:56 99 11/14/19 14:25 11/14/19 14:05 11/14/19 14:00 11/14/19 13:40 11/14/19 13:20 11/14/19 13:00 11/14/19 12:40 11/14/19 12:20 11/14/19 12:00 11/14/19 11:40 11/14/19 11:20 11/14/19 11:00 11/14/19 10:40 11/14/19 10:20 11/14/19 10:04 11/14/19 09:55 11/14/19 07:39 100 Laboratory Results BMP 11/14/19 06:49 Sodium 137 Potassium 3.8 Chloride 103 Carbon Dioxide 26 BUN 34 H Creatinine 5.11 H* D Glucose 94 Calcium 9.5
[2019-11-14] MEDS: INSULIN GLARGINE SOLOSTAR 100 UNITS/ML 3 ML PEN SC SCH (21:00)
[2019-11-15 06:20] LABS: Hematocrit (blood only) 29.3 % (42-52); Hemoglobin 9.2 g/dL (14.0-18.0); Mean Corpuscular Hemoglobin 34.1 pg (25-34); Mean Corpuscular Hgb Conc 31.4 g/dL (32-36); Mean Corpuscular Volume 108.5 fL (80-100); Mean Platelet Volume 11.5 fL (7.4-10.4); Platelet Count 325 K/uL (130-400); RDW Standard Deviation 62.9 fL (36.4-46.3); White Blood Count 7.55 K/uL (4.8-10.8)
[2019-11-15 06:41] LABS: INR 2.6 (0.9-1.1); Prothrombin Time 25.7 Seconds (9.0-12.0)
[2019-11-15 06:48] LABS: BUN Creatinine Ratio 5.2 (10-20); Calcium 8.5 mg/dl (8.5-10.1); Est GFR (African American) 22.9; Est GFR (Non-African American) 19.8; Potassium 3.9 mmol/L (3.5-5.1)
[2019-11-15] MEDS: TOBRAMYCIN SULFATE INH SCH (06:53)
[2019-11-15] MEDS: ALBUT/IPRATROP 3MG/0.5MG NEB 3 ML VIAL NEB SCH (06:53)
[2019-11-15] MEDS: FLUTICASONE/VILANTEROL 100/25MCG 14 PUFFS/INHALER INH SCH (08:14)
[2019-11-15] MEDS: ACYCLOVIR 200 MG CAP PO SCH (08:15)
[2019-11-15] MEDS: MYCOPHENOLATE SODIUM 180 MG TAB PO SCH (08:15)
[2019-11-15] MEDS: POTASSIUM CHLORIDE 20 MEQ TABCR PO SCH (08:15)
[2019-11-15] MEDS: CLOPIDOGREL BISULFATE 75 MG TAB PO SCH (08:16)
[2019-11-15] MEDS: MONTELUKAST SODIUM 10 MG TABLET PO SCH (08:16)
[2019-11-15] MEDS: predniSONE 5 MG TAB PO SCH (08:16)
[2019-11-15] MEDS: TACROLIMUS 0.5 MG CAP PO SCH (08:17)
[2019-11-15] MEDS: PANTOprazole 40 MG TAB PO SCH (08:17)
[2019-11-15] MEDS: AMLODIPINE BESYLATE 5 MG TAB PO SCH (08:17)
[2019-11-15] MEDS: INSULIN ASPART 100 UNITS/ML 3 ML PEN SC SCH ×2 (08:20→13:21)
--- NOTE | 2019-11-15 10:02 | Nephrology Progress Note ---
Date of Service November 15, 2019 Assessment & Plan (1) ESRD (end stage renal disease) on dialysis: -- Volume status and electrolyte balance acceptable. No acute indication for HD today -- Bumex has been stopped since patient has been oliguric -- Discharge planning to set up outpatient HD TTS at [facility] -- Fistulogram completed 11/06/[address] Oconnell. Multiple stenotic areas were angioplastied (2) Anemia secondary to renal failure: -- Will provide FELICIANO w/ HD tomorrow -- Venofer 1 g infusion completed 11/05/19. -- Iron sat 20% w/ ferritin 1,000 11/15/19 (3) HTN (hypertension): -- BP well controlled. No change to current medical regimen (4) Lung transplant recipient: -- s/p L lung transplant at [facility] due to IPF Admission and Anticipated Discharge Date Admission Date: October 30, 2019 Subjective Mr. Bill was seen & examined in his hospital room this morning. He was alert and oriented to self. Difficult to communicate - extremely [place]. Mr. Pantoja denied fever, angina or dyspnea. He is anxious to return home Review of Systems Constitutional: + weakness; no fever Eyes: no problem reported Ear, Nose, Mouth, Throat: no problem reported Respiratory: no cough and no dyspnea Cardiovascular: no chest pain, no palpitations and no edema Gastrointestinal: no abdominal pain, no nausea, no vomiting and no diarrhea/loose stools Genitourinary: no dysuria, no urinary hesitancy and no hematuria Musculoskeletal: no back pain Integumentary: no rash Neurologic: hard of hearing. Oriented to self Physical Exam Constitutional: + frail appearing; not in distress Eyes: PERRL, conjunctivae normal, anicteric sclerae ENMT: external ear and nose normal, oropharynx normal Neck: trachea midline, no thyromegaly Respiratory: normal respiratory effort, lungs clear to auscultation Cardiovascular: RRR, no murmur, no edema Extremities: + AV fistula (+ bruit) Gastrointestinal (Abdomen): normal bowel sounds, soft, nontender, no hepatosplenomegaly Musculoskeletal: Extremities: no cyanosis Skin: no rashes, warm and dry Neurologic: awake; not confused Results & Data ([place]) Vital Signs (Past 12 Hours) Vital Signs Temp Pulse Resp BP Pulse Ox 11/15/19 07:23 36.7 C 69 18 139/56 L 97 11/15/19 06:55 65 16 98 11/15/19 03:09 36.8 C 61 19 124/61 99 11/14/19 22:55 37 C 65 18 125/56 L 98 Laboratory Results Laboratory Tests 11/15/19 11/15/19 05:57 05:57 WBC 7.55 Hgb 9.2 L Hct 29.3 L Plt Count 325 Sodium 140 Potassium 3.9 Chloride 107 Carbon Dioxide 28 BUN 15 D Creatinine 2.92 H D Glucose 80 PG Care Time/CCT Total # of Minutes Spent Total Time Spent with Patient: Total time spent is greater than 50% in coordination of care (as documented) at patient's floor/unit and/or counseling patient: Coding Level of Care Code 78649 Subseq Hosp Care Lvl 3 Diagnoses ESRD (end stage renal disease) on dialysis N18.6; Z99.2 Anemia secondary to renal failure D63.1 HTN (hypertension) I10 Hypertension type: unspecified Lung transplant recipient Z94.2 (1) HTN (hypertension) Hypertension type: unspecified Qualified Code(s): I10 - Essential (primary) hypertension
[2019-11-15 12:22] VITALS: TEMP 98.6; O2SAT 99
--- NOTE | 2019-11-15 12:53 | Hospitalist Progress Note ---
Date of Service November 15, 2019 Assessment & Plan (1) Acute hypoxemic respiratory failure: Acute respiratory failure with hypoxia Ventilator dependent respiratory failure: Extubated 11/05/19 Secondary to pulmonary edema and could be due to pneumonia Volume overload in setting of Acute Systolic CHF, ESRD, IPF COVID-19 screen and influenza screen are negative Had bronchoscopy on 11/01/19 Blood culture from 10/31/19 growing GPR.Likely contaminant. Repeat blood cultures negative. BAL cultures negative Completed intravenous Zosyn therapy Appreciate android architect input and recommendation Remains stable in medical floor without significant shortness of breath at rest Like to be discharged today to [facility] Has had bradyarrhythmia Rate is controlled now Prolonged QTC No pauses on Tele Appreciate cardiology input and recommendation Will discontinue beta-cally Will need follow-up with cardiology upon discharge Altered Mental Status Likely Delirium H/O Depression CT head: No acute intracranial abnormality. 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 Prozac held due to QTC Prolongation Appreciate psychiatry input and recommendation Better to have Prozac and a smaller dose like 10 mg a day for depression and anxiety Remeron is sedating Will start Prozac 10 mg daily as recommended Supratherapeutic INR: H/O DVT INR now therapeutic Will restart Coumadin ESRD H/O OLIVIER, Tobramycin, HTN, DM H/O diabetic retinopathy Appreciate Nephrology Input and recommendation Avoid nephrotoxic agents as able Monitor electrolytes and renal function Elevated Troponin In setting of end-stage renal disease, CHF Likely demand ischemia EKG showed no signs of acute ischemia Beam Carrier Hauler Pusher evaluation completed H/O CAD S/P Stent Metoprolol held due to bradycardia Continue Statin, plavix Also on anticoagulation with coumadin 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 Mari Teixeira on 11/01/19 Contact NO:[phone] Current medications have been adjusted appropriately for renal function Transplant physician transition program manager:l [phone] [place] level:normal Plan to discontinue Azithromycin upon discharge due to QTC Prolongation: OK as per [facility] Transplant Physician Dr.Silpa Rodriguez: Discussed on 11/14/19 Dr.Silpa Rodriguez (Contact No:[phone]) Prefers to be updated on discharge planning to arrange for follow up visit with [facility]. DM II Hb A1C: 5.24 September 2019 Continue Insulin therapy Monitor BGs DVT Px: Coumadin Code Status Full code Disposition Waiting for Rehab placement Update [facility] Transplant physician prior to discharge. Will be transferred to [facility] this afternoon Admission and Anticipated Discharge Date Admission Date: October 30, 2019 Subjective The patient was seen and examined in medical telemetry unit He remains drowsy and pleasantly confused Denies any significant symptoms Review of Systems 2 Review of Systems: All systems reviewed and are unremarkable except as noted below Constitutional: + fatigue and + weakness Respiratory: no cough and no dyspnea Cardiovascular: no chest pain Musculoskeletal: No acute arthritis in any joints Physical Exam Physical Exam: Lying in bed comfortably Constitutional: well developed and + ill appearing; no acute distress Eyes: PERRL, conjunctivae normal, anicteric sclerae ENMT: external ear and nose normal, oropharynx normal Neck: trachea midline, no thyromegaly Respiratory: normal respiratory effort; no respiratory distress Auscultation: + crackles (Minimal crackles at the bases) Cardiovascular: Rate/Rhythm: + irregularly irregular Heart Sounds: + murmur (2/6 ejection systolic murmur over precordium) Gastrointestinal (Abdomen): Inspection/Auscultation: abdomen normal to inspection and normal bowel sounds; abdomen not distended Percussion/Palpation: abdomen soft; abdomen nontender Musculoskeletal: No acute arthritis involving any joints Neurologic: moves all extremities; no focal motor deficits Generally weak and lethargic. Pleasantly confused Psychiatric: Mood: + depressed mood Insight: + limited insight Lymphatic: no cervical or axillary lymphadenopathy Results & Data Results & Data ([facility]) Vital Signs (Past 12 Hours) Vital Signs Temp Pulse Resp BP Pulse Ox 11/15/19 12:22 37.0 C 78 20 133/61 99 11/15/19 07:23 36.7 C 69 18 139/56 L 97 11/15/19 06:55 65 16 98 11/15/19 03:09 36.8 C 61 19 124/61 99 Laboratory Results Short CBC 11/15/19 Range/Units 05:57 WBC 7.55 (4.8-10.8) K/uL Hgb 9.2 L (14.0-18.0) g/dL Hct 29.3 L (42-52) % Plt Count 325 (130-400) K/uL BMP 11/15/19 05:57 Sodium 140 Potassium 3.9 Chloride 107 Carbon Dioxide 28 BUN 15 D Creatinine 2.92 H D Glucose 80 Calcium 8.5 Medications Administered Current Inpatient Medications Acetaminophen (Tylenol) 650 mg PO Q4H PRN PRN Reason: Pain or Fever Stop: 11/30/19 00:18 Last Admin: 11/12/19 08:28 Dose: 650 mg Documented by: Acyclovir (Zovirax) 400 mg PO BID [facility], [facility] Stop: 12/10/19 20:59 Last Admin: 11/15/19 08:15 Dose: 400 mg Documented by: Albuterol (Duoneb) 3 ml NEB BIDR [facility], [facility] Stop: 12/06/19 18:59 Last Admin: 11/15/19 06:53 Dose: 3 ml Documented by: Amlodipine Besylate (Norvasc) 5 mg PO QAM [facility], [facility] Stop: 12/01/19 08:59 Last Admin: 11/15/19 08:17 Dose: 5 mg Documented by: Atropine Sulfate (Atropine Sulfate) 0.5 mg IV Q3M PRN PRN Reason: .SYMPTOMATIC BRADYCARDIA Stop: 11/30/19 00:48 Calamine/Phenol (Calmoseptine) 1 appln EXT UD PRN PRN Reason: reddness to bottom/scrotum Stop: 12/08/19 21:29 Last Admin: 11/14/19 08:46 Dose: 1 appln Documented by: Clopidogrel Bisulfate (Plavix) 75 mg PO DAILY [facility], [facility] Stop: 12/01/19 08:59 Last Admin: 11/15/19 08:16 Dose: 75 mg Documented by: Cyclobenzaprine HCl (Flexeril) 5 mg PO TID PRN PRN Reason: Muscle Spasm Stop: 11/30/19 00:18 Dextrose (Dextrose 50%) 25 - 50 ml IV UD PRN; Protocol PRN Reason: Hypoglycemia Protocol Stop: 11/30/19 00:18 Doxazosin Mesylate (Cardura) 8 mg PO HS [facility] Stop: 11/30/19 20:59 Last Admin: 10/31/19 20:27 Dose: 8 mg Documented by: Epoetin Jimenez (Procrit) 10,000 units IV ONE ONE Stop: 11/16/19 07:01 Fluoxetine HCl (Prozac) 40 mg PO DAILY [facility] Stop: 11/30/19 08:59 Last Admin: 11/11/19 09:55 Dose: Not Given Documented by: Fluticasone/Vilanterol (Breo Ellipta 100/25 Mcg Inh) 1 puffs INH DAILY [facility] Stop: 11/30/19 08:59 Last Admin: 11/15/19 08:14 Dose: 1 puffs Documented by: Glucagon (Glucagen) 1 mg SQ UD PRN; Protocol PRN Reason: Hypoglycemia Protocol Stop: 11/30/19 00:18 Glucose (Dex4 Glucose) 4 - 8 tabs PO UD PRN; Protocol PRN Reason: Hypoglycemia Protocol Stop: 11/30/19 00:18 Glucose (Glucose 40%) 15 - 30 gm PO UD PRN; Protocol PRN Reason: Hypoglycemia Protocol Stop: 11/30/19 00:18 Heparin Sodium (Porcine) (Heparin Iv Bolus) 2,000 units IV ONE ONE Stop: 11/16/19 07:01 Hydralazine HCl (Apresoline) 10 mg PO Q8 [facility] Stop: 11/30/19 00:18 Last Admin: 11/01/19 06:04 Dose: Not Given Documented by: Promethazine HCl 12.5 mg/ (Sodium Chloride) 50.5 mls @ 202 mls/hr IV Q6H PRN PRN Reason: Nausea And Vomiting Stop: 11/30/19 00:18 Last Infusion: 10/31/19 12:35 Dose: Infused Documented by: Tobramycin Sulfate 150 mg/ (Syringe) 3.75 mls @ 0.033 mls/min INH Q12R [facility] Stop: 11/30/19 06:59 Last Admin: 11/15/19 06:53 Dose: 0.033 mls/min Documented by: Sodium Chloride (Nss 1000ml) 1,000 mls @ 0 mls/hr IV .Q0M PRN PRN Reason: For Hemodialysis Use ONLY Stop: 11/16/19 12:59 Insulin Aspart (Novolog Flexpen) 0 units SC ACHS [facility], [facility] Stop: 12/08/19 07:29 Last Admin: 11/15/19 08:20 Dose: 1 units Documented by: Insulin Glargine (Lantus Solostar Pen) 5 units SC HS [facility], [facility] Stop: 12/06/19 20:59 Last Admin: 11/14/19 21:00 Dose: 5 units Documented by: Magnesium Oxide (Mag-Ox) 400 mg PO DAILY@1600 MARLYS Stop: 12/07/19 15:59 Last Admin: 11/14/19 17:06 Dose: Not Given Documented by: Metoprolol Succinate (Toprol Xl) 25 mg PO QAM [facility], [facility] Stop: 12/10/19 08:59 Last Admin: 11/11/19 09:17 Dose: Not Given Documented by: Miscellaneous (Carbohydrates For Hypoglycemia) 15 - 30 gm PO UD PRN PRN Reason: Hypoglycemia Protocol Stop: 11/30/19 00:18 Last Admin: 11/10/19 08:04 Dose: 15 gm Documented by: Montelukast Sodium (Singulair) 10 mg PO DAILY [facility], [facility] Stop: 11/30/19 08:59 Last Admin: 11/15/19 08:16 Dose: 10 mg Documented by: Mycophenolate Sodium (Myfortic) 180 mg PO BID [facility], [facility] Stop: 11/30/19 08:59 Last Admin: 11/15/19 08:15 Dose: 180 mg Documented by: Nitroglycerin (Nitrostat) 0.4 mg SL UD PRN PRN Reason: Chest Pain Stop: 11/30/19 00:18 Pantoprazole Sodium (Protonix) 40 mg PO BID [facility] Stop: 11/30/19 08:59 Last Admin: 11/15/19 08:17 Dose: 40 mg Documented by: Posaconazole (Noxafil) 3 ea PO DAILY@1500 [facility] Stop: 12/01/19 14:59 Last Admin: 11/14/19 17:06 Dose: Not Given Documented by: Potassium Chloride (Klor-Con M20) 20 meq PO QAM [facility] Stop: 12/10/19 08:59 Last Admin: 11/15/19 08:15 Dose: 20 meq Documented by: Prednisone (Prednisone) 5 mg PO DAILY [facility] Stop: 11/30/19 08:59 Last Admin: 11/15/19 08:16 Dose: 5 mg Documented by: Rosuvastatin Calcium (Crestor) 40 mg PO HS [facility] Stop: 11/30/19 20:59 Last Admin: 11/14/19 20:40 Dose: 40 mg Documented by: Tacrolimus (Prograf) 0.5 mg PO BID [facility], [facility]; Protocol Stop: 11/30/19 08:59 Last Admin: 11/15/19 08:17 Dose: 0.5 mg Documented by: Trimethoprim/Sulfamethoxazole (Septra 400/80mg Tab) 1 tab PO MoTh@0900 [facility] Stop: 11/30/19 00:18 Last Admin: 11/13/19 08:49 Dose: 1 tab Documented by: Warfarin Sodium (Coumadin) 2.5 mg PO DAILY@1600 [facility] Stop: 12/11/19 15:59 Last Admin: 11/11/19 16:45 Dose: 2.5 mg Documented by:
[2019-11-15] MEDS ORDERED: FLUOXETINE HCL 10 MG CAP PO SCH (13:00)
[2019-11-15 14:16] VITALS: BP 149/78; PULSE 75
[2019-11-15] MEDS: POSACONAZOLE 100 MG PO SCH (14:23)
[2019-11-16] MEDS ORDERED: EPOETIN ALFA 10,000 UNITS/ML VIAL IV ONE (07:00)
[2019-11-16] MEDS ORDERED: HEPARIN SOD (PORCINE) 1000 UNIT/ML 10 ML VIAL IV ONE (07:00)
[2019-11-16] MEDS ORDERED: SODIUM CHLORIDE 0.9% 1000ML 1,000 ML IV PRN (07:00)
--- NOTE | 2019-11-16 08:15 | Discharge Summary ---
Date of Service November 16, 2019 Admission HPI Per Admitting Provider History obtained from patient and records. History somewhat limited from patient given hearing impairment. Medical history significant for chronic systolic heart failure secondary to ischemic cardiomyopathy (EF 30 to 35% TTE 2019), CAD status post stent, A. fib on Coumadin, history of DVT as per records, hypertension, chronic respiratory failure secondary to pulmonary fibrosis status post lung transplantation on immu nosuppressive/antimicrobial suppression regimen, post transplant lymphoproliferative disorder as per records, skin cancer as per records, DM2 insulin requiring, ESRD, chronic anemia (baseline hemoglobin 8-9), mood disorder, past tobacco abuse. Recent confinement September 2019 for decompensated heart failure. Few days history of worsening shortness of breath usually on exertion, some fluid retention, dry cough without fever, chills. No known sick contacts/out-of-town travel. Denies aspiration. No chest pain. O2 sats noted to be as low as 80s at home today. Cardiac rate 40s as per record. No syncope or dizziness as per patient. 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 Patient advised to send patient to ER for evaluation if with persistent symptoms for possible initiation of dialysis. At the ER, O2 sats 80s at one point. Cardiac rate 30s to 50s. Patient given Solu-Medrol, Lasix, neb treatment at the emergency room. 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 Admission Exam Per Admitting Provider Physical Exam: GENERAL: Comfortable, no respiratory distress SKIN: Pallor , warm HEENT: Pale palpebral conjunctivae, no ptosis, dry buccal mucosa, nasal cannula in place NECK : Supple, no tenderness CHEST : Decreased breath sounds, expiratory wheezes , no tenderness HEART : Bradycardic , no obvious murmurs ABDOMEN: Some distention, nontender EXTREMITIES : Minimal LE swelling, no LE tenderness, no other conspicuous deform ities noted NEUROLOGIC : Coherent, no facial asymmetry, marked hearing impairment, no other gross focality Principal Diagnosis Acute hypoxic respiratory failure, pulmonary edema with end-stage renal disease, atrial fibrillation, idiopathic pulmonary fibrosis status post left lung transplantation in 2013 Discharge Exam Constitutional well developed and + ill appearing; no acute distress Eyes PERRL, conjunctivae normal, anicteric sclerae ENMT external ear and nose normal, oropharynx normal Neck trachea midline, no thyromegaly Respiratory normal respiratory effort; no respiratory distress Auscultation: + crackles (Minimal crackles at the bases) Cardiovascular Rate/Rhythm: + irregularly irregular Heart Sounds: + murmur (2/6 ejection systolic murmur over precordium) Gastrointestinal (Abdomen) Inspection/Auscultation: abdomen normal to inspection and normal bowel sounds; abdomen not distended Percussion/Palpation: abdomen soft; abdomen nontender Neurologic moves all extremities; no focal motor deficits Psychiatric Mood: + depressed mood Insight: + limited insight Lymphatic no cervical or axillary lymphadenopathy Discharge Data Allergies Allergy/AdvReac Type Severity Reaction Status Date / Time levofloxacin Allergy Intermediate ANAPHYLAXIS Verified 10/30/19 23:01 oxycodone Allergy Intermediate ANAPHYLAXIS Verified 10/30/19 23:01 cat dander Allergy Unknown CHEST Verified 10/30/19 23:02 TIGHTNESS Consultations 10/30/19 20:08 ED Decision to Admit Stat 10/31/19 00:19 Consult Cardiology Routine Consult Case Management - Discharge Planning Routine Consult Nephrology Routine 10/31/19 11:50 Consult Case Management - Discharge Planning Routine 10/31/19 13:24 Consult Laborer Shellfish Processing Routine 11/01/19 17:00 Consult Vascular Surgery Routine 11/13/19 09:18 Consult Psychiatry Routine Procedures Performed Operation Date: 11/06/19 15:05 Actual Procedures p Fistulogram, Percutaneous Transluminal Angioplasty Peripheral Venous(Right) - Fran Oconnell MD Ordered Studies 11/01/19 16:57 US hemodialysis access Routine 11/03/19 13:46 US point of care ultrasound Urgent 11/06/19 07:15 Angio shunt [EV angio arteriovenous shunt] Routine 11/11/19 13:50 CT head/brain wo con Routine 11/13/19 01:48 CT foot LT wo con Urgent Hospital Course (1) Acute hypoxemic respiratory failure: Acute respiratory failure with hypoxia Ventilator dependent respiratory failure: Extubated 11/05/19 Secondary to pulmonary edema and could be due to pneumonia Volume overload in setting of Acute Systolic CHF, ESRD, IPF COVID-19 screen and influenza screen are negative Had bronchoscopy on 11/01/19 Blood culture from 10/31/19 growing GPR.Likely contaminant. Repeat blood cultures negative. BAL cultures negative Completed intravenous Zosyn therapy Appreciate rn camp input and recommendation Remains stable in medical floor without significant shortness of breath at rest Like to be discharged today to [facility] Has had bradyarrhythmia Rate is controlled now Prolonged QTC No pauses on Tele Appreciate cardiology input and recommendation Will discontinue beta-cally Will need follow-up with cardiology upon discharge Altered Mental Status Likely Delirium H/O Depression CT head: No acute intracranial abnormality. 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 Prozac held due to QTC Prolongation Appreciate psychiatry input and recommendation Better to have Prozac and a smaller dose like 10 mg a day for depression and anxiety Remeron is sedating Will start Prozac 10 mg daily as recommended Supratherapeutic INR: H/O DVT INR now therapeutic Will restart Coumadin ESRD H/O OLIVIER, Tobramycin, HTN, DM H/O diabetic retinopathy Appreciate Nephrology Input and recommendation Avoid nephrotoxic agents as able Monitor electrolytes and renal function Elevated Troponin In setting of end-stage renal disease, CHF Likely demand ischemia EKG showed no signs of acute ischemia Die Trouble Shooter evaluation completed H/O CAD S/P Stent Metoprolol held due to bradycardia Continue Statin, plavix Also on anticoagulation with coumadin Idiopathic Pulmonary 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 Mari Teixeira on 11/01/19 Contact NO:[phone] Current medications have been adjusted appropriately for renal function Transplant physician network operations manager:l [phone] [place] level:normal Plan to discontinue Azithromycin upon discharge due to QTC Prolongation: OK as per [facility] Transplant Physician Dr.Silpa Rodriguez: Discussed on 11/14/19 Dr.Silpa Rodriguez (Contact No:[phone]) Prefers to be updated on discharge planning to arrange for follow up visit with [facility]. DM II Hb A1C: 5.24 September 2019 Continue Insulin therapy Monitor BGs DVT Px: Coumadin Code Status Full code Disposition Waiting for Rehab placement Update [facility] Transplant physician prior to discharge. Will be transferred to [facility] this afternoon Total Time Total Time Spent Total Time Spent (In Minutes): 35 minutes Total Time Includes: Examination of the Patient, Discharge Planning, Medication Reconciliation and Communication With Other Providers Discharge Plan Discharge Items Patient Disposition: Transfer Inpatient Rehab Fac Reason For Visit: SOB, BRADYCARDIA Discharge Diagnosis: Acute hypoxic respiratory failure, pulmonary edema with end-stage renal disease, atrial fibrillation, idiopathic pulmonary fibrosis status post left lung transplantation in 2013 Condition on Discharge: Fair Activity: As commented below Activity Comment: Will need to continue PT and OT Non-emergency contact: Primary Care Provider Call non-emergency contact if: you have any medication questions and your symptoms worsen Follow-up/Referrals: Carlton Lindo, [Primary Care Provider] - (Please make an appointment with your primary care provider within 7 days following discharge from the facility. Please make an appointment with your mis director in about 2 to 3 weeks ) Diet: Carb Consistent or DM2 and Low Sodium (2gm) Diet Texture: Easy to Chew Addtl Attending Provider Instructions: Please take precaution to avoid fall. Pending Studies at Discharge: No Stand-Alone Forms: [email or web address] Skilled Items Patient informed of condition?: Yes DNR: No Discharge Level of Care: Skilled Communicable Disease: No Discharge Prognosis: Stable Lines: None Urinary Catheter: No Medications and DC Order Prescriptions: Continued Aranesp (in polysorbate) 100 mcg/mL solution 100 mcg subcut WEEKLY Qty: 4 RF: 3 sodium bicarbonate 650 mg tablet 1,300 mg PO BID Qty: 60 RF: 6 pantoprazole [Protonix] 40 mg tablet,delayed release (DR/EC) 40 mg PO BID RF: 0 Slow-Mag 71.5 mg tablet,delayed release (DR/EC) 143 mg PO DAILY RF: 0 rosuvastatin [Crestor] 40 mg tablet 40 mg PO HS Qty: 90 RF: 0 mycophenolate sodium [Myfortic] 180 mg tablet,delayed release (DR/EC) 180 mg PO BID RF: 0 tacrolimus [Prograf] 0.5 mg capsule 0.5 mg PO BID RF: 0 fluticasone propion-salmeterol [Advair Diskus] 500-50 mcg/dose blister with device 1 puffs INH Q12H RF: 0 albuterol sulfate 2.5 mg /3 mL (0.083 %) solution for nebulization 2.5 mg continuous nebulization BID RF: 0 montelukast [Singulair] 10 mg tablet 10 mg PO DAILY RF: 0 insulin lispro [Humalog U-100 Insulin] 100 unit/mL solution 0 - 140 sliding scale dose subcut TID PRN (Reason: Hyperglycemia) RF: 0 doxazosin 4 mg tablet 8 mg PO HS RF: 0 clopidogrel [Plavix] 75 mg tablet 75 mg PO DAILY Qty: 30 RF: 0 cyclobenzaprine 5 mg tablet 5 mg PO TID PRN (Reason: Muscle Spasm) RF: 0 prednisone 5 mg tablet 5 mg PO DAILY RF: 0 acetaminophen [Tylenol Extra Strength] 500 mg Tablet 500 mg PO Q6H PRN (Reason: Fever Or Pain) RF: 0 omega-3 acid ethyl esters [Lovaza] 1 gram capsule 2 cap PO BID RF: 0 tobramycin 300 mg/4 mL Solution For Nebulization 150 mg INHALATION Q12H RF: 0 posaconazole [Noxafil] 100 mg Tablet,Delayed Release (Dr/Ec) 300 mg PO DAILY RF: 0 acyclovir 400 mg tablet 400 mg PO BID RF: 0 sulfamethoxazole-trimethoprim [Bactrim] 400-80 mg Tablet 1 tab PO 2XWK RF: 0 calcitriol 0.25 mcg capsule 0.25 mcg PO 3XWK RF: 0 hydralazine 10 mg tablet 10 mg PO Q8H RF: 0 warfarin 2.5 mg tablet 2.5 mg PO QPM RF: 0 Discontinued fluoxetine 20 mg capsule 40 mg PO DAILY RF: 0 azithromycin [Zithromax] 250 mg tablet 250 mg PO 3XWK RF: 0 metoprolol succinate [Toprol XL] 100 mg tablet extended release 24 hr 100 mg PO DAILY RF: 0 amlodipine [Norvasc] 5 mg Tablet 10 mg PO QAM 30 Days Qty: 60 RF: 0 furosemide [Lasix] 40 mg tablet 80 mg PO DAILY RF: 0 Discharge Orders: Discharge Order (Routine); Ordered 11/15/19 Ordered By: Leo Summers Admission Data Admit Date/Time: 10/30/19 23:07 Attending Provider: Leo Summers Admit Provider: Corey James Primary Care Provider: Carlton Lindo Other Providers: [employer] ; Dex Beth ; [email or web address] ; [facility] ; Corey James ; Scotty Chopra ; Lauren Sterling ; Alton Hansen ; Fran Oconnell ; Lorena Yu Other Interventions: Discharge Summary Assessment (RN) Last Done: 11/15/19 14:13 DC Date/Time DO NOT enter until pt leaves facility: 11/15/19 15:25
== END 2019-11-15 15:25 | DRG 208 ==
LOC: ED 17:55 → SUATTDRO 23:07 → 1E 23:07 → 2W 11-09 11:58